=== PATIENT | female | born 1935 | race Caucasian/White ===

== ENCOUNTER 2016-11-10 09:44 | Outpatient (RCR) | payer MEDICARE, OTHER ==
[~2016-11-10 09:44] MED LIST: ASPI-875 PO; CARV3.12 PO; CARV3.122 PO; CPR500T PO; MAGNESIUM PO; METO50TA7 PO; OMEG10005 PO; OMEG1CAP51 PO; OMEGA Q PLUS; OMEGA Q PLUS PO; PRM25T PO; SMV20T PO; fish oil; magnesium
== END 2016-12-06 16:19 | disposition home or self-care (01) ==
PROVIDERS: ATTEND Nurse Practitioner Family
DX: M54.5 Low back pain (principal)

== ENCOUNTER 2017-08-20 16:31 | Emergency (ER) | payer MEDICARE, OTHER ==
[~2017-08-20] VITALS: Ht 167.6 cm; Wt 88.5 kg
--- NOTE | 2017-08-20 16:52 | ED Lower Extremity ---
General Chief Complaint: Lower Extremity Stated Complaint: PAIN IN R LEG Source: patient Exam Limitations: no limitations (CHICHI LUCAS MD) History of Present Illness Time seen by provider: 16:47 Initial Comments The patient is an 81-year-old white female who presents with a complaint of pain in her left leg. She points to an area at about the distal border of the proximal one third of the tibia and on the lateral aspect of the tibia. Has not gotten any worse today. There is been no particular injury that she can recall. There is no past history of thrombophlebitis but she is concerned about this. Onset: yesterday Pain/Injury Location: left leg Method of Injury: unknown (CHICHI LUCAS MD) Initial Comments PAIN BEGAN YESTERDAY NO INJURY OR UNUSUAL ACTIVITY NO SWELLING OR BRUISING NO PARESTHESIAS OR MOTOR DEFICITS (ASHLEY MANN DO) Allergies and Home Medications Allergies Uncoded Allergies: SULFA (Allergy, Mild, HIVES, 04/21/10) Home Medications Lisinopril 10 Mg Tablet, 10 MG PO DAILY, (Reported) Meloxicam 7.5 Mg Tablet, 7.5 MG PO DAILY, #10 Prescribed by: ASHLEY MANN on 08/20/17 182 Constitutional: see HPI EENTM: no symptoms reported Respiratory: no symptoms reported Cardiovascular: no symptoms reported Gastrointestinal: no symptoms reported Genitourinary: no symptoms reported Musculoskeletal: muscle pain Skin: other Psychiatric/Neurological: No Symptoms Reported (CHICHI LUCAS MD) Past Slinoju-Jtwaja-Lntexs Hx Patient Social History Recent Foreign Travel: No Contact w/Someone Who Travel: No (CHICHI LUCAS MD) Surgeries Surgeries: Eye Surgery (CHICHI LUCAS MD) Cardiovascular Cardiac Disorders: Palpitations (CHICHI LUCAS MD) Musculoskeletal Musculoskeletal Disorders: Arthritis (CHICHI LUCAS MD) Physical Exam Vital Signs Vital Sign - Last 12Hours 08/20/17 16:45 Temp 97.0 Pulse 84 Resp 18 B/P (MAP) 199/93 (128) Pulse Ox 97 (ASHLEY MANN DO) Vital Signs Capillary Refill : (CHICHI LUCAS MD) General Appearance: WD/WN, no apparent distress HEENT: normal ENT inspection Neck: full range of motion Cardiovascular: normal peripheral pulses, regular rate, rhythm, no edema, no gallop, no JVD, no murmur Respiratory: chest non-tender, lungs clear, normal breath sounds, no respiratory distress, no accessory muscle use Gastrointestinal: normal bowel sounds, non tender, soft, no organomegaly, no pulsatile mass Legs: left leg soft tissue tenderness Neurologic/Psychiatric: hr clerk II-XII nml as tested, no motor/sensory deficits, alert, normal mood/affect, oriented x 3 Skin: normal color Lymphatic: no adenopathy (CHICHI LUCAS MD) Progress/Results/Core Measures Results/Orders My Orders Orders - ASHLEY MANN DO Naproxen Tablet (Naprosyn Tablet) (08/20/17 18:30) Rx-Naproxen (Rx-Naprosyn) (08/20/17 18:35) (ASHLEY MANN DO) Vital Signs/I&O Vital Sign - Last 12Hours 08/20/17 16:45 Temp 97.0 Pulse 84 Resp 18 B/P (MAP) 199/93 (128) Pulse Ox 97 (ASHLEY MANN DO) Progress Note : Progress Note 1800--ASSUMED CARE FROM DR. LUCAS--PT IN ULTRASOUND BP DOWN AT DISMISSAL PT STATES SHE TAKES HER BP MEDICATION "WHEN SHE THINKS ABOUT IT" --WHICH IS RARELY, AND HAS NOT TAKEN IT TODAY OR FOR SEVERAL DAYS PT AMBULATES WITHOUT DIFFICULTY (ASHLEY MANN DO) Diagnostic Imaging Comments ULTRASOUND --NORMAL, NO DVT. PER TECH REPORT AT 1810 AND PER RADIOLOGIST REPORT @ 1843 Reviewed: Reviewed by Me (ASHLEY MANN DO) Departure Impression Impression: Primary Impression: Pain in left lower leg Disposition: HOME, SELF-CARE Condition: Stable (ERASED) Departure-Patient Inst. Referrals: TELMA VARGAS MD (PCP) Primary Care Physician Patient Instructions: Muscle and Bone Pain (DC) Add. Discharge Instructions: ACTIVITIES TOLERATED FOLLOW UP WITH DR. VARGAS IN 3-4 DAYS IF NO BETTER All discharge instructions reviewed with patient and/or family. Voiced understanding. Scripts Meloxicam (Mobic) 7.5 Mg Tablet 7.5 MG PO DAILY, #10 TAB Prov: ASHLEY MANN DO 08/20/17 Images Extremities-Lower 1 - Mild, Tenderness (ASHLEY MANN DO) CHICHI LUCAS MD Aug 20, 2017 16:52 ASHLEY MANN DO Aug 20, 2017 18:19
[2017-08-20] MEDS ORDERED: LISI10TA2 PO (16:54)
[2017-08-20] MEDS ORDERED: MELO-170 PO (18:26)
[2017-08-20] MEDS ORDERED: NAPROXEN 250 MG (NAPROSYN) TABLET PO ONE (18:30)
--- NOTE | 2017-08-20 18:31 | Diagnostic Imaging Report ---
PROCEDURE: US left lower extremity venous. TECHNIQUE: Multiple real-time grayscale images were obtained over the left lower extremity in various projections. Additional duplex Doppler and color Doppler images were also obtained. INDICATION: Left leg pain. Swelling. FINDINGS: There is normal compression, flow and augmentation from the common femoral vein through the popliteal vein. Visualized calf veins are also patent. IMPRESSION: No sonographic evidence of left lower extremity deep venous thrombosis. Dictated by: Dictated on workstation # [id number]
[2017-08-20] MEDS ORDERED: RX-NAPROXEN (NAPROSYN) 250 MG TAB PPK#4 PO ONE (18:35)
[2017-08-20 18:45] VITALS: BP 186/94
== END 2017-08-20 18:45 | disposition home or self-care (01) ==
LOC: EDUNIT# 16:31 → ER 16:33
DX: M79.662 Pain in left lower leg (principal)
CPT/HCPCS: 99283

== ENCOUNTER 2018-09-03 14:15 | Outpatient (RCR) | payer MEDICARE, OTHER ==
[~2018-09-03 14:15] MED LIST changes: +LISI10TA2 PO; +MELO-170 PO
== END 2018-10-07 | disposition home or self-care (01) ==
PROVIDERS: ATTEND Orthopaedic Surgery Sports Medicine
DX: M17.0 Bilateral primary osteoarthritis of knee (principal)

== ENCOUNTER → 2018-12-13 | Outpatient (CLI) | payer MEDICARE, OTHER ==
[~2018-12-13] MED LIST changes: +CATHETER FLUSH 10 ML SYR IV PRN; +HOLD METFORMIN - RECEIVED CONTRAST 20 ML VIAL IV SCH; +IOHEXOL 350 MG/ML 100 ML (OMNIPAQUE 350) VIAL IV ONE
--- NOTE | 2018-12-13 18:40 | Diagnostic Imaging Report ---
INDICATION: Right-sided neck swelling for one week as well as weakness and dizziness. TECHNIQUE: Axial imaging through the neck and chest was performed after the administration of intravenous contrast. COMPARISON: No prior studies are available for comparison. FINDINGS: CT neck: Visualized intracranial structures are unremarkable. Posterior nasopharynx is unremarkable. There is questionable mild generalized mucosal thickening of the oropharynx but no discrete mass is identified. Parapharyngeal fat planes are preserved. The epiglottis and larynx are unremarkable. No discrete thyroid mass is detected. Submandibular and parotid glands are symmetric bilaterally. There appears to be abnormal soft tissue in the right supraclavicular region, most consistent with lymphadenopathy. This measures 6.0 x 2.6 cm. Additional enlarged lymph nodes medial to this are also seen. Posterior cervical space is unremarkable. No significant jugulodigastric lymphadenopathy is seen. IMPRESSION: Right supraclavicular lymphadenopathy. This could be neoplastic or lymphomatous. No other significant abnormality in the neck is identified. CT chest: Soft tissue fullness in the right supraclavicular region is again noted, described on CT neck study. There are enlarged lymph nodes in the right paratracheal location as well. Largest node measures 1.8 x 1.6 cm. No definite hilar lymphadenopathy is seen. The heart is enlarged. There is no pericardial or pleural fluid identified. No pulmonary parenchymal mass is detected. Upper abdomen is without evidence of an adrenal mass. IMPRESSION: Mediastinal and right supraclavicular lymphadenopathy which could be on a neoplastic or lymphomatous basis. No other significant abnormality is detected. Dictated by: Dictated on workstation # [id number]
== END ==
LOC: RAD 17:06
PROVIDERS: ATTEND Nurse Practitioner Family
DX: R59.0 Localized enlarged lymph nodes (principal)
CPT/HCPCS: 70491; 71260

== ENCOUNTER → 2018-12-24 | Outpatient (CLI) | payer MEDICARE, OTHER ==
[~2018-12-24] VITALS: Ht 167.6 cm; Wt 86.2 kg
[~2018-12-24] MED LIST changes: -CATHETER FLUSH 10 ML SYR IV PRN; -HOLD METFORMIN - RECEIVED CONTRAST 20 ML VIAL IV SCH; -IOHEXOL 350 MG/ML 100 ML (OMNIPAQUE 350) VIAL IV ONE; +LIDOCAINE 1% INJ 20 ML 20 ML VIAL INJ ONE
--- NOTE | 2018-12-24 12:53 | Diagnostic Imaging Report ---
INDICATION: Right supraclavicular mass noted on recent CT. The patient presents for ultrasound guided biopsy. TECHNIQUE: The patient was brought to the procedure room and placed on the bed in the supine position. Ultrasound imaging over the right supraclavicular region was performed to evaluate for an appropriate entry site. The right supraclavicular region was prepped and draped in the usual sterile fashion. A small amount of 1% lidocaine was utilized for local anesthesia. A total of four passes was made into the solid appearing mass in the right supraclavicular region with a 14-gauge Achieve needle. Core sampling was performed. One sample was sent for flow cytometry. The needle was removed and hemostasis was obtained using manual compression. The patient tolerated the procedure well and left the Department in stable condition. IMPRESSION: Successful ultrasound guided core biopsy of the solid right supraclavicular mass. Pathology results are currently pending. Dictated by: Dictated on workstation # [id number]
== END ==
LOC: RAD 11:04
PROVIDERS: ATTEND Surgery
DX: C85.11 Unspecified B-cell lymphoma, lymph nodes of head, face, and neck (principal)
CPT/HCPCS: 76942; 88184; 88185; 88305

== ENCOUNTER → 2019-01-03 | Outpatient (CLI) | payer MEDICARE, OTHER ==
[~2019-01-03] MED LIST changes: -LIDOCAINE 1% INJ 20 ML 20 ML VIAL INJ ONE
== END ==
LOC: CARD 09:50
PROVIDERS: ATTEND Internal Medicine Hematology & Oncology
DX: Z01.810 Encounter for preprocedural cardiovascular examination (principal); C83.30 Diffuse large B-cell lymphoma, unspecified site; I34.0 Nonrheumatic mitral (valve) insufficiency
CPT/HCPCS: 93306

== ENCOUNTER → 2019-01-08 | Outpatient (CLI) | payer MEDICARE, OTHER ==
--- NOTE | 2019-01-08 13:56 | Diagnostic Imaging Report ---
INDICATION: Diffuse large B-cell lymphoma, initial staging. TECHNIQUE: Serum blood glucose level at the time of injection is 97 mg/dL. Patient was administered 13.5 mCi F-18 FDG intravenously in the left antecubital location and PET imaging was performed from the top of the skull to mid thighs. Noncontrast CT was also performed for attenuation correction and anatomic correlation. COMPARISON: No prior PET studies available for comparison. Comparison is made with prior CT neck and chest performed 12/13/2018. FINDINGS: Symmetric activity within the brain is identified. There is a moderately hypermetabolic lymph node in the left jugulodigastric location with SUV max of 4.8. No other hypermetabolic cervical nodes are seen. There is an intense hypermetabolism involving the dominant right supraclavicular mass which was previously biopsied. This demonstrates SUV max of approximately 12.6. Smaller hypermetabolic mass just medial and slightly posterior to this is also noted demonstrating SUV max of 5.8. There is hypermetabolism arising either within or medially posterior to both lobes of the thyroid gland. These both show intense hypermetabolism. Right paratracheal lymph node is hypermetabolic with SUV max of 6.5. No hilar hypermetabolism is seen. Pulmonary parenchyma is unremarkable. Abdomen and pelvis demonstrate physiologic activity within the GI and tracts. No hypermetabolic abdominal or pelvic lymphadenopathy is detected. IMPRESSION: Numerous hypermetabolic lymph nodes are identified in the neck, specifically left jugular digastric as well as right supraclavicular location. There is also intense hypermetabolism arising from within or immediately posterior to the thyroid. Dedicated thyroid ultrasound would be useful. Hypermetabolism in the right paratracheal mediastinum is present as well. No hilar hypermetabolism is seen. No abdominal or pelvic hypermetabolism is identified. Dictated by: Dictated on workstation # [id number]
== END ==
LOC: RAD 09:33
PROVIDERS: ATTEND Internal Medicine Hematology & Oncology
DX: Z01.810 Encounter for preprocedural cardiovascular examination (principal); C83.30 Diffuse large B-cell lymphoma, unspecified site

== ENCOUNTER 2019-01-10 10:03 | Day surgery (SDC) | payer MEDICARE, OTHER ==
[2019-01-10] VITALS (7 sets, daily range): BP systolic 124–153; BP diastolic 57–90
[~2019-01-10] VITALS: Ht 167.6 cm; Wt 86.2 kg
[2019-01-10] MEDS ORDERED: HEParin (CENTRAL IV FLUSH) 500 UNIT/5 ML SYR ONE (12:01)
[2019-01-10] MEDS ORDERED: 0.9% SODIUM CHLORIDE PF INJ 20 ML VIAL ONE (12:01)
[2019-01-10] MEDS ORDERED: BUP/EPI 0.5% 1:200,000 (SENSORCAINE) 30 ML VIAL ONE (12:01)
[2019-01-10] MEDS ORDERED: LIDOCAINE 1% INJ 20 ML 20 ML VIAL ONE (12:01)
[2019-01-10] MEDS ORDERED: LACTATED RINGERS 1,000 ML IV PRN (12:03)
[2019-01-10] MEDS ORDERED: ONDANSETRON 4 MG/2 ML (SDV) Z0FRAN ONE (12:12)
[2019-01-10] MEDS ORDERED: proPOfol 200 MG/20 ML (DIPRIVAN) VIAL IV ONE (12:15)
--- NOTE | 2019-01-10 12:23 | Progress Note-Pre Operative ---
Pre-Operative Progress Note H&P Reviewed The H&P was reviewed, patient examined and no changes noted. Date Seen by Provider: January 10, 2019 Time Seen by Provider: 12:23 Date H&P Reviewed: January 10, 2019 Time H&P Reviewed: 12:23 Pre-Operative Diagnosis: diffuse b cell lymphoma WILLIE STAPLES DO January 10, 2019 12:23
--- OUTSIDE RECORDS SUMMARY | 2019-01-10 12:24 | XMS REPORT | CCD ---
Author Author [facility] Organization [facility] Address [address] [place] [address] Phone Care Team Providers Care Emergency Medical Service Coordinator Name Role Phone PP Unavailable CCM Unavailable Summary Purpose Interface Exchange Insurance Providers Payer name Policy type / Coverage type Covered libertarian ID Effective Begin Date Effective End Date WPS Medicare Part B Medicare Part B [id number] Unknown Cigna Medicare Part B [id number] Unknown Family history Daughter Diagnosis Age At Onset Breast cancer Unknown Mother Diagnosis Age At Onset Heart disease Unknown 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 Unknown Diabetes mellitus Type 2 Unknown Sister Diagnosis Age At Onset Cancer Unknown Father Diagnosis Age At Onset 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 Unknown Stroke Unknown Grandfather Diagnosis Age At Onset Breast cancer Unknown Sister Diagnosis Age At Onset Cancer Unknown Social History Social History Element Codes Description Effective Dates Marital status Unknown 04/27/2011 Number of children Unknown 4 [id number] 04/27/2011 Employment Unknown Retired 04/27/[address]: 161563507 Never smoker 04/27/[address]: 650610435 Never drinks alcohol 04/27/2011 Has the patient ever used illegal drugs? Unknown Has never used illegal drugs 04/27/2011 Allergies, Adverse Reactions, Alerts Substance Reaction Codes Entered Date Inactivated Date Status * NO KNOWN ENVIRONMENTAL ALLERGIES Unknown 04/27/2011 No Inactive Date Active * NO KNOWN FOOD ALLERGIES Unknown 04/27/2011 No Inactive Date Active SULFA(SULFONAMIDE ANTIBIOTICS) Unknown 06/14/2018 No Inactive Date Active Past Medical History Illness Codes Condition Status Onset Date Resolved Date Edema, unspecified ICD- 9: 782.3 ICD-10: R60.9 Active 12/06/2018 Unknown Other specified soft tissue disorders ICD-9: 729.81 ICD-10: M79.89 Active 12/06/2018 Unknown Bilateral primary osteoarthritis of knee ICD-9: 715.96 ICD-10: M17.0 Active 06/14/2018 Unknown Encounter for general adult medical examination with abnormal findings ICD-9: V70.0 ICD-10: Z00.01 Active 02/06/2017 Unknown Essential (primary) hypertension ICD-9: 401.9 ICD-10: I10 Active 07/21/2017 Unknown Low back pain ICD-9: 724.2 ICD-10: M54.5 Active 07/13/2015 Unknown Epigastric pain ICD-9: 789.06 ICD-10: R10.13 Active 07/21/2017 Unknown Encounter for gynecological examination (general) (routine) without abnormal findings ICD-9: V72.31 ICD-10: Z01.419 Active 10/17/2016 Unknown ESSENTIAL HYPERTENSION ICD-9: 401.9 Active 05/19/2014 Unknown HYPERLIPIDEMIA ICD-9: 272.4 Active 05/19/2014 Unknown HYPOTHYROIDISM ICD-9: 244.9 Active 05/19/2014 Unknown NONSPECIF SKIN ERUPT NEC ICD-9: 782.1 Active 10/25/2012 Unknown Drug therapy ICD-9: V58.69 Active 07/02/2012 Unknown Hyperlipidemia Unknown Active 10/20/2011 Unknown 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 Unknown Active 10/20/2011 Unknown Hypothryroidism Unknown Active 10/20/2011 Unknown Anticoagulant long-term use ICD-9: V58.61 Active 10/20/2011 Unknown Lesion of oral mucosa ICD- 9: 528.9 Inactive 10/20/2011 Unknown Nausea ICD-9: 787.02 Inactive 09/15/2011 Unknown BPPV (benign paroxysmal positional vertigo) ICD-9: 386.11 Active 09/15/2011 Unknown Problems Condition Codes Effective Dates Condition Status Edema, unspecified ICD- 9: 782.3 ICD-10: R60.9 12/06/2018 Active Other specified soft tissue disorders ICD-9: 729.81 ICD-10: M79.89 12/06/2018 Active Bilateral primary osteoarthritis of knee ICD-9: 715.96 ICD-10: M17.0 06/14/2018 Active Encounter for general adult medical examination with abnormal findings ICD-9: V70.0 ICD-10: Z00.01 02/06/2017 Active Essential (primary) hypertension ICD-9: 401.9 ICD-10: I10 07/21/2017 Active Low back pain ICD-9: 724.2 ICD-10: M54.5 07/13/2015 Active Epigastric pain ICD-9: 789.06 ICD-10: R10.13 07/21/2017 Active Encounter for gynecological examination (general) (routine) without abnormal findings ICD-9: V72.31 ICD-10: Z01.419 10/17/2016 Active ESSENTIAL HYPERTENSION ICD-9: 401.9 05/19/2014 Active HYPERLIPIDEMIA ICD-9: 272.4 05/19/2014 Active HYPOTHYROIDISM ICD-9: 244.9 05/19/2014 Active NONSPECIF SKIN ERUPT NEC ICD-9: 782.1 10/25/2012 Active Drug therapy ICD-9: V58.69 07/02/2012 Active Hyperlipidemia Unknown 10/20/2011 Active 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 Unknown 10/20/2011 Active Hypothryroidism Unknown 10/20/2011 Active Anticoagulant long-term use ICD-9: V58.61 10/20/2011 Active Lesion of oral mucosa ICD- 9: 528.9 10/20/2011 Inactive Nausea ICD-9: 787.02 09/15/2011 Inactive BPPV (benign paroxysmal positional vertigo) ICD-9: 386.11 09/15/2011 Active Medications Medication Codes Instructions Start Date Stop Date Status Fill Instructions naproxen 500 mg tablet RxNorm: 580650 1 Tablet(s) PO BID 12/06/2018 12/10/2018 Inactive pravastatin 20 mg tablet RxNorm: 945405 1 Tablet(s) PO daily 10/03/2018 01/30/2019 Active pravastatin 20 mg tablet RxNorm: 355929 1 Tablet(s) PO daily 10/03/2018 10/02/2018 Inactive lisinopril 10 mg tablet RxNorm: 921807 TAKE ONE TABLET BY MOUTH ONCE DAILY IN THE EVENING 08/08/2018 No Stop Date Active prednisone 20 mg tablet RxNorm: 730903 2 Tablet(s) PO daily 09/19/2017 09/23/2017 Inactive lisinopril 10 mg tablet RxNorm: 870491 1 Tablet(s) PO QPM 07/21/2017 01/16/2018 Inactive Kenalog 40 mg/mL suspension for injection RxNorm: 9098240 1 Milliliter(s) Inj 02/03/2017 02/03/2017 Inactive Zocor 10 mg tablet RxNorm: 133850 1 Tablet(s) PO daily 05/14/2015 05/13/2015 Inactive Zocor 10 mg tablet RxNorm: 308405 1 Tablet(s) PO daily 05/14/2015 05/06/2016 Inactive Zocor 10 mg tablet RxNorm: 247657 1 Tablet(s) PO daily 05/14/2015 05/07/2016 Inactive hvolndpj-sdcjqllog-ctstwxtie 3.5 mg/g-10,000 unit/g-0.5 %topical cream RxNorm: 2375621 3 gtts TOP TID 11/17/2014 11/26/2014 Inactive [SAVINGS FOR NON-COVERED DRUGS -- [id number], PCN: [id number], Group: XXXXX, ID# [id number], Questions: . THIS IS NOT INSURANCE.] simvastatin 40 mg tablet RxNorm: 840625 1/2 Tablet(s) PO QHS 10/09/2013 11/03/2013 Inactive Synthroid 25 mcg tablet RxNorm: 492567 1 Tablet(s) PO daily 08/19/2013 11/11/2014 Inactive clobetasol 0.05 % Topical Cream RxNorm: 581039 1 Application TOP TID PRN 04/05/2013 07/03/2013 Inactive nystatin 100,000 unit/gram Topical Powder RxNorm: 010313 Gram(s) TOP apply to affected area as needed 03/22/2013 10/16/2016 Inactive fluconazole 150 mg tablet RxNorm: 611847 1 Tablet(s) PO 03/19/2013 03/18/2013 Inactive take one at outbreak and then use nystatin powder (she has nystatin at home) fluconazole 150 mg tablet RxNorm: 137170 1 Tablet(s) PO 03/19/2013 03/25/2013 Inactive take one at outbreak and then use nystatin powder (she has nystatin at home) simvastatin 40 mg tablet RxNorm: 796923 1/2 Tablet(s) PO QHS 03/18/2013 07/15/2013 Inactive Synthroid 25 mcg tablet RxNorm: 026092 1 Tablet(s) PO daily 03/18/2013 08/14/2013 Inactive clobetasol 0.05 % Topical Cream RxNorm: 185672 1 Application TOP TID PRN 10/25/2012 01/22/2013 Inactive Coreg 3.125 mg tablet RxNorm: 003699 1 Tablet(s) PO BID 04/17/2012 07/03/2012 Inactive Coreg 3.125 mg tablet RxNorm: 938147 1 Tablet(s) PO BID 03/16/2012 04/14/2012 Inactive Diflucan 150 mg Tab RxNorm: 396129 1 Tablet(s) PO daily 12/26/2011 01/22/2012 Inactive simvastatin 40 mg tablet RxNorm: 894496 1/2 Tablet(s) PO QHS 04/27/2011 03/17/2013 Inactive Vitamin C Oral RxNorm: Oral No Start Date 10/16/2016 Inactive Synthroid 25 mcg tablet RxNorm: 782202 Tablet(s) PO No Start Date 03/17/2013 Inactive coenzyme Q10 75 mg Cap RxNorm: 932606 1 Capsule(s) PO daily No Start Date 10/16/2016 Inactive Coreg 3.125 mg tablet RxNorm: 454554 1 Tablet(s) PO BID No Start Date 03/15/2012 Inactive simvastatin 40 mg Tab RxNorm: 938647 1 Tablet(s) PO QHS No Start Date 04/26/2011 Inactive aspirin 81 mg capsule,delayed release RxNorm: 231948 1 Capsule(s) PO daily No Start Date 10/16/2016 Inactive metoprolol succinate ER 50 mg tablet,extended release 24 hr RxNorm: 207934 1 Tablet(s) PO daily No Start Date 10/16/2016 Inactive lisinopril 20 mg tablet RxNorm: 100691 1 Tablet(s) PO as needed No Start Date 07/20/2017 Inactive Bystolic 5 mg Tab RxNorm: 214747 1 Tablet(s) PO daily No Start Date 10/30/2011 Inactive clobetasol 0.05 % Topical Cream RxNorm: 800169 TOP No Start Date 10/24/2012 Inactive omega-3 fatty acids 1,250 mg Cap RxNorm: 6101650 1 Capsule(s) PO daily No Start Date 10/16/2016 Inactive coenzyme Q10 oral RxNorm: 84512 oral No Start Date 06/13/2018 Inactive meclizine 12.5 mg Tab RxNorm: 858355 1/2-1 Tablet(s) PO Q6 PRN No Start Date 05/18/2014 Inactive promethazine 25 mg Rectal Suppository RxNorm: 497785 1 Suppository RTL Q6 PRN No Start Date 07/03/2012 Inactive nystatin 100,000 unit/gram Topical Powder RxNorm: 032665 Gram(s) TOP apply to affected area as needed No Start Date 03/21/2013 Inactive Medication Administered Medication Codes Instructions Start Date Status Kenalog 40 mg/mL suspension for injection RxNorm: 7009625 1Milliliter 02/03/2017 No longer Active Immunizations Vaccine Codes Date Status Influenza CVX: 141 05/22/2013 completed Assessments Condition Codes Effective Dates Other specified soft tissue disorders ICD-10: M79.89 ICD-9: 729.81 12/12/2018 Edema, unspecified ICD-10: R60.9 ICD-9: 782.3 12/12/2018 Bilateral primary osteoarthritis of knee ICD-10: M17.0 ICD-9: 715.96 06/14/2018 Encounter for general adult medical examination with abnormal findings ICD-10: Z00.01 ICD-9: V70.0 06/14/2018 Low back pain ICD-10: M54.5 ICD-9: 724.2 09/19/2017 Epigastric pain ICD-10: R10.13 ICD-9: 789.06 07/21/2017 Essential (primary) hypertension ICD-10: I10 ICD-9: 401.9 07/21/2017 Encounter for gynecological examination (general) (routine) without abnormal findings ICD-10: Z01.419 ICD-9: V72.31 10/17/2016 ESSENTIAL HYPERTENSION ICD-9: 401.9 11/17/2014 HYPERLIPIDEMIA ICD-9: 272.4 05/19/2014 HYPOTHYROIDISM ICD-9: 244.9 05/19/2014 ENCNTR LONG-RX USE NEC ICD-9: V58.69 07/24/2013 NONSPECIF SKIN ERUPT NEC ICD-9: 782.1 10/25/2012 Anticoagulant long-term use ICD-9: V58.61 10/20/2011 BPPV (benign paroxysmal positional vertigo) ICD-9: 386.11 09/15/2011 Nausea ICD-9: 787.02 09/15/2011 Lesion of oral mucosa ICD-9: 528.9 05/10/2011 Reason For Visit Reason For Visit Effective Dates Notes shoulder pain 12/12/2018 shoulder pain 12/06/2018 Annual Medicare Wellness Exam 06/14/2018 low back pain 09/19/2017 hypertension 07/21/2017 Annual Medicare Wellness Exam 02/06/2017 back pain 02/03/2017 well woman exam (65+ years) 10/17/2016 back pain 07/14/2015 hypertension 11/17/2014 hypertension 05/19/2014 color change 11/04/2013 hypertension 08/05/2013 hypertension 05/22/2013 hypertension 02/20/2013 hypertension 10/25/2012 hypertension 07/04/2012 medication follow up 12/26/2011 hypertension 10/26/2011 nausea 09/15/2011 oral lesion 05/10/2011 on the roof of mouth hypertension 04/27/2011 Results Observation Observation Code Item Item Code Result Date Comp Metabolic Kfb159 NA 140 mEq/L 12/07/2018 Comp Metabolic Xdb281 K 4.5 mEq/L 12/07/2018 Comp Metabolic Ggn760 CL 105 mEq/L 12/07/2018 Comp Metabolic Gqk108 CO2 26.0 mEq/L 12/07/2018 Comp Metabolic Lvl568 ANION GAP 14 12/07/2018 Comp Metabolic Jhg558 GLUCOSE 90 mg/dL 12/07/2018 Comp Metabolic Gqg570 Creat 0.9 mg/dL 12/07/2018 Comp Metabolic Lny061 eGFR 66 ml/min/1.73m2 12/07/2018 Comp Metabolic Dzb629 BUN 22 mg/dL 12/07/2018 Comp Metabolic Qsh571 B/C Ratio 25.3 Ratio 12/07/2018 Comp Metabolic Hie659 CALCIUM 9.7 mg/dL 12/07/2018 Comp Metabolic Mpy970 ALK PHOS 67 U/L 12/07/2018 Comp Metabolic Eru988 AST(SGOT) 22 U/L 12/07/2018 Comp Metabolic Hma085 ALT(SGPT) 16 U/L 12/07/2018 Comp Metabolic Zlk911 BILI T 0.4 mg/dL 12/07/2018 Comp Metabolic Gkd680 ALBUMIN 3.9 g/dL 12/07/2018 Comp Metabolic Bba586 TPRO 6.2 g/dL 12/07/2018 Comp Metabolic Qxl912 GLOB 2.3 g/dL 12/07/2018 Comp Metabolic Ezd631 A/G Ratio 1.7 Ratio 12/07/2018 Comp Metabolic Mry503 Osmo 282 mOsmo 12/07/2018 Cbc With Differential Ord2 WBC 4.60 K/ul 12/06/2018 Cbc With Differential Ord2 RBC 4.21 M/ul 12/06/2018 Cbc With Differential Ord2 HGB 13.1 g/dl 12/06/2018 Cbc With Differential Ord2 HCT 40.0 % 12/06/2018 Cbc With Differential Ord2 Neut% 46.9 % 12/06/2018 Cbc With Differential Ord2 MCV 95.0 fl 12/06/2018 Cbc With Differential Ord2 Lymph% 35.4 % 12/06/2018 Cbc With Differential Ord2 MCH 31.1 pg 12/06/2018 Cbc With Differential Ord2 [place]% 12.2 % 12/06/2018 Cbc With Differential Ord2 MCHC 32.8 pg 12/06/2018 Cbc With Differential Ord2 Eos% 4.8 % 12/06/2018 Cbc With Differential Ord2 PLT 326 K/ul 12/06/2018 Cbc With Differential Ord2 Baso% 0.7 % 12/06/2018 Cbc With Differential Ord2 RDW 15.1 % 12/06/2018 Cbc With Differential Ord2 Neut ABS# 2.16 K/ul 12/06/2018 Cbc With Differential Ord2 Lymph ABS# 1.63 K/ul 12/06/2018 Cbc With Differential Ord2 [place] ABS# 0.6 K/ul 12/06/2018 Cbc With Differential Ord2 Eos ABS# 0.2 K/ul 12/06/2018 Cbc With Differential Ord2 Baso ABS# 0.0 K/ul 12/06/2018 Tsh Ord6 TSH (3rd IS) 2.80 uIU/mL 12/06/2018 Lipid Ord30 CHOL 285 mg/dL 10/02/2018 Lipid Ord30 HDL 60.0 mg/dl 10/02/2018 Lipid Ord30 TRIG 145 mg/dL 10/02/2018 Lipid Ord30 LDL 196 mg/dL 10/02/2018 Lipid Ord30 C/HDL 4.8 Ratio 10/02/2018 Cbc With Differential Ord2 WBC 4.60 K/ul 06/18/2018 Cbc With Differential Ord2 RBC 4.26 M/ul 06/18/2018 Cbc With Differential Ord2 HGB 13.4 g/dl 06/18/2018 Cbc With Differential Ord2 HCT 41.0 % 06/18/2018 Cbc With Differential Ord2 Neut% 41.7 % 06/18/2018 Cbc With Differential Ord2 MCV 96.2 fl 06/18/2018 Cbc With Differential Ord2 Lymph% 39.6 % 06/18/2018 Cbc With Differential Ord2 MCH 31.5 pg 06/18/2018 Cbc With Differential Ord2 [place]% 13.3 % 06/18/2018 Cbc With Differential Ord2 MCHC 32.7 pg 06/18/2018 Cbc With Differential Ord2 Eos% 4.1 % 06/18/2018 Cbc With Differential Ord2 PLT 310 K/ul 06/18/2018 Cbc With Differential Ord2 Baso% 1.3 % 06/18/2018 Cbc With Differential Ord2 RDW 15.3 % 06/18/2018 Cbc With Differential Ord2 Neut ABS# 1.92 K/ul 06/18/2018 Cbc With Differential Ord2 Lymph ABS# 1.82 K/ul 06/18/2018 Cbc With Differential Ord2 [place] ABS# 0.6 K/ul 06/18/2018 Cbc With Differential Ord2 Eos ABS# 0.2 K/ul 06/18/2018 Cbc With Differential Ord2 Baso ABS# 0.1 K/ul 06/18/2018 Lipid Ord30 CHOL 259 mg/dL 06/18/2018 Lipid Ord30 HDL 59.0 mg/dl 06/18/2018 Lipid Ord30 TRIG 115 mg/dL 06/18/2018 Lipid Ord30 LDL 177 mg/dL 06/18/2018 Lipid Ord30 C/HDL 4.4 Ratio 06/18/2018 Tsh Ord6 TSH (3rd IS) 2.11 uIU/mL 06/18/2018 Comp Metabolic Eie050 NA 141 mEq/L 06/18/2018 Comp Metabolic Irp671 K 4.7 mEq/L 06/18/2018 Comp Metabolic Oer501 CL 106 mEq/L 06/18/2018 Comp Metabolic Dmt207 CO2 28.0 mEq/L 06/18/2018 Comp Metabolic Bfn084 ANION GAP 12 06/18/2018 Comp Metabolic Zmb540 GLUCOSE 85 mg/dL 06/18/2018 Comp Metabolic Ync812 Creat 0.8 mg/dL 06/18/2018 Comp Metabolic Zpf885 eGFR 71 ml/min/1.73m2 06/18/2018 Comp Metabolic Qsl211 BUN 18 mg/dL 06/18/2018 Comp Metabolic Ltz048 B/C Ratio 22.2 Ratio 06/18/2018 Comp Metabolic Qcw900 CALCIUM 9.4 mg/dL 06/18/2018 Comp Metabolic Jrl897 ALK PHOS 69 U/L 06/18/2018 Comp Metabolic Ilr472 AST(SGOT) 22 U/L 06/18/2018 Comp Metabolic Bcj327 ALT(SGPT) 16 U/L 06/18/2018 Comp Metabolic Mlp077 BILI T 0.5 mg/dL 06/18/2018 Comp Metabolic Cjf458 ALBUMIN 3.9 g/dL 06/18/2018 Comp Metabolic Ith028 TPRO 6.5 g/dL 06/18/2018 Comp Metabolic Pvf444 GLOB 2.6 g/dL 06/18/2018 Comp Metabolic Cmn986 A/G Ratio 1.5 Ratio 06/18/2018 Comp Metabolic Vnh912 Osmo 282 mOsmo 06/18/2018 Lipid Ord30 CHOL 248 mg/dL 10/28/2016 Lipid Ord30 HDL 60.0 mg/dl 10/28/2016 Lipid Ord30 TRIG 102 mg/dL 10/28/2016 Lipid Ord30 LDL 168 mg/dL 10/28/2016 Lipid Ord30 C/HDL 4.1 Ratio 10/28/2016 Cbc With Differential Ord2 WBC 4.95 K/ul 10/28/2016 Cbc With Differential Ord2 RBC 4.21 M/ul 10/28/2016 Cbc With Differential Ord2 HGB 13.1 g/dl 10/28/2016 Cbc With Differential Ord2 HCT 40.1 % 10/28/2016 Cbc With Differential Ord2 Neut% 40.5 % 10/28/2016 Cbc With Differential Ord2 MCV 95.2 fl 10/28/2016 Cbc With Differential Ord2 Lymph% 41.8 % 10/28/2016 Cbc With Differential Ord2 MCH 31.1 pg 10/28/2016 Cbc With Differential Ord2 [place]% 11.9 % 10/28/2016 Cbc With Differential Ord2 MCHC 32.7 pg 10/28/2016 Cbc With Differential Ord2 Eos% 4.8 % 10/28/2016 Cbc With Differential Ord2 PLT 300 K/ul 10/28/2016 Cbc With Differential Ord2 Baso% 1.0 % 10/28/2016 Cbc With Differential Ord2 RDW 15.1 % 10/28/2016 Cbc With Differential Ord2 Neut ABS# 2.00 K/ul 10/28/2016 Cbc With Differential Ord2 Lymph ABS# 2.07 K/ul 10/28/2016 Cbc With Differential Ord2 [place] ABS# 0.6 K/ul 10/28/2016 Cbc With Differential Ord2 Eos ABS# 0.2 K/ul 10/28/2016 Cbc With Differential Ord2 Baso ABS# 0.1 K/ul 10/28/2016 Tsh Ord6 hTSH II 2.77 uIU/mL 10/28/2016 Comp Metabolic Wch299 NA 138 mEq/L 10/28/2016 Comp Metabolic Xbx869 K 4.6 mEq/L 10/28/2016 Comp Metabolic Vmn819 CL 104 mEq/L 10/28/2016 Comp Metabolic Upi370 CO2 29.0 mEq/L 10/28/2016 Comp Metabolic Zio351 ANION GAP 10 10/28/2016 Comp Metabolic Zzr010 GLUCOSE 88 mg/dL 10/28/2016 Comp Metabolic Prh644 Creat 0.9 mg/dL 10/28/2016 Comp Metabolic Ohj532 eGFR 60 ml/min/1.73m2 10/28/2016 Comp Metabolic Wzk205 BUN 27 mg/dL 10/28/2016 Comp Metabolic Sqn055 B/C Ratio 28.7 Ratio 10/28/2016 Comp Metabolic Lmp141 CALCIUM 9.7 mg/dL 10/28/2016 Comp Metabolic Rer350 ALK PHOS 58 U/L 10/28/2016 Comp Metabolic Nxb056 AST(SGOT) 20 U/L 10/28/2016 Comp Metabolic Fbk190 ALT(SGPT) 14 U/L 10/28/2016 Comp Metabolic Nwr893 BILI T 0.6 mg/dL 10/28/2016 Comp Metabolic Lxo600 ALBUMIN 3.6 g/dL 10/28/2016 Comp Metabolic Yio150 TPRO 6.3 g/dL 10/28/2016 Comp Metabolic Cup177 GLOB 2.7 g/dL 10/28/2016 Comp Metabolic Xty988 A/G Ratio 1.3 Ratio 10/28/2016 Comp Metabolic Jza507 Osmo 280 mOsmo 10/28/2016 LIPID GRP HDL TEST 60 MG/DL 05/13/2015 LIPID GRP TRIG 100 MG/DL 05/13/2015 LIPID GRP TEST LDL 190 MG/DL 05/13/2015 LIPID GRP CHOL 270 MG/DL 05/13/2015 LIPID GRP RCHOL/HDL 4.50 RATIO 05/13/2015 LIPID GRP NON-HDL CH 210 MG/DL 05/13/2015 LIVER PNL 2242801 AST 29 U/L 05/13/2015 LIVER PNL 1506832 ALK PHOS 70 U/L 05/13/2015 LIVER PNL 6892114 BILI TOT 0.5 MG/DL 05/13/2015 LIVER PNL 6813647 ALT 27 IU/L 05/13/2015 LIVER PNL 4665392 BILI DIR 0.1 MG/DL 05/13/2015 LIVER PNL 4229470 ALBUMIN 3.8 GM/DL 05/13/2015 LIVER PNL 4091108 PROT TOT 7.3 GM/DL 05/13/2015 TSH 7701054 TSH 3.354 uIU/ML 07/24/2013 LIPID GRP HDL TEST 46 MG/DL 07/24/2013 LIPID GRP TRIG 86 MG/DL 07/24/2013 LIPID GRP TEST LDL 113 MG/DL 07/24/2013 LIPID GRP CHOL 176 MG/DL 07/24/2013 LIPID GRP RCHOL/HDL 3.83 RATIO 07/24/2013 CHEM 14 4138759 AST 25 U/L 07/24/2013 CHEM 14 8595062 ALT 20 IU/L 07/24/2013 CHEM 14 6443664 BUN 18 MG/DL 07/24/2013 CHEM 14 9709863 ALBUMIN 4.0 GM/DL 07/24/2013 CHEM 14 1032786 CHLORIDE 105 MMOL/L 07/24/2013 CHEM 14 9432289 BILI TOT 0.4 MG/DL 07/24/2013 CHEM 14 1552744 ALK PHOS 57 U/L 07/24/2013 CHEM 14 3324605 SODIUM 139 MMOL/L 07/24/2013 CHEM 14 3937619 CREATININE 0.83 MG/DL 07/24/2013 CHEM 14 7756571 CALCIUM 10.0 MG/DL 07/24/2013 CHEM 14 6219933 POTASSIUM 4.5 MMOL/L 07/24/2013 CHEM 14 2837338 PROT TOT 6.3 GM/DL 07/24/2013 CHEM 14 0406184 GLUCOSE 91 MG/DL 07/24/2013 CHEM 14 8544293 BICARB 28 MMOL/L 07/24/2013 CHEM 14 5829759 ANION GAP 6 MEQ/L 07/24/2013 FREE T4 4093228 FREE T4 1.17 NG/DL 07/24/2013 GFR CALC 1141665 GFR AA >60 ML/MIN 07/24/2013 GFR CALC 3436400 GFR NON-AA >60 ML/MIN 07/24/2013 CBC 5014544 WBC 5.7 10e9/L 07/24/2013 CBC 4824648 RBC 4.39 10e12/L 07/24/2013 CBC 3696292 HGB 13.6 g/dL 07/24/2013 CBC 1641628 HCT DET 41.7 % 07/24/2013 CBC 4944785 MCV 95.0 fL 07/24/2013 CBC 1084196 MCH 31.0 pg 07/24/2013 CBC 3403131 MCHC 32.6 g/dL 07/24/2013 CBC 4819424 PLT 341 10e9/L 07/24/2013 CBC 5226746 MPV 9.7 fL 07/24/2013 CBC 7871808 [place] % 37.9 % 07/24/2013 CBC 6310313 LY % 38.1 % 07/24/2013 CBC 2681485 MON % 12.0 % 07/24/2013 CBC 1682835 EOS % 9.9 % 07/24/2013 CBC 0770932 BASO % 2.1 % 07/24/2013 CBC 0061664 RDW 14.1 % 07/24/2013 CBC 0744029 ABS [place] 2.16 10e9/L 07/24/2013 CBC 6377919 ABS LYMPH 2.17 10e9/L 07/24/2013 CBC 5120185 ABS MONO 0.68 10e9/L 07/24/2013 CBC 5805599 ABS EOS 0.56 10e9/L 07/24/2013 CBC 8467490 ABS BASO 0.12 10e9/L 07/24/2013 CBC 4695231 RDW-SD 47.2 fL 07/24/2013 FREE T4 3730934 FREE T4 0.97 NG/DL 03/14/2013 TSH 3048795 TSH 6.175 uIU/ML 03/13/2013 LIPID GRP HDL TEST 51 MG/DL 03/13/2013 LIPID GRP TRIG 182 MG/DL 03/13/2013 LIPID GRP TEST LDL 191 MG/DL 03/13/2013 LIPID GRP CHOL 278 MG/DL 03/13/2013 LIPID GRP RCHOL/HDL 5.45 RATIO 03/13/2013 CHEM 14 6387356 AST 23 U/L 03/13/2013 CHEM 14 0151603 ALT 18 IU/L 03/13/2013 CHEM 14 1227005 BUN 21 MG/DL 03/13/2013 CHEM 14 2833096 ALBUMIN 4.1 GM/DL 03/13/2013 CHEM 14 0575645 CHLORIDE 107 MMOL/L 03/13/2013 CHEM 14 5541356 BILI TOT 0.4 MG/DL 03/13/2013 CHEM 14 6650858 ALK PHOS 57 U/L 03/13/2013 CHEM 14 1129820 SODIUM 140 MMOL/L 03/13/2013 CHEM 14 4978999 CREATININE 0.94 MG/DL 03/13/2013 CHEM 14 6368098 CALCIUM 9.8 MG/DL 03/13/2013 CHEM 14 8070250 POTASSIUM 4.4 MMOL/L 03/13/2013 CHEM 14 0798557 PROT TOT 6.1 GM/DL 03/13/2013 CHEM 14 2723868 GLUCOSE 90 MG/DL 03/13/2013 CHEM 14 5643216 BICARB 27 MMOL/L 03/13/2013 CHEM 14 7874390 ANION GAP 6 MEQ/L 03/13/2013 GFR CALC 9166279 GFR AA >60 ML/MIN 03/13/2013 GFR CALC 3808554 GFR NON-AA 57.0L ML/MIN 03/13/2013 CBC 3909903 WBC 4.9 10e9/L 07/02/2012 CBC 9727495 RBC 4.20 10e12/L 07/02/2012 CBC 4250472 HGB 13.3 g/dL 07/02/2012 CBC 4588885 HCT DET 40.2 % 07/02/2012 CBC 0398805 MCV 95.7 fL 07/02/2012 CBC 5478008 MCH 31.7 pg 07/02/2012 CBC 1395122 MCHC 33.1 g/dL 07/02/2012 CBC 5407131 PLT 317 10e9/L 07/02/2012 CBC 6928218 MPV 10.3 fL 07/02/2012 CBC 5016398 [place] % 40.1 % 07/02/2012 CBC 4593857 LY % 42.8 % 07/02/2012 CBC 1268489 MON % 12.0 % 07/02/2012 CBC 1776345 EOS % 4.3 % 07/02/2012 CBC 6497579 BASO % 0.8 % 07/02/2012 CBC 6374239 RDW 13.9 % 07/02/2012 CBC 2161151 ABS [place] 1.96 10e9/L 07/02/2012 CBC 9707358 ABS LYMPH 2.10 10e9/L 07/02/2012 CBC 8629570 ABS MONO 0.59 10e9/L 07/02/2012 CBC 1003819 ABS EOS 0.21 10e9/L 07/02/2012 CBC 5513529 ABS BASO 0.04 10e9/L 07/02/2012 CBC 6941558 RDW-SD 47.3 fL 07/02/2012 CHEM 14 4901525 AST 23 U/L 07/02/2012 CHEM 14 5493381 ALT 20 IU/L 07/02/2012 CHEM 14 2967871 BUN 14 MG/DL 07/02/2012 CHEM 14 8942931 ALBUMIN 3.8 GM/DL 07/02/2012 CHEM 14 3872679 CHLORIDE 108 MMOL/L 07/02/2012 CHEM 14 0307346 BILI TOT 0.4 MG/DL 07/02/2012 CHEM 14 7028492 ALK PHOS 66 U/L 07/02/2012 CHEM 14 3560273 SODIUM 143 MMOL/L 07/02/2012 CHEM 14 5171812 CREATININE 0.88 MG/DL 07/02/2012 CHEM 14 7140701 CALCIUM 9.7 MG/DL 07/02/2012 CHEM 14 7536713 POTASSIUM 4.6 MMOL/L 07/02/2012 CHEM 14 6222428 PROT TOT 6.4 GM/DL 07/02/2012 CHEM 14 [id number] GLUCOSE 87 MG/DL 07/02/2012 CHEM 14 5376102 BICARB 28 MMOL/L 07/02/2012 CHEM 14 6299101 ANION GAP 7 MEQ/L 07/02/2012 GFR CALC 5242974 GFR AA >60 ML/MIN 07/02/2012 GFR CALC 8657672 GFR NON-AA >60 ML/MIN 07/02/2012 FREE T4 [id number] FREE T4 1.10 NG/DL 07/02/2012 TSH [id number] TSH 2.909 uIU/ML 07/02/2012 LIPID GRP HDL TEST 54 MG/DL 07/02/2012 LIPID GRP TRIG 102 MG/DL 07/02/2012 LIPID GRP TEST LDL 109 MG/DL 07/02/2012 LIPID GRP CHOL 183 MG/DL 07/02/2012 LIPID GRP RCHOL/HDL 3.39 RATIO 07/02/2012 URINALYSIS NONAUTO W/O SCOPE 03668 Specific [place] 1.005 DateTime(Free Text in Aprima) URINALYSIS NONAUTO W/O SCOPE 28688 PH 5.0 DateTime(Free Text in Aprima) URINALYSIS NONAUTO W/O SCOPE 72100 GLUCOSE NEG DateTime(Free Text in Aprima) URINALYSIS NONAUTO W/O SCOPE 15350 Protein NEG DateTime(Free Text in Aprima) URINALYSIS NONAUTO W/O SCOPE 50018 Blood NEG DateTime(Free Text in Aprima) URINALYSIS NONAUTO W/O SCOPE 23170 Bilirubin NEG DateTime(Free Text in Aprima) URINALYSIS NONAUTO W/O SCOPE 54303 Ketones NEG DateTime(Free Text in Aprima) URINALYSIS NONAUTO W/O SCOPE 39975 Urobilinogen NEG DateTime(Free Text in Aprima) URINALYSIS NONAUTO W/O SCOPE 89759 Nitrite NEG DateTime(Free Text in Aprima) URINALYSIS NONAUTO W/O SCOPE 20124 Leukocytes NEG DateTime(Free Text in Apr) Review of Systems System Result Effective Dates Constitutional No recent illness 12/12/2018 Constitutional No chills 12/12/2018 Constitutional No diaphoresis 12/12/2018 Constitutional No fever 12/12/2018 Eyes No eye erythema 12/12/2018 Ears/Nose/Throat/Neck No nasal discharge 12/12/2018 Cardiovascular No chest pain/pressure 12/12/2018 Respiratory No chest congestion 12/12/2018 Respiratory No cough 12/12/2018 Musculoskeletal neck pain 12/12/2018 Neurologic No alteration of consciousness 12/12/2018 Neurologic No mental status change 12/12/2018 Constitutional No recent illness 12/06/2018 Constitutional No chills 12/06/2018 Constitutional No diaphoresis 12/06/2018 Constitutional No fever 12/06/2018 Eyes No eye erythema 12/06/2018 Ears/Nose/Throat/Neck No nasal discharge 12/06/2018 Cardiovascular No chest pain/pressure 12/06/2018 Respiratory No cough 12/06/2018 Respiratory No chest congestion 12/06/2018 Neurologic No alteration of consciousness 12/06/2018 Neurologic No mental status change 12/06/2018 Musculoskeletal neck pain 12/06/2018 Constitutional No recent illness 06/14/2018 Constitutional No chills 06/14/2018 Constitutional No diaphoresis 06/14/2018 Constitutional No fever 06/14/2018 Eyes No blindness 06/14/2018 Ears/Nose/Throat/Neck No nasal discharge 06/14/2018 Cardiovascular No chest pain/pressure 06/14/2018 Respiratory No cough 06/14/2018 Dermatologic No rash 06/14/2018 Neurologic No alteration of consciousness 06/14/2018 Neurologic No mental status change 06/14/2018 Musculoskeletal joint complaint 06/14/2018 Musculoskeletal back pain 06/14/2018 Genitourinary/Nephrology No dysuria 06/14/2018 Gastrointestinal No abdominal pain 06/14/2018 Psychiatric No anxiety 06/14/2018 Musculoskeletal back pain 09/19/2017 Musculoskeletal No muscle weakness 09/19/2017 Dermatologic No rash 09/19/2017 Neurologic No alteration of consciousness 09/19/2017 Constitutional No recent illness 09/19/2017 Constitutional No fever 09/19/2017 Constitutional No chills 09/19/2017 Eyes No eye erythema 09/19/2017 Ears/Nose/Throat/Neck No nasal discharge 09/19/2017 Respiratory No cough 09/19/2017 Dermatologic No sores 09/19/2017 Neurologic No mental status change 09/19/2017 Constitutional No recent illness 07/21/2017 Constitutional No anorexia 07/21/2017 Constitutional No night sweats 07/21/2017 Constitutional No chills 07/21/2017 Constitutional No diaphoresis 07/21/2017 Constitutional No fatigue 07/21/2017 Constitutional No fever 07/21/2017 Constitutional No insomnia 07/21/2017 Constitutional No malaise 07/21/2017 Constitutional No weight loss 07/21/2017 Constitutional weight gain 07/21/2017 Eyes No eye discharge 07/21/2017 Eyes No eye erythema 07/21/2017 Ears/Nose/Throat/Neck No dizziness 07/21/2017 Ears/Nose/Throat/Neck No headache 07/21/2017 Cardiovascular No chest pain/pressure 07/21/2017 Cardiovascular No edema 07/21/2017 Respiratory No productive sputum 07/21/2017 Respiratory No cough 07/21/2017 Respiratory dyspnea on exertion 07/21/2017 Gastrointestinal abdominal pain 07/21/2017 Gastrointestinal constipation 07/21/2017 Gastrointestinal No diarrhea 07/21/2017 Gastrointestinal gastroesophageal reflux 07/21/2017 Gastrointestinal gas and bloating 07/21/2017 Gastrointestinal No vomiting 07/21/2017 Gastrointestinal No nausea 07/21/2017 Genitourinary/Nephrology No dysuria 07/21/2017 Musculoskeletal No joint complaint 07/21/2017 Dermatologic No rash 07/21/2017 Neurologic No alteration of consciousness 07/21/2017 Constitutional No recent illness 02/06/2017 Constitutional No chills 02/06/2017 Constitutional No diaphoresis 02/06/2017 Constitutional No fever 02/06/2017 Dermatologic No rash 02/06/2017 Neurologic No alteration of consciousness 02/06/2017 Eyes No eye erythema 02/06/2017 Ears/Nose/Throat/Neck No nasal discharge 02/06/2017 Cardiovascular No chest pain/pressure 02/06/2017 Respiratory No cough 02/06/2017 Neurologic No mental status change 02/06/2017 Constitutional No recent illness 02/03/2017 Constitutional No anorexia 02/03/2017 Constitutional No night sweats 02/03/2017 Constitutional No chills 02/03/2017 Constitutional No diaphoresis 02/03/2017 Constitutional No fatigue 02/03/2017 Constitutional No fever 02/03/2017 Constitutional No insomnia 02/03/2017 Constitutional No malaise 02/03/2017 Constitutional No weight loss 02/03/2017 Constitutional No weight gain 02/03/2017 Musculoskeletal back pain 02/03/2017 Musculoskeletal No muscle weakness 02/03/2017 Dermatologic No rash 02/03/2017 Dermatologic No sores 02/03/2017 Neurologic No alteration of consciousness 02/03/2017 Constitutional No chills 10/17/2016 Constitutional No fever 10/17/2016 Eyes No vision change 10/17/2016 Respiratory No chest congestion 10/17/2016 Respiratory No chest tightness 10/17/2016 Respiratory No cough 10/17/2016 Gastrointestinal No constipation 10/17/2016 Gastrointestinal No diarrhea 10/17/2016 Gastrointestinal No vomiting 10/17/2016 Musculoskeletal No swelling 10/17/2016 Musculoskeletal No arthralgia(s) 10/17/2016 Neurologic No ataxia 10/17/2016 Neurologic No dizziness 10/17/2016 Neurologic No headache 10/17/2016 Psychiatric No anxiety 10/17/2016 Psychiatric No depression 10/17/2016 Ears/Nose/Throat/Neck No dizziness 10/17/2016 Ears/Nose/Throat/Neck No headache 10/17/2016 Cardiovascular No chest pain/pressure 10/17/2016 Genitourinary/Nephrology No dysuria 10/17/2016 Genitourinary/Nephrology vaginal discharge 10/17/2016 Dermatologic No rash 10/17/2016 Constitutional No chills 07/14/2015 Constitutional No fever 07/14/2015 Eyes No vision change 07/14/2015 Respiratory No chest congestion 07/14/2015 Respiratory No chest tightness 07/14/2015 Respiratory No cough 07/14/2015 Gastrointestinal No constipation 07/14/2015 Gastrointestinal No diarrhea 07/14/2015 Gastrointestinal No vomiting 07/14/2015 Psychiatric No anxiety 07/14/2015 Psychiatric No depression 07/14/2015 Musculoskeletal back pain 07/14/2015 Neurologic No alteration of consciousness 07/14/2015 Constitutional No chills 11/17/2014 Constitutional No fever 11/17/2014 Eyes No vision change 11/17/2014 Respiratory No chest congestion 11/17/2014 Respiratory No chest tightness 11/17/2014 Respiratory No cough 11/17/2014 Gastrointestinal No constipation 11/17/2014 Gastrointestinal No diarrhea 11/17/2014 Gastrointestinal No vomiting 11/17/2014 Musculoskeletal No swelling 11/17/2014 Musculoskeletal No arthralgia(s) 11/17/2014 Neurologic No ataxia 11/17/2014 Neurologic No dizziness 11/17/2014 Neurologic No headache 11/17/2014 Psychiatric No anxiety 11/17/2014 Psychiatric No depression 11/17/2014 Constitutional No chills 05/19/2014 Constitutional No fever 05/19/2014 Eyes No vision change 05/19/2014 Respiratory No chest congestion 05/19/2014 Respiratory No chest tightness 05/19/2014 Respiratory No cough 05/19/2014 Gastrointestinal No constipation 05/19/2014 Gastrointestinal No diarrhea 05/19/2014 Gastrointestinal No vomiting 05/19/2014 Musculoskeletal No swelling 05/19/2014 Musculoskeletal No arthralgia(s) 05/19/2014 Neurologic No ataxia 05/19/2014 Neurologic No dizziness 05/19/2014 Neurologic No headache 05/19/2014 Psychiatric No anxiety 05/19/2014 Psychiatric No depression 05/19/2014 Constitutional No chills 11/04/2013 Constitutional No fever 11/04/2013 Eyes No vision change 11/04/2013 Respiratory No chest congestion 11/04/2013 Respiratory No chest tightness 11/04/2013 Respiratory No cough 11/04/2013 Gastrointestinal No constipation 11/04/2013 Gastrointestinal No diarrhea 11/04/2013 Gastrointestinal No vomiting 11/04/2013 Musculoskeletal No swelling 11/04/2013 Musculoskeletal No arthralgia(s) 11/04/2013 Neurologic No ataxia 11/04/2013 Neurologic No dizziness 11/04/2013 Neurologic No headache 11/04/2013 Psychiatric No anxiety 11/04/2013 Psychiatric No depression 11/04/2013 Constitutional No chills 08/05/2013 Constitutional No fever 08/05/2013 Eyes No vision change 08/05/2013 Respiratory No chest congestion 08/05/2013 Respiratory No chest tightness 08/05/2013 Respiratory No cough 08/05/2013 Gastrointestinal No constipation 08/05/2013 Gastrointestinal No diarrhea 08/05/2013 Gastrointestinal No vomiting 08/05/2013 Musculoskeletal No swelling 08/05/2013 Musculoskeletal No arthralgia(s) 08/05/2013 Neurologic No ataxia 08/05/2013 Neurologic No dizziness 08/05/2013 Neurologic No headache 08/05/2013 Psychiatric No anxiety 08/05/2013 Psychiatric No depression 08/05/2013 Constitutional No chills 05/22/2013 Constitutional No fever 05/22/2013 Eyes No vision change 05/22/2013 Respiratory No chest congestion 05/22/2013 Respiratory No chest tightness 05/22/2013 Respiratory No cough 05/22/2013 Gastrointestinal No constipation 05/22/2013 Gastrointestinal No diarrhea 05/22/2013 Gastrointestinal No vomiting 05/22/2013 Musculoskeletal No swelling 05/22/2013 Musculoskeletal No arthralgia(s) 05/22/2013 Neurologic No ataxia 05/22/2013 Neurologic No dizziness 05/22/2013 Neurologic No headache 05/22/2013 Psychiatric No anxiety 05/22/2013 Psychiatric No depression 05/22/2013 Constitutional No chills 02/20/2013 Constitutional No fever 02/20/2013 Eyes No vision change 02/20/2013 Respiratory No chest congestion 02/20/2013 Respiratory No chest tightness 02/20/2013 Respiratory No cough 02/20/2013 Gastrointestinal No constipation 02/20/2013 Gastrointestinal No diarrhea 02/20/2013 Gastrointestinal No vomiting 02/20/2013 Musculoskeletal No swelling 02/20/2013 Musculoskeletal No arthralgia(s) 02/20/2013 Neurologic No ataxia 02/20/2013 Neurologic No dizziness 02/20/2013 Neurologic No headache 02/20/2013 Psychiatric No anxiety 02/20/2013 Psychiatric No depression 02/20/2013 Ears/Nose/Throat/Neck No dizziness 02/20/2013 Ears/Nose/Throat/Neck No headache 02/20/2013 Constitutional No chills 10/25/2012 Constitutional No fever 10/25/2012 Eyes No vision change 10/25/2012 Respiratory No chest congestion 10/25/2012 Respiratory No chest tightness 10/25/2012 Respiratory No cough 10/25/2012 Gastrointestinal No constipation 10/25/2012 Gastrointestinal No diarrhea 10/25/2012 Gastrointestinal nausea 10/25/2012 Gastrointestinal No vomiting 10/25/2012 Musculoskeletal No swelling 10/25/2012 Musculoskeletal No arthralgia(s) 10/25/2012 Neurologic No ataxia 10/25/2012 Neurologic No dizziness 10/25/2012 Neurologic No headache 10/25/2012 Psychiatric No anxiety 10/25/2012 Psychiatric No depression 10/25/2012 Constitutional No chills 07/04/2012 Constitutional No fever 07/04/2012 Eyes No vision change 07/04/2012 Respiratory No chest congestion 07/04/2012 Respiratory No chest tightness 07/04/2012 Respiratory No cough 07/04/2012 Gastrointestinal No constipation 07/04/2012 Gastrointestinal No diarrhea 07/04/2012 Gastrointestinal nausea 07/04/2012 Gastrointestinal No vomiting 07/04/2012 Musculoskeletal No swelling 07/04/2012 Musculoskeletal No arthralgia(s) 07/04/2012 Neurologic No ataxia 07/04/2012 Neurologic No dizziness 07/04/2012 Neurologic No headache 07/04/2012 Psychiatric No anxiety 07/04/2012 Psychiatric No depression 07/04/2012 Constitutional No chills 12/26/2011 Constitutional No fever 12/26/2011 Eyes No vision change 12/26/2011 Cardiovascular No chest pain/pressure 12/26/2011 Cardiovascular hypertension 12/26/2011 Cardiovascular No palpitations 12/26/2011 Respiratory No chest congestion 12/26/2011 Respiratory No chest tightness 12/26/2011 Respiratory No cough 12/26/2011 Gastrointestinal No constipation 12/26/2011 Gastrointestinal No diarrhea 12/26/2011 Gastrointestinal nausea 12/26/2011 Gastrointestinal No vomiting 12/26/2011 Musculoskeletal No swelling 12/26/2011 Musculoskeletal No arthralgia(s) 12/26/2011 Neurologic No ataxia 12/26/2011 Neurologic No dizziness 12/26/2011 Neurologic No headache 12/26/2011 Psychiatric No anxiety 12/26/2011 Psychiatric No depression 12/26/2011 Constitutional No chills 10/26/2011 Constitutional No fever 10/26/2011 Eyes No vision change 10/26/2011 Cardiovascular No chest pain/pressure 10/26/2011 Cardiovascular hypertension 10/26/2011 Cardiovascular No palpitations 10/26/2011 Respiratory No chest congestion 10/26/2011 Respiratory No chest tightness 10/26/2011 Respiratory No cough 10/26/2011 Gastrointestinal No constipation 10/26/2011 Gastrointestinal No diarrhea 10/26/2011 Gastrointestinal nausea 10/26/2011 Gastrointestinal No vomiting 10/26/2011 Musculoskeletal No swelling 10/26/2011 Musculoskeletal No arthralgia(s) 10/26/2011 Neurologic No ataxia 10/26/2011 Neurologic No dizziness 10/26/2011 Neurologic No headache 10/26/2011 Psychiatric No anxiety 10/26/2011 Psychiatric No depression 10/26/2011 Constitutional No recent illness 09/15/2011 Constitutional No chills 09/15/2011 Constitutional No diaphoresis 09/15/2011 Constitutional No fatigue 09/15/2011 Constitutional No fever 09/15/2011 Constitutional No insomnia 09/15/2011 Eyes No eye discharge 09/15/2011 Eyes No eye erythema 09/15/2011 Ears/Nose/Throat/Neck dizziness 09/15/2011 Ears/Nose/Throat/Neck headache 09/15/2011 Ears/Nose/Throat/Neck No nasal allergies 09/15/2011 Ears/Nose/Throat/Neck No nasal discharge 09/15/2011 Ears/Nose/Throat/Neck No sinus congestion 09/15/2011 Ears/Nose/Throat/Neck No sore throat 09/15/2011 Ears/Nose/Throat/Neck No oral pain 09/15/2011 Cardiovascular No chest pain/pressure 09/15/2011 Respiratory No productive sputum 09/15/2011 Respiratory No chest congestion 09/15/2011 Respiratory No dyspnea on exertion 09/15/2011 Respiratory No dyspnea 09/15/2011 Gastrointestinal No abdominal pain 09/15/2011 Gastrointestinal No constipation 09/15/2011 Gastrointestinal No diarrhea 09/15/2011 Gastrointestinal nausea 09/15/2011 Gastrointestinal vomiting 09/15/2011 Genitourinary/Nephrology No dysuria 09/15/2011 Dermatologic rash 09/15/2011 Constitutional No chills 05/10/2011 Constitutional No fever 05/10/2011 Gastrointestinal No nausea 05/10/2011 Gastrointestinal No vomiting 05/10/2011 Cardiovascular chest pain/pressure 05/10/2011 Ears/Nose/Throat/Neck No dysphagia 05/10/2011 Ears/Nose/Throat/Neck No dental pain 05/10/2011 Ears/Nose/Throat/Neck oral lesion 05/10/2011 Ears/Nose/Throat/Neck oral pain 05/10/2011 Genitourinary/Nephrology No urinary urgency 05/10/2011 Genitourinary/Nephrology No urinary frequency 05/10/2011 Genitourinary/Nephrology No urinary incontinence 05/10/2011 Constitutional No fever 04/27/2011 Constitutional No chills 04/27/2011 Cardiovascular No chest pain/pressure 04/27/2011 Cardiovascular No palpitations 04/27/2011 Cardiovascular hypertension 04/27/2011 Gastrointestinal nausea 04/27/2011 Gastrointestinal No vomiting 04/27/2011 Gastrointestinal No constipation 04/27/2011 Gastrointestinal No diarrhea 04/27/2011 Eyes No vision change 04/27/2011 Respiratory No chest congestion 04/27/2011 Respiratory No chest tightness 04/27/2011 Respiratory No cough 04/27/2011 Musculoskeletal No swelling 04/27/2011 Musculoskeletal No arthralgia(s) 04/27/2011 Neurologic No ataxia 04/27/2011 Neurologic No dizziness 04/27/2011 Neurologic No headache 04/27/2011 Psychiatric No anxiety 04/27/2011 Psychiatric No depression 04/27/2011 Physical Exam Exam Name System Name Item Name Status Result Effective Dates Notes Full Exam - General 1994 Constitutional general appearance Overall: well developed 12/12/2018 None Full Exam - General 1994 Constitutional general appearance Overall: in no acute distress 12/12/2018 None Full Exam - General 1994 Constitutional general appearance Overall: well nourished 12/12/2018 None Full Exam - General 1994 Eyes conjunctiva/eyelids Overall: conjunctiva clear 12/12/2018 None Full Exam - General 1994 Eyes conjunctiva/eyelids Overall: cornea clear 12/12/2018 None Full Exam - General 1994 Eyes conjunctiva/eyelids Overall: eyelids normal 12/12/2018 None Full Exam - General 1994 Ears/Nose/Throat lips/teeth/gingiva Overall: benign lips 12/12/2018 None Full Exam - General 1994 Ears/Nose/Throat oral cavity/pharynx/larynx Overall: oral mucosa clear 12/12/2018 None Full Exam - General 1994 Respiratory respiratory effort/rhythm Overall: no retractions 12/12/2018 None Full Exam - General 1994 Respiratory respiratory effort/rhythm Overall: normal rate 12/12/2018 None Full Exam - General 1994 Musculoskeletal upper extremity Inspection - shoulder: swelling 12/12/2018 clavical, neck area Full Exam - General 1994 Musculoskeletal gait and station Overall: normal gait 12/12/2018 None Full Exam - General 1994 Musculoskeletal gait and station Overall: normal station 12/12/2018 None Full Exam - General 1994 Musculoskeletal head and neck Overall: head atraumatic 12/12/2018 None Full Exam - General 1994 Musculoskeletal head and neck Cervical Spine: swelling 12/12/2018 right Full Exam - General 1994 Neurologic cranial nerves Overall: crainial nerves 2 - 12 grossly intact 12/12/2018 None Full Exam - General 1994 Psychiatric orientation/consciousness Overall: oriented to person, place and time 12/12/2018 None Full Exam - General 1994 Psychiatric mood and affect Overall: normal mood and affect 12/12/2018 None Full Exam - General 1994 Psychiatric appearance Overall: well-groomed, good eye contact 12/12/2018 None Full Exam - General 1994 Constitutional general appearance Overall: well developed 12/06/2018 None Full Exam - General 1994 Constitutional general appearance Overall: in no acute distress 12/06/2018 None Full Exam - General 1994 Constitutional general appearance Overall: well nourished 12/06/2018 None Full Exam - General 1994 Eyes conjunctiva/eyelids Overall: eyelids normal 12/06/2018 None Full Exam - General 1994 Eyes conjunctiva/eyelids Overall: cornea clear 12/06/2018 None Full Exam - General 1994 Eyes conjunctiva/eyelids Overall: conjunctiva clear 12/06/2018 None Full Exam - General 1994 Ears/Nose/Throat lips/teeth/gingiva Overall: benign lips 12/06/2018 None Full Exam - General 1994 Ears/Nose/Throat oral cavity/pharynx/larynx Overall: oral mucosa clear 12/06/2018 None Full Exam - General 1994 Respiratory respiratory effort/rhythm Overall: no retractions 12/06/2018 None Full Exam - General 1994 Respiratory respiratory effort/rhythm Overall: normal rate 12/06/2018 None Full Exam - General 1994 Musculoskeletal head and neck Overall: head atraumatic 12/06/2018 None Full Exam - General 1994 Musculoskeletal head and neck Cervical Spine: swelling 12/06/2018 right Full Exam - General 1994 Musculoskeletal gait and station Overall: normal station 12/06/2018 None Full Exam - General 1994 Musculoskeletal gait and station Overall: normal gait 12/06/2018 None Full Exam - General 1994 Musculoskeletal upper extremity Inspection - shoulder: swelling 12/06/2018 clavical, neck area Full Exam - General 1994 Neurologic cranial nerves Overall: crainial nerves 2 - 12 grossly intact 12/06/2018 None Full Exam - General 1994 Psychiatric orientation/consciousness Overall: oriented to person, place and time 12/06/2018 None Full Exam - General 1994 Psychiatric mood and affect Overall: normal mood and affect 12/06/2018 None Full Exam - General 1994 Psychiatric appearance Overall: well-groomed, good eye contact 12/06/2018 None Full Exam - General 1994 Constitutional general appearance Overall: well developed 06/14/2018 None Full Exam - General 1994 Constitutional general appearance Overall: well nourished 06/14/2018 None Full Exam - General 1994 Eyes conjunctiva/eyelids Overall: conjunctiva clear 06/14/2018 None Full Exam - General 1994 Eyes conjunctiva/eyelids Overall: eyelids normal 06/14/2018 None Full Exam - General 1994 Ears/Nose/Throat lips/teeth/gingiva Overall: benign lips 06/14/2018 None Full Exam - General 1994 Ears/Nose/Throat oral cavity/pharynx/larynx Overall: oral mucosa clear 06/14/2018 None Full Exam - General 1994 Respiratory respiratory effort/rhythm Overall: no retractions 06/14/2018 None Full Exam - General 1994 Respiratory respiratory effort/rhythm Overall: normal rate 06/14/2018 None Full Exam - General 1994 Cardiovascular extremities Overall: no clubbing 06/14/2018 None Full Exam - General 1994 Musculoskeletal spine, ribs and pelvis Overall: good posture 06/14/2018 None Full Exam - General 1994 Musculoskeletal head and neck Overall: head atraumatic 06/14/2018 None Full Exam - General 1994 Neurologic gait Overall: no ataxia, no unsteadiness 06/14/2018 None Full Exam - General 1994 Psychiatric orientation/consciousness Overall: oriented to person, place and time 06/14/2018 None Full Exam - General 1994 Psychiatric mood and affect Overall: normal mood and affect 06/14/2018 None Full Exam - General 1994 Psychiatric appearance Overall: well-groomed, good eye contact 06/14/2018 None Full Exam - General 1994 Musculoskeletal lower extremity Palpation - knee: crepitus 06/14/2018 None Full Exam - General 1994 Constitutional general appearance Overall: well developed 09/19/2017 None Full Exam - General 1994 Constitutional general appearance Overall: well nourished 09/19/2017 None Full Exam - General 1994 Ears/Nose/Throat lips/teeth/gingiva Overall: benign lips 09/19/2017 None Full Exam - General 1994 Ears/Nose/Throat lips/teeth/gingiva Overall: normal dentition 09/19/2017 None Full Exam - General 1994 Respiratory auscultation Overall: breath sounds clear bilaterally 09/19/2017 None Full Exam - General 1994 Respiratory respiratory effort/rhythm Overall: no retractions 09/19/2017 None Full Exam - General 1995 Respiratory respiratory effort/rhythm Overall: normal rate 09/19/2017 None Full Exam - General 1995 Cardiovascular extremities Overall: no clubbing 09/19/2017 None Full Exam - General 1994 Cardiovascular auscultation of heart Overall: regular rate 09/19/2017 None Full Exam - General 1994 Cardiovascular auscultation of heart Overall: normal heart sounds 09/19/2017 None Full Exam - General 1994 Cardiovascular auscultation of heart Overall: no murmurs 09/19/2017 None Full Exam - General 1994 Musculoskeletal spine, ribs and pelvis Overall: good posture 09/19/2017 None Full Exam - General 1994 Musculoskeletal spine, ribs and pelvis Spine: tender @ lumbar spine 09/19/2017 None Full Exam - General 1994 Musculoskeletal head and neck Overall: head atraumatic 09/19/2017 None Full Exam - General 1994 Neurologic gait Overall: no ataxia, no unsteadiness 09/19/2017 None Full Exam - General 1994 Psychiatric orientation/consciousness Overall: oriented to person, place and time 09/19/2017 None Full Exam - General 1994 Psychiatric mood and affect Overall: normal mood and affect 09/19/2017 None Full Exam - General 1994 Psychiatric appearance Overall: well-groomed, good eye contact 09/19/2017 None Full Exam - General 1994 Eyes conjunctiva/eyelids Overall: conjunctiva clear 09/19/2017 None Full Exam - General 1994 Eyes conjunctiva/eyelids Overall: cornea clear 09/19/2017 None Full Exam - General 1994 Eyes conjunctiva/eyelids Overall: eyelids normal 09/19/2017 None Full Exam - General 1994 Neurologic cranial nerves Overall: crainial nerves 2 - 12 grossly intact 09/19/2017 None Full Exam - General 1994 Constitutional general appearance Overall: well developed 07/21/2017 None Full Exam - General 1994 Constitutional general appearance Overall: well nourished 07/21/2017 None Full Exam - General 1994 Eyes conjunctiva/eyelids Overall: conjunctiva clear 07/21/2017 None Full Exam - General 1994 Eyes conjunctiva/eyelids Overall: eyelids normal 07/21/2017 None Full Exam - General 1994 Ears/Nose/Throat lips/teeth/gingiva Overall: benign lips 07/21/2017 None Full Exam - General 1994 Ears/Nose/Throat oral cavity/pharynx/larynx Overall: oral mucosa clear 07/21/2017 None Full Exam - General 1994 Respiratory respiratory effort/rhythm Overall: no retractions 07/21/2017 None Full Exam - General 1994 Respiratory respiratory effort/rhythm Overall: normal rate 07/21/2017 None Full Exam - General 1994 Cardiovascular extremities Overall: no clubbing 07/21/2017 None Full Exam - General 1994 Musculoskeletal spine, ribs and pelvis Overall: good posture 07/21/2017 None Full Exam - General 1994 Musculoskeletal head and neck Overall: head atraumatic 07/21/2017 None Full Exam - General 1994 Neurologic gait Overall: no ataxia, no unsteadiness 07/21/2017 None Full Exam - General 1994 Psychiatric orientation/consciousness Overall: oriented to person, place and time 07/21/2017 None Full Exam - General 1994 Psychiatric mood and affect Overall: normal mood and affect 07/21/2017 None Full Exam - General 1994 Psychiatric appearance Overall: well-groomed, good eye contact 07/21/2017 None Full Exam - General 1994 Abdomen abdominal exam Contour: rounded 07/21/2017 None Full Exam - General 1994 Abdomen abdominal exam Overall: normal bowel sounds 07/21/2017 None Full Exam - General 1994 Abdomen abdominal exam Epigastric: tender to palpation 07/21/2017 None Full Exam - General 1994 Constitutional general appearance Overall: well developed 02/06/2017 None Full Exam - General 1994 Constitutional general appearance Overall: well nourished 02/06/2017 None Full Exam - General 1994 Ears/Nose/Throat lips/teeth/gingiva Overall: benign lips 02/06/2017 None Full Exam - General 1994 Respiratory respiratory effort/rhythm Overall: no retractions 02/06/2017 None Full Exam - General 1994 Respiratory respiratory effort/rhythm Overall: normal rate 02/06/2017 None Full Exam - General 1994 Cardiovascular extremities Overall: no clubbing 02/06/2017 None Full Exam - General 1994 Musculoskeletal spine, ribs and pelvis Overall: good posture 02/06/2017 None Full Exam - General 1994 Musculoskeletal head and neck Overall: head atraumatic 02/06/2017 None Full Exam - General 1994 Neurologic gait Overall: no ataxia, no unsteadiness 02/06/2017 None Full Exam - General 1994 Psychiatric orientation/consciousness Overall: oriented to person, place and time 02/06/2017 None Full Exam - General 1994 Psychiatric mood and affect Overall: normal mood and affect 02/06/2017 None Full Exam - General 1994 Psychiatric appearance Overall: well-groomed, good eye contact 02/06/2017 None Full Exam - General 1994 Eyes conjunctiva/eyelids Overall: conjunctiva clear 02/06/2017 None Full Exam - General 1994 Eyes conjunctiva/eyelids Overall: eyelids normal 02/06/2017 None Full Exam - General 1994 Ears/Nose/Throat oral cavity/pharynx/larynx Overall: oral mucosa clear 02/06/2017 None Full Exam - General 1994 Constitutional general appearance Overall: well developed 02/03/2017 None Full Exam - General 1994 Constitutional general appearance Overall: well nourished 02/03/2017 None Full Exam - General 1994 Eyes pupils and irises Overall: pupils equal, round, reactive to light and accomodation 02/03/2017 None Full Exam - General 1994 Ears/Nose/Throat lips/teeth/gingiva Overall: benign lips 02/03/2017 None Full Exam - General 1994 Ears/Nose/Throat lips/teeth/gingiva Overall: normal dentition 02/03/2017 None Full Exam - General 1994 Respiratory auscultation Overall: breath sounds clear bilaterally 02/03/2017 None Full Exam - General 1994 Respiratory respiratory effort/rhythm Overall: no retractions 02/03/2017 None Full Exam - General 1994 Respiratory respiratory effort/rhythm Overall: normal rate 02/03/2017 None Full Exam - General 1994 Cardiovascular extremities Overall: no clubbing 02/03/2017 None Full Exam - General 1994 Cardiovascular auscultation of heart Overall: regular rate 02/03/2017 None Full Exam - General 1994 Cardiovascular auscultation of heart Overall: normal heart sounds 02/03/2017 None Full Exam - General 1994 Cardiovascular auscultation of heart Overall: no murmurs 02/03/2017 None Full Exam - General 1994 Abdomen abdominal exam Overall: no tenderness 02/03/2017 None Full Exam - General 1994 Abdomen abdominal exam Overall: normal bowel sounds 02/03/2017 None Full Exam - General 1994 Musculoskeletal spine, ribs and pelvis Overall: good posture 02/03/2017 None Full Exam - General 1994 Musculoskeletal spine, ribs and pelvis Spine: tender @ lumbar spine 02/03/2017 None Full Exam - General 1994 Musculoskeletal head and neck Overall: head atraumatic 02/03/2017 None Full Exam - General 1994 Musculoskeletal head and neck Overall: cervical spine benign 02/03/2017 None Full Exam - General 1994 Neurologic gait Overall: no ataxia, no unsteadiness 02/03/2017 None Full Exam - General 1994 Psychiatric orientation/consciousness Overall: oriented to person, place and time 02/03/2017 None Full Exam - General 1994 Psychiatric mood and affect Overall: normal mood and affect 02/03/2017 None Full Exam - General 1994 Psychiatric appearance Overall: well-groomed, good eye contact 02/03/2017 None Full Exam - General 1994 Constitutional general appearance Overall: well developed 10/17/2016 None Full Exam - General 1994 Eyes pupils and irises Overall: pupils equal, round, reactive to light and accomodation 10/17/2016 None Full Exam - General 1994 Ears/Nose/Throat otoscopic exam Overall: external auditory canals clear 10/17/2016 None Full Exam - General 1994 Ears/Nose/Throat otoscopic exam Overall: tympanic membranes clear 10/17/2016 None Full Exam - General 1994 Ears/Nose/Throat lips/teeth/gingiva Overall: benign lips 10/17/2016 None Full Exam - General 1995 Ears/Nose/Throat lips/teeth/gingiva Overall: normal dentition 10/17/2016 None Full Exam - General 1994 Ears/Nose/Throat lips/teeth/gingiva Overall: benign gingiva 10/17/2016 None Full Exam - General 1995 Ears/Nose/Throat lips/teeth/gingiva Overall: no masses 10/17/2016 None Full Exam - General 1994 Ears/Nose/Throat oral cavity/pharynx/larynx Overall: hypopharynx benign 10/17/2016 None Full Exam - General 1994 Neck inspection of neck Overall: normal size 10/17/2016 None Full Exam - General 1994 Neck inspection of neck Overall: no masses 10/17/2016 None Full Exam - General 1994 Respiratory auscultation Overall: breath sounds clear bilaterally 10/17/2016 None Full Exam - General 1994 Respiratory respiratory effort/rhythm Overall: no retractions 10/17/2016 None Full Exam - General 1994 Respiratory respiratory effort/rhythm Overall: normal rate 10/17/2016 None Full Exam - General 1994 Cardiovascular extremities Overall: no clubbing 10/17/2016 None Full Exam - General 1994 Cardiovascular auscultation of heart Overall: regular rate 10/17/2016 None Full Exam - General 1994 Cardiovascular auscultation of heart Overall: normal heart sounds 10/17/2016 None Full Exam - General 1994 Cardiovascular auscultation of heart Overall: no murmurs 10/17/2016 None Full Exam - General 1994 Abdomen abdominal exam Overall: no tenderness 10/17/2016 None Full Exam - General 1994 Abdomen abdominal exam Overall: normal bowel sounds 10/17/2016 None Full Exam - General 1994 Musculoskeletal spine, ribs and pelvis Overall: good posture 10/17/2016 None Full Exam - General 1994 Musculoskeletal head and neck Overall: head atraumatic 10/17/2016 None Full Exam - General 1994 Musculoskeletal head and neck Overall: cervical spine benign 10/17/2016 None Full Exam - General 1994 Neurologic gait Overall: no ataxia, no unsteadiness 10/17/2016 None Full Exam - General 1994 Psychiatric orientation/consciousness Overall: oriented to person, place and time 10/17/2016 None Full Exam - General 1994 Psychiatric mood and affect Overall: normal mood and affect 10/17/2016 None Full Exam - General 1994 Psychiatric appearance Overall: well-groomed, good eye contact 10/17/2016 None Full Exam - General 1994 Genitourinary uterus Overall: normal size 10/17/2016 None Full Exam - General 1994 Genitourinary cervix Overall: no discharge 10/17/2016 None Full Exam - General 1994 Genitourinary labia and vagina Overall: no lesions 10/17/2016 None Full Exam - General 1994 Genitourinary labia and vagina Overall: normal hair distribution 10/17/2016 None Full Exam - General 1994 Genitourinary cervix Inspection: normal os 10/17/2016 None Full Exam - General 1994 Genitourinary adnexa/parametria Overall: no tenderness 10/17/2016 None Full Exam - General 1994 Genitourinary urethra Overall: no masses 10/17/2016 None Full Exam - General 1994 Genitourinary bladder Overall: no tenderness 10/17/2016 None Full Exam - General 1994 Integument inspection of skin Overall: few scattered moles, no gross abnormalities 10/17/2016 None Full Exam - General 1994 Lymphatic neck nodes Overall: anterior cervical chain benign 10/17/2016 None Full Exam - General 1994 Lymphatic neck nodes Overall: posterior cervical chain benign 10/17/2016 None Full Exam - General 1994 Chest/Breast breast and axillae palpation Overall: breasts non- tender 10/17/2016 None Full Exam - General 1994 Chest/Breast breast and axillae palpation Overall: axillae non- tender 10/17/2016 None Full Exam - General 1994 Chest/Breast breast and axillae palpation Overall: no nipple discharge 10/17/2016 None Full Exam - General 1994 Constitutional general appearance Overall: well developed 07/14/2015 None Full Exam - General 1994 Eyes pupils and irises Overall: pupils equal, round, reactive to light and accomodation 07/14/2015 None Full Exam - General 1994 Ears/Nose/Throat lips/teeth/gingiva Overall: benign lips 07/14/2015 None Full Exam - General 1994 Ears/Nose/Throat lips/teeth/gingiva Overall: normal dentition 07/14/2015 None Full Exam - General 1994 Respiratory auscultation Overall: breath sounds clear bilaterally 07/14/2015 None Full Exam - General 1994 Respiratory respiratory effort/rhythm Overall: no retractions 07/14/2015 None Full Exam - General 1994 Respiratory respiratory effort/rhythm Overall: normal rate 07/14/2015 None Full Exam - General 1994 Cardiovascular extremities Overall: no clubbing 07/14/2015 None Full Exam - General 1994 Cardiovascular auscultation of heart Overall: regular rate 07/14/2015 None Full Exam - General 1994 Cardiovascular auscultation of heart Overall: normal heart sounds 07/14/2015 None Full Exam - General 1994 Cardiovascular auscultation of heart Overall: no murmurs 07/14/2015 None Full Exam - General 1994 Abdomen abdominal exam Overall: no tenderness 07/14/2015 None Full Exam - General 1994 Abdomen abdominal exam Overall: normal bowel sounds 07/14/2015 None Full Exam - General 1994 Musculoskeletal spine, ribs and pelvis Overall: good posture 07/14/2015 None Full Exam - General 1994 Musculoskeletal head and neck Overall: head atraumatic 07/14/2015 None Full Exam - General 1994 Musculoskeletal head and neck Overall: cervical spine benign 07/14/2015 None Full Exam - General 1994 Neurologic gait Overall: no ataxia, no unsteadiness 07/14/2015 None Full Exam - General 1994 Psychiatric orientation/consciousness Overall: oriented to person, place and time 07/14/2015 None Full Exam - General 1994 Psychiatric mood and affect Overall: normal mood and affect 07/14/2015 None Full Exam - General 1994 Psychiatric appearance Overall: well-groomed, good eye contact 07/14/2015 None Full Exam - General 1994 Constitutional general appearance Overall: well nourished 07/14/2015 None Full Exam - General 1994 Musculoskeletal spine, ribs and pelvis Sacroiliac joints: tender right sacroiliac joint 07/14/2015 None Full Exam - General 1994 Musculoskeletal spine, ribs and pelvis Sacroiliac joints: tender left sacroiliac joint 07/14/2015 None Full Exam - General 1994 Musculoskeletal spine, ribs and pelvis Spine: tender @ lumbar spine 07/14/2015 None Full Exam - General 1994 Constitutional general appearance Overall: well developed 11/17/2014 None Full Exam - General 1994 Eyes pupils and irises Overall: pupils equal, round, reactive to light and accomodation 11/17/2014 None Full Exam - General 1994 Ears/Nose/Throat otoscopic exam Overall: external auditory canals clear 11/17/2014 None Full Exam - General 1994 Ears/Nose/Throat otoscopic exam Overall: tympanic membranes clear 11/17/2014 None Full Exam - General 1994 Ears/Nose/Throat lips/teeth/gingiva Overall: benign lips 11/17/2014 None Full Exam - General 1994 Ears/Nose/Throat lips/teeth/gingiva Overall: normal dentition 11/17/2014 None Full Exam - General 1994 Ears/Nose/Throat lips/teeth/gingiva Overall: benign gingiva 11/17/2014 None Full Exam - General 1994 Ears/Nose/Throat lips/teeth/gingiva Overall: no masses 11/17/2014 None Full Exam - General 1994 Ears/Nose/Throat oral cavity/pharynx/larynx Overall: hypopharynx benign 11/17/2014 None Full Exam - General 1994 Ears/Nose/Throat oral cavity/pharynx/larynx Hard palate: ulcer 11/17/2014 right of midline, in posterior aspect of the hard palate Full Exam - General 1994 Neck inspection of neck Overall: normal size 11/17/2014 None Full Exam - General 1994 Neck inspection of neck Overall: no masses 11/17/2014 None Full Exam - General 1994 Respiratory auscultation Overall: breath sounds clear bilaterally 11/17/2014 None Full Exam - General 1994 Respiratory respiratory effort/rhythm Overall: no retractions 11/17/2014 None Full Exam - General 1994 Respiratory respiratory effort/rhythm Overall: normal rate 11/17/2014 None Full Exam - General 1994 Cardiovascular extremities Overall: no clubbing 11/17/2014 None Full Exam - General 1994 Cardiovascular auscultation of heart Overall: regular rate 11/17/2014 None Full Exam - General 1994 Cardiovascular auscultation of heart Overall: normal heart sounds 11/17/2014 None Full Exam - General 1994 Cardiovascular auscultation of heart Overall: no murmurs 11/17/2014 None Full Exam - General 1994 Abdomen abdominal exam Overall: no tenderness 11/17/2014 None Full Exam - General 1994 Abdomen abdominal exam Overall: normal bowel sounds 11/17/2014 None Full Exam - General 1994 Musculoskeletal spine, ribs and pelvis Overall: good posture 11/17/2014 None Full Exam - General 1994 Musculoskeletal head and neck Overall: head atraumatic 11/17/2014 None Full Exam - General 1994 Musculoskeletal head and neck Overall: cervical spine benign 11/17/2014 None Full Exam - General 1994 Neurologic gait Overall: no ataxia, no unsteadiness 11/17/2014 None Full Exam - General 1994 Psychiatric orientation/consciousness Overall: oriented to person, place and time 11/17/2014 None Full Exam - General 1994 Psychiatric mood and affect Overall: normal mood and affect 11/17/2014 None Full Exam - General 1994 Psychiatric appearance Overall: well-groomed, good eye contact 11/17/2014 None Full Exam - General 1994 Constitutional general appearance Overall: well developed 05/19/2014 None Full Exam - General 1994 Eyes pupils and irises Overall: pupils equal, round, reactive to light and accomodation 05/19/2014 None Full Exam - General 1994 Ears/Nose/Throat otoscopic exam Overall: external auditory canals clear 05/19/2014 None Full Exam - General 1994 Ears/Nose/Throat otoscopic exam Overall: tympanic membranes clear 05/19/2014 None Full Exam - General 1994 Ears/Nose/Throat lips/teeth/gingiva Overall: benign lips 05/19/2014 None Full Exam - General 1994 Ears/Nose/Throat lips/teeth/gingiva Overall: normal dentition 05/19/2014 None Full Exam - General 1994 Ears/Nose/Throat lips/teeth/gingiva Overall: benign gingiva 05/19/2014 None Full Exam - General 1994 Ears/Nose/Throat lips/teeth/gingiva Overall: no masses 05/19/2014 None Full Exam - General 1994 Ears/Nose/Throat oral cavity/pharynx/larynx Overall: hypopharynx benign 05/19/2014 None Full Exam - General 1995 Ears/Nose/Throat oral cavity/pharynx/larynx Hard palate: ulcer 05/19/2014 right of midline, in posterior aspect of the hard palate Full Exam - General 1994 Neck inspection of neck Overall: normal size 05/19/2014 None Full Exam - General 1994 Neck inspection of neck Overall: no masses 05/19/2014 None Full Exam - General 1994 Respiratory auscultation Overall: breath sounds clear bilaterally 05/19/2014 None Full Exam - General 1994 Respiratory respiratory effort/rhythm Overall: no retractions 05/19/2014 None Full Exam - General 1994 Respiratory respiratory effort/rhythm Overall: normal rate 05/19/2014 None Full Exam - General 1994 Cardiovascular extremities Overall: no clubbing 05/19/2014 None Full Exam - General 1994 Cardiovascular auscultation of heart Overall: regular rate 05/19/2014 None Full Exam - General 1994 Cardiovascular auscultation of heart Overall: normal heart sounds 05/19/2014 None Full Exam - General 1994 Cardiovascular auscultation of heart Overall: no murmurs 05/19/2014 None Full Exam - General 1994 Abdomen abdominal exam Overall: no tenderness 05/19/2014 None Full Exam - General 1994 Abdomen abdominal exam Overall: normal bowel sounds 05/19/2014 None Full Exam - General 1994 Musculoskeletal spine, ribs and pelvis Overall: good posture 05/19/2014 None Full Exam - General 1994 Musculoskeletal head and neck Overall: head atraumatic 05/19/2014 None Full Exam - General 1994 Musculoskeletal head and neck Overall: cervical spine benign 05/19/2014 None Full Exam - General 1994 Neurologic gait Overall: no ataxia, no unsteadiness 05/19/2014 None Full Exam - General 1994 Psychiatric orientation/consciousness Overall: oriented to person, place and time 05/19/2014 None Full Exam - General 1994 Psychiatric mood and affect Overall: normal mood and affect 05/19/2014 None Full Exam - General 1994 Psychiatric appearance Overall: well-groomed, good eye contact 05/19/2014 None Full Exam - General 1994 Constitutional general appearance Overall: well developed 11/04/2013 None Full Exam - General 1994 Eyes pupils and irises Overall: pupils equal, round, reactive to light and accomodation 11/04/2013 None Full Exam - General 1994 Ears/Nose/Throat otoscopic exam Overall: external auditory canals clear 11/04/2013 None Full Exam - General 1994 Ears/Nose/Throat otoscopic exam Overall: tympanic membranes clear 11/04/2013 None Full Exam - General 1994 Ears/Nose/Throat lips/teeth/gingiva Overall: benign lips 11/04/2013 None Full Exam - General 1994 Ears/Nose/Throat lips/teeth/gingiva Overall: normal dentition 11/04/2013 None Full Exam - General 1994 Ears/Nose/Throat lips/teeth/gingiva Overall: benign gingiva 11/04/2013 None Full Exam - General 1994 Ears/Nose/Throat lips/teeth/gingiva Overall: no masses 11/04/2013 None Full Exam - General 1994 Ears/Nose/Throat oral cavity/pharynx/larynx Overall: hypopharynx benign 11/04/2013 None Full Exam - General 1994 Ears/Nose/Throat oral cavity/pharynx/larynx Hard palate: ulcer 11/04/2013 right of midline, in posterior aspect of the hard palate Full Exam - General 1994 Neck inspection of neck Overall: normal size 11/04/2013 None Full Exam - General 1994 Neck inspection of neck Overall: no masses 11/04/2013 None Full Exam - General 1994 Respiratory auscultation Overall: breath sounds clear bilaterally 11/04/2013 None Full Exam - General 1994 Respiratory respiratory effort/rhythm Overall: no retractions 11/04/2013 None Full Exam - General 1994 Respiratory respiratory effort/rhythm Overall: normal rate 11/04/2013 None Full Exam - General 1994 Cardiovascular extremities Overall: no clubbing 11/04/2013 None Full Exam - General 1994 Cardiovascular auscultation of heart Overall: regular rate 11/04/2013 None Full Exam - General 1994 Cardiovascular auscultation of heart Overall: normal heart sounds 11/04/2013 None Full Exam - General 1994 Cardiovascular auscultation of heart Overall: no murmurs 11/04/2013 None Full Exam - General 1994 Abdomen abdominal exam Overall: no tenderness 11/04/2013 None Full Exam - General 1994 Abdomen abdominal exam Overall: normal bowel sounds 11/04/2013 None Full Exam - General 1994 Musculoskeletal spine, ribs and pelvis Overall: good posture 11/04/2013 None Full Exam - General 1994 Musculoskeletal head and neck Overall: head atraumatic 11/04/2013 None Full Exam - General 1994 Musculoskeletal head and neck Overall: cervical spine benign 11/04/2013 None Full Exam - General 1994 Neurologic gait Overall: no ataxia, no unsteadiness 11/04/2013 None Full Exam - General 1994 Psychiatric orientation/consciousness Overall: oriented to person, place and time 11/04/2013 None Full Exam - General 1994 Psychiatric mood and affect Overall: normal mood and affect 11/04/2013 None Full Exam - General 1994 Psychiatric appearance Overall: well-groomed, good eye contact 11/04/2013 None Full Exam - General 1994 Constitutional general appearance Overall: well developed 08/05/2013 None Full Exam - General 1994 Eyes pupils and irises Overall: pupils equal, round, reactive to light and accomodation 08/05/2013 None Full Exam - General 1994 Ears/Nose/Throat otoscopic exam Overall: external auditory canals clear 08/05/2013 None Full Exam - General 1994 Ears/Nose/Throat otoscopic exam Overall: tympanic membranes clear 08/05/2013 None Full Exam - General 1994 Ears/Nose/Throat lips/teeth/gingiva Overall: benign lips 08/05/2013 None Full Exam - General 1994 Ears/Nose/Throat lips/teeth/gingiva Overall: normal dentition 08/05/2013 None Full Exam - General 1994 Ears/Nose/Throat lips/teeth/gingiva Overall: benign gingiva 08/05/2013 None Full Exam - General 1994 Ears/Nose/Throat lips/teeth/gingiva Overall: no masses 08/05/2013 None Full Exam - General 1994 Ears/Nose/Throat oral cavity/pharynx/larynx Overall: hypopharynx benign 08/05/2013 None Full Exam - General 1994 Ears/Nose/Throat oral cavity/pharynx/larynx Hard palate: ulcer 08/05/2013 right of midline, in posterior aspect of the hard palate Full Exam - General 1994 Neck inspection of neck Overall: normal size 08/05/2013 None Full Exam - General 1994 Neck inspection of neck Overall: no masses 08/05/2013 None Full Exam - General 1994 Respiratory auscultation Overall: breath sounds clear bilaterally 08/05/2013 None Full Exam - General 1994 Respiratory respiratory effort/rhythm Overall: no retractions 08/05/2013 None Full Exam - General 1994 Respiratory respiratory effort/rhythm Overall: normal rate 08/05/2013 None Full Exam - General 1994 Cardiovascular extremities Overall: no clubbing 08/05/2013 None Full Exam - General 1994 Cardiovascular auscultation of heart Overall: regular rate 08/05/2013 None Full Exam - General 1994 Cardiovascular auscultation of heart Overall: normal heart sounds 08/05/2013 None Full Exam - General 1994 Cardiovascular auscultation of heart Overall: no murmurs 08/05/2013 None Full Exam - General 1994 Abdomen abdominal exam Overall: no tenderness 08/05/2013 None Full Exam - General 1994 Abdomen abdominal exam Overall: normal bowel sounds 08/05/2013 None Full Exam - General 1994 Musculoskeletal spine, ribs and pelvis Overall: good posture 08/05/2013 None Full Exam - General 1994 Musculoskeletal head and neck Overall: head atraumatic 08/05/2013 None Full Exam - General 1994 Musculoskeletal head and neck Overall: cervical spine benign 08/05/2013 None Full Exam - General 1994 Neurologic gait Overall: no ataxia, no unsteadiness 08/05/2013 None Full Exam - General 1994 Psychiatric orientation/consciousness Overall: oriented to person, place and time 08/05/2013 None Full Exam - General 1994 Psychiatric mood and affect Overall: normal mood and affect 08/05/2013 None Full Exam - General 1994 Psychiatric appearance Overall: well-groomed, good eye contact 08/05/2013 None Full Exam - General 1994 Constitutional general appearance Overall: well developed 05/22/2013 None Full Exam - General 1994 Eyes pupils and irises Overall: pupils equal, round, reactive to light and accomodation 05/22/2013 None Full Exam - General 1994 Ears/Nose/Throat otoscopic exam Overall: external auditory canals clear 05/22/2013 None Full Exam - General 1995 Ears/Nose/Throat otoscopic exam Overall: tympanic membranes clear 05/22/2013 None Full Exam - General 1995 Ears/Nose/Throat lips/teeth/gingiva Overall: benign lips 05/22/2013 None Full Exam - General 1995 Ears/Nose/Throat lips/teeth/gingiva Overall: normal dentition 05/22/2013 None Full Exam - General 1995 Ears/Nose/Throat lips/teeth/gingiva Overall: benign gingiva 05/22/2013 None Full Exam - General 1995 Ears/Nose/Throat lips/teeth/gingiva Overall: no masses 05/22/2013 None Full Exam - General 1995 Ears/Nose/Throat oral cavity/pharynx/larynx Overall: hypopharynx benign 05/22/2013 None Full Exam - General 1995 Ears/Nose/Throat oral cavity/pharynx/larynx Hard palate: ulcer 05/22/2013 right of midline, in posterior aspect of the hard palate Full Exam - General 1994 Neck inspection of neck Overall: normal size 05/22/2013 None Full Exam - General 1995 Neck inspection of neck Overall: no masses 05/22/2013 None Full Exam - General 1995 Respiratory auscultation Overall: breath sounds clear bilaterally 05/22/2013 None Full Exam - General 1995 Respiratory respiratory effort/rhythm Overall: no retractions 05/22/2013 None Full Exam - General 1995 Respiratory respiratory effort/rhythm Overall: normal rate 05/22/2013 None Full Exam - General 1995 Cardiovascular extremities Overall: no clubbing 05/22/2013 None Full Exam - General 1995 Cardiovascular auscultation of heart Overall: regular rate 05/22/2013 None Full Exam - General 1995 Cardiovascular auscultation of heart Overall: normal heart sounds 05/22/2013 None Full Exam - General 1994 Cardiovascular auscultation of heart Overall: no murmurs 05/22/2013 None Full Exam - General 1994 Abdomen abdominal exam Overall: no tenderness 05/22/2013 None Full Exam - General 1995 Abdomen abdominal exam Overall: normal bowel sounds 05/22/2013 None Full Exam - General 1994 Musculoskeletal spine, ribs and pelvis Overall: good posture 05/22/2013 None Full Exam - General 1994 Musculoskeletal head and neck Overall: head atraumatic 05/22/2013 None Full Exam - General 1994 Musculoskeletal head and neck Overall: cervical spine benign 05/22/2013 None Full Exam - General 1994 Neurologic gait Overall: no ataxia, no unsteadiness 05/22/2013 None Full Exam - General 1994 Psychiatric orientation/consciousness Overall: oriented to person, place and time 05/22/2013 None Full Exam - General 1994 Psychiatric mood and affect Overall: normal mood and affect 05/22/2013 None Full Exam - General 1994 Psychiatric appearance Overall: well-groomed, good eye contact 05/22/2013 None Full Exam - General 1994 Constitutional general appearance Overall: well nourished 02/20/2013 None Full Exam - General 1994 Constitutional general appearance Overall: well developed 02/20/2013 None Full Exam - General 1994 Constitutional general appearance Overall: in no acute distress 02/20/2013 None Full Exam - General 1994 Eyes pupils and irises Overall: pupils equal, round, reactive to light and accomodation 02/20/2013 None Full Exam - General 1994 Ears/Nose/Throat otoscopic exam Overall: external auditory canals clear 02/20/2013 None Full Exam - General 1994 Ears/Nose/Throat otoscopic exam Overall: tympanic membranes clear 02/20/2013 None Full Exam - General 1995 Ears/Nose/Throat lips/teeth/gingiva Overall: benign lips 02/20/2013 None Full Exam - General 1995 Ears/Nose/Throat lips/teeth/gingiva Overall: normal dentition 02/20/2013 None Full Exam - General 1995 Ears/Nose/Throat lips/teeth/gingiva Overall: benign gingiva 02/20/2013 None Full Exam - General 1994 Ears/Nose/Throat lips/teeth/gingiva Overall: no masses 02/20/2013 None Full Exam - General 1995 Ears/Nose/Throat oral cavity/pharynx/larynx Overall: hypopharynx benign 02/20/2013 None Full Exam - General 1995 Ears/Nose/Throat oral cavity/pharynx/larynx Hard palate: ulcer 02/20/2013 right of midline, in posterior aspect of the hard palate Full Exam - General 1994 Neck inspection of neck Overall: normal size 02/20/2013 None Full Exam - General 1994 Neck inspection of neck Overall: no masses 02/20/2013 None Full Exam - General 1994 Respiratory auscultation Overall: breath sounds clear bilaterally 02/20/2013 None Full Exam - General 1994 Respiratory respiratory effort/rhythm Overall: no retractions 02/20/2013 None Full Exam - General 1994 Respiratory respiratory effort/rhythm Overall: normal rate 02/20/2013 None Full Exam - General 1994 Cardiovascular auscultation of heart Overall: regular rate 02/20/2013 None Full Exam - General 1994 Cardiovascular auscultation of heart Overall: normal heart sounds 02/20/2013 None Full Exam - General 1994 Cardiovascular auscultation of heart Overall: no murmurs 02/20/2013 None Full Exam - General 1994 Abdomen abdominal exam Overall: no tenderness 02/20/2013 None Full Exam - General 1994 Abdomen abdominal exam Overall: normal bowel sounds 02/20/2013 None Full Exam - General 1994 Musculoskeletal head and neck Overall: head atraumatic 02/20/2013 None Full Exam - General 1994 Musculoskeletal head and neck Overall: cervical spine benign 02/20/2013 None Full Exam - General 1994 Musculoskeletal spine, ribs and pelvis Overall: good posture 02/20/2013 None Full Exam - General 1994 Neurologic gait Overall: no ataxia, no unsteadiness 02/20/2013 None Full Exam - General 1994 Psychiatric orientation/consciousness Overall: oriented to person, place and time 02/20/2013 None Full Exam - General 1994 Psychiatric mood and affect Overall: normal mood and affect 02/20/2013 None Full Exam - General 1994 Psychiatric appearance Overall: well-groomed, good eye contact 02/20/2013 None Full Exam - General 1994 Constitutional general appearance Overall: well developed 10/25/2012 None Full Exam - General 1994 Eyes pupils and irises Overall: pupils equal, round, reactive to light and accomodation 10/25/2012 None Full Exam - General 1995 Ears/Nose/Throat otoscopic exam Overall: external auditory canals clear 10/25/2012 None Full Exam - General 1995 Ears/Nose/Throat otoscopic exam Overall: tympanic membranes clear 10/25/2012 None Full Exam - General 1995 Ears/Nose/Throat lips/teeth/gingiva Overall: benign lips 10/25/2012 None Full Exam - General 1995 Ears/Nose/Throat lips/teeth/gingiva Overall: normal dentition 10/25/2012 None Full Exam - General 1995 Ears/Nose/Throat lips/teeth/gingiva Overall: benign gingiva 10/25/2012 None Full Exam - General 1995 Ears/Nose/Throat lips/teeth/gingiva Overall: no masses 10/25/2012 None Full Exam - General 1995 Ears/Nose/Throat oral cavity/pharynx/larynx Overall: hypopharynx benign 10/25/2012 None Full Exam - General 1995 Ears/Nose/Throat oral cavity/pharynx/larynx Hard palate: ulcer 10/25/2012 right of midline, in posterior aspect of the hard palate Full Exam - General 1994 Neck inspection of neck Overall: normal size 10/25/2012 None Full Exam - General 1994 Neck inspection of neck Overall: no masses 10/25/2012 None Full Exam - General 1994 Respiratory auscultation Overall: breath sounds clear bilaterally 10/25/2012 None Full Exam - General 1994 Respiratory respiratory effort/rhythm Overall: no retractions 10/25/2012 None Full Exam - General 1994 Respiratory respiratory effort/rhythm Overall: normal rate 10/25/2012 None Full Exam - General 1994 Cardiovascular extremities Overall: no clubbing 10/25/2012 None Full Exam - General 1994 Cardiovascular auscultation of heart Overall: regular rate 10/25/2012 None Full Exam - General 1994 Cardiovascular auscultation of heart Overall: normal heart sounds 10/25/2012 None Full Exam - General 1994 Cardiovascular auscultation of heart Overall: no murmurs 10/25/2012 None Full Exam - General 1994 Abdomen abdominal exam Overall: no tenderness 10/25/2012 None Full Exam - General 1994 Abdomen abdominal exam Overall: normal bowel sounds 10/25/2012 None Full Exam - General 1994 Musculoskeletal spine, ribs and pelvis Overall: good posture 10/25/2012 None Full Exam - General 1994 Musculoskeletal head and neck Overall: head atraumatic 10/25/2012 None Full Exam - General 1994 Musculoskeletal head and neck Overall: cervical spine benign 10/25/2012 None Full Exam - General 1994 Neurologic gait Overall: no ataxia, no unsteadiness 10/25/2012 None Full Exam - General 1994 Psychiatric orientation/consciousness Overall: oriented to person, place and time 10/25/2012 None Full Exam - General 1994 Psychiatric mood and affect Overall: normal mood and affect 10/25/2012 None Full Exam - General 1994 Psychiatric appearance Overall: well-groomed, good eye contact 10/25/2012 None Full Exam - General 1994 Constitutional general appearance Overall: well developed 07/04/2012 None Full Exam - General 1994 Eyes pupils and irises Overall: pupils equal, round, reactive to light and accomodation 07/04/2012 None Full Exam - General 1994 Ears/Nose/Throat otoscopic exam Overall: external auditory canals clear 07/04/2012 None Full Exam - General 1995 Ears/Nose/Throat otoscopic exam Overall: tympanic membranes clear 07/04/2012 None Full Exam - General 1995 Ears/Nose/Throat lips/teeth/gingiva Overall: benign lips 07/04/2012 None Full Exam - General 1994 Ears/Nose/Throat lips/teeth/gingiva Overall: normal dentition 07/04/2012 None Full Exam - General 1995 Ears/Nose/Throat lips/teeth/gingiva Overall: benign gingiva 07/04/2012 None Full Exam - General 1995 Ears/Nose/Throat lips/teeth/gingiva Overall: no masses 07/04/2012 None Full Exam - General 1994 Ears/Nose/Throat oral cavity/pharynx/larynx Overall: hypopharynx benign 07/04/2012 None Full Exam - General 1994 Ears/Nose/Throat oral cavity/pharynx/larynx Hard palate: ulcer 07/04/2012 right of midline, in posterior aspect of the hard palate Full Exam - General 1994 Neck inspection of neck Overall: normal size 07/04/2012 None Full Exam - General 1994 Neck inspection of neck Overall: no masses 07/04/2012 None Full Exam - General 1994 Respiratory auscultation Overall: breath sounds clear bilaterally 07/04/2012 None Full Exam - General 1994 Respiratory respiratory effort/rhythm Overall: no retractions 07/04/2012 None Full Exam - General 1994 Respiratory respiratory effort/rhythm Overall: normal rate 07/04/2012 None Full Exam - General 1994 Cardiovascular extremities Overall: no clubbing 07/04/2012 None Full Exam - General 1994 Cardiovascular auscultation of heart Overall: regular rate 07/04/2012 None Full Exam - General 1994 Cardiovascular auscultation of heart Overall: normal heart sounds 07/04/2012 None Full Exam - General 1994 Cardiovascular auscultation of heart Overall: no murmurs 07/04/2012 None Full Exam - General 1994 Abdomen abdominal exam Overall: no tenderness 07/04/2012 None Full Exam - General 1994 Abdomen abdominal exam Overall: normal bowel sounds 07/04/2012 None Full Exam - General 1994 Musculoskeletal head and neck Overall: head atraumatic 07/04/2012 None Full Exam - General 1994 Musculoskeletal head and neck Overall: cervical spine benign 07/04/2012 None Full Exam - General 1994 Musculoskeletal spine, ribs and pelvis Overall: good posture 07/04/2012 None Full Exam - General 1994 Neurologic gait Overall: no ataxia, no unsteadiness 07/04/2012 None Full Exam - General 1994 Psychiatric orientation/consciousness Overall: oriented to person, place and time 07/04/2012 None Full Exam - General 1994 Psychiatric mood and affect Overall: normal mood and affect 07/04/2012 None Full Exam - General 1994 Psychiatric appearance Overall: well-groomed, good eye contact 07/04/2012 None Full Exam - General 1994 Abdomen abdominal exam Overall: no tenderness 12/26/2011 None Full Exam - General 1994 Abdomen abdominal exam Overall: normal bowel sounds 12/26/2011 None Full Exam - General 1994 Cardiovascular auscultation of heart Overall: regular rate 12/26/2011 None Full Exam - General 1994 Cardiovascular auscultation of heart Overall: normal heart sounds 12/26/2011 None Full Exam - General 1994 Cardiovascular auscultation of heart Overall: no murmurs 12/26/2011 None Full Exam - General 1994 Constitutional general appearance Overall: well developed 12/26/2011 None Full Exam - General 1994 Ears/Nose/Throat otoscopic exam Overall: external auditory canals clear 12/26/2011 None Full Exam - General 1994 Ears/Nose/Throat otoscopic exam Overall: tympanic membranes clear 12/26/2011 None Full Exam - General 1994 Ears/Nose/Throat lips/teeth/gingiva Overall: benign lips 12/26/2011 None Full Exam - General 1995 Ears/Nose/Throat lips/teeth/gingiva Overall: normal dentition 12/26/2011 None Full Exam - General 1995 Ears/Nose/Throat lips/teeth/gingiva Overall: benign gingiva 12/26/2011 None Full Exam - General 1995 Ears/Nose/Throat lips/teeth/gingiva Overall: no masses 12/26/2011 None Full Exam - General 1995 Ears/Nose/Throat oral cavity/pharynx/larynx Overall: hypopharynx benign 12/26/2011 None Full Exam - General 1994 Ears/Nose/Throat oral cavity/pharynx/larynx Hard palate: ulcer 12/26/2011 right of midline, in posterior aspect of the hard palate Full Exam - General 1994 Eyes pupils and irises Overall: pupils equal, round, reactive to light and accomodation 12/26/2011 None Full Exam - General 1994 Musculoskeletal head and neck Overall: head atraumatic 12/26/2011 None Full Exam - General 1994 Musculoskeletal head and neck Overall: cervical spine benign 12/26/2011 None Full Exam - General 1994 Musculoskeletal spine, ribs and pelvis Overall: good posture 12/26/2011 None Full Exam - General 1994 Neck inspection of neck Overall: normal size 12/26/2011 None Full Exam - General 1994 Neck inspection of neck Overall: no masses 12/26/2011 None Full Exam - General 1994 Neurologic gait Overall: no ataxia, no unsteadiness 12/26/2011 None Full Exam - General 1994 Psychiatric orientation/consciousness Overall: oriented to person, place and time 12/26/2011 None Full Exam - General 1994 Psychiatric mood and affect Overall: normal mood and affect 12/26/2011 None Full Exam - General 1994 Psychiatric appearance Overall: well-groomed, good eye contact 12/26/2011 None Full Exam - General 1994 Respiratory auscultation Overall: breath sounds clear bilaterally 12/26/2011 None Full Exam - General 1994 Respiratory respiratory effort/rhythm Overall: no retractions 12/26/2011 None Full Exam - General 1994 Respiratory respiratory effort/rhythm Overall: normal rate 12/26/2011 None Full Exam - General 1994 Cardiovascular extremities Overall: no clubbing 12/26/2011 None Full Exam - General 1994 Constitutional general appearance Overall: well nourished 10/26/2011 None Full Exam - General 1994 Constitutional general appearance Overall: well developed 10/26/2011 None Full Exam - General 1994 Constitutional general appearance Overall: in no acute distress 10/26/2011 None Full Exam - General 1994 Eyes pupils and irises Overall: pupils equal, round, reactive to light and accomodation 10/26/2011 None Full Exam - General 1994 Ears/Nose/Throat otoscopic exam Overall: external auditory canals clear 10/26/2011 None Full Exam - General 1995 Ears/Nose/Throat otoscopic exam Overall: tympanic membranes clear 10/26/2011 None Full Exam - General 1994 Ears/Nose/Throat lips/teeth/gingiva Overall: benign lips 10/26/2011 None Full Exam - General 1995 Ears/Nose/Throat lips/teeth/gingiva Overall: normal dentition 10/26/2011 None Full Exam - General 1995 Ears/Nose/Throat lips/teeth/gingiva Overall: benign gingiva 10/26/2011 None Full Exam - General 1994 Ears/Nose/Throat lips/teeth/gingiva Overall: no masses 10/26/2011 None Full Exam - General 1994 Ears/Nose/Throat oral cavity/pharynx/larynx Overall: hypopharynx benign 10/26/2011 None Full Exam - General 1995 Ears/Nose/Throat oral cavity/pharynx/larynx Hard palate: ulcer 10/26/2011 right of midline, in posterior aspect of the hard palate Full Exam - General 1994 Neck inspection of neck Overall: normal size 10/26/2011 None Full Exam - General 1994 Neck inspection of neck Overall: no masses 10/26/2011 None Full Exam - General 1994 Respiratory auscultation Overall: breath sounds clear bilaterally 10/26/2011 None Full Exam - General 1994 Respiratory respiratory effort/rhythm Overall: no retractions 10/26/2011 None Full Exam - General 1994 Respiratory respiratory effort/rhythm Overall: normal rate 10/26/2011 None Full Exam - General 1994 Cardiovascular auscultation of heart Overall: regular rate 10/26/2011 None Full Exam - General 1994 Cardiovascular auscultation of heart Overall: normal heart sounds 10/26/2011 None Full Exam - General 1994 Cardiovascular auscultation of heart Overall: no murmurs 10/26/2011 None Full Exam - General 1994 Abdomen abdominal exam Overall: no tenderness 10/26/2011 None Full Exam - General 1994 Abdomen abdominal exam Overall: normal bowel sounds 10/26/2011 None Full Exam - General 1994 Musculoskeletal head and neck Overall: head atraumatic 10/26/2011 None Full Exam - General 1994 Musculoskeletal head and neck Overall: cervical spine benign 10/26/2011 None Full Exam - General 1994 Musculoskeletal spine, ribs and pelvis Overall: good posture 10/26/2011 None Full Exam - General 1994 Neurologic gait Overall: no ataxia, no unsteadiness 10/26/2011 None Full Exam - General 1994 Psychiatric orientation/consciousness Overall: oriented to person, place and time 10/26/2011 None Full Exam - General 1994 Psychiatric mood and affect Overall: normal mood and affect 10/26/2011 None Full Exam - General 1994 Psychiatric appearance Overall: well-groomed, good eye contact 10/26/2011 None Full Exam - General Constitutional general appearance Overall: well nourished 09/15/2011 None Full Exam - General Constitutional general appearance Overall: well developed 09/15/2011 None Full Exam - General Constitutional general appearance Overall: in no acute distress 09/15/2011 None Full Exam - General Eyes pupils and irises Overall: pupils equal, round, reactive to light and accomodation 09/15/2011 None Full Exam - General Ears/Nose/Throat otoscopic exam Overall: external auditory canals clear 09/15/2011 None Full Exam - General Ears/Nose/Throat otoscopic exam Overall: tympanic membranes clear 09/15/2011 None Full Exam - General Ears/Nose/Throat oral cavity/pharynx/larynx Hard palate: lesion 09/15/2011 on right side slightly posterior - improved in size and erythema from last office visit Full Exam - General Neck inspection of neck Overall: normal size 09/15/2011 None Full Exam - General Neck inspection of neck Overall: no masses 09/15/2011 None Full Exam - General Respiratory auscultation Overall: breath sounds clear bilaterally 09/15/2011 None Full Exam - General Respiratory respiratory effort/rhythm Overall: no retractions 09/15/2011 None Full Exam - General Respiratory respiratory effort/rhythm Overall: normal rate 09/15/2011 None Full Exam - General Cardiovascular auscultation of heart Overall: regular rate 09/15/2011 None Full Exam - General Cardiovascular auscultation of heart Overall: normal heart sounds 09/15/2011 None Full Exam - General Neurologic gait Overall: no ataxia, no unsteadiness 09/15/2011 None Full Exam - General Psychiatric orientation/consciousness Overall: oriented to person, place and time 09/15/2011 None Full Exam - General Psychiatric mood and affect Overall: normal mood and affect 09/15/2011 None Full Exam - General Eyes conjunctiva/eyelids Overall: conjunctiva clear 09/15/2011 None Full Exam - General Integument inspection of skin Overall: no rash, lesions 09/15/2011 None Full Exam - General Abdomen abdominal exam Overall: no tenderness 09/15/2011 None Full Exam - General Abdomen abdominal exam Overall: normal bowel sounds 09/15/2011 None Full Exam - General Lymphatic neck nodes Overall: posterior cervical chain benign 09/15/2011 None Full Exam - General Lymphatic neck nodes Overall: anterior cervical chain benign 09/15/2011 None Full Exam - General Respiratory respiratory effort/rhythm Overall: normal rate 05/10/2011 None Full Exam - General Respiratory auscultation Overall: breath sounds clear bilaterally 05/10/2011 None Full Exam - General Cardiovascular auscultation of heart Overall: regular rate 05/10/2011 None Full Exam - General Cardiovascular auscultation of heart Overall: normal heart sounds 05/10/2011 None Full Exam - General Neurologic gait Overall: no ataxia, no unsteadiness 05/10/2011 None Full Exam - General Psychiatric orientation/consciousness Overall: oriented to person, place and time 05/10/2011 None Full Exam - General Psychiatric mood and affect Overall: normal mood and affect 05/10/2011 None Full Exam - General Constitutional general appearance Overall: well nourished 05/10/2011 None Full Exam - General Constitutional general appearance Overall: well developed 05/10/2011 None Full Exam - General Constitutional general appearance Overall: in no acute distress 05/10/2011 None Full Exam - General Eyes pupils and irises Overall: pupils equal, round, reactive to light and accomodation 05/10/2011 None Full Exam - General Ears/Nose/Throat otoscopic exam Overall: external auditory canals clear 05/10/2011 None Full Exam - General Ears/Nose/Throat otoscopic exam Overall: tympanic membranes clear 05/10/2011 None Full Exam - General Ears/Nose/Throat oral cavity/pharynx/larynx Hard palate: lesion 05/10/2011 on right side slightly posterior - improved in size and erythema from last office visit Full Exam - General Neck inspection of neck Overall: normal size 05/10/2011 None Full Exam - General Neck inspection of neck Overall: no masses 05/10/2011 None Full Exam - General Respiratory respiratory effort/rhythm Overall: no retractions 05/10/2011 None Full Exam - General 1995 Ears/Nose/Throat lips/teeth/gingiva Overall: benign lips 04/27/2011 None Full Exam - General 1994 Ears/Nose/Throat oral cavity/pharynx/larynx Hard palate: ulcer 04/27/2011 right of midline, in posterior aspect of the hard palate Full Exam - General 1995 Ears/Nose/Throat oral cavity/pharynx/larynx Overall: hypopharynx benign 04/27/2011 None Full Exam - General 1994 Neck inspection of neck Overall: normal size 04/27/2011 None Full Exam - General 1994 Neck inspection of neck Overall: no masses 04/27/2011 None Full Exam - General 1994 Respiratory auscultation Overall: breath sounds clear bilaterally 04/27/2011 None Full Exam - General 1994 Respiratory respiratory effort/rhythm Overall: normal rate 04/27/2011 None Full Exam - General 1994 Respiratory respiratory effort/rhythm Overall: no retractions 04/27/2011 None Full Exam - General 1994 Cardiovascular auscultation of heart Overall: regular rate 04/27/2011 None Full Exam - General 1994 Cardiovascular auscultation of heart Overall: normal heart sounds 04/27/2011 None Full Exam - General 1994 Cardiovascular auscultation of heart Overall: no murmurs 04/27/2011 None Full Exam - General 1994 Abdomen abdominal exam Overall: no tenderness 04/27/2011 None Full Exam - General 1994 Abdomen abdominal exam Overall: normal bowel sounds 04/27/2011 None Full Exam - General 1994 Musculoskeletal head and neck Overall: cervical spine benign 04/27/2011 None Full Exam - General 1994 Constitutional general appearance Overall: well nourished 04/27/2011 None Full Exam - General 1994 Constitutional general appearance Overall: well developed 04/27/2011 None Full Exam - General 1994 Constitutional general appearance Overall: in no acute distress 04/27/2011 None Full Exam - General 1994 Eyes pupils and irises Overall: pupils equal, round, reactive to light and accomodation 04/27/2011 None Full Exam - General 1994 Ears/Nose/Throat otoscopic exam Overall: tympanic membranes clear 04/27/2011 None Full Exam - General 1995 Ears/Nose/Throat otoscopic exam Overall: external auditory canals clear 04/27/2011 None Full Exam - General 1995 Ears/Nose/Throat lips/teeth/gingiva Overall: benign gingiva 04/27/2011 None Full Exam - General 1995 Ears/Nose/Throat lips/teeth/gingiva Overall: no masses 04/27/2011 None Full Exam - General 1994 Ears/Nose/Throat lips/teeth/gingiva Overall: normal dentition 04/27/2011 None Full Exam - General 1994 Musculoskeletal head and neck Overall: head atraumatic 04/27/2011 None Full Exam - General 1994 Musculoskeletal spine, ribs and pelvis Overall: good posture 04/27/2011 None Full Exam - General 1994 Psychiatric orientation/consciousness Overall: oriented to person, place and time 04/27/2011 None Full Exam - General 1994 Psychiatric mood and affect Overall: normal mood and affect 04/27/2011 None Full Exam - General 1994 Psychiatric appearance Overall: well-groomed, good eye contact 04/27/2011 None Full Exam - General 1994 Neurologic gait Overall: no ataxia, no unsteadiness 04/27/2011 None Procedures Procedure Codes Date PPPS, SUBSEQ VISIT CPT- 4: G0439 06/14/2018 PPPS, SUBSEQ VISIT CPT- 4: G0439 02/06/2017 TRIAMCINOLONE ACET INJ NOS CPT-4: J3301 02/03/2017 PAP CPT-4: 1725076 10/17/2016 ROUTINE VENIPUNCTURE CPT- 4: 84332 07/24/2013 ROUTINE VENIPUNCTURE CPT- 4: 44843 03/13/2013 PRESCRIP TRANSMIT VIA ERX SY CPT-4: G8553 10/25/2012 ROUTINE VENIPUNCTURE CPT- 4: 77417 07/02/2012 PRESCRIP TRANSMIT VIA ERX SY CPT-4: G8553 12/26/2011 ROUTINE VENIPUNCTURE CPT- 4: 74980 10/20/2011 URINALYSIS NONAUTO W/O SCOPE CPT-4: 55587 09/15/2011 PRESCRIP TRANSMIT VIA ERX SY CPT-4: G8553 09/15/2011 ROUTINE VENIPUNCTURE CPT- 4: 87103 06/07/2011 PRESCRIP TRANSMIT VIA ERX SY CPT-4: G8553 04/27/2011 Vital Signs Date Vital 12/12/2018 Blood Pressure 1: 144/72 Code: 8480-6 BMI: 32.1 Code: 97272-3 Heart Rate 1: 73 bpm Height: 5'4" SpO2: 96% Weight: 190 lbs 12/06/2018 Blood Pressure 1: 180/86 Code: 8480-6 Heart Rate 1: 94 bpm Height: 5'4" SpO2: 96% 06/14/2018 Blood Pressure 1: 142/76 Code: 8480-6 BMI: 33.0 Code: 41298-6 Heart Rate 1: 72 bpm Height: 5'4" SpO2: 97% Waist Measure (cm): 107 cm Weight: 195 lbs 09/19/2017 Blood Pressure 1: 148/70 Code: 8480-6 BMI: 33.3 Code: 30828-0 Heart Rate 1: 82 bpm Height: 5'4" SpO2: 98% Weight: 197 lbs 07/21/2017 Blood Pressure 1: 160/62 Code: 8480-6 Blood Pressure 1: 144/68 Code: 8480-6 BMI: 33.3 Code: 94252-0 Heart Rate 1: 75 bpm Height: 5'4" SpO2: 98% Weight: 197 lbs 02/06/2017 Blood Pressure 1: 142/84 Code: 8480-6 BMI: 32.1 Code: 84762-2 Heart Rate 1: 76 bpm Height: 5'4" SpO2: 96% Weight: 190 lbs 02/03/2017 Blood Pressure 1: 142/84 Code: 8480-6 BMI: 32.2 Code: 21982-8 Heart Rate 1: 76 bpm Height: 5'4" SpO2: 96% Weight: 190 lbs 8 oz 10/17/2016 Blood Pressure 1: 136/90 Code: 8480-6 BMI: 31.6 Code: 58186-0 Heart Rate 1: 76 bpm Height: 5'4" SpO2: 98% Weight: 187 lbs 07/14/2015 Blood Pressure 1: 150/80 Code: 8480-6 BMI: 31.1 Code: 50816-1 Heart Rate 1: 74 bpm Height: 5'4" SpO2: 95% Weight: 184 lbs 11/17/2014 Blood Pressure 1: 142/88 Code: 8480-6 BMI: 32.3 Code: 89598-1 Heart Rate 1: 72 bpm Height: 5'4" Weight: 191 lbs 05/19/2014 Blood Pressure 1: 136/74 Code: 8480-6 BMI: 32.8 Code: 61563-9 Heart Rate 1: 72 bpm Height: 5'4" Weight: 194 lbs 11/04/2013 Blood Pressure 1: 154/76 Code: 8480-6 BMI: 31.4 Code: 31202-0 Heart Rate 1: 76 bpm Height: 5'4" Weight: 186 lbs 08/05/2013 Blood Pressure 1: 150/78 Code: 8480-6 BMI: 30.9 Code: 55935-8 Heart Rate 1: 60 bpm Height: 5'4" Weight: 183 lbs 05/22/2013 Blood Pressure 1: 156/76 Code: 8480-6 BMI: 31.8 Code: 54269-4 Heart Rate 1: 72 bpm Height: 5'4" Weight: 188 lbs 02/20/2013 Blood Pressure 1: 138/78 Code: 8480-6 BMI: 32.1 Code: 97453-7 Heart Rate 1: 72 bpm Height: 5'4" Weight: 190 lbs 10/25/2012 Blood Pressure 1: 138/82 Code: 8480-6 BMI: 31.8 Code: 58413-0 Heart Rate 1: 72 bpm Height: 5'4" Weight: 188 lbs 07/04/2012 Blood Pressure 1: 136/70 Code: 8480-6 Heart Rate 1: 72 bpm Weight: 187 lbs 12/26/2011 Blood Pressure 1: 152/82 Code: 8480-6 BMI: 30.4 Code: 26731-6 Heart Rate 1: 78 bpm Height: 5'4" Respiratory Rate: 16 bpm Weight: 180 lbs 10/26/2011 Blood Pressure 1: 140/64 Code: 8480-6 Heart Rate 1: 64 bpm Weight: 181 lbs 8 oz 09/15/2011 Blood Pressure 1: 152/82 Code: 8480-6 BMI: 30.8 Code: 43269-2 Heart Rate 1: 60 bpm Height: 5'4" Temperature: 36.8 (C) / 98.3 (F) Weight: 182 lbs 06/07/2011 Blood Pressure 1: 154/80 Code: 8480-6 05/10/2011 Blood Pressure 1: 122/66 Code: 8480-6 BMI: 30.7 Code: 50311-4 Heart Rate 1: 66 bpm Height: 5'4" Respiratory Rate: 12 bpm Weight: 181 lbs 8 oz 04/27/2011 Blood Pressure 1: 136/70 Code: 8480-6 BMI: 30.6 Code: 32395-3 Heart Rate 1: 72 bpm Height: 5'4" Respiratory Rate: 12 bpm Weight: 181 lbs Functional Status No Functional Status data History of Present Illness Symptom Name Status Result Effective Date Notes Location on the right shoulder 12/12/2018 None Onset of Symptom 1 days ago 12/12/2018 None Onset of Symptom 1 days ago 12/12/2018 None Pertinent Findings Denies fever 12/12/2018 None Pertinent Findings Denies itching 12/12/2018 None Location on the right shoulder 12/06/2018 None Onset of Symptom 1 days ago 12/06/2018 None Location-Major on the upper body 12/06/2018 None Location-Head/Neck on the right side of the neck 12/06/2018 None Location-Extremities on the right shoulder 12/06/2018 None Onset of Symptom 1 days ago 12/06/2018 None Pertinent Findings Denies fever 12/06/2018 None Pertinent Findings Denies itching 12/06/2018 None Annual Medicare Wellness Exam Alcohol Use does not drink any alcohol 06/14/2018 None Annual Medicare Wellness Exam Aspirin Use no 06/14/2018 None Annual Medicare Wellness Exam Blood Glucose (self reported) don't know 06/14/2018 None Annual Medicare Wellness Exam Blood Pressure (self reported) diagnosed with hypertension 06/14/2018 None Annual Medicare Wellness Exam Cholesterol (self reported) high (240 or higher) 06/14/2018 None Annual Medicare Wellness Exam Hemaglobin A-1C (self reported) never checked 06/14/2018 None Annual Medicare Wellness Exam Hours of Sleep 6-8 06/14/2018 None Annual Medicare Wellness Exam Interaction with Friends no 06/14/2018 None Annual Medicare Wellness Exam Describe Your Health good 06/14/2018 None Annual Medicare Wellness Exam Exercise Habits does not exercise 06/14/2018 None Annual Medicare Wellness Exam Life Satisfaction satisfied 06/14/2018 None Annual Medicare Wellness Exam Motor Vehicle Safety always fastens seat belt: yes 06/14/2018 None Annual Medicare Wellness Exam Motor Vehicle Safety drives after drinking: no 06/14/2018 None Annual Medicare Wellness Exam Motor Vehicle Safety rides with someone who has been drinking: no 06/14/2018 None Annual Medicare Wellness Exam Smoking and Tobacco Use non smoker 06/14/2018 None Annual Medicare Wellness Exam Sun Exposure protects skin when outdoors: no 06/14/2018 None Annual Medicare Wellness Exam Depression (last 6 months) some of the time 06/14/2018 None Annual Medicare Wellness Exam Depression or Hopelessness some of the time 06/14/2018 None Annual Medicare Wellness Exam Handling Stress often has problems coping 06/14/2018 None Annual Medicare Wellness Exam Interests & Pleasure almost never 06/14/2018 None Annual Medicare Wellness Exam Social & Emotional Support sometimes 06/14/2018 None Annual Medicare Wellness Exam Stress some of the time 06/14/2018 None Annual Medicare Wellness Exam Nutrition servings of fried food / high fat foods per day: 0-1 06/14/2018 None Annual Medicare Wellness Exam Nutrition servings of high fiber / whole grain per day: 2 06/14/2018 None Annual Medicare Wellness Exam Nutrition servings of vegetables / fruit per day: 2 06/14/2018 None low back pain Location on both sides 09/19/2017 None low back pain Quality intermittent 09/19/2017 None low back pain Quality worsening 09/19/2017 None low back pain Pertinent Findings pain with movement 09/19/2017 None low back pain Triggers activity 09/19/2017 None low back pain Triggers bending 09/19/2017 None low back pain Triggers exertion 09/19/2017 None low back pain Alleviating Factors sitting 09/19/2017 None low back pain Alleviating Factors rest 09/19/2017 None low back pain Frequency of Episodes daily 09/19/2017 None low back pain Limitation on Activities moderately limits activities 09/19/2017 None hypertension Onset of Symptom during adulthood 07/21/2017 None hypertension Quality chronic 07/21/2017 None hypertension Onset and Resolution ongoing 07/21/2017 None hypertension Blood Pressure Values pt checking blood pressure - see scanned document 07/21/2017 None hypertension Severity not consistently severe symptoms, the symptoms fluctuate from no symptoms to anxiety and headaches 07/21/2017 None hypertension Frequency of Episodes unchanged 07/21/2017 None hypertension Significant Medical Conditions cardiac disease 07/21/2017 None hypertension Triggers no known associated factors 07/21/2017 None hypertension Alleviating Factors medication 07/21/2017 in the past hypertension Pertinent Findings Denies dizziness 07/21/2017 None hypertension Pertinent Findings Denies dyspnea 07/21/2017 None hypertension Pertinent Findings Denies edema 07/21/2017 None Annual Medicare Wellness Exam Alcohol Use does not drink any alcohol 02/06/2017 None Annual Medicare Wellness Exam Aspirin Use yes 02/06/2017 occasional Annual Medicare Wellness Exam Blood Glucose (self reported) don't know 02/06/2017 None Annual Medicare Wellness Exam Blood Pressure (self reported) borderline (120/80 - 139/89) 02/06/2017 None Annual Medicare Wellness Exam Cholesterol (self reported) borderline high (200-239) 02/06/2017 None Annual Medicare Wellness Exam Depression (last 6 months) almost never 02/06/2017 None Annual Medicare Wellness Exam Depression or Hopelessness almost never 02/06/2017 None Annual Medicare Wellness Exam Describe Your Health good 02/06/2017 None Annual Medicare Wellness Exam Exercise Habits exercises 5 days per week 02/06/2017 None Annual Medicare Wellness Exam Handling Stress has problems coping 02/06/2017 None Annual Medicare Wellness Exam Hemaglobin A-1C (self reported) don't know 02/06/2017 None Annual Medicare Wellness Exam Hours of Sleep 8 02/06/2017 None Annual Medicare Wellness Exam Interaction with Friends yes 02/06/2017 None Annual Medicare Wellness Exam Interests & Pleasure most of the time 02/06/2017 None Annual Medicare Wellness Exam Life Satisfaction satisfied 02/06/2017 None Annual Medicare Wellness Exam Motor Vehicle Safety always fastens seat belt: y 02/06/2017 None Annual Medicare Wellness Exam Nutrition servings of vegetables / fruit per day: 4 02/06/2017 None Annual Medicare Wellness Exam Smoking and Tobacco Use non smoker 02/06/2017 None Annual Medicare Wellness Exam Social & Emotional Support sometimes 02/06/2017 None Annual Medicare Wellness Exam Stress most of the time 02/06/2017 None Annual Medicare Wellness Exam Sun Exposure protects skin when outdoors: n 02/06/2017 None back pain Quality aching 02/03/2017 None back pain Quality dull 02/03/2017 None back pain Quality intermittent 02/03/2017 None back pain Onset and Resolution gradual in onset 02/03/2017 None back pain Frequency of Episodes daily 02/03/2017 None back pain Pertinent Findings Denies weakness 02/03/2017 None back pain Limitation on Activities does not limit activities 02/03/2017 None back pain Triggers no known associated factors 02/03/2017 None back pain Alleviating Factors rest 02/03/2017 None back pain Exacerbating Factors exertion 02/03/2017 None back pain Sports Participation not significant 02/03/2017 None well woman exam (65+ years) Pap Smear last normal performed on __-__-__ 10/17/2016 years ago well woman exam (65+ years) Menstrual History menopause at age _ 10/17/2016 43 well woman exam (65+ years) Lifestyle normal sleep patterns 10/17/2016 None well woman exam (65+ years) Obstetrical History 4 total pregnancies 10/17/2016 None well woman exam (65+ years) Obstetrical History 4 full term 10/17/2016 None well woman exam (65+ years) Sexual Activity is monogamous 10/17/2016 None well woman exam (65+ years) Nutrition and Exercise normal weight 10/17/2016 None well woman exam (65+ years) Health Guidance regular mammogram 10/17/2016 None back pain Quality aching 07/14/2015 None back pain Quality intermittent 07/14/2015 None back pain Quality dull 07/14/2015 None back pain Onset and Resolution gradual in onset 07/14/2015 None back pain Frequency of Episodes daily 07/14/2015 None back pain Pertinent Findings Denies weakness 07/14/2015 None hypertension Quality chronic 11/17/2014 None hypertension Onset and Resolution ongoing 11/17/2014 None hypertension Blood Pressure Values patient checking blood pressure at home - did not bring in readings 11/17/2014 None hypertension Pertinent Findings Denies dizziness 11/17/2014 None hypertension Pertinent Findings Denies dyspnea 11/17/2014 None hypertension Quality chronic 05/19/2014 None hypertension Onset and Resolution ongoing 05/19/2014 None hypertension Blood Pressure Values patient checking blood pressure at home - did not bring in readings 05/19/2014 None hypertension Pertinent Findings Denies dizziness 05/19/2014 None hypertension Pertinent Findings Denies dyspnea 05/19/2014 None chest pain/pressure Quality aching 05/19/2014 pt reports hx of a rib being out of place and going to chiropractor chest pain/pressure Location on the left side of on the chest 05/19/2014 None chest pain/pressure Onset of Symptom _ years ago 05/19/2014 None chest pain/pressure Pertinent Findings Denies nausea 05/19/2014 None chest pain/pressure Pertinent Findings Denies lightheadedness 05/19/2014 None chest pain/pressure Pertinent Findings Denies cough 05/19/2014 None chest pain/pressure Pertinent Findings vomiting 05/19/2014 once on 05/19 due to headache color change Location-Major in a generalized area 11/04/2013 states has brown spots on face, some on neck, some on shoulder. 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 hypertension Onset and Resolution ongoing 08/05/2013 None hypertension Pertinent Findings Denies edema 08/05/2013 None hypertension Pertinent Findings dizziness 08/05/2013 None hypertension Pertinent Findings Denies dyspnea 08/05/2013 None hypertension Blood Pressure Values pt checking blood pressure - see scanned document 08/05/2013 None hypertension Quality chronic 08/05/2013 None hypertension Onset of Symptom during adulthood 08/05/2013 None hypertension Severity mild 08/05/2013 None hypertension Quality chronic 05/22/2013 None hypertension Onset and Resolution ongoing 05/22/2013 None hypertension Quality intermittent 05/22/2013 None hypertension Blood Pressure Values not checking blood pressure at home 05/22/2013 None hypertension Pertinent Findings edema 05/22/2013 None hypertension Pertinent Findings Denies dyspnea 05/22/2013 None hypertension Pertinent Findings Denies dizziness 05/22/2013 None hypertension Pertinent Findings Denies orthostatic hypotension 05/22/2013 None hypertension Pertinent Findings Denies palpitations 05/22/2013 None hypertension Pertinent Findings Denies tachycardia 05/22/2013 None hypertension Triggers stress 05/22/2013 None hypertension Alleviating Factors medication 05/22/2013 None hypertension Exacerbating Factors stress 05/22/2013 None hypertension Exacerbating Factors change in dietary habits 05/22/2013 None hypertension Onset of Symptom 3 days ago 05/22/2013 None hypertension Blood Pressure Values Stage 1:SBP 140-159 mmHg / DBP 90-99 mmHg 05/22/2013 see list of blood pressure scanned into chart hypertension Frequency of Episodes hourly 05/22/2013 None hypertension Triggers no known associated factors 05/22/2013 None hypertension Pertinent Findings Denies anxiety 05/22/2013 None hypertension Pertinent Findings Denies decreased energy 05/22/2013 None hypertension Pertinent Findings Denies lethargy 05/22/2013 None hypertension Quality stable 02/20/2013 None hypertension Quality chronic 02/20/2013 None hypertension Blood Pressure Values patient checking blood pressure at home - did not bring in readings 02/20/2013 None hypertension Onset and Resolution ongoing 02/20/2013 None hypertension Pertinent Findings Denies confusion 02/20/2013 None hypertension Pertinent Findings Denies dizziness 02/20/2013 None hypertension Pertinent Findings Denies dyspnea 02/20/2013 None hypertension Pertinent Findings Denies edema 02/20/2013 None hypertension Pertinent Findings Denies palpitations 02/20/2013 None hypertension Pertinent Findings Denies orthostatic hypotension 02/20/2013 None hypertension Pertinent Findings Denies tachycardia 02/20/2013 None hypertension Triggers stress 02/20/2013 None hypertension Alleviating Factors medication 02/20/2013 None hypertension Exacerbating Factors change in dietary habits 02/20/2013 None hypertension Exacerbating Factors stress 02/20/2013 None hypertension Severity mild 02/20/2013 None hypertension Quality chronic 10/25/2012 complains of pressure in head at times hypertension Onset and Resolution ongoing 10/25/2012 None hypertension Blood Pressure Values pt checking blood pressure - see scanned document 10/25/2012 None hypertension Alleviating Factors medication 10/25/2012 None hypertension Pertinent Findings Denies dizziness 10/25/2012 None hypertension Pertinent Findings Denies orthostatic hypotension 10/25/2012 None hypertension Pertinent Findings Denies palpitations 10/25/2012 None hypertension Pertinent Findings Denies tachycardia 10/25/2012 None hypertension Pertinent Findings Denies nausea 10/25/2012 None hypertension Onset of Symptom 3 days ago 10/25/2012 None hypertension Blood Pressure Values Stage 1:SBP 140-159 mmHg / DBP 90-99 mmHg 10/25/2012 see list of blood pressure scanned into chart hypertension Blood Pressure Values Stage 2:SBP 160-179 mmHg / DBP 100-109 mmHg 10/25/2012 None hypertension Frequency of Episodes hourly 10/25/2012 None hypertension Triggers no known associated factors 10/25/2012 None hypertension Exacerbating Factors stress 10/25/2012 None hypertension Pertinent Findings Denies anxiety 10/25/2012 None hypertension Pertinent Findings Denies decreased energy 10/25/2012 None hypertension Pertinent Findings Denies lethargy 10/25/2012 None hypertension Quality chronic 07/04/2012 None hypertension Onset and Resolution ongoing 07/04/2012 None hypertension Onset of Symptom 3 days ago 07/04/2012 None hypertension Blood Pressure Values Stage 1:SBP 140-159 mmHg / DBP 90-99 mmHg 07/04/2012 see list of blood pressure scanned into chart hypertension Blood Pressure Values Stage 2:SBP 160-179 mmHg / DBP 100-109 mmHg 07/04/2012 None hypertension Frequency of Episodes hourly 07/04/2012 None hypertension Triggers no known associated factors 07/04/2012 None hypertension Pertinent Findings Denies anxiety 07/04/2012 None hypertension Pertinent Findings Denies dizziness 07/04/2012 None hypertension Pertinent Findings Denies decreased energy 07/04/2012 None hypertension Pertinent Findings Denies lethargy 07/04/2012 None hypertension Exacerbating Factors stress 07/04/2012 None hypertension Alleviating Factors medication 07/04/2012 None medication follow up Additional Comments medication use 12/26/2011 started coreg medication follow up Location oral intake 12/26/2011 None hypertension Quality chronic 12/26/2011 None hypertension Onset and Resolution ongoing 12/26/2011 None hypertension Blood Pressure Values Stage 1:SBP 140-159 mmHg / DBP 90-99 mmHg 12/26/2011 see list of blood pressure scanned into chart hypertension Blood Pressure Values Stage 2:SBP 160-179 mmHg / DBP 100-109 mmHg 12/26/2011 None hypertension Frequency of Episodes hourly 12/26/2011 None hypertension Triggers no known associated factors 12/26/2011 None hypertension Onset of Symptom 3 days ago 12/26/2011 None hypothyroid Onset and Resolution ongoing 12/26/2011 None hypothyroid Severity mild with subclinical signs 12/26/2011 None hypothyroid Pertinent Findings coarse hair 12/26/2011 None hypothyroid Pertinent Findings cold intolerance 12/26/2011 None hypertension Quality chronic 10/26/2011 None hypertension Onset and Resolution ongoing 10/26/2011 None hypothyroid Onset and Resolution ongoing 10/26/2011 None hypothyroid Quality chronic 10/26/2011 pt refuses to take medications. hypertension Blood Pressure Values Stage 1:SBP 140-159 mmHg / DBP 90-99 mmHg 10/26/2011 see list of blood pressure scanned into chart hypertension Blood Pressure Values Stage 2:SBP 160-179 mmHg / DBP 100-109 mmHg 10/26/2011 None hypertension Frequency of Episodes hourly 10/26/2011 None hypertension Triggers no known associated factors 10/26/2011 None hypothyroid Severity mild with subclinical signs 10/26/2011 None hypothyroid Pertinent Findings coarse hair 10/26/2011 None hypothyroid Pertinent Findings cold intolerance 10/26/2011 None dizziness Quality sense of room spinning 09/15/2011 None dizziness Onset of Symptom 5 days ago 09/15/2011 None dizziness Onset and Resolution sudden in onset 09/15/2011 after bending over the get her shoes. Also happened when she turned over in bed. States she was better Monday. States she feels slightly nauseated with it as well. nausea Severity mild 09/15/2011 None nausea Frequency of Episodes unchanged 09/15/2011 None nausea Length of Episodes 1 minutes 09/15/2011 None nausea Triggers activity 09/15/2011 None nausea Triggers position change 09/15/2011 None nausea Alleviating Factors rest 09/15/2011 None nausea Exacerbating Factors position change 09/15/2011 None nausea Quality acute 09/15/2011 None nausea Onset of Symptom 4 days ago. 09/15/2011 States she thought maybe she was getting a UTI. dizziness Triggers head turning 09/15/2011 None dizziness Triggers position change 09/15/2011 None dizziness Alleviating Factors rest 09/15/2011 None dizziness Exacerbating Factors turning the head 09/15/2011 None oral lesion Onset of Symptom 2 weeks ago 05/10/2011 None oral lesion Limitation on Activities does not limit oral intake 05/10/2011 None rash Location-Major in the groin area 05/10/2011 None rash Color pink 05/10/2011 None rash Onset of Symptom 2 weeks ago 05/10/2011 None oral lesion Quality red 05/10/2011 None oral lesion Quality tender 05/10/2011 None oral lesion Onset and Resolution ongoing 05/10/2011 None rash Onset and Resolution gradual in onset 05/10/2011 None rash Onset and Resolution ongoing 05/10/2011 None rash Limitation on Activities does not limit activities 05/10/2011 None rash Prior Treatments previously treated 05/10/2011 None rash Severity mild 05/10/2011 None hypertension Blood Pressure Values Stage 1:SBP 140-159 mmHg / DBP 90-99 mmHg 04/27/2011 see list of blood pressure scanned into chart hypertension Onset of Symptom 3 days ago 04/27/2011 None hypertension Blood Pressure Values Stage 2:SBP 160-179 mmHg / DBP 100-109 mmHg 04/27/2011 None hypertension Frequency of Episodes hourly 04/27/2011 None hypertension Triggers no known associated factors 04/27/2011 None headache Location in the left occipital area 04/27/2011 None headache Location in the right occipital area 04/27/2011 None headache Quality aching 04/27/2011 None headache Quality dull 04/27/2011 None headache Onset of Symptom 3 days ago 04/27/2011 None headache Alleviating Factors medication 04/27/2011 has tried, tylenol, aspirin, and aleve with some relief rash Location-Major on the upper body 04/27/2011 None rash Location-Major on the legs 04/27/2011 None rash Location-Head/Neck on the palate 04/27/2011 None rash Color red 04/27/2011 itches rash Onset and Resolution sudden in onset 04/27/2011 None rash Onset of Symptom 1 days ago 04/27/2011 None Advance Directives No Advance Directive data Encounters Encounter Performer Location Codes Date 57501 EST. PATIENT, LEVEL III Diagnosis: Edema, unspecified[ICD10: R60.9] Diagnosis: Other specified soft tissue disorders[ICD10: M79.89] Katie Abdalla MD, [facility] CPT-4: 28089 12/12/2018 53429 EST. PATIENT, LEVEL III Diagnosis: Edema, unspecified[ICD10: R60.9] Diagnosis: Other specified soft tissue disorders[ICD10: M79.89] Katie Abdalla MD, [facility] CPT-4: 27952 12/06/2018 86844 EST. PATIENT, LEVEL IV Diagnosis: Low back pain[ICD10: M54.5] Katie Abdalla MD, [facility] CPT-4: 93657 09/19/2017 ([id number]) 54249 EST. PATIENT, LEVEL III Diagnosis: Essential (primary) hypertension[ICD10: I10] Diagnosis: Epigastric pain[ICD10: R10.13] Tori Abdalla MD, [facility] CPT-4: 01510 07/21/2017 ([id number]) 21063 EST. PATIENT, LEVEL III Diagnosis: Low back pain[ICD10: M54.5] Tori Abdalla MD, [facility] CPT-4: 58910 02/03/2017 ([id number]) 47659 EST. PATIENT, LEVEL IV Diagnosis: Encounter for gynecological examination (general) (routine) without abnormal findings[ICD10: Z01.419] Tori Abdalla MD, [facility] CPT-4: 93529 10/17/2016 61697 EST. PATIENT, LEVEL III Diagnosis: Low back pain[ICD10: M54.5] Katie Abdalla MD, [facility] CPT-4: 98205 07/14/2015 ([id number]) 75345 EST. PATIENT, LEVEL III Diagnosis: ESSENTIAL HYPERTENSION[ICD9: 401.9] Marcela Abdalla MD [facility] CPT- 4: 46403 11/17/2014 ([id number]) 05449 EST. PATIENT, LEVEL III Diagnosis: ESSENTIAL HYPERTENSION[ICD9: 401.9] Diagnosis: HYPERLIPIDEMIA[ICD9: 272.4] Diagnosis: HYPOTHYROIDISM[ICD9: 244.9] Marcela Abdalla MD [facility] CPT-4: 24669 05/19/2014 ([id number]) 70347 EST. PATIENT, LEVEL IV Diagnosis: HYPOTHYROIDISM[ICD9: 244.9] Diagnosis: ESSENTIAL HYPERTENSION[SNOMED: 02372199] Marcela Abdalla MD [facility] CPT-4: 21316 11/04/2013 ([id number]) 21507 EST. PATIENT, LEVEL III Diagnosis: ESSENTIAL HYPERTENSION[SNOMED: 13999655] Marcela Abdalla MD [facility] CPT-4: 95579 08/05/2013 ([id number]) 80646 EST. PATIENT, LEVEL III Diagnosis: ESSENTIAL HYPERTENSION[SNOMED: 24757659] Marcela Abdalla MD [facility] CPT-4: 33973 05/22/2013 ([id number]) 32378 EST. PATIENT, LEVEL III Diagnosis: ESSENTIAL HYPERTENSION[SNOMED: 41814357] Marcela Abdalla MD [facility] CPT-4: 31857 02/20/2013 ([id number]) 20804 EST. PATIENT, LEVEL IV Diagnosis: ESSENTIAL HYPERTENSION[SNOMED: 66341133] Diagnosis: HYPERLIPIDEMIA[ICD9: 272.4] Diagnosis: NONSPECIF SKIN ERUPT NEC[ICD9: 782.1] Marcela Abdalla MD [facility] CPT-4: 22910 10/25/2012 ([id number]) 79017 EST. PATIENT, LEVEL IV Diagnosis: ESSENTIAL HYPERTENSION[SNOMED: 41271360] Diagnosis: HYPERLIPIDEMIA[ICD9: 272.4] Marcela Abdalla MD [facility] CPT-4: 39729 07/04/2012 ([id number]) 41953 EST. PATIENT, LEVEL IV Diagnosis: ESSENTIAL HYPERTENSION[SNOMED: 10987783] Diagnosis: HYPERLIPIDEMIA[ICD9: 272.4] Marcela Abdalla MD [facility] CPT-4: 91346 12/26/2011 ([id number]) 62688 EST. PATIENT, LEVEL IV Diagnosis: ESSENTIAL HYPERTENSION[SNOMED: 86516093] Diagnosis: HYPERLIPIDEMIA[ICD9: 272.4] Marcela Abdalla MD, [facility] CPT-4: 83789 10/26/2011 ([id number]) 18571 EST. PATIENT, LEVEL IV Diagnosis: BPPV (benign paroxysmal positional vertigo)[ICD9: 386.11] Diagnosis: ESSENTIAL HYPERTENSION[SNOMED: 32476760] Tori Abdalla MD, [facility] CPT-4: 32672 09/15/2011 04160 EST. PATIENT, LEVEL III Diagnosis: Lesion of oral mucosa[ICD9: 528.9] Diagnosis: Rash and nonspecific skin eruption[ICD9: 782.1] Marcela Abdalla MD, [facility] CPT-4: 96431 05/10/2011 13881 EST. PATIENT, LEVEL IV Diagnosis: ESSENTIAL HYPERTENSION[SNOMED: 86651072] Diagnosis: Mouth sores[ICD9: 528.9] Marcela Abdalla MD, [facility] CPT-4: 78337 04/27/2011 Plan of Care Planned Activity Notes Codes Status Date Visit Plan: Ongoing swelling to neck/clavicle area - will order imaging and treat as indicated 12/12/2018 Patient Education: Patient Medication Summary Completed 12/12/2018 Visit Plan: Neck, paracervical muscle tenderness and edema - will consider ordering a CT - The pt is to use prn antiinflammatories to manage acute pain. The patient is to call the office if the pain is worsening or does not improve. 12/06/2018 Appointment: Katie Ellis WPtel: [address] [place], [place] [id number] (30 min) [facility] 12/06/2018 Patient Education: Patient Medication Summary Completed 12/06/2018 Referral: Marcelino Rojo WPtel: Patient informed. Referral info faxed. She is to arrive at 10:15 AM for xrays. Completed 06/25/2018 Visit Plan: Medicare Exam - today we discussed the patients past history, immunizations, preventative exams/evaluations - colonoscopy, fecal occult blood testing, routine labs for renal function, glucose, cholesterol, osteoporosis evaluations, cardiovascular testing and cancer screenings. We have also discussed mental health and the signs/symptoms of depression. The patient was advised of home safety evaluations and the need to make sure that as the aging process continues, we need to be aware of different ways to make the home a safer place to reside. The patient has also been counseled that exercise is necessary - and of utmost importance as we age to help decrease fall risk and to maintain independence in the home. Today we discussed the need for the patient to create paperwork for Advanced directives as well as for the patient to provide this office with a copy of her DOPA paperwork for health care surrogate. OA knees-wants synvisc injection -refer to Dr Carrington 06/14/2018 Visit Plan: Medicare Exam - today we discussed the patients past history, immunizations, preventative exams/evaluations - colonoscopy, fecal occult blood testing, routine labs for renal function, glucose, cholesterol, osteoporosis evaluations, cardiovascular testing and cancer screenings. We have also discussed mental health and the signs/symptoms of depression. The patient was advised of home safety evaluations and the need to make sure that as the aging process continues, we need to be aware of different ways to make the home a safer place to reside. The patient has also been counseled that exercise is necessary - and of utmost importance as we age to help decrease fall risk and to maintain independence in the home. Today we discussed the need for the patient to create paperwork for Advanced directives as well as for the patient to provide this office with a copy of her DOPA paperwork for health care surrogate. OA knees-wants synvisc injection -refer to Dr Carrington 06/14/2018 Patient Education: Patient Medication Summary Completed 06/14/2018 Care Plan: Referral Order SNOMED-CT : 632967145 Pending 06/14/2018 Appointment: Katie Ellis [facility]el[facility] [facility] - Annual Wellness Visit 02/12/2018 Visit Plan: Low back pain- the patient was instructed in appropriate posture, need for weight loss to alleviate abdominal obesity that is worsening the patient's back pain.. The pt is to use prn antiinflammatories to manage acute pain. The patient is to call the office if the pain is worsening or does not improve. 09/19/2017 Appointment: Katie Ellis WPtel: [phone] [facility] (30 min) Complex 09/19/2017 Patient Education: Patient Medication Summary Completed 09/19/2017 Visit Plan: 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 - uncontrolled - the patient's medications have been modified as documented in the visit note. The patient has been counseled to cut back on salt in diet for a no added salt diet, low fat diet, start an exercise program with low weight bearing exercises and higher aerobic activity for heart health. The patient is to check blood pressure readings as an outpatient and either fax, call, or email the readings to the office next week for practitioner to review. The pt is to call for acute concerns. Epigastric gxtc-vkzgyfyy-xlqxs prilosec daily-monitor symptoms and call if abdominal pain does not improve or if any worse 07/21/2017 Appointment: Tori Duvall [facility]Ptel[facility] [place] [address] (30 min) Complex 07/21/2017 Patient Education: Patient Medication Summary Completed 07/21/2017 Patient Education: Obesity Completed 07/21/2017 Patient Education: 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 Completed 07/21/2017 Visit Plan: Medicare Exam - today we discussed the patients past history, immunizations, preventative exams/evaluations - colonoscopy, fecal occult blood testing, routine labs for renal function, glucose, cholesterol, osteoporosis evaluations, cardiovascular testing and cancer screenings. We have also discussed mental health and the signs/symptoms of depression. The patient was advised of home safety evaluations and the need to make sure that as the aging process continues, we need to be aware of different ways to make the home a safer place to reside. The patient has also been counseled that exercise is necessary - and of utmost importance as we age to help decrease fall risk and to maintain independence in the home. Today we discussed the need for the patient to create paperwork for Advanced directives as well as for the patient to provide this office with a copy of her DOPA paperwork for health care surrogate. 02/06/2017 Appointment: Katie Ellis [facility]el[facility] [facility] - Annual Wellness Visit 02/06/2017 Patient Education: Patient Medication Summary Completed 02/06/2017 Patient Education: Obesity Completed 02/06/2017 Visit Plan: Low back pain- the patient was instructed in appropriate posture, need for weight loss to alleviate abdominal obesity that is worsening the patient's back pain.. The pt is to use prn antiinflammatories to manage acute pain. The patient is to call the office if the pain is worsening or does not improve. Kenalog injection today in the office. 02/03/2017 Appointment: Tori Duvall WPtel: [phone] (30 min) Complex 02/03/2017 Patient Education: Patient Medication Summary Completed 02/03/2017 Patient Education: Obesity Completed 02/03/2017 Visit Plan: Well Adult Female - exam completed. Pap and breast exam completed. Pt will be called with results of her testing. She was advised to continue with yearly annual exams. Safe sex practices discussed during office visit today. Call if any abnormal gynecologic issues during the next year, otherwise, RTC yearly or prn. Recommend mammogram 10/17/2016 Appointment: Tori Duvall [facility]Ptel[phone] [facility] 10/17/2016 Patient Education: Patient Medication Summary Completed 10/17/2016 Patient Education: Obesity Completed 10/17/2016 Visit Plan: Sacroiliitis - back exercises discussed with the patient, pt to continue with anti-inflammatories. Pt is to call if the symptoms do not improve or if they worsen. Low back pain- the patient was instructed in appropriate posture, need for weight loss to alleviate abdominal obesity that is worsening the patient's back pain.. The pt is to use prn antiinflammatories to manage acute pain. The patient is to call the office if the pain is worsening or does not improve. 07/14/2015 Appointment: (30 min) Complex 07/14/2015 Patient Education: Patient Medication Summary Completed 07/14/2015 Visit Plan: 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 - well controlled - continue with current medications, continue with no added salt diet. Pt has been encouraged to exercise daily. The pt has been advised to call the office if there are any acute concerns about change in blood pressure readings at home. 11/17/2014 Appointment: Marcel[facility]alla [phone] [facility] 11/17/2014 Patient Education: Patient Medication Summary Completed 11/17/2014 Patient Education: 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 Completed 11/17/2014 Visit Plan: 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 - well controlled - continue with current medications, continue with no added salt diet. Pt has been encouraged to exercise daily. The pt has been advised to call the office if there are any acute concerns about change in blood pressure readings at home. 05/19/2014 Appointment: Marcela Abdalla [facility]el[phone] [facility] 05/19/2014 Patient Education: Patient Medication Summary Completed 05/19/2014 Patient Education: 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 Completed 05/19/2014 Visit Plan: 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 - well controlled - continue with current medications, continue with no added salt diet. Pt has been encouraged to exercise daily. The pt has been advised to call the office if there are any acute concerns about change in blood pressure readings at home. Hypothyroidism - pt with chronic hypothyroidism, continue with current medication, will monitor pt to signs or symptoms of lack of adequate supplementation. Pt is to continue with current dose of medication unless directed otherwise. Check labs at regular intervals wither q 3 months or q 6 months based on previous levels of control. 11/04/2013 Appointment: Marcela Abdalla [facility]Ptel[phone] [facility] 11/04/2013 Patient Education: Patient Medication Summary Completed 11/04/2013 Patient Education: 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 Completed 11/04/2013 Visit Plan: 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 - well controlled - continue with current medications, continue with no added salt diet. Pt has been encouraged to exercise daily. The pt has been advised to call the office if there are any acute concerns about change in blood pressure readings at home. 08/05/2013 Appointment: Marcela Abdalla WPtel: [facility] Follow up 08/05/2013 Patient Education: Patient Medication Summary Completed 08/05/2013 Patient Education: 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 Completed 08/05/2013 Patient Education: Patient Medication Summary Completed 07/24/2013 Patient Education: 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 Completed 07/24/2013 Visit Plan: 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 - well controlled - continue with current medications, continue with no added salt diet. Pt has been encouraged to exercise daily. The pt has been advised to call the office if there are any acute concerns about change in blood pressure readings at home. 05/22/2013 Appointment: Marcela Abdalla [facility]Ptel[facility] [facility] [facility] 05/22/2013 Patient Education: Patient Medication Summary Completed 05/22/2013 Patient Education: 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 Completed 05/22/2013 Patient Education: Patient Medication Summary Completed 03/13/2013 Patient Education: 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 Completed 03/13/2013 Visit Plan: 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 - well controlled - continue with current medications, continue with no added salt diet. Pt has been encouraged to exercise daily. The pt has been advised to call the office if there are any acute concerns about change in blood pressure readings at home. 02/20/2013 Appointment: Marcela Abdalla [facility]Ptel[phone] [facility] 02/20/2013 Patient Education: Patient Medication Summary Completed 02/20/2013 Patient Education: 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 Completed 02/20/2013 Visit Plan: 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 - well controlled - continue with current medications, continue with no added salt diet. Pt has been encouraged to exercise daily. The pt has been advised to call the office if there are any acute concerns about change in blood pressure readings at home. Hyperlipidemia - pt has been counseled about appropriate diet, exercise, and need for low fat food choices. I have discussed the need for the patient to take medications as prescribed. If the patient has negative side effects from the medication, they are to CALL the office and not abruptly discontinue the medication without discussion with a practicioner in the office. We will check labs in 3-6 months for follow up on the patient's chronic medical problem and to assure normal liver response to medications. Rash - rx for clobetasol for pt to use on a continuous basis 10/25/2012 Appointment: Marcela Abdalla [facility]Ptel[facility] [facility] 10/25/2012 Patient Education: Patient Medication Summary Completed 10/25/2012 Patient Education: 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 Completed 10/25/2012 Visit Plan: 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 - well controlled - continue with current medications, continue with no added salt diet. Pt has been encouraged to exercise daily. The pt has been advised to call the office if there are any acute concerns about change in blood pressure readings at home. Hyperlipidemia - pt has been counseled about appropriate diet, exercise, and need for low fat food choices. I have discussed the need for the patient to take medications as prescribed. If the patient has negative side effects from the medication, they are to CALL the office and not abruptly discontinue the medication without discussion with a practicioner in the office. We will check labs in 3-6 months for follow up on the patient's chronic medical problem and to assure normal liver response to medications. 07/04/2012 Appointment: Marcela Abdalla WPtel: [facility] [facility] Patient Preventative visit 07/04/2012 Patient Education: Patient Medication Summary Completed 07/04/2012 Patient Education: 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 Completed 07/04/2012 Appointment: Marcela Abdalla WPtel: [facility] Lab Draw 07/02/2012 Patient Education: Patient Medication Summary Completed 07/02/2012 Patient Education: High Blood Pressure: Essential 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 Completed 07/02/2012 Visit Plan: 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 - well controlled - continue with current medications, continue with no added salt diet. Pt has been encouraged to exercise daily. The pt has been advised to call the office if there are any acute concerns about change in blood pressure readings at home. Hyperlipidemia - pt has been counseled about appropriate diet, exercise, and need for low fat food choices. I have discussed the need for the patient to take medications as prescribed. If the patient has negative side effects from the medication, they are to CALL the office and not abruptly discontinue the medication without discussion with a practicioner in the office. We will check labs in 3-6 months for follow up on the patient's chronic medical problem and to assure normal liver response to medications. 12/26/2011 Appointment: Marcela Abdalla WPtel: [address] [facility] [facility] 12/26/2011 Patient Education: Patient Medication Summary Completed 12/26/2011 Patient Education: High Blood Pressure: Essential 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 Completed 12/26/2011 Visit Plan: 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 - well controlled - pt does not want to continue with current meds as she states that the meds are too expensive. I have reminded her that she refused to take twice daily meds and she admits that she has taken the bystolic off and on as she desired in the past. I have recommended to stop the bystolic and start on coreg 3.125mg twice daily as she would rather take meds twice a day than pay full ellison for the bystolic. She was instructed to keep track of her blood pressures, and bring them by the office for review. She was instructed to call for BP's consistently over 170. She was informed that the medication change would probably leasd to higher blood pressures until I am able to get her meds appropriately adjusted. She is to continue with no added salt diet. Pt has been encouraged to exercise daily. The pt has been advised to call the office if there are any acute concerns about change in blood pressure readings at home. Hyperlipidemia - pt has been counseled about appropriate diet, exercise, and need for low fat food choices. I have discussed the need for the patient to take medications as prescribed. If the patient has negative side effects from the medication, they are to CALL the office and not abruptly discontinue the medication without discussion with a practicioner in the office. We will check labs in 3-6 months for follow up on the patient's chronic medical problem and to assure normal liver response to medications. 10/26/2011 Appointment: Marcela Abdalla [facility]Ptel[facility] [place] Other 10/26/2011 Patient Education: Patient Medication Summary Completed 10/26/2011 Patient Education: High Blood Pressure: Essential 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 Completed 10/26/2011 Appointment: Marcela Abdalla [facility]Ptel: [facility] [facility] [place] Lab Draw 10/20/2011 Patient Education: Patient Medication Summary Completed 10/20/2011 Patient Education: High Blood Pressure: Essential 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 Completed 10/20/2011 Visit Plan: BPPV - Benign Paroxysmal Positional Vertigo - I have discussed, in detail, the diagnosis with the patient. A handout has also been provided for the patient. The Eply manuever's have been discussed with the patient with instructions to perform the exercises at least 2-3 times daily. I have also discussed physical therapy for successful teaching and manipulation of the said exercises. Nausea-promethazine as needed if unable to tolerate meclinzine HTN-elevted today-monitor blood pressure at home and bring in readings for review at next appt. Call for chest pain, shortness of breath, headache, vision changes. 09/15/2011 Appointment: Tori Duvall WPtel: [address] [place], [place] [id number] [place] Lab Draw 09/15/2011 Patient Education: Patient Medication Summary Completed 09/15/2011 Patient Education: .Amazing charts Paroxysmal positional vertigo Completed 09/15/2011 Patient Education: High Blood Pressure: Essential 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 Completed 09/15/2011 Appointment: Marcela Abdalla WPtel: [address] [place], [place] [id number] Lab Draw 06/07/2011 Patient Education: Patient Medication Summary Completed 06/07/2011 Patient Education: High Blood Pressure: Essential 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 Completed 06/07/2011 Visit Plan: Mouth lesion - appears to be slowly healing, continue with low acid and low salt foods, if the lesion worsens, call clinic. Rash in groin and fadumo-area - previously visualized, continue with diflucan prn for exacerbation of the rash. 05/10/2011 Appointment: Marcela Abdalla WPtel: [address] [place], [place] [id number] Other 05/10/2011 Patient Education: Patient Medication Summary Completed 05/10/2011 Appointment: Marcela Abdalla WPtel: [address] [place], [place] [phone] Follow up 05/04/2011 Visit Plan: HTN- improved from high blood pressure earlier this week No change in current medication. Try to avoid high salt containing foods. biofreeze to ari Posey at [employer] [facility] [employer] [facility]- a [facility] on [address] is a massage therapist to call about a deep tissue massage RETURN TO CLINIC NEXT WEEK FOR DR TO TAKE A QUICK LOOK AT YOUR MOUTH 04/27/2011 Appointment: Marcela Abdalla WPtel: [address] [place], [place] [phone] Other 04/27/2011 Patient Education: Patient Medication Summary Completed 04/27/2011 Referral: Seth Thorne WPtel: [address], [address] [id number] [place] Referral Relationship Referral: Marcelino Rojo WPtel: Referral Appointment Requested Instructions Comment . Mouth lesion - appears to be slowly healing, continue with low acid and low salt foods, if the lesion worsens, call clinic. Rash in groin and fadumo-area - previously visualized, continue with diflucan prn for exacerbation of the rash. PRILOSEC OTC DAILY . 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 - uncontrolled - the patient's medications have been modified as documented in the visit note. The patient has been counseled to cut back on salt in diet for a no added salt diet, low fat diet, start an exercise program with low weight bearing exercises and higher aerobic activity for heart health. The patient is to check blood pressure readings as an outpatient and either fax, call, or email the readings to the office next week for practitioner to review. The pt is to call for acute concerns. Epigastric pohz-mdnzizhr-xagfh prilosec daily-monitor symptoms and call if abdominal pain does not improve or if any worse . Medicare Exam - today we discussed the patients past history, immunizations, preventative exams/evaluations - colonoscopy, fecal occult blood testing, routine labs for renal function, glucose, cholesterol, osteoporosis evaluations, cardiovascular testing and cancer screenings. We have also discussed mental health and the signs/symptoms of depression. The patient was advised of home safety evaluations and the need to make sure that as the aging process continues, we need to be aware of different ways to make the home a safer place to reside. The patient has also been counseled that exercise is necessary - and of utmost importance as we age to help decrease fall risk and to maintain independence in the home. Today we discussed the need for the patient to create paperwork for Advanced directives as well as for the patient to provide this office with a copy of her DOPA paperwork for health care surrogate. . 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 - well controlled - continue with current medications, continue with no added salt diet. Pt has been encouraged to exercise daily. The pt has been advised to call the office if there are any acute concerns about change in blood pressure readings at home. . Well Adult Female - exam completed. Pap and breast exam completed. Pt will be called with results of her testing. She was advised to continue with yearly annual exams. Safe sex practices discussed during office visit today. Call if any abnormal gynecologic issues during the next year, otherwise, RTC yearly or prn. Recommend mammogram Declined Procedure: (Q2036) FLULAVAL VACC, 3 YRS & >, IM; Declined Reason: Patient Declined. 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 - well controlled - continue with current medications, continue with no added salt diet. Pt has been encouraged to exercise daily. The pt has been advised to call the office if there are any acute concerns about change in blood pressure readings at home. BPPV exercises provided We will call you when we get your physical therapy appointment set up. Use sweet oil to both your ears daily for the next week then twice per week. I sent a prescription for meclizine-try 1/2 to 1 tab every 6 hours as needed for dizziness. I also sent a precription for promethazine suppositories as needed for nausea. Take your fluconazole 1 tab ever other day x 4 doses. Call me next week and let me know if your rash has resolved. . BPPV - Benign Paroxysmal Positional Vertigo - I have discussed, in detail, the diagnosis with the patient. A handout has also been provided for the patient. The Eply manuever's have been discussed with the patient with instructions to perform the exercises at least 2-3 times daily. I have also discussed physical therapy for successful teaching and manipulation of the said exercises. Nausea-promethazine as needed if unable to tolerate meclinzine HTN-elevted today-monitor blood pressure at home and bring in readings for review at next appt. Call for chest pain, shortness of breath, headache, vision changes. . Low back pain- the patient was instructed in appropriate posture, need for weight loss to alleviate abdominal obesity that is worsening the patient's back pain.. The pt is to use prn antiinflammatories to manage acute pain. The patient is to call the office if the pain is worsening or does not improve. . Low back pain- the patient was instructed in appropriate posture, need for weight loss to alleviate abdominal obesity that is worsening the patient's back pain.. The pt is to use prn antiinflammatories to manage acute pain. The patient is to call the office if the pain is worsening or does not improve. Kenalog injection today in the office. . 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 - well controlled - continue with current medications, continue with no added salt diet. Pt has been encouraged to exercise daily. The pt has been advised to call the office if there are any acute concerns about change in blood pressure readings at home. . 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 - well controlled - continue with current medications, continue with no added salt diet. Pt has been encouraged to exercise daily. The pt has been advised to call the office if there are any acute concerns about change in blood pressure readings at home. Hyperlipidemia - pt has been counseled about appropriate diet, exercise, and need for low fat food choices. I have discussed the need for the patient to take medications as prescribed. If the patient has negative side effects from the medication, they are to CALL the office and not abruptly discontinue the medication without discussion with a practicioner in the office. We will check labs in 3-6 months for follow up on the patient's chronic medical problem and to assure normal liver response to medications. Rash - rx for clobetasol for pt to use on a continuous basis . 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 - well controlled - continue with current medications, continue with no added salt diet. Pt has been encouraged to exercise daily. The pt has been advised to call the office if there are any acute concerns about change in blood pressure readings at home. . 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 - well controlled - continue with current medications, continue with no added salt diet. Pt has been encouraged to exercise daily. The pt has been advised to call the office if there are any acute concerns about change in blood pressure readings at home. Hyperlipidemia - pt has been counseled about appropriate diet, exercise, and need for low fat food choices. I have discussed the need for the patient to take medications as prescribed. If the patient has negative side effects from the medication, they are to CALL the office and not abruptly discontinue the medication without discussion with a practicioner in the office. We will check labs in 3-6 months for follow up on the patient's chronic medical problem and to assure normal liver response to medications. RECOMMEND MAMMMOGRAM, FASTING LABS AND PNEUMONIA/FLU VACCINES . Medicare Exam - today we discussed the patients past history, immunizations, preventative exams/evaluations - colonoscopy, fecal occult blood testing, routine labs for renal function, glucose, cholesterol, osteoporosis evaluations, cardiovascular testing and cancer screenings. We have also discussed mental health and the signs/symptoms of depression. The patient was advised of home safety evaluations and the need to make sure that as the aging process continues, we need to be aware of different ways to make the home a safer place to reside. The patient has also been counseled that exercise is necessary - and of utmost importance as we age to help decrease fall risk and to maintain independence in the home. Today we discussed the need for the patient to create paperwork for Advanced directives as well as for the patient to provide this office with a copy of her [employer] paperwork for health care surrogate. OA knees-wants synvisc injection -refer to Dr Carrington RECOMMEND MAMMMOGRAM, FASTING LABS AND PNEUMONIA/FLU VACCINES . Medicare Exam - today we discussed the patients past history, immunizations, preventative exams/evaluations - colonoscopy, fecal occult blood testing, routine labs for renal function, glucose, cholesterol, osteoporosis evaluations, cardiovascular testing and cancer screenings. We have also discussed mental health and the signs/symptoms of depression. The patient was advised of home safety evaluations and the need to make sure that as the aging process continues, we need to be aware of different ways to make the home a safer place to reside. The patient has also been counseled that exercise is necessary - and of utmost importance as we age to help decrease fall risk and to maintain independence in the home. Today we discussed the need for the patient to create paperwork for Advanced directives as well as for the patient to provide this office with a copy of her [employer] paperwork for health care surrogate. OA knees-wants synvisc injection -refer to Dr Carrington Tomorrow at 5:15PM - nothing to eat or drink for 4 hours before. . Ongoing swelling to neck/clavicle area - will order imaging and treat as indicated . 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 - well controlled - continue with current medications, continue with no added salt diet. Pt has been encouraged to exercise daily. The pt has been advised to call the office if there are any acute concerns about change in blood pressure readings at home. Hypothyroidism - pt with chronic hypothyroidism, continue with current medication, will monitor pt to signs or symptoms of lack of adequate supplementation. Pt is to continue with current dose of medication unless directed otherwise. Check labs at regular intervals wither q 3 months or q 6 months based on previous levels of control. . 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 - well controlled - pt does not want to continue with current meds as she states that the meds are too expensive. I have reminded her that she refused to take twice daily meds and she admits that she has taken the bystolic off and on as she desired in the past. I have recommended to stop the bystolic and start on coreg 3.125mg twice daily as she would rather take meds twice a day than pay full [place]ison for the bystolic. She was instructed to keep track of her blood pressures, and bring them by the office for review. She was instructed to call for BP's consistently over 170. She was informed that the medication change would probably leasd to higher blood pressures until I am able to get her meds appropriately adjusted. She is to continue with no added salt diet. Pt has been encouraged to exercise daily. The pt has been advised to call the office if there are any acute concerns about change in blood pressure readings at home. Hyperlipidemia - pt has been counseled about appropriate diet, exercise, and need for low fat food choices. I have discussed the need for the patient to take medications as prescribed. If the patient has negative side effects from the medication, they are to CALL the office and not abruptly discontinue the medication without discussion with a practicioner in the office. We will check labs in 3-6 months for follow up on the patient's chronic medical problem and to assure normal liver response to medications. . Sacroiliitis - back exercises discussed with the patient, pt to continue with anti-inflammatories. Pt is to call if the symptoms do not improve or if they worsen. Low back pain- the patient was instructed in appropriate posture, need for weight loss to alleviate abdominal obesity that is worsening the patient's back pain.. The pt is to use prn antiinflammatories to manage acute pain. The patient is to call the office if the pain is worsening or does not improve. . Neck, paracervical muscle tenderness and edema - will consider ordering a CT - The pt is to use prn antiinflammatories to manage acute pain. The patient is to call the office if the pain is worsening or does not improve. . 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 - well controlled - continue with current medications, continue with no added salt diet. Pt has been encouraged to exercise daily. The pt has been advised to call the office if there are any acute concerns about change in blood pressure readings at home. . 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 - well controlled - continue with current medications, continue with no added salt diet. Pt has been encouraged to exercise daily. The pt has been advised to call the office if there are any acute concerns about change in blood pressure readings at home. Hyperlipidemia - pt has been counseled about appropriate diet, exercise, and need for low fat food choices. I have discussed the need for the patient to take medications as prescribed. If the patient has negative side effects from the medication, they are to CALL the office and not abruptly discontinue the medication without discussion with a practicioner in the office. We will check labs in 3-6 months for follow up on the patient's chronic medical problem and to assure normal liver response to medications. . HTN- improved from high blood pressure earlier this week No change in current medication. Try to avoid high salt containing foods. biofreeze to ari Posey at [employer]- a [employer] [facility] on [address] is a massage therapist to call about a deep tissue massage RETURN TO CLINIC NEXT WEEK FOR DR TO TAKE A QUICK LOOK AT YOUR MOUTH
[2019-01-10] MEDS ORDERED: LIDOCAINE PF 2% 5 ML (XYLOCAINE) VIAL ONE (12:26)
--- OUTSIDE RECORDS SUMMARY | 2019-01-10 12:26 | XMS REPORT | CCD ---
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 Role Phone PP Unavailable CCM Unavailable Summary Purpose Interface Exchange Insurance Providers Payer name Policy type / Coverage type Covered republican ID Effective Begin Date Effective End Date WPS Medicare Part B Medicare Part B [id number] Unknown Unknown [facility] INSUR Medicare Part B [id number] Unknown Unknown Family history Daughter Diagnosis Age At [...] Unknown 04/27/2011 Number of children Unknown [id number] 04/27/2011 Employment Unknown Retired 04/27/[address]: 174489580 Never smoker 04/27/[address]: 129325768 Never drinks alcohol 04/27/2011 Has the patient ever used illegal drugs? Unknown Has never used illegal drugs 04/27/2011 Allergies, Adverse Reactions, Alerts Allergies, Adverse Reactions, Alerts data not found Past Medical History Illness Codes Condition Status Onset Date Resolved Date Encounter for general adult medical examination with abnormal findings ICD-9: V70.0 ICD-10: Z00.01 Active 02/06/2017 Unknown Low back pain ICD-9: 724.2 ICD-10: M54.5 Active 07/13/2015 Unknown Encounter for gynecological examination (general) (routine) [...] Problems Condition Codes Effective Dates Condition Status Encounter for general adult medical examination with abnormal findings ICD-9: V70.0 ICD-10: Z00.01 02/06/2017 Active Low back pain ICD-9: 724.2 ICD-10: M54.5 07/13/2015 Active Encounter for gynecological examination (general) (routine) [...] Start Date Stop Date Status Fill Instructions Kenalog 40 mg/mL suspension for injection RxNorm: 1861768 1 Milliliter(s) Inj 02/03/2017 02/03/2017 Inactive Zocor 10 mg tablet RxNorm: 721438 1 Tablet(s) PO daily 05/14/2015 05/13/2015 Inactive Zocor 10 mg tablet RxNorm: 409935 1 Tablet(s) PO daily 05/14/2015 05/06/2016 Inactive Zocor 10 mg tablet RxNorm: 086530 1 Tablet(s) PO daily 05/14/2015 05/07/2016 Inactive bcgvjqav-nuaygplvi-dmxfwhuto 3.5 mg/g-10,000 unit/g-0.5 %topical cream RxNorm: 7025476 3 gtts TOP TID 11/17/2014 11/26/2014 Inactive [SAVINGS FOR NON-COVERED DRUGS -- BIN:[id number], PCN: [id number], Group: XXXXX, ID# [id number], Questions: . THIS IS NOT INSURANCE.] simvastatin 40 mg tablet RxNorm: 052311 1/2 Tablet(s) PO QHS 10/09/2013 11/03/2013 Inactive Synthroid 25 mcg tablet RxNorm: 948674 1 Tablet(s) PO daily 08/19/2013 11/11/2014 Inactive clobetasol 0.05 % Topical Cream RxNorm: 905025 1 Application TOP TID PRN 04/05/2013 07/03/2013 Inactive nystatin 100,000 unit/gram Topical Powder RxNorm: 026664 Gram(s) TOP apply to affected area as needed 03/22/2013 10/16/2016 Inactive fluconazole 150 mg tablet RxNorm: 833004 1 Tablet(s) PO 03/19/2013 03/18/2013 Inactive take one at outbreak and then use nystatin powder (she has nystatin at home) fluconazole 150 mg tablet RxNorm: 400689 1 Tablet(s) PO 03/19/2013 03/25/2013 Inactive take one at outbreak and then use nystatin powder (she has nystatin at home) simvastatin 40 mg tablet RxNorm: 636886 1/2 Tablet(s) PO QHS 03/18/2013 07/15/2013 Inactive Synthroid 25 mcg tablet RxNorm: 182413 1 Tablet(s) PO daily 03/18/2013 08/14/2013 Inactive clobetasol 0.05 % Topical Cream RxNorm: 713213 1 Application TOP TID PRN 10/25/2012 01/22/2013 Inactive Coreg 3.125 mg tablet RxNorm: 596560 1 Tablet(s) PO BID 04/17/2012 07/03/2012 Inactive Coreg 3.125 mg tablet RxNorm: 767145 1 Tablet(s) PO BID 03/16/2012 04/14/2012 Inactive Diflucan 150 mg Tab RxNorm: 687834 1 Tablet(s) PO daily 12/26/2011 01/22/2012 Inactive simvastatin 40 mg tablet RxNorm: 953517 1/2 Tablet(s) PO QHS 04/27/2011 03/17/2013 Inactive lisinopril 20 mg tablet RxNorm: 074887 1 Tablet(s) PO as needed No Start Date Active coenzyme Q10 oral RxNorm: 82342 oral No Start Date Active Vitamin C Oral RxNorm: Oral No Start Date 10/16/2016 Inactive Synthroid 25 mcg tablet RxNorm: 473035 Tablet(s) PO No Start Date 03/17/2013 Inactive coenzyme Q10 75 mg Cap RxNorm: 240147 1 Capsule(s) PO daily No Start Date 10/16/2016 Inactive Coreg 3.125 mg tablet RxNorm: 788813 1 Tablet(s) PO BID No Start Date 03/15/2012 Inactive simvastatin 40 mg Tab RxNorm: 893381 1 Tablet(s) PO QHS No Start Date 04/26/2011 Inactive aspirin 81 mg capsule,delayed release RxNorm: 798505 1 Capsule(s) PO daily No Start Date 10/16/2016 Inactive metoprolol succinate ER 50 mg tablet,extended release 24 hr RxNorm: 980141 1 Tablet(s) PO daily No Start Date 10/16/2016 Inactive Bystolic 5 mg Tab RxNorm: 798909 1 Tablet(s) PO daily No Start Date 10/30/2011 Inactive clobetasol 0.05 % Topical Cream RxNorm: 103342 TOP No Start Date 10/24/2012 Inactive omega-3 fatty acids 1,250 mg Cap RxNorm: 6216893 1 Capsule(s) PO daily No Start Date 10/16/2016 Inactive meclizine 12.5 mg Tab RxNorm: 866673 1/2-1 Tablet(s) PO Q6 PRN No Start Date 05/18/2014 Inactive promethazine 25 mg Rectal Suppository RxNorm: 982965 1 Suppository RTL Q6 PRN No Start Date 07/03/2012 Inactive nystatin 100,000 unit/gram Topical Powder RxNorm: 596703 Gram(s) TOP apply to affected area as needed No Start Date 03/21/2013 Inactive Medication Administered Medication Codes Instructions Start Date Status Kenalog 40 mg/mL suspension for injection RxNorm: 9633211 1Milliliter 02/03/2017 No longer Active Immunizations Vaccine Codes Date Status Influenza CVX: 141 05/22/2013 completed Assessments Condition Codes Effective Dates Encounter for general adult medical examination with abnormal findings ICD-10: Z00.01 ICD-9: V70.0 02/06/2017 Low back pain ICD-10: M54.5 ICD-9: 724.2 02/03/2017 Encounter for gynecological examination (general) (routine) without [...] Visit Reason For Visit Effective Dates Notes Annual Medicare Wellness Exam 02/06/2017 back pain 02/03/2017 well woman exam (65+ years) 10/17/2016 back pain 07/14/2015 hypertension 11/17/2014 hypertension 05/19/2014 color change 11/04/2013 hypertension 08/05/2013 hypertension 05/22/2013 hypertension 02/20/2013 hypertension 10/25/2012 hypertension 07/04/2012 medication follow up 12/26/2011 hypertension 10/26/2011 nausea 09/15/2011 oral lesion 05/10/2011 on the roof of mouth hypertension 04/27/2011 Results Observation Observation Code Item Item Code Result Date Lipid Ord30 CHOL 248 mg/dL 10/28/2016 Lipid [...] 40.5 % 10/28/2016 Cbc With Differential Ord2 Lymph% 41.8 % 10/28/2016 Cbc With Differential Ord2 MCV 95.2 fl 10/28/2016 Cbc With Differential Ord2 MCH 31.1 pg 10/28/2016 Cbc With Differential Ord2 [place]% 11.9 % 10/28/2016 Cbc With Differential Ord2 MCHC 32.7 pg 10/28/2016 Cbc With Differential Ord2 Eos% 4.8 % 10/28/2016 Cbc With Differential Ord2 Baso% 1.0 % 10/28/2016 Cbc With Differential Ord2 PLT 300 K/ul 10/28/2016 Cbc With Differential Ord2 RDW 15.1 % 10/28/2016 Cbc With Differential Ord2 Neut ABS# 2.00 K/ul 10/28/2016 Cbc With Differential Ord2 Lymph ABS# 2.07 K/ul 10/28/2016 Cbc With Differential Ord2 [place] ABS# 0.6 K/ul 10/28/2016 Cbc With Differential Ord2 Eos ABS# 0.2 K/ul 10/28/2016 Cbc With Differential Ord2 Baso ABS# 0.1 K/ul 10/28/2016 Tsh Ord6 hTSH II 2.77 uIU/mL 10/28/2016 Comp Metabolic Hpc926 NA 138 mEq/L 10/28/2016 Comp Metabolic Fyf290 K 4.6 mEq/L 10/28/2016 Comp Metabolic Woi119 CL 104 mEq/L 10/28/2016 Comp Metabolic Ygi917 CO2 29.0 mEq/L 10/28/2016 Comp Metabolic Swk011 ANION GAP 10 10/28/2016 Comp Metabolic Sqh582 GLUCOSE 88 mg/dL 10/28/2016 Comp Metabolic Emz655 Creat 0.9 mg/dL 10/28/2016 Comp Metabolic Zbj082 eGFR 60 ml/min/1.73m2 10/28/2016 Comp Metabolic Nmt142 BUN 27 mg/dL 10/28/2016 Comp Metabolic Nko661 B/C Ratio 28.7 Ratio 10/28/2016 Comp Metabolic Bmn074 CALCIUM 9.7 mg/dL 10/28/2016 Comp Metabolic Rpe443 ALK PHOS 58 U/L 10/28/2016 Comp Metabolic Sus126 AST(SGOT) 20 U/L 10/28/2016 Comp Metabolic Ucv218 ALT(SGPT) 14 U/L 10/28/2016 Comp Metabolic Bdl161 BILI T 0.6 mg/dL 10/28/2016 Comp Metabolic Ghv325 ALBUMIN 3.6 g/dL 10/28/2016 Comp Metabolic Hdx363 TPRO 6.3 g/dL 10/28/2016 Comp Metabolic Fbp676 GLOB 2.7 g/dL 10/28/2016 Comp Metabolic Qeu251 A/G Ratio 1.3 Ratio 10/28/2016 Comp Metabolic Jds700 Osmo 280 mOsmo 10/28/2016 LIPID GRP HDL TEST 60 MG/DL 05/13/2015 LIPID GRP TRIG 100 MG/DL 05/13/2015 LIPID GRP TEST LDL 190 MG/DL 05/13/2015 LIPID GRP CHOL 270 MG/DL 05/13/2015 LIPID GRP RCHOL/HDL 4.50 RATIO 05/13/2015 LIPID GRP NON-HDL CH 210 MG/DL 05/13/2015 LIVER PNL 0715753 AST 29 U/L 05/13/2015 LIVER PNL 1379003 ALK PHOS 70 U/L 05/13/2015 LIVER PNL 1190063 BILI TOT 0.5 MG/DL 05/13/2015 LIVER PNL 5167636 ALT 27 IU/L 05/13/2015 LIVER PNL 3863474 BILI DIR 0.1 MG/DL 05/13/2015 LIVER PNL 8700993 ALBUMIN 3.8 GM/DL 05/13/2015 LIVER PNL 9296682 PROT TOT 7.3 GM/DL 05/13/2015 LIPID GRP HDL TEST 46 MG/DL 07/24/2013 LIPID GRP 9953613 TRIG 86 MG/DL 07/24/2013 LIPID GRP 5382486 TEST LDL 113 MG/DL 07/24/2013 LIPID GRP 6384508 CHOL 176 MG/DL 07/24/2013 LIPID GRP RCHOL/HDL 3.83 RATIO 07/24/2013 CHEM 14 4007833 AST 25 U/L 07/24/2013 CHEM 14 8699567 ALT 20 IU/L 07/24/2013 CHEM 14 9650422 BUN 18 MG/DL 07/24/2013 CHEM 14 6135727 ALBUMIN 4.0 GM/DL 07/24/2013 CHEM 14 2986665 CHLORIDE 105 MMOL/L 07/24/2013 CHEM 14 0791204 BILI TOT 0.4 MG/DL 07/24/2013 CHEM 14 5837837 ALK PHOS 57 U/L 07/24/2013 CHEM 14 6641661 SODIUM 139 MMOL/L 07/24/2013 CHEM 14 3648010 CREATININE 0.83 MG/DL 07/24/2013 CHEM 14 7772154 CALCIUM 10.0 MG/DL 07/24/2013 CHEM 14 4739709 POTASSIUM 4.5 MMOL/L 07/24/2013 CHEM 14 8654911 PROT TOT 6.3 GM/DL 07/24/2013 CHEM 14 3705637 GLUCOSE 91 MG/DL 07/24/2013 CHEM 14 0833229 BICARB 28 MMOL/L 07/24/2013 CHEM 14 0526128 ANION GAP 6 MEQ/L 07/24/2013 FREE T4 6243107 FREE T4 1.17 NG/DL 07/24/2013 GFR CALC 3074765 GFR AA >60 ML/MIN 07/24/2013 GFR CALC 3671697 GFR NON-AA >60 ML/MIN 07/24/2013 CBC 5510334 WBC 5.7 10e9/L 07/24/2013 CBC 7766622 RBC 4.39 10e12/L 07/24/2013 CBC 0846911 HGB 13.6 g/dL 07/24/2013 CBC 5675815 HCT DET 41.7 % 07/24/2013 CBC 0204926 MCV 95.0 fL 07/24/2013 CBC 2417266 MCH 31.0 pg 07/24/2013 CBC 7881245 MCHC 32.6 g/dL 07/24/2013 CBC 4382972 PLT 341 10e9/L 07/24/2013 CBC 1112649 MPV 9.7 fL 07/24/2013 CBC 4100937 RORO % 37.9 % 07/24/2013 CBC 7099314 LY % 38.1 % 07/24/2013 CBC 6615583 MON % 12.0 % 07/24/2013 CBC 7750048 EOS % 9.9 % 07/24/2013 CBC 8121805 BASO % 2.1 % 07/24/2013 CBC 1945429 RDW 14.1 % 07/24/2013 CBC 3106138 ABS RORO 2.16 10e9/L 07/24/2013 CBC 6728038 ABS LYMPH 2.17 10e9/L 07/24/2013 CBC 4082126 ABS MONO 0.68 10e9/L 07/24/2013 CBC 2222030 ABS EOS 0.56 10e9/L 07/24/2013 CBC 9092896 ABS BASO 0.12 10e9/L 07/24/2013 CBC 0069529 RDW-SD 47.2 fL 07/24/2013 TSH 7754171 TSH 3.354 uIU/ML 07/24/2013 FREE T4 3844190 FREE T4 0.97 NG/DL 03/14/2013 TSH 6587662 TSH 6.175 uIU/ML 03/13/2013 LIPID GRP HDL TEST 51 MG/DL 03/13/2013 LIPID GRP TRIG 182 MG/DL 03/13/2013 LIPID GRP TEST LDL 191 MG/DL 03/13/2013 LIPID GRP 7112471 CHOL 278 MG/DL 03/13/2013 LIPID GRP RCHOL/HDL 5.45 RATIO 03/13/2013 CHEM 14 7837659 AST 23 U/L 03/13/2013 CHEM 14 5727005 ALT 18 IU/L 03/13/2013 CHEM 14 6443862 BUN 21 MG/DL 03/13/2013 CHEM 14 5065123 ALBUMIN 4.1 GM/DL 03/13/2013 CHEM 14 1328601 CHLORIDE 107 MMOL/L 03/13/2013 CHEM 14 8440217 BILI TOT 0.4 MG/DL 03/13/2013 CHEM 14 7660030 ALK PHOS 57 U/L 03/13/2013 CHEM 14 1812822 SODIUM 140 MMOL/L 03/13/2013 CHEM 14 0236308 CREATININE 0.94 MG/DL 03/13/2013 CHEM 14 0374898 CALCIUM 9.8 MG/DL 03/13/2013 CHEM 14 8696830 POTASSIUM 4.4 MMOL/L 03/13/2013 CHEM 14 4725092 PROT TOT 6.1 GM/DL 03/13/2013 CHEM 14 9410254 GLUCOSE 90 MG/DL 03/13/2013 CHEM 14 7255161 BICARB 27 MMOL/L 03/13/2013 CHEM 14 6452787 ANION GAP 6 MEQ/L 03/13/2013 GFR CALC 0568324 GFR AA >60 ML/MIN 03/13/2013 GFR CALC 1024476 GFR NON-AA 57.0L ML/MIN 03/13/2013 CBC 5183723 WBC 4.9 10e9/L 07/02/2012 CBC 9061225 RBC 4.20 10e12/L 07/02/2012 CBC 4396610 HGB 13.3 g/dL 07/02/2012 CBC 4191458 HCT DET 40.2 % 07/02/2012 CBC 3173572 MCV 95.7 fL 07/02/2012 CBC 1356803 MCH 31.7 pg 07/02/2012 CBC 6247865 MCHC 33.1 g/dL 07/02/2012 CBC 1671162 PLT 317 10e9/L 07/02/2012 CBC 8535909 MPV 10.3 fL 07/02/2012 CBC 4616018 RORO % 40.1 % 07/02/2012 CBC 6627361 LY % 42.8 % 07/02/2012 CBC 9681285 MON % 12.0 % 07/02/2012 CBC 1711567 EOS % 4.3 % 07/02/2012 CBC 8606707 BASO % 0.8 % 07/02/2012 CBC 3355000 RDW 13.9 % 07/02/2012 CBC 7268312 ABS RORO 1.96 10e9/L 07/02/2012 CBC 5317902 ABS LYMPH 2.10 10e9/L 07/02/2012 CBC 0238197 ABS MONO 0.59 10e9/L 07/02/2012 CBC 9651715 ABS EOS 0.21 10e9/L 07/02/2012 CBC 1314279 ABS BASO 0.04 10e9/L 07/02/2012 CBC 1353257 RDW-SD 47.3 fL 07/02/2012 CHEM 14 7285158 AST 23 U/L 07/02/2012 CHEM 14 5827551 ALT 20 IU/L 07/02/2012 CHEM 14 7076619 BUN 14 MG/DL 07/02/2012 CHEM 14 1525541 ALBUMIN 3.8 GM/DL 07/02/2012 CHEM 14 3380426 CHLORIDE 108 MMOL/L 07/02/2012 CHEM 14 8929720 BILI TOT 0.4 MG/DL 07/02/2012 CHEM 14 9966874 ALK PHOS 66 U/L 07/02/2012 CHEM 14 8187308 SODIUM 143 MMOL/L 07/02/2012 CHEM 14 0172700 CREATININE 0.88 MG/DL 07/02/2012 CHEM 14 8733776 CALCIUM 9.7 MG/DL 07/02/2012 CHEM 14 7794186 POTASSIUM 4.6 MMOL/L 07/02/2012 CHEM 14 2235382 PROT TOT 6.4 GM/DL 07/02/2012 CHEM 14 6802196 GLUCOSE 87 MG/DL 07/02/2012 CHEM 14 5754466 BICARB 28 MMOL/L 07/02/2012 CHEM 14 7431315 ANION GAP 7 MEQ/L 07/02/2012 GFR CALC 1300893 GFR AA >60 ML/MIN 07/02/2012 GFR CALC 1355041 GFR NON-AA >60 ML/MIN 07/02/2012 FREE T4 0042768 FREE T4 1.10 NG/DL 07/02/2012 TSH 7733533 TSH 2.909 uIU/ML 07/02/2012 LIPID GRP HDL TEST 54 MG/DL 07/02/2012 LIPID GRP TRIG 102 MG/DL 07/02/2012 LIPID GRP TEST LDL 109 MG/DL 07/02/2012 LIPID GRP CHOL 183 MG/DL 07/02/2012 LIPID GRP RCHOL/HDL 3.39 RATIO 07/02/2012 URINALYSIS NONAUTO W/O SCOPE 45385 Specific Loraine 1.005 DateTime(Free Text in Aprima) URINALYSIS NONAUTO W/O SCOPE 14824 PH 5.0 DateTime(Free Text in Aprima) URINALYSIS NONAUTO W/O SCOPE 30920 GLUCOSE NEG DateTime(Free Text in Aprima) URINALYSIS NONAUTO W/O SCOPE 25738 Protein NEG DateTime(Free Text in Aprima) URINALYSIS NONAUTO W/O SCOPE 16625 Blood NEG DateTime(Free Text in Aprima) URINALYSIS NONAUTO W/O SCOPE 30126 Bilirubin NEG DateTime(Free Text in Aprima) URINALYSIS NONAUTO W/O SCOPE 54565 Ketones NEG DateTime(Free Text in Aprima) URINALYSIS NONAUTO W/O SCOPE 29479 Urobilinogen NEG DateTime(Free Text in Aprima) URINALYSIS NONAUTO W/O SCOPE 79060 Nitrite NEG DateTime(Free Text in ) URINALYSIS NONAUTO W/O SCOPE 89709 Leukocytes NEG DateTime(Free Text in ) Review of Systems System Result Effective Dates Constitutional No recent illness 02/06/2017 Constitutional No [...] lips 10/17/2016 None Full Exam - General 1994 Ears/Nose/Throat lips/teeth/gingiva Overall: normal dentition 10/17/2016 None Full Exam - General 1994 Ears/Nose/Throat lips/teeth/gingiva Overall: benign gingiva 10/17/2016 None Full Exam - General 1994 Ears/Nose/Throat lips/teeth/gingiva Overall: no masses 10/17/2016 None [...] 1994 Ears/Nose/Throat oral cavity/pharynx/larynx Hard palate: ulcer 05/19/2014 [...] clear 11/04/2013 None Full Exam - General 1995 Ears/Nose/Throat lips/teeth/gingiva Overall: benign lips 11/04/2013 None Full Exam - General 1994 Ears/Nose/Throat lips/teeth/gingiva Overall: normal dentition 11/04/2013 None Full Exam - General 1995 Ears/Nose/Throat lips/teeth/gingiva Overall: benign gingiva 11/04/2013 None [...] benign 08/05/2013 None Full Exam - General 1995 Ears/Nose/Throat oral cavity/pharynx/larynx Hard palate: ulcer 08/05/2013 [...] tenderness 08/05/2013 None Full Exam - General 1995 Abdomen [...] accomodation 05/22/2013 None Full Exam - General 1995 [...] clubbing 05/22/2013 None Full Exam - General 1994 Cardiovascular auscultation of heart Overall: regular rate 05/22/2013 None Full Exam - General 1994 Cardiovascular auscultation of heart Overall: normal heart sounds 05/22/2013 None Full Exam - General 1994 Cardiovascular auscultation of heart Overall: no murmurs 05/22/2013 None Full Exam - General 1994 Abdomen abdominal exam Overall: no tenderness 05/22/2013 None Full Exam - General 1994 [...] gingiva 02/20/2013 None Full Exam - General 1995 Ears/Nose/Throat lips/teeth/gingiva Overall: no masses 02/20/2013 None [...] accomodation 07/04/2012 None Full Exam - General 1995 Ears/Nose/Throat otoscopic exam Overall: external auditory canals clear 07/04/2012 None Full Exam - General 1995 Ears/Nose/Throat otoscopic exam Overall: tympanic membranes clear 07/04/2012 None Full Exam - General 1994 Ears/Nose/Throat lips/teeth/gingiva Overall: benign lips 07/04/2012 None Full Exam - General 1994 Ears/Nose/Throat lips/teeth/gingiva Overall: normal dentition 07/04/2012 None Full Exam - General 1994 Ears/Nose/Throat lips/teeth/gingiva Overall: benign gingiva 07/04/2012 None [...] lips 12/26/2011 None Full Exam - General 1994 Ears/Nose/Throat lips/teeth/gingiva Overall: normal dentition 12/26/2011 None Full Exam - General 1995 Ears/Nose/Throat lips/teeth/gingiva Overall: benign gingiva 12/26/2011 None Full Exam - General 1994 Ears/Nose/Throat lips/teeth/gingiva Overall: no masses 12/26/2011 None [...] masses 10/26/2011 None Full Exam - General 1995 Ears/Nose/Throat oral cavity/pharynx/larynx Overall: hypopharynx benign 10/26/2011 [...] retractions 05/10/2011 None Full Exam - General 1994 Ears/Nose/Throat lips/teeth/gingiva Overall: benign lips 04/27/2011 None Full Exam - General 1994 Ears/Nose/Throat oral cavity/pharynx/larynx Hard palate: ulcer 04/27/2011 right of midline, in posterior aspect of the hard palate Full Exam - General 1994 Ears/Nose/Throat oral cavity/pharynx/larynx Overall: hypopharynx benign 04/27/2011 [...] clear 04/27/2011 None Full Exam - General 1994 Ears/Nose/Throat otoscopic exam Overall: external auditory canals clear 04/27/2011 None Full Exam - General 1994 Ears/Nose/Throat lips/teeth/gingiva Overall: benign gingiva 04/27/2011 None Full Exam - General 1994 Ears/Nose/Throat lips/teeth/gingiva Overall: no masses 04/27/2011 None [...] Procedures Procedure Codes Date PPPS, SUBSEQ VISIT CPT-4: X0315Qyntxsh 02/06/2017 TRIAMCINOLONE ACET INJ NOS CPT-4: A3329Mfaxbvb 02/03/2017 PAP CPT-4: 9059218Lemkgeq 10/17/2016 ROUTINE VENIPUNCTURE CPT-4: 61359Uwvplus 07/24/2013 ROUTINE VENIPUNCTURE CPT-4: 63006Kpxwfgo 03/13/2013 PRESCRIP TRANSMIT VIA ERX SY CPT-4: R1666Spuwfnf 10/25/2012 ROUTINE VENIPUNCTURE CPT-4: 28429Ggnfiif 07/02/2012 PRESCRIP TRANSMIT VIA ERX SY CPT-4: H0980Zogglxf 12/26/2011 ROUTINE VENIPUNCTURE CPT-4: 78557Krkgplm 10/20/2011 URINALYSIS NONAUTO W/O SCOPE CPT-4: 13351Lsyknyg 09/15/2011 PRESCRIP TRANSMIT VIA ERX SY CPT-4: W9755Dyhpkzg 09/15/2011 ROUTINE VENIPUNCTURE CPT-4: 14564Qoouvrn 06/07/2011 PRESCRIP TRANSMIT VIA ERX SY CPT-4: C8323Xoqzops 04/27/2011 Vital Signs Date Vital 02/06/2017 Blood Pressure 1: 142/84 Code: 8480-6 BMI: 32.1 Code: 48737-3 Heart Rate 1: 76 bpm Height: 5'4" SpO2: 96% Weight: 190 lbs 02/03/2017 Blood Pressure 1: 142/84 Code: 8480-6 BMI: 32.2 Code: 93314-8 Heart Rate 1: 76 bpm Height: 5'4" SpO2: 96% Weight: 190 lbs 8 oz 10/17/2016 Blood Pressure 1: 136/90 Code: 8480-6 BMI: 31.6 Code: 79032-9 Heart Rate 1: 76 bpm Height: 5'4" SpO2: 98% Weight: 187 lbs 07/14/2015 Blood Pressure 1: 150/80 Code: 8480-6 BMI: 31.1 Code: 61315-1 Heart Rate 1: 74 bpm Height: 5'4" SpO2: 95% Weight: 184 lbs 11/17/2014 Blood Pressure 1: 142/88 Code: 8480-6 BMI: 32.3 Code: 29252-2 Heart Rate 1: 72 bpm Height: 5'4" Weight: 191 lbs 05/19/2014 Blood Pressure 1: 136/74 Code: 8480-6 BMI: 32.8 Code: 00221-7 Heart Rate 1: 72 bpm Height: 5'4" Weight: 194 lbs 11/04/2013 Blood Pressure 1: 154/76 Code: 8480-6 BMI: 31.4 Code: 13587-1 Heart Rate 1: 76 bpm Height: 5'4" Weight: 186 lbs 08/05/2013 Blood Pressure 1: 150/78 Code: 8480-6 BMI: 30.9 Code: 22983-9 Heart Rate 1: 60 bpm Height: 5'4" Weight: 183 lbs 05/22/2013 Blood Pressure 1: 156/76 Code: 8480-6 BMI: 31.8 Code: 49531-3 Heart Rate 1: 72 bpm Height: 5'4" Weight: 188 lbs 02/20/2013 Blood Pressure 1: 138/78 Code: 8480-6 BMI: 32.1 Code: 29189-5 Heart Rate 1: 72 bpm Height: 5'4" Weight: 190 lbs 10/25/2012 Blood Pressure 1: 138/82 Code: 8480-6 BMI: 31.8 Code: 13380-7 Heart Rate 1: 72 bpm Height: 5'4" Weight: 188 lbs 07/04/2012 Blood Pressure 1: 136/70 Code: 8480-6 Heart Rate 1: 72 bpm Weight: 187 lbs 12/26/2011 Blood Pressure 1: 152/82 Code: 8480-6 BMI: 30.4 Code: 15763-5 Heart Rate 1: 78 bpm Height: 5'4" Respiratory Rate: 16 bpm Weight: 180 lbs 10/26/2011 Blood Pressure 1: 140/64 Code: 8480-6 Heart Rate 1: 64 bpm Weight: 181 lbs 8 oz 09/15/2011 Blood Pressure 1: 152/82 Code: 8480-6 BMI: 30.8 Code: 98828-6 Heart Rate 1: 60 bpm Height: 5'4" Temperature: 36.8 (C) / 98.3 (F) Weight: 182 lbs 06/07/2011 Blood Pressure 1: 154/80 Code: 8480-6 05/10/2011 Blood Pressure 1: 122/66 Code: 8480-6 BMI: 30.7 Code: 88988-6 Heart Rate 1: 66 bpm Height: 5'4" Respiratory Rate: 12 bpm Weight: 181 lbs 8 oz 04/27/2011 Blood Pressure 1: 136/70 Code: 8480-6 BMI: 30.6 Code: 80686-1 Heart Rate 1: 72 bpm Height: 5'4" Respiratory Rate: 12 bpm Weight: 181 lbs Functional Status No Functional Status data History of Present Illness Symptom Name Status Result Effective Date Notes Annual Medicare Wellness Exam Alcohol Use does [...] data Encounters Encounter Performer Location Codes Date ([id number]) [id number] EST. PATIENT, LEVEL III Diagnosis: Low back pain[ICD10: M54.5] [facility] CPT-4: 79873 02/03/2017 ([id number]) 58016 EST. PATIENT, LEVEL IV Diagnosis: Encounter for gynecological examination (general) (routine) without abnormal findings[ICD10: Z01.419] Tori Abdalla MD [facility] CPT-4: 50953 10/17/2016 [id number] EST. PATIENT, LEVEL III Diagnosis: Low back pain[ICD10: M54.5] Katie Abdalla MD [facility] CPT-4: 92868 07/14/2015 ([id number]) 42958 EST. PATIENT, LEVEL III Diagnosis: ESSENTIAL HYPERTENSION[ICD9: 401.9] Marcela Abdalla MD [facility] CPT- 4: 96330 11/17/2014 ([id number]) 49295 EST. PATIENT, LEVEL III Diagnosis: ESSENTIAL HYPERTENSION[ICD9: 401.9] Diagnosis: HYPERLIPIDEMIA[ICD9: 272.4] Diagnosis: HYPOTHYROIDISM[ICD9: 244.9] Marcela Abdalla MD [facility] CPT-4: 69843 05/19/2014 ([id number]) 05603 EST. PATIENT, LEVEL IV Diagnosis: HYPOTHYROIDISM[ICD9: 244.9] Diagnosis: ESSENTIAL HYPERTENSION[SNOMED: 51117546] Marcela Abdalla MD [facility] CPT-4: 28635 11/04/2013 ([id number]) 20195 EST. PATIENT, LEVEL III Diagnosis: ESSENTIAL HYPERTENSION[SNOMED: 02278295] Marcela Abdalla MD [facility] CPT-4: 25587 08/05/2013 ([id number]) 36695 EST. PATIENT, LEVEL III Diagnosis: ESSENTIAL HYPERTENSION[SNOMED: 54360927] Marcela Abdalla MD [facility] CPT-4: 60362 05/22/2013 ([id number]) 17890 EST. PATIENT, LEVEL III Diagnosis: ESSENTIAL HYPERTENSION[SNOMED: 69661155] Marcela Abdalla MD [facility] CPT-4: 01261 02/20/2013 ([id number]) 61634 EST. PATIENT, LEVEL IV Diagnosis: ESSENTIAL HYPERTENSION[SNOMED: 23121942] Diagnosis: HYPERLIPIDEMIA[ICD9: 272.4] Diagnosis: NONSPECIF SKIN ERUPT NEC[ICD9: 782.1] Marcela Abdalla MD, [facility] CPT-4: 20629 10/25/2012 ([id number]) 21580 EST. PATIENT, LEVEL IV Diagnosis: ESSENTIAL HYPERTENSION[SNOMED: 88398413] Diagnosis: HYPERLIPIDEMIA[ICD9: 272.4] Marcela Abdalla MD [facility] CPT-4: 61629 07/04/2012 ([id number]) 28720 EST. PATIENT, LEVEL IV Diagnosis: ESSENTIAL HYPERTENSION[SNOMED: 66481693] Diagnosis: HYPERLIPIDEMIA[ICD9: 272.4] Marcela Abdalla MD [facility] CPT-4: 06518 12/26/2011 ([id number]) 35886 EST. PATIENT, LEVEL IV Diagnosis: ESSENTIAL HYPERTENSION[SNOMED: 79834265] Diagnosis: HYPERLIPIDEMIA[ICD9: 272.4] Marcela Abdalla MD [facility] CPT-4: 28752 10/26/2011 ([id number]) 14014 EST. PATIENT, LEVEL IV Diagnosis: BPPV (benign paroxysmal positional vertigo)[ICD9: 386.11] Diagnosis: ESSENTIAL HYPERTENSION[SNOMED: 56990058] Tori Abdalla MD, [facility] CPT-4: 85508 09/15/2011 05725 EST. PATIENT, LEVEL III Diagnosis: Lesion of oral mucosa[ICD9: 528.9] Diagnosis: Rash and nonspecific skin eruption[ICD9: 782.1] Marcela Abdalla MD [facility] CPT-4: 17574 05/10/2011 [id number] EST. PATIENT, LEVEL IV Diagnosis: ESSENTIAL HYPERTENSION[SNOMED: 02406744] Diagnosis: Mouth sores[ICD9: 528.9] Marcela Abdalla MD, [facility] CPT-4: 70598 04/27/2011 Plan of Care Planned Activity Notes Codes Status Date Visit Plan: Medicare Exam - today we [...] risk and to maintain independence in the home.Today we discussed the need for the patient to create paperwork for Advanced directives as well as for the patient to provide this office with a copy of her DOP[employer] paperwork for health care surrogate. 02/06/2017 Appointment: Katie Ellis WPtel: [phone] [id number] [place] [address] - Annual Wellness Visit 02/06/2017 Patient Education: [...] the office. 02/03/2017 Appointment: Tori Duvall WPtel: [phone] (30 min) Complex 02/03/2017 Patient Education: [...] the next year, otherwise, RTC yearly or prn.Recommend mammogram 10/17/2016 Appointment: Tori Duvall WPtel: [phone] [phone] [facility] 10/17/2016 Patient Education: Patient Medication Summary Completed 10/17/2016 Patient Education: Obesity Completed 10/17/2016 Visit Plan: Sacroiliitis - back exercises discussed with the patient, pt to continue with anti-inflammatories. Pt is to call if the symptoms do not improve or if they worsen.Low back pain- the patient was instructed in [...] diet. Pt has been encouraged to exercise daily.The pt has been advised to call the office if there are any acute concerns about change in blood pressure readings at home. 11/17/2014 Appointment: Marcel[facility]alla [phone] [facility] Follow [facility] 11/17/2014 Patient Education: Patient Medication Summary Completed 11/17/2014 Patient Education: 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 Completed 11/17/2014 Visit Plan: 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 - well controlled - continue with current medications, continue with no added salt diet. Pt has been encouraged to exercise daily.The pt has been advised to call the office if there are any acute concerns about change in blood pressure readings at home. 05/19/2014 Appointment: Marcel[facility] Abdalla [facility]el[facility] [phone] [facility] Follow [facility] 05/19/2014 Patient Education: Patient Medication Summary Completed 05/19/2014 Patient Education: 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 Completed 05/19/2014 Visit Plan: 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 - well controlled - continue with current medications, continue with no added salt diet. Pt has been encouraged to exercise daily.The pt has been advised to call the [...] control. 11/04/2013 Appointment: Marcela Abdalla [facility]Ptel[facility] [phone] [facility] [place] Follow up 11/04/2013 Patient Education: Patient Medication Summary Completed 11/04/2013 Patient Education: 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 Completed 11/04/2013 Visit Plan: 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 - well controlled - continue with current medications, continue with no added salt diet. Pt has been encouraged to exercise daily.The pt has been advised to call the office if there are any acute concerns about change in blood pressure readings at home. 08/05/2013 Appointment: Marcela Abdalla WPtel: [phone] [facility] Follow up 08/05/2013 Patient Education: Patient Medication Summary Completed 08/05/2013 Patient Education: 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 Completed 08/05/2013 Patient Education: Patient Medication Summary Completed 07/24/2013 Patient Education: 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 Completed 07/24/2013 Visit Plan: 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 - well controlled - continue with current medications, continue with no added salt diet. Pt has been encouraged to exercise daily.The pt has been advised to call the office if there are any acute concerns about change in blood pressure readings at home. 05/22/2013 Appointment: Marcela Abdalla WPtel: [phone] [facility] Follow up 05/22/2013 Patient Education: Patient Medication Summary Completed 05/22/2013 Patient Education: 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 Completed 05/22/2013 Patient Education: Patient Medication Summary Completed 03/13/2013 Patient Education: 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 Completed 03/13/2013 Visit Plan: 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 - well controlled - continue with current medications, continue with no added salt diet. Pt has been encouraged to exercise daily.The pt has been advised to call the office if there are any acute concerns about change in blood pressure readings at home. 02/20/2013 Appointment: Marcela Abdalla WPtel: [phone] [facility] Follow up 02/20/2013 Patient Education: Patient Medication Summary Completed 02/20/2013 Patient Education: 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 Completed 02/20/2013 Visit Plan: 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 - well controlled - continue with current medications, continue with no added salt diet. Pt has been encouraged to exercise daily.The pt has been advised to call the [...] and to assure normal liver response to medications.Rash - rx for clobetasol for pt to use on a continuous basis 10/25/2012 Appointment: Marcela Abdalla WPtel: [facility] Follow up 10/25/2012 Patient Education: Patient Medication Summary Completed 10/25/2012 Patient Education: 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 Completed 10/25/2012 Visit Plan: 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 - well controlled - continue with current medications, continue with no added salt diet. Pt has been encouraged to exercise daily.The pt has been advised to call the [...] to medications. 07/04/2012 Appointment: Marcela Abdalla WPtel: [facility] [facility] Patient Preventative visit 07/04/2012 Patient Education: Patient Medication Summary Completed 07/04/2012 Patient Education: 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 Completed 07/04/2012 Appointment: Marcela Abdalla WPtel: [facility] Lab Draw 07/02/2012 Patient Education: Patient Medication Summary Completed 07/02/2012 Patient Education: High Blood Pressure: Essential 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 Completed 07/02/2012 Visit Plan: 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 - well controlled - continue with current medications, continue with no added salt diet. Pt has been encouraged to exercise daily.The pt has been advised to call the [...] to medications. 12/26/2011 Appointment: Marcela Abdalla WPtel: [phone] [facility] Other 12/26/2011 Patient Education: Patient Medication Summary Completed [...] diet. Pt has been encouraged to exercise daily.The pt has been advised to call the [...] medications. 10/26/2011 Appointment: Marcel[facility]alla [facility]el[phone] [facility] Other 10/26/2011 Patient Education: Patient Medication Summary Completed 10/26/2011 Patient Education: High Blood Pressure: Essential 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 Completed 10/26/2011 Appointment: Marcela [facility]allatel: [phone] [facility] [place] Lab Draw 10/20/2011 Patient Education: Patient [...] successful teaching and manipulation of the said exercises.Nausea-promethazine as needed if unable to tolerate meclinzineHTN- elevted today-monitor blood pressure at home and bring in readings for review at next appt. Call for chest pain, shortness of breath, headache, vision changes. 09/15/2011 Appointment: Tori Duvall WPtel: [phone] [place] Lab Draw 09/15/2011 Patient Education: Patient Medication Summary Completed 09/15/2011 Patient Education: .Amazing charts Paroxysmal positional vertigo Completed 09/15/2011 Patient Education: High Blood Pressure: Essential 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 Completed 09/15/2011 Appointment: Marcela Abdalla WPtel: [facility] [place] Lab Draw 06/07/2011 Patient Education: Patient Medication Summary Completed 06/07/2011 Patient Education: High Blood Pressure: Essential 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 Completed 06/07/2011 Visit Plan: Mouth lesion - appears to be slowly healing, continue with low acid and low salt foods, if the lesion worsens, call clinic.Rash in groin and fadumo- area - previously visualized, continue with diflucan prn for exacerbation of the rash. 05/10/2011 Appointment: Marcela Abdalla WPtel: [facility] [place] Other 05/10/2011 Patient Education: Patient Medication Summary Completed 05/10/2011 Appointment: Marcela Abdalla WPtel: [facility] Follow up 05/04/2011 Visit Plan: HTN- improved from high blood pressure earlier this weekNo change in current medication. 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 Other 04/27/2011 Patient Education: Patient Medication Summary Completed 04/27/2011 Referral: Seth Thorne WPtel: [address], [address] [id number] Referral Relationship Instructions Comment . Mouth lesion - appears to be slowly healing, continue with low acid and low salt foods, if the lesion worsens, call clinic. Rash in groin and fadumo-area - previously visualized, continue with diflucan prn for exacerbation of the rash. . Medicare Exam - today we discussed [...] assure normal liver response to medications. . 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
--- OUTSIDE RECORDS SUMMARY | 2019-01-10 12:28 | XMS REPORT | CCD ---
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 Name Role Phone PP Unavailable CCM Unavailable Summary Purpose Interface Exchange Insurance Providers Payer name Policy type / Coverage type Covered green party ID Effective Begin Date Effective End Date WPS Medicare Part B Medicare Part B [id number] Unknown Unknown [facility] [employer] Medicare Part B [id number] Unknown Unknown Family history Daughter Diagnosis Age [...] Unknown 04/27/2011 Number of children Unknown 4 [id number] 04/27/2011 Employment Unknown Retired 04/27/[address]: 011124816 Never smoker 04/27/[address]: 496948216 Never drinks alcohol 04/27/2011 Has the patient [...] Kenalog 40 mg/mL suspension for injection RxNorm: 4637655 1 Milliliter(s) Inj 02/03/2017 02/03/2017 Inactive Zocor 10 mg tablet RxNorm: 086528 1 Tablet(s) PO daily 05/14/2015 05/13/2015 Inactive Zocor 10 mg tablet RxNorm: 793060 1 Tablet(s) PO daily 05/14/2015 05/06/2016 Inactive Zocor 10 mg tablet RxNorm: 417194 1 Tablet(s) PO daily 05/14/2015 05/07/2016 Inactive dcwjwigx-zhmqyuamr-jymuhaphi 3.5 mg/g-10,000 unit/g-0.5 %topical cream RxNorm: 3312425 3 gtts TOP TID 11/17/2014 11/26/2014 Inactive [SAVINGS FOR NON-COVERED DRUGS -- BIN:[id number], PCN: [id number], Group: [id number], ID# [id number], Questions: . THIS IS NOT INSURANCE.] simvastatin 40 mg tablet RxNorm: 926769 1/2 Tablet(s) PO QHS 10/09/2013 11/03/2013 Inactive Synthroid 25 mcg tablet RxNorm: 739699 1 Tablet(s) PO daily 08/19/2013 11/11/2014 Inactive clobetasol 0.05 % Topical Cream RxNorm: 801135 1 Application TOP TID PRN 04/05/2013 07/03/2013 Inactive nystatin 100,000 unit/gram Topical Powder RxNorm: 679171 Gram(s) TOP apply to affected area as needed 03/22/2013 10/16/2016 Inactive fluconazole 150 mg tablet RxNorm: 979026 1 Tablet(s) PO 03/19/2013 03/18/2013 Inactive take one at outbreak and then use nystatin powder (she has nystatin at home) fluconazole 150 mg tablet RxNorm: 130698 1 Tablet(s) PO 03/19/2013 03/25/2013 Inactive take one at outbreak and then use nystatin powder (she has nystatin at home) simvastatin 40 mg tablet RxNorm: 927903 1/2 Tablet(s) PO QHS 03/18/2013 07/15/2013 Inactive Synthroid 25 mcg tablet RxNorm: 204205 1 Tablet(s) PO daily 03/18/2013 08/14/2013 Inactive clobetasol 0.05 % Topical Cream RxNorm: 097285 1 Application TOP TID PRN 10/25/2012 01/22/2013 Inactive Coreg 3.125 mg tablet RxNorm: 199851 1 Tablet(s) PO BID 04/17/2012 07/03/2012 Inactive Coreg 3.125 mg tablet RxNorm: 227489 1 Tablet(s) PO BID 03/16/2012 04/14/2012 Inactive Diflucan 150 mg Tab RxNorm: 174892 1 Tablet(s) PO daily 12/26/2011 01/22/2012 Inactive simvastatin 40 mg tablet RxNorm: 239513 1/2 Tablet(s) PO QHS 04/27/2011 03/17/2013 Inactive lisinopril 20 mg tablet RxNorm: 974649 1 Tablet(s) PO as needed No Start Date Active coenzyme Q10 oral RxNorm: 19717 oral No Start Date Active Vitamin C Oral RxNorm: Oral No Start Date 10/16/2016 Inactive Synthroid 25 mcg tablet RxNorm: 206438 Tablet(s) PO No Start Date 03/17/2013 Inactive coenzyme Q10 75 mg Cap RxNorm: 466470 1 Capsule(s) PO daily No Start Date 10/16/2016 Inactive Coreg 3.125 mg tablet RxNorm: 174504 1 Tablet(s) PO BID No Start Date 03/15/2012 Inactive simvastatin 40 mg Tab RxNorm: 125782 1 Tablet(s) PO QHS No Start Date 04/26/2011 Inactive aspirin 81 mg capsule,delayed release RxNorm: 089165 1 Capsule(s) PO daily No Start Date 10/16/2016 Inactive metoprolol succinate ER 50 mg tablet,extended release 24 hr RxNorm: 463758 1 Tablet(s) PO daily No Start Date 10/16/2016 Inactive Bystolic 5 mg Tab RxNorm: 940906 1 Tablet(s) PO daily No Start Date 10/30/2011 Inactive clobetasol 0.05 % Topical Cream RxNorm: 334675 TOP No Start Date 10/24/2012 Inactive omega-3 fatty acids 1,250 mg Cap RxNorm: 4470552 1 Capsule(s) PO daily No Start Date 10/16/2016 Inactive meclizine 12.5 mg Tab RxNorm: 207485 1/2-1 Tablet(s) PO Q6 PRN No Start Date 05/18/2014 Inactive promethazine 25 mg Rectal Suppository RxNorm: 977309 1 Suppository RTL Q6 PRN No Start Date 07/03/2012 Inactive nystatin 100,000 unit/gram Topical Powder RxNorm: 466855 Gram(s) TOP apply to affected area as needed No Start Date 03/21/2013 Inactive Medication Administered Medication Codes Instructions Start Date Status Kenalog 40 mg/mL suspension for injection RxNorm: 7799869 1Milliliter 02/03/2017 No longer Active Immunizations Vaccine [...] 31.1 pg 10/28/2016 Cbc With Differential Ord2 Bland% 11.9 % 10/28/2016 Cbc With Differential Ord2 Eos% 4.8 % 10/28/2016 Cbc With Differential Ord2 MCHC 32.7 pg 10/28/2016 Cbc With Differential Ord2 PLT 300 K/ul 10/28/2016 Cbc With Differential Ord2 Baso% 1.0 % 10/28/2016 Cbc With Differential Ord2 RDW 15.1 % 10/28/2016 Cbc With Differential Ord2 Neut ABS# 2.00 K/ul 10/28/2016 Cbc With Differential Ord2 Lymph ABS# 2.07 K/ul 10/28/2016 Cbc With Differential Ord2 Bland ABS# 0.6 K/ul 10/28/2016 Cbc With Differential Ord2 Eos ABS# 0.2 K/ul 10/28/2016 Cbc With Differential Ord2 Baso ABS# 0.1 K/ul 10/28/2016 Tsh Ord6 hTSH II 2.77 uIU/mL 10/28/2016 Comp Metabolic Dcd858 NA 138 mEq/L 10/28/2016 Comp Metabolic Vvs886 K 4.6 mEq/L 10/28/2016 Comp Metabolic Nuq863 CL 104 mEq/L 10/28/2016 Comp Metabolic Vca600 CO2 29.0 mEq/L 10/28/2016 Comp Metabolic Aun253 ANION GAP 10 10/28/2016 Comp Metabolic Bdh218 GLUCOSE 88 mg/dL 10/28/2016 Comp Metabolic Xuq171 Creat 0.9 mg/dL 10/28/2016 Comp Metabolic Yxx077 eGFR 60 ml/min/1.73m2 10/28/2016 Comp Metabolic Qsp418 BUN 27 mg/dL 10/28/2016 Comp Metabolic Ziu238 B/C Ratio 28.7 Ratio 10/28/2016 Comp Metabolic Fjc155 CALCIUM 9.7 mg/dL 10/28/2016 Comp Metabolic Imm694 ALK PHOS 58 U/L 10/28/2016 Comp Metabolic Zhj170 AST(SGOT) 20 U/L 10/28/2016 Comp Metabolic Uwk312 ALT(SGPT) 14 U/L 10/28/2016 Comp Metabolic Qlm870 BILI T 0.6 mg/dL 10/28/2016 Comp Metabolic Niz488 ALBUMIN 3.6 g/dL 10/28/2016 Comp Metabolic Eas616 TPRO 6.3 g/dL 10/28/2016 Comp Metabolic Zda843 GLOB 2.7 g/dL 10/28/2016 Comp Metabolic Bbn322 A/G Ratio 1.3 Ratio 10/28/2016 Comp Metabolic Liv965 Osmo 280 mOsmo 10/28/2016 LIPID GRP HDL TEST 60 MG/DL 05/13/2015 LIPID GRP TRIG 100 MG/DL 05/13/2015 LIPID GRP TEST LDL 190 MG/DL 05/13/2015 LIPID GRP CHOL 270 MG/DL 05/13/2015 LIPID GRP RCHOL/HDL 4.50 RATIO 05/13/2015 LIPID GRP NON-HDL CH 210 MG/DL 05/13/2015 LIVER PNL 7510454 AST 29 U/L 05/13/2015 LIVER PNL 0710564 ALK PHOS 70 U/L 05/13/2015 LIVER PNL 3160926 BILI TOT 0.5 MG/DL 05/13/2015 LIVER PNL 4800693 ALT 27 IU/L 05/13/2015 LIVER PNL 0933196 BILI DIR 0.1 MG/DL 05/13/2015 LIVER PNL 6122599 ALBUMIN 3.8 GM/DL 05/13/2015 LIVER PNL 5710309 PROT TOT 7.3 GM/DL 05/13/2015 TSH 1767972 TSH 3.354 uIU/ML 07/24/2013 LIPID GRP HDL TEST 46 MG/DL 07/24/2013 LIPID GRP TRIG 86 MG/DL 07/24/2013 LIPID GRP TEST LDL 113 MG/DL 07/24/2013 LIPID GRP CHOL 176 MG/DL 07/24/2013 LIPID GRP 6329615 RCHOL/HDL 3.83 RATIO 07/24/2013 CHEM 14 1494155 AST 25 U/L 07/24/2013 CHEM 14 5669723 ALT 20 IU/L 07/24/2013 CHEM 14 7139760 BUN 18 MG/DL 07/24/2013 CHEM 14 3015718 ALBUMIN 4.0 GM/DL 07/24/2013 CHEM 14 8789642 CHLORIDE 105 MMOL/L 07/24/2013 CHEM 14 2833677 BILI TOT 0.4 MG/DL 07/24/2013 CHEM 14 5543272 ALK PHOS 57 U/L 07/24/2013 CHEM 14 2941284 SODIUM 139 MMOL/L 07/24/2013 CHEM 14 7064777 CREATININE 0.83 MG/DL 07/24/2013 CHEM 14 8121068 CALCIUM 10.0 MG/DL 07/24/2013 CHEM 14 6546970 POTASSIUM 4.5 MMOL/L 07/24/2013 CHEM 14 8816835 PROT TOT 6.3 GM/DL 07/24/2013 CHEM 14 5394424 GLUCOSE 91 MG/DL 07/24/2013 CHEM 14 5883028 BICARB 28 MMOL/L 07/24/2013 CHEM 14 7245493 ANION GAP 6 MEQ/L 07/24/2013 FREE T4 9589878 FREE T4 1.17 NG/DL 07/24/2013 GFR CALC 0889054 GFR AA >60 ML/MIN 07/24/2013 GFR CALC 1116500 GFR NON-AA >60 ML/MIN 07/24/2013 CBC 8563380 WBC 5.7 10e9/L 07/24/2013 CBC 3802083 RBC 4.39 10e12/L 07/24/2013 CBC 4131640 HGB 13.6 g/dL 07/24/2013 CBC 7331121 HCT DET 41.7 % 07/24/2013 CBC 5718931 MCV 95.0 fL 07/24/2013 CBC 6627205 MCH 31.0 pg 07/24/2013 CBC 8699367 MCHC 32.6 g/dL 07/24/2013 CBC 9328522 PLT 341 10e9/L 07/24/2013 CBC 7559309 MPV 9.7 fL 07/24/2013 CBC 9026252 RORO % 37.9 % 07/24/2013 CBC 6628671 LY % 38.1 % 07/24/2013 CBC 2823727 MON % 12.0 % 07/24/2013 CBC 8491748 EOS % 9.9 % 07/24/2013 CBC 4916814 BASO % 2.1 % 07/24/2013 CBC 6422136 RDW 14.1 % 07/24/2013 CBC 0554654 ABS RORO 2.16 10e9/L 07/24/2013 CBC 2419276 ABS LYMPH 2.17 10e9/L 07/24/2013 CBC 1706353 ABS MONO 0.68 10e9/L 07/24/2013 CBC 9944342 ABS EOS 0.56 10e9/L 07/24/2013 CBC 9899469 ABS BASO 0.12 10e9/L 07/24/2013 CBC 5888307 RDW-SD 47.2 fL 07/24/2013 FREE T4 4624332 FREE T4 0.97 NG/DL 03/14/2013 TSH 7333649 TSH 6.175 uIU/ML 03/13/2013 LIPID GRP HDL TEST 51 MG/DL 03/13/2013 LIPID GRP TRIG 182 MG/DL 03/13/2013 LIPID GRP TEST LDL 191 MG/DL 03/13/2013 LIPID GRP CHOL 278 MG/DL 03/13/2013 LIPID GRP RCHOL/HDL 5.45 RATIO 03/13/2013 CHEM 14 2997484 AST 23 U/L 03/13/2013 CHEM 14 1063426 ALT 18 IU/L 03/13/2013 CHEM 14 7550428 BUN 21 MG/DL 03/13/2013 CHEM 14 4002203 ALBUMIN 4.1 GM/DL 03/13/2013 CHEM 14 3400458 CHLORIDE 107 MMOL/L 03/13/2013 CHEM 14 0423106 BILI TOT 0.4 MG/DL 03/13/2013 CHEM 14 2755021 ALK PHOS 57 U/L 03/13/2013 CHEM 14 4162733 SODIUM 140 MMOL/L 03/13/2013 CHEM 14 2287437 CREATININE 0.94 MG/DL 03/13/2013 CHEM 14 1203512 CALCIUM 9.8 MG/DL 03/13/2013 CHEM 14 5750245 POTASSIUM 4.4 MMOL/L 03/13/2013 CHEM 14 5671837 PROT TOT 6.1 GM/DL 03/13/2013 CHEM 14 9377879 GLUCOSE 90 MG/DL 03/13/2013 CHEM 14 5199468 BICARB 27 MMOL/L 03/13/2013 CHEM 14 7149895 ANION GAP 6 MEQ/L 03/13/2013 GFR CALC 1232002 GFR AA >60 ML/MIN 03/13/2013 GFR CALC 0145972 GFR NON-AA 57.0L ML/MIN 03/13/2013 CBC 2063581 WBC 4.9 10e9/L 07/02/2012 CBC 8433120 RBC 4.20 10e12/L 07/02/2012 CBC 3215010 HGB 13.3 g/dL 07/02/2012 CBC 1182747 HCT DET 40.2 % 07/02/2012 CBC 0398193 MCV 95.7 fL 07/02/2012 CBC 4050903 MCH 31.7 pg 07/02/2012 CBC 7086635 MCHC 33.1 g/dL 07/02/2012 CBC 9132445 PLT 317 10e9/L 07/02/2012 CBC 4397956 MPV 10.3 fL 07/02/2012 CBC 6577746 RORO % 40.1 % 07/02/2012 CBC 5579254 LY % 42.8 % 07/02/2012 CBC 8137703 MON % 12.0 % 07/02/2012 CBC 9474650 EOS % 4.3 % 07/02/2012 CBC 4622839 BASO % 0.8 % 07/02/2012 CBC 3408004 RDW 13.9 % 07/02/2012 CBC 1325327 ABS RORO 1.96 10e9/L 07/02/2012 CBC 3948974 ABS LYMPH 2.10 10e9/L 07/02/2012 CBC 7234127 ABS MONO 0.59 10e9/L 07/02/2012 CBC 0960220 ABS EOS 0.21 10e9/L 07/02/2012 CBC 1694722 ABS BASO 0.04 10e9/L 07/02/2012 CBC 5044091 RDW-SD 47.3 fL 07/02/2012 CHEM 14 4280911 AST 23 U/L 07/02/2012 CHEM 14 9614036 ALT 20 IU/L 07/02/2012 CHEM 14 5139097 BUN 14 MG/DL 07/02/2012 CHEM 14 5931133 ALBUMIN 3.8 GM/DL 07/02/2012 CHEM 14 6431253 CHLORIDE 108 MMOL/L 07/02/2012 CHEM 14 2529759 BILI TOT 0.4 MG/DL 07/02/2012 CHEM 14 7234306 ALK PHOS 66 U/L 07/02/2012 CHEM 14 0302502 SODIUM 143 MMOL/L 07/02/2012 CHEM 14 9058903 CREATININE 0.88 MG/DL 07/02/2012 CHEM 14 8687461 CALCIUM 9.7 MG/DL 07/02/2012 CHEM 14 1766098 POTASSIUM 4.6 MMOL/L 07/02/2012 CHEM 14 6473369 PROT TOT 6.4 GM/DL 07/02/2012 CHEM 14 2499692 GLUCOSE 87 MG/DL 07/02/2012 CHEM 14 4991802 BICARB 28 MMOL/L 07/02/2012 CHEM 14 5433338 ANION GAP 7 MEQ/L 07/02/2012 GFR CALC 8832571 GFR AA >60 ML/MIN 07/02/2012 GFR CALC 3112917 GFR NON-AA >60 ML/MIN 07/02/2012 FREE T4 6443095 FREE T4 1.10 NG/DL 07/02/2012 TSH 5030192 TSH 2.909 uIU/ML 07/02/2012 LIPID GRP HDL TEST 54 MG/DL 07/02/2012 LIPID GRP TRIG 102 MG/DL 07/02/2012 LIPID GRP TEST LDL 109 MG/DL 07/02/2012 LIPID GRP CHOL 183 MG/DL 07/02/2012 LIPID GRP RCHOL/HDL 3.39 RATIO 07/02/2012 URINALYSIS NONAUTO W/O SCOPE 50537 Specific [place] 1.005 DateTime(Free Text in Aprima) URINALYSIS NONAUTO W/O SCOPE 53353 PH 5.0 DateTime(Free Text in Aprima) URINALYSIS NONAUTO W/O SCOPE 93524 GLUCOSE NEG DateTime(Free Text in Aprima) URINALYSIS NONAUTO W/O SCOPE 79426 Protein NEG DateTime(Free Text in Aprima) URINALYSIS NONAUTO W/O SCOPE 49389 Blood NEG DateTime(Free Text in Aprima) URINALYSIS NONAUTO W/O SCOPE 09461 Bilirubin NEG DateTime(Free Text in Aprima) URINALYSIS NONAUTO W/O SCOPE 85576 Ketones NEG DateTime(Free Text in Aprima) URINALYSIS NONAUTO W/O SCOPE 49937 Urobilinogen NEG DateTime(Free Text in Aprima) URINALYSIS NONAUTO W/O SCOPE 23234 Nitrite NEG DateTime(Free Text in ) URINALYSIS NONAUTO W/O SCOPE 80041 Leukocytes NEG DateTime(Free Text in ) Review [...] Procedure Codes Date PPPS, SUBSEQ VISIT CPT-4: B7471Vpttrna 02/06/2017 TRIAMCINOLONE ACET INJ NOS CPT-4: T5523Egmictu 02/03/2017 PAP CPT-4: 7872140Ostaaft 10/17/2016 ROUTINE VENIPUNCTURE CPT-4: 62105Uubmxrv 07/24/2013 ROUTINE VENIPUNCTURE CPT-4: 46230Zeyjgxn 03/13/2013 PRESCRIP TRANSMIT VIA ERX SY CPT-4: K4017Jgytnts 10/25/2012 ROUTINE VENIPUNCTURE CPT-4: 01834Mjnkvfd 07/02/2012 PRESCRIP TRANSMIT VIA ERX SY CPT-4: V7053Ztvxwzl 12/26/2011 ROUTINE VENIPUNCTURE CPT-4: 81282Zejoric 10/20/2011 URINALYSIS NONAUTO W/O SCOPE CPT-4: 56641Xmzonxr 09/15/2011 PRESCRIP TRANSMIT VIA ERX SY CPT-4: R7783Ogljsmm 09/15/2011 ROUTINE VENIPUNCTURE CPT-4: 61711Rsypkkz 06/07/2011 PRESCRIP TRANSMIT VIA ERX SY CPT-4: G6146Cbelcyb 04/27/2011 Vital Signs Date Vital 02/06/2017 Blood Pressure 1: 142/84 Code: 8480-6 BMI: 32.1 Code: 48783-2 Heart Rate 1: 76 bpm Height: 5'4" SpO2: 96% Weight: 190 lbs 02/03/2017 Blood Pressure 1: 142/84 Code: 8480-6 BMI: 32.2 Code: 97217-1 Heart Rate 1: 76 bpm Height: 5'4" SpO2: 96% Weight: 190 lbs 8 oz 10/17/2016 Blood Pressure 1: 136/90 Code: 8480-6 BMI: 31.6 Code: 07625-9 Heart Rate 1: 76 bpm Height: 5'4" SpO2: 98% Weight: 187 lbs 07/14/2015 Blood Pressure 1: 150/80 Code: 8480-6 BMI: 31.1 Code: 91862-9 Heart Rate 1: 74 bpm Height: 5'4" SpO2: 95% Weight: 184 lbs 11/17/2014 Blood Pressure 1: 142/88 Code: 8480-6 BMI: 32.3 Code: 62861-8 Heart Rate 1: 72 bpm Height: 5'4" Weight: 191 lbs 05/19/2014 Blood Pressure 1: 136/74 Code: 8480-6 BMI: 32.8 Code: 20562-0 Heart Rate 1: 72 bpm Height: 5'4" Weight: 194 lbs 11/04/2013 Blood Pressure 1: 154/76 Code: 8480-6 BMI: 31.4 Code: 30824-4 Heart Rate 1: 76 bpm Height: 5'4" Weight: 186 lbs 08/05/2013 Blood Pressure 1: 150/78 Code: 8480-6 BMI: 30.9 Code: 60962-9 Heart Rate 1: 60 bpm Height: 5'4" Weight: 183 lbs 05/22/2013 Blood Pressure 1: 156/76 Code: 8480-6 BMI: 31.8 Code: 90412-9 Heart Rate 1: 72 bpm Height: 5'4" Weight: 188 lbs 02/20/2013 Blood Pressure 1: 138/78 Code: 8480-6 BMI: 32.1 Code: 01351-6 Heart Rate 1: 72 bpm Height: 5'4" Weight: 190 lbs 10/25/2012 Blood Pressure 1: 138/82 Code: 8480-6 BMI: 31.8 Code: 10772-1 Heart Rate 1: 72 bpm Height: 5'4" Weight: 188 lbs 07/04/2012 Blood Pressure 1: 136/70 Code: 8480-6 Heart Rate 1: 72 bpm Weight: 187 lbs 12/26/2011 Blood Pressure 1: 152/82 Code: 8480-6 BMI: 30.4 Code: 47942-8 Heart Rate 1: 78 bpm Height: 5'4" Respiratory Rate: 16 bpm Weight: 180 lbs 10/26/2011 Blood Pressure 1: 140/64 Code: 8480-6 Heart Rate 1: 64 bpm Weight: 181 lbs 8 oz 09/15/2011 Blood Pressure 1: 152/82 Code: 8480-6 BMI: 30.8 Code: 21675-4 Heart Rate 1: 60 bpm Height: 5'4" Temperature: 36.8 (C) / 98.3 (F) Weight: 182 lbs 06/07/2011 Blood Pressure 1: 154/80 Code: 8480-6 05/10/2011 Blood Pressure 1: 122/66 Code: 8480-6 BMI: 30.7 Code: 87473-2 Heart Rate 1: 66 bpm Height: 5'4" Respiratory Rate: 12 bpm Weight: 181 lbs 8 oz 04/27/2011 Blood Pressure 1: 136/70 Code: 8480-6 BMI: 30.6 Code: 44395-2 Heart Rate 1: 72 bpm Height: 5'4" [...] data Encounters Encounter Performer Location Codes Date ([id number]) 97609 EST. PATIENT, LEVEL III Diagnosis: Low back pain[ICD10: M54.5] [facility] CPT-4: 19253 02/03/2017 ([id number]) 82557 EST. PATIENT, LEVEL IV Diagnosis: Encounter for gynecological examination (general) (routine) without abnormal findings[ICD10: Z01.419] Tori Abdalla MD [facility] CPT-4: 06084 10/17/2016 [id number] EST. PATIENT, LEVEL III Diagnosis: Low back pain[ICD10: M54.5] Katie Abdalla MD [facility] CPT-4: 15813 07/14/2015 ([id number]) 95323 EST. PATIENT, LEVEL III Diagnosis: ESSENTIAL HYPERTENSION[ICD9: 401.9] Marcela Abdalla MD [facility] CPT- 4: 03945 11/17/2014 ([id number]) 66701 EST. PATIENT, LEVEL III Diagnosis: ESSENTIAL HYPERTENSION[ICD9: 401.9] Diagnosis: HYPERLIPIDEMIA[ICD9: 272.4] Diagnosis: HYPOTHYROIDISM[ICD9: 244.9] Marcela Abdalla MD [facility] CPT-4: 31133 05/19/2014 ([id number]) 61816 EST. PATIENT, LEVEL IV Diagnosis: HYPOTHYROIDISM[ICD9: 244.9] Diagnosis: ESSENTIAL HYPERTENSION[SNOMED: 44438835] Marcela Abdalla MD [facility] CPT-4: 94722 11/04/2013 ([id number]) 65516 EST. PATIENT, LEVEL III Diagnosis: ESSENTIAL HYPERTENSION[SNOMED: 25682927] Marcela Abdalla MD [facility] CPT-4: 92582 08/05/2013 ([id number]) 17173 EST. PATIENT, LEVEL III Diagnosis: ESSENTIAL HYPERTENSION[SNOMED: 68035226] Marcela Abdalla MD [facility] CPT-4: 16657 05/22/2013 ([id number]) 59044 EST. PATIENT, LEVEL III Diagnosis: ESSENTIAL HYPERTENSION[SNOMED: 73206421] Marcela Abdalla MD [facility] CPT-4: 93210 02/20/2013 ([id number]) 69513 EST. PATIENT, LEVEL IV Diagnosis: ESSENTIAL HYPERTENSION[SNOMED: 47872925] Diagnosis: HYPERLIPIDEMIA[ICD9: 272.4] Diagnosis: NONSPECIF SKIN ERUPT NEC[ICD9: 782.1] Marcela Abdalla MD, [facility] CPT-4: 34250 10/25/2012 ([id number]) 31592 EST. PATIENT, LEVEL IV Diagnosis: ESSENTIAL HYPERTENSION[SNOMED: 05909268] Diagnosis: HYPERLIPIDEMIA[ICD9: 272.4] Marcela Abdalla MD [facility] CPT-4: 51365 07/04/2012 ([id number]) 54367 EST. PATIENT, LEVEL IV Diagnosis: ESSENTIAL HYPERTENSION[SNOMED: 13920485] Diagnosis: HYPERLIPIDEMIA[ICD9: 272.4] Marcela Abdalla MD [facility] CPT-4: 19723 12/26/2011 ([id number]) 31120 EST. PATIENT, LEVEL IV Diagnosis: ESSENTIAL HYPERTENSION[SNOMED: 31482132] Diagnosis: HYPERLIPIDEMIA[ICD9: 272.4] Marcela Abdalla MD [facility] CPT-4: 95393 10/26/2011 ([id number]) 50519 EST. PATIENT, LEVEL IV Diagnosis: BPPV (benign paroxysmal positional vertigo)[ICD9: 386.11] Diagnosis: ESSENTIAL HYPERTENSION[SNOMED: 29912834] Tori Abdalla MD, [facility] CPT-4: 42784 09/15/2011 14319 EST. PATIENT, LEVEL III Diagnosis: Lesion of oral mucosa[ICD9: 528.9] Diagnosis: Rash and nonspecific skin eruption[ICD9: 782.1] Marcela bAdalla MD [facility] CPT-4: 79281 05/10/2011 34327 EST. PATIENT, LEVEL IV Diagnosis: ESSENTIAL HYPERTENSION[SNOMED: 83943294] Diagnosis: Mouth sores[ICD9: 528.9] Marcela Abdalla MD, [facility] CPT-4: 64748 04/27/2011 Plan of Care Planned Activity Notes [...] DOPA paperwork for health care surrogate. 02/06/2017 Patient Education: Patient Medication Summary Completed [...] the office. 02/03/2017 Appointment: Tori Duvall WPtel: [phone] [phone] (30 min) Complex 02/03/2017 Patient Education: Patient [...] prn.Recommend mammogram 10/17/2016 Appointment: Tori Duvall WPtel: [phone] [facility] 10/17/2016 Patient Education: Patient Medication [...] home. 11/17/2014 Appointment: Marcela Abdalla WPtel: [phone] [facility] Follow up 11/17/2014 Patient Education: Patient Medication [...] at home. 05/19/2014 Appointment: Marcela Abdalla WPtel: [phone] [facility] Follow up 05/19/2014 Patient Education: Patient Medication [...] control. 11/04/2013 Appointment: Marcela Abdalla WPtel: [phone] [facility] Follow up 11/04/2013 Patient Education: Patient Medication [...] home. 08/05/2013 [phone] [facility] 08/05/2013 Patient Education: Patient Medication [...] at home. 05/22/2013 Appointment: [facility] [phone] [facility] Follow [facility] 05/22/2013 Patient Education: Patient Medication [...] home. 02/20/2013 App[facility]ment[phone] [facility] 02/20/2013 Patient Education: Patient Medication [...] continuous basis 10/25/2012 App[facility]ment: [phone] [facility] [facility] 10/25/2012 Patient Education: Patient Medication [...] to medications. 07/04/2012 App[facility]ment: [phone] [facility] Established Patient Preventative visit 07/04/2012 Patient Education: Patient Medication Summary Completed 07/04/2012 Patient Education: 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 Completed 07/04/2012 Appointment: [phone] [facility] [facility] 07/02/2012 Patient Education: Patient Medication [...] medications. 12/26/2011 Appointment: [phone] [facility] [place] Other 12/26/2011 Patient Education: Patient Medication Summary [...] medications. 10/26/2011 Appointment: [phone] [facility] Other 10/26/2011 Patient Education: Patient Medication Summary Completed 10/26/2011 Patient Education: High Blood Pressure: Essential 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 Completed 10/26/2011 Appointment: [phone] [facility] [place] Lab Draw 10/20/2011 Patient Education: Patient [...] vision changes. 09/15/2011 Appointment: Tori Duvall WPtel: [phone] [place] Lab Draw 09/15/2011 Patient Education: Patient Medication Summary Completed 09/15/2011 Patient Education: .Amazing charts Paroxysmal positional vertigo Completed 09/15/2011 Patient Education: High Blood Pressure: Essential 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 Completed 09/15/2011 Appointment: Marcela Abdalla WPtel: [facility] [place] Lab Draw 06/07/2011 Patient Education: Patient [...] the rash. 05/10/2011 Appointment: Marcela Abdalla WPtel: [facility] [place] Other 05/10/2011 Patient Education: Patient Medication Summary Completed 05/10/2011 Appointment: Marcela Abdalla WPtel: [address] [place], [place] [phone] [place] Follow up 05/04/2011 Visit Plan: HTN- improved from high blood pressure earlier this weekNo change in current medication. Try to avoid high salt containing foods.biofreeze to neckCarly at A [place] [employer] TIME- a beauty salon on [address] is a massage therapist to call about a deep tissue massageRETURN TO CLINIC NEXT WEEK FOR DR TO TAKE A QUICK LOOK AT YOUR MOUTH 04/27/2011 Appointment: Lianne Marcela WPtel[facility] [id number] [id number] [place] Other 04/27/2011 Patient Education: Patient Medication Summary Completed 04/27/2011 Referral: Seth Thorne WPtel: [place] [id number] [facility], [address] [id number] [place] Referral Relationship Instructions Comment . Mouth lesion [...] at A HEAD [employer] ITS TIME- a [employer] salon on [address] is a massage therapist to call about a deep tissue massage RETURN TO CLINIC NEXT WEEK FOR DR TO TAKE A QUICK LOOK AT YOUR MOUTH
[2019-01-10] MEDS ORDERED: ANCEF 2 GM/NS 50 ML IVPB IV ONE (12:30)
[2019-01-10] MEDS ORDERED: CATHETER FLUSH 10 ML SYR IV PRN (12:30)
--- OUTSIDE RECORDS SUMMARY | 2019-01-10 12:30 | XMS REPORT | CCD ---
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 Name Role Phone PP Unavailable CCM Unavailable Summary Purpose Interface Exchange Insurance Providers Payer name Policy type / Coverage type Covered alliance party ID Effective Begin Date Effective End Date WPS Medicare Part B Medicare Part B [id number] Unknown Unknown [facility] INSUR Medicare Part B [id number] Unknown Unknown Family history Mother Diagnosis Age At Onset Heart disease Unknown 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 Unknown Sister Diagnosis Age At Onset Cancer Unknown Father Diagnosis Age At Onset 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 Unknown Stroke Unknown Grandfather Diagnosis Age At Onset Breast cancer Unknown Sister Diagnosis Age At Onset Cancer Unknown Social History Social History Element Codes Description Effective Dates Marital status Unknown 04/27/2011 Number of children Unknown 4 [id number] 04/27/2011 Employment Unknown Retired 04/27/[address]: 257060393 Never smoker 04/27/[address]: 546953089 Never drinks alcohol 04/27/2011 Has the patient ever used illegal drugs? Unknown Has never used illegal drugs 04/27/2011 Allergies, Adverse Reactions, Alerts Allergies, Adverse Reactions, Alerts data not found Past Medical History Illness Codes Condition Status Onset Date Resolved Date Low back pain ICD-9: 724.2 ICD-10: M54.5 [...] Problems Condition Codes Effective Dates Condition Status Low back pain ICD-9: 724.2 ICD-10: M54.5 [...] Kenalog 40 mg/mL suspension for injection RxNorm: 5900003 1 Milliliter(s) Inj 02/03/2017 02/03/2017 Inactive Zocor 10 mg tablet RxNorm: 472232 1 Tablet(s) PO daily 05/14/2015 05/13/2015 Inactive Zocor 10 mg tablet RxNorm: 699136 1 Tablet(s) PO daily 05/14/2015 05/06/2016 Inactive Zocor 10 mg tablet RxNorm: 458410 1 Tablet(s) PO daily 05/14/2015 05/07/2016 Inactive sttnncmn-fhqjdyqjx-wjlqbyaqm 3.5 mg/g-10,000 unit/g-0.5 %topical cream RxNorm: 4596938 3 gtts TOP TID 11/17/2014 11/26/2014 Inactive [SAVINGS FOR NON-COVERED DRUGS -- BIN:[id number], PCN: [id number], Group: XXXXX, ID# [id number], Questions: . THIS IS NOT INSURANCE.] simvastatin 40 mg tablet RxNorm: 777005 1/2 Tablet(s) PO QHS 10/09/2013 11/03/2013 Inactive Synthroid 25 mcg tablet RxNorm: 172534 1 Tablet(s) PO daily 08/19/2013 11/11/2014 Inactive clobetasol 0.05 % Topical Cream RxNorm: 905060 1 Application TOP TID PRN 04/05/2013 07/03/2013 Inactive nystatin 100,000 unit/gram Topical Powder RxNorm: 240116 Gram(s) TOP apply to affected area as needed 03/22/2013 10/16/2016 Inactive fluconazole 150 mg tablet RxNorm: 891019 1 Tablet(s) PO 03/19/2013 03/18/2013 Inactive take one at outbreak and then use nystatin powder (she has nystatin at home) fluconazole 150 mg tablet RxNorm: 147971 1 Tablet(s) PO 03/19/2013 03/25/2013 Inactive take one at outbreak and then use nystatin powder (she has nystatin at home) simvastatin 40 mg tablet RxNorm: 268555 1/2 Tablet(s) PO QHS 03/18/2013 07/15/2013 Inactive Synthroid 25 mcg tablet RxNorm: 420021 1 Tablet(s) PO daily 03/18/2013 08/14/2013 Inactive clobetasol 0.05 % Topical Cream RxNorm: 531320 1 Application TOP TID PRN 10/25/2012 01/22/2013 Inactive Coreg 3.125 mg tablet RxNorm: 895461 1 Tablet(s) PO BID 04/17/2012 07/03/2012 Inactive Coreg 3.125 mg tablet RxNorm: 798930 1 Tablet(s) PO BID 03/16/2012 04/14/2012 Inactive Diflucan 150 mg Tab RxNorm: 740930 1 Tablet(s) PO daily 12/26/2011 01/22/2012 Inactive simvastatin 40 mg tablet RxNorm: 822518 1/2 Tablet(s) PO QHS 04/27/2011 03/17/2013 Inactive lisinopril 20 mg tablet RxNorm: 435804 1 Tablet(s) PO as needed No Start Date Active coenzyme Q10 oral RxNorm: 39012 oral No Start Date Active Vitamin C Oral RxNorm: Oral No Start Date 10/16/2016 Inactive Synthroid 25 mcg tablet RxNorm: 256628 Tablet(s) PO No Start Date 03/17/2013 Inactive coenzyme Q10 75 mg Cap RxNorm: 498798 1 Capsule(s) PO daily No Start Date 10/16/2016 Inactive Coreg 3.125 mg tablet RxNorm: 838217 1 Tablet(s) PO BID No Start Date 03/15/2012 Inactive simvastatin 40 mg Tab RxNorm: 502838 1 Tablet(s) PO QHS No Start Date 04/26/2011 Inactive aspirin 81 mg capsule,delayed release RxNorm: 824916 1 Capsule(s) PO daily No Start Date 10/16/2016 Inactive metoprolol succinate ER 50 mg tablet,extended release 24 hr RxNorm: 946087 1 Tablet(s) PO daily No Start Date 10/16/2016 Inactive Bystolic 5 mg Tab RxNorm: 272622 1 Tablet(s) PO daily No Start Date 10/30/2011 Inactive clobetasol 0.05 % Topical Cream RxNorm: 006716 TOP No Start Date 10/24/2012 Inactive omega-3 fatty acids 1,250 mg Cap RxNorm: 7284598 1 Capsule(s) PO daily No Start Date 10/16/2016 Inactive meclizine 12.5 mg Tab RxNorm: 345632 1/2-1 Tablet(s) PO Q6 PRN No Start Date 05/18/2014 Inactive promethazine 25 mg Rectal Suppository RxNorm: 364132 1 Suppository RTL Q6 PRN No Start Date 07/03/2012 Inactive nystatin 100,000 unit/gram Topical Powder RxNorm: 619986 Gram(s) TOP apply to affected area as needed No Start Date 03/21/2013 Inactive Medication Administered Medication Codes Instructions Start Date Status Kenalog 40 mg/mL suspension for injection RxNorm: 2526926 1Milliliter 02/03/2017 No longer Active Immunizations Vaccine Codes Date Status Influenza CVX: 141 05/22/2013 completed Assessments Condition Codes Effective Dates Low back pain ICD-10: M54.5 ICD-9: 724.2 [...] Visit Reason For Visit Effective Dates Notes back pain 02/03/2017 well woman exam (65+ [...] 13.1 g/dl 10/28/2016 Cbc With Differential Ord2 Neut% 40.5 % 10/28/2016 Cbc With Differential Ord2 HCT 40.1 % 10/28/2016 Cbc With Differential Ord2 MCV 95.2 fl 10/28/2016 Cbc With Differential Ord2 Lymph% 41.8 % 10/28/2016 Cbc With Differential Ord2 MCH 31.1 pg 10/28/2016 Cbc With Differential Ord2 [place]% 11.9 % 10/28/2016 Cbc With Differential Ord2 [...] 2.07 K/ul 10/28/2016 Cbc With Differential Ord2 [place] ABS# 0.6 K/ul 10/28/2016 Cbc With Differential Ord2 Eos ABS# 0.2 K/ul 10/28/2016 Cbc With Differential Ord2 Baso ABS# 0.1 K/ul 10/28/2016 Tsh Ord6 hTSH II 2.77 uIU/mL 10/28/2016 Comp Metabolic Hpg063 NA 138 mEq/L 10/28/2016 Comp Metabolic Cfh767 K 4.6 mEq/L 10/28/2016 Comp Metabolic Uyc022 CL 104 mEq/L 10/28/2016 Comp Metabolic Zss938 CO2 29.0 mEq/L 10/28/2016 Comp Metabolic Qwp983 ANION GAP 10 10/28/2016 Comp Metabolic Hsx724 GLUCOSE 88 mg/dL 10/28/2016 Comp Metabolic Rwo019 Creat 0.9 mg/dL 10/28/2016 Comp Metabolic Adt950 eGFR 60 ml/min/1.73m2 10/28/2016 Comp Metabolic Fcj020 BUN 27 mg/dL 10/28/2016 Comp Metabolic Qqc412 B/C Ratio 28.7 Ratio 10/28/2016 Comp Metabolic Awj353 CALCIUM 9.7 mg/dL 10/28/2016 Comp Metabolic Aul797 ALK PHOS 58 U/L 10/28/2016 Comp Metabolic Org429 AST(SGOT) 20 U/L 10/28/2016 Comp Metabolic Mid301 ALT(SGPT) 14 U/L 10/28/2016 Comp Metabolic Mfj300 BILI T 0.6 mg/dL 10/28/2016 Comp Metabolic Ctb256 ALBUMIN 3.6 g/dL 10/28/2016 Comp Metabolic Xqg652 TPRO 6.3 g/dL 10/28/2016 Comp Metabolic Vqd853 GLOB 2.7 g/dL 10/28/2016 Comp Metabolic Zwe051 A/G Ratio 1.3 Ratio 10/28/2016 Comp Metabolic Krv935 Osmo 280 mOsmo 10/28/2016 LIPID GRP HDL TEST 60 MG/DL 05/13/2015 LIPID GRP TRIG 100 MG/DL 05/13/2015 LIPID GRP TEST LDL 190 MG/DL 05/13/2015 LIPID GRP CHOL 270 MG/DL 05/13/2015 LIPID GRP RCHOL/HDL 4.50 RATIO 05/13/2015 LIPID GRP NON-HDL CH 210 MG/DL 05/13/2015 LIVER PNL 3336872 AST 29 U/L 05/13/2015 LIVER PNL 6216553 ALK PHOS 70 U/L 05/13/2015 LIVER PNL 1528726 BILI TOT 0.5 MG/DL 05/13/2015 LIVER PNL 4525709 ALT 27 IU/L 05/13/2015 LIVER PNL 6102869 BILI DIR 0.1 MG/DL 05/13/2015 LIVER PNL 7960221 ALBUMIN 3.8 GM/DL 05/13/2015 LIVER PNL 9235962 PROT TOT 7.3 GM/DL 05/13/2015 TSH 9026898 TSH 3.354 uIU/ML 07/24/2013 LIPID GRP HDL TEST 46 MG/DL 07/24/2013 LIPID GRP TRIG 86 MG/DL 07/24/2013 LIPID GRP TEST LDL 113 MG/DL 07/24/2013 LIPID GRP CHOL 176 MG/DL 07/24/2013 LIPID GRP RCHOL/HDL 3.83 RATIO 07/24/2013 CHEM 14 6791057 AST 25 U/L 07/24/2013 CHEM 14 8916462 ALT 20 IU/L 07/24/2013 CHEM 14 5305337 BUN 18 MG/DL 07/24/2013 CHEM 14 2663390 ALBUMIN 4.0 GM/DL 07/24/2013 CHEM 14 1744593 CHLORIDE 105 MMOL/L 07/24/2013 CHEM 14 3466173 BILI TOT 0.4 MG/DL 07/24/2013 CHEM 14 5293589 ALK PHOS 57 U/L 07/24/2013 CHEM 14 3151536 SODIUM 139 MMOL/L 07/24/2013 CHEM 14 9577966 CREATININE 0.83 MG/DL 07/24/2013 CHEM 14 5612377 CALCIUM 10.0 MG/DL 07/24/2013 CHEM 14 2455239 POTASSIUM 4.5 MMOL/L 07/24/2013 CHEM 14 6399974 PROT TOT 6.3 GM/DL 07/24/2013 CHEM 14 0119085 GLUCOSE 91 MG/DL 07/24/2013 CHEM 14 0074405 BICARB 28 MMOL/L 07/24/2013 CHEM 14 5527144 ANION GAP 6 MEQ/L 07/24/2013 FREE T4 7387903 FREE T4 1.17 NG/DL 07/24/2013 GFR CALC 9842469 GFR AA >60 ML/MIN 07/24/2013 GFR CALC 2105348 GFR NON-AA >60 ML/MIN 07/24/2013 CBC 3806839 WBC 5.7 10e9/L 07/24/2013 CBC 7994658 RBC 4.39 10e12/L 07/24/2013 CBC 9035652 HGB 13.6 g/dL 07/24/2013 CBC 1067719 HCT DET 41.7 % 07/24/2013 CBC 9613209 MCV 95.0 fL 07/24/2013 CBC 6352858 MCH 31.0 pg 07/24/2013 CBC 5160202 MCHC 32.6 g/dL 07/24/2013 CBC 5514936 PLT 341 10e9/L 07/24/2013 CBC 7480976 MPV 9.7 fL 07/24/2013 CBC 2562634 RROO % 37.9 % 07/24/2013 CBC 0328651 LY % 38.1 % 07/24/2013 CBC 6324644 MON % 12.0 % 07/24/2013 CBC 6772266 EOS % 9.9 % 07/24/2013 CBC 0583941 BASO % 2.1 % 07/24/2013 CBC 9765097 RDW 14.1 % 07/24/2013 CBC 8952276 ABS RORO 2.16 10e9/L 07/24/2013 CBC 7654471 ABS LYMPH 2.17 10e9/L 07/24/2013 CBC 0701870 ABS MONO 0.68 10e9/L 07/24/2013 CBC 8417912 ABS EOS 0.56 10e9/L 07/24/2013 CBC 9841581 ABS BASO 0.12 10e9/L 07/24/2013 CBC 4248488 RDW-SD 47.2 fL 07/24/2013 FREE T4 3856883 FREE T4 0.97 NG/DL 03/14/2013 TSH 5597097 TSH 6.175 uIU/ML 03/13/2013 LIPID GRP HDL TEST 51 MG/DL 03/13/2013 LIPID GRP TRIG 182 MG/DL 03/13/2013 LIPID GRP TEST LDL 191 MG/DL 03/13/2013 LIPID GRP CHOL 278 MG/DL 03/13/2013 LIPID GRP RCHOL/HDL 5.45 RATIO 03/13/2013 CHEM 14 1575329 AST 23 U/L 03/13/2013 CHEM 14 1292421 ALT 18 IU/L 03/13/2013 CHEM 14 9237724 BUN 21 MG/DL 03/13/2013 CHEM 14 1796862 ALBUMIN 4.1 GM/DL 03/13/2013 CHEM 14 9396757 CHLORIDE 107 MMOL/L 03/13/2013 CHEM 14 5824745 BILI TOT 0.4 MG/DL 03/13/2013 CHEM 14 3830641 ALK PHOS 57 U/L 03/13/2013 CHEM 14 9533607 SODIUM 140 MMOL/L 03/13/2013 CHEM 14 7775786 CREATININE 0.94 MG/DL 03/13/2013 CHEM 14 8827663 CALCIUM 9.8 MG/DL 03/13/2013 CHEM 14 7164565 POTASSIUM 4.4 MMOL/L 03/13/2013 CHEM 14 2777399 PROT TOT 6.1 GM/DL 03/13/2013 CHEM 14 9606752 GLUCOSE 90 MG/DL 03/13/2013 CHEM 14 0593067 BICARB 27 MMOL/L 03/13/2013 CHEM 14 3434192 ANION GAP 6 MEQ/L 03/13/2013 GFR CALC 7784065 GFR AA >60 ML/MIN 03/13/2013 GFR CALC 0822365 GFR NON-AA 57.0L ML/MIN 03/13/2013 CBC 0612837 WBC 4.9 10e9/L 07/02/2012 CBC 3160252 RBC 4.20 10e12/L 07/02/2012 CBC 3495080 HGB 13.3 g/dL 07/02/2012 CBC 1843753 HCT DET 40.2 % 07/02/2012 CBC 8093462 MCV 95.7 fL 07/02/2012 CBC 6262766 MCH 31.7 pg 07/02/2012 CBC 1724190 MCHC 33.1 g/dL 07/02/2012 CBC 7798649 PLT 317 10e9/L 07/02/2012 CBC 2462280 MPV 10.3 fL 07/02/2012 CBC 0459814 RORO % 40.1 % 07/02/2012 CBC 7604065 LY % 42.8 % 07/02/2012 CBC 6331733 MON % 12.0 % 07/02/2012 CBC 6189220 EOS % 4.3 % 07/02/2012 CBC 4633111 BASO % 0.8 % 07/02/2012 CBC 4364746 RDW 13.9 % 07/02/2012 CBC 4000555 ABS RORO 1.96 10e9/L 07/02/2012 CBC 5653621 ABS LYMPH 2.10 10e9/L 07/02/2012 CBC 1022341 ABS MONO 0.59 10e9/L 07/02/2012 CBC 9988527 ABS EOS 0.21 10e9/L 07/02/2012 CBC 4285385 ABS BASO 0.04 10e9/L 07/02/2012 CBC 4326615 RDW-SD 47.3 fL 07/02/2012 CHEM 14 2256987 AST 23 U/L 07/02/2012 CHEM 14 3891697 ALT 20 IU/L 07/02/2012 CHEM 14 4201140 BUN 14 MG/DL 07/02/2012 CHEM 14 7725431 ALBUMIN 3.8 GM/DL 07/02/2012 CHEM 14 7931016 CHLORIDE 108 MMOL/L 07/02/2012 CHEM 14 5063809 BILI TOT 0.4 MG/DL 07/02/2012 CHEM 14 7601016 ALK PHOS 66 U/L 07/02/2012 CHEM 14 6844711 SODIUM 143 MMOL/L 07/02/2012 CHEM 14 7393555 CREATININE 0.88 MG/DL 07/02/2012 CHEM 14 5024097 CALCIUM 9.7 MG/DL 07/02/2012 CHEM 14 6857756 POTASSIUM 4.6 MMOL/L 07/02/2012 CHEM 14 2165695 PROT TOT 6.4 GM/DL 07/02/2012 CHEM 14 1130379 GLUCOSE 87 MG/DL 07/02/2012 CHEM 14 2432059 BICARB 28 MMOL/L 07/02/2012 CHEM 14 7624093 ANION GAP 7 MEQ/L 07/02/2012 GFR CALC 1152436 GFR AA >60 ML/MIN 07/02/2012 GFR CALC 7609641 GFR NON-AA >60 ML/MIN 07/02/2012 FREE T4 7980352 FREE T4 1.10 NG/DL 07/02/2012 TSH 7037779 TSH 2.909 uIU/ML 07/02/2012 LIPID GRP HDL TEST 54 MG/DL 07/02/2012 LIPID GRP TRIG 102 MG/DL 07/02/2012 LIPID GRP TEST LDL 109 MG/DL 07/02/2012 LIPID GRP CHOL 183 MG/DL 07/02/2012 LIPID GRP RCHOL/HDL 3.39 RATIO 07/02/2012 URINALYSIS NONAUTO W/O SCOPE 86929 Specific [place] 1.005 DateTime(Free Text in Aprima) URINALYSIS NONAUTO W/O SCOPE 51078 PH 5.0 DateTime(Free Text in Aprima) URINALYSIS NONAUTO W/O SCOPE 89361 GLUCOSE NEG DateTime(Free Text in Aprima) URINALYSIS NONAUTO W/O SCOPE 59748 Protein NEG DateTime(Free Text in Aprima) URINALYSIS NONAUTO W/O SCOPE 58343 Blood NEG DateTime(Free Text in Aprima) URINALYSIS NONAUTO W/O SCOPE 74218 Bilirubin NEG DateTime(Free Text in Aprima) URINALYSIS NONAUTO W/O SCOPE 49241 Ketones NEG DateTime(Free Text in Aprima) URINALYSIS NONAUTO W/O SCOPE 65318 Urobilinogen NEG DateTime(Free Text in Aprima) URINALYSIS NONAUTO W/O SCOPE 88325 Nitrite NEG DateTime(Free Text in Aprima) URINALYSIS NONAUTO W/O SCOPE 05241 Leukocytes NEG DateTime(Free Text in Aprima) Review of Systems System Result Effective Dates Constitutional No recent illness 02/03/2017 Constitutional No [...] clear 05/22/2013 None Full Exam - General 1994 [...] masses 05/22/2013 None Full Exam - General 1994 Ears/Nose/Throat oral cavity/pharynx/larynx Overall: hypopharynx benign 05/22/2013 None Full Exam - General 1995 Ears/Nose/Throat oral cavity/pharynx/larynx Hard palate: ulcer 05/22/2013 right of midline, in posterior aspect of the hard palate Full Exam - General 1994 Neck inspection of neck Overall: normal size 05/22/2013 None Full Exam - General 1994 Neck inspection of neck Overall: no masses 05/22/2013 None Full Exam - General 1994 Respiratory auscultation Overall: breath sounds clear bilaterally 05/22/2013 None Full Exam - General 1994 Respiratory respiratory effort/rhythm Overall: no retractions 05/22/2013 None Full Exam - General 1994 Respiratory respiratory effort/rhythm Overall: normal rate 05/22/2013 [...] sounds 05/22/2013 None Full Exam - General 1995 Musculoskeletal spine, ribs and pelvis Overall: good [...] 1994 Ears/Nose/Throat oral cavity/pharynx/larynx Hard palate: ulcer 02/20/2013 [...] gingiva 10/25/2012 None Full Exam - General 1994 Ears/Nose/Throat lips/teeth/gingiva Overall: no masses 10/25/2012 None Full Exam - General 1994 Ears/Nose/Throat oral cavity/pharynx/larynx Overall: hypopharynx benign 10/25/2012 None Full Exam - General 1994 Ears/Nose/Throat oral cavity/pharynx/larynx Hard palate: ulcer 10/25/2012 [...] gingiva 07/04/2012 None Full Exam - General 1994 Ears/Nose/Throat lips/teeth/gingiva Overall: no masses 07/04/2012 None [...] dentition 12/26/2011 None Full Exam - General 1994 Ears/Nose/Throat lips/teeth/gingiva Overall: benign gingiva 12/26/2011 None Full Exam - General 1994 Ears/Nose/Throat lips/teeth/gingiva Overall: no masses 12/26/2011 None Full Exam - General 1994 Ears/Nose/Throat oral cavity/pharynx/larynx Overall: hypopharynx benign 12/26/2011 [...] lips 10/26/2011 None Full Exam - General 1994 Ears/Nose/Throat lips/teeth/gingiva Overall: normal dentition 10/26/2011 None Full Exam - General 1995 Ears/Nose/Throat lips/teeth/gingiva Overall: benign gingiva 10/26/2011 None Full Exam - General 1994 Ears/Nose/Throat lips/teeth/gingiva Overall: no masses 10/26/2011 None Full Exam - General 1994 Ears/Nose/Throat oral cavity/pharynx/larynx Overall: hypopharynx benign 10/26/2011 None Full Exam - General 1994 Ears/Nose/Throat oral cavity/pharynx/larynx Hard palate: ulcer 10/26/2011 [...] posture 10/26/2011 None Full Exam - General 1995 Neurologic gait Overall: no ataxia, no unsteadiness 10/26/2011 None Full Exam - General 1995 Psychiatric orientation/consciousness Overall: oriented to person, place and time 10/26/2011 None Full Exam - General 1995 Psychiatric mood and affect Overall: normal mood and affect 10/26/2011 None Full Exam - General 1995 Psychiatric appearance Overall: well-groomed, good eye contact [...] atraumatic 04/27/2011 None Full Exam - General 1995 Musculoskeletal spine, ribs and pelvis Overall: good posture 04/27/2011 None Full Exam - General 1994 Psychiatric orientation/consciousness Overall: oriented to person, place and time 04/27/2011 None Full Exam - General 1994 Psychiatric mood and affect Overall: normal mood and affect 04/27/2011 None Full Exam - General 1995 Psychiatric appearance Overall: well-groomed, good eye contact 04/27/2011 None Full Exam - General 1994 Neurologic gait Overall: no ataxia, no unsteadiness 04/27/2011 None Procedures Procedure Codes Date TRIAMCINOLONE ACET INJ NOS CPT-4: R9520Cfuubhe 02/03/2017 PAP CPT-4: 1746642Mdzbgxp 10/17/2016 ROUTINE VENIPUNCTURE CPT-4: 44838Nbcztrm 07/24/2013 ROUTINE VENIPUNCTURE CPT-4: 63040Ayhxurt 03/13/2013 PRESCRIP TRANSMIT VIA ERX SY CPT-4: O2097Ffgarua 10/25/2012 ROUTINE VENIPUNCTURE CPT-4: 98484Yntdbnc 07/02/2012 PRESCRIP TRANSMIT VIA ERX SY CPT-4: J2720Ntzgmlj 12/26/2011 ROUTINE VENIPUNCTURE CPT-4: 55449Aykidce 10/20/2011 URINALYSIS NONAUTO W/O SCOPE CPT-4: 23926Stnarbn 09/15/2011 PRESCRIP TRANSMIT VIA ERX SY CPT-4: N2365Wryfqhm 09/15/2011 ROUTINE VENIPUNCTURE CPT-4: 30690Kuskxrs 06/07/2011 PRESCRIP TRANSMIT VIA ERX SY CPT-4: N5464Jogvdgg 04/27/2011 Vital Signs Date Vital 02/03/2017 Blood Pressure 1: 142/84 Code: 8480-6 BMI: 32.2 Code: 18612-0 Heart Rate 1: 76 bpm Height: 5'4" SpO2: 96% Weight: 190 lbs 8 oz 10/17/2016 Blood Pressure 1: 136/90 Code: 8480-6 BMI: 31.6 Code: 11578-3 Heart Rate 1: 76 bpm Height: 5'4" SpO2: 98% Weight: 187 lbs 07/14/2015 Blood Pressure 1: 150/80 Code: 8480-6 BMI: 31.1 Code: 34871-6 Heart Rate 1: 74 bpm Height: 5'4" SpO2: 95% Weight: 184 lbs 11/17/2014 Blood Pressure 1: 142/88 Code: 8480-6 BMI: 32.3 Code: 08950-3 Heart Rate 1: 72 bpm Height: 5'4" Weight: 191 lbs 05/19/2014 Blood Pressure 1: 136/74 Code: 8480-6 BMI: 32.8 Code: 32118-6 Heart Rate 1: 72 bpm Height: 5'4" Weight: 194 lbs 11/04/2013 Blood Pressure 1: 154/76 Code: 8480-6 BMI: 31.4 Code: 53247-8 Heart Rate 1: 76 bpm Height: 5'4" Weight: 186 lbs 08/05/2013 Blood Pressure 1: 150/78 Code: 8480-6 BMI: 30.9 Code: 23816-6 Heart Rate 1: 60 bpm Height: 5'4" Weight: 183 lbs 05/22/2013 Blood Pressure 1: 156/76 Code: 8480-6 BMI: 31.8 Code: 58319-4 Heart Rate 1: 72 bpm Height: 5'4" Weight: 188 lbs 02/20/2013 Blood Pressure 1: 138/78 Code: 8480-6 BMI: 32.1 Code: 36088-0 Heart Rate 1: 72 bpm Height: 5'4" Weight: 190 lbs 10/25/2012 Blood Pressure 1: 138/82 Code: 8480-6 BMI: 31.8 Code: 71325-8 Heart Rate 1: 72 bpm Height: 5'4" Weight: 188 lbs 07/04/2012 Blood Pressure 1: 136/70 Code: 8480-6 Heart Rate 1: 72 bpm Weight: 187 lbs 12/26/2011 Blood Pressure 1: 152/82 Code: 8480-6 BMI: 30.4 Code: 92620-1 Heart Rate 1: 78 bpm Height: 5'4" Respiratory Rate: 16 bpm Weight: 180 lbs 10/26/2011 Blood Pressure 1: 140/64 Code: 8480-6 Heart Rate 1: 64 bpm Weight: 181 lbs 8 oz 09/15/2011 Blood Pressure 1: 152/82 Code: 8480-6 BMI: 30.8 Code: 64420-8 Heart Rate 1: 60 bpm Height: 5'4" Temperature: 36.8 (C) / 98.3 (F) Weight: 182 lbs 06/07/2011 Blood Pressure 1: 154/80 Code: 8480-6 05/10/2011 Blood Pressure 1: 122/66 Code: 8480-6 BMI: 30.7 Code: 92726-6 Heart Rate 1: 66 bpm Height: 5'4" Respiratory Rate: 12 bpm Weight: 181 lbs 8 oz 04/27/2011 Blood Pressure 1: 136/70 Code: 8480-6 BMI: 30.6 Code: 18747-7 Heart Rate 1: 72 bpm Height: 5'4" Respiratory Rate: 12 bpm Weight: 181 lbs Functional Status No Functional Status data History of Present Illness Symptom Name Status Result Effective Date Notes back pain Quality aching 02/03/2017 None back [...] data Encounters Encounter Performer Location Codes Date ([id number]) 46648 EST. PATIENT, LEVEL III Diagnosis: Low back pain[ICD10: M54.5] [facility] CPT-4: 46476 02/03/2017 ([id number]) 87391 EST. PATIENT, LEVEL IV Diagnosis: Encounter for gynecological examination (general) (routine) without abnormal findings[ICD10: Z01.419] Tori Abdalla MD [facility] CPT-4: 85665 10/17/2016 [id number] EST. PATIENT, LEVEL III Diagnosis: Low back pain[ICD10: M54.5] Katie Abdalla MD [facility] CPT-4: 49781 07/14/2015 ([id number]) 89455 EST. PATIENT, LEVEL III Diagnosis: ESSENTIAL HYPERTENSION[ICD9: 401.9] Marcela Abdalla MD [facility] CPT- 4: 84850 11/17/2014 ([id number]) 50716 EST. PATIENT, LEVEL III Diagnosis: ESSENTIAL HYPERTENSION[ICD9: 401.9] Diagnosis: HYPERLIPIDEMIA[ICD9: 272.4] Diagnosis: HYPOTHYROIDISM[ICD9: 244.9] Marcela Abdalla MD [facility] CPT-4: 47561 05/19/2014 ([id number]) 79553 EST. PATIENT, LEVEL IV Diagnosis: HYPOTHYROIDISM[ICD9: 244.9] Diagnosis: ESSENTIAL HYPERTENSION[SNOMED: 09780153] Marcela Abdalla MD [facility] CPT-4: 15983 11/04/2013 ([id number]) 12408 EST. PATIENT, LEVEL III Diagnosis: ESSENTIAL HYPERTENSION[SNOMED: 37407510] Marcela Abdalla MD [facility] CPT-4: 68656 08/05/2013 ([id number]) 59702 EST. PATIENT, LEVEL III Diagnosis: ESSENTIAL HYPERTENSION[SNOMED: 09925205] Marcela Abdalla MD [facility] CPT-4: 15093 05/22/2013 ([id number]) 28084 EST. PATIENT, LEVEL III Diagnosis: ESSENTIAL HYPERTENSION[SNOMED: 71403686] Marcela Abdalla MD [facility] CPT-4: 58123 02/20/2013 ([id number]) 21622 EST. PATIENT, LEVEL IV Diagnosis: ESSENTIAL HYPERTENSION[SNOMED: 84830269] Diagnosis: HYPERLIPIDEMIA[ICD9: 272.4] Diagnosis: NONSPECIF SKIN ERUPT NEC[ICD9: 782.1] Marcela Abdalla MD, [facility] CPT-4: 47055 10/25/2012 ([id number]) 40593 EST. PATIENT, LEVEL IV Diagnosis: ESSENTIAL HYPERTENSION[SNOMED: 13334466] Diagnosis: HYPERLIPIDEMIA[ICD9: 272.4] Marcela Abdalla MD, [facility] CPT-4: 34394 07/04/2012 ([id number]) 04989 EST. PATIENT, LEVEL IV Diagnosis: ESSENTIAL HYPERTENSION[SNOMED: 26999385] Diagnosis: HYPERLIPIDEMIA[ICD9: 272.4] Marcela Abdalla MD, [facility] CPT-4: 19194 12/26/2011 ([id number]) 02416 EST. PATIENT, LEVEL IV Diagnosis: ESSENTIAL HYPERTENSION[SNOMED: 47834210] Diagnosis: HYPERLIPIDEMIA[ICD9: 272.4] Marcela Abdalla MD, [facility] CPT-4: 81595 10/26/2011 ([id number]) 06227 EST. PATIENT, LEVEL IV Diagnosis: BPPV (benign paroxysmal positional vertigo)[ICD9: 386.11] Diagnosis: ESSENTIAL HYPERTENSION[SNOMED: 71483053] Tori Abdalla MD, [facility] CPT-4: 05920 09/15/2011 [id number] EST. PATIENT, LEVEL III Diagnosis: Lesion of oral mucosa[ICD9: 528.9] Diagnosis: Rash and nonspecific skin eruption[ICD9: 782.1] Marcela Abdalla MD, [facility] CPT-4: 31374 05/10/2011 [id number] EST. PATIENT, LEVEL IV Diagnosis: ESSENTIAL HYPERTENSION[SNOMED: 62546340] Diagnosis: Mouth sores[ICD9: 528.9] Marcela Abdalla MD, [facility] CPT-4: 13026 04/27/2011 Plan of Care Planned Activity Notes Codes Status Date Visit Plan: Low back pain- the patient [...] office. 02/03/2017 Appointment: Tori Duvall WPtel: [phone] [phone] (30 min) Complex 02/03/2017 Patient Education: [...] prn.Recommend mammogram 10/17/2016 [facility]ment[phone] [facility] 10/17/2016 Patient Education: Patient Medication [...] at home. 11/17/2014 Appointment: Marcela Abdalla WPtel: [facility] Follow up 11/17/2014 Patient Education: Patient [...] home. 05/19/2014 Appointment: Marcela Abdalla WPtel: [phone] [facility] Follow up 05/19/2014 Patient Education: Patient [...] control. 11/04/2013 Appointment: Marcela Abdalla WPtel: [phone] [facility] Follow up 11/04/2013 Patient Education: Patient [...] home. 08/05/2013 Appointment: Marcela Abdalla WPtel: [phone] [facility] Follow up 08/05/2013 Patient Education: Patient Medication [...] home. 05/22/2013 Appointment: Marcela Abdalla WPtel: [phone] [facility] Follow up 05/22/2013 Patient Education: Patient Medication [...] home. 02/20/2013 Appointment: Marcela Abdalla WPtel: [phone] [facility] Follow up 02/20/2013 Patient Education: Patient Medication [...] basis 10/25/2012 Appointment: Marcela Abdalla WPtel: [phone] [facility] Follow up 10/25/2012 Patient Education: Patient Medication [...] normal liver response to medications. 07/04/2012 Appointment: [place]wood Marcela WPtel: [facility] Established Patient Preventative visit 07/04/2012 Patient Education: Patient Medication Summary Completed 07/04/2012 Patient Education: 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 Completed 07/04/2012 Appointment: Marcel[facility] Abdalla [phone] [facility] Draw 07/02/2012 Patient Education: Patient Medication [...] medications. 12/26/2011 Appointment: Marcela Abdalla [facility]el[id number] [facility] 12/26/2011 Patient Education: Patient Medication Summary [...] to medications. 10/26/2011 Appointment: Marcela Abdalla WPtel: [address] [facility] [facility] 10/26/2011 Patient Education: Patient Medication Summary Completed 10/26/2011 Patient Education: High Blood Pressure: Essential 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 Completed 10/26/2011 Appointment: Marcela Abdalla [facility]el[phone] [place] Lab Draw 10/20/2011 Patient Education: Patient [...] vision changes. 09/15/2011 Appointment: Tori Duvall WPtel: [phone] [id number] [place] Lab Draw 09/15/2011 Patient Education: Patient Medication Summary Completed 09/15/2011 Patient Education: .Amazing charts Paroxysmal positional vertigo Completed 09/15/2011 Patient Education: High Blood Pressure: Essential 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 Completed 09/15/2011 Appointment: Marcela Abdalla WPtel: [address] [place], [place] [id number] [place] Lab Draw 06/07/2011 Patient Education: Patient [...] the rash. 05/10/2011 Appointment: Marcela Abdalla WPtel: [address] [place], [place] [id number] Other 05/10/2011 Patient Education: Patient Medication Summary Completed 05/10/2011 Appointment: Marcela Abdalla WPtel: [address] [place], [place] [id number] Follow up 05/04/2011 Visit Plan: HTN- improved from high blood pressure earlier this weekNo change in current medication. Try to avoid high salt containing foods.biofreeze to neckCarly at [employer] [facility]- a [employer] [facility] on 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 Mouth lesion - appears to be slowly healing, continue with low acid and low salt foods, if the lesion worsens, call clinic. Rash in groin and fadumo-area - previously visualized, continue with diflucan prn for exacerbation of the rash. . 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
--- OUTSIDE RECORDS SUMMARY | 2019-01-10 12:32 | XMS REPORT | CCD ---
Author Author [facility] Organization [facility] Address [address] [place] [address] Phone Care Team Providers Care Planogrammer Name Role Phone PP Unavailable CCM Unavailable Summary Purpose Interface Exchange Insurance Providers Payer name Policy type / Coverage type Covered republican ID Effective Begin Date Effective End Date WPS Medicare Part B Medicare Part B [id number] Unknown Unknown [facility] [employer] Medicare Part B [id number] Unknown Unknown Family history Mother Diagnosis Age At Onset Heart disease Unknown 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 Unknown Sister Diagnosis Age At Onset Cancer Unknown Father Diagnosis Age At Onset 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 Unknown Stroke Unknown Grandfather Diagnosis Age At Onset Breast cancer Unknown Sister Diagnosis Age At Onset Cancer Unknown Social History Social History Element Codes Description Effective Dates Marital status Unknown 04/27/2011 Number of children Unknown 4 [id number] 04/27/2011 Employment Unknown Retired 04/27/[address]: 397361404 Never smoker 04/27/[address]: 873059913 Never drinks alcohol 04/27/2011 Has the patient [...] Kenalog 40 mg/mL suspension for injection RxNorm: 9772500 1 Milliliter(s) Inj 02/03/2017 02/03/2017 Inactive Zocor 10 mg tablet RxNorm: 615576 1 Tablet(s) PO daily 05/14/2015 05/13/2015 Inactive Zocor 10 mg tablet RxNorm: 744486 1 Tablet(s) PO daily 05/14/2015 05/06/2016 Inactive Zocor 10 mg tablet RxNorm: 259961 1 Tablet(s) PO daily 05/14/2015 05/07/2016 Inactive vxklkmri-wrwdnlpjx-wbznjefei 3.5 mg/g-10,000 unit/g-0.5 %topical cream RxNorm: 5257192 3 gtts TOP TID 11/17/2014 11/26/2014 Inactive [SAVINGS FOR NON-COVERED DRUGS -- BIN:[id number], PCN: [id number], Group: XXXXX, ID# [id number], Questions: . THIS IS NOT INSURANCE.] simvastatin 40 mg tablet RxNorm: 268359 1/2 Tablet(s) PO QHS 10/09/2013 11/03/2013 Inactive Synthroid 25 mcg tablet RxNorm: 003156 1 Tablet(s) PO daily 08/19/2013 11/11/2014 Inactive clobetasol 0.05 % Topical Cream RxNorm: 789455 1 Application TOP TID PRN 04/05/2013 07/03/2013 Inactive nystatin 100,000 unit/gram Topical Powder RxNorm: 277378 Gram(s) TOP apply to affected area as needed 03/22/2013 10/16/2016 Inactive fluconazole 150 mg tablet RxNorm: 752992 1 Tablet(s) PO 03/19/2013 03/18/2013 Inactive take one at outbreak and then use nystatin powder (she has nystatin at home) fluconazole 150 mg tablet RxNorm: 002477 1 Tablet(s) PO 03/19/2013 03/25/2013 Inactive take one at outbreak and then use nystatin powder (she has nystatin at home) simvastatin 40 mg tablet RxNorm: 856402 1/2 Tablet(s) PO QHS 03/18/2013 07/15/2013 Inactive Synthroid 25 mcg tablet RxNorm: 936322 1 Tablet(s) PO daily 03/18/2013 08/14/2013 Inactive clobetasol 0.05 % Topical Cream RxNorm: 155133 1 Application TOP TID PRN 10/25/2012 01/22/2013 Inactive Coreg 3.125 mg tablet RxNorm: 557464 1 Tablet(s) PO BID 04/17/2012 07/03/2012 Inactive Coreg 3.125 mg tablet RxNorm: 101329 1 Tablet(s) PO BID 03/16/2012 04/14/2012 Inactive Diflucan 150 mg Tab RxNorm: 148826 1 Tablet(s) PO daily 12/26/2011 01/22/2012 Inactive simvastatin 40 mg tablet RxNorm: 474031 1/2 Tablet(s) PO QHS 04/27/2011 03/17/2013 Inactive lisinopril 20 mg tablet RxNorm: 662886 1 Tablet(s) PO as needed No Start Date Active coenzyme Q10 oral RxNorm: 68384 oral No Start Date Active Vitamin C Oral RxNorm: Oral No Start Date 10/16/2016 Inactive Synthroid 25 mcg tablet RxNorm: 554229 Tablet(s) PO No Start Date 03/17/2013 Inactive coenzyme Q10 75 mg Cap RxNorm: 500519 1 Capsule(s) PO daily No Start Date 10/16/2016 Inactive Coreg 3.125 mg tablet RxNorm: 344713 1 Tablet(s) PO BID No Start Date 03/15/2012 Inactive simvastatin 40 mg Tab RxNorm: 379385 1 Tablet(s) PO QHS No Start Date 04/26/2011 Inactive aspirin 81 mg capsule,delayed release RxNorm: 646648 1 Capsule(s) PO daily No Start Date 10/16/2016 Inactive metoprolol succinate ER 50 mg tablet,extended release 24 hr RxNorm: 005324 1 Tablet(s) PO daily No Start Date 10/16/2016 Inactive Bystolic 5 mg Tab RxNorm: 437830 1 Tablet(s) PO daily No Start Date 10/30/2011 Inactive clobetasol 0.05 % Topical Cream RxNorm: 788631 TOP No Start Date 10/24/2012 Inactive omega-3 fatty acids 1,250 mg Cap RxNorm: 5047352 1 Capsule(s) PO daily No Start Date 10/16/2016 Inactive meclizine 12.5 mg Tab RxNorm: 023765 1/2-1 Tablet(s) PO Q6 PRN No Start Date 05/18/2014 Inactive promethazine 25 mg Rectal Suppository RxNorm: 047926 1 Suppository RTL Q6 PRN No Start Date 07/03/2012 Inactive nystatin 100,000 unit/gram Topical Powder RxNorm: 046603 Gram(s) TOP apply to affected area as needed No Start Date 03/21/2013 Inactive Medication Administered Medication Codes Instructions Start Date Status Kenalog 40 mg/mL suspension for injection RxNorm: 6215351 1Milliliter 02/03/2017 Active Immunizations Vaccine Codes Date Status Influenza [...] 31.1 pg 10/28/2016 Cbc With Differential Ord2 Noble% 11.9 % 10/28/2016 Cbc With Differential Ord2 [...] 2.07 K/ul 10/28/2016 Cbc With Differential Ord2 Noble ABS# 0.6 K/ul 10/28/2016 Cbc With Differential Ord2 Eos ABS# 0.2 K/ul 10/28/2016 Cbc With Differential Ord2 Baso ABS# 0.1 K/ul 10/28/2016 Tsh Ord6 hTSH II 2.77 uIU/mL 10/28/2016 Comp Metabolic Gwe846 NA 138 mEq/L 10/28/2016 Comp Metabolic Zct880 K 4.6 mEq/L 10/28/2016 Comp Metabolic Kxn757 CL 104 mEq/L 10/28/2016 Comp Metabolic Wfa847 CO2 29.0 mEq/L 10/28/2016 Comp Metabolic Yoo407 ANION GAP 10 10/28/2016 Comp Metabolic Orl527 GLUCOSE 88 mg/dL 10/28/2016 Comp Metabolic Ubl852 Creat 0.9 mg/dL 10/28/2016 Comp Metabolic Cwp933 eGFR 60 ml/min/1.73m2 10/28/2016 Comp Metabolic Eyc691 BUN 27 mg/dL 10/28/2016 Comp Metabolic Sxd871 B/C Ratio 28.7 Ratio 10/28/2016 Comp Metabolic Uzr543 CALCIUM 9.7 mg/dL 10/28/2016 Comp Metabolic Hlm634 ALK PHOS 58 U/L 10/28/2016 Comp Metabolic Lfe982 AST(SGOT) 20 U/L 10/28/2016 Comp Metabolic Ksc966 ALT(SGPT) 14 U/L 10/28/2016 Comp Metabolic San344 BILI T 0.6 mg/dL 10/28/2016 Comp Metabolic Zct388 ALBUMIN 3.6 g/dL 10/28/2016 Comp Metabolic Tci219 TPRO 6.3 g/dL 10/28/2016 Comp Metabolic Erp937 GLOB 2.7 g/dL 10/28/2016 Comp Metabolic Ose256 A/G Ratio 1.3 Ratio 10/28/2016 Comp Metabolic Fzi488 Osmo 280 mOsmo 10/28/2016 LIPID GRP HDL TEST 60 MG/DL 05/13/2015 LIPID GRP TRIG 100 MG/DL 05/13/2015 LIPID GRP TEST LDL 190 MG/DL 05/13/2015 LIPID GRP CHOL 270 MG/DL 05/13/2015 LIPID GRP RCHOL/HDL 4.50 RATIO 05/13/2015 LIPID GRP NON-HDL CH 210 MG/DL 05/13/2015 LIVER PNL 8455770 AST 29 U/L 05/13/2015 LIVER PNL 4651343 ALK PHOS 70 U/L 05/13/2015 LIVER PNL 8972863 BILI TOT 0.5 MG/DL 05/13/2015 LIVER PNL 8788249 ALT 27 IU/L 05/13/2015 LIVER PNL 0934917 BILI DIR 0.1 MG/DL 05/13/2015 LIVER PNL 1603277 ALBUMIN 3.8 GM/DL 05/13/2015 LIVER PNL 0113983 PROT TOT 7.3 GM/DL 05/13/2015 TSH 1310445 TSH 3.354 uIU/ML 07/24/2013 LIPID GRP HDL TEST 46 MG/DL 07/24/2013 LIPID GRP TRIG 86 MG/DL 07/24/2013 LIPID GRP TEST LDL 113 MG/DL 07/24/2013 LIPID GRP CHOL 176 MG/DL 07/24/2013 LIPID GRP RCHOL/HDL 3.83 RATIO 07/24/2013 CHEM 14 3230930 AST 25 U/L 07/24/2013 CHEM 14 3444149 ALT 20 IU/L 07/24/2013 CHEM 14 3279306 BUN 18 MG/DL 07/24/2013 CHEM 14 9096227 ALBUMIN 4.0 GM/DL 07/24/2013 CHEM 14 7864191 CHLORIDE 105 MMOL/L 07/24/2013 CHEM 14 7806392 BILI TOT 0.4 MG/DL 07/24/2013 CHEM 14 7483715 ALK PHOS 57 U/L 07/24/2013 CHEM 14 9436264 SODIUM 139 MMOL/L 07/24/2013 CHEM 14 7185310 CREATININE 0.83 MG/DL 07/24/2013 CHEM 14 5179265 CALCIUM 10.0 MG/DL 07/24/2013 CHEM 14 1687494 POTASSIUM 4.5 MMOL/L 07/24/2013 CHEM 14 7413919 PROT TOT 6.3 GM/DL 07/24/2013 CHEM 14 4738783 GLUCOSE 91 MG/DL 07/24/2013 CHEM 14 3839156 BICARB 28 MMOL/L 07/24/2013 CHEM 14 5317923 ANION GAP 6 MEQ/L 07/24/2013 FREE T4 2197401 FREE T4 1.17 NG/DL 07/24/2013 GFR CALC 0449708 GFR AA >60 ML/MIN 07/24/2013 GFR CALC 9824188 GFR NON-AA >60 ML/MIN 07/24/2013 CBC 2296444 WBC 5.7 10e9/L 07/24/2013 CBC 1580092 RBC 4.39 10e12/L 07/24/2013 CBC 3676040 HGB 13.6 g/dL 07/24/2013 CBC 0758853 HCT DET 41.7 % 07/24/2013 CBC 8094239 MCV 95.0 fL 07/24/2013 CBC 5842338 MCH 31.0 pg 07/24/2013 CBC 9184446 MCHC 32.6 g/dL 07/24/2013 CBC 7394171 PLT 341 10e9/L 07/24/2013 CBC 5196621 MPV 9.7 fL 07/24/2013 CBC 3671422 RORO % 37.9 % 07/24/2013 CBC 4456146 LY % 38.1 % 07/24/2013 CBC 7251352 MON % 12.0 % 07/24/2013 CBC 5820527 EOS % 9.9 % 07/24/2013 CBC 8575665 BASO % 2.1 % 07/24/2013 CBC 2051843 RDW 14.1 % 07/24/2013 CBC 8687244 ABS RORO 2.16 10e9/L 07/24/2013 CBC 6922279 ABS LYMPH 2.17 10e9/L 07/24/2013 CBC 5036426 ABS MONO 0.68 10e9/L 07/24/2013 CBC 2626119 ABS EOS 0.56 10e9/L 07/24/2013 CBC 8536023 ABS BASO 0.12 10e9/L 07/24/2013 CBC 5820711 RDW-SD 47.2 fL 07/24/2013 FREE T4 9788130 FREE T4 0.97 NG/DL 03/14/2013 TSH 5808431 TSH 6.175 uIU/ML 03/13/2013 LIPID GRP HDL TEST 51 MG/DL 03/13/2013 LIPID GRP TRIG 182 MG/DL 03/13/2013 LIPID GRP TEST LDL 191 MG/DL 03/13/2013 LIPID GRP CHOL 278 MG/DL 03/13/2013 LIPID GRP RCHOL/HDL 5.45 RATIO 03/13/2013 CHEM 14 6100967 AST 23 U/L 03/13/2013 CHEM 14 0859114 ALT 18 IU/L 03/13/2013 CHEM 14 0543026 BUN 21 MG/DL 03/13/2013 CHEM 14 3569484 ALBUMIN 4.1 GM/DL 03/13/2013 CHEM 14 9062311 CHLORIDE 107 MMOL/L 03/13/2013 CHEM 14 8953255 BILI TOT 0.4 MG/DL 03/13/2013 CHEM 14 9604140 ALK PHOS 57 U/L 03/13/2013 CHEM 14 5347169 SODIUM 140 MMOL/L 03/13/2013 CHEM 14 4614589 CREATININE 0.94 MG/DL 03/13/2013 CHEM 14 6719331 CALCIUM 9.8 MG/DL 03/13/2013 CHEM 14 3850096 POTASSIUM 4.4 MMOL/L 03/13/2013 CHEM 14 5929072 PROT TOT 6.1 GM/DL 03/13/2013 CHEM 14 8916774 GLUCOSE 90 MG/DL 03/13/2013 CHEM 14 6416244 BICARB 27 MMOL/L 03/13/2013 CHEM 14 2484107 ANION GAP 6 MEQ/L 03/13/2013 GFR CALC 8447073 GFR AA >60 ML/MIN 03/13/2013 GFR CALC 4900610 GFR NON-AA 57.0L ML/MIN 03/13/2013 CBC 3640889 WBC 4.9 10e9/L 07/02/2012 CBC 1097661 RBC 4.20 10e12/L 07/02/2012 CBC 8214588 HGB 13.3 g/dL 07/02/2012 CBC 4688199 HCT DET 40.2 % 07/02/2012 CBC 2634545 MCV 95.7 fL 07/02/2012 CBC 0785524 MCH 31.7 pg 07/02/2012 CBC 4961080 MCHC 33.1 g/dL 07/02/2012 CBC 6013897 PLT 317 10e9/L 07/02/2012 CBC 5260312 MPV 10.3 fL 07/02/2012 CBC 6434341 RORO % 40.1 % 07/02/2012 CBC 6893547 LY % 42.8 % 07/02/2012 CBC 6482257 MON % 12.0 % 07/02/2012 CBC 6236539 EOS % 4.3 % 07/02/2012 CBC 1772033 BASO % 0.8 % 07/02/2012 CBC 3078916 RDW 13.9 % 07/02/2012 CBC 5169651 ABS RORO 1.96 10e9/L 07/02/2012 CBC 6928304 ABS LYMPH 2.10 10e9/L 07/02/2012 CBC 1867857 ABS MONO 0.59 10e9/L 07/02/2012 CBC 3055752 ABS EOS 0.21 10e9/L 07/02/2012 CBC 5490231 ABS BASO 0.04 10e9/L 07/02/2012 CBC 8157855 RDW-SD 47.3 fL 07/02/2012 CHEM 14 1605102 AST 23 U/L 07/02/2012 CHEM 14 4038770 ALT 20 IU/L 07/02/2012 CHEM 14 4829444 BUN 14 MG/DL 07/02/2012 CHEM 14 2423613 ALBUMIN 3.8 GM/DL 07/02/2012 CHEM 14 0580465 CHLORIDE 108 MMOL/L 07/02/2012 CHEM 14 2973444 BILI TOT 0.4 MG/DL 07/02/2012 CHEM 14 8844606 ALK PHOS 66 U/L 07/02/2012 CHEM 14 1532295 SODIUM 143 MMOL/L 07/02/2012 CHEM 14 9256606 CREATININE 0.88 MG/DL 07/02/2012 CHEM 14 2596484 CALCIUM 9.7 MG/DL 07/02/2012 CHEM 14 1606076 POTASSIUM 4.6 MMOL/L 07/02/2012 CHEM 14 8327461 PROT TOT 6.4 GM/DL 07/02/2012 CHEM 14 8241510 GLUCOSE 87 MG/DL 07/02/2012 CHEM 14 2905470 BICARB 28 MMOL/L 07/02/2012 CHEM 14 8220793 ANION GAP 7 MEQ/L 07/02/2012 GFR CALC 9213134 GFR AA >60 ML/MIN 07/02/2012 GFR CALC 8847913 GFR NON-AA >60 ML/MIN 07/02/2012 FREE T4 7306338 FREE T4 1.10 NG/DL 07/02/2012 TSH 3216802 TSH 2.909 uIU/ML 07/02/2012 LIPID GRP HDL TEST 54 MG/DL 07/02/2012 LIPID GRP TRIG 102 MG/DL 07/02/2012 LIPID GRP TEST LDL 109 MG/DL 07/02/2012 LIPID GRP CHOL 183 MG/DL 07/02/2012 LIPID GRP RCHOL/HDL 3.39 RATIO 07/02/2012 URINALYSIS NONAUTO W/O SCOPE 38748 Specific [place] 1.005 DateTime(Free Text in Aprima) URINALYSIS NONAUTO W/O SCOPE 18797 PH 5.0 DateTime(Free Text in Aprima) URINALYSIS NONAUTO W/O SCOPE 22477 GLUCOSE NEG DateTime(Free Text in Aprima) URINALYSIS NONAUTO W/O SCOPE 53322 Protein NEG DateTime(Free Text in Aprima) URINALYSIS NONAUTO W/O SCOPE 02103 Blood NEG DateTime(Free Text in Aprima) URINALYSIS NONAUTO W/O SCOPE 68113 Bilirubin NEG DateTime(Free Text in Aprima) URINALYSIS NONAUTO W/O SCOPE 30832 Ketones NEG DateTime(Free Text in Aprima) URINALYSIS NONAUTO W/O SCOPE 40894 Urobilinogen NEG DateTime(Free Text in Aprima) URINALYSIS NONAUTO W/O SCOPE 15320 Nitrite NEG DateTime(Free Text in Aprima) URINALYSIS NONAUTO W/O SCOPE 64722 Leukocytes NEG DateTime(Free Text in Aprima) Review [...] General 1995 Cardiovascular auscultation of heart Overall: no murmurs 05/22/2013 None Full Exam - General 1995 Abdomen abdominal exam Overall: no tenderness 05/22/2013 None Full Exam - General 1995 Abdomen abdominal exam Overall: normal bowel sounds 05/22/2013 None Full Exam - General 1995 Musculoskeletal spine, ribs and pelvis Overall: good posture 05/22/2013 None Full Exam - General 1995 Musculoskeletal head and neck Overall: head atraumatic [...] nourished 02/20/2013 None Full Exam - General 1995 Constitutional general appearance Overall: well developed 02/20/2013 [...] hard palate Full Exam - General 1995 Neck inspection of neck Overall: normal size [...] accomodation 10/25/2012 None Full Exam - General 1994 Ears/Nose/Throat otoscopic exam Overall: external auditory canals clear 10/25/2012 None Full Exam - General 1995 Ears/Nose/Throat otoscopic exam Overall: tympanic membranes clear 10/25/2012 None Full Exam - General 1994 Ears/Nose/Throat lips/teeth/gingiva Overall: benign lips 10/25/2012 None Full Exam - General 1994 Ears/Nose/Throat lips/teeth/gingiva Overall: normal dentition 10/25/2012 None [...] dentition 10/26/2011 None Full Exam - General 1994 Ears/Nose/Throat lips/teeth/gingiva Overall: benign gingiva 10/26/2011 None [...] contact 04/27/2011 None Full Exam - General 1995 Neurologic gait Overall: no ataxia, no unsteadiness 04/27/2011 None Procedures Procedure Codes Date TRIAMCINOLONE ACET INJ NOS CPT-4: Y1636Dzszfzd 02/03/2017 PAP CPT-4: 3677115Avlakfo 10/17/2016 ROUTINE VENIPUNCTURE CPT-4: 92778Qrrcoin 07/24/2013 ROUTINE VENIPUNCTURE CPT-4: 38259Ypgximv 03/13/2013 PRESCRIP TRANSMIT VIA ERX SY CPT-4: W0512Fwuzwkl 10/25/2012 ROUTINE VENIPUNCTURE CPT-4: 90169Ntdhaxk 07/02/2012 PRESCRIP TRANSMIT VIA ERX SY CPT-4: X1820Uvsgapo 12/26/2011 ROUTINE VENIPUNCTURE CPT-4: 06497Syridjt 10/20/2011 URINALYSIS NONAUTO W/O SCOPE CPT-4: 03695Tmsfesk 09/15/2011 PRESCRIP TRANSMIT VIA ERX SY CPT-4: R3878Cnleymb 09/15/2011 ROUTINE VENIPUNCTURE CPT-4: 88116Vnohvvq 06/07/2011 PRESCRIP TRANSMIT VIA ERX SY CPT-4: R3054Ygjsmop 04/27/2011 Vital Signs Date Vital 02/03/2017 Blood Pressure 1: 142/84 Code: 8480-6 BMI: 32.2 Code: 75383-6 Heart Rate 1: 76 bpm Height: 5'4" SpO2: 96% Weight: 190 lbs 8 oz 10/17/2016 Blood Pressure 1: 136/90 Code: 8480-6 BMI: 31.6 Code: 74329-1 Heart Rate 1: 76 bpm Height: 5'4" SpO2: 98% Weight: 187 lbs 07/14/2015 Blood Pressure 1: 150/80 Code: 8480-6 BMI: 31.1 Code: 35930-6 Heart Rate 1: 74 bpm Height: 5'4" SpO2: 95% Weight: 184 lbs 11/17/2014 Blood Pressure 1: 142/88 Code: 8480-6 BMI: 32.3 Code: 74468-7 Heart Rate 1: 72 bpm Height: 5'4" Weight: 191 lbs 05/19/2014 Blood Pressure 1: 136/74 Code: 8480-6 BMI: 32.8 Code: 21606-7 Heart Rate 1: 72 bpm Height: 5'4" Weight: 194 lbs 11/04/2013 Blood Pressure 1: 154/76 Code: 8480-6 BMI: 31.4 Code: 22641-5 Heart Rate 1: 76 bpm Height: 5'4" Weight: 186 lbs 08/05/2013 Blood Pressure 1: 150/78 Code: 8480-6 BMI: 30.9 Code: 54655-1 Heart Rate 1: 60 bpm Height: 5'4" Weight: 183 lbs 05/22/2013 Blood Pressure 1: 156/76 Code: 8480-6 BMI: 31.8 Code: 04515-2 Heart Rate 1: 72 bpm Height: 5'4" Weight: 188 lbs 02/20/2013 Blood Pressure 1: 138/78 Code: 8480-6 BMI: 32.1 Code: 41051-2 Heart Rate 1: 72 bpm Height: 5'4" Weight: 190 lbs 10/25/2012 Blood Pressure 1: 138/82 Code: 8480-6 BMI: 31.8 Code: 39887-5 Heart Rate 1: 72 bpm Height: 5'4" Weight: 188 lbs 07/04/2012 Blood Pressure 1: 136/70 Code: 8480-6 Heart Rate 1: 72 bpm Weight: 187 lbs 12/26/2011 Blood Pressure 1: 152/82 Code: 8480-6 BMI: 30.4 Code: 03311-4 Heart Rate 1: 78 bpm Height: 5'4" Respiratory Rate: 16 bpm Weight: 180 lbs 10/26/2011 Blood Pressure 1: 140/64 Code: 8480-6 Heart Rate 1: 64 bpm Weight: 181 lbs 8 oz 09/15/2011 Blood Pressure 1: 152/82 Code: 8480-6 BMI: 30.8 Code: 06313-3 Heart Rate 1: 60 bpm Height: 5'4" Temperature: 36.8 (C) / 98.3 (F) Weight: 182 lbs 06/07/2011 Blood Pressure 1: 154/80 Code: 8480-6 05/10/2011 Blood Pressure 1: 122/66 Code: 8480-6 BMI: 30.7 Code: 44597-5 Heart Rate 1: 66 bpm Height: 5'4" Respiratory Rate: 12 bpm Weight: 181 lbs 8 oz 04/27/2011 Blood Pressure 1: 136/70 Code: 8480-6 BMI: 30.6 Code: 77353-4 Heart Rate 1: 72 bpm Height: 5'4" [...] data Encounters Encounter Performer Location Codes Date ([id number]) 15666 EST. PATIENT, LEVEL III Diagnosis: Low back pain[ICD10: M54.5] [facility] CPT-4: 24393 02/03/2017 ([id number]) 80330 EST. PATIENT, LEVEL IV Diagnosis: Encounter for gynecological examination (general) (routine) without abnormal findings[ICD10: Z01.419] Tori Abdalla MD, [facility] CPT-4: 77619 10/17/2016 89041 EST. PATIENT, LEVEL III Diagnosis: Low back pain[ICD10: M54.5] Katie Abdalla MD, [facility] CPT-4: 54583 07/14/2015 ([id number]) 64994 EST. PATIENT, LEVEL III Diagnosis: ESSENTIAL HYPERTENSION[ICD9: 401.9] Marcela Abdalla MD, [facility] CPT- 4: 21829 11/17/2014 ([id number]) 69084 EST. PATIENT, LEVEL III Diagnosis: ESSENTIAL HYPERTENSION[ICD9: 401.9] Diagnosis: HYPERLIPIDEMIA[ICD9: 272.4] Diagnosis: HYPOTHYROIDISM[ICD9: 244.9] Marcela Abdalla MD, [facility] CPT-4: 40204 05/19/2014 ([id number]) 16771 EST. PATIENT, LEVEL IV Diagnosis: HYPOTHYROIDISM[ICD9: 244.9] Diagnosis: ESSENTIAL HYPERTENSION[SNOMED: 55524076] Marcela Abdalla MD, [facility] CPT-4: 45220 11/04/2013 ([id number]) 35134 EST. PATIENT, LEVEL III Diagnosis: ESSENTIAL HYPERTENSION[SNOMED: 55780806] Marcela Abdalla MD [facility] CPT-4: 93562 08/05/2013 ([id number]) 77041 EST. PATIENT, LEVEL III Diagnosis: ESSENTIAL HYPERTENSION[SNOMED: 12883780] Marcela Abdalla MD, [facility] CPT-4: 34187 05/22/2013 ([id number]) 10030 EST. PATIENT, LEVEL III Diagnosis: ESSENTIAL HYPERTENSION[SNOMED: 33178381] Marcela Abdalla MD, [facility] CPT-4: 39849 02/20/2013 ([id number]) 58390 EST. PATIENT, LEVEL IV Diagnosis: ESSENTIAL HYPERTENSION[SNOMED: 70858240] Diagnosis: HYPERLIPIDEMIA[ICD9: 272.4] Diagnosis: NONSPECIF SKIN ERUPT NEC[ICD9: 782.1] Marcela Abdalla MD, [facility] CPT-4: 95784 10/25/2012 ([id number]) 03156 EST. PATIENT, LEVEL IV Diagnosis: ESSENTIAL HYPERTENSION[SNOMED: 53940251] Diagnosis: HYPERLIPIDEMIA[ICD9: 272.4] Marcela Abdalla MD, [facility] CPT-4: 07421 07/04/2012 ([id number]) 04419 EST. PATIENT, LEVEL IV Diagnosis: ESSENTIAL HYPERTENSION[SNOMED: 35456519] Diagnosis: HYPERLIPIDEMIA[ICD9: 272.4] Marcela Abdalla MD, [facility] CPT-4: 75584 12/26/2011 ([id number]) 40243 EST. PATIENT, LEVEL IV Diagnosis: ESSENTIAL HYPERTENSION[SNOMED: 47836815] Diagnosis: HYPERLIPIDEMIA[ICD9: 272.4] Marcela Abdalla MD, [facility] CPT-4: 36175 10/26/2011 ([id number]) 85720 EST. PATIENT, LEVEL IV Diagnosis: BPPV (benign paroxysmal positional vertigo)[ICD9: 386.11] Diagnosis: ESSENTIAL HYPERTENSION[SNOMED: 51372836] Tori Abdalla MD, [facility] CPT-4: 33383 09/15/2011 97755 EST. PATIENT, LEVEL III Diagnosis: Lesion of oral mucosa[ICD9: 528.9] Diagnosis: Rash and nonspecific skin eruption[ICD9: 782.1] Marcela Abdalla MD, [facility] CPT-4: 85078 05/10/2011 90771 EST. PATIENT, LEVEL IV Diagnosis: ESSENTIAL HYPERTENSION[SNOMED: 30475280] Diagnosis: Mouth sores[ICD9: 528.9] Marcela Adballa MD, [facility] CPT-4: 99779 04/27/2011 Plan of Care Planned Activity Notes [...] Kenalog injection today in the office. 02/03/2017 Patient Education: Patient Medication Summary Completed [...] mammogram 10/17/2016 Appointment: Tori Duvall WPtel: [phone] [phone] [facility] 10/17/2016 Patient Education: Patient Medication [...] home. 11/17/2014 Appointment: Marcela Abdalla WPtel: [phone] [facility] Follow up 11/17/2014 Patient Education: Patient Medication [...] at home. 05/19/2014 Appointment: Marcela Abdalla WPtel: [phone] [facility] Follow up 05/19/2014 Patient Education: Patient Medication [...] control. 11/04/2013 Appointment: Marcel[facility] Abdalla [facility] [phone] [facility] Follow [place] 11/04/2013 Patient Education: Patient Medication [...] home. 08/05/2013 Appointment: Marcela Abdalla WPtel: [phone] [facility] [address] Follow up 08/05/2013 Patient Education: Patient Medication [...] home. 05/22/2013 Appointment: Marcela Abdalla WPtel: [phone] [facility] [address] Follow up 05/22/2013 Patient Education: Patient Medication [...] home. 02/20/2013 Appointment: Marcela Abdalla WPtel: [phone] [facility] Follow up 02/20/2013 Patient Education: Patient Medication [...] basis 10/25/2012 Appointment: Marcela Abdalla WPtel: [phone] [facility] [address] Follow up 10/25/2012 Patient Education: Patient Medication [...] medications. 07/04/2012 Appointment: Marcela Abdalla WPtel: [phone] [facility] Established Patient Preventative visit 07/04/2012 Patient Education: Patient Medication Summary Completed 07/04/2012 Patient Education: 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 Completed 07/04/2012 Appointment: Marcela Abdalla WPtel: [phone] [facility] Lab Draw 07/02/2012 Patient Education: Patient Medication [...] to medications. 12/26/2011 Appointment: Marcela Abdalla WPtel: [facility] Other 12/26/2011 Patient Education: Patient Medication Summary [...] to medications. 10/26/2011 Appointment: Marcela Abdalla WPtel: [phone] [facility] [facility] 10/26/2011 Patient Education: Patient Medication Summary Completed 10/26/2011 Patient Education: High Blood Pressure: Essential 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 Completed 10/26/2011 Appointment: Marcela Abdalla WPtel: [phone] [facility] [place] [address] Lab Draw 10/20/2011 Patient Education: Patient Medication [...] vision changes. 09/15/2011 [phone] [facility] [place] [facility] 09/15/2011 Patient Education: Patient Medication Summary Completed 09/15/2011 Patient Education: .Amazing charts Paroxysmal positional vertigo Completed 09/15/2011 Patient Education: High Blood Pressure: Essential 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 Completed 09/15/2011 Appointment: Marcela Abdalla WPtel: [facility] [place] [id number] [place] Lab Draw 06/07/2011 Patient Education: Patient [...] the rash. 05/10/2011 Appointment: Marcela Abdalla WPtel: [facility]5 [facility] [place] Other 05/10/2011 Patient Education: Patient Medication Summary Completed 05/10/2011 Appointment: Marcela Abdalla WPtel: [facility] [place] [address] Follow up 05/04/2011 Visit Plan: HTN- improved from high blood pressure earlier this weekNo change in current medication. Try to avoid high salt containing foods.biofreeze to neckCarly at A HEAD OF ITS TIME- a [employer] [facility] on [address] is a massage therapist to call about a deep tissue massageRETURN TO CLINIC NEXT WEEK FOR DR TO TAKE A QUICK LOOK AT YOUR MOUTH 04/27/2011 Appointment: Marcela Abdalla WPtel: [address] [place], [place] [id number] [place] Other 04/27/2011 Patient Education: Patient Medication Summary Completed 04/27/2011 Referral: Seth Thorne WPtel: [address], [address] [id number] [place] Referral Relationship Instructions Comment . Mouth [...] at A HEAD OF ITS TIME- a [employer] salon on [address] is a massage therapist to call about a deep tissue massage RETURN TO CLINIC NEXT WEEK FOR DR TO TAKE A QUICK LOOK AT YOUR MOUTH
[2019-01-10] MEDS ORDERED: MIDAZOLAM 2 MG/2 ML (VERSED) VIAL ONE (12:33)
[2019-01-10] MEDS ORDERED: KETAMINE/NaCl 50 MG/5 ML SYRINGE ONE (12:33)
--- OUTSIDE RECORDS SUMMARY | 2019-01-10 12:34 | XMS REPORT | CCD ---
Author Author [facility] Organization [facility] Address [address] [place] [address] Phone Care Team Providers Care Advanced Practice Professional Name Role Phone PP Unavailable CCM Unavailable Summary Purpose Interface Exchange Insurance Providers Payer name Policy type / Coverage type Covered green party ID Effective Begin Date Effective End Date WPS Medicare Part B Medicare Part B [id number] Unknown Cigna Medicare Part B [id number] Unknown Family history Daughter Diagnosis Age At [...] Unknown 04/27/2011 Number of children Unknown 4 [id number] 04/27/2011 Employment Unknown Retired 04/27/[address]: 248673946 Never smoker 04/27/[address]: 481293018 Never drinks alcohol 04/27/2011 Has the patient [...] Fill Instructions naproxen 500 mg tablet RxNorm: 369940 1 Tablet(s) PO BID 12/06/2018 12/10/2018 Inactive pravastatin 20 mg tablet RxNorm: 401941 1 Tablet(s) PO daily 10/03/2018 01/30/2019 Active pravastatin 20 mg tablet RxNorm: 467029 1 Tablet(s) PO daily 10/03/2018 10/02/2018 Inactive lisinopril 10 mg tablet RxNorm: 879684 TAKE ONE TABLET BY MOUTH ONCE DAILY IN THE EVENING 08/08/2018 No Stop Date Active prednisone 20 mg tablet RxNorm: 365759 2 Tablet(s) PO daily 09/19/2017 09/23/2017 Inactive lisinopril 10 mg tablet RxNorm: 988675 1 Tablet(s) PO QPM 07/21/2017 01/16/2018 Inactive Kenalog 40 mg/mL suspension for injection RxNorm: 6185865 1 Milliliter(s) Inj 02/03/2017 02/03/2017 Inactive Zocor 10 mg tablet RxNorm: 625504 1 Tablet(s) PO daily 05/14/2015 05/13/2015 Inactive Zocor 10 mg tablet RxNorm: 987847 1 Tablet(s) PO daily 05/14/2015 05/06/2016 Inactive Zocor 10 mg tablet RxNorm: 821782 1 Tablet(s) PO daily 05/14/2015 05/07/2016 Inactive dpvdpnen-hajyvwnpt-bzqdbtdnn 3.5 mg/g-10,000 unit/g-0.5 %topical cream RxNorm: 2744170 3 gtts TOP TID 11/17/2014 11/26/2014 Inactive [SAVINGS FOR NON-COVERED DRUGS -- BIN:[id number], PCN: [id number], Group: XXXXX, ID# [id number], Questions: . THIS IS NOT INSURANCE.] simvastatin 40 mg tablet RxNorm: 891961 1/2 Tablet(s) PO QHS 10/09/2013 11/03/2013 Inactive Synthroid 25 mcg tablet RxNorm: 175363 1 Tablet(s) PO daily 08/19/2013 11/11/2014 Inactive clobetasol 0.05 % Topical Cream RxNorm: 467652 1 Application TOP TID PRN 04/05/2013 07/03/2013 Inactive nystatin 100,000 unit/gram Topical Powder RxNorm: 444004 Gram(s) TOP apply to affected area as needed 03/22/2013 10/16/2016 Inactive fluconazole 150 mg tablet RxNorm: 904049 1 Tablet(s) PO 03/19/2013 03/18/2013 Inactive take one at outbreak and then use nystatin powder (she has nystatin at home) fluconazole 150 mg tablet RxNorm: 117961 1 Tablet(s) PO 03/19/2013 03/25/2013 Inactive take one at outbreak and then use nystatin powder (she has nystatin at home) simvastatin 40 mg tablet RxNorm: 452758 1/2 Tablet(s) PO QHS 03/18/2013 07/15/2013 Inactive Synthroid 25 mcg tablet RxNorm: 244691 1 Tablet(s) PO daily 03/18/2013 08/14/2013 Inactive clobetasol 0.05 % Topical Cream RxNorm: 669852 1 Application TOP TID PRN 10/25/2012 01/22/2013 Inactive Coreg 3.125 mg tablet RxNorm: 473680 1 Tablet(s) PO BID 04/17/2012 07/03/2012 Inactive Coreg 3.125 mg tablet RxNorm: 347855 1 Tablet(s) PO BID 03/16/2012 04/14/2012 Inactive Diflucan 150 mg Tab RxNorm: 438817 1 Tablet(s) PO daily 12/26/2011 01/22/2012 Inactive simvastatin 40 mg tablet RxNorm: 232977 1/2 Tablet(s) PO QHS 04/27/2011 03/17/2013 Inactive Vitamin C Oral RxNorm: Oral No Start Date 10/16/2016 Inactive Synthroid 25 mcg tablet RxNorm: 267254 Tablet(s) PO No Start Date 03/17/2013 Inactive coenzyme Q10 75 mg Cap RxNorm: 014345 1 Capsule(s) PO daily No Start Date 10/16/2016 Inactive Coreg 3.125 mg tablet RxNorm: 721412 1 Tablet(s) PO BID No Start Date 03/15/2012 Inactive simvastatin 40 mg Tab RxNorm: 021441 1 Tablet(s) PO QHS No Start Date 04/26/2011 Inactive aspirin 81 mg capsule,delayed release RxNorm: 841802 1 Capsule(s) PO daily No Start Date 10/16/2016 Inactive metoprolol succinate ER 50 mg tablet,extended release 24 hr RxNorm: 155381 1 Tablet(s) PO daily No Start Date 10/16/2016 Inactive lisinopril 20 mg tablet RxNorm: 885392 1 Tablet(s) PO as needed No Start Date 07/20/2017 Inactive Bystolic 5 mg Tab RxNorm: 895342 1 Tablet(s) PO daily No Start Date 10/30/2011 Inactive clobetasol 0.05 % Topical Cream RxNorm: 436746 TOP No Start Date 10/24/2012 Inactive omega-3 fatty acids 1,250 mg Cap RxNorm: 4329388 1 Capsule(s) PO daily No Start Date 10/16/2016 Inactive coenzyme Q10 oral RxNorm: 35755 oral No Start Date 06/13/2018 Inactive meclizine 12.5 mg Tab RxNorm: 578942 1/2-1 Tablet(s) PO Q6 PRN No Start Date 05/18/2014 Inactive promethazine 25 mg Rectal Suppository RxNorm: 077645 1 Suppository RTL Q6 PRN No Start Date 07/03/2012 Inactive nystatin 100,000 unit/gram Topical Powder RxNorm: 624879 Gram(s) TOP apply to affected area as needed No Start Date 03/21/2013 Inactive Medication Administered Medication Codes Instructions Start Date Status Kenalog 40 mg/mL suspension for injection RxNorm: 6874438 1Milliliter 02/03/2017 No longer Active Immunizations Vaccine [...] Item Item Code Result Date Comp Metabolic Snv819 NA 140 mEq/L 12/07/2018 Comp Metabolic Xrz483 K 4.5 mEq/L 12/07/2018 Comp Metabolic Ddu780 CL 105 mEq/L 12/07/2018 Comp Metabolic Dtk843 CO2 26.0 mEq/L 12/07/2018 Comp Metabolic Blg425 ANION GAP 14 12/07/2018 Comp Metabolic Hkj546 GLUCOSE 90 mg/dL 12/07/2018 Comp Metabolic Hqg173 Creat 0.9 mg/dL 12/07/2018 Comp Metabolic Kks217 eGFR 66 ml/min/1.73m2 12/07/2018 Comp Metabolic Esf386 BUN 22 mg/dL 12/07/2018 Comp Metabolic Fne710 B/C Ratio 25.3 Ratio 12/07/2018 Comp Metabolic Jkl194 CALCIUM 9.7 mg/dL 12/07/2018 Comp Metabolic Kgv333 ALK PHOS 67 U/L 12/07/2018 Comp Metabolic Zxo017 AST(SGOT) 22 U/L 12/07/2018 Comp Metabolic Tlq052 ALT(SGPT) 16 U/L 12/07/2018 Comp Metabolic Qxx414 BILI T 0.4 mg/dL 12/07/2018 Comp Metabolic Mhi213 ALBUMIN 3.9 g/dL 12/07/2018 Comp Metabolic Drw651 TPRO 6.2 g/dL 12/07/2018 Comp Metabolic Bft763 GLOB 2.3 g/dL 12/07/2018 Comp Metabolic Eqy082 A/G Ratio 1.7 Ratio 12/07/2018 Comp Metabolic Ymt667 Osmo 282 mOsmo 12/07/2018 Cbc With Differential [...] 31.1 pg 12/06/2018 Cbc With Differential Ord2 [place]% 12.2 % 12/06/2018 Cbc With Differential Ord2 [...] 1.63 K/ul 12/06/2018 Cbc With Differential Ord2 [place] ABS# 0.6 K/ul 12/06/2018 Cbc With Differential [...] 31.5 pg 06/18/2018 Cbc With Differential Ord2 [place]% 13.3 % 06/18/2018 Cbc With Differential Ord2 [...] 1.82 K/ul 06/18/2018 Cbc With Differential Ord2 [place] ABS# 0.6 K/ul 06/18/2018 Cbc With Differential Ord2 Eos ABS# 0.2 K/ul 06/18/2018 Cbc With Differential Ord2 Baso ABS# 0.1 K/ul 06/18/2018 Lipid Ord30 CHOL 259 mg/dL 06/18/2018 Lipid Ord30 HDL 59.0 mg/dl 06/18/2018 Lipid Ord30 TRIG 115 mg/dL 06/18/2018 Lipid Ord30 LDL 177 mg/dL 06/18/2018 Lipid Ord30 C/HDL 4.4 Ratio 06/18/2018 Tsh Ord6 TSH (3rd IS) 2.11 uIU/mL 06/18/2018 Comp Metabolic Lnk749 NA 141 mEq/L 06/18/2018 Comp Metabolic Ryq649 K 4.7 mEq/L 06/18/2018 Comp Metabolic Rkd965 CL 106 mEq/L 06/18/2018 Comp Metabolic Euf462 CO2 28.0 mEq/L 06/18/2018 Comp Metabolic Epl500 ANION GAP 12 06/18/2018 Comp Metabolic Pso016 GLUCOSE 85 mg/dL 06/18/2018 Comp Metabolic Flq718 Creat 0.8 mg/dL 06/18/2018 Comp Metabolic Ypl411 eGFR 71 ml/min/1.73m2 06/18/2018 Comp Metabolic Obd487 BUN 18 mg/dL 06/18/2018 Comp Metabolic Iqg293 B/C Ratio 22.2 Ratio 06/18/2018 Comp Metabolic Xwj033 CALCIUM 9.4 mg/dL 06/18/2018 Comp Metabolic Esp642 ALK PHOS 69 U/L 06/18/2018 Comp Metabolic Bkz944 AST(SGOT) 22 U/L 06/18/2018 Comp Metabolic Eaz770 ALT(SGPT) 16 U/L 06/18/2018 Comp Metabolic Cam865 BILI T 0.5 mg/dL 06/18/2018 Comp Metabolic Ren638 ALBUMIN 3.9 g/dL 06/18/2018 Comp Metabolic Oft694 TPRO 6.5 g/dL 06/18/2018 Comp Metabolic Vge687 GLOB 2.6 g/dL 06/18/2018 Comp Metabolic Kbv040 A/G Ratio 1.5 Ratio 06/18/2018 Comp Metabolic Jso024 Osmo 282 mOsmo 06/18/2018 Lipid Ord30 CHOL [...] 31.1 pg 10/28/2016 Cbc With Differential Ord2 [place]% 11.9 % 10/28/2016 Cbc With Differential Ord2 [...] 2.07 K/ul 10/28/2016 Cbc With Differential Ord2 [place] ABS# 0.6 K/ul 10/28/2016 Cbc With Differential Ord2 Eos ABS# 0.2 K/ul 10/28/2016 Cbc With Differential Ord2 Baso ABS# 0.1 K/ul 10/28/2016 Tsh Ord6 hTSH II 2.77 uIU/mL 10/28/2016 Comp Metabolic Yla773 NA 138 mEq/L 10/28/2016 Comp Metabolic Gwh700 K 4.6 mEq/L 10/28/2016 Comp Metabolic Bqh389 CL 104 mEq/L 10/28/2016 Comp Metabolic Fhw344 CO2 29.0 mEq/L 10/28/2016 Comp Metabolic Jhw386 ANION GAP 10 10/28/2016 Comp Metabolic Aay161 GLUCOSE 88 mg/dL 10/28/2016 Comp Metabolic Ndp683 Creat 0.9 mg/dL 10/28/2016 Comp Metabolic Skm565 eGFR 60 ml/min/1.73m2 10/28/2016 Comp Metabolic Vsq418 BUN 27 mg/dL 10/28/2016 Comp Metabolic Rbj935 B/C Ratio 28.7 Ratio 10/28/2016 Comp Metabolic Gnx986 CALCIUM 9.7 mg/dL 10/28/2016 Comp Metabolic Xrk289 ALK PHOS 58 U/L 10/28/2016 Comp Metabolic Sgj870 AST(SGOT) 20 U/L 10/28/2016 Comp Metabolic Rns766 ALT(SGPT) 14 U/L 10/28/2016 Comp Metabolic Rsn726 BILI T 0.6 mg/dL 10/28/2016 Comp Metabolic Yei679 ALBUMIN 3.6 g/dL 10/28/2016 Comp Metabolic Xwi382 TPRO 6.3 g/dL 10/28/2016 Comp Metabolic Wpg500 GLOB 2.7 g/dL 10/28/2016 Comp Metabolic Xmt314 A/G Ratio 1.3 Ratio 10/28/2016 Comp Metabolic Pyf533 Osmo 280 mOsmo 10/28/2016 LIPID GRP HDL TEST 60 MG/DL 05/13/2015 LIPID GRP TRIG 100 MG/DL 05/13/2015 LIPID GRP TEST LDL 190 MG/DL 05/13/2015 LIPID GRP CHOL 270 MG/DL 05/13/2015 LIPID GRP RCHOL/HDL 4.50 RATIO 05/13/2015 LIPID GRP NON-HDL CH 210 MG/DL 05/13/2015 LIVER PNL 1265138 AST 29 U/L 05/13/2015 LIVER PNL 3432843 ALK PHOS 70 U/L 05/13/2015 LIVER PNL 5217502 BILI TOT 0.5 MG/DL 05/13/2015 LIVER PNL 5655148 ALT 27 IU/L 05/13/2015 LIVER PNL 3311824 BILI DIR 0.1 MG/DL 05/13/2015 LIVER PNL 6301214 ALBUMIN 3.8 GM/DL 05/13/2015 LIVER PNL 1638841 PROT TOT 7.3 GM/DL 05/13/2015 TSH 7505404 TSH 3.354 uIU/ML 07/24/2013 LIPID GRP HDL TEST 46 MG/DL 07/24/2013 LIPID GRP TRIG 86 MG/DL 07/24/2013 LIPID GRP TEST LDL 113 MG/DL 07/24/2013 LIPID GRP CHOL 176 MG/DL 07/24/2013 LIPID GRP RCHOL/HDL 3.83 RATIO 07/24/2013 CHEM 14 3467372 AST 25 U/L 07/24/2013 CHEM 14 0804922 ALT 20 IU/L 07/24/2013 CHEM 14 5644490 BUN 18 MG/DL 07/24/2013 CHEM 14 1729676 ALBUMIN 4.0 GM/DL 07/24/2013 CHEM 14 4611067 CHLORIDE 105 MMOL/L 07/24/2013 CHEM 14 0655129 BILI TOT 0.4 MG/DL 07/24/2013 CHEM 14 1790095 ALK PHOS 57 U/L 07/24/2013 CHEM 14 0500694 SODIUM 139 MMOL/L 07/24/2013 CHEM 14 0483037 CREATININE 0.83 MG/DL 07/24/2013 CHEM 14 0636044 CALCIUM 10.0 MG/DL 07/24/2013 CHEM 14 9798204 POTASSIUM 4.5 MMOL/L 07/24/2013 CHEM 14 5713022 PROT TOT 6.3 GM/DL 07/24/2013 CHEM 14 6734541 GLUCOSE 91 MG/DL 07/24/2013 CHEM 14 7691601 BICARB 28 MMOL/L 07/24/2013 CHEM 14 1751703 ANION GAP 6 MEQ/L 07/24/2013 FREE T4 8415301 FREE T4 1.17 NG/DL 07/24/2013 GFR CALC 4303049 GFR AA >60 ML/MIN 07/24/2013 GFR CALC 1149154 GFR NON-AA >60 ML/MIN 07/24/2013 CBC 0900327 WBC 5.7 10e9/L 07/24/2013 CBC 1262416 RBC 4.39 10e12/L 07/24/2013 CBC 7930778 HGB 13.6 g/dL 07/24/2013 CBC 3918461 HCT DET 41.7 % 07/24/2013 CBC 4240273 MCV 95.0 fL 07/24/2013 CBC 0872658 MCH 31.0 pg 07/24/2013 CBC 4820453 MCHC 32.6 g/dL 07/24/2013 CBC 9899619 PLT 341 10e9/L 07/24/2013 CBC 6152425 MPV 9.7 fL 07/24/2013 CBC 9088874 [place] % 37.9 % 07/24/2013 CBC 8656841 LY % 38.1 % 07/24/2013 CBC 4824888 MON % 12.0 % 07/24/2013 CBC 8246623 EOS % 9.9 % 07/24/2013 CBC 8891366 BASO % 2.1 % 07/24/2013 CBC 2902874 RDW 14.1 % 07/24/2013 CBC 5999226 ABS RORO 2.16 10e9/L 07/24/2013 CBC 6639234 ABS LYMPH 2.17 10e9/L 07/24/2013 CBC 3709128 ABS MONO 0.68 10e9/L 07/24/2013 CBC 9154277 ABS EOS 0.56 10e9/L 07/24/2013 CBC 9972522 ABS BASO 0.12 10e9/L 07/24/2013 CBC 9970677 RDW-SD 47.2 fL 07/24/2013 FREE T4 9639330 FREE T4 0.97 NG/DL 03/14/2013 TSH 2652372 TSH 6.175 uIU/ML 03/13/2013 LIPID GRP HDL TEST 51 MG/DL 03/13/2013 LIPID GRP TRIG 182 MG/DL 03/13/2013 LIPID GRP TEST LDL 191 MG/DL 03/13/2013 LIPID GRP CHOL 278 MG/DL 03/13/2013 LIPID GRP RCHOL/HDL 5.45 RATIO 03/13/2013 CHEM 14 4641807 AST 23 U/L 03/13/2013 CHEM 14 3285103 ALT 18 IU/L 03/13/2013 CHEM 14 5236390 BUN 21 MG/DL 03/13/2013 CHEM 14 0752278 ALBUMIN 4.1 GM/DL 03/13/2013 CHEM 14 2916851 CHLORIDE 107 MMOL/L 03/13/2013 CHEM 14 4885408 BILI TOT 0.4 MG/DL 03/13/2013 CHEM 14 2025883 ALK PHOS 57 U/L 03/13/2013 CHEM 14 7198282 SODIUM 140 MMOL/L 03/13/2013 CHEM 14 5303491 CREATININE 0.94 MG/DL 03/13/2013 CHEM 14 5280032 CALCIUM 9.8 MG/DL 03/13/2013 CHEM 14 4405087 POTASSIUM 4.4 MMOL/L 03/13/2013 CHEM 14 7922019 PROT TOT 6.1 GM/DL 03/13/2013 CHEM 14 7872594 GLUCOSE 90 MG/DL 03/13/2013 CHEM 14 1449624 BICARB 27 MMOL/L 03/13/2013 CHEM 14 0537984 ANION GAP 6 MEQ/L 03/13/2013 GFR CALC 3395305 GFR AA >60 ML/MIN 03/13/2013 GFR CALC 1163760 GFR NON-AA 57.0L ML/MIN 03/13/2013 CBC 4751744 WBC 4.9 10e9/L 07/02/2012 CBC 8283157 RBC 4.20 10e12/L 07/02/2012 CBC 7718247 HGB 13.3 g/dL 07/02/2012 CBC 9452938 HCT DET 40.2 % 07/02/2012 CBC 6048279 MCV 95.7 fL 07/02/2012 CBC 9957245 MCH 31.7 pg 07/02/2012 CBC 2195798 MCHC 33.1 g/dL 07/02/2012 CBC 7761598 PLT 317 10e9/L 07/02/2012 CBC 2635263 MPV 10.3 fL 07/02/2012 CBC 7120277 [place] % 40.1 % 07/02/2012 CBC 1561134 LY % 42.8 % 07/02/2012 CBC 6676081 MON % 12.0 % 07/02/2012 CBC 1678743 EOS % 4.3 % 07/02/2012 CBC 6691803 BASO % 0.8 % 07/02/2012 CBC 0488122 RDW 13.9 % 07/02/2012 CBC 6194715 ABS [place] 1.96 10e9/L 07/02/2012 CBC 4449182 ABS LYMPH 2.10 10e9/L 07/02/2012 CBC 4557007 ABS MONO 0.59 10e9/L 07/02/2012 CBC 1875567 ABS EOS 0.21 10e9/L 07/02/2012 CBC 3899698 ABS BASO 0.04 10e9/L 07/02/2012 CBC 5696663 RDW-SD 47.3 fL 07/02/2012 CHEM 14 2577058 AST 23 U/L 07/02/2012 CHEM 14 0475363 ALT 20 IU/L 07/02/2012 CHEM 14 5012918 BUN 14 MG/DL 07/02/2012 CHEM 14 2453508 ALBUMIN 3.8 GM/DL 07/02/2012 CHEM 14 6890679 CHLORIDE 108 MMOL/L 07/02/2012 CHEM 14 9719612 BILI TOT 0.4 MG/DL 07/02/2012 CHEM 14 1745644 ALK PHOS 66 U/L 07/02/2012 CHEM 14 3309904 SODIUM 143 MMOL/L 07/02/2012 CHEM 14 9196445 CREATININE 0.88 MG/DL 07/02/2012 CHEM 14 6017548 CALCIUM 9.7 MG/DL 07/02/2012 CHEM 14 8159378 POTASSIUM 4.6 MMOL/L 07/02/2012 CHEM 14 6082653 PROT TOT 6.4 GM/DL 07/02/2012 CHEM 14 6910823 GLUCOSE 87 MG/DL 07/02/2012 CHEM 14 5224281 BICARB 28 MMOL/L 07/02/2012 CHEM 14 6040515 ANION GAP 7 MEQ/L 07/02/2012 GFR CALC 9406360 GFR AA >60 ML/MIN 07/02/2012 GFR CALC 4606747 GFR NON-AA >60 ML/MIN 07/02/2012 FREE T4 0900255 FREE T4 1.10 NG/DL 07/02/2012 TSH 7355959 TSH 2.909 uIU/ML 07/02/2012 LIPID GRP HDL TEST 54 MG/DL 07/02/2012 LIPID GRP TRIG 102 MG/DL 07/02/2012 LIPID GRP TEST LDL 109 MG/DL 07/02/2012 LIPID GRP CHOL 183 MG/DL 07/02/2012 LIPID GRP RCHOL/HDL 3.39 RATIO 07/02/2012 URINALYSIS NONAUTO W/O SCOPE 83433 Specific [place] 1.005 DateTime(Free Text in Aprima) URINALYSIS NONAUTO W/O SCOPE 57495 PH 5.0 DateTime(Free Text in Aprima) URINALYSIS NONAUTO W/O SCOPE 14671 GLUCOSE NEG DateTime(Free Text in Aprima) URINALYSIS NONAUTO W/O SCOPE 32503 Protein NEG DateTime(Free Text in Aprima) URINALYSIS NONAUTO W/O SCOPE 62057 Blood NEG DateTime(Free Text in Aprima) URINALYSIS NONAUTO W/O SCOPE 34203 Bilirubin NEG DateTime(Free Text in Aprima) URINALYSIS NONAUTO W/O SCOPE 84767 Ketones NEG DateTime(Free Text in Aprima) URINALYSIS NONAUTO W/O SCOPE 92576 Urobilinogen NEG DateTime(Free Text in Aprima) URINALYSIS NONAUTO W/O SCOPE 63408 Nitrite NEG DateTime(Free Text in Aprima) URINALYSIS NONAUTO W/O SCOPE 20769 Leukocytes NEG DateTime(Free Text in Apr) Review [...] INJ NOS CPT-4: J3301 02/03/2017 PAP CPT-4: 6442699 10/17/2016 ROUTINE VENIPUNCTURE CPT- 4: 37196 07/24/2013 ROUTINE VENIPUNCTURE CPT- 4: 20821 03/13/2013 PRESCRIP TRANSMIT VIA ERX SY CPT-4: G8553 10/25/2012 ROUTINE VENIPUNCTURE CPT- 4: 05739 07/02/2012 PRESCRIP TRANSMIT VIA ERX SY CPT-4: G8553 12/26/2011 ROUTINE VENIPUNCTURE CPT- 4: 74498 10/20/2011 URINALYSIS NONAUTO W/O SCOPE CPT-4: 04335 09/15/2011 PRESCRIP TRANSMIT VIA ERX SY CPT-4: G8553 09/15/2011 ROUTINE VENIPUNCTURE CPT- 4: 52581 06/07/2011 PRESCRIP TRANSMIT VIA ERX SY CPT-4: G8553 04/27/2011 Vital Signs Date Vital 12/12/2018 Blood Pressure 1: 144/72 Code: 8480-6 BMI: 32.1 Code: 16297-6 Heart Rate 1: 73 bpm Height: 5'4" SpO2: 96% Weight: 190 lbs 12/06/2018 Blood Pressure 1: 180/86 Code: 8480-6 Heart Rate 1: 94 bpm Height: 5'4" SpO2: 96% 06/14/2018 Blood Pressure 1: 142/76 Code: 8480-6 BMI: 33.0 Code: 41017-4 Heart Rate 1: 72 bpm Height: 5'4" SpO2: 97% Waist Measure (cm): 107 cm Weight: 195 lbs 09/19/2017 Blood Pressure 1: 148/70 Code: 8480-6 BMI: 33.3 Code: 29507-0 Heart Rate 1: 82 bpm Height: 5'4" SpO2: 98% Weight: 197 lbs 07/21/2017 Blood Pressure 1: 160/62 Code: 8480-6 Blood Pressure 1: 144/68 Code: 8480-6 BMI: 33.3 Code: 60538-8 Heart Rate 1: 75 bpm Height: 5'4" SpO2: 98% Weight: 197 lbs 02/06/2017 Blood Pressure 1: 142/84 Code: 8480-6 BMI: 32.1 Code: 22076-8 Heart Rate 1: 76 bpm Height: 5'4" SpO2: 96% Weight: 190 lbs 02/03/2017 Blood Pressure 1: 142/84 Code: 8480-6 BMI: 32.2 Code: 38292-3 Heart Rate 1: 76 bpm Height: 5'4" SpO2: 96% Weight: 190 lbs 8 oz 10/17/2016 Blood Pressure 1: 136/90 Code: 8480-6 BMI: 31.6 Code: 77504-6 Heart Rate 1: 76 bpm Height: 5'4" SpO2: 98% Weight: 187 lbs 07/14/2015 Blood Pressure 1: 150/80 Code: 8480-6 BMI: 31.1 Code: 96835-3 Heart Rate 1: 74 bpm Height: 5'4" SpO2: 95% Weight: 184 lbs 11/17/2014 Blood Pressure 1: 142/88 Code: 8480-6 BMI: 32.3 Code: 49953-5 Heart Rate 1: 72 bpm Height: 5'4" Weight: 191 lbs 05/19/2014 Blood Pressure 1: 136/74 Code: 8480-6 BMI: 32.8 Code: 50171-6 Heart Rate 1: 72 bpm Height: 5'4" Weight: 194 lbs 11/04/2013 Blood Pressure 1: 154/76 Code: 8480-6 BMI: 31.4 Code: 98185-3 Heart Rate 1: 76 bpm Height: 5'4" Weight: 186 lbs 08/05/2013 Blood Pressure 1: 150/78 Code: 8480-6 BMI: 30.9 Code: 77805-6 Heart Rate 1: 60 bpm Height: 5'4" Weight: 183 lbs 05/22/2013 Blood Pressure 1: 156/76 Code: 8480-6 BMI: 31.8 Code: 45895-8 Heart Rate 1: 72 bpm Height: 5'4" Weight: 188 lbs 02/20/2013 Blood Pressure 1: 138/78 Code: 8480-6 BMI: 32.1 Code: 96101-3 Heart Rate 1: 72 bpm Height: 5'4" Weight: 190 lbs 10/25/2012 Blood Pressure 1: 138/82 Code: 8480-6 BMI: 31.8 Code: 33982-9 Heart Rate 1: 72 bpm Height: 5'4" Weight: 188 lbs 07/04/2012 Blood Pressure 1: 136/70 Code: 8480-6 Heart Rate 1: 72 bpm Weight: 187 lbs 12/26/2011 Blood Pressure 1: 152/82 Code: 8480-6 BMI: 30.4 Code: 52880-9 Heart Rate 1: 78 bpm Height: 5'4" Respiratory Rate: 16 bpm Weight: 180 lbs 10/26/2011 Blood Pressure 1: 140/64 Code: 8480-6 Heart Rate 1: 64 bpm Weight: 181 lbs 8 oz 09/15/2011 Blood Pressure 1: 152/82 Code: 8480-6 BMI: 30.8 Code: 42321-0 Heart Rate 1: 60 bpm Height: 5'4" Temperature: 36.8 (C) / 98.3 (F) Weight: 182 lbs 06/07/2011 Blood Pressure 1: 154/80 Code: 8480-6 05/10/2011 Blood Pressure 1: 122/66 Code: 8480-6 BMI: 30.7 Code: 61600-2 Heart Rate 1: 66 bpm Height: 5'4" Respiratory Rate: 12 bpm Weight: 181 lbs 8 oz 04/27/2011 Blood Pressure 1: 136/70 Code: 8480-6 BMI: 30.6 Code: 49817-3 Heart Rate 1: 72 bpm Height: 5'4" [...] data Encounters Encounter Performer Location Codes Date 71105 EST. PATIENT, LEVEL III Diagnosis: Edema, unspecified[ICD10: R60.9] Diagnosis: Other specified soft tissue disorders[ICD10: M79.89] Katie Abdalla MD, [facility] CPT-4: 76606 12/12/2018 [id number] EST. PATIENT, LEVEL III Diagnosis: Edema, unspecified[ICD10: R60.9] Diagnosis: Other specified soft tissue disorders[ICD10: M79.89] Katie Abdalla MD, [facility] CPT-4: 42475 12/06/2018 [id number] EST. PATIENT, LEVEL IV Diagnosis: Low back pain[ICD10: M54.5] Katie Abdalla MD, [facility] CPT-4: 79659 09/19/2017 ([id number]) 61066 EST. PATIENT, LEVEL III Diagnosis: Essential (primary) hypertension[ICD10: I10] Diagnosis: Epigastric pain[ICD10: R10.13] Tori Abdalla MD, [facility] CPT-4: 95878 07/21/2017 ([id number]) 73953 EST. PATIENT, LEVEL III Diagnosis: Low back pain[ICD10: M54.5] Tori Abdalla MD, [facility] CPT-4: 37345 02/03/2017 ([id number]) 95087 EST. PATIENT, LEVEL IV Diagnosis: Encounter for gynecological examination (general) (routine) without abnormal findings[ICD10: Z01.419] Tori Abdalla MD, [facility] CPT-4: 11359 10/17/2016 16802 EST. PATIENT, LEVEL III Diagnosis: Low back pain[ICD10: M54.5] Katie Abdalla MD, [facility] CPT-4: 69403 07/14/2015 ([id number]) 53136 EST. PATIENT, LEVEL III Diagnosis: ESSENTIAL HYPERTENSION[ICD9: 401.9] Marcela Abdalla MD [facility] CPT- 4: 49415 11/17/2014 ([id number]) 00994 EST. PATIENT, LEVEL III Diagnosis: ESSENTIAL HYPERTENSION[ICD9: 401.9] Diagnosis: HYPERLIPIDEMIA[ICD9: 272.4] Diagnosis: HYPOTHYROIDISM[ICD9: 244.9] Marcela Abdalla MD [facility] CPT-4: 13105 05/19/2014 ([id number]) 29919 EST. PATIENT, LEVEL IV Diagnosis: HYPOTHYROIDISM[ICD9: 244.9] Diagnosis: ESSENTIAL HYPERTENSION[SNOMED: 83648853] Marcela Abdalla MD [facility] CPT-4: 20545 11/04/2013 ([id number]) 10171 EST. PATIENT, LEVEL III Diagnosis: ESSENTIAL HYPERTENSION[SNOMED: 59857084] Marcela Abdalla MD [facility] CPT-4: 35159 08/05/2013 ([id number]) 29202 EST. PATIENT, LEVEL III Diagnosis: ESSENTIAL HYPERTENSION[SNOMED: 58533468] Marcela Abdalla MD [facility] CPT-4: 32383 05/22/2013 ([id number]) 16509 EST. PATIENT, LEVEL III Diagnosis: ESSENTIAL HYPERTENSION[SNOMED: 60379639] Marcela Abdalla MD [facility] CPT-4: 23068 02/20/2013 ([id number]) 46957 EST. PATIENT, LEVEL IV Diagnosis: ESSENTIAL HYPERTENSION[SNOMED: 49480821] Diagnosis: HYPERLIPIDEMIA[ICD9: 272.4] Diagnosis: NONSPECIF SKIN ERUPT NEC[ICD9: 782.1] Marcela Abdalla MD [facility] CPT-4: 34277 10/25/2012 ([id number]) 01110 EST. PATIENT, LEVEL IV Diagnosis: ESSENTIAL HYPERTENSION[SNOMED: 62681508] Diagnosis: HYPERLIPIDEMIA[ICD9: 272.4] Marcela Abdalla MD [facility] CPT-4: 52950 07/04/2012 ([id number]) 72374 EST. PATIENT, LEVEL IV Diagnosis: ESSENTIAL HYPERTENSION[SNOMED: 18023787] Diagnosis: HYPERLIPIDEMIA[ICD9: 272.4] Marcela Abdalla MD [facility] CPT-4: 41741 12/26/2011 ([id number]) 88411 EST. PATIENT, LEVEL IV Diagnosis: ESSENTIAL HYPERTENSION[SNOMED: 56854477] Diagnosis: HYPERLIPIDEMIA[ICD9: 272.4] Marcela Abdalla MD, [facility] CPT-4: 35084 10/26/2011 ([id number]) 72114 EST. PATIENT, LEVEL IV Diagnosis: BPPV (benign paroxysmal positional vertigo)[ICD9: 386.11] Diagnosis: ESSENTIAL HYPERTENSION[SNOMED: 90802365] Tori Abdalla MD, [facility] CPT-4: 43922 09/15/2011 12800 EST. PATIENT, LEVEL III Diagnosis: Lesion of oral mucosa[ICD9: 528.9] Diagnosis: Rash and nonspecific skin eruption[ICD9: 782.1] Marcela Abdalla MD, [facility] CPT-4: 56061 05/10/2011 [id number] EST. PATIENT, LEVEL IV Diagnosis: ESSENTIAL HYPERTENSION[SNOMED: 72683691] Diagnosis: Mouth sores[ICD9: 528.9] Marcela Abdalla MD, [facility] CPT-4: 51907 04/27/2011 Plan of Care Planned Activity Notes Codes Status Date Visit Plan: Ongoing swelling to neck/clavicle area - will order imaging and treat as indicated 12/12/2018 Appointment: Katie Ellis WPtel: [address] [place], [place] [phone] (30 min) Complex 12/12/2018 Patient Education: Patient Medication Summary Completed 12/12/2018 Visit Plan: Neck, paracervical muscle tenderness and edema - will consider ordering a CT - The pt is to use prn antiinflammatories to manage acute pain. The patient is to call the office if the pain is worsening or does not improve. 12/06/2018 Appointment: Katie Ellis WPtel: [address] [place], [place] [phone] (30 min) Complex 12/06/2018 Patient Education: Patient Medication Summary Completed [...] 06/14/2018 Care Plan: Referral Order SNOMED-CT : [id number] Pending 06/14/2018 App[facility]ment: [facility] [phone] [id number] [facility] - Annual Wellness Visit 02/12/2018 Visit Plan: [...] not improve. 09/19/2017 Appointment: [facility] [phone] [id number] ([facility] min) Complex 09/19/2017 Patient Education: Patient [...] is to call for acute concerns. Epigastric [id number] prilosec daily-monitor symptoms and call if abdominal pain does not improve or if any worse 07/21/2017 Appointment: Tori Duvall WPtel: [phone] [facility] [id number] [place] (30 min) Complex 07/21/2017 Patient Education: Patient [...] surrogate. 02/06/2017 Appointment: Katie Ellis WPtel: [phone] [facility] [facility] - Annual Wellness Visit 02/06/2017 Patient Education: [...] the office. 02/03/2017 Appointment: Tori Duvall WPtel: [facility] (30 min) Complex 02/03/2017 Patient Education: Patient [...] Recommend mammogram 10/17/2016 Appointment: Tori Duvall WPtel: [facility]5 [phone] Well [facility] 10/17/2016 Patient Education: Patient Medication [...] home. 11/17/2014 Appointment: Marcela Abdalla WPtel: [phone] [facility] Follow up 11/17/2014 Patient Education: Patient Medication [...] at home. 05/19/2014 Appointment: Marcela Abdalla WPtel: [facility]5 [facility] Follow up 05/19/2014 Patient Education: Patient Medication [...] of control. 11/04/2013 Appointment: Marcela Abdalla WPtel: [facility]5 [facility] Follow up 11/04/2013 Patient Education: Patient Medication [...] at home. 08/05/2013 Appointment: Marcela Abdalla WPtel: [facility]5 [facility] Follow up 08/05/2013 Patient Education: [...] home. 05/22/2013 [facility]ment: [phone] [facility] 05/22/2013 Patient Education: Patient [...] home. 02/20/2013 Appointment: Marcel[facility]alla [facility]el[phone] Follow up 02/20/2013 Patient Education: Patient [...] basis 10/25/2012 Appointment: Marcel[facility]alla [facility]Ptel[phone] Follow up 10/25/2012 Patient Education: Patient [...] to medications. 07/04/2012 Appointment: Marcela Abdalla WPtel: [phone] [facility] [place] [address] Patient Preventative visit 07/04/2012 Patient Education: Patient Medication Summary Completed 07/04/2012 Patient Education: 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 Completed 07/04/2012 Appointment: Marcela Abdalla WPtel: [facility]8 [facility]6[address] Lab Draw 07/02/2012 Patient Education: Patient [...] to medications. 12/26/2011 Appointment: Marcela Abdalla WPtel: [phone] [facility] Other 12/26/2011 Patient Education: Patient [...] medications. 10/26/2011 Appointment: Marcel[facility]alla [facility]el[phone] Other 10/26/2011 Patient Education: Patient Medication Summary Completed 10/26/2011 Patient Education: High Blood Pressure: Essential 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 Completed 10/26/2011 Appointment: Marcel[facility] Abdalla WPtel: [phone] [place] Lab Draw 10/20/2011 Patient Education: [...] vision changes. 09/15/2011 Appointment: Tori Duvall [facility]el: [phone] [place] Lab Draw 09/15/2011 Patient Education: Patient Medication Summary Completed 09/15/2011 Patient Education: .Amazing charts Paroxysmal positional vertigo Completed 09/15/2011 Patient Education: High Blood Pressure: Essential 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 Completed 09/15/2011 Appointment: Marcela Abdalla WPtel: [facility]3 [facility] [place] Lab Draw 06/07/2011 Patient Education: Patient [...] the rash. 05/10/2011 Appointment: Marcela Abdalla WPtel: [address] [place], [place] [id number] [place] Other 05/10/2011 Patient Education: Patient Medication Summary Completed 05/10/2011 Appointment: Marcela Abdalla WPtel: [address] [place], [place] [id number] Follow up 05/04/2011 Visit Plan: HTN- improved from high blood pressure earlier this week No change in current medication. Try to avoid high salt containing foods. 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 RECOMMEND MAMMMOGRAM, FASTING LABS AND PNEUMONIA/FLU VACCINES [...] months based on previous levels of control. RECOMMEND MAMMMOGRAM, FASTING LABS AND PNEUMONIA/FLU VACCINES [...] knees-wants synvisc injection -refer to Dr Carrington . 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 - well controlled - continue [...] in blood pressure readings at home. . Low back pain- the patient was instructed in appropriate posture, need for weight loss to alleviate abdominal obesity that is worsening the patient's back pain.. The pt is to use prn antiinflammatories to manage acute pain. The patient is to call the office if the pain is worsening or does not improve. Kenalog injection today in the office. . Low back pain- the patient was instructed in appropriate posture, need for weight loss to alleviate abdominal obesity that is worsening the patient's back pain.. The pt is to use prn antiinflammatories to manage acute pain. The patient is to call the office if the pain is worsening or does not improve. . Well Adult Female - exam completed. Pap and breast exam completed. Pt will be called with results of her testing. She was advised to continue with yearly annual exams. Safe sex practices discussed during office visit today. Call if any abnormal gynecologic issues during the next year, otherwise, RTC yearly or prn. Recommend mammogram . 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 - well controlled - continue with current medications, continue with no added salt diet. Pt has been encouraged to exercise daily. The pt has been advised to call the office if there are any acute concerns about change in blood pressure readings at home. . 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 PRILOSEC OTC DAILY . 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 - uncontrolled [...] is to call for acute concerns. Epigastric [id number] prilosec daily-monitor symptoms and call if abdominal pain does not improve or if any worse . Mouth lesion - appears to be slowly healing, continue with low acid and low salt foods, if the lesion worsens, call clinic. Rash in groin and fadumo-area - previously visualized, continue with diflucan prn for exacerbation of the rash. . HTN- improved from high blood pressure earlier this week No change in current medication. Try to avoid high salt containing foods. 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 - well controlled - continue [...] in blood pressure readings at home. . Neck, paracervical muscle tenderness and edema - will consider ordering a CT - The pt is to use prn antiinflammatories to manage acute pain. The patient is to call the office if the pain is worsening or does not improve. . Sacroiliitis - back exercises discussed with [...] improve. . 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 - well controlled - pt [...]
--- OUTSIDE RECORDS SUMMARY | 2019-01-10 12:38 | XMS REPORT | CCD ---
Author Author [facility] Organization [facility] Address [address] [place] [address] Phone Care Team Providers Care Cabin Agent Name Role Phone PP Unavailable CCM Unavailable Summary Purpose Interface Exchange Insurance Providers Payer name Policy type / Coverage type Covered republican ID Effective Begin Date Effective End Date WPS Medicare Part B Medicare Part B [id number] Unknown Cigna Medicare Part B [id number] Unknown Family history Daughter Diagnosis Age At [...] Unknown 04/27/2011 Number of children Unknown [id number] 04/27/2011 Employment Unknown Retired 04/27/[address]: [id number] Never smoker 04/27/[address]: 415328093 Never drinks alcohol 04/27/2011 Has the patient [...] Fill Instructions naproxen 500 mg tablet RxNorm: 924385 1 Tablet(s) PO BID 12/06/2018 12/10/2018 Inactive pravastatin 20 mg tablet RxNorm: 444309 1 Tablet(s) PO daily 10/03/2018 01/30/2019 Active pravastatin 20 mg tablet RxNorm: 640268 1 Tablet(s) PO daily 10/03/2018 10/02/2018 Inactive lisinopril 10 mg tablet RxNorm: 097760 TAKE ONE TABLET BY MOUTH ONCE DAILY IN THE EVENING 08/08/2018 No Stop Date Active prednisone 20 mg tablet RxNorm: 614556 2 Tablet(s) PO daily 09/19/2017 09/23/2017 Inactive lisinopril 10 mg tablet RxNorm: 597852 1 Tablet(s) PO QPM 07/21/2017 01/16/2018 Inactive Kenalog 40 mg/mL suspension for injection RxNorm: 6134862 1 Milliliter(s) Inj 02/03/2017 02/03/2017 Inactive Zocor 10 mg tablet RxNorm: 254862 1 Tablet(s) PO daily 05/14/2015 05/13/2015 Inactive Zocor 10 mg tablet RxNorm: 786606 1 Tablet(s) PO daily 05/14/2015 05/06/2016 Inactive Zocor 10 mg tablet RxNorm: 879612 1 Tablet(s) PO daily 05/14/2015 05/07/2016 Inactive okklacta-ztetqlthe-cuhhombos 3.5 mg/g-10,000 unit/g-0.5 %topical cream RxNorm: 5512918 3 gtts TOP TID 11/17/2014 11/26/2014 Inactive [SAVINGS FOR NON-COVERED DRUGS -- BIN:[id number], PCN: [id number], Group: [id number], ID# [id number], Questions: . THIS IS NOT INSURANCE.] simvastatin 40 mg tablet RxNorm: 478897 1/2 Tablet(s) PO QHS 10/09/2013 11/03/2013 Inactive Synthroid 25 mcg tablet RxNorm: 500439 1 Tablet(s) PO daily 08/19/2013 11/11/2014 Inactive clobetasol 0.05 % Topical Cream RxNorm: 138481 1 Application TOP TID PRN 04/05/2013 07/03/2013 Inactive nystatin 100,000 unit/gram Topical Powder RxNorm: 580469 Gram(s) TOP apply to affected area as needed 03/22/2013 10/16/2016 Inactive fluconazole 150 mg tablet RxNorm: 940641 1 Tablet(s) PO 03/19/2013 03/18/2013 Inactive take one at outbreak and then use nystatin powder (she has nystatin at home) fluconazole 150 mg tablet RxNorm: 193511 1 Tablet(s) PO 03/19/2013 03/25/2013 Inactive take one at outbreak and then use nystatin powder (she has nystatin at home) simvastatin 40 mg tablet RxNorm: 307508 1/2 Tablet(s) PO QHS 03/18/2013 07/15/2013 Inactive Synthroid 25 mcg tablet RxNorm: 161682 1 Tablet(s) PO daily 03/18/2013 08/14/2013 Inactive clobetasol 0.05 % Topical Cream RxNorm: 701042 1 Application TOP TID PRN 10/25/2012 01/22/2013 Inactive Coreg 3.125 mg tablet RxNorm: 471153 1 Tablet(s) PO BID 04/17/2012 07/03/2012 Inactive Coreg 3.125 mg tablet RxNorm: 233584 1 Tablet(s) PO BID 03/16/2012 04/14/2012 Inactive Diflucan 150 mg Tab RxNorm: 178240 1 Tablet(s) PO daily 12/26/2011 01/22/2012 Inactive simvastatin 40 mg tablet RxNorm: 312892 1/2 Tablet(s) PO QHS 04/27/2011 03/17/2013 Inactive Vitamin C Oral RxNorm: Oral No Start Date 10/16/2016 Inactive Synthroid 25 mcg tablet RxNorm: 877995 Tablet(s) PO No Start Date 03/17/2013 Inactive coenzyme Q10 75 mg Cap RxNorm: 026149 1 Capsule(s) PO daily No Start Date 10/16/2016 Inactive Coreg 3.125 mg tablet RxNorm: 250353 1 Tablet(s) PO BID No Start Date 03/15/2012 Inactive simvastatin 40 mg Tab RxNorm: 300525 1 Tablet(s) PO QHS No Start Date 04/26/2011 Inactive aspirin 81 mg capsule,delayed release RxNorm: 646608 1 Capsule(s) PO daily No Start Date 10/16/2016 Inactive metoprolol succinate ER 50 mg tablet,extended release 24 hr RxNorm: 716582 1 Tablet(s) PO daily No Start Date 10/16/2016 Inactive lisinopril 20 mg tablet RxNorm: 950260 1 Tablet(s) PO as needed No Start Date 07/20/2017 Inactive Bystolic 5 mg Tab RxNorm: 485233 1 Tablet(s) PO daily No Start Date 10/30/2011 Inactive clobetasol 0.05 % Topical Cream RxNorm: 447604 TOP No Start Date 10/24/2012 Inactive omega-3 fatty acids 1,250 mg Cap RxNorm: 7512942 1 Capsule(s) PO daily No Start Date 10/16/2016 Inactive coenzyme Q10 oral RxNorm: 00829 oral No Start Date 06/13/2018 Inactive meclizine 12.5 mg Tab RxNorm: 569435 1/2-1 Tablet(s) PO Q6 PRN No Start Date 05/18/2014 Inactive promethazine 25 mg Rectal Suppository RxNorm: 041857 1 Suppository RTL Q6 PRN No Start Date 07/03/2012 Inactive nystatin 100,000 unit/gram Topical Powder RxNorm: 393744 Gram(s) TOP apply to affected area as needed No Start Date 03/21/2013 Inactive Medication Administered Medication Codes Instructions Start Date Status Kenalog 40 mg/mL suspension for injection RxNorm: 2427430 1Milliliter 02/03/2017 No longer Active Immunizations Vaccine Codes Date Status Influenza CVX: 141 05/22/2013 completed Assessments Condition Codes Effective Dates Edema, unspecified ICD-10: R60.9 ICD-9: 782.3 12/06/2018 Other specified soft tissue disorders ICD-10: M79.89 ICD-9: 729.81 12/06/2018 Bilateral primary osteoarthritis of knee ICD-10: M17.0 [...] For Visit Effective Dates Notes shoulder pain 12/06/2018 Annual Medicare Wellness Exam [...] Item Item Code Result Date Comp Metabolic Roj520 NA 140 mEq/L 12/07/2018 Comp Metabolic Hvv983 K 4.5 mEq/L 12/07/2018 Comp Metabolic Swx729 CL 105 mEq/L 12/07/2018 Comp Metabolic Qgp325 CO2 26.0 mEq/L 12/07/2018 Comp Metabolic Hjd967 ANION GAP 14 12/07/2018 Comp Metabolic Qqv360 GLUCOSE 90 mg/dL 12/07/2018 Comp Metabolic Phe875 Creat 0.9 mg/dL 12/07/2018 Comp Metabolic Sfu620 eGFR 66 ml/min/1.73m2 12/07/2018 Comp Metabolic Izh581 BUN 22 mg/dL 12/07/2018 Comp Metabolic Gmy266 B/C Ratio 25.3 Ratio 12/07/2018 Comp Metabolic Ckf182 CALCIUM 9.7 mg/dL 12/07/2018 Comp Metabolic Ugm093 ALK PHOS 67 U/L 12/07/2018 Comp Metabolic Bfk525 AST(SGOT) 22 U/L 12/07/2018 Comp Metabolic Uza379 ALT(SGPT) 16 U/L 12/07/2018 Comp Metabolic Yvf619 BILI T 0.4 mg/dL 12/07/2018 Comp Metabolic Fjj202 ALBUMIN 3.9 g/dL 12/07/2018 Comp Metabolic Anc663 TPRO 6.2 g/dL 12/07/2018 Comp Metabolic Mqb066 GLOB 2.3 g/dL 12/07/2018 Comp Metabolic Fkr432 A/G Ratio 1.7 Ratio 12/07/2018 Comp Metabolic Ocd637 Osmo 282 mOsmo 12/07/2018 Cbc With Differential [...] 31.1 pg 12/06/2018 Cbc With Differential Ord2 [place]% 12.2 % 12/06/2018 Cbc With Differential Ord2 [...] 1.63 K/ul 12/06/2018 Cbc With Differential Ord2 [place] ABS# 0.6 K/ul 12/06/2018 Cbc With Differential [...] 31.5 pg 06/18/2018 Cbc With Differential Ord2 [place]% 13.3 % 06/18/2018 Cbc With Differential Ord2 [...] 1.82 K/ul 06/18/2018 Cbc With Differential Ord2 [place] ABS# 0.6 K/ul 06/18/2018 Cbc With Differential Ord2 Eos ABS# 0.2 K/ul 06/18/2018 Cbc With Differential Ord2 Baso ABS# 0.1 K/ul 06/18/2018 Lipid Ord30 CHOL 259 mg/dL 06/18/2018 Lipid Ord30 HDL 59.0 mg/dl 06/18/2018 Lipid Ord30 TRIG 115 mg/dL 06/18/2018 Lipid Ord30 LDL 177 mg/dL 06/18/2018 Lipid Ord30 C/HDL 4.4 Ratio 06/18/2018 Tsh Ord6 TSH (3rd IS) 2.11 uIU/mL 06/18/2018 Comp Metabolic Skd799 NA 141 mEq/L 06/18/2018 Comp Metabolic Jjt220 K 4.7 mEq/L 06/18/2018 Comp Metabolic Bmr929 CL 106 mEq/L 06/18/2018 Comp Metabolic Jlu546 CO2 28.0 mEq/L 06/18/2018 Comp Metabolic Hyx531 ANION GAP 12 06/18/2018 Comp Metabolic Yev636 GLUCOSE 85 mg/dL 06/18/2018 Comp Metabolic Ltr627 Creat 0.8 mg/dL 06/18/2018 Comp Metabolic Pwy314 eGFR 71 ml/min/1.73m2 06/18/2018 Comp Metabolic Wtz673 BUN 18 mg/dL 06/18/2018 Comp Metabolic Fns417 B/C Ratio 22.2 Ratio 06/18/2018 Comp Metabolic Gpd271 CALCIUM 9.4 mg/dL 06/18/2018 Comp Metabolic Cfz689 ALK PHOS 69 U/L 06/18/2018 Comp Metabolic Zta971 AST(SGOT) 22 U/L 06/18/2018 Comp Metabolic Klv890 ALT(SGPT) 16 U/L 06/18/2018 Comp Metabolic Pls156 BILI T 0.5 mg/dL 06/18/2018 Comp Metabolic Yxa047 ALBUMIN 3.9 g/dL 06/18/2018 Comp Metabolic Wjc662 TPRO 6.5 g/dL 06/18/2018 Comp Metabolic Buo088 GLOB 2.6 g/dL 06/18/2018 Comp Metabolic Qgo793 A/G Ratio 1.5 Ratio 06/18/2018 Comp Metabolic Bdp853 Osmo 282 mOsmo 06/18/2018 Lipid Ord30 CHOL [...] 31.1 pg 10/28/2016 Cbc With Differential Ord2 [place]% 11.9 % 10/28/2016 Cbc With Differential Ord2 [...] 2.07 K/ul 10/28/2016 Cbc With Differential Ord2 [place] ABS# 0.6 K/ul 10/28/2016 Cbc With Differential Ord2 Eos ABS# 0.2 K/ul 10/28/2016 Cbc With Differential Ord2 Baso ABS# 0.1 K/ul 10/28/2016 Tsh Ord6 hTSH II 2.77 uIU/mL 10/28/2016 Comp Metabolic Cpz685 NA 138 mEq/L 10/28/2016 Comp Metabolic Snt194 K 4.6 mEq/L 10/28/2016 Comp Metabolic Piy320 CL 104 mEq/L 10/28/2016 Comp Metabolic Fqo759 CO2 29.0 mEq/L 10/28/2016 Comp Metabolic Wuw952 ANION GAP 10 10/28/2016 Comp Metabolic Bsy378 GLUCOSE 88 mg/dL 10/28/2016 Comp Metabolic Yvk964 Creat 0.9 mg/dL 10/28/2016 Comp Metabolic Wpq338 eGFR 60 ml/min/1.73m2 10/28/2016 Comp Metabolic Aps150 BUN 27 mg/dL 10/28/2016 Comp Metabolic Khg381 B/C Ratio 28.7 Ratio 10/28/2016 Comp Metabolic Aqu458 CALCIUM 9.7 mg/dL 10/28/2016 Comp Metabolic Grz044 ALK PHOS 58 U/L 10/28/2016 Comp Metabolic Iul076 AST(SGOT) 20 U/L 10/28/2016 Comp Metabolic Hjq008 ALT(SGPT) 14 U/L 10/28/2016 Comp Metabolic Cyl506 BILI T 0.6 mg/dL 10/28/2016 Comp Metabolic Qrp377 ALBUMIN 3.6 g/dL 10/28/2016 Comp Metabolic Ulr549 TPRO 6.3 g/dL 10/28/2016 Comp Metabolic Neg784 GLOB 2.7 g/dL 10/28/2016 Comp Metabolic Nce061 A/G Ratio 1.3 Ratio 10/28/2016 Comp Metabolic Lhs425 Osmo 280 mOsmo 10/28/2016 LIPID GRP HDL TEST 60 MG/DL 05/13/2015 LIPID GRP TRIG 100 MG/DL 05/13/2015 LIPID GRP TEST LDL 190 MG/DL 05/13/2015 LIPID GRP CHOL 270 MG/DL 05/13/2015 LIPID GRP RCHOL/HDL 4.50 RATIO 05/13/2015 LIPID GRP NON-HDL CH 210 MG/DL 05/13/2015 LIVER PNL 8159049 AST 29 U/L 05/13/2015 LIVER PNL 3545225 ALK PHOS 70 U/L 05/13/2015 LIVER PNL 6239867 BILI TOT 0.5 MG/DL 05/13/2015 LIVER PNL 0457733 ALT 27 IU/L 05/13/2015 LIVER PNL 5412447 BILI DIR 0.1 MG/DL 05/13/2015 LIVER PNL 3592774 ALBUMIN 3.8 GM/DL 05/13/2015 LIVER PNL 9543633 PROT TOT 7.3 GM/DL 05/13/2015 TSH 0164392 TSH 3.354 uIU/ML 07/24/2013 LIPID GRP HDL TEST 46 MG/DL 07/24/2013 LIPID GRP TRIG 86 MG/DL 07/24/2013 LIPID GRP TEST LDL 113 MG/DL 07/24/2013 LIPID GRP CHOL 176 MG/DL 07/24/2013 LIPID GRP RCHOL/HDL 3.83 RATIO 07/24/2013 CHEM 14 4456737 AST 25 U/L 07/24/2013 CHEM 14 3463855 ALT 20 IU/L 07/24/2013 CHEM 14 9095309 BUN 18 MG/DL 07/24/2013 CHEM 14 4450505 ALBUMIN 4.0 GM/DL 07/24/2013 CHEM 14 9387737 CHLORIDE 105 MMOL/L 07/24/2013 CHEM 14 3746729 BILI TOT 0.4 MG/DL 07/24/2013 CHEM 14 4804699 ALK PHOS 57 U/L 07/24/2013 CHEM 14 6149516 SODIUM 139 MMOL/L 07/24/2013 CHEM 14 0016863 CREATININE 0.83 MG/DL 07/24/2013 CHEM 14 1027833 CALCIUM 10.0 MG/DL 07/24/2013 CHEM 14 2146314 POTASSIUM 4.5 MMOL/L 07/24/2013 CHEM 14 2034649 PROT TOT 6.3 GM/DL 07/24/2013 CHEM 14 8184008 GLUCOSE 91 MG/DL 07/24/2013 CHEM 14 0717376 BICARB 28 MMOL/L 07/24/2013 CHEM 14 2941995 ANION GAP 6 MEQ/L 07/24/2013 FREE T4 1751872 FREE T4 1.17 NG/DL 07/24/2013 GFR CALC 2201659 GFR AA >60 ML/MIN 07/24/2013 GFR CALC 1102371 GFR NON-AA >60 ML/MIN 07/24/2013 CBC 9689670 WBC 5.7 10e9/L 07/24/2013 CBC 3322510 RBC 4.39 10e12/L 07/24/2013 CBC 7548944 HGB 13.6 g/dL 07/24/2013 CBC 0858628 HCT DET 41.7 % 07/24/2013 CBC 6647109 MCV 95.0 fL 07/24/2013 CBC 3591937 MCH 31.0 pg 07/24/2013 CBC 9886399 MCHC 32.6 g/dL 07/24/2013 CBC 8937843 PLT 341 10e9/L 07/24/2013 CBC 1596975 MPV 9.7 fL 07/24/2013 CBC 2967952 [place] % 37.9 % 07/24/2013 CBC 5030229 LY % 38.1 % 07/24/2013 CBC 7612348 MON % 12.0 % 07/24/2013 CBC 5478484 EOS % 9.9 % 07/24/2013 CBC 6206333 BASO % 2.1 % 07/24/2013 CBC 0511890 RDW 14.1 % 07/24/2013 CBC 5522271 ABS RORO 2.16 10e9/L 07/24/2013 CBC 7608364 ABS LYMPH 2.17 10e9/L 07/24/2013 CBC 6081416 ABS MONO 0.68 10e9/L 07/24/2013 CBC 2763148 ABS EOS 0.56 10e9/L 07/24/2013 CBC 5810649 ABS BASO 0.12 10e9/L 07/24/2013 CBC 5756552 RDW-SD 47.2 fL 07/24/2013 FREE T4 4473730 FREE T4 0.97 NG/DL 03/14/2013 TSH 5941821 TSH 6.175 uIU/ML 03/13/2013 LIPID GRP HDL TEST 51 MG/DL 03/13/2013 LIPID GRP TRIG 182 MG/DL 03/13/2013 LIPID GRP TEST LDL 191 MG/DL 03/13/2013 LIPID GRP CHOL 278 MG/DL 03/13/2013 LIPID GRP RCHOL/HDL 5.45 RATIO 03/13/2013 CHEM 14 0611357 AST 23 U/L 03/13/2013 CHEM 14 6019353 ALT 18 IU/L 03/13/2013 CHEM 14 0109085 BUN 21 MG/DL 03/13/2013 CHEM 14 5426282 ALBUMIN 4.1 GM/DL 03/13/2013 CHEM 14 9675515 CHLORIDE 107 MMOL/L 03/13/2013 CHEM 14 8380988 BILI TOT 0.4 MG/DL 03/13/2013 CHEM 14 8758890 ALK PHOS 57 U/L 03/13/2013 CHEM 14 5017418 SODIUM 140 MMOL/L 03/13/2013 CHEM 14 4080780 CREATININE 0.94 MG/DL 03/13/2013 CHEM 14 2650596 CALCIUM 9.8 MG/DL 03/13/2013 CHEM 14 7567523 POTASSIUM 4.4 MMOL/L 03/13/2013 CHEM 14 7211560 PROT TOT 6.1 GM/DL 03/13/2013 CHEM 14 8841261 GLUCOSE 90 MG/DL 03/13/2013 CHEM 14 3379447 BICARB 27 MMOL/L 03/13/2013 CHEM 14 0878596 ANION GAP 6 MEQ/L 03/13/2013 GFR CALC 3926712 GFR AA >60 ML/MIN 03/13/2013 GFR CALC 0417670 GFR NON-AA 57.0L ML/MIN 03/13/2013 CBC 4152590 WBC 4.9 10e9/L 07/02/2012 CBC 4634323 RBC 4.20 10e12/L 07/02/2012 CBC 2301354 HGB 13.3 g/dL 07/02/2012 CBC 2427146 HCT DET 40.2 % 07/02/2012 CBC 9633982 MCV 95.7 fL 07/02/2012 CBC 5832415 MCH 31.7 pg 07/02/2012 CBC 0355160 MCHC 33.1 g/dL 07/02/2012 CBC 2650111 PLT 317 10e9/L 07/02/2012 CBC 2327044 MPV 10.3 fL 07/02/2012 CBC 3545965 [place] % 40.1 % 07/02/2012 CBC 8112657 LY % 42.8 % 07/02/2012 CBC 7264699 MON % 12.0 % 07/02/2012 CBC 9007247 EOS % 4.3 % 07/02/2012 CBC 2283484 BASO % 0.8 % 07/02/2012 CBC 7033510 RDW 13.9 % 07/02/2012 CBC 8685635 ABS RORO 1.96 10e9/L 07/02/2012 CBC 6890215 ABS LYMPH 2.10 10e9/L 07/02/2012 CBC 9732022 ABS MONO 0.59 10e9/L 07/02/2012 CBC 3287832 ABS EOS 0.21 10e9/L 07/02/2012 CBC 7894951 ABS BASO 0.04 10e9/L 07/02/2012 CBC 2980072 RDW-SD 47.3 fL 07/02/2012 CHEM 14 4530792 AST 23 U/L 07/02/2012 CHEM 14 6382015 ALT 20 IU/L 07/02/2012 CHEM 14 6544505 BUN 14 MG/DL 07/02/2012 CHEM 14 7290441 ALBUMIN 3.8 GM/DL 07/02/2012 CHEM 14 3451432 CHLORIDE 108 MMOL/L 07/02/2012 CHEM 14 4787602 BILI TOT 0.4 MG/DL 07/02/2012 CHEM 14 0199792 ALK PHOS 66 U/L 07/02/2012 CHEM 14 9615928 SODIUM 143 MMOL/L 07/02/2012 CHEM 14 2563882 CREATININE 0.88 MG/DL 07/02/2012 CHEM 14 0110231 CALCIUM 9.7 MG/DL 07/02/2012 CHEM 14 9360671 POTASSIUM 4.6 MMOL/L 07/02/2012 CHEM 14 8679884 PROT TOT 6.4 GM/DL 07/02/2012 CHEM 14 5852353 GLUCOSE 87 MG/DL 07/02/2012 CHEM 14 3213564 BICARB 28 MMOL/L 07/02/2012 CHEM 14 1629061 ANION GAP 7 MEQ/L 07/02/2012 GFR CALC 1985368 GFR AA >60 ML/MIN 07/02/2012 GFR CALC 7912298 GFR NON-AA >60 ML/MIN 07/02/2012 FREE T4 1891305 FREE T4 1.10 NG/DL 07/02/2012 TSH 0140809 TSH 2.909 uIU/ML 07/02/2012 LIPID GRP HDL TEST 54 MG/DL 07/02/2012 LIPID GRP TRIG 102 MG/DL 07/02/2012 LIPID GRP TEST LDL 109 MG/DL 07/02/2012 LIPID GRP CHOL 183 MG/DL 07/02/2012 LIPID GRP RCHOL/HDL 3.39 RATIO 07/02/2012 URINALYSIS NONAUTO W/O SCOPE 20052 Specific Orient 1.005 DateTime(Free Text in Aprima) URINALYSIS NONAUTO W/O SCOPE 71526 PH 5.0 DateTime(Free Text in Aprima) URINALYSIS NONAUTO W/O SCOPE 98577 GLUCOSE NEG DateTime(Free Text in Aprima) URINALYSIS NONAUTO W/O SCOPE 36621 Protein NEG DateTime(Free Text in Aprima) URINALYSIS NONAUTO W/O SCOPE 21745 Blood NEG DateTime(Free Text in Aprima) URINALYSIS NONAUTO W/O SCOPE 73584 Bilirubin NEG DateTime(Free Text in Aprima) URINALYSIS NONAUTO W/O SCOPE 53542 Ketones NEG DateTime(Free Text in Aprima) URINALYSIS NONAUTO W/O SCOPE 86352 Urobilinogen NEG DateTime(Free Text in Aprima) URINALYSIS NONAUTO W/O SCOPE 06404 Nitrite NEG DateTime(Free Text in Aprima) URINALYSIS NONAUTO W/O SCOPE 12822 Leukocytes NEG DateTime(Free Text in Apr) Review of Systems System Result Effective Dates Constitutional No recent illness 12/06/2018 Constitutional No [...] lips 06/14/2018 None Full Exam - General 1995 Ears/Nose/Throat oral cavity/pharynx/larynx Overall: oral mucosa clear [...] retractions 09/19/2017 None Full Exam - General 1994 Respiratory respiratory effort/rhythm Overall: normal rate 09/19/2017 None Full Exam - General 1994 Cardiovascular extremities Overall: no clubbing 09/19/2017 None [...] clear 08/05/2013 None Full Exam - General 1995 Ears/Nose/Throat lips/teeth/gingiva Overall: benign lips 08/05/2013 None [...] General 1994 Ears/Nose/Throat lips/teeth/gingiva Overall: benign lips 02/20/2013 None [...] benign 12/26/2011 None Full Exam - General 1995 Ears/Nose/Throat oral cavity/pharynx/larynx Hard palate: ulcer 12/26/2011 [...] General 1995 Ears/Nose/Throat lips/teeth/gingiva Overall: benign lips 10/26/2011 None [...] lips 04/27/2011 None Full Exam - General 1995 Ears/Nose/Throat oral cavity/pharynx/larynx Hard palate: ulcer 04/27/2011 [...] INJ NOS CPT-4: J3301 02/03/2017 PAP CPT-4: 9665904 10/17/2016 ROUTINE VENIPUNCTURE CPT- 4: 61355 07/24/2013 ROUTINE VENIPUNCTURE CPT- 4: 49487 03/13/2013 PRESCRIP TRANSMIT VIA ERX SY CPT-4: G8553 10/25/2012 ROUTINE VENIPUNCTURE CPT- 4: 30450 07/02/2012 PRESCRIP TRANSMIT VIA ERX SY CPT-4: G8553 12/26/2011 ROUTINE VENIPUNCTURE CPT- 4: 41901 10/20/2011 URINALYSIS NONAUTO W/O SCOPE CPT-4: 89124 09/15/2011 PRESCRIP TRANSMIT VIA ERX SY CPT-4: G8553 09/15/2011 ROUTINE VENIPUNCTURE CPT- 4: 91901 06/07/2011 PRESCRIP TRANSMIT VIA ERX SY CPT-4: G8553 04/27/2011 Vital Signs Date Vital 12/06/2018 Blood Pressure 1: 180/86 Code: 8480-6 Heart Rate 1: 94 bpm Height: 5'4" SpO2: 96% 06/14/2018 Blood Pressure 1: 142/76 Code: 8480-6 BMI: 33.0 Code: 39080-6 Heart Rate 1: 72 bpm Height: 5'4" SpO2: 97% Waist Measure (cm): 107 cm Weight: 195 lbs 09/19/2017 Blood Pressure 1: 148/70 Code: 8480-6 BMI: 33.3 Code: 87596-6 Heart Rate 1: 82 bpm Height: 5'4" SpO2: 98% Weight: 197 lbs 07/21/2017 Blood Pressure 1: 160/62 Code: 8480-6 Blood Pressure 1: 144/68 Code: 8480-6 BMI: 33.3 Code: 03678-5 Heart Rate 1: 75 bpm Height: 5'4" SpO2: 98% Weight: 197 lbs 02/06/2017 Blood Pressure 1: 142/84 Code: 8480-6 BMI: 32.1 Code: 85162-9 Heart Rate 1: 76 bpm Height: 5'4" SpO2: 96% Weight: 190 lbs 02/03/2017 Blood Pressure 1: 142/84 Code: 8480-6 BMI: 32.2 Code: 00663-3 Heart Rate 1: 76 bpm Height: 5'4" SpO2: 96% Weight: 190 lbs 8 oz 10/17/2016 Blood Pressure 1: 136/90 Code: 8480-6 BMI: 31.6 Code: 49379-3 Heart Rate 1: 76 bpm Height: 5'4" SpO2: 98% Weight: 187 lbs 07/14/2015 Blood Pressure 1: 150/80 Code: 8480-6 BMI: 31.1 Code: 82924-9 Heart Rate 1: 74 bpm Height: 5'4" SpO2: 95% Weight: 184 lbs 11/17/2014 Blood Pressure 1: 142/88 Code: 8480-6 BMI: 32.3 Code: 24079-5 Heart Rate 1: 72 bpm Height: 5'4" Weight: 191 lbs 05/19/2014 Blood Pressure 1: 136/74 Code: 8480-6 BMI: 32.8 Code: 58171-0 Heart Rate 1: 72 bpm Height: 5'4" Weight: 194 lbs 11/04/2013 Blood Pressure 1: 154/76 Code: 8480-6 BMI: 31.4 Code: 89661-8 Heart Rate 1: 76 bpm Height: 5'4" Weight: 186 lbs 08/05/2013 Blood Pressure 1: 150/78 Code: 8480-6 BMI: 30.9 Code: 91281-2 Heart Rate 1: 60 bpm Height: 5'4" Weight: 183 lbs 05/22/2013 Blood Pressure 1: 156/76 Code: 8480-6 BMI: 31.8 Code: 23794-6 Heart Rate 1: 72 bpm Height: 5'4" Weight: 188 lbs 02/20/2013 Blood Pressure 1: 138/78 Code: 8480-6 BMI: 32.1 Code: 09811-7 Heart Rate 1: 72 bpm Height: 5'4" Weight: 190 lbs 10/25/2012 Blood Pressure 1: 138/82 Code: 8480-6 BMI: 31.8 Code: 43837-4 Heart Rate 1: 72 bpm Height: 5'4" Weight: 188 lbs 07/04/2012 Blood Pressure 1: 136/70 Code: 8480-6 Heart Rate 1: 72 bpm Weight: 187 lbs 12/26/2011 Blood Pressure 1: 152/82 Code: 8480-6 BMI: 30.4 Code: 94296-4 Heart Rate 1: 78 bpm Height: 5'4" Respiratory Rate: 16 bpm Weight: 180 lbs 10/26/2011 Blood Pressure 1: 140/64 Code: 8480-6 Heart Rate 1: 64 bpm Weight: 181 lbs 8 oz 09/15/2011 Blood Pressure 1: 152/82 Code: 8480-6 BMI: 30.8 Code: 59998-0 Heart Rate 1: 60 bpm Height: 5'4" Temperature: 36.8 (C) / 98.3 (F) Weight: 182 lbs 06/07/2011 Blood Pressure 1: 154/80 Code: 8480-6 05/10/2011 Blood Pressure 1: 122/66 Code: 8480-6 BMI: 30.7 Code: 08547-2 Heart Rate 1: 66 bpm Height: 5'4" Respiratory Rate: 12 bpm Weight: 181 lbs 8 oz 04/27/2011 Blood Pressure 1: 136/70 Code: 8480-6 BMI: 30.6 Code: 72983-3 Heart Rate 1: 72 bpm Height: 5'4" Respiratory Rate: 12 bpm Weight: 181 lbs Functional Status No Functional Status data History of Present Illness Symptom Name Status Result Effective Date Notes Location on the right shoulder 12/06/2018 None [...] data Encounters Encounter Performer Location Codes Date 35162 EST. PATIENT, LEVEL III Diagnosis: Edema, unspecified[ICD10: R60.9] Diagnosis: Other specified soft tissue disorders[ICD10: M79.89] [facility] CPT-4: 02235 12/06/2018 [id number] EST. PATIENT, LEVEL IV Diagnosis: Low back pain[ICD10: M54.5] Katie Abdalla MD, [facility] CPT-4: 93217 09/19/2017 ([id number]) 38070 EST. PATIENT, LEVEL III Diagnosis: Essential (primary) hypertension[ICD10: I10] Diagnosis: Epigastric pain[ICD10: R10.13] Tori Abdalla MD, [facility] CPT-4: 93571 07/21/2017 ([id number]) 98044 EST. PATIENT, LEVEL III Diagnosis: Low back pain[ICD10: M54.5] Tori Abdalla MD, [facility] CPT-4: 83655 02/03/2017 ([id number]) 32791 EST. PATIENT, LEVEL IV Diagnosis: Encounter for gynecological examination (general) (routine) without abnormal findings[ICD10: Z01.419] Tori Abdalla MD, [facility] CPT-4: 38353 10/17/2016 18514 EST. PATIENT, LEVEL III Diagnosis: Low back pain[ICD10: M54.5] Katie Abdalla MD, [facility] CPT-4: 59002 07/14/2015 ([id number]) 51704 EST. PATIENT, LEVEL III Diagnosis: ESSENTIAL HYPERTENSION[ICD9: 401.9] Marcela Abdalla MD, [facility] CPT- 4: 86493 11/17/2014 ([id number]) 10126 EST. PATIENT, LEVEL III Diagnosis: ESSENTIAL HYPERTENSION[ICD9: 401.9] Diagnosis: HYPERLIPIDEMIA[ICD9: 272.4] Diagnosis: HYPOTHYROIDISM[ICD9: 244.9] Marcela Abdalla MD, [facility] CPT-4: 81627 05/19/2014 ([id number]) 52287 EST. PATIENT, LEVEL IV Diagnosis: HYPOTHYROIDISM[ICD9: 244.9] Diagnosis: ESSENTIAL HYPERTENSION[SNOMED: 36066828] Marcela Abdalla MD, [facility] CPT-4: 24075 11/04/2013 ([id number]) 38090 EST. PATIENT, LEVEL III Diagnosis: ESSENTIAL HYPERTENSION[SNOMED: 53090941] Marcela Abdalla MD, [facility] CPT-4: 01541 08/05/2013 ([id number]) 41946 EST. PATIENT, LEVEL III Diagnosis: ESSENTIAL HYPERTENSION[SNOMED: 58101016] Marcela Abdalla MD [facility] CPT-4: 81001 05/22/2013 ([id number]) 25012 EST. PATIENT, LEVEL III Diagnosis: ESSENTIAL HYPERTENSION[SNOMED: 43330320] Marcela Abdalla MD [facility] CPT-4: 80628 02/20/2013 ([id number]) 18172 EST. PATIENT, LEVEL IV Diagnosis: ESSENTIAL HYPERTENSION[SNOMED: 65448079] Diagnosis: HYPERLIPIDEMIA[ICD9: 272.4] Diagnosis: NONSPECIF SKIN ERUPT NEC[ICD9: 782.1] Marcela Abdalla MD [facility] CPT-4: 17332 10/25/2012 ([id number]) 87741 EST. PATIENT, LEVEL IV Diagnosis: ESSENTIAL HYPERTENSION[SNOMED: 25834143] Diagnosis: HYPERLIPIDEMIA[ICD9: 272.4] Marcela Abdalla MD [facility] CPT-4: 36251 07/04/2012 ([id number]) 88352 EST. PATIENT, LEVEL IV Diagnosis: ESSENTIAL HYPERTENSION[SNOMED: 94468517] Diagnosis: HYPERLIPIDEMIA[ICD9: 272.4] Marcela Abdalla MD [facility] CPT-4: 06527 12/26/2011 ([id number]) 09802 EST. PATIENT, LEVEL IV Diagnosis: ESSENTIAL HYPERTENSION[SNOMED: 27138845] Diagnosis: HYPERLIPIDEMIA[ICD9: 272.4] Marcela Abdalla MD [facility] CPT-4: 31275 10/26/2011 ([id number]) 58553 EST. PATIENT, LEVEL IV Diagnosis: BPPV (benign paroxysmal positional vertigo)[ICD9: 386.11] Diagnosis: ESSENTIAL HYPERTENSION[SNOMED: 95950145] Tori Abdalla MD [facility] CPT-4: 89311 09/15/2011 07078 EST. PATIENT, LEVEL III Diagnosis: Lesion of oral mucosa[ICD9: 528.9] Diagnosis: Rash and nonspecific skin eruption[ICD9: 782.1] Marcela Abdalla MD [facility] CPT-4: 15978 05/10/2011 26149 EST. PATIENT, LEVEL IV Diagnosis: ESSENTIAL HYPERTENSION[SNOMED: 69087156] Diagnosis: Mouth sores[ICD9: 528.9] [facility] CPT-4: 49902 04/27/2011 Plan of Care Planned Activity Notes Codes Status Date Visit Plan: Neck, paracervical muscle tenderness and edema - will consider ordering a CT - The pt is to use prn antiinflammatories to manage acute pain. The patient is to call the office if the pain is worsening or does not improve. 12/06/2018 App[facility]ment: [phone] ([facility] 12/06/2018 Patient Education: Patient [...] 06/14/2018 Care Plan: Referral Order SNOMED-CT : [id number] Pending 06/14/2018 Appointment: Katie Ellis WPtel: [phone] [id number] [place] [address] - Annual Wellness Visit 02/12/2018 Visit Plan: [...] improve. 09/19/2017 Appointment: [facility]el[phone] [facility] ([facility] Complex 09/19/2017 Patient Education: Patient [...] is to call for acute concerns. Epigastric lzkq-tqjnlzfw-vqztq prilosec daily-monitor symptoms and call if abdominal pain does not improve or if any worse 07/21/2017 Appointment: Tori Duvall [facility]Ptel[phone] [phone] [place] (30 min) Complex 07/21/2017 Patient Education: [...] surrogate. 02/06/2017 Appointment: Katie Ellis [facility]Ptel[phone] [facility] [facility] - Annual Wellness Visit 02/06/2017 [...] office. 02/03/2017 Appointment: Tori Duvall [facility]Ptel[phone] [phone] (30 min) Complex 02/03/2017 Patient Education: Patient [...] Recommend mammogram 10/17/2016 Appointment: Tori Duvall [facility]Ptel[phone] [phone] [facility] 10/17/2016 Patient Education: Patient [...] home. 11/17/2014 Appointment: Marcel[phone] [facility] 11/17/2014 Patient Education: Patient Medication [...] home. 05/19/2014 Appointment: Marcel[facility]alla [phone] Follow up 05/19/2014 Patient Education: Patient Medication [...] control. 11/04/2013 Appointment: Marcela Abdalla WPtel: [phone] [facility] Follow up 11/04/2013 Patient Education: Patient [...] home. 08/05/2013 Appointment: Marcela Abdalla WPtel: [phone] [facility] Follow up 08/05/2013 Patient Education: Patient [...] home. 05/22/2013 Appointment: Marcela Abdalla WPtel: [phone] [facility] Follow up 05/22/2013 Patient Education: Patient [...] home. 02/20/2013 Appointment: Marcela Abdalla WPtel: [phone] [facility] Follow up 02/20/2013 Patient Education: Patient [...] continuous basis 10/25/2012 Appointment: Marcela Abdalla WPtel: [facility] Follow up 10/25/2012 Patient Education: Patient [...] medications. 07/04/2012 Appointment: Marcela Abdalla [phone] Established Patient Preventative visit 07/04/2012 Patient Education: Patient Medication Summary Completed 07/04/2012 Patient Education: 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 Completed 07/04/2012 Appointment: Marcela Abdalla [facility]Ptel[phone] [facility] [facility] 07/02/2012 Patient Education: Patient [...] to medications. 12/26/2011 Appointment: Marcela Abdalla WPtel: [address] [place] [address] Other 12/26/2011 Patient Education: Patient Medication Summary [...] medications. 10/26/2011 Appointment: Marcel[facility]alla [facility]el[phone] [facility] [place] Other 10/26/2011 Patient Education: Patient Medication Summary Completed 10/26/2011 Patient Education: High Blood Pressure: Essential 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 Completed 10/26/2011 Appointment: Marcela Abdalla [facility]Ptel: [phone] [facility] [place] Lab Draw 10/20/2011 Patient Education: [...] vision changes. 09/15/2011 Appointment: Tori Duvall WPtel: [phone] [phone] [place] Lab Draw 09/15/2011 Patient Education: Patient Medication Summary Completed 09/15/2011 Patient Education: .Amazing charts Paroxysmal positional vertigo Completed 09/15/2011 Patient Education: High Blood Pressure: Essential 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 Completed 09/15/2011 Appointment: Marcela Abdalla WPtel: [phone] [facility] [place] Lab Draw 06/07/2011 Patient Education: [...] the rash. 05/10/2011 Appointment: Marcela Abdalla WPtel: [facility] Other 05/10/2011 Patient Education: Patient Medication Summary Completed 05/10/2011 Appointment: Marcela Abdalla WPtel: [address] [place], [place] [id number] Follow up 05/04/2011 Visit Plan: HTN- improved from high blood pressure earlier this week No change in current medication. Try to avoid high salt containing foods. 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
--- OUTSIDE RECORDS SUMMARY | 2019-01-10 12:40 | XMS REPORT | CCD ---
Author Author [facility] Organization [facility] Address [address] [place] [address] Phone Care Team Providers Care Raise Miner Name Role Phone PP Unavailable CCM Unavailable Summary Purpose Interface Exchange Insurance Providers Payer name Policy type / Coverage type Covered constitution party ID Effective Begin Date Effective End Date WPS Medicare Part B Medicare Part B [id number] Unknown Cigna Medicare Part B [id number] Unknown Family history Daughter Diagnosis Age At [...] Unknown 04/27/2011 Number of children Unknown [id number] 04/27/2011 Employment Unknown Retired 04/27/[address]: 237054733 Never smoker 04/27/[address]: 294481676 Never drinks alcohol 04/27/2011 Has the patient [...] Fill Instructions naproxen 500 mg tablet RxNorm: 564191 1 Tablet(s) PO BID 12/06/2018 12/10/2018 Inactive pravastatin 20 mg tablet RxNorm: 763966 1 Tablet(s) PO daily 10/03/2018 01/30/2019 Active pravastatin 20 mg tablet RxNorm: 679546 1 Tablet(s) PO daily 10/03/2018 10/02/2018 Inactive lisinopril 10 mg tablet RxNorm: 635568 TAKE ONE TABLET BY MOUTH ONCE DAILY IN THE EVENING 08/08/2018 No Stop Date Active prednisone 20 mg tablet RxNorm: 223421 2 Tablet(s) PO daily 09/19/2017 09/23/2017 Inactive lisinopril 10 mg tablet RxNorm: 864041 1 Tablet(s) PO QPM 07/21/2017 01/16/2018 Inactive Kenalog 40 mg/mL suspension for injection RxNorm: 8385338 1 Milliliter(s) Inj 02/03/2017 02/03/2017 Inactive Zocor 10 mg tablet RxNorm: 406528 1 Tablet(s) PO daily 05/14/2015 05/13/2015 Inactive Zocor 10 mg tablet RxNorm: 806469 1 Tablet(s) PO daily 05/14/2015 05/06/2016 Inactive Zocor 10 mg tablet RxNorm: 965353 1 Tablet(s) PO daily 05/14/2015 05/07/2016 Inactive cxdofojg-nqnixhvfk-nzfpkieqk 3.5 mg/g-10,000 unit/g-0.5 %topical cream RxNorm: 7498374 3 gtts TOP TID 11/17/2014 11/26/2014 Inactive [SAVINGS FOR NON-COVERED DRUGS -- [id number], PCN: [id number], Group: XXXXX, ID# [id number], Questions: . THIS IS NOT INSURANCE.] simvastatin 40 mg tablet RxNorm: 457221 1/2 Tablet(s) PO QHS 10/09/2013 11/03/2013 Inactive Synthroid 25 mcg tablet RxNorm: 701219 1 Tablet(s) PO daily 08/19/2013 11/11/2014 Inactive clobetasol 0.05 % Topical Cream RxNorm: 528044 1 Application TOP TID PRN 04/05/2013 07/03/2013 Inactive nystatin 100,000 unit/gram Topical Powder RxNorm: 818782 Gram(s) TOP apply to affected area as needed 03/22/2013 10/16/2016 Inactive fluconazole 150 mg tablet RxNorm: 096810 1 Tablet(s) PO 03/19/2013 03/18/2013 Inactive take one at outbreak and then use nystatin powder (she has nystatin at home) fluconazole 150 mg tablet RxNorm: 345604 1 Tablet(s) PO 03/19/2013 03/25/2013 Inactive take one at outbreak and then use nystatin powder (she has nystatin at home) simvastatin 40 mg tablet RxNorm: 892098 1/2 Tablet(s) PO QHS 03/18/2013 07/15/2013 Inactive Synthroid 25 mcg tablet RxNorm: 383977 1 Tablet(s) PO daily 03/18/2013 08/14/2013 Inactive clobetasol 0.05 % Topical Cream RxNorm: 288364 1 Application TOP TID PRN 10/25/2012 01/22/2013 Inactive Coreg 3.125 mg tablet RxNorm: 668179 1 Tablet(s) PO BID 04/17/2012 07/03/2012 Inactive Coreg 3.125 mg tablet RxNorm: 852780 1 Tablet(s) PO BID 03/16/2012 04/14/2012 Inactive Diflucan 150 mg Tab RxNorm: 565439 1 Tablet(s) PO daily 12/26/2011 01/22/2012 Inactive simvastatin 40 mg tablet RxNorm: 069298 1/2 Tablet(s) PO QHS 04/27/2011 03/17/2013 Inactive Vitamin C Oral RxNorm: Oral No Start Date 10/16/2016 Inactive Synthroid 25 mcg tablet RxNorm: 695382 Tablet(s) PO No Start Date 03/17/2013 Inactive coenzyme Q10 75 mg Cap RxNorm: 020310 1 Capsule(s) PO daily No Start Date 10/16/2016 Inactive Coreg 3.125 mg tablet RxNorm: 049220 1 Tablet(s) PO BID No Start Date 03/15/2012 Inactive simvastatin 40 mg Tab RxNorm: 437901 1 Tablet(s) PO QHS No Start Date 04/26/2011 Inactive aspirin 81 mg capsule,delayed release RxNorm: 913852 1 Capsule(s) PO daily No Start Date 10/16/2016 Inactive metoprolol succinate ER 50 mg tablet,extended release 24 hr RxNorm: 863789 1 Tablet(s) PO daily No Start Date 10/16/2016 Inactive lisinopril 20 mg tablet RxNorm: 817606 1 Tablet(s) PO as needed No Start Date 07/20/2017 Inactive Bystolic 5 mg Tab RxNorm: 333001 1 Tablet(s) PO daily No Start Date 10/30/2011 Inactive clobetasol 0.05 % Topical Cream RxNorm: 871846 TOP No Start Date 10/24/2012 Inactive omega-3 fatty acids 1,250 mg Cap RxNorm: 1923475 1 Capsule(s) PO daily No Start Date 10/16/2016 Inactive coenzyme Q10 oral RxNorm: 32763 oral No Start Date 06/13/2018 Inactive meclizine 12.5 mg Tab RxNorm: 832629 1/2-1 Tablet(s) PO Q6 PRN No Start Date 05/18/2014 Inactive promethazine 25 mg Rectal Suppository RxNorm: 073444 1 Suppository RTL Q6 PRN No Start Date 07/03/2012 Inactive nystatin 100,000 unit/gram Topical Powder RxNorm: 120164 Gram(s) TOP apply to affected area as needed No Start Date 03/21/2013 Inactive Medication Administered Medication Codes Instructions Start Date Status Kenalog 40 mg/mL suspension for injection RxNorm: 5829471 1Milliliter 02/03/2017 No longer Active Immunizations Vaccine [...] Item Item Code Result Date Comp Metabolic Rny334 NA 140 mEq/L 12/07/2018 Comp Metabolic Dbv868 K 4.5 mEq/L 12/07/2018 Comp Metabolic Cls752 CL 105 mEq/L 12/07/2018 Comp Metabolic Kbd327 CO2 26.0 mEq/L 12/07/2018 Comp Metabolic Pug651 ANION GAP 14 12/07/2018 Comp Metabolic Fbk861 GLUCOSE 90 mg/dL 12/07/2018 Comp Metabolic Ftk724 Creat 0.9 mg/dL 12/07/2018 Comp Metabolic Xlj629 eGFR 66 ml/min/1.73m2 12/07/2018 Comp Metabolic Rwq294 BUN 22 mg/dL 12/07/2018 Comp Metabolic Zgi754 B/C Ratio 25.3 Ratio 12/07/2018 Comp Metabolic Bzb961 CALCIUM 9.7 mg/dL 12/07/2018 Comp Metabolic Afk287 ALK PHOS 67 U/L 12/07/2018 Comp Metabolic Jwa893 AST(SGOT) 22 U/L 12/07/2018 Comp Metabolic Lwl202 ALT(SGPT) 16 U/L 12/07/2018 Comp Metabolic Faj801 BILI T 0.4 mg/dL 12/07/2018 Comp Metabolic Kjd518 ALBUMIN 3.9 g/dL 12/07/2018 Comp Metabolic Bkw507 TPRO 6.2 g/dL 12/07/2018 Comp Metabolic Abb958 GLOB 2.3 g/dL 12/07/2018 Comp Metabolic Hwv250 A/G Ratio 1.7 Ratio 12/07/2018 Comp Metabolic Oim848 Osmo 282 mOsmo 12/07/2018 Cbc With Differential [...] 31.1 pg 12/06/2018 Cbc With Differential Ord2 [place]% 12.2 % 12/06/2018 Cbc With Differential Ord2 [...] 1.63 K/ul 12/06/2018 Cbc With Differential Ord2 [place] ABS# 0.6 K/ul 12/06/2018 Cbc With Differential [...] 31.5 pg 06/18/2018 Cbc With Differential Ord2 [place]% 13.3 % 06/18/2018 Cbc With Differential Ord2 [...] 1.82 K/ul 06/18/2018 Cbc With Differential Ord2 [place] ABS# 0.6 K/ul 06/18/2018 Cbc With Differential Ord2 Eos ABS# 0.2 K/ul 06/18/2018 Cbc With Differential Ord2 Baso ABS# 0.1 K/ul 06/18/2018 Lipid Ord30 CHOL 259 mg/dL 06/18/2018 Lipid Ord30 HDL 59.0 mg/dl 06/18/2018 Lipid Ord30 TRIG 115 mg/dL 06/18/2018 Lipid Ord30 LDL 177 mg/dL 06/18/2018 Lipid Ord30 C/HDL 4.4 Ratio 06/18/2018 Tsh Ord6 TSH (3rd IS) 2.11 uIU/mL 06/18/2018 Comp Metabolic Ccd101 NA 141 mEq/L 06/18/2018 Comp Metabolic Jfw384 K 4.7 mEq/L 06/18/2018 Comp Metabolic Gch966 CL 106 mEq/L 06/18/2018 Comp Metabolic Oab441 CO2 28.0 mEq/L 06/18/2018 Comp Metabolic Cha037 ANION GAP 12 06/18/2018 Comp Metabolic Roq395 GLUCOSE 85 mg/dL 06/18/2018 Comp Metabolic Lcj684 Creat 0.8 mg/dL 06/18/2018 Comp Metabolic Wwz496 eGFR 71 ml/min/1.73m2 06/18/2018 Comp Metabolic Srk420 BUN 18 mg/dL 06/18/2018 Comp Metabolic Nqk902 B/C Ratio 22.2 Ratio 06/18/2018 Comp Metabolic Tbo512 CALCIUM 9.4 mg/dL 06/18/2018 Comp Metabolic Dlq756 ALK PHOS 69 U/L 06/18/2018 Comp Metabolic Ufz609 AST(SGOT) 22 U/L 06/18/2018 Comp Metabolic Kky215 ALT(SGPT) 16 U/L 06/18/2018 Comp Metabolic Kjj520 BILI T 0.5 mg/dL 06/18/2018 Comp Metabolic Mta751 ALBUMIN 3.9 g/dL 06/18/2018 Comp Metabolic Oyi598 TPRO 6.5 g/dL 06/18/2018 Comp Metabolic Srg285 GLOB 2.6 g/dL 06/18/2018 Comp Metabolic Lsl118 A/G Ratio 1.5 Ratio 06/18/2018 Comp Metabolic Ydz789 Osmo 282 mOsmo 06/18/2018 Lipid Ord30 CHOL [...] 31.1 pg 10/28/2016 Cbc With Differential Ord2 [place]% 11.9 % 10/28/2016 Cbc With Differential Ord2 [...] 2.07 K/ul 10/28/2016 Cbc With Differential Ord2 [place] ABS# 0.6 K/ul 10/28/2016 Cbc With Differential Ord2 Eos ABS# 0.2 K/ul 10/28/2016 Cbc With Differential Ord2 Baso ABS# 0.1 K/ul 10/28/2016 Tsh Ord6 hTSH II 2.77 uIU/mL 10/28/2016 Comp Metabolic Igl437 NA 138 mEq/L 10/28/2016 Comp Metabolic Tjr214 K 4.6 mEq/L 10/28/2016 Comp Metabolic Atl292 CL 104 mEq/L 10/28/2016 Comp Metabolic Swt230 CO2 29.0 mEq/L 10/28/2016 Comp Metabolic Agj265 ANION GAP 10 10/28/2016 Comp Metabolic Hcq635 GLUCOSE 88 mg/dL 10/28/2016 Comp Metabolic Lbk356 Creat 0.9 mg/dL 10/28/2016 Comp Metabolic Mcu659 eGFR 60 ml/min/1.73m2 10/28/2016 Comp Metabolic Ibc667 BUN 27 mg/dL 10/28/2016 Comp Metabolic Mkp470 B/C Ratio 28.7 Ratio 10/28/2016 Comp Metabolic Lll432 CALCIUM 9.7 mg/dL 10/28/2016 Comp Metabolic Ulk301 ALK PHOS 58 U/L 10/28/2016 Comp Metabolic Jvy143 AST(SGOT) 20 U/L 10/28/2016 Comp Metabolic Slo782 ALT(SGPT) 14 U/L 10/28/2016 Comp Metabolic Xnn553 BILI T 0.6 mg/dL 10/28/2016 Comp Metabolic Ygd979 ALBUMIN 3.6 g/dL 10/28/2016 Comp Metabolic Rlh112 TPRO 6.3 g/dL 10/28/2016 Comp Metabolic Shs485 GLOB 2.7 g/dL 10/28/2016 Comp Metabolic Ich779 A/G Ratio 1.3 Ratio 10/28/2016 Comp Metabolic Jqa515 Osmo 280 mOsmo 10/28/2016 LIPID GRP HDL TEST 60 MG/DL 05/13/2015 LIPID GRP TRIG 100 MG/DL 05/13/2015 LIPID GRP TEST LDL 190 MG/DL 05/13/2015 LIPID GRP CHOL 270 MG/DL 05/13/2015 LIPID GRP RCHOL/HDL 4.50 RATIO 05/13/2015 LIPID GRP NON-HDL CH 210 MG/DL 05/13/2015 LIVER PNL 3077967 AST 29 U/L 05/13/2015 LIVER PNL 8240361 ALK PHOS 70 U/L 05/13/2015 LIVER PNL 0715903 BILI TOT 0.5 MG/DL 05/13/2015 LIVER PNL 8838712 ALT 27 IU/L 05/13/2015 LIVER PNL 4869422 BILI DIR 0.1 MG/DL 05/13/2015 LIVER PNL 8802732 ALBUMIN 3.8 GM/DL 05/13/2015 LIVER PNL 3708679 PROT TOT 7.3 GM/DL 05/13/2015 TSH 0140041 TSH 3.354 uIU/ML 07/24/2013 LIPID GRP HDL TEST 46 MG/DL 07/24/2013 LIPID GRP TRIG 86 MG/DL 07/24/2013 LIPID GRP TEST LDL 113 MG/DL 07/24/2013 LIPID GRP CHOL 176 MG/DL 07/24/2013 LIPID GRP RCHOL/HDL 3.83 RATIO 07/24/2013 CHEM 14 2184320 AST 25 U/L 07/24/2013 CHEM 14 9842924 ALT 20 IU/L 07/24/2013 CHEM 14 0349725 BUN 18 MG/DL 07/24/2013 CHEM 14 7278947 ALBUMIN 4.0 GM/DL 07/24/2013 CHEM 14 2677585 CHLORIDE 105 MMOL/L 07/24/2013 CHEM 14 4353315 BILI TOT 0.4 MG/DL 07/24/2013 CHEM 14 6974312 ALK PHOS 57 U/L 07/24/2013 CHEM 14 5544678 SODIUM 139 MMOL/L 07/24/2013 CHEM 14 5727833 CREATININE 0.83 MG/DL 07/24/2013 CHEM 14 0559781 CALCIUM 10.0 MG/DL 07/24/2013 CHEM 14 6789892 POTASSIUM 4.5 MMOL/L 07/24/2013 CHEM 14 6690357 PROT TOT 6.3 GM/DL 07/24/2013 CHEM 14 6372594 GLUCOSE 91 MG/DL 07/24/2013 CHEM 14 0045311 BICARB 28 MMOL/L 07/24/2013 CHEM 14 7976705 ANION GAP 6 MEQ/L 07/24/2013 FREE T4 1499433 FREE T4 1.17 NG/DL 07/24/2013 GFR CALC 2601524 GFR AA >60 ML/MIN 07/24/2013 GFR CALC 9353542 GFR NON-AA >60 ML/MIN 07/24/2013 CBC 0814384 WBC 5.7 10e9/L 07/24/2013 CBC 6086363 RBC 4.39 10e12/L 07/24/2013 CBC 3365896 HGB 13.6 g/dL 07/24/2013 CBC 9304581 HCT DET 41.7 % 07/24/2013 CBC 6730848 MCV 95.0 fL 07/24/2013 CBC 5889767 MCH 31.0 pg 07/24/2013 CBC 9281221 MCHC 32.6 g/dL 07/24/2013 CBC 9698566 PLT 341 10e9/L 07/24/2013 CBC 3555494 MPV 9.7 fL 07/24/2013 CBC 3019797 [place] % 37.9 % 07/24/2013 CBC 1718263 LY % 38.1 % 07/24/2013 CBC 5999205 MON % 12.0 % 07/24/2013 CBC 0509002 EOS % 9.9 % 07/24/2013 CBC 1029343 BASO % 2.1 % 07/24/2013 CBC 2980117 RDW 14.1 % 07/24/2013 CBC 8612391 ABS RORO 2.16 10e9/L 07/24/2013 CBC 1313078 ABS LYMPH 2.17 10e9/L 07/24/2013 CBC 8849046 ABS MONO 0.68 10e9/L 07/24/2013 CBC 9751303 ABS EOS 0.56 10e9/L 07/24/2013 CBC 2502761 ABS BASO 0.12 10e9/L 07/24/2013 CBC 5223195 RDW-SD 47.2 fL 07/24/2013 FREE T4 6302704 FREE T4 0.97 NG/DL 03/14/2013 TSH 9946438 TSH 6.175 uIU/ML 03/13/2013 LIPID GRP HDL TEST 51 MG/DL 03/13/2013 LIPID GRP TRIG 182 MG/DL 03/13/2013 LIPID GRP TEST LDL 191 MG/DL 03/13/2013 LIPID GRP CHOL 278 MG/DL 03/13/2013 LIPID GRP RCHOL/HDL 5.45 RATIO 03/13/2013 CHEM 14 3634833 AST 23 U/L 03/13/2013 CHEM 14 4502778 ALT 18 IU/L 03/13/2013 CHEM 14 7013505 BUN 21 MG/DL 03/13/2013 CHEM 14 1322457 ALBUMIN 4.1 GM/DL 03/13/2013 CHEM 14 4049529 CHLORIDE 107 MMOL/L 03/13/2013 CHEM 14 6015154 BILI TOT 0.4 MG/DL 03/13/2013 CHEM 14 1410309 ALK PHOS 57 U/L 03/13/2013 CHEM 14 5410968 SODIUM 140 MMOL/L 03/13/2013 CHEM 14 9370298 CREATININE 0.94 MG/DL 03/13/2013 CHEM 14 6183478 CALCIUM 9.8 MG/DL 03/13/2013 CHEM 14 1434757 POTASSIUM 4.4 MMOL/L 03/13/2013 CHEM 14 5446069 PROT TOT 6.1 GM/DL 03/13/2013 CHEM 14 4384483 GLUCOSE 90 MG/DL 03/13/2013 CHEM 14 1588499 BICARB 27 MMOL/L 03/13/2013 CHEM 14 4668761 ANION GAP 6 MEQ/L 03/13/2013 GFR CALC 3563626 GFR AA >60 ML/MIN 03/13/2013 GFR CALC 3414359 GFR NON-AA 57.0L ML/MIN 03/13/2013 CBC 9208542 WBC 4.9 10e9/L 07/02/2012 CBC 5137338 RBC 4.20 10e12/L 07/02/2012 CBC 8507858 HGB 13.3 g/dL 07/02/2012 CBC 9205955 HCT DET 40.2 % 07/02/2012 CBC 4614902 MCV 95.7 fL 07/02/2012 CBC 7842133 MCH 31.7 pg 07/02/2012 CBC 6011335 MCHC 33.1 g/dL 07/02/2012 CBC 6687222 PLT 317 10e9/L 07/02/2012 CBC 6674149 MPV 10.3 fL 07/02/2012 CBC 5081038 [place] % 40.1 % 07/02/2012 CBC 7580796 LY % 42.8 % 07/02/2012 CBC 4194180 MON % 12.0 % 07/02/2012 CBC 2712331 EOS % 4.3 % 07/02/2012 CBC 5911883 BASO % 0.8 % 07/02/2012 CBC 6531618 RDW 13.9 % 07/02/2012 CBC 6073725 ABS [place] 1.96 10e9/L 07/02/2012 CBC 8486640 ABS LYMPH 2.10 10e9/L 07/02/2012 CBC 6766698 ABS MONO 0.59 10e9/L 07/02/2012 CBC 4665916 ABS EOS 0.21 10e9/L 07/02/2012 CBC 6913955 ABS BASO 0.04 10e9/L 07/02/2012 CBC 8342013 RDW-SD 47.3 fL 07/02/2012 CHEM 14 5560600 AST 23 U/L 07/02/2012 CHEM 14 0816960 ALT 20 IU/L 07/02/2012 CHEM 14 8672938 BUN 14 MG/DL 07/02/2012 CHEM 14 0185663 ALBUMIN 3.8 GM/DL 07/02/2012 CHEM 14 2133113 CHLORIDE 108 MMOL/L 07/02/2012 CHEM 14 3553988 BILI TOT 0.4 MG/DL 07/02/2012 CHEM 14 2671867 ALK PHOS 66 U/L 07/02/2012 CHEM 14 0962785 SODIUM 143 MMOL/L 07/02/2012 CHEM 14 3391482 CREATININE 0.88 MG/DL 07/02/2012 CHEM 14 2197487 CALCIUM 9.7 MG/DL 07/02/2012 CHEM 14 1681741 POTASSIUM 4.6 MMOL/L 07/02/2012 CHEM 14 2141902 PROT TOT 6.4 GM/DL 07/02/2012 CHEM 14 7400477 GLUCOSE 87 MG/DL 07/02/2012 CHEM 14 3557161 BICARB 28 MMOL/L 07/02/2012 CHEM 14 6421053 ANION GAP 7 MEQ/L 07/02/2012 GFR CALC 9633503 GFR AA >60 ML/MIN 07/02/2012 GFR CALC 7940863 GFR NON-AA >60 ML/MIN 07/02/2012 FREE T4 1546810 FREE T4 1.10 NG/DL 07/02/2012 TSH 3620541 TSH 2.909 uIU/ML 07/02/2012 LIPID GRP HDL TEST 54 MG/DL 07/02/2012 LIPID GRP TRIG 102 MG/DL 07/02/2012 LIPID GRP TEST LDL 109 MG/DL 07/02/2012 LIPID GRP CHOL 183 MG/DL 07/02/2012 LIPID GRP RCHOL/HDL 3.39 RATIO 07/02/2012 URINALYSIS NONAUTO W/O SCOPE 61420 Specific [place] 1.005 DateTime(Free Text in Aprima) URINALYSIS NONAUTO W/O SCOPE 92879 PH 5.0 DateTime(Free Text in Aprima) URINALYSIS NONAUTO W/O SCOPE 24910 GLUCOSE NEG DateTime(Free Text in Aprima) URINALYSIS NONAUTO W/O SCOPE 15005 Protein NEG DateTime(Free Text in Aprima) URINALYSIS NONAUTO W/O SCOPE 73415 Blood NEG DateTime(Free Text in Aprima) URINALYSIS NONAUTO W/O SCOPE 32820 Bilirubin NEG DateTime(Free Text in Aprima) URINALYSIS NONAUTO W/O SCOPE 06227 Ketones NEG DateTime(Free Text in Aprima) URINALYSIS NONAUTO W/O SCOPE 23104 Urobilinogen NEG DateTime(Free Text in Aprima) URINALYSIS NONAUTO W/O SCOPE 64087 Nitrite NEG DateTime(Free Text in Aprima) URINALYSIS NONAUTO W/O SCOPE 89068 Leukocytes NEG DateTime(Free Text in Apr) Review [...] INJ NOS CPT-4: J3301 02/03/2017 PAP CPT-4: 9264897 10/17/2016 ROUTINE VENIPUNCTURE CPT- 4: 56311 07/24/2013 ROUTINE VENIPUNCTURE CPT- 4: 81758 03/13/2013 PRESCRIP TRANSMIT VIA ERX SY CPT-4: G8553 10/25/2012 ROUTINE VENIPUNCTURE CPT- 4: 55608 07/02/2012 PRESCRIP TRANSMIT VIA ERX SY CPT-4: G8553 12/26/2011 ROUTINE VENIPUNCTURE CPT- 4: 22936 10/20/2011 URINALYSIS NONAUTO W/O SCOPE CPT-4: 92133 09/15/2011 PRESCRIP TRANSMIT VIA ERX SY CPT-4: G8553 09/15/2011 ROUTINE VENIPUNCTURE CPT- 4: 33560 06/07/2011 PRESCRIP TRANSMIT VIA ERX SY CPT-4: G8553 04/27/2011 Vital Signs Date Vital 12/06/2018 Blood Pressure 1: 180/86 Code: 8480-6 Heart Rate 1: 94 bpm Height: 5'4" SpO2: 96% 06/14/2018 Blood Pressure 1: 142/76 Code: 8480-6 BMI: 33.0 Code: 42233-2 Heart Rate 1: 72 bpm Height: 5'4" SpO2: 97% Waist Measure (cm): 107 cm Weight: 195 lbs 09/19/2017 Blood Pressure 1: 148/70 Code: 8480-6 BMI: 33.3 Code: 91915-1 Heart Rate 1: 82 bpm Height: 5'4" SpO2: 98% Weight: 197 lbs 07/21/2017 Blood Pressure 1: 160/62 Code: 8480-6 Blood Pressure 1: 144/68 Code: 8480-6 BMI: 33.3 Code: 30852-3 Heart Rate 1: 75 bpm Height: 5'4" SpO2: 98% Weight: 197 lbs 02/06/2017 Blood Pressure 1: 142/84 Code: 8480-6 BMI: 32.1 Code: 44267-6 Heart Rate 1: 76 bpm Height: 5'4" SpO2: 96% Weight: 190 lbs 02/03/2017 Blood Pressure 1: 142/84 Code: 8480-6 BMI: 32.2 Code: 42997-9 Heart Rate 1: 76 bpm Height: 5'4" SpO2: 96% Weight: 190 lbs 8 oz 10/17/2016 Blood Pressure 1: 136/90 Code: 8480-6 BMI: 31.6 Code: 36636-7 Heart Rate 1: 76 bpm Height: 5'4" SpO2: 98% Weight: 187 lbs 07/14/2015 Blood Pressure 1: 150/80 Code: 8480-6 BMI: 31.1 Code: 08101-4 Heart Rate 1: 74 bpm Height: 5'4" SpO2: 95% Weight: 184 lbs 11/17/2014 Blood Pressure 1: 142/88 Code: 8480-6 BMI: 32.3 Code: 27130-8 Heart Rate 1: 72 bpm Height: 5'4" Weight: 191 lbs 05/19/2014 Blood Pressure 1: 136/74 Code: 8480-6 BMI: 32.8 Code: 70967-7 Heart Rate 1: 72 bpm Height: 5'4" Weight: 194 lbs 11/04/2013 Blood Pressure 1: 154/76 Code: 8480-6 BMI: 31.4 Code: 48634-3 Heart Rate 1: 76 bpm Height: 5'4" Weight: 186 lbs 08/05/2013 Blood Pressure 1: 150/78 Code: 8480-6 BMI: 30.9 Code: 87774-1 Heart Rate 1: 60 bpm Height: 5'4" Weight: 183 lbs 05/22/2013 Blood Pressure 1: 156/76 Code: 8480-6 BMI: 31.8 Code: 98808-7 Heart Rate 1: 72 bpm Height: 5'4" Weight: 188 lbs 02/20/2013 Blood Pressure 1: 138/78 Code: 8480-6 BMI: 32.1 Code: 83605-8 Heart Rate 1: 72 bpm Height: 5'4" Weight: 190 lbs 10/25/2012 Blood Pressure 1: 138/82 Code: 8480-6 BMI: 31.8 Code: 06788-1 Heart Rate 1: 72 bpm Height: 5'4" Weight: 188 lbs 07/04/2012 Blood Pressure 1: 136/70 Code: 8480-6 Heart Rate 1: 72 bpm Weight: 187 lbs 12/26/2011 Blood Pressure 1: 152/82 Code: 8480-6 BMI: 30.4 Code: 15865-8 Heart Rate 1: 78 bpm Height: 5'4" Respiratory Rate: 16 bpm Weight: 180 lbs 10/26/2011 Blood Pressure 1: 140/64 Code: 8480-6 Heart Rate 1: 64 bpm Weight: 181 lbs 8 oz 09/15/2011 Blood Pressure 1: 152/82 Code: 8480-6 BMI: 30.8 Code: 34241-2 Heart Rate 1: 60 bpm Height: 5'4" Temperature: 36.8 (C) / 98.3 (F) Weight: 182 lbs 06/07/2011 Blood Pressure 1: 154/80 Code: 8480-6 05/10/2011 Blood Pressure 1: 122/66 Code: 8480-6 BMI: 30.7 Code: 64112-2 Heart Rate 1: 66 bpm Height: 5'4" Respiratory Rate: 12 bpm Weight: 181 lbs 8 oz 04/27/2011 Blood Pressure 1: 136/70 Code: 8480-6 BMI: 30.6 Code: 11338-6 Heart Rate 1: 72 bpm Height: 5'4" [...] data Encounters Encounter Performer Location Codes Date 02304 EST. PATIENT, LEVEL III Diagnosis: Edema, unspecified[ICD10: R60.9] Diagnosis: Other specified soft tissue disorders[ICD10: M79.89] [facility] CPT-4: 87070 12/06/2018 [id number] EST. PATIENT, LEVEL IV Diagnosis: Low back pain[ICD10: M54.5] Katie Abdalla MD, [facility] CPT-4: 86841 09/19/2017 ([id number]) 06464 EST. PATIENT, LEVEL III Diagnosis: Essential (primary) hypertension[ICD10: I10] Diagnosis: Epigastric pain[ICD10: R10.13] Tori Abdalla MD, [facility] CPT-4: 27369 07/21/2017 ([id number]) 96818 EST. PATIENT, LEVEL III Diagnosis: Low back pain[ICD10: M54.5] Tori Abdalla MD, [facility] CPT-4: 47584 02/03/2017 ([id number]) 12385 EST. PATIENT, LEVEL IV Diagnosis: Encounter for gynecological examination (general) (routine) without abnormal findings[ICD10: Z01.419] Tori Abdalla MD, [facility] CPT-4: 25444 10/17/2016 [id number] EST. PATIENT, LEVEL III Diagnosis: Low back pain[ICD10: M54.5] Katie Abdalla MD, [facility] CPT-4: 28650 07/14/2015 ([id number]) 27512 EST. PATIENT, LEVEL III Diagnosis: ESSENTIAL HYPERTENSION[ICD9: 401.9] Marcela Abdalla MD, [facility] CPT- 4: 48169 11/17/2014 ([id number]) 73088 EST. PATIENT, LEVEL III Diagnosis: ESSENTIAL HYPERTENSION[ICD9: 401.9] Diagnosis: HYPERLIPIDEMIA[ICD9: 272.4] Diagnosis: HYPOTHYROIDISM[ICD9: 244.9] Marcela Abdalla MD, [facility] CPT-4: 15110 05/19/2014 ([id number]) 17918 EST. PATIENT, LEVEL IV Diagnosis: HYPOTHYROIDISM[ICD9: 244.9] Diagnosis: ESSENTIAL HYPERTENSION[SNOMED: 00852201] Marcela Abdalla MD, [facility] CPT-4: 27741 11/04/2013 ([id number]) 87415 EST. PATIENT, LEVEL III Diagnosis: ESSENTIAL HYPERTENSION[SNOMED: 69738167] Marcela Abdalla MD, [facility] CPT-4: 79900 08/05/2013 ([id number]) 30094 EST. PATIENT, LEVEL III Diagnosis: ESSENTIAL HYPERTENSION[SNOMED: 13650912] Marcela Abdalla MD [facility] CPT-4: 64743 05/22/2013 ([id number]) 37974 EST. PATIENT, LEVEL III Diagnosis: ESSENTIAL HYPERTENSION[SNOMED: 67527213] Marcela Abdalla MD [facility] CPT-4: 37518 02/20/2013 ([id number]) 56815 EST. PATIENT, LEVEL IV Diagnosis: ESSENTIAL HYPERTENSION[SNOMED: 34782484] Diagnosis: HYPERLIPIDEMIA[ICD9: 272.4] Diagnosis: NONSPECIF SKIN ERUPT NEC[ICD9: 782.1] Marcela Abdalla MD [facility] CPT-4: 63127 10/25/2012 ([id number]) 59769 EST. PATIENT, LEVEL IV Diagnosis: ESSENTIAL HYPERTENSION[SNOMED: 93454732] Diagnosis: HYPERLIPIDEMIA[ICD9: 272.4] Marcela Abdalla MD [facility] CPT-4: 33079 07/04/2012 ([id number]) 83293 EST. PATIENT, LEVEL IV Diagnosis: ESSENTIAL HYPERTENSION[SNOMED: 13862781] Diagnosis: HYPERLIPIDEMIA[ICD9: 272.4] Marcela Abdalla MD [facility] CPT-4: 27241 12/26/2011 ([id number]) 04982 EST. PATIENT, LEVEL IV Diagnosis: ESSENTIAL HYPERTENSION[SNOMED: 01140474] Diagnosis: HYPERLIPIDEMIA[ICD9: 272.4] Marcela Abdalla MD [facility] CPT-4: 86327 10/26/2011 ([id number]) 41159 EST. PATIENT, LEVEL IV Diagnosis: BPPV (benign paroxysmal positional vertigo)[ICD9: 386.11] Diagnosis: ESSENTIAL HYPERTENSION[SNOMED: 13156227] Tori Abdalla MD [facility] CPT-4: 43029 09/15/2011 97539 EST. PATIENT, LEVEL III Diagnosis: Lesion of oral mucosa[ICD9: 528.9] Diagnosis: Rash and nonspecific skin eruption[ICD9: 782.1] Marcela Abdalla MD [facility] CPT-4: 68437 05/10/2011 01693 EST. PATIENT, LEVEL IV Diagnosis: ESSENTIAL HYPERTENSION[SNOMED: 37587170] Diagnosis: Mouth sores[ICD9: 528.9] [facility] CPT-4: 38787 04/27/2011 Plan of Care Planned Activity Notes Codes Status Date Visit Plan: Neck, paracervical muscle tenderness and edema - will consider ordering a CT - The pt is to use prn antiinflammatories to manage acute pain. The patient is to call the office if the pain is worsening or does not improve. 12/06/2018 [phone] ([facility] Complex 12/06/2018 Patient Education: [...] 06/14/2018 Care Plan: Referral Order SNOMED-CT : 679091579 Pending 06/14/2018 Appointment: Katie Ellis WPtel: [phone] [facility] [place] [address] - Annual Wellness Visit 02/12/2018 Visit Plan: [...] improve. 09/19/2017 [facility]ment: [phone] ([facility] Complex 09/19/2017 Patient Education: [...] is to call for acute concerns. Epigastric wqbh-gweibcgn-dhzcz prilosec daily-monitor symptoms and call if abdominal pain does not improve or if any worse 07/21/2017 App[facility]ment: [phone] [phone] [place] (30 min) Complex 07/21/2017 Patient [...] surrogate. 02/06/2017 [facility]ment: [phone] [facility] - Annual Wellness Visit 02/06/2017 Patient Education: [...] office. 02/03/2017 App[facility]ment[phone] [phone] (30 min) Complex 02/03/2017 Patient Education: [...] mammogram 10/17/2016 [phone] [facility] 10/17/2016 Patient Education: Patient [...] home. 11/17/2014 [phone] [facility] 11/17/2014 Patient Education: Patient [...] home. 05/19/2014 [facility]ment[phone] [phone] [facility] 05/19/2014 Patient Education: Patient [...] control. 11/04/2013 Appointment: Marcela Abdalla WPtel: [phone] [id number] Follow up 11/04/2013 Patient Education: Patient Medication [...] home. 08/05/2013 Appointment: Marcela Abdalla WPtel: [phone] [id number] Follow up 08/05/2013 Patient Education: Patient Medication [...] home. 05/22/2013 Appointment: Marcela Abdalla WPtel: [phone] [id number] Follow up 05/22/2013 Patient Education: Patient Medication [...] home. 02/20/2013 Appointment: Marcela Abdalla WPtel: [phone] [id number] Follow up 02/20/2013 Patient Education: Patient Medication [...] Marcela Abdalla WPtel: [id number] Follow up 10/25/2012 Patient Education: Patient Medication [...] medications. 07/04/2012 [facility]ment: [phone] [facility] Patient Preventative visit 07/04/2012 Patient Education: Patient Medication Summary Completed 07/04/2012 Patient Education: 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 Completed 07/04/2012 Appointment: [phone] [facility] 07/02/2012 Patient Education: Patient Medication [...] to medications. 12/26/2011 Appointment: Marcela Abdalla WPtel: [address] [place], [place] [id number] Other 12/26/2011 Patient Education: Patient Medication Summary [...] medications. 10/26/2011 App[facility]ment: [phone] [place] Other 10/26/2011 Patient Education: Patient Medication Summary Completed 10/26/2011 Patient Education: High Blood Pressure: Essential 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 Completed 10/26/2011 Appointment: [phone] [place] Lab Draw 10/20/2011 Patient [...] changes. 09/15/2011 Appointment: Tori Duvall WPtel: [phone] [phone] [place] Lab Draw 09/15/2011 Patient Education: Patient Medication Summary Completed 09/15/2011 Patient Education: .Amazing charts Paroxysmal positional vertigo Completed 09/15/2011 Patient Education: High Blood Pressure: Essential 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 Completed 09/15/2011 Appointment: Marcel[facility]el[id number] [place] [facility] 06/07/2011 Patient Education: Patient [...] Marcela Abdalla WPtel: [facility] Other 05/10/2011 Patient Education: Patient Medication Summary Completed 05/10/2011 Appointment: Marcela Abdalla WPtel: [address] [place], [place] [id number] Follow up 05/04/2011 Visit Plan: HTN- improved from high blood pressure earlier this week No change in current medication. Try to avoid high salt containing foods. 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 Neck, paracervical muscle tenderness and edema [...] in blood pressure readings at home. . Sacroiliitis - back exercises discussed with [...] pain is worsening or does not improve. BPPV exercises provided We will call you [...] pain, shortness of breath, headache, vision changes. Declined Procedure: (Q2036) FLULAVAL VACC, 3 YRS [...] her DOPA paperwork for health care surrogate. LEI OTC DAILY . 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 - uncontrolled - [...] is to call for acute concerns. 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
--- OUTSIDE RECORDS SUMMARY | 2019-01-10 12:42 | XMS REPORT | CCD ---
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 Name Role Phone PP Unavailable CCM Unavailable Summary Purpose Interface Exchange Insurance Providers Payer name Policy type / Coverage type Covered libertarian ID Effective Begin Date Effective End Date WPS Medicare Part B Medicare Part B [id number] Unknown Unknown [facility] Medicare Part B [id number] Unknown Unknown Family history Daughter Diagnosis Age [...] Unknown 04/27/2011 Number of children Unknown 4 [id number] 04/27/2011 Employment Unknown Retired 04/27/[address]: 856352738 Never smoker 04/27/[address]: 750727572 Never drinks alcohol 04/27/2011 Has the patient [...] Codes Condition Status Onset Date Resolved Date Bilateral primary osteoarthritis of knee ICD-9: 715.96 [...] Problems Condition Codes Effective Dates Condition Status Bilateral primary osteoarthritis of knee ICD-9: 715.96 [...] Start Date Stop Date Status Fill Instructions pravastatin 20 mg tablet RxNorm: 831596 1 Tablet(s) PO daily 10/03/2018 01/30/2019 Active pravastatin 20 mg tablet RxNorm: 298295 1 Tablet(s) PO daily 10/03/2018 10/02/2018 Inactive lisinopril 10 mg tablet RxNorm: 708966 TAKE ONE TABLET BY MOUTH ONCE DAILY IN THE EVENING 08/08/2018 No Stop Date Active prednisone 20 mg tablet RxNorm: 481264 2 Tablet(s) PO daily 09/19/2017 09/23/2017 Inactive lisinopril 10 mg tablet RxNorm: 051732 1 Tablet(s) PO QPM 07/21/2017 01/16/2018 Inactive Kenalog 40 mg/mL suspension for injection RxNorm: 7990027 1 Milliliter(s) Inj 02/03/2017 02/03/2017 Inactive Zocor 10 mg tablet RxNorm: 970164 1 Tablet(s) PO daily 05/14/2015 05/13/2015 Inactive Zocor 10 mg tablet RxNorm: 805798 1 Tablet(s) PO daily 05/14/2015 05/06/2016 Inactive Zocor 10 mg tablet RxNorm: 217243 1 Tablet(s) PO daily 05/14/2015 05/07/2016 Inactive vwnpnhvs-zspbjuvaa-iflnrosjw 3.5 mg/g-10,000 unit/g-0.5 %topical cream RxNorm: 1488743 3 gtts TOP TID 11/17/2014 11/26/2014 Inactive [SAVINGS FOR NON-COVERED DRUGS -- BIN:[id number], PCN: [id number], Group: [id number], ID# [id number], Questions: . THIS IS NOT INSURANCE.] simvastatin 40 mg tablet RxNorm: 255344 1/2 Tablet(s) PO QHS 10/09/2013 11/03/2013 Inactive Synthroid 25 mcg tablet RxNorm: 386376 1 Tablet(s) PO daily 08/19/2013 11/11/2014 Inactive clobetasol 0.05 % Topical Cream RxNorm: 335858 1 Application TOP TID PRN 04/05/2013 07/03/2013 Inactive nystatin 100,000 unit/gram Topical Powder RxNorm: 285239 Gram(s) TOP apply to affected area as needed 03/22/2013 10/16/2016 Inactive fluconazole 150 mg tablet RxNorm: 336959 1 Tablet(s) PO 03/19/2013 03/18/2013 Inactive take one at outbreak and then use nystatin powder (she has nystatin at home) fluconazole 150 mg tablet RxNorm: 165022 1 Tablet(s) PO 03/19/2013 03/25/2013 Inactive take one at outbreak and then use nystatin powder (she has nystatin at home) simvastatin 40 mg tablet RxNorm: 648500 1/2 Tablet(s) PO QHS 03/18/2013 07/15/2013 Inactive Synthroid 25 mcg tablet RxNorm: 680309 1 Tablet(s) PO daily 03/18/2013 08/14/2013 Inactive clobetasol 0.05 % Topical Cream RxNorm: 208414 1 Application TOP TID PRN 10/25/2012 01/22/2013 Inactive Coreg 3.125 mg tablet RxNorm: 407021 1 Tablet(s) PO BID 04/17/2012 07/03/2012 Inactive Coreg 3.125 mg tablet RxNorm: 637139 1 Tablet(s) PO BID 03/16/2012 04/14/2012 Inactive Diflucan 150 mg Tab RxNorm: 574260 1 Tablet(s) PO daily 12/26/2011 01/22/2012 Inactive simvastatin 40 mg tablet RxNorm: 121336 1/2 Tablet(s) PO QHS 04/27/2011 03/17/2013 Inactive Vitamin C Oral RxNorm: Oral No Start Date 10/16/2016 Inactive Synthroid 25 mcg tablet RxNorm: 845371 Tablet(s) PO No Start Date 03/17/2013 Inactive coenzyme Q10 75 mg Cap RxNorm: 487825 1 Capsule(s) PO daily No Start Date 10/16/2016 Inactive Coreg 3.125 mg tablet RxNorm: 974718 1 Tablet(s) PO BID No Start Date 03/15/2012 Inactive simvastatin 40 mg Tab RxNorm: 844709 1 Tablet(s) PO QHS No Start Date 04/26/2011 Inactive aspirin 81 mg capsule,delayed release RxNorm: 321554 1 Capsule(s) PO daily No Start Date 10/16/2016 Inactive metoprolol succinate ER 50 mg tablet,extended release 24 hr RxNorm: 935035 1 Tablet(s) PO daily No Start Date 10/16/2016 Inactive lisinopril 20 mg tablet RxNorm: 236048 1 Tablet(s) PO as needed No Start Date 07/20/2017 Inactive Bystolic 5 mg Tab RxNorm: 575218 1 Tablet(s) PO daily No Start Date 10/30/2011 Inactive clobetasol 0.05 % Topical Cream RxNorm: 031175 TOP No Start Date 10/24/2012 Inactive omega-3 fatty acids 1,250 mg Cap RxNorm: 8299625 1 Capsule(s) PO daily No Start Date 10/16/2016 Inactive coenzyme Q10 oral RxNorm: 77951 oral No Start Date 06/13/2018 Inactive meclizine 12.5 mg Tab RxNorm: 360735 1/2-1 Tablet(s) PO Q6 PRN No Start Date 05/18/2014 Inactive promethazine 25 mg Rectal Suppository RxNorm: 726014 1 Suppository RTL Q6 PRN No Start Date 07/03/2012 Inactive nystatin 100,000 unit/gram Topical Powder RxNorm: 721850 Gram(s) TOP apply to affected area as needed No Start Date 03/21/2013 Inactive Medication Administered Medication Codes Instructions Start Date Status Kenalog 40 mg/mL suspension for injection RxNorm: 7985575 1Milliliter 02/03/2017 No longer Active Immunizations Vaccine Codes Date Status Influenza CVX: 141 05/22/2013 completed Assessments Condition Codes Effective Dates Bilateral primary osteoarthritis of knee ICD-10: M17.0 ICD-9: 715.96 06/14/2018 Encounter for general adult medical examination with abnormal findings ICD-10: Z00.01 ICD-9: V70.0 06/14/2018 Low back pain ICD-10: M54.5 ICD-9: 724.2 09/19/2017 Essential (primary) hypertension ICD-10: I10 ICD-9: 401.9 07/21/2017 Epigastric pain ICD-10: R10.13 ICD-9: 789.06 07/21/2017 Encounter for gynecological examination (general) (routine) without abnormal findings ICD-10: Z01.419 ICD-9: V72.31 10/17/2016 ESSENTIAL HYPERTENSION ICD-9: 401.9 11/17/2014 HYPERLIPIDEMIA ICD-9: 272.4 05/19/2014 HYPOTHYROIDISM ICD-9: 244.9 05/19/2014 ENCNTR LONG-RX USE NEC ICD-9: V58.69 07/24/2013 NONSPECIF SKIN ERUPT NEC ICD-9: 782.1 10/25/2012 Anticoagulant long-term use ICD-9: V58.61 10/20/2011 Nausea ICD-9: 787.02 09/15/2011 BPPV (benign paroxysmal positional vertigo) ICD-9: 386.11 09/15/2011 Lesion of oral mucosa ICD-9: 528.9 05/10/2011 Reason For Visit Reason For Visit Effective Dates Notes Annual Medicare Wellness Exam 06/14/2018 low back [...] Item Code Result Date Lipid Ord30 CHOL 285 mg/dL 10/02/2018 Lipid Ord30 HDL 60.0 mg/dl 10/02/2018 Lipid Ord30 TRIG 145 mg/dL 10/02/2018 Lipid Ord30 LDL 196 mg/dL 10/02/2018 Lipid Ord30 C/HDL 4.8 Ratio 10/02/2018 Cbc With Differential Ord2 WBC 4.60 K/ul 06/18/2018 Cbc With Differential Ord2 RBC 4.26 M/ul 06/18/2018 Cbc With Differential Ord2 HGB 13.4 g/dl 06/18/2018 Cbc With Differential Ord2 Neut% 41.7 % 06/18/2018 Cbc With Differential Ord2 HCT 41.0 % 06/18/2018 Cbc With Differential Ord2 MCV 96.2 fl 06/18/2018 Cbc With Differential Ord2 Lymph% 39.6 % 06/18/2018 Cbc With Differential Ord2 MCH 31.5 pg 06/18/2018 Cbc With Differential Ord2 [place]% 13.3 % 06/18/2018 Cbc With Differential Ord2 MCHC 32.7 pg 06/18/2018 Cbc With Differential Ord2 Eos% 4.1 % 06/18/2018 Cbc With Differential Ord2 Baso% 1.3 % 06/18/2018 Cbc With Differential Ord2 PLT 310 K/ul 06/18/2018 Cbc With Differential Ord2 Neut ABS# 1.92 K/ul 06/18/2018 Cbc With Differential Ord2 RDW 15.3 % 06/18/2018 Cbc With Differential Ord2 Lymph ABS# 1.82 K/ul 06/18/2018 Cbc With Differential Ord2 [place] ABS# 0.6 K/ul 06/18/2018 Cbc With Differential Ord2 Eos ABS# 0.2 K/ul 06/18/2018 Cbc With Differential Ord2 Baso ABS# 0.1 K/ul 06/18/2018 Lipid Ord30 CHOL 259 mg/dL 06/18/2018 Lipid Ord30 HDL 59.0 mg/dl 06/18/2018 Lipid Ord30 TRIG 115 mg/dL 06/18/2018 Lipid Ord30 LDL 177 mg/dL 06/18/2018 Lipid Ord30 C/HDL 4.4 Ratio 06/18/2018 Tsh Ord6 TSH (3rd IS) 2.11 uIU/mL 06/18/2018 Comp Metabolic Ggx647 NA 141 mEq/L 06/18/2018 Comp Metabolic Fbg977 K 4.7 mEq/L 06/18/2018 Comp Metabolic Ynt416 CL 106 mEq/L 06/18/2018 Comp Metabolic Nxy514 CO2 28.0 mEq/L 06/18/2018 Comp Metabolic Xnm522 ANION GAP 12 06/18/2018 Comp Metabolic Qho500 GLUCOSE 85 mg/dL 06/18/2018 Comp Metabolic Idr239 Creat 0.8 mg/dL 06/18/2018 Comp Metabolic Doi426 eGFR 71 ml/min/1.73m2 06/18/2018 Comp Metabolic Kap271 BUN 18 mg/dL 06/18/2018 Comp Metabolic Brb809 B/C Ratio 22.2 Ratio 06/18/2018 Comp Metabolic Fpr613 CALCIUM 9.4 mg/dL 06/18/2018 Comp Metabolic Dzr218 ALK PHOS 69 U/L 06/18/2018 Comp Metabolic Gze766 AST(SGOT) 22 U/L 06/18/2018 Comp Metabolic Utx141 ALT(SGPT) 16 U/L 06/18/2018 Comp Metabolic Bas924 BILI T 0.5 mg/dL 06/18/2018 Comp Metabolic Yyk416 ALBUMIN 3.9 g/dL 06/18/2018 Comp Metabolic Efm443 TPRO 6.5 g/dL 06/18/2018 Comp Metabolic Mpz491 GLOB 2.6 g/dL 06/18/2018 Comp Metabolic Qon337 A/G Ratio 1.5 Ratio 06/18/2018 Comp Metabolic Qdi611 Osmo 282 mOsmo 06/18/2018 Lipid Ord30 CHOL [...] 40.1 % 10/28/2016 Cbc With Differential Ord2 Lymph% 41.8 % 10/28/2016 Cbc With Differential Ord2 MCV 95.2 fl 10/28/2016 Cbc With Differential Ord2 MCH 31.1 pg 10/28/2016 Cbc With Differential Ord2 [place]% 11.9 % 10/28/2016 Cbc With Differential Ord2 [...] 2.07 K/ul 10/28/2016 Cbc With Differential Ord2 [place] ABS# 0.6 K/ul 10/28/2016 Cbc With Differential Ord2 Eos ABS# 0.2 K/ul 10/28/2016 Cbc With Differential Ord2 Baso ABS# 0.1 K/ul 10/28/2016 Tsh Ord6 hTSH II 2.77 uIU/mL 10/28/2016 Comp Metabolic Rji772 NA 138 mEq/L 10/28/2016 Comp Metabolic Yhu003 K 4.6 mEq/L 10/28/2016 Comp Metabolic Vje221 CL 104 mEq/L 10/28/2016 Comp Metabolic Ont039 CO2 29.0 mEq/L 10/28/2016 Comp Metabolic Ffk398 ANION GAP 10 10/28/2016 Comp Metabolic Vuv288 GLUCOSE 88 mg/dL 10/28/2016 Comp Metabolic Jkc542 Creat 0.9 mg/dL 10/28/2016 Comp Metabolic Hia599 eGFR 60 ml/min/1.73m2 10/28/2016 Comp Metabolic Thv701 BUN 27 mg/dL 10/28/2016 Comp Metabolic Csk043 B/C Ratio 28.7 Ratio 10/28/2016 Comp Metabolic Dsx582 CALCIUM 9.7 mg/dL 10/28/2016 Comp Metabolic Qgs618 ALK PHOS 58 U/L 10/28/2016 Comp Metabolic Hyh812 AST(SGOT) 20 U/L 10/28/2016 Comp Metabolic Nbp008 ALT(SGPT) 14 U/L 10/28/2016 Comp Metabolic Grk556 BILI T 0.6 mg/dL 10/28/2016 Comp Metabolic Hdj091 ALBUMIN 3.6 g/dL 10/28/2016 Comp Metabolic Ozi866 TPRO 6.3 g/dL 10/28/2016 Comp Metabolic Zxt343 GLOB 2.7 g/dL 10/28/2016 Comp Metabolic Jnw715 A/G Ratio 1.3 Ratio 10/28/2016 Comp Metabolic Pne953 Osmo 280 mOsmo 10/28/2016 LIPID GRP HDL TEST 60 MG/DL 05/13/2015 LIPID GRP TRIG 100 MG/DL 05/13/2015 LIPID GRP TEST LDL 190 MG/DL 05/13/2015 LIPID GRP 3452499 CHOL 270 MG/DL 05/13/2015 LIPID GRP 9215046 RCHOL/HDL 4.50 RATIO 05/13/2015 LIPID GRP NON-HDL CH 210 MG/DL 05/13/2015 LIVER PNL 9659721 AST 29 U/L 05/13/2015 LIVER PNL 2579169 ALK PHOS 70 U/L 05/13/2015 LIVER PNL 7193329 BILI TOT 0.5 MG/DL 05/13/2015 LIVER PNL 7062843 ALT 27 IU/L 05/13/2015 LIVER PNL 3254263 BILI DIR 0.1 MG/DL 05/13/2015 LIVER PNL 0485683 ALBUMIN 3.8 GM/DL 05/13/2015 LIVER PNL 5385460 PROT TOT 7.3 GM/DL 05/13/2015 TSH 8426890 TSH 3.354 uIU/ML 07/24/2013 LIPID GRP HDL TEST 46 MG/DL 07/24/2013 LIPID GRP TRIG 86 MG/DL 07/24/2013 LIPID GRP TEST LDL 113 MG/DL 07/24/2013 LIPID GRP CHOL 176 MG/DL 07/24/2013 LIPID GRP 5458977 RCHOL/HDL 3.83 RATIO 07/24/2013 CHEM 14 2508275 AST 25 U/L 07/24/2013 CHEM 14 1258942 ALT 20 IU/L 07/24/2013 CHEM 14 6738757 BUN 18 MG/DL 07/24/2013 CHEM 14 8120873 ALBUMIN 4.0 GM/DL 07/24/2013 CHEM 14 5631143 CHLORIDE 105 MMOL/L 07/24/2013 CHEM 14 3508591 BILI TOT 0.4 MG/DL 07/24/2013 CHEM 14 1819817 ALK PHOS 57 U/L 07/24/2013 CHEM 14 6869519 SODIUM 139 MMOL/L 07/24/2013 CHEM 14 4190246 CREATININE 0.83 MG/DL 07/24/2013 CHEM 14 4238745 CALCIUM 10.0 MG/DL 07/24/2013 CHEM 14 7865592 POTASSIUM 4.5 MMOL/L 07/24/2013 CHEM 14 4813045 PROT TOT 6.3 GM/DL 07/24/2013 CHEM 14 2638042 GLUCOSE 91 MG/DL 07/24/2013 CHEM 14 1190350 BICARB 28 MMOL/L 07/24/2013 CHEM 14 0979728 ANION GAP 6 MEQ/L 07/24/2013 FREE T4 9159143 FREE T4 1.17 NG/DL 07/24/2013 GFR CALC 4639476 GFR AA >60 ML/MIN 07/24/2013 GFR CALC 4916755 GFR NON-AA >60 ML/MIN 07/24/2013 CBC 7661382 WBC 5.7 10e9/L 07/24/2013 CBC 4947212 RBC 4.39 10e12/L 07/24/2013 CBC 8337645 HGB 13.6 g/dL 07/24/2013 CBC 1193138 HCT DET 41.7 % 07/24/2013 CBC 2201653 MCV 95.0 fL 07/24/2013 CBC 7338740 MCH 31.0 pg 07/24/2013 CBC 5990798 MCHC 32.6 g/dL 07/24/2013 CBC 8909038 PLT 341 10e9/L 07/24/2013 CBC 1435786 MPV 9.7 fL 07/24/2013 CBC 0803577 [place]OR[place] % 37.9 % 07/24/2013 CBC 4558791 LY % 38.1 % 07/24/2013 CBC 3027388 MON % 12.0 % 07/24/2013 CBC 4665138 EOS % 9.9 % 07/24/2013 CBC 1533208 BASO % 2.1 % 07/24/2013 CBC 7856053 RDW 14.1 % 07/24/2013 CBC 8028325 ABS [place]OR[place] 2.16 10e9/L 07/24/2013 CBC 6956303 ABS LYMPH 2.17 10e9/L 07/24/2013 CBC 9044212 ABS MONO 0.68 10e9/L 07/24/2013 CBC 2163541 ABS EOS 0.56 10e9/L 07/24/2013 CBC 6685101 ABS BASO 0.12 10e9/L 07/24/2013 CBC 1561051 RDW-SD 47.2 fL 07/24/2013 FREE T4 6530258 FREE T4 0.97 NG/DL 03/14/2013 TSH 5577819 TSH 6.175 uIU/ML 03/13/2013 LIPID GRP HDL TEST 51 MG/DL 03/13/2013 LIPID GRP TRIG 182 MG/DL 03/13/2013 LIPID GRP TEST LDL 191 MG/DL 03/13/2013 LIPID GRP CHOL 278 MG/DL 03/13/2013 LIPID GRP RCHOL/HDL 5.45 RATIO 03/13/2013 CHEM 14 7985670 AST 23 U/L 03/13/2013 CHEM 14 8259083 ALT 18 IU/L 03/13/2013 CHEM 14 8073981 BUN 21 MG/DL 03/13/2013 CHEM 14 6965104 ALBUMIN 4.1 GM/DL 03/13/2013 CHEM 14 9912400 CHLORIDE 107 MMOL/L 03/13/2013 CHEM 14 9616410 BILI TOT 0.4 MG/DL 03/13/2013 CHEM 14 1214491 ALK PHOS 57 U/L 03/13/2013 CHEM 14 5599325 SODIUM 140 MMOL/L 03/13/2013 CHEM 14 4483951 CREATININE 0.94 MG/DL 03/13/2013 CHEM 14 7072644 CALCIUM 9.8 MG/DL 03/13/2013 CHEM 14 8860359 POTASSIUM 4.4 MMOL/L 03/13/2013 CHEM 14 6226853 PROT TOT 6.1 GM/DL 03/13/2013 CHEM 14 5488639 GLUCOSE 90 MG/DL 03/13/2013 CHEM 14 0734413 BICARB 27 MMOL/L 03/13/2013 CHEM 14 6042087 ANION GAP 6 MEQ/L 03/13/2013 GFR CALC 5241640 GFR AA >60 ML/MIN 03/13/2013 GFR CALC 1793423 GFR NON-AA 57.0L ML/MIN 03/13/2013 CBC 7646469 WBC 4.9 10e9/L 07/02/2012 CBC 0901060 RBC 4.20 10e12/L 07/02/2012 CBC 9493524 HGB 13.3 g/dL 07/02/2012 CBC 5877727 HCT DET 40.2 % 07/02/2012 CBC 5459924 MCV 95.7 fL 07/02/2012 CBC 7199773 MCH 31.7 pg 07/02/2012 CBC 5383363 MCHC 33.1 g/dL 07/02/2012 CBC 7624364 PLT 317 10e9/L 07/02/2012 CBC 0470386 MPV 10.3 fL 07/02/2012 CBC 6860502 [place] % 40.1 % 07/02/2012 CBC 5107113 LY % 42.8 % 07/02/2012 CBC 4681478 MON % 12.0 % 07/02/2012 CBC 6597436 EOS % 4.3 % 07/02/2012 CBC 6050664 BASO % 0.8 % 07/02/2012 CBC 4900581 RDW 13.9 % 07/02/2012 CBC 7854814 ABS [place] 1.96 10e9/L 07/02/2012 CBC 9270696 ABS LYMPH 2.10 10e9/L 07/02/2012 CBC 4693618 ABS MONO 0.59 10e9/L 07/02/2012 CBC 8774921 ABS EOS 0.21 10e9/L 07/02/2012 CBC 6946280 ABS BASO 0.04 10e9/L 07/02/2012 CBC 6916142 RDW-SD 47.3 fL 07/02/2012 CHEM 14 7345051 AST 23 U/L 07/02/2012 CHEM 14 2109483 ALT 20 IU/L 07/02/2012 CHEM 14 0222569 BUN 14 MG/DL 07/02/2012 CHEM 14 1371320 ALBUMIN 3.8 GM/DL 07/02/2012 CHEM 14 0919386 CHLORIDE 108 MMOL/L 07/02/2012 CHEM 14 4249406 BILI TOT 0.4 MG/DL 07/02/2012 CHEM 14 6672743 ALK PHOS 66 U/L 07/02/2012 CHEM 14 1317923 SODIUM 143 MMOL/L 07/02/2012 CHEM 14 3708001 CREATININE 0.88 MG/DL 07/02/2012 CHEM 14 6130784 CALCIUM 9.7 MG/DL 07/02/2012 CHEM 14 3533797 POTASSIUM 4.6 MMOL/L 07/02/2012 CHEM 14 7639915 PROT TOT 6.4 GM/DL 07/02/2012 CHEM 14 2145767 GLUCOSE 87 MG/DL 07/02/2012 CHEM 14 3744488 BICARB 28 MMOL/L 07/02/2012 CHEM 14 4969156 ANION GAP 7 MEQ/L 07/02/2012 GFR CALC 1309778 GFR AA >60 ML/MIN 07/02/2012 GFR CALC 2371954 GFR NON-AA >60 ML/MIN 07/02/2012 FREE T4 0807896 FREE T4 1.10 NG/DL 07/02/2012 TSH 1287284 TSH 2.909 uIU/ML 07/02/2012 LIPID GRP HDL TEST 54 MG/DL 07/02/2012 LIPID GRP TRIG 102 MG/DL 07/02/2012 LIPID GRP TEST LDL 109 MG/DL 07/02/2012 LIPID GRP CHOL 183 MG/DL 07/02/2012 LIPID GRP RCHOL/HDL 3.39 RATIO 07/02/2012 URINALYSIS NONAUTO W/O SCOPE 49582 Specific [place] 1.005 DateTime(Free Text in Aprima) URINALYSIS NONAUTO W/O SCOPE 43772 PH 5.0 DateTime(Free Text in Aprima) URINALYSIS NONAUTO W/O SCOPE 85984 GLUCOSE NEG DateTime(Free Text in Aprima) URINALYSIS NONAUTO W/O SCOPE 90038 Protein NEG DateTime(Free Text in Aprima) URINALYSIS NONAUTO W/O SCOPE 23005 Blood NEG DateTime(Free Text in Apr) URINALYSIS NONAUTO W/O SCOPE 64038 Bilirubin NEG DateTime(Free Text in Aprima) URINALYSIS NONAUTO W/O SCOPE 19331 Ketones NEG DateTime(Free Text in Aprima) URINALYSIS NONAUTO W/O SCOPE 80827 Urobilinogen NEG DateTime(Free Text in Aprima) URINALYSIS NONAUTO W/O SCOPE 57245 Nitrite NEG DateTime(Free Text in Aprima) URINALYSIS NONAUTO W/O SCOPE 58625 Leukocytes NEG DateTime(Free Text in ) Review of Systems System Result Effective Dates Constitutional No recent illness 06/14/2018 Constitutional No [...] Effective Dates Notes Full Exam - General 1995 Constitutional general appearance Overall: well developed 06/14/2018 None Full Exam - General 1995 Constitutional general appearance Overall: well nourished 06/14/2018 [...] lips 09/19/2017 None Full Exam - General 1995 Ears/Nose/Throat lips/teeth/gingiva Overall: normal dentition 09/19/2017 None [...] General 1994 Ears/Nose/Throat lips/teeth/gingiva Overall: benign lips 05/22/2013 None Full Exam - General 1994 Ears/Nose/Throat lips/teeth/gingiva Overall: normal dentition 05/22/2013 None Full Exam - General 1995 Ears/Nose/Throat lips/teeth/gingiva Overall: benign gingiva 05/22/2013 None Full Exam - General 1995 Ears/Nose/Throat lips/teeth/gingiva Overall: no masses 05/22/2013 None Full Exam - General 1994 Ears/Nose/Throat oral cavity/pharynx/larynx Overall: hypopharynx benign 05/22/2013 None Full Exam - General 1994 Ears/Nose/Throat oral cavity/pharynx/larynx Hard palate: ulcer 05/22/2013 [...] lips 02/20/2013 None Full Exam - General 1994 Ears/Nose/Throat lips/teeth/gingiva Overall: normal dentition 02/20/2013 None Full Exam - General 1995 Ears/Nose/Throat lips/teeth/gingiva Overall: benign gingiva 02/20/2013 None Full Exam - General 1994 Ears/Nose/Throat lips/teeth/gingiva Overall: no masses 02/20/2013 None Full Exam - General 1994 Ears/Nose/Throat oral cavity/pharynx/larynx Overall: hypopharynx benign 02/20/2013 [...] 02/20/2013 None Full Exam - General 1995 Musculoskeletal [...] clubbing 10/25/2012 None Full Exam - General 1995 Cardiovascular auscultation of heart Overall: regular rate 10/25/2012 None Full Exam - General 1994 Cardiovascular auscultation of heart Overall: normal heart sounds 10/25/2012 None Full Exam - General 1994 Cardiovascular auscultation of heart Overall: no murmurs 10/25/2012 None Full Exam - General 1995 Abdomen abdominal exam Overall: no tenderness 10/25/2012 None Full Exam - General 1995 Abdomen abdominal exam Overall: normal bowel sounds 10/25/2012 None Full Exam - General 1994 Musculoskeletal spine, ribs and pelvis Overall: good posture 10/25/2012 None Full Exam - General 1995 Musculoskeletal [...] lips 07/04/2012 None Full Exam - General 1995 Ears/Nose/Throat lips/teeth/gingiva Overall: normal dentition 07/04/2012 None Full Exam - General 1995 Ears/Nose/Throat lips/teeth/gingiva Overall: benign gingiva 07/04/2012 None Full Exam - General 1995 Ears/Nose/Throat lips/teeth/gingiva Overall: no masses 07/04/2012 None Full Exam - General 1994 Ears/Nose/Throat oral cavity/pharynx/larynx Overall: hypopharynx benign 07/04/2012 None Full Exam - General 1995 Ears/Nose/Throat oral cavity/pharynx/larynx Hard palate: ulcer 07/04/2012 [...] distress 04/27/2011 None Full Exam - General 1995 Eyes pupils and irises Overall: pupils equal, round, reactive to light and accomodation 04/27/2011 None Full Exam - General 1995 Ears/Nose/Throat otoscopic exam Overall: tympanic membranes clear 04/27/2011 None Full Exam - General 1995 Ears/Nose/Throat otoscopic exam Overall: external auditory canals clear 04/27/2011 None Full Exam - General 1995 Ears/Nose/Throat lips/teeth/gingiva Overall: benign gingiva 04/27/2011 None Full Exam - General 1995 Ears/Nose/Throat lips/teeth/gingiva Overall: no masses 04/27/2011 None Full Exam - General 1995 Ears/Nose/Throat lips/teeth/gingiva Overall: normal dentition 04/27/2011 None [...] INJ NOS CPT-4: J3301 02/03/2017 PAP CPT-4: 1488431 10/17/2016 ROUTINE VENIPUNCTURE CPT- 4: 15662 07/24/2013 ROUTINE VENIPUNCTURE CPT- 4: 10539 03/13/2013 PRESCRIP TRANSMIT VIA ERX SY CPT-4: G8553 10/25/2012 ROUTINE VENIPUNCTURE CPT- 4: 98159 07/02/2012 PRESCRIP TRANSMIT VIA ERX SY CPT-4: G8553 12/26/2011 ROUTINE VENIPUNCTURE CPT- 4: 60744 10/20/2011 URINALYSIS NONAUTO W/O SCOPE CPT-4: 58723 09/15/2011 PRESCRIP TRANSMIT VIA ERX SY CPT-4: G8553 09/15/2011 ROUTINE VENIPUNCTURE CPT- 4: 13662 06/07/2011 PRESCRIP TRANSMIT VIA ERX SY CPT-4: G8553 04/27/2011 Vital Signs Date Vital 06/14/2018 Blood Pressure 1: 142/76 Code: 8480-6 BMI: 33.0 Code: 01371-7 Heart Rate 1: 72 bpm Height: 5'4" SpO2: 97% Waist Measure (cm): 107 cm Weight: 195 lbs 09/19/2017 Blood Pressure 1: 148/70 Code: 8480-6 BMI: 33.3 Code: 61492-6 Heart Rate 1: 82 bpm Height: 5'4" SpO2: 98% Weight: 197 lbs 07/21/2017 Blood Pressure 1: 160/62 Code: 8480-6 Blood Pressure 1: 144/68 Code: 8480-6 BMI: 33.3 Code: 50827-2 Heart Rate 1: 75 bpm Height: 5'4" SpO2: 98% Weight: 197 lbs 02/06/2017 Blood Pressure 1: 142/84 Code: 8480-6 BMI: 32.1 Code: 19209-4 Heart Rate 1: 76 bpm Height: 5'4" SpO2: 96% Weight: 190 lbs 02/03/2017 Blood Pressure 1: 142/84 Code: 8480-6 BMI: 32.2 Code: 91951-9 Heart Rate 1: 76 bpm Height: 5'4" SpO2: 96% Weight: 190 lbs 8 oz 10/17/2016 Blood Pressure 1: 136/90 Code: 8480-6 BMI: 31.6 Code: 90406-4 Heart Rate 1: 76 bpm Height: 5'4" SpO2: 98% Weight: 187 lbs 07/14/2015 Blood Pressure 1: 150/80 Code: 8480-6 BMI: 31.1 Code: 31299-9 Heart Rate 1: 74 bpm Height: 5'4" SpO2: 95% Weight: 184 lbs 11/17/2014 Blood Pressure 1: 142/88 Code: 8480-6 BMI: 32.3 Code: 25074-4 Heart Rate 1: 72 bpm Height: 5'4" Weight: 191 lbs 05/19/2014 Blood Pressure 1: 136/74 Code: 8480-6 BMI: 32.8 Code: 65606-2 Heart Rate 1: 72 bpm Height: 5'4" Weight: 194 lbs 11/04/2013 Blood Pressure 1: 154/76 Code: 8480-6 BMI: 31.4 Code: 31116-7 Heart Rate 1: 76 bpm Height: 5'4" Weight: 186 lbs 08/05/2013 Blood Pressure 1: 150/78 Code: 8480-6 BMI: 30.9 Code: 02417-8 Heart Rate 1: 60 bpm Height: 5'4" Weight: 183 lbs 05/22/2013 Blood Pressure 1: 156/76 Code: 8480-6 BMI: 31.8 Code: 08318-0 Heart Rate 1: 72 bpm Height: 5'4" Weight: 188 lbs 02/20/2013 Blood Pressure 1: 138/78 Code: 8480-6 BMI: 32.1 Code: 31174-6 Heart Rate 1: 72 bpm Height: 5'4" Weight: 190 lbs 10/25/2012 Blood Pressure 1: 138/82 Code: 8480-6 BMI: 31.8 Code: 30194-2 Heart Rate 1: 72 bpm Height: 5'4" Weight: 188 lbs 07/04/2012 Blood Pressure 1: 136/70 Code: 8480-6 Heart Rate 1: 72 bpm Weight: 187 lbs 12/26/2011 Blood Pressure 1: 152/82 Code: 8480-6 BMI: 30.4 Code: 86782-9 Heart Rate 1: 78 bpm Height: 5'4" Respiratory Rate: 16 bpm Weight: 180 lbs 10/26/2011 Blood Pressure 1: 140/64 Code: 8480-6 Heart Rate 1: 64 bpm Weight: 181 lbs 8 oz 09/15/2011 Blood Pressure 1: 152/82 Code: 8480-6 BMI: 30.8 Code: 59072-1 Heart Rate 1: 60 bpm Height: 5'4" Temperature: 36.8 (C) / 98.3 (F) Weight: 182 lbs 06/07/2011 Blood Pressure 1: 154/80 Code: 8480-6 05/10/2011 Blood Pressure 1: 122/66 Code: 8480-6 BMI: 30.7 Code: 17810-5 Heart Rate 1: 66 bpm Height: 5'4" Respiratory Rate: 12 bpm Weight: 181 lbs 8 oz 04/27/2011 Blood Pressure 1: 136/70 Code: 8480-6 BMI: 30.6 Code: 36007-9 Heart Rate 1: 72 bpm Height: 5'4" [...] data Encounters Encounter Performer Location Codes Date [id number] EST. PATIENT, LEVEL IV Diagnosis: Low back pain[ICD10: M54.5] [facility] CPT-4: 03837 09/19/2017 ([id number]) 86817 EST. PATIENT, LEVEL III Diagnosis: Essential (primary) hypertension[ICD10: I10] Diagnosis: Epigastric pain[ICD10: R10.13] Tori Abdalla MD [facility] CPT-4: 46579 07/21/2017 ([id number]) [id number] EST. PATIENT, LEVEL III Diagnosis: Low back pain[ICD10: M54.5] Tori Abdalla MD [facility] CPT-4: 89417 02/03/2017 ([id number]) 15646 EST. PATIENT, LEVEL IV Diagnosis: Encounter for gynecological examination (general) (routine) without abnormal findings[ICD10: Z01.419] Tori Abdalla MD [facility] CPT-4: 95121 10/17/2016 04427 EST. PATIENT, LEVEL III Diagnosis: Low back pain[ICD10: M54.5] [facility] SERVICES CPT-4: 72627 07/14/2015 ([id number]) 54436 EST. PATIENT, LEVEL III Diagnosis: ESSENTIAL HYPERTENSION[ICD9: 401.9] Marcela Abdalla MD [facility] CPT- 4: 22195 11/17/2014 ([id number]) 10093 EST. PATIENT, LEVEL III Diagnosis: ESSENTIAL HYPERTENSION[ICD9: 401.9] Diagnosis: HYPERLIPIDEMIA[ICD9: 272.4] Diagnosis: HYPOTHYROIDISM[ICD9: 244.9] Marcela Abdalla MD [facility] CPT-4: 14252 05/19/2014 ([id number]) 94090 EST. PATIENT, LEVEL IV Diagnosis: HYPOTHYROIDISM[ICD9: 244.9] Diagnosis: ESSENTIAL HYPERTENSION[SNOMED: 41549079] Marcela Abdalla MD [facility] CPT-4: 61922 11/04/2013 ([id number]) 15399 EST. PATIENT, LEVEL III Diagnosis: ESSENTIAL HYPERTENSION[SNOMED: 09452514] Marcela Abdalla MD [facility] CPT-4: 04052 08/05/2013 ([id number]) 09375 EST. PATIENT, LEVEL III Diagnosis: ESSENTIAL HYPERTENSION[SNOMED: 95267330] Marcela Abdalla MD [facility] CPT-4: 82629 05/22/2013 ([id number]) 22100 EST. PATIENT, LEVEL III Diagnosis: ESSENTIAL HYPERTENSION[SNOMED: 85229501] Marcela Abdalla MD [facility] CPT-4: 45460 02/20/2013 ([id number]) 28580 EST. PATIENT, LEVEL IV Diagnosis: ESSENTIAL HYPERTENSION[SNOMED: 58261437] Diagnosis: HYPERLIPIDEMIA[ICD9: 272.4] Diagnosis: NONSPECIF SKIN ERUPT NEC[ICD9: 782.1] Marcela Abdalla MD, [facility] CPT-4: 36352 10/25/2012 [id number]) 44498 EST. PATIENT, LEVEL IV Diagnosis: ESSENTIAL HYPERTENSION[SNOMED: 45063298] Diagnosis: HYPERLIPIDEMIA[ICD9: 272.4] Marcela Abdalla MD, [facility] CPT-4: 60269 07/04/2012 ([id number]) 58385 EST. PATIENT, LEVEL IV Diagnosis: ESSENTIAL HYPERTENSION[SNOMED: 15801116] Diagnosis: HYPERLIPIDEMIA[ICD9: 272.4] Marcela Abdalla MD, [facility] CPT-4: 49041 12/26/2011 ([id number] 64835 EST. PATIENT, LEVEL IV Diagnosis: ESSENTIAL HYPERTENSION[SNOMED: 38869153] Diagnosis: HYPERLIPIDEMIA[ICD9: 272.4] Marcela Abdalla MD, [facility] CPT-4: 18573 10/26/2011 ([id number]) 40886 EST. PATIENT, LEVEL IV Diagnosis: BPPV (benign paroxysmal positional vertigo)[ICD9: 386.11] Diagnosis: ESSENTIAL HYPERTENSION[SNOMED: 08822257] Tori Abdalla MD, [facility] CPT-4: 82665 09/15/2011 45844 EST. PATIENT, LEVEL III Diagnosis: Lesion of oral mucosa[ICD9: 528.9] Diagnosis: Rash and nonspecific skin eruption[ICD9: 782.1] Marcela Abdalla MD, [facility] CPT-4: 86939 05/10/2011 20902 EST. PATIENT, LEVEL IV Diagnosis: ESSENTIAL HYPERTENSION[SNOMED: 47106739] Diagnosis: Mouth sores[ICD9: 528.9] Marcela Abdalla MD, [facility] CPT-4: 77622 04/27/2011 Plan of Care Planned Activity Notes Codes Status Date Referral: Marcelino Rojo WPtel: Patient informed. Referral [...] 06/14/2018 Care Plan: Referral Order SNOMED-CT : [id number] Pending 06/14/2018 [facility]ment[phone] [facility] - Annual Wellness Visit 02/12/2018 Visit Plan: [...] not improve. 09/19/2017 App[facility]ment: [phone] ([facility] Complex 09/19/2017 Patient Education: [...] is to call for acute concerns. Epigastric wxss-fkeocpmt-phhwd prilosec daily-monitor symptoms and call if abdominal pain does not improve or if any worse 07/21/2017 Appointment: [phone] [place] (30 min) Complex 07/21/2017 Patient [...] care surrogate. 02/06/2017 Appointment: Katie Ellis WPtel: [facility]5 [facility] [facility] - Annual Wellness Visit 02/06/2017 Patient Education: [...] the office. 02/03/2017 Appointment: Tori Duvall WPtel: [facility] (30 min) Complex 02/03/2017 Patient Education: [...] Recommend mammogram 10/17/2016 Appointment: Tori Duvall WPtel: [facility]5 [facility] [place] [address] [facility] 10/17/2016 Patient Education: Patient Medication [...] home. 11/17/2014 Appointment: Marcela Abdalla WPtel: [phone] [facility] Follow up 11/17/2014 Patient Education: Patient Medication [...] at home. 05/19/2014 Appointment: Marcela Abdalla WPtel: [facility] Follow up 05/19/2014 Patient Education: Patient Medication [...] of control. 11/04/2013 Appointment: Marcela Abdalla WPtel: [facility] Follow up 11/04/2013 Patient Education: Patient Medication [...] at home. 08/05/2013 Appointment: Marcela Abdalla WPtel: [facility] Follow up 08/05/2013 Patient Education: Patient Medication [...] home. 05/22/2013 Appointment: [phone] [facility] [facility] 05/22/2013 Patient Education: Patient Medication [...] home. 02/20/2013 Appointment: Marcel[facility]alla [phone] [facility] Follow up 02/20/2013 Patient Education: Patient Medication [...] basis 10/25/2012 Appointment: Marcela Abdalla [phone] [facility] Follow [facility] 10/25/2012 Patient Education: Patient Medication [...] to medications. 07/04/2012 Appointment: Marcela Abdalla WPtel: [phone] [facility] [facility] Patient Preventative visit 07/04/2012 Patient Education: Patient Medication Summary Completed 07/04/2012 Patient Education: 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 Completed 07/04/2012 Appointment: Marcela Abdalla [facility]Ptel[phone] [facility] Lab Draw 07/02/2012 Patient Education: Patient Medication [...] to medications. 12/26/2011 Appointment: Marcela Abdalla [facility]Ptel[phone] [facility] Other 12/26/2011 Patient Education: Patient Medication Summary [...] medications. 10/26/2011 Appointment: Marcela Abdalla [facility]Ptel[facility] [phone] [facility] Other 10/26/2011 Patient Education: Patient Medication Summary Completed 10/26/2011 Patient Education: High Blood Pressure: Essential 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 Completed 10/26/2011 Appointment: Marcela Abdalla WPtel[phone] [facility] [place] Lab Draw 10/20/2011 Patient Education: Patient [...] vision changes. 09/15/2011 Appointment: Tori Duvall WPtel: [phone] [phone] [place] Lab Draw 09/15/2011 Patient Education: Patient Medication Summary Completed 09/15/2011 Patient Education: .Amazing charts Paroxysmal positional vertigo Completed 09/15/2011 Patient Education: High Blood Pressure: Essential 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 Completed 09/15/2011 Appointment: Marcela Abdalla WPtel: [facility]5 [facility] [place] Lab Draw 06/07/2011 Patient Education: Patient [...] the rash. 05/10/2011 Appointment: Marcela Abdalla WPtel: [address] [place], [place] [id number] Other 05/10/2011 Patient Education: Patient Medication Summary Completed 05/10/2011 Appointment: Marcela Abdalla WPtel: [address] [place] [address] Follow up 05/04/2011 Visit Plan: HTN- improved from high blood pressure earlier this week No change in current medication. Try to avoid high salt containing foods. 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 [...] is to call for acute concerns. 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
[2019-01-10] MEDS ORDERED: ONDANSETRON 4 MG/2 ML (SDV) Z0FRAN IV ONE (12:45)
--- OUTSIDE RECORDS SUMMARY | 2019-01-10 12:45 | XMS REPORT | CCD ---
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 Name Role Phone PP Unavailable CCM Unavailable Summary Purpose Interface Exchange Insurance Providers Payer name Policy type / Coverage type Covered alliance party ID Effective Begin Date Effective End Date WPS Medicare Part B Medicare Part B [id number] Unknown Unknown [facility] Medicare Part B [id number] Unknown Unknown Family history Daughter Diagnosis Age [...] Unknown 04/27/2011 Number of children Unknown 4 [id number] 04/27/2011 Employment Unknown Retired 04/27/[address]: 522939412 Never smoker 04/27/[address]: 982814917 Never drinks alcohol 04/27/2011 Has the patient [...] Start Date Stop Date Status Fill Instructions lisinopril 10 mg tablet RxNorm: 777198 TAKE ONE TABLET BY MOUTH ONCE DAILY IN THE EVENING 08/08/2018 No Stop Date Active prednisone 20 mg tablet RxNorm: 857958 2 Tablet(s) PO daily 09/19/2017 09/23/2017 Inactive lisinopril 10 mg tablet RxNorm: 882498 1 Tablet(s) PO QPM 07/21/2017 01/16/2018 Inactive Kenalog 40 mg/mL suspension for injection RxNorm: 9334700 1 Milliliter(s) Inj 02/03/2017 02/03/2017 Inactive Zocor 10 mg tablet RxNorm: 293460 1 Tablet(s) PO daily 05/14/2015 05/13/2015 Inactive Zocor 10 mg tablet RxNorm: 001739 1 Tablet(s) PO daily 05/14/2015 05/06/2016 Inactive Zocor 10 mg tablet RxNorm: 998929 1 Tablet(s) PO daily 05/14/2015 05/07/2016 Inactive qddqfuvm-xabayecbb-lmbidiawr 3.5 mg/g-10,000 unit/g-0.5 %topical cream RxNorm: 5976575 3 gtts TOP TID 11/17/2014 11/26/2014 Inactive [SAVINGS FOR NON-COVERED DRUGS -- BIN:[id number], PCN: [id number], Group: XXXXX, ID# [id number], Questions: . THIS IS NOT INSURANCE.] simvastatin 40 mg tablet RxNorm: 660421 1/2 Tablet(s) PO QHS 10/09/2013 11/03/2013 Inactive Synthroid 25 mcg tablet RxNorm: 080262 1 Tablet(s) PO daily 08/19/2013 11/11/2014 Inactive clobetasol 0.05 % Topical Cream RxNorm: 512912 1 Application TOP TID PRN 04/05/2013 07/03/2013 Inactive nystatin 100,000 unit/gram Topical Powder RxNorm: 729613 Gram(s) TOP apply to affected area as needed 03/22/2013 10/16/2016 Inactive fluconazole 150 mg tablet RxNorm: 825738 1 Tablet(s) PO 03/19/2013 03/18/2013 Inactive take one at outbreak and then use nystatin powder (she has nystatin at home) fluconazole 150 mg tablet RxNorm: 656094 1 Tablet(s) PO 03/19/2013 03/25/2013 Inactive take one at outbreak and then use nystatin powder (she has nystatin at home) simvastatin 40 mg tablet RxNorm: 192574 1/2 Tablet(s) PO QHS 03/18/2013 07/15/2013 Inactive Synthroid 25 mcg tablet RxNorm: 038682 1 Tablet(s) PO daily 03/18/2013 08/14/2013 Inactive clobetasol 0.05 % Topical Cream RxNorm: 428021 1 Application TOP TID PRN 10/25/2012 01/22/2013 Inactive Coreg 3.125 mg tablet RxNorm: 871240 1 Tablet(s) PO BID 04/17/2012 07/03/2012 Inactive Coreg 3.125 mg tablet RxNorm: 320076 1 Tablet(s) PO BID 03/16/2012 04/14/2012 Inactive Diflucan 150 mg Tab RxNorm: 057622 1 Tablet(s) PO daily 12/26/2011 01/22/2012 Inactive simvastatin 40 mg tablet RxNorm: 735212 1/2 Tablet(s) PO QHS 04/27/2011 03/17/2013 Inactive Vitamin C Oral RxNorm: Oral No Start Date 10/16/2016 Inactive Synthroid 25 mcg tablet RxNorm: 930602 Tablet(s) PO No Start Date 03/17/2013 Inactive coenzyme Q10 75 mg Cap RxNorm: 982263 1 Capsule(s) PO daily No Start Date 10/16/2016 Inactive Coreg 3.125 mg tablet RxNorm: 186011 1 Tablet(s) PO BID No Start Date 03/15/2012 Inactive simvastatin 40 mg Tab RxNorm: 580835 1 Tablet(s) PO QHS No Start Date 04/26/2011 Inactive aspirin 81 mg capsule,delayed release RxNorm: 206749 1 Capsule(s) PO daily No Start Date 10/16/2016 Inactive metoprolol succinate ER 50 mg tablet,extended release 24 hr RxNorm: 828287 1 Tablet(s) PO daily No Start Date 10/16/2016 Inactive lisinopril 20 mg tablet RxNorm: 170894 1 Tablet(s) PO as needed No Start Date 07/20/2017 Inactive Bystolic 5 mg Tab RxNorm: 877782 1 Tablet(s) PO daily No Start Date 10/30/2011 Inactive clobetasol 0.05 % Topical Cream RxNorm: 967413 TOP No Start Date 10/24/2012 Inactive omega-3 fatty acids 1,250 mg Cap RxNorm: 3065245 1 Capsule(s) PO daily No Start Date 10/16/2016 Inactive coenzyme Q10 oral RxNorm: 30347 oral No Start Date 06/13/2018 Inactive meclizine 12.5 mg Tab RxNorm: 157619 1/2-1 Tablet(s) PO Q6 PRN No Start Date 05/18/2014 Inactive promethazine 25 mg Rectal Suppository RxNorm: 770321 1 Suppository RTL Q6 PRN No Start Date 07/03/2012 Inactive nystatin 100,000 unit/gram Topical Powder RxNorm: 970779 Gram(s) TOP apply to affected area as needed No Start Date 03/21/2013 Inactive Medication Administered Medication Codes Instructions Start Date Status Kenalog 40 mg/mL suspension for injection RxNorm: 3231846 1Milliliter 02/03/2017 No longer Active Immunizations Vaccine [...] 31.5 pg 06/18/2018 Cbc With Differential Ord2 [place]% 13.3 % 06/18/2018 Cbc With Differential Ord2 [...] 1.82 K/ul 06/18/2018 Cbc With Differential Ord2 [place] ABS# 0.6 K/ul 06/18/2018 Cbc With Differential Ord2 Eos ABS# 0.2 K/ul 06/18/2018 Cbc With Differential Ord2 Baso ABS# 0.1 K/ul 06/18/2018 Lipid Ord30 CHOL 259 mg/dL 06/18/2018 Lipid Ord30 HDL 59.0 mg/dl 06/18/2018 Lipid Ord30 TRIG 115 mg/dL 06/18/2018 Lipid Ord30 LDL 177 mg/dL 06/18/2018 Lipid Ord30 C/HDL 4.4 Ratio 06/18/2018 Tsh Ord6 TSH (3rd IS) 2.11 uIU/mL 06/18/2018 Comp Metabolic Ucy167 NA 141 mEq/L 06/18/2018 Comp Metabolic Fou885 K 4.7 mEq/L 06/18/2018 Comp Metabolic Ofs931 CL 106 mEq/L 06/18/2018 Comp Metabolic Wty917 CO2 28.0 mEq/L 06/18/2018 Comp Metabolic Aap429 ANION GAP 12 06/18/2018 Comp Metabolic Ffq362 GLUCOSE 85 mg/dL 06/18/2018 Comp Metabolic Ebf576 Creat 0.8 mg/dL 06/18/2018 Comp Metabolic Vgu482 eGFR 71 ml/min/1.73m2 06/18/2018 Comp Metabolic Dmv120 BUN 18 mg/dL 06/18/2018 Comp Metabolic Wqq044 B/C Ratio 22.2 Ratio 06/18/2018 Comp Metabolic Quq867 CALCIUM 9.4 mg/dL 06/18/2018 Comp Metabolic Lpv978 ALK PHOS 69 U/L 06/18/2018 Comp Metabolic Bha836 AST(SGOT) 22 U/L 06/18/2018 Comp Metabolic Woy742 ALT(SGPT) 16 U/L 06/18/2018 Comp Metabolic Ybh747 BILI T 0.5 mg/dL 06/18/2018 Comp Metabolic Jhd545 ALBUMIN 3.9 g/dL 06/18/2018 Comp Metabolic Bcd474 TPRO 6.5 g/dL 06/18/2018 Comp Metabolic Mls515 GLOB 2.6 g/dL 06/18/2018 Comp Metabolic Snw545 A/G Ratio 1.5 Ratio 06/18/2018 Comp Metabolic Nks724 Osmo 282 mOsmo 06/18/2018 Lipid Ord30 CHOL [...] 41.8 % 10/28/2016 Cbc With Differential Ord2 [place]% 11.9 % 10/28/2016 Cbc With Differential Ord2 MCH 31.1 pg 10/28/2016 Cbc With Differential Ord2 MCHC 32.7 pg 10/28/2016 Cbc With Differential Ord2 Eos% 4.8 % 10/28/2016 Cbc With Differential Ord2 Baso% 1.0 % 10/28/2016 Cbc With Differential Ord2 PLT 300 K/ul 10/28/2016 Cbc With Differential Ord2 Neut ABS# 2.00 K/ul 10/28/2016 Cbc With Differential Ord2 RDW 15.1 % 10/28/2016 Cbc With Differential Ord2 Lymph ABS# 2.07 K/ul 10/28/2016 Cbc With Differential Ord2 [place]oke ABS# 0.6 K/ul 10/28/2016 Cbc With Differential Ord2 Eos ABS# 0.2 K/ul 10/28/2016 Cbc With Differential Ord2 Baso ABS# 0.1 K/ul 10/28/2016 Tsh Ord6 hTSH II 2.77 uIU/mL 10/28/2016 Comp Metabolic Vqo650 NA 138 mEq/L 10/28/2016 Comp Metabolic Spn478 K 4.6 mEq/L 10/28/2016 Comp Metabolic Sqa339 CL 104 mEq/L 10/28/2016 Comp Metabolic Vfq840 CO2 29.0 mEq/L 10/28/2016 Comp Metabolic Ryq128 ANION GAP 10 10/28/2016 Comp Metabolic Vrc252 GLUCOSE 88 mg/dL 10/28/2016 Comp Metabolic Kdu754 Creat 0.9 mg/dL 10/28/2016 Comp Metabolic Ncy911 eGFR 60 ml/min/1.73m2 10/28/2016 Comp Metabolic Nej707 BUN 27 mg/dL 10/28/2016 Comp Metabolic Wil775 B/C Ratio 28.7 Ratio 10/28/2016 Comp Metabolic Sid087 CALCIUM 9.7 mg/dL 10/28/2016 Comp Metabolic Adv959 ALK PHOS 58 U/L 10/28/2016 Comp Metabolic Pav998 AST(SGOT) 20 U/L 10/28/2016 Comp Metabolic Ezb763 ALT(SGPT) 14 U/L 10/28/2016 Comp Metabolic Lnm810 BILI T 0.6 mg/dL 10/28/2016 Comp Metabolic Ycg780 ALBUMIN 3.6 g/dL 10/28/2016 Comp Metabolic Oxu466 TPRO 6.3 g/dL 10/28/2016 Comp Metabolic Exm768 GLOB 2.7 g/dL 10/28/2016 Comp Metabolic Dli312 A/G Ratio 1.3 Ratio 10/28/2016 Comp Metabolic Sbp724 Osmo 280 mOsmo 10/28/2016 LIPID GRP HDL TEST 60 MG/DL 05/13/2015 LIPID GRP TRIG 100 MG/DL 05/13/2015 LIPID GRP TEST LDL 190 MG/DL 05/13/2015 LIPID GRP CHOL 270 MG/DL 05/13/2015 LIPID GRP RCHOL/HDL 4.50 RATIO 05/13/2015 LIPID GRP NON-HDL CH 210 MG/DL 05/13/2015 LIVER PNL 7870915 AST 29 U/L 05/13/2015 LIVER PNL 7248146 ALK PHOS 70 U/L 05/13/2015 LIVER PNL 6103056 BILI TOT 0.5 MG/DL 05/13/2015 LIVER PNL 4141508 ALT 27 IU/L 05/13/2015 LIVER PNL 0438191 BILI DIR 0.1 MG/DL 05/13/2015 LIVER PNL 9362872 ALBUMIN 3.8 GM/DL 05/13/2015 LIVER PNL 8195648 PROT TOT 7.3 GM/DL 05/13/2015 TSH 6730678 TSH 3.354 uIU/ML 07/24/2013 LIPID GRP HDL TEST 46 MG/DL 07/24/2013 LIPID GRP TRIG 86 MG/DL 07/24/2013 LIPID GRP TEST LDL 113 MG/DL 07/24/2013 LIPID GRP CHOL 176 MG/DL 07/24/2013 LIPID GRP RCHOL/HDL 3.83 RATIO 07/24/2013 CHEM 14 4390315 AST 25 U/L 07/24/2013 CHEM 14 2420556 ALT 20 IU/L 07/24/2013 CHEM 14 3251471 BUN 18 MG/DL 07/24/2013 CHEM 14 9827748 ALBUMIN 4.0 GM/DL 07/24/2013 CHEM 14 0277709 CHLORIDE 105 MMOL/L 07/24/2013 CHEM 14 1877663 BILI TOT 0.4 MG/DL 07/24/2013 CHEM 14 8452915 ALK PHOS 57 U/L 07/24/2013 CHEM 14 3064617 SODIUM 139 MMOL/L 07/24/2013 CHEM 14 5652288 CREATININE 0.83 MG/DL 07/24/2013 CHEM 14 8838475 CALCIUM 10.0 MG/DL 07/24/2013 CHEM 14 7486863 POTASSIUM 4.5 MMOL/L 07/24/2013 CHEM 14 5533283 PROT TOT 6.3 GM/DL 07/24/2013 CHEM 14 3357317 GLUCOSE 91 MG/DL 07/24/2013 CHEM 14 0202910 BICARB 28 MMOL/L 07/24/2013 CHEM 14 5974459 ANION GAP 6 MEQ/L 07/24/2013 FREE T4 6620266 FREE T4 1.17 NG/DL 07/24/2013 GFR CALC 7686404 GFR AA >60 ML/MIN 07/24/2013 GFR CALC 1692073 GFR NON-AA >60 ML/MIN 07/24/2013 CBC 4680305 WBC 5.7 10e9/L 07/24/2013 CBC 9595973 RBC 4.39 10e12/L 07/24/2013 CBC 7379900 HGB 13.6 g/dL 07/24/2013 CBC 1377854 HCT DET 41.7 % 07/24/2013 CBC 4695641 MCV 95.0 fL 07/24/2013 CBC 9437645 MCH 31.0 pg 07/24/2013 CBC 7841924 MCHC 32.6 g/dL 07/24/2013 CBC 9896715 PLT 341 10e9/L 07/24/2013 CBC 6793885 MPV 9.7 fL 07/24/2013 CBC 8188022 RORO % 37.9 % 07/24/2013 CBC 7067733 LY % 38.1 % 07/24/2013 CBC 7966527 MON % 12.0 % 07/24/2013 CBC 1838440 EOS % 9.9 % 07/24/2013 CBC 8555242 BASO % 2.1 % 07/24/2013 CBC 8731771 RDW 14.1 % 07/24/2013 CBC 1844173 ABS RORO 2.16 10e9/L 07/24/2013 CBC 5835921 ABS LYMPH 2.17 10e9/L 07/24/2013 CBC 9797542 ABS MONO 0.68 10e9/L 07/24/2013 CBC 1718965 ABS EOS 0.56 10e9/L 07/24/2013 CBC 9064011 ABS BASO 0.12 10e9/L 07/24/2013 CBC 0481915 RDW-SD 47.2 fL 07/24/2013 FREE T4 5973516 FREE T4 0.97 NG/DL 03/14/2013 TSH 2446540 TSH 6.175 uIU/ML 03/13/2013 LIPID GRP HDL TEST 51 MG/DL 03/13/2013 LIPID GRP TRIG 182 MG/DL 03/13/2013 LIPID GRP TEST LDL 191 MG/DL 03/13/2013 LIPID GRP CHOL 278 MG/DL 03/13/2013 LIPID GRP RCHOL/HDL 5.45 RATIO 03/13/2013 CHEM 14 1796115 AST 23 U/L 03/13/2013 CHEM 14 1735876 ALT 18 IU/L 03/13/2013 CHEM 14 0564121 BUN 21 MG/DL 03/13/2013 CHEM 14 9733001 ALBUMIN 4.1 GM/DL 03/13/2013 CHEM 14 5979919 CHLORIDE 107 MMOL/L 03/13/2013 CHEM 14 1500451 BILI TOT 0.4 MG/DL 03/13/2013 CHEM 14 2911809 ALK PHOS 57 U/L 03/13/2013 CHEM 14 4223288 SODIUM 140 MMOL/L 03/13/2013 CHEM 14 0057134 CREATININE 0.94 MG/DL 03/13/2013 CHEM 14 0464038 CALCIUM 9.8 MG/DL 03/13/2013 CHEM 14 3927004 POTASSIUM 4.4 MMOL/L 03/13/2013 CHEM 14 4249134 PROT TOT 6.1 GM/DL 03/13/2013 CHEM 14 5393982 GLUCOSE 90 MG/DL 03/13/2013 CHEM 14 9897591 BICARB 27 MMOL/L 03/13/2013 CHEM 14 3888181 ANION GAP 6 MEQ/L 03/13/2013 GFR CALC 5606065 GFR AA >60 ML/MIN 03/13/2013 GFR CALC 0312611 GFR NON-AA 57.0L ML/MIN 03/13/2013 CBC 6745673 WBC 4.9 10e9/L 07/02/2012 CBC 4373202 RBC 4.20 10e12/L 07/02/2012 CBC 1012377 HGB 13.3 g/dL 07/02/2012 CBC 4417178 HCT DET 40.2 % 07/02/2012 CBC 9871850 MCV 95.7 fL 07/02/2012 CBC 1446058 MCH 31.7 pg 07/02/2012 CBC 9480617 MCHC 33.1 g/dL 07/02/2012 CBC 1369900 PLT 317 10e9/L 07/02/2012 CBC 0133149 MPV 10.3 fL 07/02/2012 CBC 7650861 RORO % 40.1 % 07/02/2012 CBC 9612419 LY % 42.8 % 07/02/2012 CBC 7185151 MON % 12.0 % 07/02/2012 CBC 6210609 EOS % 4.3 % 07/02/2012 CBC 8068605 BASO % 0.8 % 07/02/2012 CBC 1590387 RDW 13.9 % 07/02/2012 CBC 6638309 ABS RORO 1.96 10e9/L 07/02/2012 CBC 4601639 ABS LYMPH 2.10 10e9/L 07/02/2012 CBC 4158980 ABS MONO 0.59 10e9/L 07/02/2012 CBC 8991568 ABS EOS 0.21 10e9/L 07/02/2012 CBC 5806387 ABS BASO 0.04 10e9/L 07/02/2012 CBC 0792579 RDW-SD 47.3 fL 07/02/2012 CHEM 14 7496962 AST 23 U/L 07/02/2012 CHEM 14 4466237 ALT 20 IU/L 07/02/2012 CHEM 14 7925573 BUN 14 MG/DL 07/02/2012 CHEM 14 7561282 ALBUMIN 3.8 GM/DL 07/02/2012 CHEM 14 4506154 CHLORIDE 108 MMOL/L 07/02/2012 CHEM 14 6490739 BILI TOT 0.4 MG/DL 07/02/2012 CHEM 14 7523616 ALK PHOS 66 U/L 07/02/2012 CHEM 14 4486680 SODIUM 143 MMOL/L 07/02/2012 CHEM 14 5107990 CREATININE 0.88 MG/DL 07/02/2012 CHEM 14 9125866 CALCIUM 9.7 MG/DL 07/02/2012 CHEM 14 4984288 POTASSIUM 4.6 MMOL/L 07/02/2012 CHEM 14 7147200 PROT TOT 6.4 GM/DL 07/02/2012 CHEM 14 2219082 GLUCOSE 87 MG/DL 07/02/2012 CHEM 14 2023927 BICARB 28 MMOL/L 07/02/2012 CHEM 14 9713464 ANION GAP 7 MEQ/L 07/02/2012 GFR CALC 2170454 GFR AA >60 ML/MIN 07/02/2012 GFR CALC 7675951 GFR NON-AA >60 ML/MIN 07/02/2012 FREE T4 8194866 FREE T4 1.10 NG/DL 07/02/2012 TSH 8774488 TSH 2.909 uIU/ML 07/02/2012 LIPID GRP HDL TEST 54 MG/DL 07/02/2012 LIPID GRP TRIG 102 MG/DL 07/02/2012 LIPID GRP TEST LDL 109 MG/DL 07/02/2012 LIPID GRP CHOL 183 MG/DL 07/02/2012 LIPID GRP RCHOL/HDL 3.39 RATIO 07/02/2012 URINALYSIS NONAUTO W/O SCOPE 46380 Specific [place] 1.005 DateTime(Free Text in Aprima) URINALYSIS NONAUTO W/O SCOPE 66499 PH 5.0 DateTime(Free Text in Aprima) URINALYSIS NONAUTO W/O SCOPE 29892 GLUCOSE NEG DateTime(Free Text in Aprima) URINALYSIS NONAUTO W/O SCOPE 07539 Protein NEG DateTime(Free Text in Aprima) URINALYSIS NONAUTO W/O SCOPE 54542 Blood NEG DateTime(Free Text in Aprima) URINALYSIS NONAUTO W/O SCOPE 12393 Bilirubin NEG DateTime(Free Text in Aprima) URINALYSIS NONAUTO W/O SCOPE 58763 Ketones NEG DateTime(Free Text in Aprima) URINALYSIS NONAUTO W/O SCOPE 69118 Urobilinogen NEG DateTime(Free Text in Aprima) URINALYSIS NONAUTO W/O SCOPE 48789 Nitrite NEG DateTime(Free Text in Aprima) URINALYSIS NONAUTO W/O SCOPE 21161 Leukocytes NEG DateTime(Free Text in Aprima) Review [...] dentition 09/19/2017 None Full Exam - General 1995 [...] INJ NOS CPT-4: J3301 02/03/2017 PAP CPT-4: 4231895 10/17/2016 ROUTINE VENIPUNCTURE CPT- 4: 09025 07/24/2013 ROUTINE VENIPUNCTURE CPT- 4: 97192 03/13/2013 PRESCRIP TRANSMIT VIA ERX SY CPT-4: G8553 10/25/2012 ROUTINE VENIPUNCTURE CPT- 4: 76808 07/02/2012 PRESCRIP TRANSMIT VIA ERX SY CPT-4: G8553 12/26/2011 ROUTINE VENIPUNCTURE CPT- 4: 05348 10/20/2011 URINALYSIS NONAUTO W/O SCOPE CPT-4: 84952 09/15/2011 PRESCRIP TRANSMIT VIA ERX SY CPT-4: G8553 09/15/2011 ROUTINE VENIPUNCTURE CPT- 4: 34066 06/07/2011 PRESCRIP TRANSMIT VIA ERX SY CPT-4: G8553 04/27/2011 Vital Signs Date Vital 06/14/2018 Blood Pressure 1: 142/76 Code: 8480-6 BMI: 33.0 Code: 70992-1 Heart Rate 1: 72 bpm Height: 5'4" SpO2: 97% Waist Measure (cm): 107 cm Weight: 195 lbs 09/19/2017 Blood Pressure 1: 148/70 Code: 8480-6 BMI: 33.3 Code: 63084-6 Heart Rate 1: 82 bpm Height: 5'4" SpO2: 98% Weight: 197 lbs 07/21/2017 Blood Pressure 1: 160/62 Code: 8480-6 Blood Pressure 1: 144/68 Code: 8480-6 BMI: 33.3 Code: 98964-4 Heart Rate 1: 75 bpm Height: 5'4" SpO2: 98% Weight: 197 lbs 02/06/2017 Blood Pressure 1: 142/84 Code: 8480-6 BMI: 32.1 Code: 77611-7 Heart Rate 1: 76 bpm Height: 5'4" SpO2: 96% Weight: 190 lbs 02/03/2017 Blood Pressure 1: 142/84 Code: 8480-6 BMI: 32.2 Code: 13844-4 Heart Rate 1: 76 bpm Height: 5'4" SpO2: 96% Weight: 190 lbs 8 oz 10/17/2016 Blood Pressure 1: 136/90 Code: 8480-6 BMI: 31.6 Code: 76710-4 Heart Rate 1: 76 bpm Height: 5'4" SpO2: 98% Weight: 187 lbs 07/14/2015 Blood Pressure 1: 150/80 Code: 8480-6 BMI: 31.1 Code: 32652-5 Heart Rate 1: 74 bpm Height: 5'4" SpO2: 95% Weight: 184 lbs 11/17/2014 Blood Pressure 1: 142/88 Code: 8480-6 BMI: 32.3 Code: 42362-1 Heart Rate 1: 72 bpm Height: 5'4" Weight: 191 lbs 05/19/2014 Blood Pressure 1: 136/74 Code: 8480-6 BMI: 32.8 Code: 18993-7 Heart Rate 1: 72 bpm Height: 5'4" Weight: 194 lbs 11/04/2013 Blood Pressure 1: 154/76 Code: 8480-6 BMI: 31.4 Code: 05167-7 Heart Rate 1: 76 bpm Height: 5'4" Weight: 186 lbs 08/05/2013 Blood Pressure 1: 150/78 Code: 8480-6 BMI: 30.9 Code: 11033-9 Heart Rate 1: 60 bpm Height: 5'4" Weight: 183 lbs 05/22/2013 Blood Pressure 1: 156/76 Code: 8480-6 BMI: 31.8 Code: 04428-3 Heart Rate 1: 72 bpm Height: 5'4" Weight: 188 lbs 02/20/2013 Blood Pressure 1: 138/78 Code: 8480-6 BMI: 32.1 Code: 85535-4 Heart Rate 1: 72 bpm Height: 5'4" Weight: 190 lbs 10/25/2012 Blood Pressure 1: 138/82 Code: 8480-6 BMI: 31.8 Code: 59136-8 Heart Rate 1: 72 bpm Height: 5'4" Weight: 188 lbs 07/04/2012 Blood Pressure 1: 136/70 Code: 8480-6 Heart Rate 1: 72 bpm Weight: 187 lbs 12/26/2011 Blood Pressure 1: 152/82 Code: 8480-6 BMI: 30.4 Code: 86136-9 Heart Rate 1: 78 bpm Height: 5'4" Respiratory Rate: 16 bpm Weight: 180 lbs 10/26/2011 Blood Pressure 1: 140/64 Code: 8480-6 Heart Rate 1: 64 bpm Weight: 181 lbs 8 oz 09/15/2011 Blood Pressure 1: 152/82 Code: 8480-6 BMI: 30.8 Code: 59237-6 Heart Rate 1: 60 bpm Height: 5'4" Temperature: 36.8 (C) / 98.3 (F) Weight: 182 lbs 06/07/2011 Blood Pressure 1: 154/80 Code: 8480-6 05/10/2011 Blood Pressure 1: 122/66 Code: 8480-6 BMI: 30.7 Code: 38225-3 Heart Rate 1: 66 bpm Height: 5'4" Respiratory Rate: 12 bpm Weight: 181 lbs 8 oz 04/27/2011 Blood Pressure 1: 136/70 Code: 8480-6 BMI: 30.6 Code: 20390-4 Heart Rate 1: 72 bpm Height: 5'4" [...] Directive data Encounters Encounter Performer Location Codes EST. PATIENT, LEVEL IV Diagnosis: Low back pain[ICD10: M54.5] [facility] CPT-4: 78282 09/19/2017 ([id number]) 08461 EST. PATIENT, LEVEL III Diagnosis: Essential (primary) hypertension[ICD10: I10] Diagnosis: Epigastric pain[ICD10: R10.13] [facility] CPT-4: 25560 07/21/2017 [id number]) 59352 EST. PATIENT, LEVEL III Diagnosis: Low back pain[ICD10: M54.5] [facility] CPT-4: 29675 02/03/2017 ([id number]) 38620 EST. PATIENT, LEVEL IV Diagnosis: Encounter for gynecological examination (general) (routine) without abnormal findings[ICD10: Z01.419] Tori Abdalla MD [facility] CPT-4: 97539 10/17/2016 53067 EST. PATIENT, LEVEL III Diagnosis: Low back pain[ICD10: M54.5] Katie Abdalla MD [facility] CPT-4: 26013 07/14/2015 ([id number]) 22310 EST. PATIENT, LEVEL III Diagnosis: ESSENTIAL HYPERTENSION[ICD9: 401.9] Marcela Abdalla MD [facility] CPT- 4: 47875 11/17/2014 ([id number]) 69251 EST. PATIENT, LEVEL III Diagnosis: ESSENTIAL HYPERTENSION[ICD9: 401.9] Diagnosis: HYPERLIPIDEMIA[ICD9: 272.4] Diagnosis: HYPOTHYROIDISM[ICD9: 244.9] Marcela Abdalla MD [facility] CPT-4: 44600 05/19/2014 ([id number]) 26401 EST. PATIENT, LEVEL IV Diagnosis: HYPOTHYROIDISM[ICD9: 244.9] Diagnosis: ESSENTIAL HYPERTENSION[SNOMED: 58401383] Marcela Abdalla MD [facility] CPT-4: 62417 11/04/2013 ([id number]) 78324 EST. PATIENT, LEVEL III Diagnosis: ESSENTIAL HYPERTENSION[SNOMED: 58275940] Marcela Abdalla MD [facility] CPT-4: 78752 08/05/2013 ([id number]) 12760 EST. PATIENT, LEVEL III Diagnosis: ESSENTIAL HYPERTENSION[SNOMED: 64558878] Marcela Abdalla MD [facility] CPT-4: 96840 05/22/2013 ([id number]) 76092 EST. PATIENT, LEVEL III Diagnosis: ESSENTIAL HYPERTENSION[SNOMED: 95344712] Marcela Abdalla MD [facility] CPT-4: 62622 02/20/2013 ([id number]) 29144 EST. PATIENT, LEVEL IV Diagnosis: ESSENTIAL HYPERTENSION[SNOMED: 27140757] Diagnosis: HYPERLIPIDEMIA[ICD9: 272.4] Diagnosis: NONSPECIF SKIN ERUPT NEC[ICD9: 782.1] Marcela Abdalla MD, [facility] CPT-4: 69673 10/25/2012 [id number] 48332 EST. PATIENT, LEVEL IV Diagnosis: ESSENTIAL HYPERTENSION[SNOMED: 54253226] Diagnosis: HYPERLIPIDEMIA[ICD9: 272.4] Marcela Abdalla MD [facility] CPT-4: 12308 07/04/2012 ([id number]) 94461 EST. PATIENT, LEVEL IV Diagnosis: ESSENTIAL HYPERTENSION[SNOMED: 69592998] Diagnosis: HYPERLIPIDEMIA[ICD9: 272.4] Marcela Abdalla MD, [facility] CPT-4: 34893 12/26/2011 ([id number]) 23026 EST. PATIENT, LEVEL IV Diagnosis: ESSENTIAL HYPERTENSION[SNOMED: 98316873] Diagnosis: HYPERLIPIDEMIA[ICD9: 272.4] Marcela Abdalla MD, [facility] CPT-4: 59701 10/26/2011 ([id number]) 15870 EST. PATIENT, LEVEL IV Diagnosis: BPPV (benign paroxysmal positional vertigo)[ICD9: 386.11] Diagnosis: ESSENTIAL HYPERTENSION[SNOMED: 40102091] Tori Abdalla MD, [facility] CPT-4: 39674 09/15/2011 21701 EST. PATIENT, LEVEL III Diagnosis: Lesion of oral mucosa[ICD9: 528.9] Diagnosis: Rash and nonspecific skin eruption[ICD9: 782.1] Marcela Abdalla MD, [facility] CPT-4: 83424 05/10/2011 [id number] EST. PATIENT, LEVEL IV Diagnosis: ESSENTIAL HYPERTENSION[SNOMED: 54226473] Diagnosis: Mouth sores[ICD9: 528.9] Marcela Abdalla MD, [facility] CPT-4: 62680 04/27/2011 Plan of Care Planned Activity Notes [...] 06/14/2018 Care Plan: Referral Order SNOMED-CT : [id number] Pending 06/14/2018 [facility] [phone] [phone] [facility] - [facility] Wellness [facility] 02/12/2018 Visit [...] not improve. 09/19/2017 Appointment: [facility] (30 min) Complex 09/19/2017 Patient Education: [...] is to call for acute concerns. Epigastric riss-unzyyxrv-clple prilosec daily-monitor symptoms and call if abdominal pain does not improve or if any worse 07/21/2017 Appointment: Tori Duvall [phone] [facility] [place] [address] (30 min) Complex 07/21/2017 Patient Education: Patient [...] surrogate. 02/06/2017 Appointment: [phone] [facility] [facility] - Annual Wellness Visit 02/06/2017 Patient [...] the office. 02/03/2017 Appointment: Tori Duvall WPtel: [phone] (30 min) Complex 02/03/2017 Patient Education: Patient [...] Recommend mammogram 10/17/2016 Appointment: Tori Duvall WPtel: [phone] [facility] 10/17/2016 Patient Education: Patient Medication [...] at home. 11/17/2014 Appointment: Marcela Abdalla WPtel: [facility] [address] Follow up 11/17/2014 Patient Education: Patient Medication [...] home. 05/19/2014 Appointment: Marcela Abdalla WPtel: [phone] [facility] [address] Follow up 05/19/2014 Patient Education: Patient Medication [...] WPtel: [address] [facility] [address] Follow up 11/04/2013 Patient Education: Patient Medication [...] WPtel: [address] [facility] [address] Follow up 08/05/2013 Patient Education: Patient Medication [...] home. 05/22/2013 [facility]ment[phone] [facility] 05/22/2013 Patient Education: Patient [...] home. 02/20/2013 [facility]ment: [phone] [facility] 02/20/2013 Patient Education: Patient [...] continuous basis 10/25/2012 App[facility]ment: [phone] [facility] 10/25/2012 Patient Education: Patient [...] medications. 07/04/2012 Appointment: Marcela Abdalla WPtel: [phone] [facility] [address] Established Patient Preventative visit 07/04/2012 Patient Education: Patient Medication Summary Completed 07/04/2012 Patient Education: 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 Completed 07/04/2012 Appointment: Marcela Abdalla WPtel: [phone] [facility] [address] Lab Draw 07/02/2012 Patient Education: Patient Medication [...] to medications. 12/26/2011 Appointment: Marcela Abdalla WPtel: [phone] [facility] [address] [facility] 12/26/2011 Patient Education: Patient Medication Summary Completed [...] to medications. 10/26/2011 Appointment: Marcela Abdalla [facility]: [facility] [id number] [place] Other 10/26/2011 Patient Education: Patient Medication Summary Completed 10/26/2011 Patient Education: High Blood Pressure: Essential 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 Completed 10/26/2011 Appointment: Marcela Abdalla [facility]el[phone] [id number] [place] Lab Draw 10/20/2011 Patient Education: [...] changes. 09/15/2011 Appointment: Tori Duvall WPtel: [phone] [id number] Lab Draw 09/15/2011 Patient Education: Patient Medication Summary Completed 09/15/2011 Patient Education: .Amazing charts Paroxysmal positional vertigo Completed 09/15/2011 Patient Education: High Blood Pressure: Essential 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 Completed 09/15/2011 Appointment: Marcela Abdalla WPtel: [address] [place], [place] [phone] Lab Draw 06/07/2011 Patient Education: Patient Medication [...] the rash. 05/10/2011 Appointment: Marcela Abdalla WPtel: [address] [place], [place] [phone] Other 05/10/2011 Patient Education: Patient Medication Summary Completed 05/10/2011 Appointment: Marcela Abdalla WPtel: [address] [place], [place] [phone] Follow up 05/04/2011 Visit Plan: HTN- improved from high blood pressure earlier this week No change in current medication. Try to avoid high salt containing foods. 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 to call about a deep tissue massage RETURN TO CLINIC NEXT WEEK FOR DR TO TAKE A QUICK LOOK AT YOUR MOUTH 04/27/2011 Appointment: Marcela Abdalla WPtel: [facility] [address] Other 04/27/2011 Patient Education: Patient Medication Summary Completed 04/27/2011 Referral: Seth Thorne WPtel: [place] [id number] [facility] [place] [address] [id number] [place] Referral Relationship Referral: Marcelino Rojo WPtel: Referral Appointment Requested Instructions Comment RECOMMEND MAMMMOGRAM, FASTING LABS AND PNEUMONIA/FLU VACCINES [...] is to call for acute concerns. Epigastric [id number] prilosec daily-monitor symptoms and call if abdominal [...]
--- OUTSIDE RECORDS SUMMARY | 2019-01-10 12:47 | XMS REPORT | CCD ---
Author Author [facility] Organization [facility] Address [address] [place] [address] Phone Care Team Providers Care Deck Officer Name Role Phone PP Unavailable CCM Unavailable Summary Purpose Interface Exchange Insurance Providers Payer name Policy type / Coverage type Covered republican ID Effective Begin Date Effective End Date WPS Medicare Part B Medicare Part B [id number] Unknown Unknown [facility]UR Medicare Part B [id number] Unknown Unknown Family history Daughter Diagnosis Age [...] Unknown 04/27/2011 Number of children Unknown 4 [id number] 04/27/2011 Employment Unknown Retired 04/27/[address]: 536234579 Never smoker 04/27/[address]: 931040197 Never drinks alcohol 04/27/2011 Has the patient [...] Fill Instructions lisinopril 10 mg tablet RxNorm: 119518 TAKE ONE TABLET BY MOUTH ONCE DAILY IN THE EVENING 08/08/2018 No Stop Date Active prednisone 20 mg tablet RxNorm: 757305 2 Tablet(s) PO daily 09/19/2017 09/23/2017 Inactive lisinopril 10 mg tablet RxNorm: 923415 1 Tablet(s) PO QPM 07/21/2017 01/16/2018 Inactive Kenalog 40 mg/mL suspension for injection RxNorm: 4385308 1 Milliliter(s) Inj 02/03/2017 02/03/2017 Inactive Zocor 10 mg tablet RxNorm: 681003 1 Tablet(s) PO daily 05/14/2015 05/13/2015 Inactive Zocor 10 mg tablet RxNorm: 054908 1 Tablet(s) PO daily 05/14/2015 05/06/2016 Inactive Zocor 10 mg tablet RxNorm: 302925 1 Tablet(s) PO daily 05/14/2015 05/07/2016 Inactive ntrfvhgw-wtwysvqtn-zeiztazxf 3.5 mg/g-10,000 unit/g-0.5 %topical cream RxNorm: 0802435 3 gtts TOP TID 11/17/2014 11/26/2014 Inactive [SAVINGS FOR NON-COVERED DRUGS -- BIN:[id number], PCN: [id number], Group: XXXXX, ID# [id number], Questions: . THIS IS NOT INSURANCE.] simvastatin 40 mg tablet RxNorm: 463605 1/2 Tablet(s) PO QHS 10/09/2013 11/03/2013 Inactive Synthroid 25 mcg tablet RxNorm: 655713 1 Tablet(s) PO daily 08/19/2013 11/11/2014 Inactive clobetasol 0.05 % Topical Cream RxNorm: 887703 1 Application TOP TID PRN 04/05/2013 07/03/2013 Inactive nystatin 100,000 unit/gram Topical Powder RxNorm: 239760 Gram(s) TOP apply to affected area as needed 03/22/2013 10/16/2016 Inactive fluconazole 150 mg tablet RxNorm: 809319 1 Tablet(s) PO 03/19/2013 03/18/2013 Inactive take one at outbreak and then use nystatin powder (she has nystatin at home) fluconazole 150 mg tablet RxNorm: 979976 1 Tablet(s) PO 03/19/2013 03/25/2013 Inactive take one at outbreak and then use nystatin powder (she has nystatin at home) simvastatin 40 mg tablet RxNorm: 159887 1/2 Tablet(s) PO QHS 03/18/2013 07/15/2013 Inactive Synthroid 25 mcg tablet RxNorm: 750670 1 Tablet(s) PO daily 03/18/2013 08/14/2013 Inactive clobetasol 0.05 % Topical Cream RxNorm: 362999 1 Application TOP TID PRN 10/25/2012 01/22/2013 Inactive Coreg 3.125 mg tablet RxNorm: 033717 1 Tablet(s) PO BID 04/17/2012 07/03/2012 Inactive Coreg 3.125 mg tablet RxNorm: 684430 1 Tablet(s) PO BID 03/16/2012 04/14/2012 Inactive Diflucan 150 mg Tab RxNorm: 145890 1 Tablet(s) PO daily 12/26/2011 01/22/2012 Inactive simvastatin 40 mg tablet RxNorm: 806168 1/2 Tablet(s) PO QHS 04/27/2011 03/17/2013 Inactive Vitamin C Oral RxNorm: Oral No Start Date 10/16/2016 Inactive Synthroid 25 mcg tablet RxNorm: 518578 Tablet(s) PO No Start Date 03/17/2013 Inactive coenzyme Q10 75 mg Cap RxNorm: 322264 1 Capsule(s) PO daily No Start Date 10/16/2016 Inactive Coreg 3.125 mg tablet RxNorm: 976379 1 Tablet(s) PO BID No Start Date 03/15/2012 Inactive simvastatin 40 mg Tab RxNorm: 445856 1 Tablet(s) PO QHS No Start Date 04/26/2011 Inactive aspirin 81 mg capsule,delayed release RxNorm: 928064 1 Capsule(s) PO daily No Start Date 10/16/2016 Inactive metoprolol succinate ER 50 mg tablet,extended release 24 hr RxNorm: 141169 1 Tablet(s) PO daily No Start Date 10/16/2016 Inactive lisinopril 20 mg tablet RxNorm: 467851 1 Tablet(s) PO as needed No Start Date 07/20/2017 Inactive Bystolic 5 mg Tab RxNorm: 851704 1 Tablet(s) PO daily No Start Date 10/30/2011 Inactive clobetasol 0.05 % Topical Cream RxNorm: 820198 TOP No Start Date 10/24/2012 Inactive omega-3 fatty acids 1,250 mg Cap RxNorm: 9742904 1 Capsule(s) PO daily No Start Date 10/16/2016 Inactive coenzyme Q10 oral RxNorm: 35453 oral No Start Date 06/13/2018 Inactive meclizine 12.5 mg Tab RxNorm: 063314 1/2-1 Tablet(s) PO Q6 PRN No Start Date 05/18/2014 Inactive promethazine 25 mg Rectal Suppository RxNorm: 474646 1 Suppository RTL Q6 PRN No Start Date 07/03/2012 Inactive nystatin 100,000 unit/gram Topical Powder RxNorm: 692020 Gram(s) TOP apply to affected area as needed No Start Date 03/21/2013 Inactive Medication Administered Medication Codes Instructions Start Date Status Kenalog 40 mg/mL suspension for injection RxNorm: 8106744 1Milliliter 02/03/2017 No longer Active Immunizations Vaccine [...] Observation Code Item Item Code Result Date Cbc With Differential Ord2 WBC 4.60 K/ul [...] 31.5 pg 06/18/2018 Cbc With Differential Ord2 [place]% 13.3 % 06/18/2018 Cbc With Differential Ord2 [...] 1.82 K/ul 06/18/2018 Cbc With Differential Ord2 [place] ABS# 0.6 K/ul 06/18/2018 Cbc With Differential Ord2 Eos ABS# 0.2 K/ul 06/18/2018 Cbc With Differential Ord2 Baso ABS# 0.1 K/ul 06/18/2018 Lipid Ord30 CHOL 259 mg/dL 06/18/2018 Lipid Ord30 HDL 59.0 mg/dl 06/18/2018 Lipid Ord30 TRIG 115 mg/dL 06/18/2018 Lipid Ord30 LDL 177 mg/dL 06/18/2018 Lipid Ord30 C/HDL 4.4 Ratio 06/18/2018 Tsh Ord6 TSH (3rd IS) 2.11 uIU/mL 06/18/2018 Comp Metabolic Fmo084 NA 141 mEq/L 06/18/2018 Comp Metabolic Ewq055 K 4.7 mEq/L 06/18/2018 Comp Metabolic Rrr966 CL 106 mEq/L 06/18/2018 Comp Metabolic Uzt815 CO2 28.0 mEq/L 06/18/2018 Comp Metabolic Jsd845 ANION GAP 12 06/18/2018 Comp Metabolic Rei922 GLUCOSE 85 mg/dL 06/18/2018 Comp Metabolic Log915 Creat 0.8 mg/dL 06/18/2018 Comp Metabolic Nnf835 eGFR 71 ml/min/1.73m2 06/18/2018 Comp Metabolic Qtu044 BUN 18 mg/dL 06/18/2018 Comp Metabolic Usu219 B/C Ratio 22.2 Ratio 06/18/2018 Comp Metabolic Qhu273 CALCIUM 9.4 mg/dL 06/18/2018 Comp Metabolic Gcu587 ALK PHOS 69 U/L 06/18/2018 Comp Metabolic Zac679 AST(SGOT) 22 U/L 06/18/2018 Comp Metabolic Uvd425 ALT(SGPT) 16 U/L 06/18/2018 Comp Metabolic Qgq148 BILI T 0.5 mg/dL 06/18/2018 Comp Metabolic Yry081 ALBUMIN 3.9 g/dL 06/18/2018 Comp Metabolic Elm447 TPRO 6.5 g/dL 06/18/2018 Comp Metabolic Pjj370 GLOB 2.6 g/dL 06/18/2018 Comp Metabolic Edk817 A/G Ratio 1.5 Ratio 06/18/2018 Comp Metabolic Gku884 Osmo 282 mOsmo 06/18/2018 Lipid Ord30 CHOL [...] 95.2 fl 10/28/2016 Cbc With Differential Ord2 [place]% 11.9 % 10/28/2016 Cbc With Differential Ord2 [...] 2.07 K/ul 10/28/2016 Cbc With Differential Ord2 [place] ABS# 0.6 K/ul 10/28/2016 Cbc With Differential Ord2 Eos ABS# 0.2 K/ul 10/28/2016 Cbc With Differential Ord2 Baso ABS# 0.1 K/ul 10/28/2016 Tsh Ord6 hTSH II 2.77 uIU/mL 10/28/2016 Comp Metabolic Xjy312 NA 138 mEq/L 10/28/2016 Comp Metabolic Pwp258 K 4.6 mEq/L 10/28/2016 Comp Metabolic Vsc631 CL 104 mEq/L 10/28/2016 Comp Metabolic Gks179 CO2 29.0 mEq/L 10/28/2016 Comp Metabolic Vhv435 ANION GAP 10 10/28/2016 Comp Metabolic Bqq569 GLUCOSE 88 mg/dL 10/28/2016 Comp Metabolic Wrb019 Creat 0.9 mg/dL 10/28/2016 Comp Metabolic Yix081 eGFR 60 ml/min/1.73m2 10/28/2016 Comp Metabolic Dht880 BUN 27 mg/dL 10/28/2016 Comp Metabolic Dlq563 B/C Ratio 28.7 Ratio 10/28/2016 Comp Metabolic Txr157 CALCIUM 9.7 mg/dL 10/28/2016 Comp Metabolic Oer064 ALK PHOS 58 U/L 10/28/2016 Comp Metabolic Bhp153 AST(SGOT) 20 U/L 10/28/2016 Comp Metabolic Qkl980 ALT(SGPT) 14 U/L 10/28/2016 Comp Metabolic Lfj937 BILI T 0.6 mg/dL 10/28/2016 Comp Metabolic Asi776 ALBUMIN 3.6 g/dL 10/28/2016 Comp Metabolic Wgc434 TPRO 6.3 g/dL 10/28/2016 Comp Metabolic Mwx851 GLOB 2.7 g/dL 10/28/2016 Comp Metabolic Qnh371 A/G Ratio 1.3 Ratio 10/28/2016 Comp Metabolic Fqy033 Osmo 280 mOsmo 10/28/2016 LIPID GRP HDL TEST 60 MG/DL 05/13/2015 LIPID GRP TRIG 100 MG/DL 05/13/2015 LIPID GRP TEST LDL 190 MG/DL 05/13/2015 LIPID GRP CHOL 270 MG/DL 05/13/2015 LIPID GRP RCHOL/HDL 4.50 RATIO 05/13/2015 LIPID GRP NON-HDL CH 210 MG/DL 05/13/2015 LIVER PNL 5836571 AST 29 U/L 05/13/2015 LIVER PNL 6746217 ALK PHOS 70 U/L 05/13/2015 LIVER PNL 7872898 BILI TOT 0.5 MG/DL 05/13/2015 LIVER PNL 6025444 ALT 27 IU/L 05/13/2015 LIVER PNL 3665094 BILI DIR 0.1 MG/DL 05/13/2015 LIVER PNL 2873828 ALBUMIN 3.8 GM/DL 05/13/2015 LIVER PNL 9059102 PROT TOT 7.3 GM/DL 05/13/2015 TSH 2931081 TSH 3.354 uIU/ML 07/24/2013 LIPID GRP HDL TEST 46 MG/DL 07/24/2013 LIPID GRP TRIG 86 MG/DL 07/24/2013 LIPID GRP TEST LDL 113 MG/DL 07/24/2013 LIPID GRP CHOL 176 MG/DL 07/24/2013 LIPID GRP RCHOL/HDL 3.83 RATIO 07/24/2013 CHEM 14 8102452 AST 25 U/L 07/24/2013 CHEM 14 9928114 ALT 20 IU/L 07/24/2013 CHEM 14 0960273 BUN 18 MG/DL 07/24/2013 CHEM 14 6869214 ALBUMIN 4.0 GM/DL 07/24/2013 CHEM 14 1480383 CHLORIDE 105 MMOL/L 07/24/2013 CHEM 14 2157302 BILI TOT 0.4 MG/DL 07/24/2013 CHEM 14 1725662 ALK PHOS 57 U/L 07/24/2013 CHEM 14 4291247 SODIUM 139 MMOL/L 07/24/2013 CHEM 14 0092286 CREATININE 0.83 MG/DL 07/24/2013 CHEM 14 9677157 CALCIUM 10.0 MG/DL 07/24/2013 CHEM 14 2777820 POTASSIUM 4.5 MMOL/L 07/24/2013 CHEM 14 0470544 PROT TOT 6.3 GM/DL 07/24/2013 CHEM 14 4564345 GLUCOSE 91 MG/DL 07/24/2013 CHEM 14 5502007 BICARB 28 MMOL/L 07/24/2013 CHEM 14 5738074 ANION GAP 6 MEQ/L 07/24/2013 FREE T4 4888213 FREE T4 1.17 NG/DL 07/24/2013 GFR CALC 1152588 GFR AA >60 ML/MIN 07/24/2013 GFR CALC 4412107 GFR NON-AA >60 ML/MIN 07/24/2013 CBC 4936467 WBC 5.7 10e9/L 07/24/2013 CBC 4288543 RBC 4.39 10e12/L 07/24/2013 CBC 0492408 HGB 13.6 g/dL 07/24/2013 CBC 5026619 HCT DET 41.7 % 07/24/2013 CBC 3377881 MCV 95.0 fL 07/24/2013 CBC 3391203 MCH 31.0 pg 07/24/2013 CBC 1718640 MCHC 32.6 g/dL 07/24/2013 CBC 9395834 PLT 341 10e9/L 07/24/2013 CBC 5276574 MPV 9.7 fL 07/24/2013 CBC 4462887 RORO % 37.9 % 07/24/2013 CBC 3039696 LY % 38.1 % 07/24/2013 CBC 6297916 MON % 12.0 % 07/24/2013 CBC 0525258 EOS % 9.9 % 07/24/2013 CBC 1189037 BASO % 2.1 % 07/24/2013 CBC 1435852 RDW 14.1 % 07/24/2013 CBC 0633912 ABS RORO 2.16 10e9/L 07/24/2013 CBC 1653114 ABS LYMPH 2.17 10e9/L 07/24/2013 CBC 8454074 ABS MONO 0.68 10e9/L 07/24/2013 CBC 8625371 ABS EOS 0.56 10e9/L 07/24/2013 CBC 4912262 ABS BASO 0.12 10e9/L 07/24/2013 CBC 9741738 RDW-SD 47.2 fL 07/24/2013 FREE T4 8652581 FREE T4 0.97 NG/DL 03/14/2013 TSH 3962648 TSH 6.175 uIU/ML 03/13/2013 LIPID GRP HDL TEST 51 MG/DL 03/13/2013 LIPID GRP TRIG 182 MG/DL 03/13/2013 LIPID GRP TEST LDL 191 MG/DL 03/13/2013 LIPID GRP CHOL 278 MG/DL 03/13/2013 LIPID GRP RCHOL/HDL 5.45 RATIO 03/13/2013 CHEM 14 2918107 AST 23 U/L 03/13/2013 CHEM 14 5873808 ALT 18 IU/L 03/13/2013 CHEM 14 6558437 BUN 21 MG/DL 03/13/2013 CHEM 14 1536926 ALBUMIN 4.1 GM/DL 03/13/2013 CHEM 14 8111268 CHLORIDE 107 MMOL/L 03/13/2013 CHEM 14 2996157 BILI TOT 0.4 MG/DL 03/13/2013 CHEM 14 2489686 ALK PHOS 57 U/L 03/13/2013 CHEM 14 6343363 SODIUM 140 MMOL/L 03/13/2013 CHEM 14 8903831 CREATININE 0.94 MG/DL 03/13/2013 CHEM 14 8828998 CALCIUM 9.8 MG/DL 03/13/2013 CHEM 14 7894444 POTASSIUM 4.4 MMOL/L 03/13/2013 CHEM 14 2650853 PROT TOT 6.1 GM/DL 03/13/2013 CHEM 14 5065345 GLUCOSE 90 MG/DL 03/13/2013 CHEM 14 8414359 BICARB 27 MMOL/L 03/13/2013 CHEM 14 1275623 ANION GAP 6 MEQ/L 03/13/2013 GFR CALC 5015871 GFR AA >60 ML/MIN 03/13/2013 GFR CALC 4376355 GFR NON-AA 57.0L ML/MIN 03/13/2013 CBC 7454581 WBC 4.9 10e9/L 07/02/2012 CBC 1542047 RBC 4.20 10e12/L 07/02/2012 CBC 2302209 HGB 13.3 g/dL 07/02/2012 CBC 6351030 HCT DET 40.2 % 07/02/2012 CBC 8175352 MCV 95.7 fL 07/02/2012 CBC 7961055 MCH 31.7 pg 07/02/2012 CBC 0846993 MCHC 33.1 g/dL 07/02/2012 CBC 9729935 PLT 317 10e9/L 07/02/2012 CBC 8079148 MPV 10.3 fL 07/02/2012 CBC 4570767 RORO % 40.1 % 07/02/2012 CBC 1141713 LY % 42.8 % 07/02/2012 CBC 9448493 MON % 12.0 % 07/02/2012 CBC 4952110 EOS % 4.3 % 07/02/2012 CBC 0233885 BASO % 0.8 % 07/02/2012 CBC 2435333 RDW 13.9 % 07/02/2012 CBC 3794296 ABS RORO 1.96 10e9/L 07/02/2012 CBC 5281638 ABS LYMPH 2.10 10e9/L 07/02/2012 CBC 1798144 ABS MONO 0.59 10e9/L 07/02/2012 CBC 3472664 ABS EOS 0.21 10e9/L 07/02/2012 CBC 6338154 ABS BASO 0.04 10e9/L 07/02/2012 CBC 6380122 RDW-SD 47.3 fL 07/02/2012 CHEM 14 9367981 AST 23 U/L 07/02/2012 CHEM 14 0284660 ALT 20 IU/L 07/02/2012 CHEM 14 2918168 BUN 14 MG/DL 07/02/2012 CHEM 14 8008077 ALBUMIN 3.8 GM/DL 07/02/2012 CHEM 14 2543648 CHLORIDE 108 MMOL/L 07/02/2012 CHEM 14 4949826 BILI TOT 0.4 MG/DL 07/02/2012 CHEM 14 6498168 ALK PHOS 66 U/L 07/02/2012 CHEM 14 5820869 SODIUM 143 MMOL/L 07/02/2012 CHEM 14 2024478 CREATININE 0.88 MG/DL 07/02/2012 CHEM 14 6427190 CALCIUM 9.7 MG/DL 07/02/2012 CHEM 14 8750278 POTASSIUM 4.6 MMOL/L 07/02/2012 CHEM 14 6215241 PROT TOT 6.4 GM/DL 07/02/2012 CHEM 14 4955033 GLUCOSE 87 MG/DL 07/02/2012 CHEM 14 0598780 BICARB 28 MMOL/L 07/02/2012 CHEM 14 6195721 ANION GAP 7 MEQ/L 07/02/2012 GFR CALC 4045491 GFR AA >60 ML/MIN 07/02/2012 GFR CALC 0948349 GFR NON-AA >60 ML/MIN 07/02/2012 FREE T4 0388181 FREE T4 1.10 NG/DL 07/02/2012 TSH 7094735 TSH 2.909 uIU/ML 07/02/2012 LIPID GRP HDL TEST 54 MG/DL 07/02/2012 LIPID GRP TRIG 102 MG/DL 07/02/2012 LIPID GRP TEST LDL 109 MG/DL 07/02/2012 LIPID GRP CHOL 183 MG/DL 07/02/2012 LIPID GRP RCHOL/HDL 3.39 RATIO 07/02/2012 URINALYSIS NONAUTO W/O SCOPE 34253 Specific [place] 1.005 DateTime(Free Text in Aprima) URINALYSIS NONAUTO W/O SCOPE 87071 PH 5.0 DateTime(Free Text in Aprima) URINALYSIS NONAUTO W/O SCOPE 09519 GLUCOSE NEG DateTime(Free Text in Aprima) URINALYSIS NONAUTO W/O SCOPE 84877 Protein NEG DateTime(Free Text in Aprima) URINALYSIS NONAUTO W/O SCOPE 20927 Blood NEG DateTime(Free Text in Aprima) URINALYSIS NONAUTO W/O SCOPE 79955 Bilirubin NEG DateTime(Free Text in Aprima) URINALYSIS NONAUTO W/O SCOPE 57366 Ketones NEG DateTime(Free Text in Aprima) URINALYSIS NONAUTO W/O SCOPE 04803 Urobilinogen NEG DateTime(Free Text in Aprima) URINALYSIS NONAUTO W/O SCOPE 96356 Nitrite NEG DateTime(Free Text in Aprima) URINALYSIS NONAUTO W/O SCOPE 04938 Leukocytes NEG DateTime(Free Text in Apr) Review [...] clear 06/14/2018 None Full Exam - General 1995 Eyes conjunctiva/eyelids Overall: eyelids normal 06/14/2018 None Full Exam - General 1995 Ears/Nose/Throat lips/teeth/gingiva Overall: benign lips 06/14/2018 None [...] clubbing 09/19/2017 None Full Exam - General 1995 [...] spine 09/19/2017 None Full Exam - General 1995 Musculoskeletal [...] gingiva 05/22/2013 None Full Exam - General 1994 Ears/Nose/Throat lips/teeth/gingiva Overall: no masses 05/22/2013 None [...] INJ NOS CPT-4: J3301 02/03/2017 PAP CPT-4: 1273511 10/17/2016 ROUTINE VENIPUNCTURE CPT- 4: 56253 07/24/2013 ROUTINE VENIPUNCTURE CPT- 4: 50077 03/13/2013 PRESCRIP TRANSMIT VIA ERX SY CPT-4: G8553 10/25/2012 ROUTINE VENIPUNCTURE CPT- 4: 92277 07/02/2012 PRESCRIP TRANSMIT VIA ERX SY CPT-4: G8553 12/26/2011 ROUTINE VENIPUNCTURE CPT- 4: 94592 10/20/2011 URINALYSIS NONAUTO W/O SCOPE CPT-4: 43878 09/15/2011 PRESCRIP TRANSMIT VIA ERX SY CPT-4: G8553 09/15/2011 ROUTINE VENIPUNCTURE CPT- 4: 80821 06/07/2011 PRESCRIP TRANSMIT VIA ERX SY CPT-4: G8553 04/27/2011 Vital Signs Date Vital 06/14/2018 Blood Pressure 1: 142/76 Code: 8480-6 BMI: 33.0 Code: 83737-6 Heart Rate 1: 72 bpm Height: 5'4" SpO2: 97% Waist Measure (cm): 107 cm Weight: 195 lbs 09/19/2017 Blood Pressure 1: 148/70 Code: 8480-6 BMI: 33.3 Code: 93153-3 Heart Rate 1: 82 bpm Height: 5'4" SpO2: 98% Weight: 197 lbs 07/21/2017 Blood Pressure 1: 160/62 Code: 8480-6 Blood Pressure 1: 144/68 Code: 8480-6 BMI: 33.3 Code: 09289-3 Heart Rate 1: 75 bpm Height: 5'4" SpO2: 98% Weight: 197 lbs 02/06/2017 Blood Pressure 1: 142/84 Code: 8480-6 BMI: 32.1 Code: 11885-9 Heart Rate 1: 76 bpm Height: 5'4" SpO2: 96% Weight: 190 lbs 02/03/2017 Blood Pressure 1: 142/84 Code: 8480-6 BMI: 32.2 Code: 86840-2 Heart Rate 1: 76 bpm Height: 5'4" SpO2: 96% Weight: 190 lbs 8 oz 10/17/2016 Blood Pressure 1: 136/90 Code: 8480-6 BMI: 31.6 Code: 51026-2 Heart Rate 1: 76 bpm Height: 5'4" SpO2: 98% Weight: 187 lbs 07/14/2015 Blood Pressure 1: 150/80 Code: 8480-6 BMI: 31.1 Code: 14505-7 Heart Rate 1: 74 bpm Height: 5'4" SpO2: 95% Weight: 184 lbs 11/17/2014 Blood Pressure 1: 142/88 Code: 8480-6 BMI: 32.3 Code: 99639-4 Heart Rate 1: 72 bpm Height: 5'4" Weight: 191 lbs 05/19/2014 Blood Pressure 1: 136/74 Code: 8480-6 BMI: 32.8 Code: 58254-2 Heart Rate 1: 72 bpm Height: 5'4" Weight: 194 lbs 11/04/2013 Blood Pressure 1: 154/76 Code: 8480-6 BMI: 31.4 Code: 98721-1 Heart Rate 1: 76 bpm Height: 5'4" Weight: 186 lbs 08/05/2013 Blood Pressure 1: 150/78 Code: 8480-6 BMI: 30.9 Code: 32104-6 Heart Rate 1: 60 bpm Height: 5'4" Weight: 183 lbs 05/22/2013 Blood Pressure 1: 156/76 Code: 8480-6 BMI: 31.8 Code: 78239-2 Heart Rate 1: 72 bpm Height: 5'4" Weight: 188 lbs 02/20/2013 Blood Pressure 1: 138/78 Code: 8480-6 BMI: 32.1 Code: 57313-4 Heart Rate 1: 72 bpm Height: 5'4" Weight: 190 lbs 10/25/2012 Blood Pressure 1: 138/82 Code: 8480-6 BMI: 31.8 Code: 36860-6 Heart Rate 1: 72 bpm Height: 5'4" Weight: 188 lbs 07/04/2012 Blood Pressure 1: 136/70 Code: 8480-6 Heart Rate 1: 72 bpm Weight: 187 lbs 12/26/2011 Blood Pressure 1: 152/82 Code: 8480-6 BMI: 30.4 Code: 02889-6 Heart Rate 1: 78 bpm Height: 5'4" Respiratory Rate: 16 bpm Weight: 180 lbs 10/26/2011 Blood Pressure 1: 140/64 Code: 8480-6 Heart Rate 1: 64 bpm Weight: 181 lbs 8 oz 09/15/2011 Blood Pressure 1: 152/82 Code: 8480-6 BMI: 30.8 Code: 13332-2 Heart Rate 1: 60 bpm Height: 5'4" Temperature: 36.8 (C) / 98.3 (F) Weight: 182 lbs 06/07/2011 Blood Pressure 1: 154/80 Code: 8480-6 05/10/2011 Blood Pressure 1: 122/66 Code: 8480-6 BMI: 30.7 Code: 57663-1 Heart Rate 1: 66 bpm Height: 5'4" Respiratory Rate: 12 bpm Weight: 181 lbs 8 oz 04/27/2011 Blood Pressure 1: 136/70 Code: 8480-6 BMI: 30.6 Code: 40056-5 Heart Rate 1: 72 bpm Height: 5'4" [...] data Encounters Encounter Performer Location Codes Date EST. PATIENT, LEVEL IV Diagnosis: Low back pain[ICD10: M54.5] Katie Abdalla MD, [facility] CPT-4: 16841 09/19/2017 ([id number]) 68926 EST. PATIENT, LEVEL III Diagnosis: Essential (primary) hypertension[ICD10: I10] Diagnosis: Epigastric pain[ICD10: R10.13] [facility] CPT-4: 37097 07/21/2017 ([id number]) 70311 EST. PATIENT, LEVEL III Diagnosis: Low back pain[ICD10: M54.5] [facility] CPT-4: 45056 02/03/2017 ([id number]) 36167 EST. PATIENT, LEVEL IV Diagnosis: Encounter for gynecological examination (general) (routine) without abnormal findings[ICD10: Z01.419] [facility] CPT-4: 18736 10/17/2016 28325 EST. PATIENT, LEVEL III Diagnosis: Low back pain[ICD10: M54.5] Katie Abdalla MD [facility] CPT-4: 30456 07/14/2015 ([id number]) 69052 EST. PATIENT, LEVEL III Diagnosis: ESSENTIAL HYPERTENSION[ICD9: 401.9] Marcela Abdalla MD [facility] CPT- 4: 99496 11/17/2014 ([id number]) 25442 EST. PATIENT, LEVEL III Diagnosis: ESSENTIAL HYPERTENSION[ICD9: 401.9] Diagnosis: HYPERLIPIDEMIA[ICD9: 272.4] Diagnosis: HYPOTHYROIDISM[ICD9: 244.9] Marcela Abdalla MD [facility] CPT-4: 59456 05/19/2014 ([id number]) 28628 EST. PATIENT, LEVEL IV Diagnosis: HYPOTHYROIDISM[ICD9: 244.9] Diagnosis: ESSENTIAL HYPERTENSION[SNOMED: 41939071] Marcela Abdalla MD [facility] CPT-4: 66897 11/04/2013 ([id number]) 93413 EST. PATIENT, LEVEL III Diagnosis: ESSENTIAL HYPERTENSION[SNOMED: 34897253] Marcela Abdalla MD [facility] CPT-4: 03296 08/05/2013 ([id number]) 67720 EST. PATIENT, LEVEL III Diagnosis: ESSENTIAL HYPERTENSION[SNOMED: 67458636] Marcela Abdalla MD [facility] CPT-4: 04964 05/22/2013 ([id number]) 34838 EST. PATIENT, LEVEL III Diagnosis: ESSENTIAL HYPERTENSION[SNOMED: 76358177] Marcela Abdalla MD [facility] CPT-4: 08655 02/20/2013 ([id number]) 41265 EST. PATIENT, LEVEL IV Diagnosis: ESSENTIAL HYPERTENSION[SNOMED: 84589904] Diagnosis: HYPERLIPIDEMIA[ICD9: 272.4] Diagnosis: NONSPECIF SKIN ERUPT NEC[ICD9: 782.1] Marcela Abdalla MD [facility] CPT-4: 32760 10/25/2012 ([id number]) 09740 EST. PATIENT, LEVEL IV Diagnosis: ESSENTIAL HYPERTENSION[SNOMED: 89443557] Diagnosis: HYPERLIPIDEMIA[ICD9: 272.4] Marcela Abdalla MD [facility] CPT-4: 65662 07/04/2012 ([id number]) 52468 EST. PATIENT, LEVEL IV Diagnosis: ESSENTIAL HYPERTENSION[SNOMED: 74203242] Diagnosis: HYPERLIPIDEMIA[ICD9: 272.4] Marcela Abdalla MD, [facility] CPT-4: 86857 12/26/2011 ([id number]) 43242 EST. PATIENT, LEVEL IV Diagnosis: ESSENTIAL HYPERTENSION[SNOMED: 93969605] Diagnosis: HYPERLIPIDEMIA[ICD9: 272.4] Marcela Abdalla MD, [facility] CPT-4: 73827 10/26/2011 ([id number]) 07991 EST. PATIENT, LEVEL IV Diagnosis: BPPV (benign paroxysmal positional vertigo)[ICD9: 386.11] Diagnosis: ESSENTIAL HYPERTENSION[SNOMED: 33241528] Tori Abdalla MD, [facility] CPT-4: 56716 09/15/2011 98570 EST. PATIENT, LEVEL III Diagnosis: Lesion of oral mucosa[ICD9: 528.9] Diagnosis: Rash and nonspecific skin eruption[ICD9: 782.1] Marcela Abdalla MD, [facility] CPT-4: 73316 05/10/2011 50017 EST. PATIENT, LEVEL IV Diagnosis: ESSENTIAL HYPERTENSION[SNOMED: 43632756] Diagnosis: Mouth sores[ICD9: 528.9] Marcela Abdalla MD, [facility] CPT-4: 98681 04/27/2011 Plan of Care Planned Activity Notes [...] 06/14/2018 Care Plan: Referral Order SNOMED-CT : [id number] Pending 06/14/2018 Appointment: Katie Ellis WPtel: [facility] [facility] - Annual Wellness Visit 02/12/2018 Visit [...] not improve. 09/19/2017 Appointment: Katie Ellis WPtel: [facility]0 [facility] (30 min) Complex 09/19/2017 Patient Education: [...] is to call for acute concerns. Epigastric bhpz-uhjwbrxw-zesum prilosec daily-monitor symptoms and call if abdominal pain does not improve or if any worse 07/21/2017 [facility]ment[phone] [facility] (30 min) Complex 07/21/2017 Patient Education: Patient [...] paperwork for health care surrogate. 02/06/2017 Appointment: [phone] [facility] - Annual Wellness Visit 02/06/2017 Patient [...] office. 02/03/2017 Appointment: Tori Duvall WPtel: [facility]5 [facility] (30 min) Complex 02/03/2017 Patient Education: Patient [...] mammogram 10/17/2016 Appointment: Tori Duvall WPtel: [facility]5 [phone] [facility] 10/17/2016 Patient Education: Patient [...] home. 11/17/2014 Appointment: Marcela Abdalla WPtel: [facility]4 [facility] Follow up 11/17/2014 [...] home. 05/19/2014 Appointment: Marcela Abdalla WPtel: [phone] [facility] Follow up 05/19/2014 [...] control. 11/04/2013 Appointment: Marcela Abdalla WPtel: [phone] [facility] Follow up 11/04/2013 [...] home. 08/05/2013 Appointment: Marcela Abdalla WPtel: [phone] [facility] Follow up 08/05/2013 [...] home. 05/22/2013 Appointment: Marcela Abdalla WPtel: [phone] [facility] Follow up 05/22/2013 Patient Education: [...] home. 02/20/2013 [phone] [facility] 02[facility]20/2013 Patient Education: [...] basis 10/25/2012 [phone] [facility] 10/25/2012 Patient Education: [...] medications. 07/04/2012 Appointment: Marcela Abdalla WPtel: [phone] [facility] Established Patient Preventative visit 07/04/2012 Patient Education: Patient Medication Summary Completed 07/04/2012 Patient Education: 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 Completed 07/04/2012 Appointment: Marcela Abdalla WPtel: [phone] [facility] Lab Draw 07/02/2012 Patient Education: [...] medications. 12/26/2011 Appointment: Marcela Abdalla WPtel: [phone] [facility] [facility] 12/26/2011 Patient Education: Patient Medication Summary [...] medications. 10/26/2011 App[facility]ment: [phone] [place] Other 10/26/2011 Patient Education: Patient Medication Summary Completed 10/26/2011 Patient Education: High Blood Pressure: Essential 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 Completed 10/26/2011 Appointment: Marcela Abdalla WPtel: [phone] [id number] [facility] 10/20/2011 Patient [...] changes. 09/15/2011 Appointment: Tori Duvall [facility]el[facility] [id number] [id number] [place] [facility] Draw 09/15/2011 Patient Education: Patient Medication Summary Completed 09/15/2011 Patient Education: .Amazing charts Paroxysmal positional vertigo Completed 09/15/2011 Patient Education: High Blood Pressure: Essential 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 Completed 09/15/2011 Appointment: Marcela Abdalla WPtel: [address] [place], [place] [id number] [place] Lab Draw 06/07/2011 Patient Education: Patient [...] the rash. 05/10/2011 Appointment: Marcela Abdalla WPtel: [address] [place], [place] [id number] Other 05/10/2011 Patient Education: Patient Medication Summary Completed 05/10/2011 Appointment: Marcela Abdalla WPtel: [address] [place], [place] [id number] Follow up 05/04/2011 Visit Plan: HTN- improved from high blood pressure earlier this week No change in current medication. Try to avoid high salt containing foods. 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 - well controlled - continue [...] is to call for acute concerns. Epigastric omzb-snwyvrwm-[id number] prilosec daily-monitor symptoms and call if abdominal [...] at [employer] [facility] [employer]- a [employer] salon [address] is a massage [...] basis . 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 - well controlled - pt [...]
--- OUTSIDE RECORDS SUMMARY | 2019-01-10 12:49 | XMS REPORT | CCD ---
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 Name Role Phone PP Unavailable CCM Unavailable Summary Purpose Interface Exchange Insurance Providers Payer name Policy type / Coverage type Covered democrat ID Effective Begin Date Effective End Date WPS Medicare Part B Medicare Part B [id number] Unknown Unknown [facility] [employer] Medicare Part B [id number] Unknown Unknown Family history Daughter Diagnosis Age [...] Unknown 04/27/2011 Number of children Unknown 4 [id number] 04/27/2011 Employment Unknown Retired 04/27/[address]: 320882278 Never smoker 04/27/[address]: 670256451 Never drinks alcohol 04/27/2011 Has the patient [...] Start Date Stop Date Status Fill Instructions prednisone 20 mg tablet RxNorm: 168948 2 Tablet(s) PO daily 09/19/2017 09/23/2017 Inactive lisinopril 10 mg tablet RxNorm: 868805 1 Tablet(s) PO QPM 07/21/2017 01/16/2018 Inactive Kenalog 40 mg/mL suspension for injection RxNorm: 4383470 1 Milliliter(s) Inj 02/03/2017 02/03/2017 Inactive Zocor 10 mg tablet RxNorm: 293290 1 Tablet(s) PO daily 05/14/2015 05/13/2015 Inactive Zocor 10 mg tablet RxNorm: 621021 1 Tablet(s) PO daily 05/14/2015 05/06/2016 Inactive Zocor 10 mg tablet RxNorm: 526678 1 Tablet(s) PO daily 05/14/2015 05/07/2016 Inactive snosapqb-ewmopxmqr-hsidhezya 3.5 mg/g-10,000 unit/g-0.5 %topical cream RxNorm: 1776703 3 gtts TOP TID 11/17/2014 11/26/2014 Inactive [SAVINGS FOR NON-COVERED DRUGS -- BIN:[id number], PCN: [id number], Group: [id number], ID# [id number], Questions: . THIS IS NOT INSURANCE.] simvastatin 40 mg tablet RxNorm: 326861 1/2 Tablet(s) PO QHS 10/09/2013 11/03/2013 Inactive Synthroid 25 mcg tablet RxNorm: 497093 1 Tablet(s) PO daily 08/19/2013 11/11/2014 Inactive clobetasol 0.05 % Topical Cream RxNorm: 920944 1 Application TOP TID PRN 04/05/2013 07/03/2013 Inactive nystatin 100,000 unit/gram Topical Powder RxNorm: 629013 Gram(s) TOP apply to affected area as needed 03/22/2013 10/16/2016 Inactive fluconazole 150 mg tablet RxNorm: 501040 1 Tablet(s) PO 03/19/2013 03/18/2013 Inactive take one at outbreak and then use nystatin powder (she has nystatin at home) fluconazole 150 mg tablet RxNorm: 174895 1 Tablet(s) PO 03/19/2013 03/25/2013 Inactive take one at outbreak and then use nystatin powder (she has nystatin at home) simvastatin 40 mg tablet RxNorm: 919277 1/2 Tablet(s) PO QHS 03/18/2013 07/15/2013 Inactive Synthroid 25 mcg tablet RxNorm: 233318 1 Tablet(s) PO daily 03/18/2013 08/14/2013 Inactive clobetasol 0.05 % Topical Cream RxNorm: 183081 1 Application TOP TID PRN 10/25/2012 01/22/2013 Inactive Coreg 3.125 mg tablet RxNorm: 354845 1 Tablet(s) PO BID 04/17/2012 07/03/2012 Inactive Coreg 3.125 mg tablet RxNorm: 156012 1 Tablet(s) PO BID 03/16/2012 04/14/2012 Inactive Diflucan 150 mg Tab RxNorm: 073113 1 Tablet(s) PO daily 12/26/2011 01/22/2012 Inactive simvastatin 40 mg tablet RxNorm: 870115 1/2 Tablet(s) PO QHS 04/27/2011 03/17/2013 Inactive Vitamin C Oral RxNorm: Oral No Start Date 10/16/2016 Inactive Synthroid 25 mcg tablet RxNorm: 728872 Tablet(s) PO No Start Date 03/17/2013 Inactive coenzyme Q10 75 mg Cap RxNorm: 095232 1 Capsule(s) PO daily No Start Date 10/16/2016 Inactive Coreg 3.125 mg tablet RxNorm: 192477 1 Tablet(s) PO BID No Start Date 03/15/2012 Inactive simvastatin 40 mg Tab RxNorm: 939879 1 Tablet(s) PO QHS No Start Date 04/26/2011 Inactive aspirin 81 mg capsule,delayed release RxNorm: 808527 1 Capsule(s) PO daily No Start Date 10/16/2016 Inactive metoprolol succinate ER 50 mg tablet,extended release 24 hr RxNorm: 346558 1 Tablet(s) PO daily No Start Date 10/16/2016 Inactive lisinopril 20 mg tablet RxNorm: 335553 1 Tablet(s) PO as needed No Start Date 07/20/2017 Inactive Bystolic 5 mg Tab RxNorm: 635119 1 Tablet(s) PO daily No Start Date 10/30/2011 Inactive clobetasol 0.05 % Topical Cream RxNorm: 570272 TOP No Start Date 10/24/2012 Inactive omega-3 fatty acids 1,250 mg Cap RxNorm: 6877845 1 Capsule(s) PO daily No Start Date 10/16/2016 Inactive coenzyme Q10 oral RxNorm: 36602 oral No Start Date 06/13/2018 Inactive meclizine 12.5 mg Tab RxNorm: 245124 1/2-1 Tablet(s) PO Q6 PRN No Start Date 05/18/2014 Inactive promethazine 25 mg Rectal Suppository RxNorm: 649953 1 Suppository RTL Q6 PRN No Start Date 07/03/2012 Inactive nystatin 100,000 unit/gram Topical Powder RxNorm: 090945 Gram(s) TOP apply to affected area as needed No Start Date 03/21/2013 Inactive Medication Administered Medication Codes Instructions Start Date Status Kenalog 40 mg/mL suspension for injection RxNorm: 2605255 1Milliliter 02/03/2017 No longer Active Immunizations Vaccine [...] 31.1 pg 10/28/2016 Cbc With Differential Ord2 [place]% 11.9 % 10/28/2016 Cbc With Differential Ord2 Eos% 4.8 % 10/28/2016 Cbc With Differential Ord2 MCHC 32.7 pg 10/28/2016 Cbc With Differential Ord2 Baso% 1.0 % 10/28/2016 Cbc With Differential Ord2 PLT 300 K/ul 10/28/2016 Cbc With Differential Ord2 Neut ABS# 2.00 K/ul 10/28/2016 Cbc With Differential Ord2 RDW 15.1 % 10/28/2016 Cbc With Differential Ord2 Lymph ABS# 2.07 K/ul 10/28/2016 Cbc With Differential Ord2 [place] ABS# 0.6 K/ul 10/28/2016 Cbc With Differential Ord2 Eos ABS# 0.2 K/ul 10/28/2016 Cbc With Differential Ord2 Baso ABS# 0.1 K/ul 10/28/2016 Tsh Ord6 hTSH II 2.77 uIU/mL 10/28/2016 Comp Metabolic Rvf572 NA 138 mEq/L 10/28/2016 Comp Metabolic Eih468 K 4.6 mEq/L 10/28/2016 Comp Metabolic Xko666 CL 104 mEq/L 10/28/2016 Comp Metabolic Zlm632 CO2 29.0 mEq/L 10/28/2016 Comp Metabolic Rmh473 ANION GAP 10 10/28/2016 Comp Metabolic Lwp014 GLUCOSE 88 mg/dL 10/28/2016 Comp Metabolic Sra561 Creat 0.9 mg/dL 10/28/2016 Comp Metabolic Pfq082 eGFR 60 ml/min/1.73m2 10/28/2016 Comp Metabolic Tlb018 BUN 27 mg/dL 10/28/2016 Comp Metabolic Vbs261 B/C Ratio 28.7 Ratio 10/28/2016 Comp Metabolic Tho880 CALCIUM 9.7 mg/dL 10/28/2016 Comp Metabolic Cna929 ALK PHOS 58 U/L 10/28/2016 Comp Metabolic Jdh516 AST(SGOT) 20 U/L 10/28/2016 Comp Metabolic Xgk774 ALT(SGPT) 14 U/L 10/28/2016 Comp Metabolic Btf371 BILI T 0.6 mg/dL 10/28/2016 Comp Metabolic Lpr172 ALBUMIN 3.6 g/dL 10/28/2016 Comp Metabolic Lnk187 TPRO 6.3 g/dL 10/28/2016 Comp Metabolic Zgq852 GLOB 2.7 g/dL 10/28/2016 Comp Metabolic Asi539 A/G Ratio 1.3 Ratio 10/28/2016 Comp Metabolic Ray318 Osmo 280 mOsmo 10/28/2016 LIPID GRP HDL TEST 60 MG/DL 05/13/2015 LIPID GRP TRIG 100 MG/DL 05/13/2015 LIPID GRP TEST LDL 190 MG/DL 05/13/2015 LIPID GRP CHOL 270 MG/DL 05/13/2015 LIPID GRP RCHOL/HDL 4.50 RATIO 05/13/2015 LIPID GRP NON-HDL CH 210 MG/DL 05/13/2015 LIVER PNL 9984367 AST 29 U/L 05/13/2015 LIVER PNL 1810989 ALK PHOS 70 U/L 05/13/2015 LIVER PNL 7646359 BILI TOT 0.5 MG/DL 05/13/2015 LIVER PNL 6257703 ALT 27 IU/L 05/13/2015 LIVER PNL 3258857 BILI DIR 0.1 MG/DL 05/13/2015 LIVER PNL 1322650 ALBUMIN 3.8 GM/DL 05/13/2015 LIVER PNL 3202184 PROT TOT 7.3 GM/DL 05/13/2015 TSH 6987120 TSH 3.354 uIU/ML 07/24/2013 LIPID GRP HDL TEST 46 MG/DL 07/24/2013 LIPID GRP TRIG 86 MG/DL 07/24/2013 LIPID GRP TEST LDL 113 MG/DL 07/24/2013 LIPID GRP CHOL 176 MG/DL 07/24/2013 LIPID GRP RCHOL/HDL 3.83 RATIO 07/24/2013 CHEM 14 5592470 AST 25 U/L 07/24/2013 CHEM 14 6640259 ALT 20 IU/L 07/24/2013 CHEM 14 4492226 BUN 18 MG/DL 07/24/2013 CHEM 14 1345508 ALBUMIN 4.0 GM/DL 07/24/2013 CHEM 14 5544356 CHLORIDE 105 MMOL/L 07/24/2013 CHEM 14 9301887 BILI TOT 0.4 MG/DL 07/24/2013 CHEM 14 3153554 ALK PHOS 57 U/L 07/24/2013 CHEM 14 2965531 SODIUM 139 MMOL/L 07/24/2013 CHEM 14 4686398 CREATININE 0.83 MG/DL 07/24/2013 CHEM 14 8916543 CALCIUM 10.0 MG/DL 07/24/2013 CHEM 14 2468042 POTASSIUM 4.5 MMOL/L 07/24/2013 CHEM 14 3588720 PROT TOT 6.3 GM/DL 07/24/2013 CHEM 14 6306256 GLUCOSE 91 MG/DL 07/24/2013 CHEM 14 1956115 BICARB 28 MMOL/L 07/24/2013 CHEM 14 4207285 ANION GAP 6 MEQ/L 07/24/2013 FREE T4 5099786 FREE T4 1.17 NG/DL 07/24/2013 GFR CALC 2447681 GFR AA >60 ML/MIN 07/24/2013 GFR CALC 9503847 GFR NON-AA >60 ML/MIN 07/24/2013 CBC 4511320 WBC 5.7 10e9/L 07/24/2013 CBC 9274207 RBC 4.39 10e12/L 07/24/2013 CBC 9364859 HGB 13.6 g/dL 07/24/2013 CBC 4471504 HCT DET 41.7 % 07/24/2013 CBC 1205160 MCV 95.0 fL 07/24/2013 CBC 3257835 MCH 31.0 pg 07/24/2013 CBC 9371858 MCHC 32.6 g/dL 07/24/2013 CBC 3702491 PLT 341 10e9/L 07/24/2013 CBC 1627332 MPV 9.7 fL 07/24/2013 CBC 1765472 RORO % 37.9 % 07/24/2013 CBC 2967642 LY % 38.1 % 07/24/2013 CBC 4590062 MON % 12.0 % 07/24/2013 CBC 7196039 EOS % 9.9 % 07/24/2013 CBC 9257812 BASO % 2.1 % 07/24/2013 CBC 0557053 RDW 14.1 % 07/24/2013 CBC 9083245 ABS RORO 2.16 10e9/L 07/24/2013 CBC 6847177 ABS LYMPH 2.17 10e9/L 07/24/2013 CBC 5170862 ABS MONO 0.68 10e9/L 07/24/2013 CBC 9307444 ABS EOS 0.56 10e9/L 07/24/2013 CBC 5298070 ABS BASO 0.12 10e9/L 07/24/2013 CBC 7327433 RDW-SD 47.2 fL 07/24/2013 FREE T4 6431698 FREE T4 0.97 NG/DL 03/14/2013 TSH 7386848 TSH 6.175 uIU/ML 03/13/2013 LIPID GRP HDL TEST 51 MG/DL 03/13/2013 LIPID GRP TRIG 182 MG/DL 03/13/2013 LIPID GRP TEST LDL 191 MG/DL 03/13/2013 LIPID GRP CHOL 278 MG/DL 03/13/2013 LIPID GRP RCHOL/HDL 5.45 RATIO 03/13/2013 CHEM 14 1320793 AST 23 U/L 03/13/2013 CHEM 14 9411549 ALT 18 IU/L 03/13/2013 CHEM 14 2581693 BUN 21 MG/DL 03/13/2013 CHEM 14 7124848 ALBUMIN 4.1 GM/DL 03/13/2013 CHEM 14 9567442 CHLORIDE 107 MMOL/L 03/13/2013 CHEM 14 3497710 BILI TOT 0.4 MG/DL 03/13/2013 CHEM 14 7484497 ALK PHOS 57 U/L 03/13/2013 CHEM 14 2361553 SODIUM 140 MMOL/L 03/13/2013 CHEM 14 9304868 CREATININE 0.94 MG/DL 03/13/2013 CHEM 14 0534928 CALCIUM 9.8 MG/DL 03/13/2013 CHEM 14 4536193 POTASSIUM 4.4 MMOL/L 03/13/2013 CHEM 14 8728952 PROT TOT 6.1 GM/DL 03/13/2013 CHEM 14 1813231 GLUCOSE 90 MG/DL 03/13/2013 CHEM 14 6117479 BICARB 27 MMOL/L 03/13/2013 CHEM 14 4511396 ANION GAP 6 MEQ/L 03/13/2013 GFR CALC 7302647 GFR AA >60 ML/MIN 03/13/2013 GFR CALC 3347107 GFR NON-AA 57.0L ML/MIN 03/13/2013 CBC 9187649 WBC 4.9 10e9/L 07/02/2012 CBC 0756223 RBC 4.20 10e12/L 07/02/2012 CBC 6837044 HGB 13.3 g/dL 07/02/2012 CBC 6698645 HCT DET 40.2 % 07/02/2012 CBC 3469851 MCV 95.7 fL 07/02/2012 CBC 2370569 MCH 31.7 pg 07/02/2012 CBC 1761421 MCHC 33.1 g/dL 07/02/2012 CBC 5830030 PLT 317 10e9/L 07/02/2012 CBC 4306147 MPV 10.3 fL 07/02/2012 CBC 1505853 RORO % 40.1 % 07/02/2012 CBC 9762708 LY % 42.8 % 07/02/2012 CBC 5335910 MON % 12.0 % 07/02/2012 CBC 4628905 EOS % 4.3 % 07/02/2012 CBC 0030135 BASO % 0.8 % 07/02/2012 CBC 1191011 RDW 13.9 % 07/02/2012 CBC 6318367 ABS RORO 1.96 10e9/L 07/02/2012 CBC 7609131 ABS LYMPH 2.10 10e9/L 07/02/2012 CBC 7462440 ABS MONO 0.59 10e9/L 07/02/2012 CBC 9722046 ABS EOS 0.21 10e9/L 07/02/2012 CBC 6073604 ABS BASO 0.04 10e9/L 07/02/2012 CBC 0084198 RDW-SD 47.3 fL 07/02/2012 CHEM 14 0936233 AST 23 U/L 07/02/2012 CHEM 14 9117195 ALT 20 IU/L 07/02/2012 CHEM 14 3365406 BUN 14 MG/DL 07/02/2012 CHEM 14 4026129 ALBUMIN 3.8 GM/DL 07/02/2012 CHEM 14 8839982 CHLORIDE 108 MMOL/L 07/02/2012 CHEM 14 2279225 BILI TOT 0.4 MG/DL 07/02/2012 CHEM 14 2429463 ALK PHOS 66 U/L 07/02/2012 CHEM 14 7123191 SODIUM 143 MMOL/L 07/02/2012 CHEM 14 9051424 CREATININE 0.88 MG/DL 07/02/2012 CHEM 14 6518108 CALCIUM 9.7 MG/DL 07/02/2012 CHEM 14 1105634 POTASSIUM 4.6 MMOL/L 07/02/2012 CHEM 14 7990167 PROT TOT 6.4 GM/DL 07/02/2012 CHEM 14 5321040 GLUCOSE 87 MG/DL 07/02/2012 CHEM 14 1860459 BICARB 28 MMOL/L 07/02/2012 CHEM 14 1610180 ANION GAP 7 MEQ/L 07/02/2012 GFR CALC 5714390 GFR AA >60 ML/MIN 07/02/2012 GFR CALC 6712308 GFR NON-AA >60 ML/MIN 07/02/2012 FREE T4 5574993 FREE T4 1.10 NG/DL 07/02/2012 TSH 7812005 TSH 2.909 uIU/ML 07/02/2012 LIPID GRP HDL TEST 54 MG/DL 07/02/2012 LIPID GRP TRIG 102 MG/DL 07/02/2012 LIPID GRP TEST LDL 109 MG/DL 07/02/2012 LIPID GRP CHOL 183 MG/DL 07/02/2012 LIPID GRP RCHOL/HDL 3.39 RATIO 07/02/2012 URINALYSIS NONAUTO W/O SCOPE 56704 Specific [place] 1.005 DateTime(Free Text in Aprima) URINALYSIS NONAUTO W/O SCOPE 01823 PH 5.0 DateTime(Free Text in Aprima) URINALYSIS NONAUTO W/O SCOPE 12425 GLUCOSE NEG DateTime(Free Text in Aprima) URINALYSIS NONAUTO W/O SCOPE 92795 Protein NEG DateTime(Free Text in Aprima) URINALYSIS NONAUTO W/O SCOPE 53631 Blood NEG DateTime(Free Text in Aprima) URINALYSIS NONAUTO W/O SCOPE 67374 Bilirubin NEG DateTime(Free Text in Aprima) URINALYSIS NONAUTO W/O SCOPE 75929 Ketones NEG DateTime(Free Text in Aprima) URINALYSIS NONAUTO W/O SCOPE 03886 Urobilinogen NEG DateTime(Free Text in Aprima) URINALYSIS NONAUTO W/O SCOPE 27591 Nitrite NEG DateTime(Free Text in Aprima) URINALYSIS NONAUTO W/O SCOPE 96896 Leukocytes NEG DateTime(Free Text in Aprima) Review [...] clear 05/19/2014 None Full Exam - General 1995 Ears/Nose/Throat lips/teeth/gingiva Overall: benign lips 05/19/2014 None Full Exam - General 1995 Ears/Nose/Throat lips/teeth/gingiva Overall: normal dentition 05/19/2014 None [...] dentition 08/05/2013 None Full Exam - General 1995 Ears/Nose/Throat lips/teeth/gingiva Overall: benign gingiva 08/05/2013 None Full Exam - General 1994 Ears/Nose/Throat lips/teeth/gingiva Overall: no masses 08/05/2013 None Full Exam - General 1995 Ears/Nose/Throat oral cavity/pharynx/larynx Overall: hypopharynx benign 08/05/2013 [...] General 1994 Cardiovascular extremities Overall: no clubbing 05/22/2013 None [...] accomodation 02/20/2013 None Full Exam - General 1995 [...] benign 04/27/2011 None Full Exam - General 1995 Neck [...] INJ NOS CPT-4: J3301 02/03/2017 PAP CPT-4: 7588885 10/17/2016 ROUTINE VENIPUNCTURE CPT- 4: 60342 07/24/2013 ROUTINE VENIPUNCTURE CPT- 4: 37961 03/13/2013 PRESCRIP TRANSMIT VIA ERX SY CPT-4: G8553 10/25/2012 ROUTINE VENIPUNCTURE CPT- 4: 13849 07/02/2012 PRESCRIP TRANSMIT VIA ERX SY CPT-4: G8553 12/26/2011 ROUTINE VENIPUNCTURE CPT- 4: 23866 10/20/2011 URINALYSIS NONAUTO W/O SCOPE CPT-4: 75511 09/15/2011 PRESCRIP TRANSMIT VIA ERX SY CPT-4: G8553 09/15/2011 ROUTINE VENIPUNCTURE CPT- 4: 66640 06/07/2011 PRESCRIP TRANSMIT VIA ERX SY CPT-4: G8553 04/27/2011 Vital Signs Date Vital 06/14/2018 Blood Pressure 1: 142/76 Code: 8480-6 BMI: 33.0 Code: 00909-9 Heart Rate 1: 72 bpm Height: 5'4" SpO2: 97% Waist Measure (cm): 107 cm Weight: 195 lbs 09/19/2017 Blood Pressure 1: 148/70 Code: 8480-6 BMI: 33.3 Code: 38469-8 Heart Rate 1: 82 bpm Height: 5'4" SpO2: 98% Weight: 197 lbs 07/21/2017 Blood Pressure 1: 160/62 Code: 8480-6 Blood Pressure 1: 144/68 Code: 8480-6 BMI: 33.3 Code: 31528-2 Heart Rate 1: 75 bpm Height: 5'4" SpO2: 98% Weight: 197 lbs 02/06/2017 Blood Pressure 1: 142/84 Code: 8480-6 BMI: 32.1 Code: 47251-0 Heart Rate 1: 76 bpm Height: 5'4" SpO2: 96% Weight: 190 lbs 02/03/2017 Blood Pressure 1: 142/84 Code: 8480-6 BMI: 32.2 Code: 48207-8 Heart Rate 1: 76 bpm Height: 5'4" SpO2: 96% Weight: 190 lbs 8 oz 10/17/2016 Blood Pressure 1: 136/90 Code: 8480-6 BMI: 31.6 Code: 99900-9 Heart Rate 1: 76 bpm Height: 5'4" SpO2: 98% Weight: 187 lbs 07/14/2015 Blood Pressure 1: 150/80 Code: 8480-6 BMI: 31.1 Code: 81752-7 Heart Rate 1: 74 bpm Height: 5'4" SpO2: 95% Weight: 184 lbs 11/17/2014 Blood Pressure 1: 142/88 Code: 8480-6 BMI: 32.3 Code: 58294-5 Heart Rate 1: 72 bpm Height: 5'4" Weight: 191 lbs 05/19/2014 Blood Pressure 1: 136/74 Code: 8480-6 BMI: 32.8 Code: 36302-4 Heart Rate 1: 72 bpm Height: 5'4" Weight: 194 lbs 11/04/2013 Blood Pressure 1: 154/76 Code: 8480-6 BMI: 31.4 Code: 77489-1 Heart Rate 1: 76 bpm Height: 5'4" Weight: 186 lbs 08/05/2013 Blood Pressure 1: 150/78 Code: 8480-6 BMI: 30.9 Code: 50575-6 Heart Rate 1: 60 bpm Height: 5'4" Weight: 183 lbs 05/22/2013 Blood Pressure 1: 156/76 Code: 8480-6 BMI: 31.8 Code: 86560-1 Heart Rate 1: 72 bpm Height: 5'4" Weight: 188 lbs 02/20/2013 Blood Pressure 1: 138/78 Code: 8480-6 BMI: 32.1 Code: 02335-1 Heart Rate 1: 72 bpm Height: 5'4" Weight: 190 lbs 10/25/2012 Blood Pressure 1: 138/82 Code: 8480-6 BMI: 31.8 Code: 67540-3 Heart Rate 1: 72 bpm Height: 5'4" Weight: 188 lbs 07/04/2012 Blood Pressure 1: 136/70 Code: 8480-6 Heart Rate 1: 72 bpm Weight: 187 lbs 12/26/2011 Blood Pressure 1: 152/82 Code: 8480-6 BMI: 30.4 Code: 77436-5 Heart Rate 1: 78 bpm Height: 5'4" Respiratory Rate: 16 bpm Weight: 180 lbs 10/26/2011 Blood Pressure 1: 140/64 Code: 8480-6 Heart Rate 1: 64 bpm Weight: 181 lbs 8 oz 09/15/2011 Blood Pressure 1: 152/82 Code: 8480-6 BMI: 30.8 Code: 46983-0 Heart Rate 1: 60 bpm Height: 5'4" Temperature: 36.8 (C) / 98.3 (F) Weight: 182 lbs 06/07/2011 Blood Pressure 1: 154/80 Code: 8480-6 05/10/2011 Blood Pressure 1: 122/66 Code: 8480-6 BMI: 30.7 Code: 90904-4 Heart Rate 1: 66 bpm Height: 5'4" Respiratory Rate: 12 bpm Weight: 181 lbs 8 oz 04/27/2011 Blood Pressure 1: 136/70 Code: 8480-6 BMI: 30.6 Code: 45032-3 Heart Rate 1: 72 bpm Height: 5'4" [...] Low back pain[ICD10: M54.5] Katie Abdalla MD, [facility] CPT-4: 75734 09/19/2017 ([id number]) 57987 EST. PATIENT, LEVEL III Diagnosis: Essential (primary) hypertension[ICD10: I10] Diagnosis: Epigastric pain[ICD10: R10.13] Tori Abdalla MD, [facility] CPT-4: 56864 07/21/2017 ([id number]) 62449 EST. PATIENT, LEVEL III Diagnosis: Low back pain[ICD10: M54.5] Tori Abdalla MD, [facility] CPT-4: 03963 02/03/2017 ([id number]) 28029 EST. PATIENT, LEVEL IV Diagnosis: Encounter for gynecological examination (general) (routine) without abnormal findings[ICD10: Z01.419] Tori Abdalla MD, [facility] CPT-4: 81289 10/17/2016 [id number] EST. PATIENT, LEVEL III Diagnosis: Low back pain[ICD10: M54.5] Katie Abdalla MD, [facility] CPT-4: 77956 07/14/2015 ([id number]) 38551 EST. PATIENT, LEVEL III Diagnosis: ESSENTIAL HYPERTENSION[ICD9: 401.9] Marcela Abdalla MD, [facility] CPT- 4: 44881 11/17/2014 ([id number]) 53159 EST. PATIENT, LEVEL III Diagnosis: ESSENTIAL HYPERTENSION[ICD9: 401.9] Diagnosis: HYPERLIPIDEMIA[ICD9: 272.4] Diagnosis: HYPOTHYROIDISM[ICD9: 244.9] Marcela Abdalla MD, [facility] CPT-4: 74516 05/19/2014 ([id number]) 53099 EST. PATIENT, LEVEL IV Diagnosis: HYPOTHYROIDISM[ICD9: 244.9] Diagnosis: ESSENTIAL HYPERTENSION[SNOMED: 92383753] Marcela Abdalla MD, [facility] CPT-4: 34301 11/04/2013 ([id number]) 70239 EST. PATIENT, LEVEL III Diagnosis: ESSENTIAL HYPERTENSION[SNOMED: 24129319] Marcela Abdalla MD, [facility] CPT-4: 71589 08/05/2013 ([id number]) 96692 EST. PATIENT, LEVEL III Diagnosis: ESSENTIAL HYPERTENSION[SNOMED: 18113869] Marcela Abdalla MD [facility] CPT-4: 21918 05/22/2013 ([id number]) 41023 EST. PATIENT, LEVEL III Diagnosis: ESSENTIAL HYPERTENSION[SNOMED: 25451223] Marcela Abdalla MD [facility] CPT-4: 99391 02/20/2013 ([id number]) 03725 EST. PATIENT, LEVEL IV Diagnosis: ESSENTIAL HYPERTENSION[SNOMED: 71989151] Diagnosis: HYPERLIPIDEMIA[ICD9: 272.4] Diagnosis: NONSPECIF SKIN ERUPT NEC[ICD9: 782.1] Marcela Abdalla MD [facility] CPT-4: 76563 10/25/2012 ([id number]) 63899 EST. PATIENT, LEVEL IV Diagnosis: ESSENTIAL HYPERTENSION[SNOMED: 25119354] Diagnosis: HYPERLIPIDEMIA[ICD9: 272.4] Marcela Abdalla MD [facility] CPT-4: 01412 07/04/2012 ([id number]) 52074 EST. PATIENT, LEVEL IV Diagnosis: ESSENTIAL HYPERTENSION[SNOMED: 27743603] Diagnosis: HYPERLIPIDEMIA[ICD9: 272.4] Marcela Abdalla MD [facility] CPT-4: 46566 12/26/2011 ([id number]) 03030 EST. PATIENT, LEVEL IV Diagnosis: ESSENTIAL HYPERTENSION[SNOMED: 13701731] Diagnosis: HYPERLIPIDEMIA[ICD9: 272.4] Marcela Abdalla MD [facility] CPT-4: 26438 10/26/2011 ([id number]) 79131 EST. PATIENT, LEVEL IV Diagnosis: BPPV (benign paroxysmal positional vertigo)[ICD9: 386.11] Diagnosis: ESSENTIAL HYPERTENSION[SNOMED: 71772121] Tori Abdalla MD [facility] CPT-4: 12614 09/15/2011 [id number] EST. PATIENT, LEVEL III Diagnosis: Lesion of oral mucosa[ICD9: 528.9] Diagnosis: Rash and nonspecific skin eruption[ICD9: 782.1] Marcela Abdalla MD [facility] CPT-4: 77419 05/10/2011 [id number] EST. PATIENT, LEVEL IV Diagnosis: ESSENTIAL HYPERTENSION[SNOMED: 86013169] Diagnosis: Mouth sores[ICD9: 528.9] [facility] CPT-4: 47777 04/27/2011 Plan of Care Planned Activity Notes [...] Patient Medication Summary Completed 06/14/2018 Care Plan: Comp Metabolic Pending 06/14/2018 Care Plan: Cbc With Differential Pending 06/14/2018 Care Plan: Tsh Pending 06/14/2018 Care Plan: Lipid Pending 06/14/2018 Care Plan: Referral Order SNOMED-CT : [id number] Pending 06/14/2018 Appointment: Katie Ellis WPtel: [phone] [facility] [facility] - Annual Wellness Visit 02/12/2018 [...] improve. 09/19/2017 Appointment: Katie Ellis WPtel: [phone] [facility] (30 min) Complex 09/19/2017 Patient Education: Patient [...] is to call for acute concerns. Epigastric dfum-iuvciotf-ymxph prilosec daily-monitor symptoms and call if abdominal pain does not improve or if any worse 07/21/2017 [phone] (30 min) Complex 07/21/2017 Patient Education: Patient [...] surrogate. 02/06/2017 Appointment: Katie Ellis WPtel: [phone] [facility] [facility] - Annual Wellness Visit 02/06/2017 [...] the office. 02/03/2017 Appointment: Tori Duvall WPtel: [phone] (30 min) Complex 02/03/2017 Patient Education: Patient [...] mammogram 10/17/2016 Appointment: Tori Duvall WPtel: [phone] [phone] [facility] 10/17/2016 Patient Education: Patient Medication [...] at home. 11/17/2014 Appointment: Marcela Abdalla WPtel: [facility]5 [facility] Follow up 11/17/2014 Patient Education: Patient [...] at home. 05/19/2014 Appointment: Marcela Abdalla WPtel: [address] [place], [place] [id number] Follow up 05/19/2014 Patient Education: Patient Medication [...] control. 11/04/2013 [facility]ment: [phone] Follow [facility] 11/04/2013 Patient Education: Patient Medication [...] home. 08/05/2013 Appointment: Marcela Abdalla WPtel: [phone] [facility] Follow up 08/05/2013 Patient Education: Patient [...] home. 05/22/2013 Appointment: Marcela Abdalla WPtel: [phone] [facility] Follow up 05/22/2013 Patient Education: Patient [...] home. 02/20/2013 Appointment: Marcela Abdalla WPtel: [phone] [facility] Follow up 02/20/2013 Patient Education: Patient [...] continuous basis 10/25/2012 Appointment: Marcela Abdalla WPtel: [facility]5 [facility] Follow up 10/25/2012 Patient Education: Patient [...] to medications. 07/04/2012 Appointment: Marcela Abdalla WPtel: [facility] Established Patient Preventative visit 07/04/2012 Patient Education: Patient Medication Summary Completed 07/04/2012 Patient Education: 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 Completed 07/04/2012 Appointment: Marcela Abdalla WPtel: [facility]8 [facility] Lab Draw 07/02/2012 Patient Education: Patient Medication [...] to medications. 12/26/2011 Appointment: Marcela Abdalla WPtel: [phone] [facility] Other 12/26/2011 Patient Education: Patient Medication Summary [...] to medications. 10/26/2011 App[facility]ment: [phone] Other 10/26/2011 Patient Education: Patient Medication Summary Completed 10/26/2011 Patient Education: High Blood Pressure: Essential 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 Completed 10/26/2011 Appointment: Marcel[facility] Abdalla [facility]el[phone] [place] [facility] 10/20/2011 Patient Education: Patient [...] changes. 09/15/2011 [phone] [facility] 09/15/2011 Patient Education: Patient Medication Summary Completed 09/15/2011 Patient Education: .Amazing charts Paroxysmal positional vertigo Completed 09/15/2011 Patient Education: High Blood Pressure: Essential 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 Completed 09/15/2011 Appointment: Marcela Abdalla WPtel: [facility] [facility] 06/07/2011 Patient Education: Patient [...] the rash. 05/10/2011 App[facility]ment: [id number] [place] Other 05/10/2011 Patient Education: Patient Medication Summary Completed 05/10/2011 Appointment: [id number] [place] Follow up 05/04/2011 Visit Plan: HTN- improved from high blood pressure earlier this week No change in current medication. Try to avoid high salt containing foods. 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 Mouth [...] is to call for acute concerns. Epigastric [id number]-[id number]-[id number] prilosec daily-monitor symptoms and call if abdominal [...] at [facility]- a [facility] [address] is a massage therapist to call about a deep tissue massage RETURN TO CLINIC NEXT WEEK FOR DR TO TAKE A QUICK LOOK AT YOUR MOUTH
--- OUTSIDE RECORDS SUMMARY | 2019-01-10 12:51 | XMS REPORT | CCD ---
Author Author [facility] Organization [facility] Address [address] [place] [address] Phone Care Team Providers Care Summer Law Clerk Name Role Phone PP Unavailable CCM Unavailable Summary Purpose Interface Exchange Insurance Providers Payer name Policy type / Coverage type Covered green party ID Effective Begin Date Effective End Date WPS Medicare Part B Medicare Part B [id number] Unknown Unknown [facility] LIFE INSUR Medicare Part B [id number] Unknown Unknown Family history Daughter Diagnosis Age [...] Unknown 04/27/2011 Number of children Unknown 4 [id number] 04/27/2011 Employment Unknown Retired 04/27/[address]: 803827863 Never smoker 04/27/[address]: 834215113 Never drinks alcohol 04/27/2011 Has the patient [...] Fill Instructions prednisone 20 mg tablet RxNorm: 656559 2 Tablet(s) PO daily 09/19/2017 09/23/2017 Inactive lisinopril 10 mg tablet RxNorm: 073783 1 Tablet(s) PO QPM 07/21/2017 01/16/2018 Inactive Kenalog 40 mg/mL suspension for injection RxNorm: 7626838 1 Milliliter(s) Inj 02/03/2017 02/03/2017 Inactive Zocor 10 mg tablet RxNorm: 680515 1 Tablet(s) PO daily 05/14/2015 05/13/2015 Inactive Zocor 10 mg tablet RxNorm: 901454 1 Tablet(s) PO daily 05/14/2015 05/06/2016 Inactive Zocor 10 mg tablet RxNorm: 919817 1 Tablet(s) PO daily 05/14/2015 05/07/2016 Inactive iketvnxy-nkbjiqvyr-hjmzeydpd 3.5 mg/g-10,000 unit/g-0.5 %topical cream RxNorm: 1908969 3 gtts TOP TID 11/17/2014 11/26/2014 Inactive [SAVINGS FOR NON-COVERED DRUGS -- BIN:[id number], PCN: [id number], Group: XXXXX, ID# [id number], Questions: . THIS IS NOT INSURANCE.] simvastatin 40 mg tablet RxNorm: 877827 1/2 Tablet(s) PO QHS 10/09/2013 11/03/2013 Inactive Synthroid 25 mcg tablet RxNorm: 561423 1 Tablet(s) PO daily 08/19/2013 11/11/2014 Inactive clobetasol 0.05 % Topical Cream RxNorm: 643819 1 Application TOP TID PRN 04/05/2013 07/03/2013 Inactive nystatin 100,000 unit/gram Topical Powder RxNorm: 406763 Gram(s) TOP apply to affected area as needed 03/22/2013 10/16/2016 Inactive fluconazole 150 mg tablet RxNorm: 587523 1 Tablet(s) PO 03/19/2013 03/18/2013 Inactive take one at outbreak and then use nystatin powder (she has nystatin at home) fluconazole 150 mg tablet RxNorm: 169913 1 Tablet(s) PO 03/19/2013 03/25/2013 Inactive take one at outbreak and then use nystatin powder (she has nystatin at home) simvastatin 40 mg tablet RxNorm: 549492 1/2 Tablet(s) PO QHS 03/18/2013 07/15/2013 Inactive Synthroid 25 mcg tablet RxNorm: 283593 1 Tablet(s) PO daily 03/18/2013 08/14/2013 Inactive clobetasol 0.05 % Topical Cream RxNorm: 723758 1 Application TOP TID PRN 10/25/2012 01/22/2013 Inactive Coreg 3.125 mg tablet RxNorm: 254141 1 Tablet(s) PO BID 04/17/2012 07/03/2012 Inactive Coreg 3.125 mg tablet RxNorm: 240843 1 Tablet(s) PO BID 03/16/2012 04/14/2012 Inactive Diflucan 150 mg Tab RxNorm: 267895 1 Tablet(s) PO daily 12/26/2011 01/22/2012 Inactive simvastatin 40 mg tablet RxNorm: 704227 1/2 Tablet(s) PO QHS 04/27/2011 03/17/2013 Inactive Vitamin C Oral RxNorm: Oral No Start Date 10/16/2016 Inactive Synthroid 25 mcg tablet RxNorm: 620492 Tablet(s) PO No Start Date 03/17/2013 Inactive coenzyme Q10 75 mg Cap RxNorm: 339308 1 Capsule(s) PO daily No Start Date 10/16/2016 Inactive Coreg 3.125 mg tablet RxNorm: 605629 1 Tablet(s) PO BID No Start Date 03/15/2012 Inactive simvastatin 40 mg Tab RxNorm: 410712 1 Tablet(s) PO QHS No Start Date 04/26/2011 Inactive aspirin 81 mg capsule,delayed release RxNorm: 885509 1 Capsule(s) PO daily No Start Date 10/16/2016 Inactive metoprolol succinate ER 50 mg tablet,extended release 24 hr RxNorm: 830913 1 Tablet(s) PO daily No Start Date 10/16/2016 Inactive lisinopril 20 mg tablet RxNorm: 167660 1 Tablet(s) PO as needed No Start Date 07/20/2017 Inactive Bystolic 5 mg Tab RxNorm: 064355 1 Tablet(s) PO daily No Start Date 10/30/2011 Inactive clobetasol 0.05 % Topical Cream RxNorm: 710144 TOP No Start Date 10/24/2012 Inactive omega-3 fatty acids 1,250 mg Cap RxNorm: 4162382 1 Capsule(s) PO daily No Start Date 10/16/2016 Inactive coenzyme Q10 oral RxNorm: 71558 oral No Start Date 06/13/2018 Inactive meclizine 12.5 mg Tab RxNorm: 734167 1/2-1 Tablet(s) PO Q6 PRN No Start Date 05/18/2014 Inactive promethazine 25 mg Rectal Suppository RxNorm: 393348 1 Suppository RTL Q6 PRN No Start Date 07/03/2012 Inactive nystatin 100,000 unit/gram Topical Powder RxNorm: 891923 Gram(s) TOP apply to affected area as needed No Start Date 03/21/2013 Inactive Medication Administered Medication Codes Instructions Start Date Status Kenalog 40 mg/mL suspension for injection RxNorm: 0524426 1Milliliter 02/03/2017 No longer Active Immunizations Vaccine [...] 41.8 % 10/28/2016 Cbc With Differential Ord2 [place]% 11.9 % 10/28/2016 Cbc With Differential Ord2 [...] 2.07 K/ul 10/28/2016 Cbc With Differential Ord2 [place] ABS# 0.6 K/ul 10/28/2016 Cbc With Differential Ord2 [place] ABS# 0.2 K/ul 10/28/2016 Cbc With Differential Ord2 Baso ABS# 0.1 K/ul 10/28/2016 Tsh Ord6 hTSH II 2.77 uIU/mL 10/28/2016 Comp Metabolic Cfx247 NA 138 mEq/L 10/28/2016 Comp Metabolic Xuo552 K 4.6 mEq/L 10/28/2016 Comp Metabolic Nax242 CL 104 mEq/L 10/28/2016 Comp Metabolic Kfw286 CO2 29.0 mEq/L 10/28/2016 Comp Metabolic Lwx216 ANION GAP 10 10/28/2016 Comp Metabolic Phv547 GLUCOSE 88 mg/dL 10/28/2016 Comp Metabolic Dsa344 Creat 0.9 mg/dL 10/28/2016 Comp Metabolic Fbx544 eGFR 60 ml/min/1.73m2 10/28/2016 Comp Metabolic Dde983 BUN 27 mg/dL 10/28/2016 Comp Metabolic Kqd446 B/C Ratio 28.7 Ratio 10/28/2016 Comp Metabolic Ntd372 CALCIUM 9.7 mg/dL 10/28/2016 Comp Metabolic Jld625 ALK PHOS 58 U/L 10/28/2016 Comp Metabolic Unm369 AST(SGOT) 20 U/L 10/28/2016 Comp Metabolic Lah996 ALT(SGPT) 14 U/L 10/28/2016 Comp Metabolic Kps922 BILI T 0.6 mg/dL 10/28/2016 Comp Metabolic Aru715 ALBUMIN 3.6 g/dL 10/28/2016 Comp Metabolic Azz388 TPRO 6.3 g/dL 10/28/2016 Comp Metabolic Drv664 GLOB 2.7 g/dL 10/28/2016 Comp Metabolic Xgt192 A/G Ratio 1.3 Ratio 10/28/2016 Comp Metabolic Vwk003 Osmo 280 mOsmo 10/28/2016 LIPID GRP HDL TEST 60 MG/DL 05/13/2015 LIPID GRP TRIG 100 MG/DL 05/13/2015 LIPID GRP TEST LDL 190 MG/DL 05/13/2015 LIPID GRP CHOL 270 MG/DL 05/13/2015 LIPID GRP RCHOL/HDL 4.50 RATIO 05/13/2015 LIPID GRP NON-HDL CH 210 MG/DL 05/13/2015 LIVER PNL 5134031 AST 29 U/L 05/13/2015 LIVER PNL 6814757 ALK PHOS 70 U/L 05/13/2015 LIVER PNL 7649270 BILI TOT 0.5 MG/DL 05/13/2015 LIVER PNL 0428772 ALT 27 IU/L 05/13/2015 LIVER PNL 1647057 BILI DIR 0.1 MG/DL 05/13/2015 LIVER PNL 2568916 ALBUMIN 3.8 GM/DL 05/13/2015 LIVER PNL 7044324 PROT TOT 7.3 GM/DL 05/13/2015 TSH 2144669 TSH 3.354 uIU/ML 07/24/2013 LIPID GRP HDL TEST 46 MG/DL 07/24/2013 LIPID GRP TRIG 86 MG/DL 07/24/2013 LIPID GRP TEST LDL 113 MG/DL 07/24/2013 LIPID GRP CHOL 176 MG/DL 07/24/2013 LIPID GRP RCHOL/HDL 3.83 RATIO 07/24/2013 CHEM 14 8540975 AST 25 U/L 07/24/2013 CHEM 14 3664545 ALT 20 IU/L 07/24/2013 CHEM 14 0463589 BUN 18 MG/DL 07/24/2013 CHEM 14 1940555 ALBUMIN 4.0 GM/DL 07/24/2013 CHEM 14 9150393 CHLORIDE 105 MMOL/L 07/24/2013 CHEM 14 5080974 BILI TOT 0.4 MG/DL 07/24/2013 CHEM 14 0646804 ALK PHOS 57 U/L 07/24/2013 CHEM 14 9577932 SODIUM 139 MMOL/L 07/24/2013 CHEM 14 2663006 CREATININE 0.83 MG/DL 07/24/2013 CHEM 14 0840166 CALCIUM 10.0 MG/DL 07/24/2013 CHEM 14 4813110 POTASSIUM 4.5 MMOL/L 07/24/2013 CHEM 14 0394227 PROT TOT 6.3 GM/DL 07/24/2013 CHEM 14 8504392 GLUCOSE 91 MG/DL 07/24/2013 CHEM 14 4558244 BICARB 28 MMOL/L 07/24/2013 CHEM 14 7604382 ANION GAP 6 MEQ/L 07/24/2013 FREE T4 7021297 FREE T4 1.17 NG/DL 07/24/2013 GFR CALC 4990081 GFR AA >60 ML/MIN 07/24/2013 GFR CALC 6270931 GFR NON-AA >60 ML/MIN 07/24/2013 CBC 9627528 WBC 5.7 10e9/L 07/24/2013 CBC 0687116 RBC 4.39 10e12/L 07/24/2013 CBC 4851674 HGB 13.6 g/dL 07/24/2013 CBC 6321936 HCT DET 41.7 % 07/24/2013 CBC 3585514 MCV 95.0 fL 07/24/2013 CBC 7971207 MCH 31.0 pg 07/24/2013 CBC 6714452 MCHC 32.6 g/dL 07/24/2013 CBC 9689018 PLT 341 10e9/L 07/24/2013 CBC 3152725 MPV 9.7 fL 07/24/2013 CBC 2143492 RORO % 37.9 % 07/24/2013 CBC 6071066 LY % 38.1 % 07/24/2013 CBC 1556321 MON % 12.0 % 07/24/2013 CBC 0683890 EOS % 9.9 % 07/24/2013 CBC 3404496 BASO % 2.1 % 07/24/2013 CBC 1636659 RDW 14.1 % 07/24/2013 CBC 8211259 ABS RORO 2.16 10e9/L 07/24/2013 CBC 0292188 ABS LYMPH 2.17 10e9/L 07/24/2013 CBC 9168439 ABS MONO 0.68 10e9/L 07/24/2013 CBC 7018567 ABS EOS 0.56 10e9/L 07/24/2013 CBC 7094674 ABS BASO 0.12 10e9/L 07/24/2013 CBC 7273623 RDW-SD 47.2 fL 07/24/2013 FREE T4 1760444 FREE T4 0.97 NG/DL 03/14/2013 TSH 0372661 TSH 6.175 uIU/ML 03/13/2013 LIPID GRP HDL TEST 51 MG/DL 03/13/2013 LIPID GRP TRIG 182 MG/DL 03/13/2013 LIPID GRP TEST LDL 191 MG/DL 03/13/2013 LIPID GRP CHOL 278 MG/DL 03/13/2013 LIPID GRP RCHOL/HDL 5.45 RATIO 03/13/2013 CHEM 14 8758106 AST 23 U/L 03/13/2013 CHEM 14 2732977 ALT 18 IU/L 03/13/2013 CHEM 14 8631298 BUN 21 MG/DL 03/13/2013 CHEM 14 5226276 ALBUMIN 4.1 GM/DL 03/13/2013 CHEM 14 1501062 CHLORIDE 107 MMOL/L 03/13/2013 CHEM 14 3471172 BILI TOT 0.4 MG/DL 03/13/2013 CHEM 14 1533065 ALK PHOS 57 U/L 03/13/2013 CHEM 14 2767945 SODIUM 140 MMOL/L 03/13/2013 CHEM 14 9388273 CREATININE 0.94 MG/DL 03/13/2013 CHEM 14 2299398 CALCIUM 9.8 MG/DL 03/13/2013 CHEM 14 8506189 POTASSIUM 4.4 MMOL/L 03/13/2013 CHEM 14 7587565 PROT TOT 6.1 GM/DL 03/13/2013 CHEM 14 8268523 GLUCOSE 90 MG/DL 03/13/2013 CHEM 14 2400425 BICARB 27 MMOL/L 03/13/2013 CHEM 14 7673107 ANION GAP 6 MEQ/L 03/13/2013 GFR CALC 3434981 GFR AA >60 ML/MIN 03/13/2013 GFR CALC 7895908 GFR NON-AA 57.0L ML/MIN 03/13/2013 CBC 4359217 WBC 4.9 10e9/L 07/02/2012 CBC 4323868 RBC 4.20 10e12/L 07/02/2012 CBC 1811179 HGB 13.3 g/dL 07/02/2012 CBC 5399523 HCT DET 40.2 % 07/02/2012 CBC 8601504 MCV 95.7 fL 07/02/2012 CBC 5998400 MCH 31.7 pg 07/02/2012 CBC 8311614 MCHC 33.1 g/dL 07/02/2012 CBC 5590492 PLT 317 10e9/L 07/02/2012 CBC 8420029 MPV 10.3 fL 07/02/2012 CBC 4109425 RORO % 40.1 % 07/02/2012 CBC 9843384 LY % 42.8 % 07/02/2012 CBC 3159285 MON % 12.0 % 07/02/2012 CBC 9941044 EOS % 4.3 % 07/02/2012 CBC 7290745 BASO % 0.8 % 07/02/2012 CBC 0222862 RDW 13.9 % 07/02/2012 CBC 6934621 ABS RORO 1.96 10e9/L 07/02/2012 CBC 5207800 ABS LYMPH 2.10 10e9/L 07/02/2012 CBC 1796614 ABS MONO 0.59 10e9/L 07/02/2012 CBC 9624586 ABS EOS 0.21 10e9/L 07/02/2012 CBC 2957648 ABS BASO 0.04 10e9/L 07/02/2012 CBC 8410045 RDW-SD 47.3 fL 07/02/2012 CHEM 14 0622979 AST 23 U/L 07/02/2012 CHEM 14 4313644 ALT 20 IU/L 07/02/2012 CHEM 14 4582171 BUN 14 MG/DL 07/02/2012 CHEM 14 5538978 ALBUMIN 3.8 GM/DL 07/02/2012 CHEM 14 6301752 CHLORIDE 108 MMOL/L 07/02/2012 CHEM 14 6768351 BILI TOT 0.4 MG/DL 07/02/2012 CHEM 14 3790097 ALK PHOS 66 U/L 07/02/2012 CHEM 14 5196414 SODIUM 143 MMOL/L 07/02/2012 CHEM 14 3802074 CREATININE 0.88 MG/DL 07/02/2012 CHEM 14 8827724 CALCIUM 9.7 MG/DL 07/02/2012 CHEM 14 0068739 POTASSIUM 4.6 MMOL/L 07/02/2012 CHEM 14 0226235 PROT TOT 6.4 GM/DL 07/02/2012 CHEM 14 9168903 GLUCOSE 87 MG/DL 07/02/2012 CHEM 14 7879572 BICARB 28 MMOL/L 07/02/2012 CHEM 14 2719749 ANION GAP 7 MEQ/L 07/02/2012 GFR CALC 3065706 GFR AA >60 ML/MIN 07/02/2012 GFR CALC 9743836 GFR NON-AA >60 ML/MIN 07/02/2012 FREE T4 6769519 FREE T4 1.10 NG/DL 07/02/2012 TSH 6177872 TSH 2.909 uIU/ML 07/02/2012 LIPID GRP HDL TEST 54 MG/DL 07/02/2012 LIPID GRP TRIG 102 MG/DL 07/02/2012 LIPID GRP TEST LDL 109 MG/DL 07/02/2012 LIPID GRP CHOL 183 MG/DL 07/02/2012 LIPID GRP RCHOL/HDL 3.39 RATIO 07/02/2012 URINALYSIS NONAUTO W/O SCOPE 01992 Specific [place] 1.005 DateTime(Free Text in Aprima) URINALYSIS NONAUTO W/O SCOPE 93751 PH 5.0 DateTime(Free Text in Aprima) URINALYSIS NONAUTO W/O SCOPE 99077 GLUCOSE NEG DateTime(Free Text in Aprima) URINALYSIS NONAUTO W/O SCOPE 11015 Protein NEG DateTime(Free Text in Aprima) URINALYSIS NONAUTO W/O SCOPE 81126 Blood NEG DateTime(Free Text in Aprima) URINALYSIS NONAUTO W/O SCOPE 03829 Bilirubin NEG DateTime(Free Text in Aprima) URINALYSIS NONAUTO W/O SCOPE 11026 Ketones NEG DateTime(Free Text in Aprima) URINALYSIS NONAUTO W/O SCOPE 28997 Urobilinogen NEG DateTime(Free Text in Aprima) URINALYSIS NONAUTO W/O SCOPE 56279 Nitrite NEG DateTime(Free Text in Aprima) URINALYSIS NONAUTO W/O SCOPE 66061 Leukocytes NEG DateTime(Free Text in Aprima) Review [...] INJ NOS CPT-4: J3301 02/03/2017 PAP CPT-4: 3706257 10/17/2016 ROUTINE VENIPUNCTURE CPT- 4: 88650 07/24/2013 ROUTINE VENIPUNCTURE CPT- 4: 96577 03/13/2013 PRESCRIP TRANSMIT VIA ERX SY CPT-4: G8553 10/25/2012 ROUTINE VENIPUNCTURE CPT- 4: 57859 07/02/2012 PRESCRIP TRANSMIT VIA ERX SY CPT-4: G8553 12/26/2011 ROUTINE VENIPUNCTURE CPT- 4: 92019 10/20/2011 URINALYSIS NONAUTO W/O SCOPE CPT-4: 56714 09/15/2011 PRESCRIP TRANSMIT VIA ERX SY CPT-4: G8553 09/15/2011 ROUTINE VENIPUNCTURE CPT- 4: 53380 06/07/2011 PRESCRIP TRANSMIT VIA ERX SY CPT-4: G8553 04/27/2011 Vital Signs Date Vital 06/14/2018 Blood Pressure 1: 142/76 Code: 8480-6 BMI: 33.0 Code: 55772-2 Heart Rate 1: 72 bpm Height: 5'4" SpO2: 97% Waist Measure (cm): 107 cm Weight: 195 lbs 09/19/2017 Blood Pressure 1: 148/70 Code: 8480-6 BMI: 33.3 Code: 29090-3 Heart Rate 1: 82 bpm Height: 5'4" SpO2: 98% Weight: 197 lbs 07/21/2017 Blood Pressure 1: 160/62 Code: 8480-6 Blood Pressure 1: 144/68 Code: 8480-6 BMI: 33.3 Code: 61231-5 Heart Rate 1: 75 bpm Height: 5'4" SpO2: 98% Weight: 197 lbs 02/06/2017 Blood Pressure 1: 142/84 Code: 8480-6 BMI: 32.1 Code: 87672-5 Heart Rate 1: 76 bpm Height: 5'4" SpO2: 96% Weight: 190 lbs 02/03/2017 Blood Pressure 1: 142/84 Code: 8480-6 BMI: 32.2 Code: 38334-0 Heart Rate 1: 76 bpm Height: 5'4" SpO2: 96% Weight: 190 lbs 8 oz 10/17/2016 Blood Pressure 1: 136/90 Code: 8480-6 BMI: 31.6 Code: 75113-7 Heart Rate 1: 76 bpm Height: 5'4" SpO2: 98% Weight: 187 lbs 07/14/2015 Blood Pressure 1: 150/80 Code: 8480-6 BMI: 31.1 Code: 95169-7 Heart Rate 1: 74 bpm Height: 5'4" SpO2: 95% Weight: 184 lbs 11/17/2014 Blood Pressure 1: 142/88 Code: 8480-6 BMI: 32.3 Code: 27823-2 Heart Rate 1: 72 bpm Height: 5'4" Weight: 191 lbs 05/19/2014 Blood Pressure 1: 136/74 Code: 8480-6 BMI: 32.8 Code: 08040-9 Heart Rate 1: 72 bpm Height: 5'4" Weight: 194 lbs 11/04/2013 Blood Pressure 1: 154/76 Code: 8480-6 BMI: 31.4 Code: 51127-0 Heart Rate 1: 76 bpm Height: 5'4" Weight: 186 lbs 08/05/2013 Blood Pressure 1: 150/78 Code: 8480-6 BMI: 30.9 Code: 10362-7 Heart Rate 1: 60 bpm Height: 5'4" Weight: 183 lbs 05/22/2013 Blood Pressure 1: 156/76 Code: 8480-6 BMI: 31.8 Code: 16567-4 Heart Rate 1: 72 bpm Height: 5'4" Weight: 188 lbs 02/20/2013 Blood Pressure 1: 138/78 Code: 8480-6 BMI: 32.1 Code: 52532-8 Heart Rate 1: 72 bpm Height: 5'4" Weight: 190 lbs 10/25/2012 Blood Pressure 1: 138/82 Code: 8480-6 BMI: 31.8 Code: 07717-1 Heart Rate 1: 72 bpm Height: 5'4" Weight: 188 lbs 07/04/2012 Blood Pressure 1: 136/70 Code: 8480-6 Heart Rate 1: 72 bpm Weight: 187 lbs 12/26/2011 Blood Pressure 1: 152/82 Code: 8480-6 BMI: 30.4 Code: 68949-3 Heart Rate 1: 78 bpm Height: 5'4" Respiratory Rate: 16 bpm Weight: 180 lbs 10/26/2011 Blood Pressure 1: 140/64 Code: 8480-6 Heart Rate 1: 64 bpm Weight: 181 lbs 8 oz 09/15/2011 Blood Pressure 1: 152/82 Code: 8480-6 BMI: 30.8 Code: 13513-3 Heart Rate 1: 60 bpm Height: 5'4" Temperature: 36.8 (C) / 98.3 (F) Weight: 182 lbs 06/07/2011 Blood Pressure 1: 154/80 Code: 8480-6 05/10/2011 Blood Pressure 1: 122/66 Code: 8480-6 BMI: 30.7 Code: 26347-1 Heart Rate 1: 66 bpm Height: 5'4" Respiratory Rate: 12 bpm Weight: 181 lbs 8 oz 04/27/2011 Blood Pressure 1: 136/70 Code: 8480-6 BMI: 30.6 Code: 73464-6 Heart Rate 1: 72 bpm Height: 5'4" [...] back pain[ICD10: M54.5] Katie Abdalla MD, [facility] CPT-4: 53553 09/19/2017 ([id number]) 45867 EST. PATIENT, LEVEL III Diagnosis: Essential (primary) hypertension[ICD10: I10] Diagnosis: Epigastric pain[ICD10: R10.13] Tori Abdalla MD, [facility] CPT-4: 92762 07/21/2017 ([id number]) 65619 EST. PATIENT, LEVEL III Diagnosis: Low back pain[ICD10: M54.5] Tori Abdalla MD, [facility] CPT-4: 27512 02/03/2017 ([id number]) 92441 EST. PATIENT, LEVEL IV Diagnosis: Encounter for gynecological examination (general) (routine) without abnormal findings[ICD10: Z01.419] Tori Abdalla MD, [facility] CPT-4: 26725 10/17/2016 [id number] EST. PATIENT, LEVEL III Diagnosis: Low back pain[ICD10: M54.5] Katie Abdalla MD, [facility] CPT-4: 91825 07/14/2015 ([id number]) 78415 EST. PATIENT, LEVEL III Diagnosis: ESSENTIAL HYPERTENSION[ICD9: 401.9] Marcela Abdalla MD, [facility] CPT- 4: 06747 11/17/2014 ([id number]) 25712 EST. PATIENT, LEVEL III Diagnosis: ESSENTIAL HYPERTENSION[ICD9: 401.9] Diagnosis: HYPERLIPIDEMIA[ICD9: 272.4] Diagnosis: HYPOTHYROIDISM[ICD9: 244.9] Marcela Abdalla MD, [facility] CPT-4: 91648 05/19/2014 ([id number]) 74700 EST. PATIENT, LEVEL IV Diagnosis: HYPOTHYROIDISM[ICD9: 244.9] Diagnosis: ESSENTIAL HYPERTENSION[SNOMED: 63618250] Marcela Abdalla MD, [facility] CPT-4: 71123 11/04/2013 ([id number]) 63562 EST. PATIENT, LEVEL III Diagnosis: ESSENTIAL HYPERTENSION[SNOMED: 51761056] Marcela Abdalla MD, [facility] CPT-4: 91456 08/05/2013 ([id number]) 38086 EST. PATIENT, LEVEL III Diagnosis: ESSENTIAL HYPERTENSION[SNOMED: 73606658] Marcela Abdalla MD [facility] CPT-4: 73676 05/22/2013 ([id number]) 24022 EST. PATIENT, LEVEL III Diagnosis: ESSENTIAL HYPERTENSION[SNOMED: 30330778] Marcela Abdalla MD [facility] CPT-4: 14180 02/20/2013 ([id number]) 63757 EST. PATIENT, LEVEL IV Diagnosis: ESSENTIAL HYPERTENSION[SNOMED: 11749179] Diagnosis: HYPERLIPIDEMIA[ICD9: 272.4] Diagnosis: NONSPECIF SKIN ERUPT NEC[ICD9: 782.1] Marcela Abdalla MD [facility] CPT-4: 03585 10/25/2012 ([id number]) 33818 EST. PATIENT, LEVEL IV Diagnosis: ESSENTIAL HYPERTENSION[SNOMED: 78535859] Diagnosis: HYPERLIPIDEMIA[ICD9: 272.4] Marcela Abdalla MD [facility] CPT-4: 24354 07/04/2012 ([id number]) 10636 EST. PATIENT, LEVEL IV Diagnosis: ESSENTIAL HYPERTENSION[SNOMED: 50770013] Diagnosis: HYPERLIPIDEMIA[ICD9: 272.4] Marcela Abdalla MD [facility] CPT-4: 61555 12/26/2011 ([id number]) 77364 EST. PATIENT, LEVEL IV Diagnosis: ESSENTIAL HYPERTENSION[SNOMED: 10218375] Diagnosis: HYPERLIPIDEMIA[ICD9: 272.4] Marcela Abdalla MD [facility] CPT-4: 13253 10/26/2011 ([id number]) 89277 EST. PATIENT, LEVEL IV Diagnosis: BPPV (benign paroxysmal positional vertigo)[ICD9: 386.11] Diagnosis: ESSENTIAL HYPERTENSION[SNOMED: 70868095] Tori Abdalla MD [facility] CPT-4: 23106 09/15/2011 18805 EST. PATIENT, LEVEL III Diagnosis: Lesion of oral mucosa[ICD9: 528.9] Diagnosis: Rash and nonspecific skin eruption[ICD9: 782.1] Marcela Abdalla MD [facility] CPT-4: 65023 05/10/2011 85110 EST. PATIENT, LEVEL IV Diagnosis: ESSENTIAL HYPERTENSION[SNOMED: 89484276] Diagnosis: Mouth sores[ICD9: 528.9] [facility] CPT-4: 20607 04/27/2011 Plan of Care Planned Activity Notes [...] 06/14/2018 Care Plan: Referral Order SNOMED-CT : 304446411 Pending 06/14/2018 Appointment: [facility] [place] [facility] [facility] - Annual Wellness Visit 02/12/2018 [...] not improve. 09/19/2017 Appointment: Katie Ellis [facility] [place] [facility] (30 min) Complex 09/19/2017 Patient Education: Patient [...] is to call for acute concerns. Epigastric nued-oyikylki-dmzpy prilosec daily-monitor symptoms and call if abdominal pain does not improve or if any worse 07/21/2017 Appointment: Tor[facility] [phone] [phone] ([place] min) [facility] 07/21/2017 Patient Education: Patient Medication Summary Completed [...] care surrogate. 02/06/2017 Appointment: [phone] [facility] [facility] - Annual Wellness Visit 02/06/2017 [...] office. 02/03/2017 Appointment: Tori Duvall WPtel: [phone] [phone] (30 min) Complex 02/03/2017 Patient Education: [...] mammogram 10/17/2016 Appointment: Tori Duvall WPtel: [phone] [phone] [facility] 10/17/2016 Patient Education: Patient [...] home. 11/17/2014 Appointment: Marcela Abdalla WPtel: [phone] [facility] Follow up 11/17/2014 Patient Education: Patient Medication [...] home. 05/19/2014 Appointment: Marcela Abdalla WPtel: [phone] [facility] Follow up 05/19/2014 Patient Education: Patient Medication [...] control. 11/04/2013 [phone] [facility] 11/04/2013 Patient Education: Patient Medication [...] at home. 08/05/2013 App[facility]ment[phone] [facility] [facility] 08/05/2013 Patient Education: Patient [...] home. 05/22/2013 [phone] [facility] [facility] 05/22/2013 Patient Education: Patient [...] blood pressure readings at home. 02/20/2013 App[facility]ment[phone] [facility] [facility] 02/20/2013 Patient Education: Patient [...] basis 10/25/2012 App[facility]ment[phone] [facility] [facility] 10/25/2012 Patient Education: Patient [...] to medications. 07/04/2012 Appointment: Marcela Abdalla WPtel: [phone] [facility] [facility] Patient Preventative visit 07/04/2012 Patient Education: Patient Medication Summary Completed 07/04/2012 Patient Education: 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 Completed 07/04/2012 Appointment: Marcela Abdalla WPtel: [phone] [facility] Lab Draw 07/02/2012 Patient Education: Patient Medication [...] medications. 12/26/2011 Appointment: Marcela Abdalla WPtel: [phone] [facility] [facility] 12/26/2011 Patient Education: Patient Medication Summary Completed [...] to medications. 10/26/2011 Appointment: Marcela Abdalla [facility]Ptel[facility] [facility] 10/26/2011 Patient Education: Patient Medication Summary Completed 10/26/2011 Patient Education: High Blood Pressure: Essential 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 Completed 10/26/2011 Appointment: Marcel[facility] Abdalla [facility]el[phone] [facility] 10/20/2011 Patient Education: Patient Medication [...] vision changes. 09/15/2011 Appointment: Tori Duvall WPtel: [facility]5 [phone] [place] Lab Draw 09/15/2011 Patient Education: Patient Medication Summary Completed 09/15/2011 Patient Education: .Amazing charts Paroxysmal positional vertigo Completed 09/15/2011 Patient Education: High Blood Pressure: Essential 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 Completed 09/15/2011 Appointment: Marcela Abdalla WPtel: [facility] [facility] 06/07/2011 Patient Education: Patient Medication [...] the rash. 05/10/2011 Appointment: Marcela Abdalla WPtel: [address] [place], [place] [phone] Other 05/10/2011 Patient Education: Patient Medication Summary Completed 05/10/2011 Appointment: Marcela Abdalla WPtel: [address] [place], [place] [phone] Follow up 05/04/2011 Visit Plan: HTN- improved from high blood pressure earlier this week No change in current medication. Try to avoid high salt containing foods. 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 - well controlled - pt [...] control. . 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 - well controlled - continue [...] to use on a continuous basis . Low back pain- the patient was [...] is to call for acute concerns. 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
--- OUTSIDE RECORDS SUMMARY | 2019-01-10 12:53 | XMS REPORT | CCD ---
Author Author [facility] Organization [facility] Address [address] [place] [address] Phone Care Team Providers Care Manager Gaming Name Role Phone PP Unavailable CCM Unavailable Summary Purpose Interface Exchange Insurance Providers Payer name Policy type / Coverage type Covered alliance party ID Effective Begin Date Effective End Date WPS Medicare Part B Medicare Part B [id number] Unknown Unknown [facility] Medicare Part B [id number] Unknown Unknown Family history Daughter Diagnosis Age [...] Unknown 04/27/2011 Number of children Unknown 4 [id number] 04/27/2011 Employment Unknown Retired 04/27/[address]: 691109730 Never smoker 04/27/[address]: 827226059 Never drinks alcohol 04/27/2011 Has the patient [...] Fill Instructions prednisone 20 mg tablet RxNorm: 568267 2 Tablet(s) PO daily 09/19/2017 09/23/2017 Inactive lisinopril 10 mg tablet RxNorm: 232396 1 Tablet(s) PO QPM 07/21/2017 01/16/2018 Inactive Kenalog 40 mg/mL suspension for injection RxNorm: 5515982 1 Milliliter(s) Inj 02/03/2017 02/03/2017 Inactive Zocor 10 mg tablet RxNorm: 864810 1 Tablet(s) PO daily 05/14/2015 05/13/2015 Inactive Zocor 10 mg tablet RxNorm: 298284 1 Tablet(s) PO daily 05/14/2015 05/06/2016 Inactive Zocor 10 mg tablet RxNorm: 853495 1 Tablet(s) PO daily 05/14/2015 05/07/2016 Inactive kshbqjfl-zqqsafidh-qnlpjeahq 3.5 mg/g-10,000 unit/g-0.5 %topical cream RxNorm: 5114179 3 gtts TOP TID 11/17/2014 11/26/2014 Inactive [SAVINGS FOR NON-COVERED DRUGS -- BIN:[id number], PCN: [id number], Group: XXXXX, ID# [id number], Questions: . THIS IS NOT INSURANCE.] simvastatin 40 mg tablet RxNorm: 908353 1/2 Tablet(s) PO QHS 10/09/2013 11/03/2013 Inactive Synthroid 25 mcg tablet RxNorm: 298036 1 Tablet(s) PO daily 08/19/2013 11/11/2014 Inactive clobetasol 0.05 % Topical Cream RxNorm: 554701 1 Application TOP TID PRN 04/05/2013 07/03/2013 Inactive nystatin 100,000 unit/gram Topical Powder RxNorm: 622680 Gram(s) TOP apply to affected area as needed 03/22/2013 10/16/2016 Inactive fluconazole 150 mg tablet RxNorm: 504109 1 Tablet(s) PO 03/19/2013 03/18/2013 Inactive take one at outbreak and then use nystatin powder (she has nystatin at home) fluconazole 150 mg tablet RxNorm: 191621 1 Tablet(s) PO 03/19/2013 03/25/2013 Inactive take one at outbreak and then use nystatin powder (she has nystatin at home) simvastatin 40 mg tablet RxNorm: 716897 1/2 Tablet(s) PO QHS 03/18/2013 07/15/2013 Inactive Synthroid 25 mcg tablet RxNorm: 700249 1 Tablet(s) PO daily 03/18/2013 08/14/2013 Inactive clobetasol 0.05 % Topical Cream RxNorm: 971403 1 Application TOP TID PRN 10/25/2012 01/22/2013 Inactive Coreg 3.125 mg tablet RxNorm: 329531 1 Tablet(s) PO BID 04/17/2012 07/03/2012 Inactive Coreg 3.125 mg tablet RxNorm: 333786 1 Tablet(s) PO BID 03/16/2012 04/14/2012 Inactive Diflucan 150 mg Tab RxNorm: 634799 1 Tablet(s) PO daily 12/26/2011 01/22/2012 Inactive simvastatin 40 mg tablet RxNorm: 572108 1/2 Tablet(s) PO QHS 04/27/2011 03/17/2013 Inactive Vitamin C Oral RxNorm: Oral No Start Date 10/16/2016 Inactive Synthroid 25 mcg tablet RxNorm: 124320 Tablet(s) PO No Start Date 03/17/2013 Inactive coenzyme Q10 75 mg Cap RxNorm: 575057 1 Capsule(s) PO daily No Start Date 10/16/2016 Inactive Coreg 3.125 mg tablet RxNorm: 449147 1 Tablet(s) PO BID No Start Date 03/15/2012 Inactive simvastatin 40 mg Tab RxNorm: 683784 1 Tablet(s) PO QHS No Start Date 04/26/2011 Inactive aspirin 81 mg capsule,delayed release RxNorm: 770590 1 Capsule(s) PO daily No Start Date 10/16/2016 Inactive metoprolol succinate ER 50 mg tablet,extended release 24 hr RxNorm: 133675 1 Tablet(s) PO daily No Start Date 10/16/2016 Inactive lisinopril 20 mg tablet RxNorm: 987687 1 Tablet(s) PO as needed No Start Date 07/20/2017 Inactive Bystolic 5 mg Tab RxNorm: 678534 1 Tablet(s) PO daily No Start Date 10/30/2011 Inactive clobetasol 0.05 % Topical Cream RxNorm: 222870 TOP No Start Date 10/24/2012 Inactive omega-3 fatty acids 1,250 mg Cap RxNorm: 0316966 1 Capsule(s) PO daily No Start Date 10/16/2016 Inactive coenzyme Q10 oral RxNorm: 26269 oral No Start Date 06/13/2018 Inactive meclizine 12.5 mg Tab RxNorm: 615334 1/2-1 Tablet(s) PO Q6 PRN No Start Date 05/18/2014 Inactive promethazine 25 mg Rectal Suppository RxNorm: 129778 1 Suppository RTL Q6 PRN No Start Date 07/03/2012 Inactive nystatin 100,000 unit/gram Topical Powder RxNorm: 996613 Gram(s) TOP apply to affected area as needed No Start Date 03/21/2013 Inactive Medication Administered Medication Codes Instructions Start Date Status Kenalog 40 mg/mL suspension for injection RxNorm: 6128023 1Milliliter 02/03/2017 No longer Active Immunizations Vaccine [...] 41.8 % 10/28/2016 Cbc With Differential Ord2 Coke% 11.9 % 10/28/2016 Cbc With Differential Ord2 [...] 2.07 K/ul 10/28/2016 Cbc With Differential Ord2 Coke ABS# 0.6 K/ul 10/28/2016 Cbc With Differential Ord2 Eos ABS# 0.2 K/ul 10/28/2016 Cbc With Differential Ord2 Baso ABS# 0.1 K/ul 10/28/2016 Tsh Ord6 hTSH II 2.77 uIU/mL 10/28/2016 Comp Metabolic Vgy803 NA 138 mEq/L 10/28/2016 Comp Metabolic Cqy042 K 4.6 mEq/L 10/28/2016 Comp Metabolic Eak812 CL 104 mEq/L 10/28/2016 Comp Metabolic Mys085 CO2 29.0 mEq/L 10/28/2016 Comp Metabolic Xcb611 ANION GAP 10 10/28/2016 Comp Metabolic Tdu574 GLUCOSE 88 mg/dL 10/28/2016 Comp Metabolic Gha940 Creat 0.9 mg/dL 10/28/2016 Comp Metabolic Idg586 eGFR 60 ml/min/1.73m2 10/28/2016 Comp Metabolic Vnz247 BUN 27 mg/dL 10/28/2016 Comp Metabolic Uta311 B/C Ratio 28.7 Ratio 10/28/2016 Comp Metabolic Wbi775 CALCIUM 9.7 mg/dL 10/28/2016 Comp Metabolic Hwm530 ALK PHOS 58 U/L 10/28/2016 Comp Metabolic Dfw444 AST(SGOT) 20 U/L 10/28/2016 Comp Metabolic Txv067 ALT(SGPT) 14 U/L 10/28/2016 Comp Metabolic Hbe152 BILI T 0.6 mg/dL 10/28/2016 Comp Metabolic Yiw331 ALBUMIN 3.6 g/dL 10/28/2016 Comp Metabolic Sne097 TPRO 6.3 g/dL 10/28/2016 Comp Metabolic Rbi140 GLOB 2.7 g/dL 10/28/2016 Comp Metabolic Hdc636 A/G Ratio 1.3 Ratio 10/28/2016 Comp Metabolic Ilq757 Osmo 280 mOsmo 10/28/2016 LIPID GRP HDL TEST 60 MG/DL 05/13/2015 LIPID GRP TRIG 100 MG/DL 05/13/2015 LIPID GRP TEST LDL 190 MG/DL 05/13/2015 LIPID GRP CHOL 270 MG/DL 05/13/2015 LIPID GRP RCHOL/HDL 4.50 RATIO 05/13/2015 LIPID GRP NON-HDL CH 210 MG/DL 05/13/2015 LIVER PNL 1616118 AST 29 U/L 05/13/2015 LIVER PNL 3235409 ALK PHOS 70 U/L 05/13/2015 LIVER PNL 8233140 BILI TOT 0.5 MG/DL 05/13/2015 LIVER PNL 7182023 ALT 27 IU/L 05/13/2015 LIVER PNL 0471998 BILI DIR 0.1 MG/DL 05/13/2015 LIVER PNL 2217424 ALBUMIN 3.8 GM/DL 05/13/2015 LIVER PNL 6686556 PROT TOT 7.3 GM/DL 05/13/2015 TSH 8519996 TSH 3.354 uIU/ML 07/24/2013 LIPID GRP HDL TEST 46 MG/DL 07/24/2013 LIPID GRP TRIG 86 MG/DL 07/24/2013 LIPID GRP TEST LDL 113 MG/DL 07/24/2013 LIPID GRP CHOL 176 MG/DL 07/24/2013 LIPID GRP RCHOL/HDL 3.83 RATIO 07/24/2013 CHEM 14 0824103 AST 25 U/L 07/24/2013 CHEM 14 8580429 ALT 20 IU/L 07/24/2013 CHEM 14 1616683 BUN 18 MG/DL 07/24/2013 CHEM 14 3513732 ALBUMIN 4.0 GM/DL 07/24/2013 CHEM 14 9902533 CHLORIDE 105 MMOL/L 07/24/2013 CHEM 14 0264153 BILI TOT 0.4 MG/DL 07/24/2013 CHEM 14 7155596 ALK PHOS 57 U/L 07/24/2013 CHEM 14 8356329 SODIUM 139 MMOL/L 07/24/2013 CHEM 14 8627805 CREATININE 0.83 MG/DL 07/24/2013 CHEM 14 8096213 CALCIUM 10.0 MG/DL 07/24/2013 CHEM 14 6236315 POTASSIUM 4.5 MMOL/L 07/24/2013 CHEM 14 3977391 PROT TOT 6.3 GM/DL 07/24/2013 CHEM 14 7673998 GLUCOSE 91 MG/DL 07/24/2013 CHEM 14 8688833 BICARB 28 MMOL/L 07/24/2013 CHEM 14 7173184 ANION GAP 6 MEQ/L 07/24/2013 FREE T4 8843139 FREE T4 1.17 NG/DL 07/24/2013 GFR CALC 6756023 GFR AA >60 ML/MIN 07/24/2013 GFR CALC 8246162 GFR NON-AA >60 ML/MIN 07/24/2013 CBC 7474325 WBC 5.7 10e9/L 07/24/2013 CBC 7141396 RBC 4.39 10e12/L 07/24/2013 CBC 4051036 HGB 13.6 g/dL 07/24/2013 CBC 5047542 HCT DET 41.7 % 07/24/2013 CBC 7462722 MCV 95.0 fL 07/24/2013 CBC 8326526 MCH 31.0 pg 07/24/2013 CBC 9432906 MCHC 32.6 g/dL 07/24/2013 CBC 6467424 PLT 341 10e9/L 07/24/2013 CBC 6739732 MPV 9.7 fL 07/24/2013 CBC 1332888 RORO % 37.9 % 07/24/2013 CBC 5224882 LY % 38.1 % 07/24/2013 CBC 7672394 MON % 12.0 % 07/24/2013 CBC 0122492 EOS % 9.9 % 07/24/2013 CBC 5983804 BASO % 2.1 % 07/24/2013 CBC 4982704 RDW 14.1 % 07/24/2013 CBC 1900534 ABS RORO 2.16 10e9/L 07/24/2013 CBC 7397535 ABS LYMPH 2.17 10e9/L 07/24/2013 CBC 3140452 ABS MONO 0.68 10e9/L 07/24/2013 CBC 3349464 ABS EOS 0.56 10e9/L 07/24/2013 CBC 9308715 ABS BASO 0.12 10e9/L 07/24/2013 CBC 6315522 RDW-SD 47.2 fL 07/24/2013 FREE T4 3578598 FREE T4 0.97 NG/DL 03/14/2013 TSH 2640689 TSH 6.175 uIU/ML 03/13/2013 LIPID GRP HDL TEST 51 MG/DL 03/13/2013 LIPID GRP TRIG 182 MG/DL 03/13/2013 LIPID GRP TEST LDL 191 MG/DL 03/13/2013 LIPID GRP CHOL 278 MG/DL 03/13/2013 LIPID GRP RCHOL/HDL 5.45 RATIO 03/13/2013 CHEM 14 5892100 AST 23 U/L 03/13/2013 CHEM 14 6173708 ALT 18 IU/L 03/13/2013 CHEM 14 4267568 BUN 21 MG/DL 03/13/2013 CHEM 14 9952874 ALBUMIN 4.1 GM/DL 03/13/2013 CHEM 14 9017349 CHLORIDE 107 MMOL/L 03/13/2013 CHEM 14 4158958 BILI TOT 0.4 MG/DL 03/13/2013 CHEM 14 6218962 ALK PHOS 57 U/L 03/13/2013 CHEM 14 0490043 SODIUM 140 MMOL/L 03/13/2013 CHEM 14 1090559 CREATININE 0.94 MG/DL 03/13/2013 CHEM 14 9235588 CALCIUM 9.8 MG/DL 03/13/2013 CHEM 14 7711881 POTASSIUM 4.4 MMOL/L 03/13/2013 CHEM 14 8812186 PROT TOT 6.1 GM/DL 03/13/2013 CHEM 14 6207396 GLUCOSE 90 MG/DL 03/13/2013 CHEM 14 4585073 BICARB 27 MMOL/L 03/13/2013 CHEM 14 7889191 ANION GAP 6 MEQ/L 03/13/2013 GFR CALC 1840914 GFR AA >60 ML/MIN 03/13/2013 GFR CALC 2891866 GFR NON-AA 57.0L ML/MIN 03/13/2013 CBC 6742327 WBC 4.9 10e9/L 07/02/2012 CBC 3674225 RBC 4.20 10e12/L 07/02/2012 CBC 6088227 HGB 13.3 g/dL 07/02/2012 CBC 2951361 HCT DET 40.2 % 07/02/2012 CBC 4098902 MCV 95.7 fL 07/02/2012 CBC 7785073 MCH 31.7 pg 07/02/2012 CBC 7695782 MCHC 33.1 g/dL 07/02/2012 CBC 4359973 PLT 317 10e9/L 07/02/2012 CBC 4220590 MPV 10.3 fL 07/02/2012 CBC 1185404 RORO % 40.1 % 07/02/2012 CBC 1508500 LY % 42.8 % 07/02/2012 CBC 2569536 MON % 12.0 % 07/02/2012 CBC 3052678 EOS % 4.3 % 07/02/2012 CBC 7585996 BASO % 0.8 % 07/02/2012 CBC 6544695 RDW 13.9 % 07/02/2012 CBC 6540845 ABS RORO 1.96 10e9/L 07/02/2012 CBC 9133844 ABS LYMPH 2.10 10e9/L 07/02/2012 CBC 9594561 ABS MONO 0.59 10e9/L 07/02/2012 CBC 3257553 ABS EOS 0.21 10e9/L 07/02/2012 CBC 9694635 ABS BASO 0.04 10e9/L 07/02/2012 CBC 4375174 RDW-SD 47.3 fL 07/02/2012 CHEM 14 0787832 AST 23 U/L 07/02/2012 CHEM 14 7637512 ALT 20 IU/L 07/02/2012 CHEM 14 2692512 BUN 14 MG/DL 07/02/2012 CHEM 14 1915967 ALBUMIN 3.8 GM/DL 07/02/2012 CHEM 14 6000000 CHLORIDE 108 MMOL/L 07/02/2012 CHEM 14 1503339 BILI TOT 0.4 MG/DL 07/02/2012 CHEM 14 1445245 ALK PHOS 66 U/L 07/02/2012 CHEM 14 7922191 SODIUM 143 MMOL/L 07/02/2012 CHEM 14 6514232 CREATININE 0.88 MG/DL 07/02/2012 CHEM 14 0367143 CALCIUM 9.7 MG/DL 07/02/2012 CHEM 14 8360944 POTASSIUM 4.6 MMOL/L 07/02/2012 CHEM 14 2388871 PROT TOT 6.4 GM/DL 07/02/2012 CHEM 14 4176961 GLUCOSE 87 MG/DL 07/02/2012 CHEM 14 4884577 BICARB 28 MMOL/L 07/02/2012 CHEM 14 5121354 ANION GAP 7 MEQ/L 07/02/2012 GFR CALC 2113942 GFR AA >60 ML/MIN 07/02/2012 GFR CALC 8210315 GFR NON-AA >60 ML/MIN 07/02/2012 FREE T4 2722085 FREE T4 1.10 NG/DL 07/02/2012 TSH 0159115 TSH 2.909 uIU/ML 07/02/2012 LIPID GRP HDL TEST 54 MG/DL 07/02/2012 LIPID GRP TRIG 102 MG/DL 07/02/2012 LIPID GRP TEST LDL 109 MG/DL 07/02/2012 LIPID GRP CHOL 183 MG/DL 07/02/2012 LIPID GRP RCHOL/HDL 3.39 RATIO 07/02/2012 URINALYSIS NONAUTO W/O SCOPE 36008 Specific [place] 1.005 DateTime(Free Text in Aprima) URINALYSIS NONAUTO W/O SCOPE 42640 PH 5.0 DateTime(Free Text in Aprima) URINALYSIS NONAUTO W/O SCOPE 97692 GLUCOSE NEG DateTime(Free Text in Aprima) URINALYSIS NONAUTO W/O SCOPE 60178 Protein NEG DateTime(Free Text in Aprima) URINALYSIS NONAUTO W/O SCOPE 77354 Blood NEG DateTime(Free Text in Aprima) URINALYSIS NONAUTO W/O SCOPE 02681 Bilirubin NEG DateTime(Free Text in Aprima) URINALYSIS NONAUTO W/O SCOPE 53166 Ketones NEG DateTime(Free Text in Aprima) URINALYSIS NONAUTO W/O SCOPE 19239 Urobilinogen NEG DateTime(Free Text in Aprima) URINALYSIS NONAUTO W/O SCOPE 34797 Nitrite NEG DateTime(Free Text in Aprima) URINALYSIS NONAUTO W/O SCOPE 78604 Leukocytes NEG DateTime(Free Text in Aprima) Review [...] INJ NOS CPT-4: J3301 02/03/2017 PAP CPT-4: 3902648 10/17/2016 ROUTINE VENIPUNCTURE CPT- 4: 56874 07/24/2013 ROUTINE VENIPUNCTURE CPT- 4: 23883 03/13/2013 PRESCRIP TRANSMIT VIA ERX SY CPT-4: G8553 10/25/2012 ROUTINE VENIPUNCTURE CPT- 4: 19550 07/02/2012 PRESCRIP TRANSMIT VIA ERX SY CPT-4: G8553 12/26/2011 ROUTINE VENIPUNCTURE CPT- 4: 18235 10/20/2011 URINALYSIS NONAUTO W/O SCOPE CPT-4: 15244 09/15/2011 PRESCRIP TRANSMIT VIA ERX SY CPT-4: G8553 09/15/2011 ROUTINE VENIPUNCTURE CPT- 4: 54495 06/07/2011 PRESCRIP TRANSMIT VIA ERX SY CPT-4: G8553 04/27/2011 Vital Signs Date Vital 06/14/2018 Blood Pressure 1: 142/76 Code: 8480-6 BMI: 33.0 Code: 52178-3 Heart Rate 1: 72 bpm Height: 5'4" SpO2: 97% Waist Measure (cm): 107 cm Weight: 195 lbs 09/19/2017 Blood Pressure 1: 148/70 Code: 8480-6 BMI: 33.3 Code: 07747-2 Heart Rate 1: 82 bpm Height: 5'4" SpO2: 98% Weight: 197 lbs 07/21/2017 Blood Pressure 1: 160/62 Code: 8480-6 Blood Pressure 1: 144/68 Code: 8480-6 BMI: 33.3 Code: 27266-6 Heart Rate 1: 75 bpm Height: 5'4" SpO2: 98% Weight: 197 lbs 02/06/2017 Blood Pressure 1: 142/84 Code: 8480-6 BMI: 32.1 Code: 15544-2 Heart Rate 1: 76 bpm Height: 5'4" SpO2: 96% Weight: 190 lbs 02/03/2017 Blood Pressure 1: 142/84 Code: 8480-6 BMI: 32.2 Code: 47751-7 Heart Rate 1: 76 bpm Height: 5'4" SpO2: 96% Weight: 190 lbs 8 oz 10/17/2016 Blood Pressure 1: 136/90 Code: 8480-6 BMI: 31.6 Code: 75078-0 Heart Rate 1: 76 bpm Height: 5'4" SpO2: 98% Weight: 187 lbs 07/14/2015 Blood Pressure 1: 150/80 Code: 8480-6 BMI: 31.1 Code: 99696-6 Heart Rate 1: 74 bpm Height: 5'4" SpO2: 95% Weight: 184 lbs 11/17/2014 Blood Pressure 1: 142/88 Code: 8480-6 BMI: 32.3 Code: 62142-9 Heart Rate 1: 72 bpm Height: 5'4" Weight: 191 lbs 05/19/2014 Blood Pressure 1: 136/74 Code: 8480-6 BMI: 32.8 Code: 47271-8 Heart Rate 1: 72 bpm Height: 5'4" Weight: 194 lbs 11/04/2013 Blood Pressure 1: 154/76 Code: 8480-6 BMI: 31.4 Code: 85064-0 Heart Rate 1: 76 bpm Height: 5'4" Weight: 186 lbs 08/05/2013 Blood Pressure 1: 150/78 Code: 8480-6 BMI: 30.9 Code: 57257-2 Heart Rate 1: 60 bpm Height: 5'4" Weight: 183 lbs 05/22/2013 Blood Pressure 1: 156/76 Code: 8480-6 BMI: 31.8 Code: 59744-3 Heart Rate 1: 72 bpm Height: 5'4" Weight: 188 lbs 02/20/2013 Blood Pressure 1: 138/78 Code: 8480-6 BMI: 32.1 Code: 31953-4 Heart Rate 1: 72 bpm Height: 5'4" Weight: 190 lbs 10/25/2012 Blood Pressure 1: 138/82 Code: 8480-6 BMI: 31.8 Code: 16426-4 Heart Rate 1: 72 bpm Height: 5'4" Weight: 188 lbs 07/04/2012 Blood Pressure 1: 136/70 Code: 8480-6 Heart Rate 1: 72 bpm Weight: 187 lbs 12/26/2011 Blood Pressure 1: 152/82 Code: 8480-6 BMI: 30.4 Code: 44025-0 Heart Rate 1: 78 bpm Height: 5'4" Respiratory Rate: 16 bpm Weight: 180 lbs 10/26/2011 Blood Pressure 1: 140/64 Code: 8480-6 Heart Rate 1: 64 bpm Weight: 181 lbs 8 oz 09/15/2011 Blood Pressure 1: 152/82 Code: 8480-6 BMI: 30.8 Code: 69340-0 Heart Rate 1: 60 bpm Height: 5'4" Temperature: 36.8 (C) / 98.3 (F) Weight: 182 lbs 06/07/2011 Blood Pressure 1: 154/80 Code: 8480-6 05/10/2011 Blood Pressure 1: 122/66 Code: 8480-6 BMI: 30.7 Code: 58669-0 Heart Rate 1: 66 bpm Height: 5'4" Respiratory Rate: 12 bpm Weight: 181 lbs 8 oz 04/27/2011 Blood Pressure 1: 136/70 Code: 8480-6 BMI: 30.6 Code: 71297-8 Heart Rate 1: 72 bpm Height: 5'4" [...] Low back pain[ICD10: M54.5] Katie Abdalla MD, [facility] CPT-4: 35149 09/19/2017 ([id number]) 93683 EST. PATIENT, LEVEL III Diagnosis: Essential (primary) hypertension[ICD10: I10] Diagnosis: Epigastric pain[ICD10: R10.13] Tori Abdalla MD, [facility] CPT-4: 14093 07/21/2017 ([id number]) 01279 EST. PATIENT, LEVEL III Diagnosis: Low back pain[ICD10: M54.5] Tori Abdalla MD, [facility] CPT-4: 74909 02/03/2017 ([id number]) 41104 EST. PATIENT, LEVEL IV Diagnosis: Encounter for gynecological examination (general) (routine) without abnormal findings[ICD10: Z01.419] Tori Abdalla MD, [facility] CPT-4: 18020 10/17/2016 13605 EST. PATIENT, LEVEL III Diagnosis: Low back pain[ICD10: M54.5] Katie Abdalla MD, [facility] CPT-4: 26467 07/14/2015 ([id number]) 61223 EST. PATIENT, LEVEL III Diagnosis: ESSENTIAL HYPERTENSION[ICD9: 401.9] Marcela Abdalla MD, [facility] CPT- 4: 63033 11/17/2014 ([id number]) 81932 EST. PATIENT, LEVEL III Diagnosis: ESSENTIAL HYPERTENSION[ICD9: 401.9] Diagnosis: HYPERLIPIDEMIA[ICD9: 272.4] Diagnosis: HYPOTHYROIDISM[ICD9: 244.9] Marcela Abdalla MD, [facility] CPT-4: 70589 05/19/2014 ([id number]) 47120 EST. PATIENT, LEVEL IV Diagnosis: HYPOTHYROIDISM[ICD9: 244.9] Diagnosis: ESSENTIAL HYPERTENSION[SNOMED: 18816267] Marcela Abdalla MD, [facility] CPT-4: 97995 11/04/2013 ([id number]) 31047 EST. PATIENT, LEVEL III Diagnosis: ESSENTIAL HYPERTENSION[SNOMED: 83194939] Marcela Abdalla MD, [facility] CPT-4: 36868 08/05/2013 ([id number]) 86797 EST. PATIENT, LEVEL III Diagnosis: ESSENTIAL HYPERTENSION[SNOMED: 23508033] Marcela Abdalla MD [facility] CPT-4: 32996 05/22/2013 ([id number]) 83146 EST. PATIENT, LEVEL III Diagnosis: ESSENTIAL HYPERTENSION[SNOMED: 20399974] Marcela Abdalla MD [facility] CPT-4: 90055 02/20/2013 ([id number]) 37081 EST. PATIENT, LEVEL IV Diagnosis: ESSENTIAL HYPERTENSION[SNOMED: 64390101] Diagnosis: HYPERLIPIDEMIA[ICD9: 272.4] Diagnosis: NONSPECIF SKIN ERUPT NEC[ICD9: 782.1] Marcela Abdalla MD [facility] CPT-4: 94130 10/25/2012 ([id number]) 38410 EST. PATIENT, LEVEL IV Diagnosis: ESSENTIAL HYPERTENSION[SNOMED: 97183176] Diagnosis: HYPERLIPIDEMIA[ICD9: 272.4] Marcela Abdalla MD [facility] CPT-4: 22518 07/04/2012 ([id number]) 73272 EST. PATIENT, LEVEL IV Diagnosis: ESSENTIAL HYPERTENSION[SNOMED: 62522047] Diagnosis: HYPERLIPIDEMIA[ICD9: 272.4] Marcela Abdalla MD [facility] CPT-4: 42570 12/26/2011 ([id number]) 20630 EST. PATIENT, LEVEL IV Diagnosis: ESSENTIAL HYPERTENSION[SNOMED: 41198643] Diagnosis: HYPERLIPIDEMIA[ICD9: 272.4] Marcela Abdalla MD [facility] CPT-4: 65765 10/26/2011 ([id number]) 78804 EST. PATIENT, LEVEL IV Diagnosis: BPPV (benign paroxysmal positional vertigo)[ICD9: 386.11] Diagnosis: ESSENTIAL HYPERTENSION[SNOMED: 16801819] Tori Abdalla MD [facility] CPT-4: 97004 09/15/2011 22315 EST. PATIENT, LEVEL III Diagnosis: Lesion of oral mucosa[ICD9: 528.9] Diagnosis: Rash and nonspecific skin eruption[ICD9: 782.1] Marcela Abdalla MD [facility] CPT-4: 35716 05/10/2011 50174 EST. PATIENT, LEVEL IV Diagnosis: ESSENTIAL HYPERTENSION[SNOMED: 47107115] Diagnosis: Mouth sores[ICD9: 528.9] [facility] CPT-4: 80386 04/27/2011 Plan of Care Planned Activity Notes [...] 06/14/2018 Care Plan: Referral Order SNOMED-CT : [id number] Pending 06/14/2018 Appointment: Katie Ellis WPtel: [facility] [place] [facility] - Annual Wellness Visit 02/12/2018 Visit [...] improve. 09/19/2017 Appointment: Katie Ellis WPtel: [facility] [place] (30 min) Complex 09/19/2017 Patient Education: [...] is to call for acute concerns. Epigastric lsck-aytzedxw-hshxr prilosec daily-monitor symptoms and call if abdominal pain does not improve or if any worse 07/21/2017 Appointment: Tori Duvall [facility]Ptel[facility] [phone] [facility] (30 min) [facility] 07/21/2017 Patient Education: Patient Medication Summary Completed [...] care surrogate. 02/06/2017 Appointment: [facility] Ellis [facility]el[facility] [phone] [facility] [facility] - Annual Wellness Visit 02/06/2017 Patient [...] office. 02/03/2017 Appointment: Tori Duvall WPtel: [phone] [phone] (30 min) Complex 02/03/2017 Patient Education: [...] mammogram 10/17/2016 Appointment: Tori Duvall WPtel: [phone] [phone] [facility] 10/17/2016 Patient Education: Patient [...] home. 11/17/2014 Appointment: Marcela Abdalla WPtel: [phone] [facility] Follow up 11/17/2014 Patient Education: Patient [...] home. 05/19/2014 Appointment: Marcela Abdalla WPtel: [phone] [facility] Follow up 05/19/2014 Patient Education: Patient [...] control. 11/04/2013 [facility]ment[facility] [phone] [facility] Follow up 11/04/2013 Patient Education: Patient [...] at home. 08/05/2013 Appointment: Marcel[facility]el[facility] [phone] [facility] Follow up 08/05/2013 Patient Education: Patient [...] home. 05/22/2013 Appointment: [facility] [phone] [facility] Follow up 05/22/2013 Patient Education: Patient [...] home. 02/20/2013 Appointment: Lianne [facility]el[facility] [phone] [facility] Follow up 02/20/2013 Patient Education: Patient [...] continuous basis 10/25/2012 Appointment: Marcel[facility] Abdalla [facility]el[facility] [phone] [facility] Follow [facility] 10/25/2012 Patient Education: Patient [...] to medications. 07/04/2012 Appointment: Marcela Abdalla WPtel: [phone] [facility] [facility] Patient Preventative visit 07/04/2012 Patient Education: Patient Medication Summary Completed 07/04/2012 Patient Education: 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 Completed 07/04/2012 Appointment: Marcela Abdalla WPtel: [phone] [facility] Lab Draw 07/02/2012 Patient Education: Patient [...] medications. 12/26/2011 Appointment: Marcela Abdalla WPtel: [phone] [facility] [facility] 12/26/2011 Patient Education: Patient Medication Summary [...] medications. 10/26/2011 Appointment: Marcela Abdalla WPtel: [facility] [id number] Other 10/26/2011 Patient Education: Patient Medication Summary Completed 10/26/2011 Patient Education: High Blood Pressure: Essential 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 Completed 10/26/2011 App[facility]ment: [id number] [facility] 10/20/2011 Patient Education: Patient [...] changes. 09/15/2011 Appointment: Tori Duvall WPtel: [facility] [id number] [place] Lab Draw 09/15/2011 Patient Education: Patient Medication Summary Completed 09/15/2011 Patient Education: .Amazing charts Paroxysmal positional vertigo Completed 09/15/2011 Patient Education: High Blood Pressure: Essential 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 Completed 09/15/2011 Appointment: Marcela Abdalla WPtel: [facility] [id number] Lab Draw 06/07/2011 Patient Education: Patient [...] the rash. 05/10/2011 Appointment: Marcela Abdalla WPtel: [address] [place], [place] [phone] Other 05/10/2011 Patient Education: Patient Medication Summary Completed 05/10/2011 Appointment: Marcela Abdalla WPtel: [address] [place], [place] [phone] Follow up 05/04/2011 Visit Plan: HTN- improved from high blood pressure earlier this week No change in current medication. Try to avoid high salt containing foods. 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
--- OUTSIDE RECORDS SUMMARY | 2019-01-10 12:55 | XMS REPORT | CCD ---
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 Role Phone PP Unavailable CCM Unavailable Summary Purpose Interface Exchange Insurance Providers Payer name Policy type / Coverage type Covered libertarian ID Effective Begin Date Effective End Date WPS Medicare Part B Medicare Part B [id number] Unknown Unknown [facility] Medicare Part B [id number] Unknown Unknown Family history Daughter Diagnosis Age [...] Unknown 04/27/2011 Number of children Unknown 4 [id number] 04/27/2011 Employment Unknown Retired 04/27/[address]: 725093127 Never smoker 04/27/[address]: 067921224 Never drinks alcohol 04/27/2011 Has the patient ever used illegal drugs? Unknown Has never used illegal drugs 04/27/2011 Allergies, Adverse Reactions, Alerts Allergies, Adverse Reactions, Alerts data not found Past Medical History Illness Codes Condition Status Onset Date Resolved Date Low back pain ICD-9: 724.2 ICD-10: M54.5 Active 07/13/2015 Unknown Epigastric pain ICD-9: 789.06 ICD-10: R10.13 Active 07/21/2017 Unknown Essential (primary) hypertension ICD-9: 401.9 ICD-10: I10 Active 07/21/2017 Unknown Encounter for general adult medical examination with abnormal findings ICD-9: V70.0 ICD-10: Z00.01 Active 02/06/2017 Unknown Encounter for gynecological examination (general) (routine) [...] pain ICD-9: 789.06 ICD-10: R10.13 07/21/2017 Active Essential (primary) hypertension ICD-9: 401.9 ICD-10: I10 07/21/2017 Active Encounter for general adult medical examination with abnormal findings ICD-9: V70.0 ICD-10: Z00.01 02/06/2017 Active Encounter for gynecological examination (general) (routine) [...] Fill Instructions prednisone 20 mg tablet RxNorm: 093606 2 Tablet(s) PO daily 09/19/2017 09/23/2017 Active lisinopril 10 mg tablet RxNorm: 317002 1 Tablet(s) PO QPM 07/21/2017 01/16/2018 Active Kenalog 40 mg/mL suspension for injection RxNorm: 6017745 1 Milliliter(s) Inj 02/03/2017 02/03/2017 Inactive Zocor 10 mg tablet RxNorm: 701249 1 Tablet(s) PO daily 05/14/2015 05/13/2015 Inactive Zocor 10 mg tablet RxNorm: 804431 1 Tablet(s) PO daily 05/14/2015 05/06/2016 Inactive Zocor 10 mg tablet RxNorm: 074383 1 Tablet(s) PO daily 05/14/2015 05/07/2016 Inactive jjlzsscn-mzelwkyha-przxikmxb 3.5 mg/g-10,000 unit/g-0.5 %topical cream RxNorm: 7782114 3 gtts TOP TID 11/17/2014 11/26/2014 Inactive [SAVINGS FOR NON-COVERED DRUGS -- BIN:[id number], PCN: [id number], Group: [id number], ID# [id number], Questions: . THIS IS NOT INSURANCE.] simvastatin 40 mg tablet RxNorm: 077027 1/2 Tablet(s) PO QHS 10/09/2013 11/03/2013 Inactive Synthroid 25 mcg tablet RxNorm: 146841 1 Tablet(s) PO daily 08/19/2013 11/11/2014 Inactive clobetasol 0.05 % Topical Cream RxNorm: 585909 1 Application TOP TID PRN 04/05/2013 07/03/2013 Inactive nystatin 100,000 unit/gram Topical Powder RxNorm: 840975 Gram(s) TOP apply to affected area as needed 03/22/2013 10/16/2016 Inactive fluconazole 150 mg tablet RxNorm: 244981 1 Tablet(s) PO 03/19/2013 03/18/2013 Inactive take one at outbreak and then use nystatin powder (she has nystatin at home) fluconazole 150 mg tablet RxNorm: 942233 1 Tablet(s) PO 03/19/2013 03/25/2013 Inactive take one at outbreak and then use nystatin powder (she has nystatin at home) simvastatin 40 mg tablet RxNorm: 231464 1/2 Tablet(s) PO QHS 03/18/2013 07/15/2013 Inactive Synthroid 25 mcg tablet RxNorm: 267160 1 Tablet(s) PO daily 03/18/2013 08/14/2013 Inactive clobetasol 0.05 % Topical Cream RxNorm: 485430 1 Application TOP TID PRN 10/25/2012 01/22/2013 Inactive Coreg 3.125 mg tablet RxNorm: 771378 1 Tablet(s) PO BID 04/17/2012 07/03/2012 Inactive Coreg 3.125 mg tablet RxNorm: 155436 1 Tablet(s) PO BID 03/16/2012 04/14/2012 Inactive Diflucan 150 mg Tab RxNorm: 211063 1 Tablet(s) PO daily 12/26/2011 01/22/2012 Inactive simvastatin 40 mg tablet RxNorm: 110437 1/2 Tablet(s) PO QHS 04/27/2011 03/17/2013 Inactive coenzyme Q10 oral RxNorm: 09300 oral No Start Date Active Vitamin C Oral RxNorm: Oral No Start Date 10/16/2016 Inactive Synthroid 25 mcg tablet RxNorm: 857768 Tablet(s) PO No Start Date 03/17/2013 Inactive coenzyme Q10 75 mg Cap RxNorm: 318784 1 Capsule(s) PO daily No Start Date 10/16/2016 Inactive Coreg 3.125 mg tablet RxNorm: 808718 1 Tablet(s) PO BID No Start Date 03/15/2012 Inactive simvastatin 40 mg Tab RxNorm: 679903 1 Tablet(s) PO QHS No Start Date 04/26/2011 Inactive aspirin 81 mg capsule,delayed release RxNorm: 744082 1 Capsule(s) PO daily No Start Date 10/16/2016 Inactive metoprolol succinate ER 50 mg tablet,extended release 24 hr RxNorm: 384918 1 Tablet(s) PO daily No Start Date 10/16/2016 Inactive lisinopril 20 mg tablet RxNorm: 495988 1 Tablet(s) PO as needed No Start Date 07/20/2017 Inactive Bystolic 5 mg Tab RxNorm: 400862 1 Tablet(s) PO daily No Start Date 10/30/2011 Inactive clobetasol 0.05 % Topical Cream RxNorm: 549713 TOP No Start Date 10/24/2012 Inactive omega-3 fatty acids 1,250 mg Cap RxNorm: 2973167 1 Capsule(s) PO daily No Start Date 10/16/2016 Inactive meclizine 12.5 mg Tab RxNorm: 013213 1/2-1 Tablet(s) PO Q6 PRN No Start Date 05/18/2014 Inactive promethazine 25 mg Rectal Suppository RxNorm: 329643 1 Suppository RTL Q6 PRN No Start Date 07/03/2012 Inactive nystatin 100,000 unit/gram Topical Powder RxNorm: 572574 Gram(s) TOP apply to affected area as needed No Start Date 03/21/2013 Inactive Medication Administered Medication Codes Instructions Start Date Status Kenalog 40 mg/mL suspension for injection RxNorm: 1331530 1Milliliter 02/03/2017 No longer Active Immunizations Vaccine Codes Date Status Influenza CVX: 141 05/22/2013 completed Assessments Condition Codes Effective Dates Low back pain ICD-10: M54.5 ICD-9: 724.2 09/19/2017 Epigastric pain ICD-10: R10.13 ICD-9: 789.06 07/21/2017 Essential (primary) hypertension ICD-10: I10 ICD-9: 401.9 07/21/2017 Encounter for general adult medical examination with abnormal findings ICD-10: Z00.01 ICD-9: V70.0 02/06/2017 Encounter for gynecological examination (general) (routine) without [...] Visit Reason For Visit Effective Dates Notes low back pain 09/19/2017 hypertension 07/21/2017 Annual [...] 31.1 pg 10/28/2016 Cbc With Differential Ord2 Mclean% 11.9 % 10/28/2016 Cbc With Differential Ord2 MCHC 32.7 pg 10/28/2016 Cbc With Differential Ord2 Eos% 4.8 % 10/28/2016 Cbc With Differential Ord2 PLT 300 K/ul 10/28/2016 Cbc With Differential Ord2 Baso% 1.0 % 10/28/2016 Cbc With Differential Ord2 Neut ABS# 2.00 K/ul 10/28/2016 Cbc With Differential Ord2 RDW 15.1 % 10/28/2016 Cbc With Differential Ord2 Lymph ABS# 2.07 K/ul 10/28/2016 Cbc With Differential Ord2 Mclean ABS# 0.6 K/ul 10/28/2016 Cbc With Differential Ord2 Eos ABS# 0.2 K/ul 10/28/2016 Cbc With Differential Ord2 Baso ABS# 0.1 K/ul 10/28/2016 Tsh Ord6 hTSH II 2.77 uIU/mL 10/28/2016 Comp Metabolic Ggo356 NA 138 mEq/L 10/28/2016 Comp Metabolic Znf614 K 4.6 mEq/L 10/28/2016 Comp Metabolic Lan803 CL 104 mEq/L 10/28/2016 Comp Metabolic Rbi947 CO2 29.0 mEq/L 10/28/2016 Comp Metabolic Uus638 ANION GAP 10 10/28/2016 Comp Metabolic Yqw921 GLUCOSE 88 mg/dL 10/28/2016 Comp Metabolic Uom009 Creat 0.9 mg/dL 10/28/2016 Comp Metabolic Clr868 eGFR 60 ml/min/1.73m2 10/28/2016 Comp Metabolic Fth216 BUN 27 mg/dL 10/28/2016 Comp Metabolic Flg967 B/C Ratio 28.7 Ratio 10/28/2016 Comp Metabolic Nlm581 CALCIUM 9.7 mg/dL 10/28/2016 Comp Metabolic Ngr733 ALK PHOS 58 U/L 10/28/2016 Comp Metabolic Edk571 AST(SGOT) 20 U/L 10/28/2016 Comp Metabolic Lvq783 ALT(SGPT) 14 U/L 10/28/2016 Comp Metabolic Jjc218 BILI T 0.6 mg/dL 10/28/2016 Comp Metabolic Uok384 ALBUMIN 3.6 g/dL 10/28/2016 Comp Metabolic Ccu421 TPRO 6.3 g/dL 10/28/2016 Comp Metabolic Diu270 GLOB 2.7 g/dL 10/28/2016 Comp Metabolic Hyq729 A/G Ratio 1.3 Ratio 10/28/2016 Comp Metabolic Ils358 Osmo 280 mOsmo 10/28/2016 LIPID GRP HDL TEST 60 MG/DL 05/13/2015 LIPID GRP TRIG 100 MG/DL 05/13/2015 LIPID GRP TEST LDL 190 MG/DL 05/13/2015 LIPID GRP CHOL 270 MG/DL 05/13/2015 LIPID GRP 3207202 RCHOL/HDL 4.50 RATIO 05/13/2015 LIPID GRP NON-HDL CH 210 MG/DL 05/13/2015 LIVER PNL 7120488 AST 29 U/L 05/13/2015 LIVER PNL 7535042 ALK PHOS 70 U/L 05/13/2015 LIVER PNL 0141519 BILI TOT 0.5 MG/DL 05/13/2015 LIVER PNL 0202543 ALT 27 IU/L 05/13/2015 LIVER PNL 5757259 BILI DIR 0.1 MG/DL 05/13/2015 LIVER PNL 9171050 ALBUMIN 3.8 GM/DL 05/13/2015 LIVER PNL 1177199 PROT TOT 7.3 GM/DL 05/13/2015 TSH 9593872 TSH 3.354 uIU/ML 07/24/2013 LIPID GRP HDL TEST 46 MG/DL 07/24/2013 LIPID GRP TRIG 86 MG/DL 07/24/2013 LIPID GRP TEST LDL 113 MG/DL 07/24/2013 LIPID GRP CHOL 176 MG/DL 07/24/2013 LIPID GRP RCHOL/HDL 3.83 RATIO 07/24/2013 CHEM 14 3191182 AST 25 U/L 07/24/2013 CHEM 14 3712324 ALT 20 IU/L 07/24/2013 CHEM 14 0379745 BUN 18 MG/DL 07/24/2013 CHEM 14 5155914 ALBUMIN 4.0 GM/DL 07/24/2013 CHEM 14 9217752 CHLORIDE 105 MMOL/L 07/24/2013 CHEM 14 3596258 BILI TOT 0.4 MG/DL 07/24/2013 CHEM 14 3636296 ALK PHOS 57 U/L 07/24/2013 CHEM 14 7865381 SODIUM 139 MMOL/L 07/24/2013 CHEM 14 0161210 CREATININE 0.83 MG/DL 07/24/2013 CHEM 14 4249328 CALCIUM 10.0 MG/DL 07/24/2013 CHEM 14 8020171 POTASSIUM 4.5 MMOL/L 07/24/2013 CHEM 14 5948371 PROT TOT 6.3 GM/DL 07/24/2013 CHEM 14 4929437 GLUCOSE 91 MG/DL 07/24/2013 CHEM 14 2931176 BICARB 28 MMOL/L 07/24/2013 CHEM 14 2652419 ANION GAP 6 MEQ/L 07/24/2013 FREE T4 9309284 FREE T4 1.17 NG/DL 07/24/2013 GFR CALC 4416003 GFR AA >60 ML/MIN 07/24/2013 GFR CALC 9955039 GFR NON-AA >60 ML/MIN 07/24/2013 CBC 9112160 WBC 5.7 10e9/L 07/24/2013 CBC 7864810 RBC 4.39 10e12/L 07/24/2013 CBC 3991220 HGB 13.6 g/dL 07/24/2013 CBC 4064007 HCT DET 41.7 % 07/24/2013 CBC 5554928 MCV 95.0 fL 07/24/2013 CBC 9964926 MCH 31.0 pg 07/24/2013 CBC 4579569 MCHC 32.6 g/dL 07/24/2013 CBC 2222814 PLT 341 10e9/L 07/24/2013 CBC 9235132 MPV 9.7 fL 07/24/2013 CBC 8863641 RORO % 37.9 % 07/24/2013 CBC 4148679 LY % 38.1 % 07/24/2013 CBC 6592840 MON % 12.0 % 07/24/2013 CBC 1802765 EOS % 9.9 % 07/24/2013 CBC 6671767 BASO % 2.1 % 07/24/2013 CBC 5817638 RDW 14.1 % 07/24/2013 CBC 1630730 ABS RORO 2.16 10e9/L 07/24/2013 CBC 9453975 ABS LYMPH 2.17 10e9/L 07/24/2013 CBC 5500827 ABS MONO 0.68 10e9/L 07/24/2013 CBC 9292278 ABS EOS 0.56 10e9/L 07/24/2013 CBC 2604791 ABS BASO 0.12 10e9/L 07/24/2013 CBC 4443717 RDW-SD 47.2 fL 07/24/2013 FREE T4 8883766 FREE T4 0.97 NG/DL 03/14/2013 TSH 0943670 TSH 6.175 uIU/ML 03/13/2013 LIPID GRP HDL TEST 51 MG/DL 03/13/2013 LIPID GRP TRIG 182 MG/DL 03/13/2013 LIPID GRP TEST LDL 191 MG/DL 03/13/2013 LIPID GRP CHOL 278 MG/DL 03/13/2013 LIPID GRP RCHOL/HDL 5.45 RATIO 03/13/2013 CHEM 14 7422537 AST 23 U/L 03/13/2013 CHEM 14 2759206 ALT 18 IU/L 03/13/2013 CHEM 14 8028103 BUN 21 MG/DL 03/13/2013 CHEM 14 6983022 ALBUMIN 4.1 GM/DL 03/13/2013 CHEM 14 3160606 CHLORIDE 107 MMOL/L 03/13/2013 CHEM 14 9889529 BILI TOT 0.4 MG/DL 03/13/2013 CHEM 14 8592802 ALK PHOS 57 U/L 03/13/2013 CHEM 14 0182463 SODIUM 140 MMOL/L 03/13/2013 CHEM 14 0159832 CREATININE 0.94 MG/DL 03/13/2013 CHEM 14 2251713 CALCIUM 9.8 MG/DL 03/13/2013 CHEM 14 5009687 POTASSIUM 4.4 MMOL/L 03/13/2013 CHEM 14 5510740 PROT TOT 6.1 GM/DL 03/13/2013 CHEM 14 1831241 GLUCOSE 90 MG/DL 03/13/2013 CHEM 14 1476034 BICARB 27 MMOL/L 03/13/2013 CHEM 14 0415207 ANION GAP 6 MEQ/L 03/13/2013 GFR CALC 3885160 GFR AA >60 ML/MIN 03/13/2013 GFR CALC 0624095 GFR NON-AA 57.0L ML/MIN 03/13/2013 CBC 4870334 WBC 4.9 10e9/L 07/02/2012 CBC 3260791 RBC 4.20 10e12/L 07/02/2012 CBC 6155569 HGB 13.3 g/dL 07/02/2012 CBC 3622428 HCT DET 40.2 % 07/02/2012 CBC 4374055 MCV 95.7 fL 07/02/2012 CBC 6887335 MCH 31.7 pg 07/02/2012 CBC 4537958 MCHC 33.1 g/dL 07/02/2012 CBC 5017538 PLT 317 10e9/L 07/02/2012 CBC 0883279 MPV 10.3 fL 07/02/2012 CBC 0563779 RORO % 40.1 % 07/02/2012 CBC 3480911 LY % 42.8 % 07/02/2012 CBC 1145920 MON % 12.0 % 07/02/2012 CBC 9341882 EOS % 4.3 % 07/02/2012 CBC 7596376 BASO % 0.8 % 07/02/2012 CBC 1666653 RDW 13.9 % 07/02/2012 CBC 2363382 ABS RORO 1.96 10e9/L 07/02/2012 CBC 1438013 ABS LYMPH 2.10 10e9/L 07/02/2012 CBC 2219246 ABS MONO 0.59 10e9/L 07/02/2012 CBC 1494132 ABS EOS 0.21 10e9/L 07/02/2012 CBC 0671696 ABS BASO 0.04 10e9/L 07/02/2012 CBC 1043845 RDW-SD 47.3 fL 07/02/2012 CHEM 14 8056516 AST 23 U/L 07/02/2012 CHEM 14 2929114 ALT 20 IU/L 07/02/2012 CHEM 14 2853428 BUN 14 MG/DL 07/02/2012 CHEM 14 6012195 ALBUMIN 3.8 GM/DL 07/02/2012 CHEM 14 2951797 CHLORIDE 108 MMOL/L 07/02/2012 CHEM 14 6052544 BILI TOT 0.4 MG/DL 07/02/2012 CHEM 14 6620783 ALK PHOS 66 U/L 07/02/2012 CHEM 14 4761369 SODIUM 143 MMOL/L 07/02/2012 CHEM 14 5611333 CREATININE 0.88 MG/DL 07/02/2012 CHEM 14 4041507 CALCIUM 9.7 MG/DL 07/02/2012 CHEM 14 9709085 POTASSIUM 4.6 MMOL/L 07/02/2012 CHEM 14 0784403 PROT TOT 6.4 GM/DL 07/02/2012 CHEM 14 0751148 GLUCOSE 87 MG/DL 07/02/2012 CHEM 14 9210951 BICARB 28 MMOL/L 07/02/2012 CHEM 14 1158985 ANION GAP 7 MEQ/L 07/02/2012 GFR CALC 4872789 GFR AA >60 ML/MIN 07/02/2012 GFR CALC 5620568 GFR NON-AA >60 ML/MIN 07/02/2012 FREE T4 4112144 FREE T4 1.10 NG/DL 07/02/2012 TSH 1033627 TSH 2.909 uIU/ML 07/02/2012 LIPID GRP HDL TEST 54 MG/DL 07/02/2012 LIPID GRP 6066298 TRIG 102 MG/DL 07/02/2012 LIPID GRP TEST LDL 109 MG/DL 07/02/2012 LIPID GRP 2975486 CHOL 183 MG/DL 07/02/2012 LIPID GRP 9537670 RCHOL/HDL 3.39 RATIO 07/02/2012 URINALYSIS NONAUTO W/O SCOPE 81314 Specific [place] 1.005 DateTime(Free Text in Aprima) URINALYSIS NONAUTO W/O SCOPE 62354 PH 5.0 DateTime(Free Text in Aprima) URINALYSIS NONAUTO W/O SCOPE 97986 GLUCOSE NEG DateTime(Free Text in Aprima) URINALYSIS NONAUTO W/O SCOPE 30193 Protein NEG DateTime(Free Text in Aprima) URINALYSIS NONAUTO W/O SCOPE 45247 Blood NEG DateTime(Free Text in Aprima) URINALYSIS NONAUTO W/O SCOPE 14633 Bilirubin NEG DateTime(Free Text in Aprima) URINALYSIS NONAUTO W/O SCOPE 73915 Ketones NEG DateTime(Free Text in Aprima) URINALYSIS NONAUTO W/O SCOPE 68158 Urobilinogen NEG DateTime(Free Text in Aprima) URINALYSIS NONAUTO W/O SCOPE 47282 Nitrite NEG DateTime(Free Text in Aprima) URINALYSIS NONAUTO W/O SCOPE 23090 Leukocytes NEG DateTime(Free Text in Aprima) Review of Systems System Result Effective Dates Musculoskeletal back pain 09/19/2017 Musculoskeletal No muscle [...] lips 11/04/2013 None Full Exam - General 1995 Ears/Nose/Throat lips/teeth/gingiva Overall: normal dentition 11/04/2013 None [...] sounds 08/05/2013 None Full Exam - General 1995 Musculoskeletal [...] dentition 10/25/2012 None Full Exam - General 1994 Ears/Nose/Throat lips/teeth/gingiva Overall: benign gingiva 10/25/2012 None [...] masses 07/04/2012 None Full Exam - General 1995 Ears/Nose/Throat oral cavity/pharynx/larynx Overall: hypopharynx benign 07/04/2012 [...] developed 12/26/2011 None Full Exam - General 1995 [...] gingiva 10/26/2011 None Full Exam - General 1995 Ears/Nose/Throat lips/teeth/gingiva Overall: no masses 10/26/2011 None [...] dentition 04/27/2011 None Full Exam - General 1995 [...] Date PPPS, SUBSEQ VISIT CPT- 4: G0439 02/06/2017 TRIAMCINOLONE ACET INJ NOS CPT-4: J3301 02/03/2017 PAP CPT-4: 8167933 10/17/2016 ROUTINE VENIPUNCTURE CPT- 4: 66102 07/24/2013 ROUTINE VENIPUNCTURE CPT- 4: 19009 03/13/2013 PRESCRIP TRANSMIT VIA ERX SY CPT-4: G8553 10/25/2012 ROUTINE VENIPUNCTURE CPT- 4: 45936 07/02/2012 PRESCRIP TRANSMIT VIA ERX SY CPT-4: G8553 12/26/2011 ROUTINE VENIPUNCTURE CPT- 4: 89847 10/20/2011 URINALYSIS NONAUTO W/O SCOPE CPT-4: 81142 09/15/2011 PRESCRIP TRANSMIT VIA ERX SY CPT-4: G8553 09/15/2011 ROUTINE VENIPUNCTURE CPT- 4: 11851 06/07/2011 PRESCRIP TRANSMIT VIA ERX SY CPT-4: G8553 04/27/2011 Vital Signs Date Vital 09/19/2017 Blood Pressure 1: 148/70 Code: 8480-6 BMI: 33.3 Code: 06777-8 Heart Rate 1: 82 bpm Height: 5'4" SpO2: 98% Weight: 197 lbs 07/21/2017 Blood Pressure 1: 160/62 Code: 8480-6 Blood Pressure 1: 144/68 Code: 8480-6 BMI: 33.3 Code: 42448-8 Heart Rate 1: 75 bpm Height: 5'4" SpO2: 98% Weight: 197 lbs 02/06/2017 Blood Pressure 1: 142/84 Code: 8480-6 BMI: 32.1 Code: 79944-1 Heart Rate 1: 76 bpm Height: 5'4" SpO2: 96% Weight: 190 lbs 02/03/2017 Blood Pressure 1: 142/84 Code: 8480-6 BMI: 32.2 Code: 18985-4 Heart Rate 1: 76 bpm Height: 5'4" SpO2: 96% Weight: 190 lbs 8 oz 10/17/2016 Blood Pressure 1: 136/90 Code: 8480-6 BMI: 31.6 Code: 51703-0 Heart Rate 1: 76 bpm Height: 5'4" SpO2: 98% Weight: 187 lbs 07/14/2015 Blood Pressure 1: 150/80 Code: 8480-6 BMI: 31.1 Code: 94085-4 Heart Rate 1: 74 bpm Height: 5'4" SpO2: 95% Weight: 184 lbs 11/17/2014 Blood Pressure 1: 142/88 Code: 8480-6 BMI: 32.3 Code: 47639-9 Heart Rate 1: 72 bpm Height: 5'4" Weight: 191 lbs 05/19/2014 Blood Pressure 1: 136/74 Code: 8480-6 BMI: 32.8 Code: 57472-7 Heart Rate 1: 72 bpm Height: 5'4" Weight: 194 lbs 11/04/2013 Blood Pressure 1: 154/76 Code: 8480-6 BMI: 31.4 Code: 73895-1 Heart Rate 1: 76 bpm Height: 5'4" Weight: 186 lbs 08/05/2013 Blood Pressure 1: 150/78 Code: 8480-6 BMI: 30.9 Code: 73427-9 Heart Rate 1: 60 bpm Height: 5'4" Weight: 183 lbs 05/22/2013 Blood Pressure 1: 156/76 Code: 8480-6 BMI: 31.8 Code: 43799-3 Heart Rate 1: 72 bpm Height: 5'4" Weight: 188 lbs 02/20/2013 Blood Pressure 1: 138/78 Code: 8480-6 BMI: 32.1 Code: 14066-2 Heart Rate 1: 72 bpm Height: 5'4" Weight: 190 lbs 10/25/2012 Blood Pressure 1: 138/82 Code: 8480-6 BMI: 31.8 Code: 49859-7 Heart Rate 1: 72 bpm Height: 5'4" Weight: 188 lbs 07/04/2012 Blood Pressure 1: 136/70 Code: 8480-6 Heart Rate 1: 72 bpm Weight: 187 lbs 12/26/2011 Blood Pressure 1: 152/82 Code: 8480-6 BMI: 30.4 Code: 91413-0 Heart Rate 1: 78 bpm Height: 5'4" Respiratory Rate: 16 bpm Weight: 180 lbs 10/26/2011 Blood Pressure 1: 140/64 Code: 8480-6 Heart Rate 1: 64 bpm Weight: 181 lbs 8 oz 09/15/2011 Blood Pressure 1: 152/82 Code: 8480-6 BMI: 30.8 Code: 29676-5 Heart Rate 1: 60 bpm Height: 5'4" Temperature: 36.8 (C) / 98.3 (F) Weight: 182 lbs 06/07/2011 Blood Pressure 1: 154/80 Code: 8480-6 05/10/2011 Blood Pressure 1: 122/66 Code: 8480-6 BMI: 30.7 Code: 19433-7 Heart Rate 1: 66 bpm Height: 5'4" Respiratory Rate: 12 bpm Weight: 181 lbs 8 oz 04/27/2011 Blood Pressure 1: 136/70 Code: 8480-6 BMI: 30.6 Code: 53986-0 Heart Rate 1: 72 bpm Height: 5'4" Respiratory Rate: 12 bpm Weight: 181 lbs Functional Status No Functional Status data History of Present Illness Symptom Name Status Result Effective Date Notes low back pain Location on both sides [...] Low back pain[ICD10: M54.5] Katie Abdalla MD, [facility] CPT-4: 30328 09/19/2017 ([id number]) 19245 EST. PATIENT, LEVEL III Diagnosis: Essential (primary) hypertension[ICD10: I10] Diagnosis: Epigastric pain[ICD10: R10.13] [facility] CPT-4: 39051 07/21/2017 ([id number]) 02634 EST. PATIENT, LEVEL III Diagnosis: Low back pain[ICD10: M54.5] [facility] CPT-4: 57214 02/03/2017 ([id number]) 23977 EST. PATIENT, LEVEL IV Diagnosis: Encounter for gynecological examination (general) (routine) without abnormal findings[ICD10: Z01.419] Tori Abdalla MD [facility] CPT-4: 39364 10/17/2016 [id number] EST. PATIENT, LEVEL III Diagnosis: Low back pain[ICD10: M54.5] Katie Abdalla MD [facility] CPT-4: 01595 07/14/2015 ([id number]) 58882 EST. PATIENT, LEVEL III Diagnosis: ESSENTIAL HYPERTENSION[ICD9: 401.9] Marcela Abdalla MD [facility] CPT- 4: 01246 11/17/2014 ([id number]) 28345 EST. PATIENT, LEVEL III Diagnosis: ESSENTIAL HYPERTENSION[ICD9: 401.9] Diagnosis: HYPERLIPIDEMIA[ICD9: 272.4] Diagnosis: HYPOTHYROIDISM[ICD9: 244.9] Marcela Abdalla MD [facility] CPT-4: 83622 05/19/2014 ([id number]) 09521 EST. PATIENT, LEVEL IV Diagnosis: HYPOTHYROIDISM[ICD9: 244.9] Diagnosis: ESSENTIAL HYPERTENSION[SNOMED: 48896142] Marcela Abdalla MD [facility] CPT-4: 98792 11/04/2013 ([id number]) 35010 EST. PATIENT, LEVEL III Diagnosis: ESSENTIAL HYPERTENSION[SNOMED: 30581461] Marcela Abdalla MD [facility] CPT-4: 59166 08/05/2013 ([id number]) 93533 EST. PATIENT, LEVEL III Diagnosis: ESSENTIAL HYPERTENSION[SNOMED: 94579408] Marcela Abdalla MD [facility] CPT-4: 57284 05/22/2013 ([id number]) 55116 EST. PATIENT, LEVEL III Diagnosis: ESSENTIAL HYPERTENSION[SNOMED: 20863910] Marcela Abdalla MD [facility] CPT-4: 42656 02/20/2013 ([id number]) 38133 EST. PATIENT, LEVEL IV Diagnosis: ESSENTIAL HYPERTENSION[SNOMED: 46580206] Diagnosis: HYPERLIPIDEMIA[ICD9: 272.4] Diagnosis: NONSPECIF SKIN ERUPT NEC[ICD9: 782.1] Marcela Abdalla MD, [facility] CPT-4: 62304 10/25/2012 [id number]) 43996 EST. PATIENT, LEVEL IV Diagnosis: ESSENTIAL HYPERTENSION[SNOMED: 23675491] Diagnosis: HYPERLIPIDEMIA[ICD9: 272.4] Marcela Abdalla MD, [facility] CPT-4: 64738 07/04/2012 ([id number]) 67326 EST. PATIENT, LEVEL IV Diagnosis: ESSENTIAL HYPERTENSION[SNOMED: 11548922] Diagnosis: HYPERLIPIDEMIA[ICD9: 272.4] Marcela Abdalla MD, [facility] CPT-4: 34058 12/26/2011 ([id number]) 23683 EST. PATIENT, LEVEL IV Diagnosis: ESSENTIAL HYPERTENSION[SNOMED: 97398249] Diagnosis: HYPERLIPIDEMIA[ICD9: 272.4] Marcela Abdalla MD, [facility] CPT-4: 04815 10/26/2011 ([id number]) 56154 EST. PATIENT, LEVEL IV Diagnosis: BPPV (benign paroxysmal positional vertigo)[ICD9: 386.11] Diagnosis: ESSENTIAL HYPERTENSION[SNOMED: 98931134] Tori Adballa MD, [facility] CPT-4: 42873 09/15/2011 70523 EST. PATIENT, LEVEL III Diagnosis: Lesion of oral mucosa[ICD9: 528.9] Diagnosis: Rash and nonspecific skin eruption[ICD9: 782.1] Marcela Abdalla MD, [facility] CPT-4: 99857 05/10/2011 29991 EST. PATIENT, LEVEL IV Diagnosis: ESSENTIAL HYPERTENSION[SNOMED: 10591384] Diagnosis: Mouth sores[ICD9: 528.9] Marcela Abdalla MD, [facility] CPT-4: 61304 04/27/2011 Plan of Care Planned Activity Notes Codes Status Date App[facility]ment: [facility] [phone] [facility] [place] ([facility] min) Complex 09/19/2017 Patient Education: Patient Medication Summary Completed 09/19/2017 Appointment: [facility] [phone] [phone] (30 min) Complex 07/21/2017 Patient Education: Patient Medication Summary Completed 07/21/2017 Patient Education: Obesity Completed 07/21/2017 Patient Education: 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 Completed 07/21/2017 Appointment: Katie Ellis WPtel: [facility] MCR - Annual Wellness Visit 02/06/2017 Patient Education: Patient Medication Summary Completed 02/06/2017 Patient Education: Obesity Completed 02/06/2017 Appointment: Tori Duvall WPtel: [phone] (30 min) Complex 02/03/2017 Patient Education: Patient Medication Summary Completed 02/03/2017 Patient Education: Obesity Completed 02/03/2017 Appointment: Tori Duvall WPtel: [address] [place], [place] [phone] [facility] 10/17/2016 Patient Education: Patient Medication Summary Completed 10/17/2016 Patient Education: Obesity Completed 10/17/2016 Appointment: (30 min) Complex 07/14/2015 Patient Education: Patient Medication Summary Completed 07/14/2015 Appointment: Marcela Abdalla WPtel: [facility] Follow up 11/17/2014 Patient Education: Patient Medication Summary Completed 11/17/2014 Patient Education: 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 Completed 11/17/2014 Appointment: Marcela Abdalla WPtel: [facility] Follow up 05/19/2014 Patient Education: Patient Medication Summary Completed 05/19/2014 Patient Education: 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 Completed 05/19/2014 Appointment: Marcela Abdalla WPtel: [facility] Follow [facility] 11/04/2013 Patient Education: Patient Medication Summary Completed 11/04/2013 Patient Education: 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 Completed 11/04/2013 Appointment: Marcela Abdalla WPtel: [facility] Follow [facility] 08/05/2013 Patient Education: Patient Medication Summary Completed 08/05/2013 Patient Education: 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 Completed 08/05/2013 Patient Education: Patient Medication Summary Completed 07/24/2013 Patient Education: 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 Completed 07/24/2013 Appointment: Marcela Abdalla WPtel: [address] [place], [place] [phone] Follow up 05/22/2013 Patient Education: Patient Medication Summary Completed 05/22/2013 Patient Education: 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 Completed 05/22/2013 Patient Education: Patient Medication Summary Completed 03/13/2013 Patient Education: 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 Completed 03/13/2013 Appointment: Marcela Abdalla WPtel: [address] [place], [place] [phone] Follow up 02/20/2013 Patient Education: Patient Medication Summary Completed 02/20/2013 Patient Education: 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 Completed 02/20/2013 Appointment: Marcela Abdalla WPtel: [address] [place], [place] [phone] Follow up 10/25/2012 Patient Education: Patient Medication Summary Completed 10/25/2012 Patient Education: 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 Completed 10/25/2012 Appointment: Marcela Abdalla WPtel: [address] [place], [place] [phone] Established Patient Preventative visit 07/04/2012 Patient Education: Patient Medication Summary Completed 07/04/2012 Patient Education: 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 Completed 07/04/2012 Appointment: Marcela Abdalla WPtel: [address] [place], [place] [phone] Lab Draw 07/02/2012 Patient Education: Patient Medication Summary Completed 07/02/2012 Patient Education: High Blood Pressure: Essential 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 Completed 07/02/2012 Appointment: Marcela Abdalla WPtel: [address] [place], [place] [phone] Other 12/26/2011 Patient Education: Patient Medication Summary Completed 12/26/2011 Patient Education: High Blood Pressure: Essential 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 Completed 12/26/2011 Appointment: Marcela Abdalla WPtel: [address] [place], [place] [phone] Other 10/26/2011 Patient Education: Patient Medication Summary Completed 10/26/2011 Patient Education: High Blood Pressure: Essential 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 Completed 10/26/2011 Appointment: Marcel[facility]alla [facility]el[id number] [place] [facility] 10/20/2011 Patient Education: Patient Medication Summary Completed 10/20/2011 Patient Education: High Blood Pressure: Essential 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 Completed 10/20/2011 [facility] [phone] [id number] [place] Lab Draw 09/15/2011 Patient Education: Patient Medication Summary Completed 09/15/2011 Patient Education: .Amazing charts Paroxysmal positional vertigo Completed 09/15/2011 Patient Education: High Blood Pressure: Essential 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 Completed 09/15/2011 Appointment: Marcela Abdalla WPtel: [facility] Lab Draw 06/07/2011 Patient Education: Patient Medication Summary Completed 06/07/2011 Patient Education: High Blood Pressure: Essential 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 Completed 06/07/2011 Appointment: Marcela Abdalla WPtel: [facility] Other 05/10/2011 Patient Education: Patient Medication Summary Completed 05/10/2011 Appointment: Marcela Abdalla WPtel: [facility] Follow up 05/04/2011 Appointment: Marcela Abdalla WPtel: [facility] Other 04/27/2011 Patient Education: Patient Medication Summary Completed 04/27/2011 Referral: Seth Thorne WPtel: [address], [address] [id number] [place] Referral Relationship Instructions No Instructions
--- OUTSIDE RECORDS SUMMARY | 2019-01-10 12:57 | XMS REPORT ---
Author Author HARPAL DUARTE [facility] Address Unknown Care Team Providers Care Supervisor Final Name Role Phone HARPAL DUARTE Unavailable PROBLEMS Unknown Problems ALLERGIES No Information ENCOUNTERS Encounter Location Date Diagnosis [facility] [id number] [place] [id number] Jul, Dental examination Z01.20 [facility] [address] [id number] [place] [address] [id number] Feb, Dental examination Z01.20 [facility] [id number] [place] [address] [id number] Feb, Dental examination Z01.20 [facility] [id number] [place] [address] [id number] Feb, Dental examination Z01.20 [facility] [address] [id number] [place] [id number] Oct, Encounter for dental examination Z01.20 IMMUNIZATIONS No Known Immunizations SOCIAL HISTORY Never Assessed REASON FOR VISIT FILILNGS PLAN OF CARE VITAL SIGNS MEDICATIONS Unknown Medications RESULTS No Results PROCEDURES Procedure Date Ordered Result Body Site Billing Notes on claim Jul 19, 2017 INSTRUCTIONS MEDICATIONS ADMINISTERED No Known Medications MEDICAL (GENERAL) HISTORY Type Description Date Medical History 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 Surgical History Cataracts- R & L Surgical History 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
--- OUTSIDE RECORDS SUMMARY | 2019-01-10 12:57 | XMS REPORT | CCD ---
Author Author [facility] Organization [facility] Address [address] [place] [address] Phone Care Team Providers Care Production Support Developer Name Role Phone PP Unavailable CCM Unavailable Summary Purpose Interface Exchange Insurance Providers Payer name Policy type / Coverage type Covered democrat ID Effective Begin Date Effective End Date WPS Medicare Part B Medicare Part B [id number] Unknown Unknown [facility] LIFE INSUR Medicare Part B [id number] Unknown Unknown Family history Daughter Diagnosis Age [...] Unknown 04/27/2011 Number of children Unknown 4 [id number] 04/27/2011 Employment Unknown Retired 04/27/[address]: 963705875 Never smoker 04/27/[address]: 428274483 Never drinks alcohol 04/27/2011 Has the patient [...] Fill Instructions prednisone 20 mg tablet RxNorm: 147656 2 Tablet(s) PO daily 09/19/2017 09/23/2017 Active lisinopril 10 mg tablet RxNorm: 845481 1 Tablet(s) PO QPM 07/21/2017 01/16/2018 Active Kenalog 40 mg/mL suspension for injection RxNorm: 9227049 1 Milliliter(s) Inj 02/03/2017 02/03/2017 Inactive Zocor 10 mg tablet RxNorm: 429081 1 Tablet(s) PO daily 05/14/2015 05/13/2015 Inactive Zocor 10 mg tablet RxNorm: 288906 1 Tablet(s) PO daily 05/14/2015 05/06/2016 Inactive Zocor 10 mg tablet RxNorm: 622729 1 Tablet(s) PO daily 05/14/2015 05/07/2016 Inactive lalojzur-tgwulqsyg-cthsmglay 3.5 mg/g-10,000 unit/g-0.5 %topical cream RxNorm: 8700266 3 gtts TOP TID 11/17/2014 11/26/2014 Inactive [SAVINGS FOR NON-COVERED DRUGS -- BIN:[id number], PCN: [id number], Group: XXXXX, ID# [id number], Questions: . THIS IS NOT INSURANCE.] simvastatin 40 mg tablet RxNorm: 113963 1/2 Tablet(s) PO QHS 10/09/2013 11/03/2013 Inactive Synthroid 25 mcg tablet RxNorm: 411098 1 Tablet(s) PO daily 08/19/2013 11/11/2014 Inactive clobetasol 0.05 % Topical Cream RxNorm: 313795 1 Application TOP TID PRN 04/05/2013 07/03/2013 Inactive nystatin 100,000 unit/gram Topical Powder RxNorm: 330547 Gram(s) TOP apply to affected area as needed 03/22/2013 10/16/2016 Inactive fluconazole 150 mg tablet RxNorm: 546191 1 Tablet(s) PO 03/19/2013 03/18/2013 Inactive take one at outbreak and then use nystatin powder (she has nystatin at home) fluconazole 150 mg tablet RxNorm: 819658 1 Tablet(s) PO 03/19/2013 03/25/2013 Inactive take one at outbreak and then use nystatin powder (she has nystatin at home) simvastatin 40 mg tablet RxNorm: 149275 1/2 Tablet(s) PO QHS 03/18/2013 07/15/2013 Inactive Synthroid 25 mcg tablet RxNorm: 043508 1 Tablet(s) PO daily 03/18/2013 08/14/2013 Inactive clobetasol 0.05 % Topical Cream RxNorm: 347841 1 Application TOP TID PRN 10/25/2012 01/22/2013 Inactive Coreg 3.125 mg tablet RxNorm: 595899 1 Tablet(s) PO BID 04/17/2012 07/03/2012 Inactive Coreg 3.125 mg tablet RxNorm: 231188 1 Tablet(s) PO BID 03/16/2012 04/14/2012 Inactive Diflucan 150 mg Tab RxNorm: 415418 1 Tablet(s) PO daily 12/26/2011 01/22/2012 Inactive simvastatin 40 mg tablet RxNorm: 750741 1/2 Tablet(s) PO QHS 04/27/2011 03/17/2013 Inactive coenzyme Q10 oral RxNorm: 37310 oral No Start Date Active Vitamin C Oral RxNorm: Oral No Start Date 10/16/2016 Inactive Synthroid 25 mcg tablet RxNorm: 856367 Tablet(s) PO No Start Date 03/17/2013 Inactive coenzyme Q10 75 mg Cap RxNorm: 457537 1 Capsule(s) PO daily No Start Date 10/16/2016 Inactive Coreg 3.125 mg tablet RxNorm: 615339 1 Tablet(s) PO BID No Start Date 03/15/2012 Inactive simvastatin 40 mg Tab RxNorm: 678444 1 Tablet(s) PO QHS No Start Date 04/26/2011 Inactive aspirin 81 mg capsule,delayed release RxNorm: 794458 1 Capsule(s) PO daily No Start Date 10/16/2016 Inactive metoprolol succinate ER 50 mg tablet,extended release 24 hr RxNorm: 993062 1 Tablet(s) PO daily No Start Date 10/16/2016 Inactive lisinopril 20 mg tablet RxNorm: 402647 1 Tablet(s) PO as needed No Start Date 07/20/2017 Inactive Bystolic 5 mg Tab RxNorm: 187111 1 Tablet(s) PO daily No Start Date 10/30/2011 Inactive clobetasol 0.05 % Topical Cream RxNorm: 697179 TOP No Start Date 10/24/2012 Inactive omega-3 fatty acids 1,250 mg Cap RxNorm: 2665839 1 Capsule(s) PO daily No Start Date 10/16/2016 Inactive meclizine 12.5 mg Tab RxNorm: 530333 1/2-1 Tablet(s) PO Q6 PRN No Start Date 05/18/2014 Inactive promethazine 25 mg Rectal Suppository RxNorm: 130857 1 Suppository RTL Q6 PRN No Start Date 07/03/2012 Inactive nystatin 100,000 unit/gram Topical Powder RxNorm: 996755 Gram(s) TOP apply to affected area as needed No Start Date 03/21/2013 Inactive Medication Administered Medication Codes Instructions Start Date Status Kenalog 40 mg/mL suspension for injection RxNorm: 7026568 1Milliliter 02/03/2017 No longer Active Immunizations Vaccine [...] 31.1 pg 10/28/2016 Cbc With Differential Ord2 [place]% 11.9 % 10/28/2016 Cbc With Differential Ord2 [...] 2.07 K/ul 10/28/2016 Cbc With Differential Ord2 [place] ABS# 0.6 K/ul 10/28/2016 Cbc With Differential Ord2 Eos ABS# 0.2 K/ul 10/28/2016 Cbc With Differential Ord2 Baso ABS# 0.1 K/ul 10/28/2016 Tsh Ord6 hTSH II 2.77 uIU/mL 10/28/2016 Comp Metabolic Upm076 NA 138 mEq/L 10/28/2016 Comp Metabolic Qha591 K 4.6 mEq/L 10/28/2016 Comp Metabolic Qwd829 CL 104 mEq/L 10/28/2016 Comp Metabolic Lmf872 CO2 29.0 mEq/L 10/28/2016 Comp Metabolic Bck345 ANION GAP 10 10/28/2016 Comp Metabolic Glc091 GLUCOSE 88 mg/dL 10/28/2016 Comp Metabolic Xnp719 Creat 0.9 mg/dL 10/28/2016 Comp Metabolic Iwr907 eGFR 60 ml/min/1.73m2 10/28/2016 Comp Metabolic Kes572 BUN 27 mg/dL 10/28/2016 Comp Metabolic Mrs273 B/C Ratio 28.7 Ratio 10/28/2016 Comp Metabolic Wtw112 CALCIUM 9.7 mg/dL 10/28/2016 Comp Metabolic Kbg873 ALK PHOS 58 U/L 10/28/2016 Comp Metabolic Mga423 AST(SGOT) 20 U/L 10/28/2016 Comp Metabolic Zth329 ALT(SGPT) 14 U/L 10/28/2016 Comp Metabolic Liv183 BILI T 0.6 mg/dL 10/28/2016 Comp Metabolic Xiq045 ALBUMIN 3.6 g/dL 10/28/2016 Comp Metabolic Van553 TPRO 6.3 g/dL 10/28/2016 Comp Metabolic Qaz127 GLOB 2.7 g/dL 10/28/2016 Comp Metabolic Mya321 A/G Ratio 1.3 Ratio 10/28/2016 Comp Metabolic Ixm076 Osmo 280 mOsmo 10/28/2016 LIPID GRP HDL TEST 60 MG/DL 05/13/2015 LIPID GRP TRIG 100 MG/DL 05/13/2015 LIPID GRP TEST LDL 190 MG/DL 05/13/2015 LIPID GRP CHOL 270 MG/DL 05/13/2015 LIPID GRP 5386565 RCHOL/HDL 4.50 RATIO 05/13/2015 LIPID GRP NON-HDL CH 210 MG/DL 05/13/2015 LIVER PNL 3502915 AST 29 U/L 05/13/2015 LIVER PNL 2920211 ALK PHOS 70 U/L 05/13/2015 LIVER PNL 9574738 BILI TOT 0.5 MG/DL 05/13/2015 LIVER PNL 4422587 ALT 27 IU/L 05/13/2015 LIVER PNL 8767101 BILI DIR 0.1 MG/DL 05/13/2015 LIVER PNL 3272043 ALBUMIN 3.8 GM/DL 05/13/2015 LIVER PNL 3813814 PROT TOT 7.3 GM/DL 05/13/2015 TSH 1195299 TSH 3.354 uIU/ML 07/24/2013 LIPID GRP HDL TEST 46 MG/DL 07/24/2013 LIPID GRP TRIG 86 MG/DL 07/24/2013 LIPID GRP TEST LDL 113 MG/DL 07/24/2013 LIPID GRP CHOL 176 MG/DL 07/24/2013 LIPID GRP RCHOL/HDL 3.83 RATIO 07/24/2013 CHEM 14 4226518 AST 25 U/L 07/24/2013 CHEM 14 1051476 ALT 20 IU/L 07/24/2013 CHEM 14 8556518 BUN 18 MG/DL 07/24/2013 CHEM 14 4006774 ALBUMIN 4.0 GM/DL 07/24/2013 CHEM 14 0492915 CHLORIDE 105 MMOL/L 07/24/2013 CHEM 14 8998289 BILI TOT 0.4 MG/DL 07/24/2013 CHEM 14 1992607 ALK PHOS 57 U/L 07/24/2013 CHEM 14 1503763 SODIUM 139 MMOL/L 07/24/2013 CHEM 14 1092835 CREATININE 0.83 MG/DL 07/24/2013 CHEM 14 4456762 CALCIUM 10.0 MG/DL 07/24/2013 CHEM 14 2264373 POTASSIUM 4.5 MMOL/L 07/24/2013 CHEM 14 6193709 PROT TOT 6.3 GM/DL 07/24/2013 CHEM 14 1932647 GLUCOSE 91 MG/DL 07/24/2013 CHEM 14 4840162 BICARB 28 MMOL/L 07/24/2013 CHEM 14 8506780 ANION GAP 6 MEQ/L 07/24/2013 FREE T4 3991612 FREE T4 1.17 NG/DL 07/24/2013 GFR CALC 0977753 GFR AA >60 ML/MIN 07/24/2013 GFR CALC 8941825 GFR NON-AA >60 ML/MIN 07/24/2013 CBC 3552005 WBC 5.7 10e9/L 07/24/2013 CBC 2322993 RBC 4.39 10e12/L 07/24/2013 CBC 5826634 HGB 13.6 g/dL 07/24/2013 CBC 0732011 HCT DET 41.7 % 07/24/2013 CBC 8767135 MCV 95.0 fL 07/24/2013 CBC 9360639 MCH 31.0 pg 07/24/2013 CBC 4886785 MCHC 32.6 g/dL 07/24/2013 CBC 7824249 PLT 341 10e9/L 07/24/2013 CBC 2689916 MPV 9.7 fL 07/24/2013 CBC 6255820 RORO % 37.9 % 07/24/2013 CBC 9401624 LY % 38.1 % 07/24/2013 CBC 9556087 MON % 12.0 % 07/24/2013 CBC 3878995 EOS % 9.9 % 07/24/2013 CBC 1674615 BASO % 2.1 % 07/24/2013 CBC 2697740 RDW 14.1 % 07/24/2013 CBC 3615357 ABS RORO 2.16 10e9/L 07/24/2013 CBC 5118370 ABS LYMPH 2.17 10e9/L 07/24/2013 CBC 7428790 ABS MONO 0.68 10e9/L 07/24/2013 CBC 8812313 ABS EOS 0.56 10e9/L 07/24/2013 CBC 0656718 ABS BASO 0.12 10e9/L 07/24/2013 CBC 2042666 RDW-SD 47.2 fL 07/24/2013 FREE T4 2096761 FREE T4 0.97 NG/DL 03/14/2013 TSH 2894250 TSH 6.175 uIU/ML 03/13/2013 LIPID GRP HDL TEST 51 MG/DL 03/13/2013 LIPID GRP TRIG 182 MG/DL 03/13/2013 LIPID GRP TEST LDL 191 MG/DL 03/13/2013 LIPID GRP CHOL 278 MG/DL 03/13/2013 LIPID GRP RCHOL/HDL 5.45 RATIO 03/13/2013 CHEM 14 8333299 AST 23 U/L 03/13/2013 CHEM 14 5678323 ALT 18 IU/L 03/13/2013 CHEM 14 0050742 BUN 21 MG/DL 03/13/2013 CHEM 14 2541482 ALBUMIN 4.1 GM/DL 03/13/2013 CHEM 14 2795331 CHLORIDE 107 MMOL/L 03/13/2013 CHEM 14 3404358 BILI TOT 0.4 MG/DL 03/13/2013 CHEM 14 6938641 ALK PHOS 57 U/L 03/13/2013 CHEM 14 0488088 SODIUM 140 MMOL/L 03/13/2013 CHEM 14 8331730 CREATININE 0.94 MG/DL 03/13/2013 CHEM 14 4989654 CALCIUM 9.8 MG/DL 03/13/2013 CHEM 14 2125263 POTASSIUM 4.4 MMOL/L 03/13/2013 CHEM 14 7403080 PROT TOT 6.1 GM/DL 03/13/2013 CHEM 14 6437512 GLUCOSE 90 MG/DL 03/13/2013 CHEM 14 8448823 BICARB 27 MMOL/L 03/13/2013 CHEM 14 4029405 ANION GAP 6 MEQ/L 03/13/2013 GFR CALC 0230965 GFR AA >60 ML/MIN 03/13/2013 GFR CALC 2592976 GFR NON-AA 57.0L ML/MIN 03/13/2013 CBC 7589194 WBC 4.9 10e9/L 07/02/2012 CBC 1751655 RBC 4.20 10e12/L 07/02/2012 CBC 3884060 HGB 13.3 g/dL 07/02/2012 CBC 7430131 HCT DET 40.2 % 07/02/2012 CBC 1952132 MCV 95.7 fL 07/02/2012 CBC 0553578 MCH 31.7 pg 07/02/2012 CBC 9629302 MCHC 33.1 g/dL 07/02/2012 CBC 4788297 PLT 317 10e9/L 07/02/2012 CBC 6087186 MPV 10.3 fL 07/02/2012 CBC 8733924 RORO % 40.1 % 07/02/2012 CBC 4564922 LY % 42.8 % 07/02/2012 CBC 8170381 MON % 12.0 % 07/02/2012 CBC 4674288 EOS % 4.3 % 07/02/2012 CBC 7203568 BASO % 0.8 % 07/02/2012 CBC 2217511 RDW 13.9 % 07/02/2012 CBC 7174680 ABS RORO 1.96 10e9/L 07/02/2012 CBC 5487361 ABS LYMPH 2.10 10e9/L 07/02/2012 CBC 2300424 ABS MONO 0.59 10e9/L 07/02/2012 CBC 7454704 ABS EOS 0.21 10e9/L 07/02/2012 CBC 0563349 ABS BASO 0.04 10e9/L 07/02/2012 CBC 4171271 RDW-SD 47.3 fL 07/02/2012 CHEM 14 9143898 AST 23 U/L 07/02/2012 CHEM 14 1017101 ALT 20 IU/L 07/02/2012 CHEM 14 8257863 BUN 14 MG/DL 07/02/2012 CHEM 14 8666295 ALBUMIN 3.8 GM/DL 07/02/2012 CHEM 14 3719101 CHLORIDE 108 MMOL/L 07/02/2012 CHEM 14 8275270 BILI TOT 0.4 MG/DL 07/02/2012 CHEM 14 8679426 ALK PHOS 66 U/L 07/02/2012 CHEM 14 8413152 SODIUM 143 MMOL/L 07/02/2012 CHEM 14 0427421 CREATININE 0.88 MG/DL 07/02/2012 CHEM 14 0770100 CALCIUM 9.7 MG/DL 07/02/2012 CHEM 14 7253418 POTASSIUM 4.6 MMOL/L 07/02/2012 CHEM 14 5185377 PROT TOT 6.4 GM/DL 07/02/2012 CHEM 14 5242994 GLUCOSE 87 MG/DL 07/02/2012 CHEM 14 3637466 BICARB 28 MMOL/L 07/02/2012 CHEM 14 8318350 ANION GAP 7 MEQ/L 07/02/2012 GFR CALC 4991793 GFR AA >60 ML/MIN 07/02/2012 GFR CALC 6814209 GFR NON-AA >60 ML/MIN 07/02/2012 FREE T4 6431765 FREE T4 1.10 NG/DL 07/02/2012 TSH 7710243 TSH 2.909 uIU/ML 07/02/2012 LIPID GRP HDL TEST 54 MG/DL 07/02/2012 LIPID GRP 1812973 TRIG 102 MG/DL 07/02/2012 LIPID GRP TEST LDL 109 MG/DL 07/02/2012 LIPID GRP 6369945 CHOL 183 MG/DL 07/02/2012 LIPID GRP 0420139 RCHOL/HDL 3.39 RATIO 07/02/2012 URINALYSIS NONAUTO W/O SCOPE 82147 Specific [place] 1.005 DateTime(Free Text in Aprima) URINALYSIS NONAUTO W/O SCOPE 86723 PH 5.0 DateTime(Free Text in Aprima) URINALYSIS NONAUTO W/O SCOPE 25984 GLUCOSE NEG DateTime(Free Text in Aprima) URINALYSIS NONAUTO W/O SCOPE 10714 Protein NEG DateTime(Free Text in Aprima) URINALYSIS NONAUTO W/O SCOPE 49996 Blood NEG DateTime(Free Text in Aprima) URINALYSIS NONAUTO W/O SCOPE 49937 Bilirubin NEG DateTime(Free Text in Aprima) URINALYSIS NONAUTO W/O SCOPE 42296 Ketones NEG DateTime(Free Text in Aprima) URINALYSIS NONAUTO W/O SCOPE 65285 Urobilinogen NEG DateTime(Free Text in Aprima) URINALYSIS NONAUTO W/O SCOPE 27197 Nitrite NEG DateTime(Free Text in Aprima) URINALYSIS NONAUTO W/O SCOPE 33842 Leukocytes NEG DateTime(Free Text in Aprima) Review [...] INJ NOS CPT-4: J3301 02/03/2017 PAP CPT-4: 3712581 10/17/2016 ROUTINE VENIPUNCTURE CPT- 4: 38227 07/24/2013 ROUTINE VENIPUNCTURE CPT- 4: 75346 03/13/2013 PRESCRIP TRANSMIT VIA ERX SY CPT-4: G8553 10/25/2012 ROUTINE VENIPUNCTURE CPT- 4: 24766 07/02/2012 PRESCRIP TRANSMIT VIA ERX SY CPT-4: G8553 12/26/2011 ROUTINE VENIPUNCTURE CPT- 4: 42483 10/20/2011 URINALYSIS NONAUTO W/O SCOPE CPT-4: 66839 09/15/2011 PRESCRIP TRANSMIT VIA ERX SY CPT-4: G8553 09/15/2011 ROUTINE VENIPUNCTURE CPT- 4: 54093 06/07/2011 PRESCRIP TRANSMIT VIA ERX SY CPT-4: G8553 04/27/2011 Vital Signs Date Vital 09/19/2017 Blood Pressure 1: 148/70 Code: 8480-6 BMI: 33.3 Code: 13052-5 Heart Rate 1: 82 bpm Height: 5'4" SpO2: 98% Weight: 197 lbs 07/21/2017 Blood Pressure 1: 160/62 Code: 8480-6 Blood Pressure 1: 144/68 Code: 8480-6 BMI: 33.3 Code: 52442-6 Heart Rate 1: 75 bpm Height: 5'4" SpO2: 98% Weight: 197 lbs 02/06/2017 Blood Pressure 1: 142/84 Code: 8480-6 BMI: 32.1 Code: 87092-1 Heart Rate 1: 76 bpm Height: 5'4" SpO2: 96% Weight: 190 lbs 02/03/2017 Blood Pressure 1: 142/84 Code: 8480-6 BMI: 32.2 Code: 53444-3 Heart Rate 1: 76 bpm Height: 5'4" SpO2: 96% Weight: 190 lbs 8 oz 10/17/2016 Blood Pressure 1: 136/90 Code: 8480-6 BMI: 31.6 Code: 17907-5 Heart Rate 1: 76 bpm Height: 5'4" SpO2: 98% Weight: 187 lbs 07/14/2015 Blood Pressure 1: 150/80 Code: 8480-6 BMI: 31.1 Code: 40279-8 Heart Rate 1: 74 bpm Height: 5'4" SpO2: 95% Weight: 184 lbs 11/17/2014 Blood Pressure 1: 142/88 Code: 8480-6 BMI: 32.3 Code: 35928-1 Heart Rate 1: 72 bpm Height: 5'4" Weight: 191 lbs 05/19/2014 Blood Pressure 1: 136/74 Code: 8480-6 BMI: 32.8 Code: 74712-0 Heart Rate 1: 72 bpm Height: 5'4" Weight: 194 lbs 11/04/2013 Blood Pressure 1: 154/76 Code: 8480-6 BMI: 31.4 Code: 12098-4 Heart Rate 1: 76 bpm Height: 5'4" Weight: 186 lbs 08/05/2013 Blood Pressure 1: 150/78 Code: 8480-6 BMI: 30.9 Code: 30817-1 Heart Rate 1: 60 bpm Height: 5'4" Weight: 183 lbs 05/22/2013 Blood Pressure 1: 156/76 Code: 8480-6 BMI: 31.8 Code: 36770-7 Heart Rate 1: 72 bpm Height: 5'4" Weight: 188 lbs 02/20/2013 Blood Pressure 1: 138/78 Code: 8480-6 BMI: 32.1 Code: 34029-5 Heart Rate 1: 72 bpm Height: 5'4" Weight: 190 lbs 10/25/2012 Blood Pressure 1: 138/82 Code: 8480-6 BMI: 31.8 Code: 62076-2 Heart Rate 1: 72 bpm Height: 5'4" Weight: 188 lbs 07/04/2012 Blood Pressure 1: 136/70 Code: 8480-6 Heart Rate 1: 72 bpm Weight: 187 lbs 12/26/2011 Blood Pressure 1: 152/82 Code: 8480-6 BMI: 30.4 Code: 33741-3 Heart Rate 1: 78 bpm Height: 5'4" Respiratory Rate: 16 bpm Weight: 180 lbs 10/26/2011 Blood Pressure 1: 140/64 Code: 8480-6 Heart Rate 1: 64 bpm Weight: 181 lbs 8 oz 09/15/2011 Blood Pressure 1: 152/82 Code: 8480-6 BMI: 30.8 Code: 06273-8 Heart Rate 1: 60 bpm Height: 5'4" Temperature: 36.8 (C) / 98.3 (F) Weight: 182 lbs 06/07/2011 Blood Pressure 1: 154/80 Code: 8480-6 05/10/2011 Blood Pressure 1: 122/66 Code: 8480-6 BMI: 30.7 Code: 76293-0 Heart Rate 1: 66 bpm Height: 5'4" Respiratory Rate: 12 bpm Weight: 181 lbs 8 oz 04/27/2011 Blood Pressure 1: 136/70 Code: 8480-6 BMI: 30.6 Code: 08594-4 Heart Rate 1: 72 bpm Height: 5'4" [...] back pain[ICD10: M54.5] Katie Abdalla MD, [facility] CPT-4: 55426 09/19/2017 ([id number]) 71219 EST. PATIENT, LEVEL III Diagnosis: Essential (primary) hypertension[ICD10: I10] Diagnosis: Epigastric pain[ICD10: R10.13] [facility] CPT-4: 50021 07/21/2017 ([id number]) 68918 EST. PATIENT, LEVEL III Diagnosis: Low back pain[ICD10: M54.5] [facility] CPT-4: 42862 02/03/2017 ([id number]) 53921 EST. PATIENT, LEVEL IV Diagnosis: Encounter for gynecological examination (general) (routine) without abnormal findings[ICD10: Z01.419] Tori Abdalla MD [facility] CPT-4: 97326 10/17/2016 09844 EST. PATIENT, LEVEL III Diagnosis: Low back pain[ICD10: M54.5] Katie Abdalla MD [facility] CPT-4: 05273 07/14/2015 ([id number]) 77006 EST. PATIENT, LEVEL III Diagnosis: ESSENTIAL HYPERTENSION[ICD9: 401.9] Marcela Abdalla MD [facility] CPT- 4: 61063 11/17/2014 ([id number]) 40080 EST. PATIENT, LEVEL III Diagnosis: ESSENTIAL HYPERTENSION[ICD9: 401.9] Diagnosis: HYPERLIPIDEMIA[ICD9: 272.4] Diagnosis: HYPOTHYROIDISM[ICD9: 244.9] Marcela Abdalla MD [facility] CPT-4: 12667 05/19/2014 ([id number]) 31849 EST. PATIENT, LEVEL IV Diagnosis: HYPOTHYROIDISM[ICD9: 244.9] Diagnosis: ESSENTIAL HYPERTENSION[SNOMED: 84611991] Marcela Abdalla MD [facility] CPT-4: 72512 11/04/2013 ([id number]) 72576 EST. PATIENT, LEVEL III Diagnosis: ESSENTIAL HYPERTENSION[SNOMED: 19934759] Marcela Abdalla MD [facility] CPT-4: 89100 08/05/2013 ([id number]) 93206 EST. PATIENT, LEVEL III Diagnosis: ESSENTIAL HYPERTENSION[SNOMED: 75145355] Marcela Abdalla MD [facility] CPT-4: 57489 05/22/2013 ([id number]) 92662 EST. PATIENT, LEVEL III Diagnosis: ESSENTIAL HYPERTENSION[SNOMED: 20577898] Marcela Abdalla MD [facility] CPT-4: 33188 02/20/2013 ([id number]) 09698 EST. PATIENT, LEVEL IV Diagnosis: ESSENTIAL HYPERTENSION[SNOMED: 71422221] Diagnosis: HYPERLIPIDEMIA[ICD9: 272.4] Diagnosis: NONSPECIF SKIN ERUPT NEC[ICD9: 782.1] Marcela Abdalla MD, [facility] CPT-4: 78957 10/25/[id number]) 97021 EST. PATIENT, LEVEL IV Diagnosis: ESSENTIAL HYPERTENSION[SNOMED: 24240845] Diagnosis: HYPERLIPIDEMIA[ICD9: 272.4] Marcela Abdalla MD, [facility] CPT-4: 57105 07/04/2012 ([id number]) 65444 EST. PATIENT, LEVEL IV Diagnosis: ESSENTIAL HYPERTENSION[SNOMED: 20176971] Diagnosis: HYPERLIPIDEMIA[ICD9: 272.4] Marcela Abdalla MD, [facility] CPT-4: 76437 12/26/2011 ([id number]) 95703 EST. PATIENT, LEVEL IV Diagnosis: ESSENTIAL HYPERTENSION[SNOMED: 49501369] Diagnosis: HYPERLIPIDEMIA[ICD9: 272.4] Marcela Abdalla MD, [facility] CPT-4: 26771 10/26/2011 ([id number]) 67766 EST. PATIENT, LEVEL IV Diagnosis: BPPV (benign paroxysmal positional vertigo)[ICD9: 386.11] Diagnosis: ESSENTIAL HYPERTENSION[SNOMED: 30506974] Tori Abdalla MD, [facility] CPT-4: 43007 09/15/2011 55946 EST. PATIENT, LEVEL III Diagnosis: Lesion of oral mucosa[ICD9: 528.9] Diagnosis: Rash and nonspecific skin eruption[ICD9: 782.1] Marcela Abdalla MD, [facility] CPT-4: 00159 05/10/2011 39722 EST. PATIENT, LEVEL IV Diagnosis: ESSENTIAL HYPERTENSION[SNOMED: 97697822] Diagnosis: Mouth sores[ICD9: 528.9] Marcela Abdalla MD, [facility] CPT-4: 41429 04/27/2011 Plan of Care Planned Activity Notes Codes Status Date App[facility]ment[phone] [facility] [place] ([facility] min) Complex 09/19/2017 Patient Education: Patient Medication Summary Completed 09/19/2017 App[facility]ment[phone] [phone] (30 min) Complex 07/21/2017 Patient Education: Patient Medication Summary Completed 07/21/2017 Patient Education: Obesity Completed 07/21/2017 Patient Education: 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 Completed 07/21/2017 Appointment: Katie Ellis WPtel: [facility] MCR - Annual Wellness Visit 02/06/2017 Patient Education: Patient Medication Summary Completed 02/06/2017 Patient Education: Obesity Completed 02/06/2017 Appointment: Tori Duvall WPtel: [phone] (30 min) Complex 02/03/2017 Patient Education: Patient Medication Summary Completed 02/03/2017 Patient Education: Obesity Completed 02/03/2017 Appointment: Tori Duvall WPtel: [address] [place], [place] [phone] [facility] 10/17/2016 Patient Education: Patient Medication Summary Completed 10/17/2016 Patient Education: Obesity Completed 10/17/2016 Appointment: (30 min) Complex 07/14/2015 Patient Education: Patient Medication Summary Completed 07/14/2015 Appointment: Marcela Abdalla WPtel[facility] Follow up 11/17/2014 Patient Education: Patient Medication Summary Completed 11/17/2014 Patient Education: 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 Completed 11/17/2014 Appointment: Marcela Abdalla WPtel: [facility] Follow up 05/19/2014 Patient Education: Patient Medication Summary Completed 05/19/2014 Patient Education: 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 Completed 05/19/2014 Appointment: Marcela Abdalla WPtel: [facility] Follow up 11/04/2013 Patient Education: Patient Medication Summary Completed 11/04/2013 Patient Education: 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 Completed 11/04/2013 Appointment: Marcela Abdalla WPtel: [facility] Follow up 08/05/2013 Patient Education: Patient Medication Summary Completed 08/05/2013 Patient Education: 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 Completed 08/05/2013 Patient Education: Patient Medication Summary Completed 07/24/2013 Patient Education: 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 Completed 07/24/2013 Appointment: Marcela Abdalla WPtel: [address] [place], [place] [phone] Follow up 05/22/2013 Patient Education: Patient Medication Summary Completed 05/22/2013 Patient Education: 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 Completed 05/22/2013 Patient Education: Patient Medication Summary Completed 03/13/2013 Patient Education: 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 Completed 03/13/2013 Appointment: Marcela Abdalla WPtel: [address] [place], [place] [phone] Follow up 02/20/2013 Patient Education: Patient Medication Summary Completed 02/20/2013 Patient Education: 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 Completed 02/20/2013 Appointment: Marcela Abdalla WPtel: [address] [place], [place] [phone] Follow up 10/25/2012 Patient Education: Patient Medication Summary Completed 10/25/2012 Patient Education: 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 Completed 10/25/2012 Appointment: Marcela Abdalla WPtel: [address] [place], [place] [phone] Established Patient Preventative visit 07/04/2012 Patient Education: Patient Medication Summary Completed 07/04/2012 Patient Education: 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 Completed 07/04/2012 Appointment: Marcela Abdalla WPtel: [address] [place], [place] [phone] Lab Draw 07/02/2012 Patient Education: Patient Medication Summary Completed 07/02/2012 Patient Education: High Blood Pressure: Essential 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 Completed 07/02/2012 Appointment: Marcela Abdalla WPtel: [address] [place], [place] [phone] Other 12/26/2011 Patient Education: Patient Medication Summary Completed 12/26/2011 Patient Education: High Blood Pressure: Essential 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 Completed 12/26/2011 Appointment: Marcela Abdalla WPtel: [address] [place], [place] [phone] Other 10/26/2011 Patient Education: Patient Medication Summary Completed 10/26/2011 Patient Education: High Blood Pressure: Essential 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 Completed 10/26/2011 Appointment: Marcel[facility]alla [id number] [place] [facility] 10/20/2011 Patient Education: Patient Medication Summary Completed 10/20/2011 Patient Education: High Blood Pressure: Essential 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 Completed 10/20/2011 App[facility]ment[facility] Tor[facility]vall [facility] [phone] [id number] [place] Lab Draw 09/15/2011 Patient Education: Patient Medication Summary Completed 09/15/2011 Patient Education: .Amazing charts Paroxysmal positional vertigo Completed 09/15/2011 Patient Education: High Blood Pressure: Essential 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 Completed 09/15/2011 Appointment: Marcela Abdalla WPtel: [id number] Lab Draw 06/07/2011 Patient Education: Patient Medication Summary Completed 06/07/2011 Patient Education: High Blood Pressure: Essential 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 Completed 06/07/2011 Appointment: Marcela Abdalla WPtel: [id number] Other 05/10/2011 Patient Education: Patient Medication Summary Completed 05/10/2011 Appointment: Marcela Abdalla W[facility]el: [facility] [id number] Follow up 05/04/2011 Appointment: Marcela Abdalla WPtel: [id number] Other 04/27/2011 Patient Education: Patient Medication Summary Completed 04/27/2011 Referral: Seth Thorne WPtel: [address], [address] [id number] [place] Referral Relationship Instructions No Instructions
--- OUTSIDE RECORDS SUMMARY | 2019-01-10 12:58 | XMS REPORT | Continuity of Care Document ---
Author Organization Unknown Address Unknown Allergies Active Description Code Type Severity Reaction Onset Reported/Identified Relationship to Patient Clinical Status Yes SULFA SULFA Mild HIVES 04/21/2010 Medications There is no data. 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 06/20/2012 Ot 785.1 PALPITATIONS 06/20/2012 Ot 786.50 CHEST PAIN NOS 06/20/2012 Ot V58.69 OTH MED,LT,CURRENT USE 09/13/2012 Ot 785.1 PALPITATIONS 09/13/2012 Ot 786.50 CHEST PAIN NOS 08/05/2014 JOSÉ MIGUEL VILLEGAS DO Ot 427.69 PREMATURE BEATS NEC 08/05/2014 JOSÉ MIGUEL VILLEGAS DO Ot 785.1 PALPITATIONS 08/05/2014 JOSÉ MIGUEL VILLEGAS DO Ot 786.50 CHEST PAIN NOS 10/09/2014 REENA VILLELA MD Ot 272.4 10/09/2014 REENA VILLELA MD Ot 401.9 10/09/2014 REENA VILLELA MD Ot 429.9 10/09/2014 REENA VILLELA MD Ot 433.10 10/09/2014 REENA VILLELA MD Ot 785.1 07/24/2015 CAMMIE ARREOLA APRN Ot M54.5 08/05/2015 CAMMIE ARREOLA INSOLVENCY PRACTITIONER Ot M54.5 09/09/2015 CAMMIE ARREOLA INSOLVENCY PRACTITIONER Ot M54.5 10/02/2015 CAMMIE ARREOLA INSOLVENCY PRACTITIONER Ot M54.5 LOW BACK PAIN 12/31/2015 Ot 397.0 TRICUSPID VALVE DISEASE 12/31/2015 Ot 424.0 MITRAL VALVE DISORDER 12/31/2015 Ot 429.3 CARDIOMEGALY 12/31/2015 Ot 785.1 PALPITATIONS 12/31/2015 Ot 786.50 CHEST PAIN NOS 12/31/2015 Ot 427.69 PREMATURE BEATS NEC 12/31/2015 Ot 785.0 TACHYCARDIA NOS 12/31/2015 Ot 785.1 PALPITATIONS 12/31/2015 Ot 786.50 CHEST PAIN NOS 12/31/2015 Ot 785.1 PALPITATIONS 12/31/2015 Ot 786.50 CHEST PAIN NOS 12/31/2015 ALICIA SCHULTZ, TELMA Lea Ot V76.12 OTH SCREEN MAMMO-MALIGN NEOPLASM OF [place] 12/31/2015 MANOHAR SCHULTZ, REENA [place] Ot 272.4 HYPERLIPIDEMIA NEC/NOS 12/31/2015 MANOHAR SCHULTZ, REENA [place] Ot 401.9 HYPERTENSION NOS 12/31/2015 MANOHAR SCHULTZ, REENA [place] Ot 429.9 HEART DISEASE NOS 12/31/2015 MANOHAR SCHULTZ, REENA [place] Ot 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 W O CEREBRAL IN 12/31/2015 MANOHAR SCHULTZ, REENA [place] Ot 785.1 PALPITATIONS 12/31/2015 CAMMIE ARREOLA INSOLVENCY PRACTITIONER Ot M54.5 LOW BACK PAIN 12/31/2015 CAMMIE ARREOLA INSOLVENCY PRACTITIONER Ot M54.5 LOW BACK PAIN 01/01/2016 CAMMIE ARREOLA INSOLVENCY PRACTITIONER Ot M41.9 SCOLIOSIS, UNSPECIFIED 01/01/2016 CAMMIE ARREOLA INSOLVENCY PRACTITIONER Ot M48.07 SPINAL STENOSIS, LUMBOSACRAL REGION 01/01/2016 CAMMIE ARREOLA INSOLVENCY PRACTITIONER Ot M51.26 OTHER INTERVERTEBRAL DISC DISPLACEMENT, 01/01/2016 CAMMIE ARREOLA INSOLVENCY PRACTITIONER Ot M51.36 OTHER INTERVERTEBRAL DISC DEGENERATION, 01/01/2016 CAMMIE ARREOLA INSOLVENCY PRACTITIONER Ot M41.9 SCOLIOSIS, UNSPECIFIED 01/01/2016 CAMMIE ARREOLA INSOLVENCY PRACTITIONER Ot M48.07 SPINAL STENOSIS, LUMBOSACRAL REGION 01/01/2016 MAXWELL, CAMMIE M INSOLVENCY PRACTITIONER Ot M51.26 OTHER INTERVERTEBRAL DISC DISPLACEMENT, 01/01/2016 CAMMIE ARREOLA INSOLVENCY PRACTITIONER Ot M51.36 OTHER INTERVERTEBRAL DISC DEGENERATION, 01/22/2016 CAMMIE ARREOLA INSOLVENCY PRACTITIONER Ot M41.9 SCOLIOSIS, UNSPECIFIED 01/22/2016 CAMMIE ARREOLA INSOLVENCY PRACTITIONER Ot M48.07 SPINAL STENOSIS, LUMBOSACRAL REGION 01/22/2016 CAMMIE ARREOLA INSOLVENCY PRACTITIONER Ot M51.26 OTHER INTERVERTEBRAL DISC DISPLACEMENT, 01/22/2016 CAMMIE ARREOLA INSOLVENCY PRACTITIONER Ot M51.36 OTHER INTERVERTEBRAL DISC DEGENERATION, 09/07/2016 Ot 397.0 TRICUSPID VALVE DISEASE 09/07/2016 Ot 424.0 MITRAL VALVE DISORDER 09/07/2016 Ot 429.3 CARDIOMEGALY 09/07/2016 Ot 785.1 PALPITATIONS 09/07/2016 Ot 786.50 CHEST PAIN NOS 09/07/2016 Ot 427.69 PREMATURE BEATS NEC 09/07/2016 Ot 785.0 TACHYCARDIA NOS 09/07/2016 Ot 785.1 PALPITATIONS 09/07/2016 Ot 786.50 CHEST PAIN NOS 09/07/2016 Ot 785.1 PALPITATIONS 09/07/2016 Ot 786.50 CHEST PAIN NOS 09/07/2016 ALICIA SCHULTZ, TELMA Lea Ot V76.12 OTH SCREEN MAMMO-MALIGN NEOPLASM OF [place] 09/07/2016 REENA VILLELA MD Ot 272.4 HYPERLIPIDEMIA NEC/NOS 09/07/2016 REENA VILLELA MD Ot 401.9 HYPERTENSION NOS 09/07/2016 REENA VILLELA MD Ot 429.9 HEART DISEASE NOS 09/07/2016 REENA VILLELA MD Ot 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 W O CEREBRAL IN 09/07/2016 REENA VILLELA MD Ot 785.1 PALPITATIONS 09/07/2016 CAMMIE ARREOLA INSOLVENCY PRACTITIONER Ot M54.5 LOW BACK PAIN 09/07/2016 CAMMIE ARREOLA INSOLVENCY PRACTITIONER Ot M41.9 SCOLIOSIS, UNSPECIFIED 09/07/2016 CAMMIE ARREOLA INSOLVENCY PRACTITIONER Ot M48.07 SPINAL STENOSIS, LUMBOSACRAL REGION 09/07/2016 CAMMIE ARREOLA INSOLVENCY PRACTITIONER Ot M51.26 OTHER INTERVERTEBRAL DISC DISPLACEMENT, 09/07/2016 CAMMIE ARREOLA INSOLVENCY PRACTITIONER Ot M51.36 OTHER INTERVERTEBRAL DISC DEGENERATION, 09/12/2016 Ot 397.0 TRICUSPID VALVE DISEASE 09/12/2016 Ot 424.0 MITRAL VALVE DISORDER 09/12/2016 Ot 429.3 CARDIOMEGALY 09/12/2016 Ot 785.1 PALPITATIONS 09/12/2016 Ot 786.50 CHEST PAIN NOS 09/12/2016 Ot 427.69 PREMATURE BEATS NEC 09/12/2016 Ot 785.0 TACHYCARDIA NOS 09/12/2016 Ot 785.1 PALPITATIONS 09/12/2016 Ot 786.50 CHEST PAIN NOS 09/12/2016 Ot 785.1 PALPITATIONS 09/12/2016 Ot 786.50 CHEST PAIN NOS 09/12/2016 ALICIA SCHULTZ, TELMA Lea Ot V76.12 OTH SCREEN MAMMO-MALIGN NEOPLASM OF [place] 09/12/2016 REENA VILLELA MD Ot 272.4 HYPERLIPIDEMIA NEC/NOS 09/12/2016 REENA VILLELA MD Ot 401.9 HYPERTENSION NOS 09/12/2016 REENA VILLELA MD Ot 429.9 HEART DISEASE NOS 09/12/2016 REENA VILLELA MD Ot 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 W O CEREBRAL IN 09/12/2016 REENA VILLELA MD Ot 785.1 PALPITATIONS 09/12/2016 CAMMIE ARREOLA INSOLVENCY PRACTITIONER Ot M54.5 LOW BACK PAIN 09/12/2016 CAMMIE ARREOLA INSOLVENCY PRACTITIONER Ot M41.9 SCOLIOSIS, UNSPECIFIED 09/12/2016 CAMMIE ARREOLA INSOLVENCY PRACTITIONER Ot M48.07 SPINAL STENOSIS, LUMBOSACRAL REGION 09/12/2016 CAMMIE ARREOLA INSOLVENCY PRACTITIONER Ot M51.26 OTHER INTERVERTEBRAL DISC DISPLACEMENT, 09/12/2016 CAMMIE ARREOLA INSOLVENCY PRACTITIONER Ot M51.36 OTHER INTERVERTEBRAL DISC DEGENERATION, 10/06/2016 CAMMIE ARREOLA INSOLVENCY PRACTITIONER Ot M54.5 LOW BACK PAIN 11/17/2016 CAMMIE ARREOLA INSOLVENCY PRACTITIONER Ot M54.5 LOW BACK PAIN 12/06/2016 CAMMIE ARREOLA INSOLVENCY PRACTITIONER Ot M54.5 LOW BACK PAIN 08/20/2017 ASHLEY MANN DO Ot M79.605 PAIN IN LEFT LEG 08/20/2017 ASHLEY MANN DO Ot M79.662 PAIN IN LEFT LOWER LEG 07/20/2018 MCKINLEY AMBROSE MD Ot M17.0 BILATERAL PRIMARY OSTEOARTHRITIS OF KNEE 08/10/2018 MCKINLEY AMBROSE MD Ot M17.0 BILATERAL PRIMARY OSTEOARTHRITIS OF KNEE 10/07/2018 MCKINLEY AMBROSE MD Ot M17.0 BILATERAL PRIMARY OSTEOARTHRITIS OF KNEE 2018 MCKINLEY AMBROSE MD Ot M17.0 BILATERAL PRIMARY OSTEOARTHRITIS OF KNEE 12/13/2018 ALICIA SCHULTZ, TELMA Lea Ot V76.12 OTH SCREEN MAMMO-MALIGN NEOPLASM OF [place] 12/13/2018 REENA VILLELA MD Ot 272.4 HYPERLIPIDEMIA NEC/NOS 12/13/2018 REENA VILLELA MD Ot 401.9 HYPERTENSION NOS 12/13/2018 REENA VILLELA MD Ot 429.9 HEART DISEASE NOS 12/13/2018 REENA VILLELA MD Ot 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 W O CEREBRAL IN 12/13/2018 REENA VILLELA MD Ot 785.1 PALPITATIONS 12/13/2018 CAMMIE ARREOLA INSOLVENCY PRACTITIONER Ot M54.5 LOW BACK PAIN 12/13/2018 CAMMIE ARREOLA INSOLVENCY PRACTITIONER Ot M41.9 SCOLIOSIS, UNSPECIFIED 12/13/2018 CAMMIE ARREOLA INSOLVENCY PRACTITIONER Ot M48.07 SPINAL STENOSIS, LUMBOSACRAL REGION 12/13/2018 CAMMIE ARREOLA INSOLVENCY PRACTITIONER Ot M51.26 OTHER INTERVERTEBRAL DISC DISPLACEMENT, 12/13/2018 CAMMIE ARREOLA INSOLVENCY PRACTITIONER Ot M51.36 OTHER INTERVERTEBRAL DISC DEGENERATION, 01/01/2019 ALICIA SCHULTZ, TELMA Lea Ot V76.12 OTH SCREEN MAMMO-MALIGN NEOPLASM OF [place] 01/01/2019 REENA VILLELA MD Ot 272.4 HYPERLIPIDEMIA NEC/NOS 01/01/2019 REENA VILLELA MD Ot 401.9 HYPERTENSION NOS 01/01/2019 REENA VILLELA MD Ot 429.9 HEART DISEASE NOS 01/01/2019 REENA VILLELA MD Ot 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 W O CEREBRAL IN 01/01/2019 REENA VILLELA MD Ot 785.1 PALPITATIONS 01/01/2019 CAMMIE ARREOLA INSOLVENCY PRACTITIONER Ot M54.5 LOW BACK PAIN 01/01/2019 CAMMIE ARREOLA INSOLVENCY PRACTITIONER Ot M41.9 SCOLIOSIS, UNSPECIFIED 01/01/2019 CAMMIE ARREOLA INSOLVENCY PRACTITIONER Ot M48.07 SPINAL STENOSIS, LUMBOSACRAL REGION 01/01/2019 CAMMIE ARREOLA INSOLVENCY PRACTITIONER Ot M51.26 OTHER INTERVERTEBRAL DISC DISPLACEMENT, 01/01/2019 CAMMIE ARREOLA INSOLVENCY PRACTITIONER Ot M51.36 OTHER INTERVERTEBRAL DISC DEGENERATION, 01/01/2019 CAMMIE ARREOLA INSOLVENCY PRACTITIONER Ot R59.0 LOCALIZED ENLARGED LYMPH NODES [facility]/01[facility] V99.99 01/02/2019 [facility] Ot 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, LYMPH NODES OF [facility] 01/03/2019 CAMMIE ARREOLA INSOLVENCY PRACTITIONER Ot R59.0 LOCALIZED ENLARGED LYMPH NODES 01/04/2019 ALICIA SCHULTZ, TELMA Lea Ot V76.12 OTH SCREEN MAMMO-MALIGN NEOPLASM OF [place] 01/04/2019 REENA VILLELA MD Ot 272.4 HYPERLIPIDEMIA NEC/NOS 01/04/2019 REENA VILLELA MD J Ot 401.9 HYPERTENSION NOS 01/04/2019 REENA VILLELA MD J Ot 429.9 HEART DISEASE NOS 01/04/2019 REENA VILLELA MD Ot 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 W O CEREBRAL IN 01/04/2019 REENA VILLELA MD J Ot 785.1 PALPITATIONS 01/04/2019 CAMMIE ARREOLA INSOLVENCY PRACTITIONER Ot M54.5 LOW BACK PAIN 01/04/2019 CAMMIE ARREOLA INSOLVENCY PRACTITIONER Ot M41.9 SCOLIOSIS, UNSPECIFIED 01/04/2019 CAMMIE ARREOLA INSOLVENCY PRACTITIONER Ot M48.07 SPINAL STENOSIS, LUMBOSACRAL REGION 01/04/2019 CAMMIE ARREOLA INSOLVENCY PRACTITIONER Ot M51.26 OTHER INTERVERTEBRAL DISC DISPLACEMENT, 01/04/2019 CAMMIE ARREOLA INSOLVENCY PRACTITIONER Ot M51.36 OTHER INTERVERTEBRAL DISC DEGENERATION, 01/04/2019 CAMMIE ARREOLA INSOLVENCY PRACTITIONER Ot R59.0 LOCALIZED ENLARGED LYMPH NODES 01/04/[facility] 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, LYMPH NODES OF A 01/07/2019 [facility] CARRINGTON Ot C83.30 DIFFUSE LARGE B-CELL LYMPHOMA, UNSPECIFI 01/07/2019 [facility] CARRINGTON Ot I34.0 NONRHEUMATIC MITRAL (VALVE) INSUFFICIENC 01/07/2019 [facility] CARR[facility] Ot Z01.810 ENCOUNTER FOR PREPROCEDURAL CARDIOVASCUL 01/08/2019 TELMA VARGAS MD Ot V76.12 OTH SCREEN MAMMO-MALIGN NEOPLASM OF [place] 01/08/2019 REENA VILLELA MD Ot 272.4 HYPERLIPIDEMIA NEC/NOS 01/08/2019 REENA VILLELA MD Ot 401.9 HYPERTENSION NOS 01/08/2019 REENA VILLELA MD Ot 429.9 HEART DISEASE NOS 01/08/2019 REENA VILLELA MD Ot 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 CEREBRAL IN 01/08/2019 REENA VILLELA MD Ot 785.1 PALPITATIONS 01/08/2019 CAMMIE ARREOLA INSOLVENCY PRACTITIONER Ot M54.5 LOW BACK PAIN 01/08/2019 CAMMIE ARREOLA INSOLVENCY PRACTITIONER Ot M41.9 SCOLIOSIS, UNSPECIFIED 01/08/2019 CAMMIE ARREOLA INSOLVENCY PRACTITIONER Ot M48.07 SPINAL STENOSIS, LUMBOSACRAL REGION 01/08/2019 CAMMIE ARREOLA INSOLVENCY PRACTITIONER Ot M51.26 OTHER INTERVERTEBRAL DISC DISPLACEMENT, 01/08/2019 CAMMIE ARREOLA INSOLVENCY PRACTITIONER Ot M51.36 OTHER INTERVERTEBRAL DISC DEGENERATION, 01/08/2019 CAMMIE ARREOLA APRN Ot R59.0 LOCALIZED ENLARGED LYMPH NODES 01/08/2019 WILLIE STAPLES DO Ot 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 Results There is no data. Encounters ACCT No. Visit Date/Time Discharge Status Pt. Type Provider Facility Loc./Unit Complaint [id number] 01/04/2019 14:00:00 01/04/2019 23:59:59 CLS Preadmit ISIS CARRINGTON [facility] CARD DIFFUSE LARGE B-CELL LYMPHOMA [id number] 01/03/2019 09:50:00 01/03/2019 23:59:59 CLS Outpatient ISIS CARRINGTON [facility] CARD DIFFUSE LARGE B CELL LYMPHOMA [id number] 12/24/2018 11:04:00 12/24/2018 23:59:59 CLS Outpatient WILLIE STAPLES DO [facility] RAD RIGHT SUPERCLAVICULAR MASS [id number] 12/13/2018 17:06:00 12/13/2018 23:59:59 CLS Outpatient CAMMIE ARREOLA APRN [facility] RAD R NECK SWELLING [id number] 2018 00:10:00 2018 23:59:59 CLS Preadmit MCKINLEY AMBROSE MD [facility] REHAB B/L KNEE DJD [id number] 09/03/2018 14:15:00 10/07/2018 00:01:00 DIS Outpatient MCKINLEY AMBROSE MD [facility] REHAB B/L KNEE DJD [id number] 08/20/2017 16:33:00 08/20/2017 18:45:00 DIS Emergency ASHLEY MANN DO [facility] ER PAIN IN R LEG [id number] 11/10/2016 09:44:00 12/06/2016 16:19:00 DIS Outpatient CAMMIE ARREOLA APRN [facility] REHAB BACK PAIN [id number] 12/31/2015 11:19:00 12/31/2015 23:59:59 CLS Outpatient CAMMIE ARREOLA APRN [facility] RAD LOW BACK PAIN [id number] 10/02/2015 10:34:00 10/02/2015 16:45:00 DIS Outpatient CAMMIE ARREOLA APRN [facility] REHAB LOW BACK PAIN [id number] 07/16/2015 13:43:00 07/16/2015 23:59:59 CLS Outpatient CAMMIE ARREOLA APRN [facility] RAD LOW BACK PAIN [id number] 09/08/2014 07:36:00 09/08/2014 23:59:59 CLS Outpatient MANOHAR SCHULTZ, REENA [place] [facility] CARD CAROTID ARTERY STENOSIS HTN HLE PALPATATIONS [id number] 08/05/2014 10:28:00 08/05/2014 16:04:00 DIS Emergency JOSÉ MIGUEL VILLEGAS DO [facility] ER MULTIPLE COMPLAINTS [id number] 09/17/2013 10:23:00 09/17/2013 23:59:59 CLS Outpatient TELMA VARGAS MD [facility] RAD SCREENING [id number] 01/10/2019 12:24:00 Document Registration [id number] 01/08/2019 14:29:00 ACT Outpatient ISIS CARRINGTON [facility] ONC [id number] 01/08/2019 09:33:00 ACT Outpatient ISIS CARRINGTON [facility] RAD DIFFUSE LARGE B CELL LYMPHOMA [id number] 09/14/2012 10:00:00 Document Registration [id number] 06/20/2012 11:47:00 Document Registration [id number] 06/19/2012 11:37:00 Document Registration [id number] 06/18/2012 09:47:00 Document Registration [id number] 06/15/2012 10:34:00 Document Registration [id number] 11/03/2011 14:44:00 Document Registration [id number] 07/19/2010 08:23:00 Document Registration
--- NOTE | 2019-01-10 13:29 | Progress Note-Post Operative ---
Post-Operative Progess Note Surgeon (s)/Boiling House Hand (s) Surgeon WILLIE STAPLES DO Boiling House Hand: na Pre-Operative Diagnosis diffuse b cell lymphoma Post-Operative Diagnosis same Procedure & Operative Findings Date of Procedure 01/10/19 Procedure Performed/Findings left subclavian vein port placement Anesthesia Type mac c local Estimated Blood Loss Estimated blood loss (mL): min Specimens/Packing Specimens Removed none WILLIE STAPLES DO January 10, 2019 13:29
--- NOTE | 2019-01-10 13:31 | Discharge Inst-Simple/Standard ---
Discharge Inst-Standard Patient Instructions/Follow Up Plan of Care/Instructions/FU: 2 weeks Anna Marie Activity as Tolerated: No Discharge Diet: Regular Diet Other Inst to Patient Follow up Appt: Make appointment for 2 week. Instructions: No lifting greater than 10 pounds. No strenuous activity. May shower in 24 hours, no tub bath or soaking. Use incentive spirometer at home as directed. No Smoking Skin/Wound Care: May remove bandages in 24 hours. You have special glue over incisions it will fall off on its own. Symptoms to Report: Appetite Changes, Extremity Discoloration, Numbness/Tingling, Swelling Increased, Bleeding Excessive, Eyesight Changes, Pain Increased, Urine Color Change, Constipation(Persistent), Fever over 101 degree F, Pain/Pressure in chest, Urinating Difficulty, Cough Up/Vomit Blood, Heart Beat Irreg/Pounding, Pain/Pressure in jaw, Vaginal Bleeding Increase, Cramps in feet or legs, Lightheadedness, Pain/Pressure in shoulder, Diarrhea(Persistent), Memory Changes Suddenly, Questions/Concerns, Weight gain consecutive days, Dizziness/Fainting, Nausea/Vomiting, Shortness of Breath, Weight gain over 2 pounds If questions or concerns contact your physician Or seek help at emergency department. WILLIE STAPLES DO January 10, 2019 13:31
--- NOTE | 2019-01-10 13:54 | Diagnostic Imaging Report ---
INDICATION: Port placement. TECHNIQUE: Single view chest 1:38 PM. CORRELATION STUDY: 08/05/2014 FINDINGS: Left subclavian Mcifha-U-Fjjn catheter has been placed, tip projecting over the cavoatrial junction. Heart size enlarged likely accentuated by technique. Vascular also slightly more prominent. Mildly prominent interstitial markings reflect mild edema. No focal infiltrate. Biapical pleural densities are again demonstrated, overall generally stable. No appreciable pneumothorax. IMPRESSION: 1. Interval placement of left subclavian Dinygc-M-Oirm catheter tip projecting over the low SVC. No pneumothorax post port placement. 2. Cardiac enlargement with what appears to be mild severity congestion. Dictated by: Dictated on workstation # [id number]
--- NOTE | 2019-01-10 13:54 | NUR ---
Initial visit: facilitated communication between pt and RN as pt had questions about her procedure. She also shared about her belief in [facility], and about the [facility] she attends in [place]. Pt is [employer] and demonstrated openness in sharing about her beliefs.
--- NOTE | 2019-01-10 14:30 | Anesthesia-General Post-Op ---
MAC Patient Condition Mental Status/LOC: Same as Preop Cardiovascular: Satisfactory Nausea/Vomiting: Absent Respiratory: Satisfactory Pain: Controlled Complications: Absent Post Op Complications Complications None Follow Up Care/Instructions Patient Instructions None needed. Anesthesiology Discharge Order Discharge Order Patient is doing well, no complaints, stable vital signs, no apparent adverse anesthesia problems. No complications reported per nursing. DORIS AYON CRNA January 10, 2019 14:30
--- OUTSIDE RECORDS SUMMARY | 2019-01-10 14:36 | XMS REPORT ---
Author Author KAUSHAL GRAY Organization [employer] Address Unknown Phone Unavailable Care Team Providers Care Custom Frame Assembler Name Role Phone KAUSHAL GRAY CP Unavailable Allergies, Adverse Reactions, Alerts Substance Reaction Event Type Sulfacetamide Sodium Info Not Available Drug Allergy Problems Problem Type Condition Code Onset Dates Condition Status Assessment Dental examination Z01.20 Active Medications No Known Medications Procedures Procedure Coding System Code Date Dental no charge CPT-4 D0099 March 01, 2016 Results No Known Results Summary Purpose [employer] Submission
--- NOTE | 2019-01-10 15:16 | Diagnostic Imaging Report ---
Indication: Fluoroscopy during left chest wall port placement. Fluoroscopy was provided for Dr. Thrasher during port placement. Twenty seconds of fluoroscopy was utilized. Images demonstrate left subclavian port with tip overlying SVC. Impression: Fluoroscopy during port placement. Dictated by: Dictated on workstation # [id number]
--- NOTE | 2019-01-13 13:20 | OPERATIVE REPORT ---
DATE OF SERVICE: 01/10/2019 PREOPERATIVE DIAGNOSIS: B-cell lymphoma. POSTOPERATIVE DIAGNOSIS: B-cell lymphoma. PROCEDURE: Left subclavian vein port placement. SURGEON: Willie Thrasher DO ANESTHESIA: MAC with local. ESTIMATED BLOOD LOSS: Minimal. COMPLICATIONS: None. INDICATIONS: The patient is an 83-year-old female with diffuse B-cell lymphoma, recently diagnosed. She needs port placed. She understands risks and benefits of procedure and wished to proceed with procedure. Consent was signed in the chart. PROCEDURE IN DETAIL: The patient was taken to the operating suite, prepped and draped in sterile fashion. Timeout was performed. Using micro access needle, the left subclavian vein was accessed. Dark nonpulsatile blood was withdrawn. Micro access wire was inserted through the needle and the needle was removed. Fluoroscopy assured proper placement. An 11 blade was used to make a small stab incision and a dilator was placed over the wire and the wire was removed. The regular guidewire was inserted through the sheath and the sheath was removed. Fluoroscopy assured proper placement. The wire was then secured. Local anesthetic was infiltrated around the area and as it was before the needle insertion. A 15 blade scalpel was used to make a skin incision for pocket creation. A pocket was created on the left chest with both cautery and blunt dissection. Dilator was then advanced over the guidewire under fluoroscopy and the wire and dilator were removed. The Groshong catheter was inserted through the sheath and the sheath was then removed. Catheter was cut to length using fluoroscopy, which was then attached to the port placed in the pocket. The port was then accessed without difficulty. It was then flushed with saline and then with heparin. The subcutaneous tissues were then reapproximated using 3-0 Vicryl. The area was then washed, dried. Skin Affix was placed over the incision. The patient tolerated procedure well without any complications. She was taken to recovery room in stable condition. Chest x-ray pending. Job ID: [id number] DocumentID: [id number] Dictated Date: 01/13/2019 08:35:53 Icer Hand Date: 01/13/2019 13:19:45 Dictated By: WILLIE THRASHER DO
== END 2019-01-10 15:00 | disposition home or self-care (01) ==
LOC: SDC 10:03
PROVIDERS: ATTEND Surgery
DX: C83.31 Diffuse large B-cell lymphoma, lymph nodes of head, face, and neck (principal); I25.10 Atherosclerotic heart disease of native coronary artery without angina pectoris; I10 Essential (primary) hypertension; I49.3 Ventricular premature depolarization; Z86.73 Personal history of transient ischemic attack (TIA), and cerebral infarction without residual deficits; Z79.899 Other long term (current) drug therapy
CPT/HCPCS: 71045; 87081

== ENCOUNTER → 2019-03-05 | Outpatient (CLI) | payer MEDICARE, OTHER ==
--- NOTE | 2019-03-05 16:28 | Diagnostic Imaging Report ---
EXAMINATION: PET/CT, subsequent. INDICATION: Diffuse large cell lymphoma. TECHNIQUE: After intravenous administration of 12.67 mCi of F18-FDG in the right antecubital fossa, a series of overlapping emission and transmission PET images was obtained. In the coronal, transaxial and sagittal planes, the area imaged extended from the skull base through the upper thighs. Patient's height is 66 inches and weight is 185 pounds. The patient's blood glucose level was 107. FINDINGS: The recent PET/CT exam of 01/08/2019 noted numerous metabolic lymph nodes in the neck, right supraclavicular region, and the mediastinum. On this study, those hypermetabolic nodes have resolved. The prominent soft tissue mass in the right supraclavicular region seen on the CT images of the prior study is no longer evident either. The previous exam did note hypermetabolic activity involving each lobe of the thyroid. A dedicated thyroid ultrasound exam was recommended for further evaluation, but to my knowledge, that study was not performed. On this exam, there is still hypermetabolic activity associated with each lobe of the thyroid. The maximum SUV of the left lobe is approximately 9 while the maximum SUV of the right lobe is 5.8. These SUV values are similar to the prior exam. No new area of hypermetabolic activity has developed to suggest neoplastic disease. As on the prior study, there is physiologic activity still present within the brain, the bowel, the kidneys, and the bladder. The CT images fail to show any sign of an acute abnormality. IMPRESSION: 1. There has been a marked improvement in the appearance of the PET/CT exam as the hypermetabolic nodes involving the neck, the right supraclavicular region, and the mediastinum seen on the prior study have essentially resolved. There is no new area of hypermetabolic activity to suggest neoplastic disease. 2. There is persistent hypermetabolic activity involving both lobes of the thyroid, particularly on the left. This finding is nonspecific. I would concur with the recommendation of the previous exam, however, that ultrasound of the thyroid be performed for further study. Dictated by: Dictated on workstation # [id number]
== END ==
LOC: RAD 08:38
PROVIDERS: ATTEND Internal Medicine Hematology & Oncology
DX: C83.31 Diffuse large B-cell lymphoma, lymph nodes of head, face, and neck (principal)

== ENCOUNTER 2019-06-12 14:56 | Outpatient (RCR) | payer MEDICARE, OTHER ==
[2019-04-10 10:33] LABS: BASOPHILS # (AUTO) 0.1 10^3/uL (0.0-0.1); BASOPHILS % (AUTO) 1 % (0-10); EOSINOPHILS # (AUTO) 0.2 10^3/uL (0.0-0.3); EOSINOPHILS % (AUTO) 4 % (0-10); HEMATOCRIT 39 % (35-52); HEMOGLOBIN 12.8 G/DL (11.5-16.0); LYMPHOCYTES % (AUTO) 21 % (12-44); MEAN CORPUSCULAR HEMOGLOBIN 31 PG (25-34); MEAN CORPUSCULAR HGB CONC 33 G/DL (32-36); MEAN CORPUSCULAR VOLUME 95 FL (80-99); MEAN PLATELET VOLUME 9.5 FL (7.4-10.4); MONOCYTES # (AUTO) 0.7 X 10^3 (0.0-1.0); MONOCYTES % (AUTO) 15 % (0-12); NEUTROPHILS # (AUTO) 2.9 X 10^3 (1.8-7.8); NEUTROPHILS % (AUTO) 59 % (42-75); PLATELET COUNT 328 10^3/uL (130-400); RED CELL DISTRIBUTION WIDTH 16.7 % (10.0-14.5)
[2019-04-10 11:03] LABS: ALANINE AMINOTRANSFERASE 23 U/L (0-55); ALBUMIN 3.9 GM/DL (3.2-4.5); ALKALINE PHOSPHATASE 70 U/L (40-136); BILIRUBIN,TOTAL 0.4 MG/DL (0.1-1.0); BUN/CREATININE RATIO 25; CALCIUM 9.7 MG/DL (8.5-10.1); CARBON DIOXIDE 27 MMOL/L (21-32); CHLORIDE 106 MMOL/L (98-107); GFR ESTIMATED > 60; GLUCOSE 87 MG/DL (70-105); POTASSIUM 4.3 MMOL/L (3.6-5.0); SODIUM 139 MMOL/L (135-145); TOTAL PROTEIN 6.6 GM/DL (6.4-8.2)
[2019-05-01 13:12] LABS: BASOPHILS # (AUTO) 0.1 10^3/uL (0.0-0.1); BASOPHILS % (AUTO) 2 % (0-10); EOSINOPHILS # (AUTO) 0.3 10^3/uL (0.0-0.3); EOSINOPHILS % (AUTO) 6 % (0-10); HEMATOCRIT 40 % (35-52); HEMOGLOBIN 12.9 G/DL (11.5-16.0); LYMPHOCYTES # (AUTO) 0.7 X 10^3 (1.0-4.0); LYMPHOCYTES % (AUTO) 18 % (12-44); MEAN CORPUSCULAR HEMOGLOBIN 31 PG (25-34); MEAN CORPUSCULAR HGB CONC 32 G/DL (32-36); MEAN CORPUSCULAR VOLUME 95 FL (80-99); MEAN PLATELET VOLUME 9.1 FL (7.4-10.4); MONOCYTES # (AUTO) 0.7 X 10^3 (0.0-1.0); MONOCYTES % (AUTO) 17 % (0-12); NEUTROPHILS # (AUTO) 2.3 X 10^3 (1.8-7.8); NEUTROPHILS % (AUTO) 58 % (42-75); PLATELET COUNT 284 10^3/uL (130-400); RED CELL DISTRIBUTION WIDTH 14.9 % (10.0-14.5); WHITE BLOOD COUNT 3.9 10^3/uL (4.3-11.0)
[2019-05-01 13:33] LABS: ALANINE AMINOTRANSFERASE 19 U/L (0-55); ALBUMIN 3.9 GM/DL (3.2-4.5); ALKALINE PHOSPHATASE 77 U/L (40-136); BILIRUBIN,TOTAL 0.4 MG/DL (0.1-1.0); BUN/CREATININE RATIO 23; CALCIUM 9.7 MG/DL (8.5-10.1); CARBON DIOXIDE 23 MMOL/L (21-32); CHLORIDE 108 MMOL/L (98-107); CREATININE SERUM 0.82 MG/DL (0.60-1.30); GFR ESTIMATED > 60; GLUCOSE 84 MG/DL (70-105); POTASSIUM 4.2 MMOL/L (3.6-5.0); SODIUM 139 MMOL/L (135-145); TOTAL PROTEIN 6.7 GM/DL (6.4-8.2)
== END 2019-07-08 | disposition home or self-care (01) ==
LOC: ONC 14:56
PROVIDERS: ATTEND Internal Medicine Hematology & Oncology
DX: C83.31 Diffuse large B-cell lymphoma, lymph nodes of head, face, and neck (principal); I10 Essential (primary) hypertension; E78.5 Hyperlipidemia, unspecified; M47.896 Other spondylosis, lumbar region; Z79.899 Other long term (current) drug therapy
CPT/HCPCS: 36415; 77295; 77300; 77334; 77336; 77402; 77417; 77470; 80053; 83615; 85025; 96523; 99213

== ENCOUNTER 2019-07-29 13:44 | Outpatient (RCR) | payer MEDICARE, OTHER ==
[2019-07-29 14:23] LABS: BASOPHILS % (AUTO) 1 % (0-10); EOSINOPHILS # (AUTO) 0.2 10^3/uL (0.0-0.3); EOSINOPHILS % (AUTO) 5 % (0-10); HEMATOCRIT 39 % (35-52); HEMOGLOBIN 12.8 G/DL (11.5-16.0); LYMPHOCYTES # (AUTO) 1.2 X 10^3 (1.0-4.0); LYMPHOCYTES % (AUTO) 28 % (12-44); MEAN CORPUSCULAR HEMOGLOBIN 31 PG (25-34); MEAN CORPUSCULAR HGB CONC 33 G/DL (32-36); MEAN CORPUSCULAR VOLUME 94 FL (80-99); MEAN PLATELET VOLUME 9.3 FL (7.4-10.4); MONOCYTES # (AUTO) 0.5 X 10^3 (0.0-1.0); MONOCYTES % (AUTO) 13 % (0-12); NEUTROPHILS # (AUTO) 2.3 X 10^3 (1.8-7.8); NEUTROPHILS % (AUTO) 54 % (42-75); PLATELET COUNT 338 10^3/uL (130-400); RED CELL DISTRIBUTION WIDTH 14.8 % (10.0-14.5); WHITE BLOOD COUNT 4.2 10^3/uL (4.3-11.0)
[2019-07-29 14:37] LABS: ALANINE AMINOTRANSFERASE 19 U/L (0-55); ALBUMIN 3.9 GM/DL (3.2-4.5); ALKALINE PHOSPHATASE 81 U/L (40-136); BILIRUBIN,TOTAL 0.3 MG/DL (0.1-1.0); BUN/CREATININE RATIO 26; CALCIUM 9.5 MG/DL (8.5-10.1); CARBON DIOXIDE 25 MMOL/L (21-32); CHLORIDE 107 MMOL/L (98-107); CREATININE SERUM 0.81 MG/DL (0.60-1.30); GFR ESTIMATED > 60; GLUCOSE 86 MG/DL (70-105); POTASSIUM 4.3 MMOL/L (3.6-5.0); SODIUM 139 MMOL/L (135-145); TOTAL PROTEIN 6.6 GM/DL (6.4-8.2)
== END 2019-10-11 14:40 | disposition home or self-care (01) ==
LOC: ONC 13:44
PROVIDERS: ATTEND Internal Medicine Hematology & Oncology
DX: Z45.2 Encounter for adjustment and management of vascular access device (principal); C83.31 Diffuse large B-cell lymphoma, lymph nodes of head, face, and neck; I10 Essential (primary) hypertension; E78.5 Hyperlipidemia, unspecified; M47.896 Other spondylosis, lumbar region; Z79.899 Other long term (current) drug therapy
CPT/HCPCS: 80053; 85025; 96523; 99213

== ENCOUNTER 2019-10-28 13:05 | Outpatient (RCR) | payer MEDICARE, OTHER ==
[2019-10-14 15:46] LABS: BASOPHILS # (AUTO) 0.1 10^3/uL (0.0-0.1); BASOPHILS % (AUTO) 1 % (0-10); EOSINOPHILS # (AUTO) 0.2 10^3/uL (0.0-0.3); EOSINOPHILS % (AUTO) 5 % (0-10); HEMATOCRIT 40 % (35-52); HEMOGLOBIN 12.8 G/DL (11.5-16.0); LYMPHOCYTES # (AUTO) 1.2 X 10^3 (1.0-4.0); LYMPHOCYTES % (AUTO) 25 % (12-44); MEAN CORPUSCULAR HEMOGLOBIN 30 PG (25-34); MEAN CORPUSCULAR HGB CONC 32 G/DL (32-36); MEAN CORPUSCULAR VOLUME 93 FL (80-99); MEAN PLATELET VOLUME 9.4 FL (7.4-10.4); MONOCYTES # (AUTO) 0.8 X 10^3 (0.0-1.0); MONOCYTES % (AUTO) 16 % (0-12); NEUTROPHILS # (AUTO) 2.5 X 10^3 (1.8-7.8); NEUTROPHILS % (AUTO) 53 % (42-75); PLATELET COUNT 304 10^3/uL (130-400); RED CELL DISTRIBUTION WIDTH 15.4 % (10.0-14.5); WHITE BLOOD COUNT 4.7 10^3/uL (4.3-11.0)
[2019-10-14 16:07] LABS: ALANINE AMINOTRANSFERASE 20 U/L (0-55); ALBUMIN 3.9 GM/DL (3.2-4.5); ALKALINE PHOSPHATASE 82 U/L (40-136); BILIRUBIN,TOTAL 0.3 MG/DL (0.1-1.0); BUN/CREATININE RATIO 24; CALCIUM 9.4 MG/DL (8.5-10.1); CARBON DIOXIDE 27 MMOL/L (21-32); CHLORIDE 107 MMOL/L (98-107); CREATININE SERUM 0.87 MG/DL (0.60-1.30); GFR ESTIMATED > 60; GLUCOSE 85 MG/DL (70-105); POTASSIUM 4.4 MMOL/L (3.6-5.0); SODIUM 141 MMOL/L (135-145); TOTAL PROTEIN 6.9 GM/DL (6.4-8.2)
[2019-10-15 14:12] LABS: BASOPHILS # (AUTO) 0.1 10^3/uL (0.0-0.1); BASOPHILS % (AUTO) 1 % (0-10); EOSINOPHILS # (AUTO) 0.2 10^3/uL (0.0-0.3); EOSINOPHILS % (AUTO) 4 % (0-10); HEMATOCRIT 40 % (35-52); LYMPHOCYTES % (AUTO) 25 % (12-44); MEAN CORPUSCULAR HEMOGLOBIN 30 PG (25-34); MEAN CORPUSCULAR HGB CONC 32 G/DL (32-36); MEAN CORPUSCULAR VOLUME 94 FL (80-99); MEAN PLATELET VOLUME 9.1 FL (7.4-10.4); MONOCYTES # (AUTO) 0.6 X 10^3 (0.0-1.0); MONOCYTES % (AUTO) 13 % (0-12); NEUTROPHILS # (AUTO) 2.4 X 10^3 (1.8-7.8); NEUTROPHILS % (AUTO) 57 % (42-75); PLATELET COUNT 285 10^3/uL (130-400); RED CELL DISTRIBUTION WIDTH 15.7 % (10.0-14.5); WHITE BLOOD COUNT 4.2 10^3/uL (4.3-11.0)
[2019-10-15 14:37] LABS: BILIRUBIN,TOTAL 0.3 MG/DL (0.1-1.0); CALCIUM 10.3 MG/DL (8.5-10.1); CREATININE SERUM 0.9 MG/DL (0.60-1.30); POTASSIUM 4.3 MMOL/L (3.6-5.0); TOTAL PROTEIN 6.9 GM/DL (6.4-8.2)
== END 2020-01-12 | disposition home or self-care (01) ==
LOC: ONC 13:05
PROVIDERS: ATTEND Internal Medicine Hematology & Oncology
DX: C83.31 Diffuse large B-cell lymphoma, lymph nodes of head, face, and neck (principal); I10 Essential (primary) hypertension; E78.5 Hyperlipidemia, unspecified; M47.896 Other spondylosis, lumbar region; Z79.899 Other long term (current) drug therapy
CPT/HCPCS: 36591; 80053; 83615; 85025; 99213

== ENCOUNTER → 2020-01-14 | Outpatient (CLI) | payer MEDICARE, OTHER ==
--- NOTE | 2020-01-14 13:53 | Diagnostic Imaging Report ---
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 EXAMINATION: After intravenous administration of 14.2 mCi of F18-FDG, a series of overlapping emission and transmission PET images was obtained. In the coronal, transaxial and sagittal planes, the area imaged extended from the skull base through the upper thighs. Patient height 5' 6", weight 187, blood glucose level 100. The previous PET/CT exam performed on 03/05/2019 is not available for direct comparison. The images of the exam stored on our PACS system was reviewed. The previous study noted marked improvement from the prior exam of 01/08/2019 as the hypermetabolic nodes involving the neck, right supraclavicular region and mediastinum had essentially resolved. There is no new activity to indicate neoplastic disease. On this exam there is still no new hypermetabolic focus to suggest the presence of malignancy. The previous study did show persistent hyper metabolic activity involving both lobes of the thyroid particularly the left lobe. Those findings are again evident and do not appear to have changed significantly. There is physiologic activity in the brain, kidneys, the bowel and the bladder. There is also now physiologic activity evident within the heart. This was not clearly visualized on the prior exam. This finding is nonspecific. The CT images still failed to show any sign of an acute cardiac abnormality. The vague groundglass densities in both lungs near the prior study are again evident and not significantly changed. Consequently suspect they are chronic in nature. IMPRESSION: 1. There is no new hypermetabolic focus to suggest recurrent neoplasm. 2. There is persistent hypermetabolic activity involving both lobes of thyroid. This finding however is similar to the prior study. 3. There is no acute abnormality identified. Dictated by: Dictated on workstation # [id number]
== END ==
LOC: RAD 09:48
PROVIDERS: ATTEND Nurse Practitioner Adult Health
DX: C83.31 Diffuse large B-cell lymphoma, lymph nodes of head, face, and neck (principal)

== ENCOUNTER 2020-02-18 10:35 | Outpatient (RCR) | payer MEDICARE, OTHER ==
[2020-02-18 10:51] LABS: BASOPHILS # (AUTO) 0.1 10^3/uL (0.0-0.1); BASOPHILS % (AUTO) 1 % (0-10); EOSINOPHILS # (AUTO) 0.2 10^3/uL (0.0-0.3); EOSINOPHILS % (AUTO) 4 % (0-10); HEMATOCRIT 40 % (35-52); LYMPHOCYTES # (AUTO) 1.7 X 10^3 (1.0-4.0); LYMPHOCYTES % (AUTO) 31 % (12-44); MEAN CORPUSCULAR HEMOGLOBIN 30 PG (25-34); MEAN CORPUSCULAR HGB CONC 32 G/DL (32-36); MEAN CORPUSCULAR VOLUME 94 FL (80-99); MEAN PLATELET VOLUME 8.9 FL (7.4-10.4); MONOCYTES # (AUTO) 0.6 X 10^3 (0.0-1.0); MONOCYTES % (AUTO) 12 % (0-12); NEUTROPHILS # (AUTO) 2.8 X 10^3 (1.8-7.8); NEUTROPHILS % (AUTO) 52 % (42-75); PLATELET COUNT 328 10^3/uL (130-400); WHITE BLOOD COUNT 5.3 10^3/uL (4.3-11.0)
[2020-02-18 11:26] LABS: ALANINE AMINOTRANSFERASE 23 U/L (0-55); ALBUMIN 3.9 GM/DL (3.2-4.5); ALKALINE PHOSPHATASE 83 U/L (40-136); BILIRUBIN,TOTAL 0.4 MG/DL (0.1-1.0); BUN/CREATININE RATIO 22; CALCIUM 9.6 MG/DL (8.5-10.1); CARBON DIOXIDE 23 MMOL/L (21-32); CHLORIDE 104 MMOL/L (98-107); CREATININE SERUM 0.85 MG/DL (0.60-1.30); GFR ESTIMATED > 60; GLUCOSE 89 MG/DL (70-105); POTASSIUM 4.5 MMOL/L (3.6-5.0); SODIUM 138 MMOL/L (135-145)
== END 2020-05-07 | disposition home or self-care (01) ==
LOC: ONC 10:35
PROVIDERS: ATTEND Internal Medicine Hematology & Oncology
DX: Z45.2 Encounter for adjustment and management of vascular access device (principal); C83.31 Diffuse large B-cell lymphoma, lymph nodes of head, face, and neck; I10 Essential (primary) hypertension; E78.5 Hyperlipidemia, unspecified; M47.896 Other spondylosis, lumbar region; Z79.899 Other long term (current) drug therapy
CPT/HCPCS: 80053; 83615; 85025; 96523; 99213

== ENCOUNTER → 2020-03-02 | Outpatient (CLI) | payer MEDICARE, OTHER ==
--- NOTE | 2020-03-02 12:14 | Diagnostic Imaging Report ---
PROCEDURE: US Thyroid. TECHNIQUE: Multiple real-time grayscale images were obtained of the thyroid in various projections. INDICATION: Abnormal PET/CT. COMPARISON: 03/18/2019 and PET/CT dated 01/14/2020 FINDINGS: The right lobe of the thyroid gland measures 4.6 x 2.0 x 1.5 cm. It demonstrates a diffusely heterogeneous echotexture. There is suggestion of a 1.4 x 1.1 x 0.9 cm ovoid isoechoic nodule, though this may have been present on prior imaging. The left lobe of thyroid gland measures 5.4 x 2.4 x 1.8 cm. The left lobe of thyroid gland is diffusely heterogeneous without discrete nodule. The isthmus is unremarkable. IMPRESSION: Possible 1.4 cm ovoid solid isoechoic nodule within the superior pole of the right thyroid lobe. There is suggestion that this was present on prior examination and may simply relate to underlying heterogeneity of the thyroid. A follow-up ultrasound is recommended in 6 months to reevaluate. Diffusely heterogeneous thyroid gland is again identified and stable without new left thyroid nodule. Dictated by: Dictated on workstation # [id number]
== END ==
LOC: RAD 10:53
PROVIDERS: ATTEND Internal Medicine Hematology & Oncology
DX: E07.89 Other specified disorders of thyroid (principal); R91.1 Solitary pulmonary nodule; R94.8 Abnormal results of function studies of other organs and systems
CPT/HCPCS: 76536

== ENCOUNTER 2020-06-17 12:29 | Observation (INO) | payer MEDICARE, OTHER ==
[~2020-06-17] VITALS: Ht 167 cm; Wt 86.7 kg
[2020-06-17] MEDS ORDERED: ONDANSETRON 4 MG/2 ML (SDV) Z0FRAN IVP ONE (12:30)
--- NOTE | 2020-06-17 12:36 | ED General ---
General Chief Complaint: Cardiac/General Problems Stated Complaint: HTN Source of Information: Patient Exam Limitations: No Limitations History of Present Illness Date Seen by Provider: Jun 17, 2020 Time Seen by Provider: 12:36 Initial Comments To ER by EMs from home with c/o lethargy, nausea, vomiting, HTN. EMS arrived and found BP 200s/100s. Patient denies headache or chest pain or shortness of breath. Salley ok upon initially awakening this morning. Timing/Duration: 1-2 Days Severity: Moderate Associated Systoms: Nausea/Vomiting Allergies and Home Medications Allergies Coded Allergies: sulfamethoxazole (Verified Allergy, Unknown, 01/11/19) trimethoprim (Verified Allergy, Unknown, 01/11/19) Uncoded Allergies: SULFA (Allergy, Mild, HIVES, 04/21/10) Home Medications Lisinopril 10 Mg Tablet, 10 MG PO DAILY, (Reported) Meloxicam 7.5 Mg Tablet, 7.5 MG PO DAILY Prescribed by: ASHLEY MANN on 08/20/17 1826 Patient Home Medication List Home Medication List Reviewed: Yes Review of Systems Review of Systems Constitutional: see HPI EENTM: see HPI Respiratory: no symptoms reported Cardiovascular: no symptoms reported Gastrointestinal: nausea Musculoskeletal: no symptoms reported Skin: no symptoms reported Psychiatric/Neurological: No Symptoms Reported Hematologic/Lymphatic: No Symptoms Reported Immunological/Allergic: no symptoms reported Past Tidxhbc-Gujlvl-Bkupyp Hx Patient Social History Recent Foreign Travel: No Contact w/Someone Who Travel: No Immunizations Up To Date PED Vaccines UTD: No Past Medical History Surgeries: Yes Eye Surgery Respiratory: No Cardiac: Yes 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, Palpitations Neurological: No Gastrointestinal: No Musculoskeletal: Yes Arthritis Endocrine: No Cancer: No Psychosocial: No Physical Exam Vital Signs Capillary Refill : Height, Weight, BMI Height: 5'6.00" Weight: 190lbs. 0.0oz. [id number]; 30.7 BMI Method:Stated General Appearance: No Apparent Distress, WD/WN, Other (alert and oriented. GCS 15. Denies any pain anywhere, only c/o nausea and "lethargy". BP 247/111) Eyes: Bilateral Eye Normal Inspection, Bilateral Eye PERRL Neck: Full Range of Motion, Normal Inspection Respiratory: Normal Breath Sounds, No Accessory Muscle Use, No Respiratory Distress Cardiovascular: Regular Rate, Rhythm, Normal Peripheral Pulses Gastrointestinal: Normal Bowel Sounds, Non Tender, Soft Extremity: Normal Capillary Refill, Normal Inspection Neurologic/Psychiatric: Alert, Oriented x3 Skin: Normal Color, Warm/Dry Progress/Results/Core Measures Suspected Sepsis SIRS Temperature: Pulse: Respiratory Rate: Laboratory Tests 06/17/20 12:35: White Blood Count 6.2 Blood Pressure / Mean: Laboratory Tests 06/17/20 12:35: Creatinine 0.88, INR Comment 0.9, Platelet Count 311, Total Bilirubin 0.4 Results/Orders Lab Results Laboratory Tests Test 06/17/20 12:35 06/17/20 13:43 Range/Units White Blood Count 6.2 4.3-11.0 10^3/uL Red Blood Count 4.41 3.80-5.11 10^6/uL Hemoglobin 14.0 11.5-16.0 g/dL Hematocrit 43 35-52 % Mean Corpuscular Volume 96 80-99 fL Mean Corpuscular Hemoglobin 32 25-34 pg Mean Corpuscular Hemoglobin Concent 33 32-36 g/dL Red Cell Distribution Width 14.2 10.0-14.5 % Platelet Count 311 130-400 10^3/uL Mean Platelet Volume 9.1 9.0-12.2 fL Immature Granulocyte % (Auto) 0 % Neutrophils (%) (Auto) 59 42-75 % Lymphocytes (%) (Auto) 30 12-44 % Monocytes (%) (Auto) 8 0-12 % Eosinophils (%) (Auto) 2 0-10 % Basophils (%) (Auto) 1 0-10 % Neutrophils # (Auto) 3.7 1.8-7.8 10^3/uL Lymphocytes # (Auto) 1.8 1.0-4.0 10^3/uL Monocytes # (Auto) 0.5 0.0-1.0 10^3/uL Eosinophils # (Auto) 0.1 0.0-0.3 10^3/uL Basophils # (Auto) 0.0 0.0-0.1 10^3/uL Immature Granulocyte # (Auto) 0.0 0.0-0.1 10^3/uL Prothrombin Time 12.6 12.2-14.7 SEC INR Comment 0.9 0.8-1.4 Sodium Level 138 135-145 MMOL/L Potassium Level 4.0 3.6-5.0 MMOL/L Chloride Level 103 98-107 MMOL/L Carbon Dioxide Level 22 21-32 MMOL/L Anion Gap 13 5-14 MMOL/L Blood Urea Nitrogen 16 7-18 MG/DL Creatinine 0.88 0.60-1.30 MG/DL Estimat Glomerular Filtration Rate > 60 BUN/Creatinine Ratio 18 Glucose Level 147 H 70-105 MG/DL Calcium Level 9.7 8.5-10.1 MG/DL Corrected Calcium 9.6 8.5-10.1 MG/DL Total Bilirubin 0.4 0.1-1.0 MG/DL Aspartate Amino Transf (AST/SGOT) 28 5-34 U/L Alanine Aminotransferase (ALT/SGPT) 26 0-55 U/L Alkaline Phosphatase 81 40-136 U/L Troponin I < 0.028 <0.028 NG/ML B-Type Natriuretic Peptide 146.2 H <100.0 PG/ML Total Protein 7.3 6.4-8.2 GM/DL Albumin 4.1 3.2-4.5 GM/DL Urine Color YELLOW Urine Clarity CLEAR Urine pH 7.0 5-9 Urine Specific Sentinel 1.020 1.016-1.022 Urine Protein 1+ H NEGATIVE Urine Glucose (UA) NEGATIVE NEGATIVE Urine Ketones TRACE H NEGATIVE Urine Nitrite NEGATIVE NEGATIVE Urine Bilirubin NEGATIVE NEGATIVE Urine Urobilinogen 0.2 < = 1.0 MG/DL Urine Leukocyte Esterase NEGATIVE NEGATIVE Urine RBC (Auto) NEGATIVE NEGATIVE Urine RBC NONE /HPF Urine WBC NONE /HPF Urine Squamous Epithelial Cells 2-5 /HPF Urine Crystals PRESENT H /LPF Urine Amorphous Sediment FEW MRAY PHOSPHATE H /LPF Urine Bacteria NEGATIVE /HPF Urine Casts NONE /LPF Urine Mucus NEGATIVE /LPF Urine Culture Indicated NO My Orders Orders - JUJU HOLT APRN Cbc With Automated Diff (06/17/20 12:30) Comprehensive Metabolic Panel (06/17/20 12:30) Troponin I (06/17/20 12:30) Ekg Tracing (06/17/20 12:30) Chest 1 View, Ap/Pa Only (06/17/20 12:30) BNP (06/17/20 12:30) Ed Iv/Invasive Line Start (06/17/20 12:30) Ondansetron Injection (Zofran Injectio (06/17/20 12:30) Hydralazine Injection (Apresoline Inject (06/17/20 12:45) Ua Culture If Indicated (06/17/20 12:35) Labetalol Injection (Normodyne Injection (06/17/20 13:00) Promethazine Injection (Phenergan Injec (06/17/20 13:30) Protime With Inr (06/17/20 13:16) Ct Angio Head/Neck (06/17/20 13:30) Iohexol Injection (Omnipaque 350 Mg/Ml 1 (06/17/20 13:45) Received Contrast (Hold Metformin- Contr (06/17/20 13:45) Ns (Ivpb) (Sodium Chloride 0.9% Ivpb Bag (06/17/20 13:45) Medications Given in ED Current Medications Medications Dose Ordered Sig/Eulogio Route Start Time Stop Time Status Last Admin Dose Admin Hydralazine HCl 10 mg ONCE ONCE IV 06/17/20 12:45 06/17/20 12:46 DC 06/17/20 12:47 10 MG Iohexol 75 ml ONCE ONCE IV 06/17/20 13:45 06/17/20 13:46 DC 06/17/20 13:54 75 ML Ondansetron HCl 8 mg ONCE ONCE IVP 06/17/20 12:30 06/17/20 12:33 DC 06/17/20 12:47 8 MG Promethazine HCl 12.5 mg ONCE ONCE IVP 06/17/20 13:30 06/17/20 13:31 DC 06/17/20 13:20 12.5 MG Sodium Chloride 100 ml ONCE ONCE IV 06/17/20 13:45 06/17/20 13:46 DC 06/17/20 13:54 80 ML Vital Signs/I&O Capillary Refill : Diagnostic Imaging Diagonstic Imaging: Xray, CT Comments NAME: JAMES BARRIENTOS [facility] REC#: [id number] PT STATUS: REG ER : 1935 PHYSICIAN: JUJU HOLT APRN ADMIT DATE: 06/17/20/ER Draft Date of Exam:06/17/20 CHEST 1 VIEW, AP/PA ONLY INDICATION: 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, cardiac disease. COMPARISON: 01/10/2019. FINDINGS: The heart size is within normal limits. The lungs are clear. No failure, effusion, or pneumothorax. The left subclavian line is at the lower SVC. IMPRESSION: No acute appearing abnormality. Dictated on workstation # [id number] Dict: 06/17/20 1248 Trans: 06/17/20 1252 [id number] Interpreted by: CARRIE GEE Electronically signed by: Departure Communication (Admissions) 1307-BP down to 197/85 HR 73 after 10mg hydralazine. BP on arrival 247/111. 1330-blood pressure is currently back up just a little bit 202/118. Heart rate 75. She had persistent nausea. 12.5 mg of phenergan given IV. Will give too much antihypertensives and drop her too fast so going to let her sit here at around 200 systolic for a while before further reduction in blood pressure. No focal neurologic deficit 1425-blood pressure is down to 160/69 heart rate of 74. Nausea is better. All she has been given his milligrams of Zofran, 12.5 mg of Phenergan, 10 mg of calcium given IV. Labetalol was not given. Impression Primary Impression: 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 Additional Impression: Nausea & vomiting Disposition: 09 ADMITTED INPATIENT Condition: Stable Admissions Decision to Admit Reason: Admit from ER (General) Decision to Admit/Date: Jun 17, 2020 Time/Decision to Admit Time: 14:25 Departure-Patient Inst. Referrals: TELMA VARGAS MD (PCP/Family) Primary Care Physician JUJU HOLT APRN Jun 17, 2020 12:36
[2020-06-17 12:42] LABS: BASOPHILS % (AUTO) 1 % (0-10); EOSINOPHILS # (AUTO) 0.1 10^3/uL (0.0-0.3); EOSINOPHILS % (AUTO) 2 % (0-10); HEMATOCRIT 43 % (35-52); LYMPHOCYTES # (AUTO) 1.8 10^3/uL (1.0-4.0); LYMPHOCYTES % (AUTO) 30 % (12-44); MEAN CORPUSCULAR HEMOGLOBIN 32 pg (25-34); MEAN CORPUSCULAR HGB CONC 33 g/dL (32-36); MEAN CORPUSCULAR VOLUME 96 fL (80-99); MEAN PLATELET VOLUME 9.1 fL (9.0-12.2); MONOCYTES # (AUTO) 0.5 10^3/uL (0.0-1.0); MONOCYTES % (AUTO) 8 % (0-12); NEUTROPHILS # (AUTO) 3.7 10^3/uL (1.8-7.8); NEUTROPHILS % (AUTO) 59 % (42-75); PLATELET COUNT 311 10^3/uL (130-400); WHITE BLOOD COUNT 6.2 10^3/uL (4.3-11.0)
[2020-06-17] MEDS ORDERED: hydrALAZINE (APESOLINE) 20 MG/ML VIAL IV ONE (12:45)
--- NOTE | 2020-06-17 12:53 | Diagnostic Imaging Report ---
INDICATION: 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, cardiac disease. COMPARISON: 01/10/2019. FINDINGS: The heart size is within normal limits. The lungs are clear. No failure, effusion, or pneumothorax. The left subclavian line is at the lower SVC. IMPRESSION: No acute appearing abnormality. Dictated by: Dictated on workstation # [id number]
[2020-06-17 12:54] LABS: ALBUMIN 4.1 GM/DL (3.2-4.5); CHLORIDE 103 MMOL/L (98-107); SODIUM 138 MMOL/L (135-145)
[2020-06-17 12:55] LABS: CALCIUM 9.7 MG/DL (8.5-10.1)
[2020-06-17 12:56] LABS: GLUCOSE 147 MG/DL (70-105)
[2020-06-17 12:57] LABS: TOTAL PROTEIN 7.3 GM/DL (6.4-8.2)
[2020-06-17 12:58] LABS: BILIRUBIN,TOTAL 0.4 MG/DL (0.1-1.0); CARBON DIOXIDE 22 MMOL/L (21-32)
[2020-06-17 13:00] LABS: ALKALINE PHOSPHATASE 81 U/L (40-136); CREATININE SERUM 0.88 MG/DL (0.60-1.30); GFR ESTIMATED > 60
[2020-06-17] MEDS ORDERED: LABETALOL HCL 20 MG/4 ML VIAL IV ONE (13:00)
[2020-06-17 13:01] LABS: BUN/CREATININE RATIO 18
[2020-06-17 13:03] LABS: ALANINE AMINOTRANSFERASE 26 U/L (0-55)
--- NOTE | 2020-06-17 13:14 | NUR ---
PT'S PULSE OX 88-90% ROOM AIR. DNIES SOA, COUGH, OR FEVER. JUJU NOTIFIED.
[2020-06-17 13:27] LABS: INR 0.9 (0.8-1.4); PROTHROMBIN TIME PATIENT 12.6 SEC (12.2-14.7)
[2020-06-17] MEDS ORDERED: PROMETHAZINE INJ 25 MG/ML (PHENERGAN) AMP IVP ONE (13:30)
--- NOTE | 2020-06-17 13:30 | NUR ---
PT STATES IF SHE MOVES SHE IS STILL SICK TO HER STOMACH. JUJU NOTIFIED.
[2020-06-17] MEDS ORDERED: NS 100 ML (IVPB) BAG IV ONE (13:45)
[2020-06-17] MEDS ORDERED: HOLD METFORMIN - RECEIVED CONTRAST 20 ML VIAL IV SCH (13:45)
[2020-06-17] MEDS ORDERED: IOHEXOL 350 MG/ML 100 ML (OMNIPAQUE 350) VIAL IV ONE (13:45)
[2020-06-17 13:52] LABS: BILIRUBIN,URINE NEGATIVE (NEGATIVE); CLARITY,URINE CLEAR; COLOR,URINE YELLOW; GLUCOSE, URINE (UA) NEGATIVE (NEGATIVE); KETONES,URINE TRACE (NEGATIVE); LEUKOCYTE ESTERASE ,URINE NEGATIVE (NEGATIVE); NITRITE,URINE NEGATIVE (NEGATIVE); PROTEIN,URINE 1+ (NEGATIVE)
[2020-06-17 14:04] LABS: AMORPHOUS SEDIMENT,UR FEW AMOR PHOSPHATE /LPF; BACTERIA,URINE NEGATIVE /HPF
--- NOTE | 2020-06-17 14:19 | Diagnostic Imaging Report ---
PROCEDURE: CT angiography of the head and CT angiography of the neck with and without contrast. TECHNIQUE: Contiguous noncontrast images were obtained from the skull base through the vertex. After intravenous contrast administration, helical CT angiography of the neck was performed. Source data was reformatted into 3D MIP projections. Delayed post contrast acquisition was also obtained. Auto Exposure Controls were utilized during the CT exam to meet ALARA standards for radiation dose reduction. INDICATION: Weakness, nausea, and vomiting. FINDINGS: The pre contrast portion of the study demonstrates the ventricles and sulci to be within normal limits. No sulcal effacement or midline shift is identified. No acute intra-axial or extra-axial hemorrhage is detected. Cisterns are patent. Visualized paranasal sinuses are clear. Delayed post contrast imaging through the brain is without abnormal enhancing lesion. There is a three-vessel branching pattern to the aortic arch. Both common carotid arteries are widely patent. There is moderate calcified plaque at the carotid bifurcations bilaterally. The right and left internal carotid arteries appear to be widely patent. There is some calcified plaque at the carotid siphons bilaterally but no stenosis is identified. The M1 and M2 segments of the middle cerebral arteries are widely patent. No filling defect is seen. No large branch occlusion is identified. Right and left anterior cerebral arteries are patent. Right and left posterior cerebral arteries are patent. The basilar artery is patent. Left vertebral artery is dominant. Both vertebral arteries appear to be widely patent. IMPRESSION: Essentially unremarkable CT angiogram of the head and neck. No intracranial stenosis or large branch occlusion is identified. There is some calcified plaque at the carotid bifurcations bilaterally but no high-grade stenosis is identified. Dictated by: Dictated on workstation # [id number]
--- NOTE | 2020-06-17 14:24 | NUR ---
PT'S DAUGHTER UPDATED BY PHONE.
--- NOTE | 2020-06-17 14:43 | NUR ---
ATTEMPT TO CALL REPORT ET NURSE SOHAMABE AT THIS TIME. PLAYGROUND OFFICIAL STATES SHE WILL GIVE THE MESSAGE TO CALL BACK.
[2020-06-17 15:22] VITALS: BP 163/74
[2020-06-17] MEDS ORDERED: PROMETHAZINE INJ 25 MG/ML (PHENERGAN) AMP IV PRN (15:45)
[2020-06-17] MEDS ORDERED: CATHETER FLUSH 10 ML SYR IV PRN (15:45)
[2020-06-17] MEDS ORDERED: LABETALOL HCL 20 MG/4 ML VIAL IV PRN (15:45)
[2020-06-17] MEDS ORDERED: ONDANSETRON 4 MG/2 ML (SDV) Z0FRAN IV PRN (15:45)
--- NOTE | 2020-06-17 19:37 | History & Physical ---
History of Present Illness History of Present Illness Reason for visit/HPI PT IS AN 84 Y/O FEMALE WHO IS WELL KNOWN TO ME FROM CLINIC. SHE PRESENTED TO THE HOSPITAL VIA AMBULANCE AFTER FEELING "FUNNY" AT HOME, CHECKING HER BLOOD PRESSURE AND FINDING IT IN THE 200'S AT HOME. UPON ARRIVAL TO THE ER - SHE HAD BLOOD PRESSURE IN THE 230/110'S. SHE WAS GIVEN IV MEDICATIONS TO GET HER BLOOD PRESSURE DOWN BELOW 200'S - SHE WAS ADMITTED TO THE HOSPITAL FOR OBSERVATION IN THE ICU FOR CLOSE CONTINUOUS BLOOD PRESSURE MONITORING. Date of Admission Jun 17, 2020 at 14:36 Date Seen by a Provider: Jun 17, 2020 Time Seen by a Provider: 19:05 Attending Physician Telma Abdalla MD Admitting Physician Telma Abdalla MD Consult Allergies and Home Medications Allergies Coded Allergies: sulfamethoxazole (Verified Allergy, Unknown, 01/11/19) trimethoprim (Verified Allergy, Unknown, 01/11/19) Uncoded Allergies: SULFA (Allergy, Mild, HIVES, 04/21/10) Home Medications Lisinopril 10 Mg Tablet, 10 MG PO DAILY, (Reported) Meloxicam 7.5 Mg Tablet, 7.5 MG PO DAILY Prescribed by: ASHLEY MANN on 08/20/17 1826 Patient Home Medication List Home Medication List Reviewed: Yes Past Xstnjbd-Qpgljt-Cvevrr Hx Past Med/Social Hx: Reviewed Nursing Past Med/Soc Hx, Reviewed and Corrections made Patient Social History Marrital Status: ( PASSED 01/24/2020) Living Status: LIVES IN HOME ALONE IN [place] WITH FREQUENT VISITS FROM HER DTRS Employed/Student: retired Alcohol Use: Denies Use Recreational Drug Use: No Smoking Status: Never a Smoker 2nd Hand Smoke Exposure: No Physical Abuse Screen: No Sexual Abuse: No Recent Foreign Travel: No Contact w/other who traveled: No Recent Hopitalizations: No Recent Infectious Disease Expo: No Immunizations Up To Date Pediatric: No Seasonal Allergies Seasonal Allergies: No Past Medical History Surgeries: Eye Surgery Currently Using CPAP: No Currently Using BIPAP: No Cardiac: 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, Palpitations : No 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: No Sexually Transmitted Disease: No HIV/AIDS: No Female 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 Disorders: Denies Menopausal Musculoskeletal: Arthritis Are Your Blood Sugars Over 250: No Loss of Vision: Denies Hearing Impairment: Denies History of Blood Disorders: No Adverse Reaction to Blood Prakash: No (PT REFUSES TO TAKE BLOOD PRODUCTS DUE TO CHRISTIANITY) Family History Reviewed and Corrections made 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 Review of Systems Constitutional: No chills, No fever, No malaise, No weakness EENTM: hearing loss; No hoarseness, No throat pain Respiratory: No cough, No dyspnea on exertion, No short of breath Cardiovascular: No chest pain, No palpitations Gastrointestinal: No abdominal pain, No constipation, No diarrhea, No loss of appetite, No nausea, No vomiting Genitourinary: no symptoms reported Musculoskeletal: No back pain, No muscle weakness Skin: no symptoms reported Psychiatric/Neurological: Denies Anxiety, Denies Depressed, Denies Numbness, Denies Paresthesia, Denies Weakness All Other Systems Reviewed Negative Unless Noted: Yes Physical Exam Vital Signs Vital Signs - First Documented 06/17/20 06/17/20 12:29 15:22 Temp 35.2 Pulse 80 Resp 16 B/P (MAP) 247/116 (159) Pulse Ox 90 O2 Delivery Room Air O2 Flow Rate 2.00 Capillary Refill : Less Than 3 Seconds Height, Weight, BMI Height: 5'6.00" Weight: 190lbs. 0.0oz. 86.692569jy; 30.83 BMI Method:Stated General Appearance: No Apparent Distress, WD/WN Eyes: Bilateral Eye Normal Inspection, Bilateral Eye PERRL, Bilateral Eye EOMI HEENT: PERRL/EOMI, Pharynx Normal Neck: Full Range of Motion, Normal Inspection, Non Tender, Supple Respiratory: Chest Non Tender, Lungs Clear, Normal Breath Sounds, No Accessory Muscle Use, No Respiratory Distress Cardiovascular: Regular Rate, Rhythm, Normal Peripheral Pulses Gastrointestinal: Normal Bowel Sounds, No Organomegaly, No Pulsatile Mass, Non Tender, Soft Rectal: Deferred Back: Normal Inspection Extremity: Normal Capillary Refill, Normal Inspection, Normal Range of Motion, Non Tender, No Calf Tenderness, No Pedal Edema Neurologic/Psychiatric: Alert, No Motor/Sensory Deficits, Normal Mood/Affect, knot borer II-XII Norm as Tested, Other (MILD CONFUSION ON AWAKENING, ORIENTED TO PERSON, PLACE, TIME) Skin: Normal Color, Warm/Dry Lymphatic: No Adenopathy Assessment/Plan Assessment and Plan HYPERTENSIVE EMERGENCY MILD CONFUSION HYPERTENSIVE EMERGENCY - PT WITH IMPROVED BLOOD PRESSURE ON MY CURRENT EVALUATION OF PATIENT. - PT GIVEN IV HYDRALAZINE AND LABETALOL IN THE ER WITH PRN LABETOLOL IN THE ICU. - CONSULT WAS PLACED TO CARDIOLOGY ON PATIENT'S ADMISSION TO THE HOSPITAL FROM THE ER. MILD CONFUSION - CT OF HEAD REPORT FOLLOWS: IMPRESSION: Essentially unremarkable CT angiogram of the head and neck. No intracranial stenosis or large branch occlusion is identified. There is some calcified plaque at the carotid bifurcations bilaterally but no high-grade stenosis is identified. DVT PROPHYLAXIS WITH LOVENOX GI PROPHYLAXIS WITH PEPCID Admission Diagnosis HYPERTENSIVE EMERGENCY MILD CONFUSION Admission Status: Observation Reason for Inpatient Admission: OBSERVATION FOR HYPERTENSIVE EMERGENCY Clinical Quality Measures DVT/VTE Risk/Contraindication: Risk Factor Score Per Nursin RFS Level Per Nursing on Admit: 2=Moderate TELMA ABDALLA MD Jun 17, 2020 19:37
[2020-06-17 19:44] LABS: BILIRUBIN,URINE NEGATIVE (NEGATIVE); CLARITY,URINE CLEAR; COLOR,URINE YELLOW; GLUCOSE, URINE (UA) NEGATIVE (NEGATIVE); KETONES,URINE NEGATIVE (NEGATIVE); LEUKOCYTE ESTERASE ,URINE TRACE (NEGATIVE); NITRITE,URINE NEGATIVE (NEGATIVE); PH,URINE 7.5 (5-9); PROTEIN,URINE NEGATIVE (NEGATIVE)
[2020-06-17] MEDS ORDERED: ENOXAPARIN 40 MG/0.4 ML (LOVENOX) SYR SC SCH (19:45)
[2020-06-17] MEDS ORDERED: FAMOTIDINE 20MG/2ML IV (PEPCID) IVP NR (19:45)
[2020-06-17 19:51] LABS: BACTERIA,URINE TRACE /HPF; RBC,URINE RARE /HPF; SQUAMOUS EPITHELIAL CELL,UR RARE /HPF
[2020-06-17] MEDS: CATHETER FLUSH 10 ML SYR IV SCH (20:09)
[2020-06-17] MEDS: ACETAMINOPHEN 500 MG TAB (TYLENOL) PO PRN (20:09)
[2020-06-18] MEDS: ACETAMINOPHEN 500 MG TAB (TYLENOL) PO PRN (02:27)
[2020-06-18 03:59] LABS: BASOPHILS % (AUTO) 1 % (0-10); EOSINOPHILS # (AUTO) 0.1 10^3/uL (0.0-0.3); EOSINOPHILS % (AUTO) 3 % (0-10); HEMATOCRIT 38 % (35-52); HEMOGLOBIN 12.5 g/dL (11.5-16.0); LYMPHOCYTES # (AUTO) 1.3 10^3/uL (1.0-4.0); LYMPHOCYTES % (AUTO) 28 % (12-44); MEAN CORPUSCULAR HEMOGLOBIN 32 pg (25-34); MEAN CORPUSCULAR HGB CONC 33 g/dL (32-36); MEAN CORPUSCULAR VOLUME 97 fL (80-99); MEAN PLATELET VOLUME 9.3 fL (9.0-12.2); MONOCYTES # (AUTO) 0.6 10^3/uL (0.0-1.0); MONOCYTES % (AUTO) 12 % (0-12); NEUTROPHILS # (AUTO) 2.6 10^3/uL (1.8-7.8); NEUTROPHILS % (AUTO) 56 % (42-75); PLATELET COUNT 306 10^3/uL (130-400); WHITE BLOOD COUNT 4.7 10^3/uL (4.3-11.0)
[2020-06-18 04:08] LABS: ALBUMIN 3.4 GM/DL (3.2-4.5)
[2020-06-18 04:09] LABS: POTASSIUM 4.2 MMOL/L (3.6-5.0)
[2020-06-18 04:10] LABS: CALCIUM 9.3 MG/DL (8.5-10.1)
[2020-06-18 04:13] LABS: BILIRUBIN,TOTAL 0.4 MG/DL (0.1-1.0)
[2020-06-18 04:15] LABS: CREATININE SERUM 0.99 MG/DL (0.60-1.30)
[2020-06-18] MEDS: CATHETER FLUSH 10 ML SYR IV SCH (06:50)
--- NOTE | 2020-06-18 08:51 | Discharge Summary ---
Diagnosis/Chief Complaint Date of Admission Jun 17, 2020 at 14:36 Date of Discharge Reason Hospital Visit PT IS AN 84 Y/O FEMALE WHO IS WELL KNOWN TO ME FROM CLINIC. SHE PRESENTED TO THE HOSPITAL VIA AMBULANCE AFTER FEELING "FUNNY" AT HOME, CHECKING HER BLOOD PRESSURE AND FINDING IT IN THE 200'S AT HOME. UPON ARRIVAL TO THE ER - SHE HAD BLOOD PRESSURE IN THE 230/110'S. SHE WAS GIVEN IV MEDICATIONS TO GET HER BLOOD PRESSURE DOWN BELOW 200'S - SHE WAS ADMITTED TO THE HOSPITAL FOR OBSERVATION IN THE ICU FOR CLOSE CONTINUOUS BLOOD PRESSURE MONITORING. Discharge Summary Discharge Physical Examination Allergies: Coded Allergies: sulfamethoxazole (Verified Allergy, Unknown, 01/11/19) trimethoprim (Verified Allergy, Unknown, 01/11/19) Uncoded Allergies: SULFA (Allergy, Mild, HIVES, 04/21/10) Vitals & I&Os Vital Signs Date Time Temp Pulse Resp B/P (MAP) Pulse Ox O2 Delivery O2 Flow Rate FiO2 06/18/20 08:32 37.2 06/18/20 06:00 65 17 146/57 95 Room Air 06/17/20 15:22 2.00 Hospital Course Pending Labs Laboratory Tests 06/18/20 03:21: White Blood Count 4.7, Red Blood Count 3.95, Hemoglobin 12.5, Hematocrit 38, Mean Corpuscular Volume 97, Mean Corpuscular Hemoglobin 32, Mean Corpuscular Hemoglobin Concent 33, Red Cell Distribution Width 14.6, Platelet Count 306, Me an Platelet Volume 9.3, Immature Granulocyte % (Auto) 0, Neutrophils (%) (Auto) 56, Lymphocytes (%) (Auto) 28, Monocytes (%) (Auto) 12, Eosinophils (%) (Auto) 3, Basophils (%) (Auto) 1, Neutrophils # (Auto) 2.6, Lymphocytes # (Auto) 1.3, Monocytes # (Auto) 0.6, Eosinophils # (Auto) 0.1, Basophils # (Auto) 0.0, Immature Granulocyte # (Auto) 0.0 06/18/20 03:31: Sodium Level 140, Potassium Level 4.2, Chloride Level 105, Carbon Dioxide Level 26, Anion Gap 9, Blood Urea Nitrogen 13, Creatinine 0.99, Estimat Glomerular Filtration Rate 53, BUN/Creatinine Ratio 13, Glucose Level 107, Calcium Level 9.3, Corrected Calcium 9.8, Total Bilirubin 0.4, Aspartate Amino Transf (AST/SGOT) 26, Alanine Aminotransferase (ALT/SGPT) 21, Alkaline Phosphatase 66, Total Protein 6.0, Albumin 3.4 Discharge Instructions to patient/family Please see electronic discharge instructions given to patient. Discharge Medications Reviewed and agree with Discharge Medication list on patient's Discharge Instruction sheet Clinical Quality Measures DVT/VTE Risk/Contraindication: Risk Factor Score Per Nursin RFS Level Per Nursing on Admit: 2=Moderate TELMA VARGAS MD Jun 18, 2020 08:51
[2020-06-18] MEDS ORDERED: ASPI-1238 PO (08:53)
--- NOTE | 2020-06-18 08:54 | Discharge Inst-Simple/Standard ---
Discharge Inst-Standard Reconcile Patient Problems Problems Reviewed?: Yes Patient Instructions/Follow Up Plan of Care/Instructions/FU: 1 wk follow up with javier ruby (inperson visit - NOT telemed visit) 2 wk follow up with cardiology Activity as Tolerated: Yes Discharge Diet: Low Sodium Diet Return to The Hospital For: any concern for lifethreatening illness, injury, recurrent chest pain, shortness of breath or uncontrolled blood pressure TELMA VARGAS MD Jun 18, 2020 08:54
[2020-06-18] MEDS ORDERED: FAMOTIDINE 20 MG (PEPCID) TABLET PO SCH ×2 (09:00→20:00)
[2020-06-18] MEDS ORDERED: lisINopril 20 MG (PRINIVIL) TABLET PO SCH (09:00)
--- NOTE | 2020-06-18 09:54 | Speech Therapy Progress Note ---
Therapy Progress Note ST to discharge evaluation order due to screening completed. Patient is able to answer questions without confusion noted. Memory is WFL. SCARLETT STAPLES Jun 18, 2020 09:54
[2020-06-18] MEDS ORDERED: LISI-552 PO (10:17)
--- NOTE | 2020-06-18 18:36 | Consultation-Cardiology ---
HPI-Cardiology Cardiology Consultation: Date of Consultation 06/18/20 Date of Admission Attending Physician Marcela Abdalla MD Admitting Physician Marcela Abdalla MD Consulting Physician Isabela BURDEN MD HPI: Time Seen by a Provider: 10:30 This is a 84-year-old lady who was brought to the ER with significantly elevated blood pressure and associated lethargy, nausea, vomiting. She has history of hypertension. She denies any other complaints including denying chest pain, lary rtness of breath or headache. She denies active smoking. Pertinent family history is negative. Review of Systems-Cardiology Review of Systems Constitutional: As described under HPI; No As described under HPI, No no symptoms reported, No chills, No fever, No lightheadedness Eyes: No As described under HPI, No no symptoms reported, No blindness, No blurred vision, No contact lenses, No drainage, No decreased acuity, No foreign body sensation, No pain, No vision change Ears/Nose/Throat: No As described under HPI, No no symptoms reported, No rack puncher dyana hearing loss, No ear discharge, No ear pain, No nasal drainage, No ulcerations Respiratory: No no symptoms reported; As described under HPI; No As described under HPI, No cough, No orthopnea, No shortness of breath, No SOB with excertion Cardiovascular: No no symptoms reported; As described under HPI; No As described under HPI, No chest pain, No edema, No irregular heart rate, No lightheadedness, No palpitations Gastrointestinal: No no symptoms reported, No As described under HPI, No abdomen distended, No abdominal pain, No blood streaked bowels, No constipation, No diarrhea, No nausea, No vomiting, No stool coloration changes Genitourinary: No As described under HPI, No burning, No dysuria, No discharge, No frequency, No flank pain, No hematuria, No urgency : Yes : No Skin: No rash, No skin related problems, No ulcerations Psychiatric/Neurological: No anxiety, No depression, No seizure, No focal weakness, No syncope Hematologic: No bleeding abnormalities All Other Systems Reviewed Negative Unless Noted: Yes HRZ-Ixbnhp-Oepbuq Hx Patient Social History Marrital Status: ( PASSED 01/24/2020) Living Status: LIVES IN HOME ALONE IN [place] WITH FREQUENT VISITS FROM HER DTRS Employed/Student: retired Alcohol Use: Denies Use Recreational Drug Use: No Smoking Status: Never a Smoker 2nd Hand Smoke Exposure: No Recent Foreign Travel: No Recent Infectious Disease Expo: No Physical Abuse Screen: No Sexual Abuse: No Past Medical History PMH As described under Assessment. Allergies and Home Medications Allergies Coded Allergies: sulfamethoxazole (Verified Allergy, Unknown, 01/11/19) trimethoprim (Verified Allergy, Unknown, 01/11/19) Uncoded Allergies: SULFA (Allergy, Mild, HIVES, 04/21/10) Home Medications Aspirin 81 Mg Tablet.dr, 81 MG PO DAILY Prescribed by: KAYCEE DIAZ on 06/18/20 1309 Lisinopril 20 Mg Tablet, 20 MG PO DAILY Prescribed by: KAYCEE DIAZ on 06/18/20 1017 Patient Home Medication List Home Medication List Reviewed: Yes Physical Exam-Cardiology Physical Exam Vital Signs/I&O Capillary Refill : Less Than 3 Seconds Constitutional: appears stated age; No apparent distress; well-developed, well- nourished HEENT: PERRL; No discharge; hearing is well preserved, oral hygience is good; No ulceration, No xanthelasmas are seen Neck: No carotid bruit; carotid pulses are 2 + bilaterally Respiratory: chest is bilaterally symmetric, lungs clear to auscultation Cardiovascular: regular rate-rhythm, S1 and S2 Gastrointestinal: soft, audible bowel sounds; No spleenomegaly Rectal: deferred Extremities: normal range of motion, non-tender, normal inspection; No clubbing, No cyanosis; no lower extremity edema bilateral; No significant edema Neurologic/Psychiatric: no motor/sensory deficits, alert, normal mood/affect, oriented x 3, power is 5/5 both on sides Skin: normal color; No rash, No ulcerations Data Review Labs ECG Impression ECG Initial ECG Rhythm: Normal Sinus Comment LVH A/P-Cardiology Assessment/Admission Diagnosis Severe hypertension, Mild aortic stenosis, Mild pulmonary hypertension, Mild diastolic dysfunction. Plan Aggressive blood pressure management - significantly improved when I saw the patient. Gradually restart home medication. Echocardiogram. Echocardiogram showed LVH with mild diastolic dysfunction. Mild aortic stenosis and mild pulm onary hypertension. Patient will need to follow with cardiology as an outpatient. Defer to the primary team. Thank you for your consultation. Please call me if you have any questions. Kyler uBrden MD, FACP, FACC, FSCAI, FHRS, CCDS Interventional Cardiology Cardiac Electrophysiology Vascular Medicine and Endovascular Interventions Clinical Quality Measures DVT/VTE Risk/Contraindication: Risk Factor Score Per Nursin RFS Level Per Nursing on Admit: 2=Moderate Isabela BURDEN MD Jun 18, 2020 18:36
== END 2020-06-18 14:14 | disposition home or self-care (01) ==
LOC: EDUNIT# 12:29 → ER 12:30 → ICU 14:36
PROVIDERS: ADMIT Family Medicine; ATTEND Family Medicine
DX: I10 Essential (primary) hypertension (principal); M19.90 Unspecified osteoarthritis, unspecified site; R11.2 Nausea with vomiting, unspecified; Z88.2 Allergy status to sulfonamides; Z88.1 Allergy status to other antibiotic agents
CPT/HCPCS: 70496; 70498; 71045; 80053 ×2; 81000; 83880; 84484; 85025 ×2; 85610; 93005; 93306; 99283; G0378; 36415; 96374; 96375

== ENCOUNTER 2020-07-30 16:29 | Outpatient (RCR) | payer MEDICARE, OTHER ==
[2020-05-12 11:28] LABS: BASOPHILS # (AUTO) 0.1 10^3/uL (0.0-0.1); BASOPHILS % (AUTO) 1 % (0-10); EOSINOPHILS # (AUTO) 0.2 10^3/uL (0.0-0.3); EOSINOPHILS % (AUTO) 5 % (0-10); HEMATOCRIT 40 % (35-52); HEMOGLOBIN 13.1 g/dL (11.5-16.0); LYMPHOCYTES # (AUTO) 1.8 10^3/uL (1.0-4.0); LYMPHOCYTES % (AUTO) 35 % (12-44); MEAN CORPUSCULAR HEMOGLOBIN 32 pg (25-34); MEAN CORPUSCULAR HGB CONC 33 g/dL (32-36); MEAN CORPUSCULAR VOLUME 96 fL (80-99); MONOCYTES # (AUTO) 0.5 10^3/uL (0.0-1.0); MONOCYTES % (AUTO) 11 % (0-12); NEUTROPHILS # (AUTO) 2.5 10^3/uL (1.8-7.8); NEUTROPHILS % (AUTO) 49 % (42-75); PLATELET COUNT 295 10^3/uL (130-400); WHITE BLOOD COUNT 5.1 10^3/uL (4.3-11.0)
[2020-05-12 11:49] LABS: ALBUMIN 3.8 GM/DL (3.2-4.5); BILIRUBIN,TOTAL 0.3 MG/DL (0.1-1.0); CALCIUM 9.3 MG/DL (8.5-10.1); CREATININE SERUM 0.94 MG/DL (0.60-1.30); POTASSIUM 4.5 MMOL/L (3.6-5.0); TOTAL PROTEIN 6.9 GM/DL (6.4-8.2)
[~2020-07-30 16:29] MED LIST changes: +ASPI-1238 PO; +LISI-552 PO
== END 2020-08-10 | disposition home or self-care (01) ==
LOC: ONC 16:29
PROVIDERS: ATTEND Internal Medicine Hematology & Oncology
DX: Z45.2 Encounter for adjustment and management of vascular access device (principal); C83.31 Diffuse large B-cell lymphoma, lymph nodes of head, face, and neck; I10 Essential (primary) hypertension; E78.5 Hyperlipidemia, unspecified; M47.896 Other spondylosis, lumbar region; R91.1 Solitary pulmonary nodule; Z79.899 Other long term (current) drug therapy; Z92.21 Personal history of antineoplastic chemotherapy; Z92.3 Personal history of irradiation
CPT/HCPCS: 80053; 83615; 85025; G0463; 36591; 96523

== ENCOUNTER 2020-08-05 14:15 | Outpatient (CLI) | payer MEDICARE, OTHER ==
[~2020-08-05 14:15] MED LIST changes: -LISI-552 PO; -LISI10TA2 PO; +LISI10TA25 PO; +LISI20TA26 PO
== END 2020-08-05 15:04 | disposition home or self-care (01) ==
LOC: SLEEP 14:15
PROVIDERS: ATTEND Nurse Practitioner Family
DX: G47.10 Hypersomnia, unspecified (principal); I10 Essential (primary) hypertension
CPT/HCPCS: 70496; 70498; 71045; 80053 ×2; 81000; 83880; 84484; 85025 ×2; 85610; 93005; 93306; 96374; 96375; 96523; 99283; G0378; G0399; 36415

== ENCOUNTER 2020-10-21 12:53 | Outpatient (RCR) | payer MEDICARE, OTHER ==
[2020-10-21 13:19] LABS: BASOPHILS # (AUTO) 0.1 10^3/uL (0.0-0.1); BASOPHILS % (AUTO) 1 % (0-10); EOSINOPHILS # (AUTO) 0.1 10^3/uL (0.0-0.3); EOSINOPHILS % (AUTO) 3 % (0-10); HEMATOCRIT 40 % (35-52); HEMOGLOBIN 13.1 g/dL (11.5-16.0); LYMPHOCYTES # (AUTO) 1.7 10^3/uL (1.0-4.0); LYMPHOCYTES % (AUTO) 35 % (12-44); MEAN CORPUSCULAR HEMOGLOBIN 31 pg (25-34); MEAN CORPUSCULAR HGB CONC 33 g/dL (32-36); MEAN CORPUSCULAR VOLUME 96 fL (80-99); MONOCYTES # (AUTO) 0.6 10^3/uL (0.0-1.0); MONOCYTES % (AUTO) 12 % (0-12); NEUTROPHILS # (AUTO) 2.3 10^3/uL (1.8-7.8); NEUTROPHILS % (AUTO) 48 % (42-75); PLATELET COUNT 288 10^3/uL (130-400); WHITE BLOOD COUNT 4.7 10^3/uL (4.3-11.0)
[2020-10-21 13:40] LABS: ALBUMIN 3.9 GM/DL (3.2-4.5); BILIRUBIN,TOTAL 0.4 MG/DL (0.1-1.0); CALCIUM 9.2 MG/DL (8.5-10.1); CREATININE SERUM 0.9 MG/DL (0.60-1.30); POTASSIUM 4.1 MMOL/L (3.6-5.0); TOTAL PROTEIN 6.9 GM/DL (6.4-8.2)
== END 2021-01-19 | disposition home or self-care (01) ==
LOC: ONC 12:53
PROVIDERS: ATTEND Internal Medicine Hematology & Oncology
DX: Z45.2 Encounter for adjustment and management of vascular access device (principal); C83.38 Diffuse large B-cell lymphoma, lymph nodes of multiple sites; E78.2 Mixed hyperlipidemia; I10 Essential (primary) hypertension; Z92.21 Personal history of antineoplastic chemotherapy; Z92.3 Personal history of irradiation
CPT/HCPCS: 80053; 83615; 85025; G0463; 36591

== ENCOUNTER → 2021-04-29 | Outpatient (RCR) | payer MEDICARE, OTHER ==
[2021-01-29 13:47] LABS: BASOPHILS % (AUTO) 1 % (0-10); EOSINOPHILS # (AUTO) 0.2 10^3/uL (0.0-0.3); EOSINOPHILS % (AUTO) 3 % (0-10); HEMATOCRIT 40 % (35-52); HEMOGLOBIN 13.1 g/dL (11.5-16.0); LYMPHOCYTES # (AUTO) 1.8 X 10^3 (1.0-4.0); LYMPHOCYTES % (AUTO) 37 % (12-44); MEAN CORPUSCULAR HEMOGLOBIN 31 pg (25-34); MEAN CORPUSCULAR HGB CONC 33 g/dL (32-36); MEAN CORPUSCULAR VOLUME 95 fL (80-99); MEAN PLATELET VOLUME 8.7 fL (9.0-12.2); MONOCYTES # (AUTO) 0.6 X 10^3 (0.0-1.0); MONOCYTES % (AUTO) 13 % (0-12); NEUTROPHILS # (AUTO) 2.2 X 10^3 (1.8-7.8); NEUTROPHILS % (AUTO) 46 % (42-75); PLATELET COUNT 316 10^3/uL (130-400); WHITE BLOOD COUNT 4.8 10^3/uL (4.3-11.0)
[2021-01-29 14:05] LABS: ALBUMIN 3.9 GM/DL (3.2-4.5); BILIRUBIN,TOTAL 0.3 MG/DL (0.1-1.0); CALCIUM 10.1 MG/DL (8.5-10.1); CREATININE SERUM 0.94 MG/DL (0.60-1.30); POTASSIUM 4.4 MMOL/L (3.6-5.0); TOTAL PROTEIN 7.1 GM/DL (6.4-8.2)
[2021-04-29 13:25] LABS: BASOPHILS # (AUTO) 0.1 10^3/uL (0.0-0.1); BASOPHILS % (AUTO) 1 % (0-10); EOSINOPHILS # (AUTO) 0.1 10^3/uL (0.0-0.3); EOSINOPHILS % (AUTO) 2 % (0-10); HEMATOCRIT 42 % (35-52); HEMOGLOBIN 13.9 g/dL (11.5-16.0); LYMPHOCYTES # (AUTO) 2.2 10^3/uL (1.0-4.0); LYMPHOCYTES % (AUTO) 34 % (12-44); MEAN CORPUSCULAR HEMOGLOBIN 32 pg (25-34); MEAN CORPUSCULAR HGB CONC 33 g/dL (32-36); MEAN CORPUSCULAR VOLUME 97 fL (80-99); MEAN PLATELET VOLUME 8.9 fL (9.0-12.2); MONOCYTES # (AUTO) 0.7 10^3/uL (0.0-1.0); MONOCYTES % (AUTO) 11 % (0-12); NEUTROPHILS # (AUTO) 3.5 10^3/uL (1.8-7.8); NEUTROPHILS % (AUTO) 53 % (42-75); PLATELET COUNT 270 10^3/uL (130-400); WHITE BLOOD COUNT 6.7 10^3/uL (4.3-11.0)
[2021-04-29 13:43] LABS: ALBUMIN 3.9 GM/DL (3.2-4.5); BILIRUBIN,TOTAL 0.4 MG/DL (0.1-1.0); CALCIUM 10.4 MG/DL (8.5-10.1); CREATININE SERUM 0.98 MG/DL (0.60-1.30); POTASSIUM 4.5 MMOL/L (3.6-5.0); TOTAL PROTEIN 6.8 GM/DL (6.4-8.2)
== END | disposition home or self-care (01) ==
LOC: ONC 01-29 13:11
PROVIDERS: ATTEND Internal Medicine Hematology & Oncology
DX: Z45.2 Encounter for adjustment and management of vascular access device (principal); C83.38 Diffuse large B-cell lymphoma, lymph nodes of multiple sites; E78.2 Mixed hyperlipidemia; I10 Essential (primary) hypertension; E04.1 Nontoxic single thyroid nodule; Z92.21 Personal history of antineoplastic chemotherapy; Z92.3 Personal history of irradiation
CPT/HCPCS: 80053; 83615; 85025; G0463; 36591; 96523

== ENCOUNTER 2021-07-30 12:55 | Outpatient (RCR) | payer MEDICARE, OTHER | END 2021-08-13 | disposition home or self-care (01) | LOC: ONC 12:55 | PROVIDERS: ATTEND Internal Medicine Hematology & Oncology | DX: Z45.2 Encounter for adjustment and management of vascular access device (principal); C83.38 Diffuse large B-cell lymphoma, lymph nodes of multiple sites; E78.2 Mixed hyperlipidemia; I10 Essential (primary) hypertension; E04.1 Nontoxic single thyroid nodule; Z92.21 Personal history of antineoplastic chemotherapy; Z92.3 Personal history of irradiation | CPT/HCPCS: 96523 ==

== ENCOUNTER 2021-11-13 21:11 | Emergency (ER) | payer MEDICARE, OTHER ==
[~2021-11-13] VITALS: Ht 167.7 cm; Wt 90.7 kg
[2021-11-13 21:47] LABS: BASOPHILS # (AUTO) 0.1 10^3/uL (0.0-0.1); BASOPHILS % (AUTO) 1 % (0-10); EOSINOPHILS # (AUTO) 0.2 10^3/uL (0.0-0.3); EOSINOPHILS % (AUTO) 3 % (0-10); HEMATOCRIT 42 % (35-52); HEMOGLOBIN 13.5 g/dL (11.5-16.0); LYMPHOCYTES # (AUTO) 2.2 10^3/uL (1.0-4.0); LYMPHOCYTES % (AUTO) 35 % (12-44); MEAN CORPUSCULAR HEMOGLOBIN 31 pg (25-34); MEAN CORPUSCULAR HGB CONC 32 g/dL (32-36); MEAN CORPUSCULAR VOLUME 97 fL (80-99); MEAN PLATELET VOLUME 9.5 fL (9.0-12.2); MONOCYTES # (AUTO) 0.7 10^3/uL (0.0-1.0); MONOCYTES % (AUTO) 12 % (0-12); NEUTROPHILS % (AUTO) 48 % (42-75); PLATELET COUNT 314 10^3/uL (130-400); WHITE BLOOD COUNT 6.1 10^3/uL (4.3-11.0)
[2021-11-13 21:58] LABS: ALANINE AMINOTRANSFERASE 27 U/L (0-55); ALKALINE PHOSPHATASE 92 U/L (40-136); BILIRUBIN,TOTAL 0.3 MG/DL (0.1-1.0); BUN/CREATININE RATIO 23; CALCIUM 9.9 MG/DL (8.5-10.1); CARBON DIOXIDE 19 MMOL/L (21-32); CHLORIDE 107 MMOL/L (98-107); CREATININE SERUM 0.95 MG/DL (0.60-1.30); GFR ESTIMATED 58; GLUCOSE 96 MG/DL (70-105); POTASSIUM 4.5 MMOL/L (3.6-5.0); SODIUM 142 MMOL/L (135-145); TOTAL PROTEIN 7.4 GM/DL (6.4-8.2)
[2021-11-13 22:22] LABS: BILIRUBIN,URINE NEGATIVE (NEGATIVE); CLARITY,URINE CLEAR; COLOR,URINE YELLOW; GLUCOSE, URINE (UA) NEGATIVE (NEGATIVE); KETONES,URINE NEGATIVE (NEGATIVE); LEUKOCYTE ESTERASE ,URINE 2+ (NEGATIVE); NITRITE,URINE NEGATIVE (NEGATIVE); PROTEIN,URINE NEGATIVE (NEGATIVE)
[2021-11-13 22:28] LABS: BACTERIA,URINE NEGATIVE /HPF
[2021-11-13] MEDS ORDERED: hydrALAZINE (APESOLINE) 20 MG/ML VIAL IV ONE (22:45)
--- NOTE | 2021-11-13 22:47 | ED Cardiac General ---
History of Present Illness General Chief Complaint: Cardiac/General Problems Stated Complaint: ELEV BP Nursing Triage Note: Pt arrives via EMS from home for c/o high blood pressure; onset 183 tonight. Pt reports blood pressure over 200 systolic at home, with a throbbing headache. Pt then took total of Lisinopril 40mg which brought her blood pressure to 180 systolic per EMS. On arrival to ED pt reports headache resolved. Pt reports this has happened in the past et had to be admitted to ICU in 2019 for similar c/o. Source: patient Exam Limitations: no limitations History of Present Illness Date Seen by Provider: Nov 13, 2021 Time Seen by Provider: 22:12 Initial Comments Patient to the ER by private conveyance with chief complaint that about 6:00 this evening, 4 hours prior to arrival she started having some throbbing pulselike sensation in her head not on one side or the other as well as feeling flushed in her face. She just concluded a several day visit with her daughters and from [place] and says she been drinking more coffee than usual staying up late and having a lot of excitement. She is not having any chest pain numbness or history of coronary disease. No weakness fevers chills nausea vomiting diarrhea cough fevers. 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 Leos. Dr. Abdalla is her primary care doctor. She is known to Dr. Dick but since she has no coronary history she did not feel she needed to continue seeing him and just follows with her primary care provider now. She says this happened once before about 2 years ago and she had to stay in the hospital for it. She is not on an antiplatelet. ASA po STRATEGY DIRECTOR: No Allergies and Home Medications Allergies Coded Allergies: sulfamethoxazole (Verified Allergy, Unknown, 01/11/19) trimethoprim (Verified Allergy, Unknown, 01/11/19) Uncoded Allergies: SULFA (Allergy, Mild, HIVES, 04/21/10) Patient Home Medication List Home Medication List Reviewed: Yes Aspirin (Aspirin EC) 81 Mg Tablet., 81 MG PO DAILY Prescribed by: KAYCEE DIAZ on 06/18/20 1309 Clonidine HCl (Clonidine HCl) 0.1 Mg Tablet, 0.1 MG PO BID PRN for htn 200/110 Prescribed by: SCARLETT MURRY on 11/14/21 0017 Lisinopril (Lisinopril) 20 Mg Tablet, 20 MG PO DAILY Prescribed by: KAYCEE DIAZ on 06/18/20 1017 Review of Systems Review of Systems Constitutional: No chills, No diaphoresis EENTM: No Blurred Vision, No Double Vision Respiratory: Denies Cough, Denies Orthopnea Cardiovascular: Denies Chest Pain, Denies Lightheadedness Gastrointestinal: Denies Constipated, Denies Diarrhea Genitourinary: Denies Burning, Denies Discharge, Denies Drainage Musculoskeletal: No back pain, No joint pain All Other Systems Reviewed Negative Unless Noted: Yes Past Unuyfta-Yzfraf-Flzskq Hx Patient Social History Tobacco Use?: No Use of E-Cig and/or Vaping dev: No Substance use?: No Alcohol Use?: No Pt feels they are or have been: No Immunizations Up To Date PED Vaccines UTD: No Influenza Vaccine Up-to-Date: No; Not Current 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 Seasonal Allergies Seasonal Allergies: No Past Medical History Surgeries: Yes Eye Surgery Respiratory: No Currently Using CPAP: No Currently Using BIPAP: No Cardiac: Yes 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, Palpitations Neurological: No 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 Disorders: No Female 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 Disorders: Denies YARN HAULER History: Menopausal Sexually Transmitted Disease: No HIV/AIDS: No Gastrointestinal: No Musculoskeletal: Yes Arthritis Endocrine: No Loss of Vision: Denies Hearing Impairment: Denies Cancer: No Psychosocial: No Blood Disorders: No Adverse Reaction/Blood Tranf: No (PT REFUSES TO TAKE BLOOD PRODUCTS DUE TO YAZIDISM) Family Medical History 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 Physical Exam Vital Signs Vital Signs - First Documented 11/13/21 21:11 Temp 36.4 Pulse 70 Resp 18 B/P (MAP) 215/108 (143) Pulse Ox 96 O2 Delivery Room Air Capillary Refill : Less Than 3 Seconds Height, Weight, BMI Height: 5'6.00" Weight: 190lbs. 0.0oz. 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 Norm as Tested Skin: Normal Color, Warm/Dry Progress/Results/Core Measures Results/Orders Lab Results Laboratory Tests Test 11/13/21 21:15 11/13/21 22:17 11/13/21 23:20 Range/Units White Blood Count 6.1 4.3-11.0 10^3/uL Red Blood Count 4.36 3.80-5.11 10^6/uL Hemoglobin 13.5 11.5-16.0 g/dL Hematocrit 42 35-52 % Mean Corpuscular Volume 97 80-99 fL Mean Corpuscular Hemoglobin 31 25-34 pg Mean Corpuscular Hemoglobin Concent 32 32-36 g/dL Red Cell Distribution Width 15.2 H 10.0-14.5 % Platelet Count 314 130-400 10^3/uL Mean Platelet Volume 9.5 9.0-12.2 fL Immature Granulocyte % (Auto) 0 % Neutrophils (%) (Auto) 48 42-75 % Lymphocytes (%) (Auto) 35 12-44 % Monocytes (%) (Auto) 12 0-12 % Eosinophils (%) (Auto) 3 0-10 % Basophils (%) (Auto) 1 0-10 % Neutrophils # (Auto) 3.0 1.8-7.8 10^3/uL Lymphocytes # (Auto) 2.2 1.0-4.0 10^3/uL Monocytes # (Auto) 0.7 0.0-1.0 10^3/uL Eosinophils # (Auto) 0.2 0.0-0.3 10^3/uL Basophils # (Auto) 0.1 0.0-0.1 10^3/uL Immature Granulocyte # (Auto) 0.0 0.0-0.1 10^3/uL Sodium Level 142 135-145 MMOL/L Potassium Level 4.5 3.6-5.0 MMOL/L Chloride Level 107 98-107 MMOL/L Carbon Dioxide Level 19 L 21-32 MMOL/L Anion Gap 16 H 5-14 MMOL/L Blood Urea Nitrogen 22 H 7-18 MG/DL Creatinine 0.95 0.60-1.30 MG/DL Estimat Glomerular Filtration Rate 58 BUN/Creatinine Ratio 23 Glucose Level 96 70-105 MG/DL Calcium Level 9.9 8.5-10.1 MG/DL Corrected Calcium 9.9 8.5-10.1 MG/DL Total Bilirubin 0.3 0.1-1.0 MG/DL Aspartate Amino Transf (AST/SGOT) 31 5-34 U/L Alanine Aminotransferase (ALT/SGPT) 27 0-55 U/L Alkaline Phosphatase 92 40-136 U/L Troponin I < 0.028 < 0.028 <0.028 NG/ML C-Reactive Protein High Sensitivity 0.17 0.00-0.50 MG/DL Total Protein 7.4 6.4-8.2 GM/DL Albumin 4.0 3.2-4.5 GM/DL Urine Color YELLOW Urine Clarity CLEAR Urine pH 6.0 5-9 Urine Specific [place] 1.010 L 1.016-1.022 Urine Protein NEGATIVE NEGATIVE Urine Glucose (UA) NEGATIVE NEGATIVE Urine Ketones NEGATIVE NEGATIVE Urine Nitrite NEGATIVE NEGATIVE Urine Bilirubin NEGATIVE NEGATIVE Urine Urobilinogen 0.2 < = 1.0 MG/DL Urine Leukocyte Esterase 2+ H NEGATIVE Urine RBC (Auto) TRACE-I H NEGATIVE Urine RBC NONE /HPF Urine WBC 2-5 /HPF Urine Squamous Epithelial Cells NONE /HPF Urine Renal Epithelial Cells NONE /HPF Urine Crystals NONE /LPF Urine Bacteria NEGATIVE /HPF Urine Casts NONE /LPF Urine Mucus NEGATIVE /LPF Urine Culture Indicated NO My Orders Orders - SCARLETT MURRY Cbc With Automated Diff (11/13/21 21:42) Comprehensive Metabolic Panel (11/13/21 21:42) Troponin I Andrey (11/13/21 21:42) Ekg Tracing (11/13/21 21:44) Hs C Reactive Protein (11/13/21 21:57) Ua Culture If Indicated (11/13/21 21:58) Troponin I Adams (11/13/21 23:15) Hydralazine Injection (Apresoline Inject (11/13/21 22:45) Chest 1 View, Ap/Pa Only (11/13/21 22:47) Clonidine Tablet (Catapres Tablet) (11/13/21 23:30) Medications Given in ED Current Medications Medications Dose Ordered Sig/Eulogio Route Start Time Stop Time Status Last Admin Dose Admin Clonidine HCl 0.1 mg ONCE ONCE PO 11/13/21 23:30 11/13/21 23:31 DC 11/13/21 23:34 0.1 MG Hydralazine HCl 10 mg ONCE ONCE IV 11/13/21 22:45 11/13/21 22:46 DC 11/13/21 22:48 10 MG Vital Signs/I&O 11/13/21 11/14/21 21:11 00:45 Temp 36.4 Pulse 70 76 Resp 18 18 B/P (MAP) 215/108 (143) 183/88 Pulse Ox 96 97 O2 Delivery Room Air Room Air Blood Pressure Mean: 143 Progress Progress Note #1: Time: 22:45 Progress Note Well-appearing patient who initially had some tenderness and flushing in her face which is no longer symptomatic by the time she arrived to the ER. We did some labs including troponin and an EKG which were unremarkable. We will give her hydralazine 10 mg and see how she responds. Initially her blood pressure was dropping back down to 170s from her systolic max of 225. It is back up to 2 20 systolic so we will trial blood pressure medicine and look for about a 20% drop in her overall systolic pressure. If we cannot achieve this then we will discuss an overnight stay on observation. Patient is okay with this plan. Neurologically intact. Delta troponin at 2315. Progress Note #2: Time: 00:13 Progress Note Last couple blood pressures been in the 180s over 90s. This is an acceptable 20% drop. She seems to be more comfortable. We have suggested that perhaps the recent lifestyle change having family in from [place] and what she has been eating and drinking and staying up and having more caffeine intake may have affected her blood pressure. We encourage her to increase her lisinopril to 40 mg and till she follows up with her primary care doctor. We have given her some return precautions as well as titration criteria. Patient is okay with this plan. Initial ECG Impression Date: Nov 13, 2021 Initial ECG Impression Time: 21:21 Initial ECG Rate: 72 Initial ECG Rhythm: Normal Sinus Initial ECG Intervals: Normal Initial ECG Impression: Normal Initial ECG Comparisson: No Previous ECG Available Comment Normal sinus rhythm without clinically relevant ST elevation or depression. Diagnostic Imaging Diagonstic Imaging: Xray Plain Films/CT/US/NM/MRI: chest Reviewed: Reviewed by Me Departure Impression Primary Impression: Accelerated hypertension Disposition: 01 HOME, SELF-CARE Condition: Stable Departure-Patient Inst. Decision time for Depature: 00:14 Referrals: TELMA ABDALLA MD (PCP/Family) Primary Care Physician Patient Instructions: Malignant 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 (DC) Add. Discharge Instructions: Check your blood pressure once a day 3-4 times a week until you see your primary care doctor in the next 1 to 2 weeks. Lisinopril 40 mg daily until you see your primary care doctor. If your blood pressure goes above 200/110 then take a clonidine every 12 hours as needed. If you experience chest pain, shortness of air, facial droop, slurred speech, weakness or numbness then return to the ER promptly. All discharge instructions reviewed with patient and/or family. Voiced understanding. Scripts Clonidine HCl (Clonidine HCl) 0.1 Mg Tablet 0.1 MG PO BID PRN for htn 200/110, #14 TAB 0 Refills Prov: SCARLETT MURRY 11/14/21 Copy Copies To 1: TELMA ABDALLA MD, TITUS J Nov 13, 2021 22:47
[2021-11-13] MEDS ORDERED: cloNIDine 0.1 MG (CATAPRES) TAB PO ONE (23:30)
[2021-11-14] MEDS ORDERED: CLN.1T PO (00:17)
[2021-11-14 00:45] VITALS: BP 183/88
--- NOTE | 2021-11-14 07:24 | Diagnostic Imaging Report ---
INDICATION: 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 and chest pain. COMPARISON: 06/17/2020. DISCUSSION: A single portable upright view of the chest was obtained. Mild cardiomegaly is stable. No failure. No consolidation, pleural fluid, or pneumothorax. No osseous abnormality. Left-sided port is stable. IMPRESSION: Stable cardiomegaly without failure. Dictated by: Dictated on workstation # [id number]
== END 2021-11-14 00:46 | disposition home or self-care (01) ==
LOC: EDUNIT# 21:11 → ER 21:14
DX: I10 Essential (primary) hypertension (principal)
CPT/HCPCS: 36415; 71045; 80053; 81000; 84484; 85025; 86141; 93005

== ENCOUNTER 2021-11-20 06:43 | Observation (INO) | payer MEDICARE, OTHER ==
[2021-11-20] VITALS (14 sets, daily range): BP systolic 136–181; BP diastolic 58–92
[~2021-11-20] VITALS: Ht 167 cm; Wt 91.0 kg
[~2021-11-20 06:43] MED LIST changes: +CLN.1T PO
[2021-11-20] MEDS ORDERED: MECLIZINE 25 MG (ANTIVERT) TAB PO ONE (07:00)
[2021-11-20] MEDS ORDERED: PROMETHAZINE INJ 25 MG/ML (PHENERGAN) AMP IVP ONE (07:00)
[2021-11-20 07:03] LABS: BASOPHILS # (AUTO) 0.1 10^3/uL (0.0-0.1); BASOPHILS % (AUTO) 1 % (0-10); EOSINOPHILS # (AUTO) 0.2 10^3/uL (0.0-0.3); EOSINOPHILS % (AUTO) 4 % (0-10); HEMATOCRIT 42 % (35-52); HEMOGLOBIN 13.5 g/dL (11.5-16.0); LYMPHOCYTES # (AUTO) 3.1 10^3/uL (1.0-4.0); LYMPHOCYTES % (AUTO) 47 % (12-44); MEAN CORPUSCULAR HEMOGLOBIN 31 pg (25-34); MEAN CORPUSCULAR HGB CONC 32 g/dL (32-36); MEAN CORPUSCULAR VOLUME 96 fL (80-99); MEAN PLATELET VOLUME 9.2 fL (9.0-12.2); MONOCYTES # (AUTO) 0.8 10^3/uL (0.0-1.0); MONOCYTES % (AUTO) 11 % (0-12); NEUTROPHILS # (AUTO) 2.4 10^3/uL (1.8-7.8); NEUTROPHILS % (AUTO) 37 % (42-75); PLATELET COUNT 326 10^3/uL (130-400); WHITE BLOOD COUNT 6.6 10^3/uL (4.3-11.0)
[2021-11-20] MEDS ORDERED: ONDANSETRON 4 MG/2 ML (SDV) Z0FRAN ONE (07:05)
[2021-11-20 07:06] LABS: POTASSIUM 3.8 MMOL/L (3.6-5.0)
[2021-11-20 07:07] LABS: CALCIUM 9.8 MG/DL (8.5-10.1)
[2021-11-20 07:08] LABS: INR 0.9 (0.8-1.4); PROTHROMBIN TIME PATIENT 12.4 SEC (12.2-14.7); TOTAL PROTEIN 7.1 GM/DL (6.4-8.2)
[2021-11-20 07:10] LABS: BILIRUBIN,TOTAL 0.3 MG/DL (0.1-1.0)
[2021-11-20 07:12] LABS: CREATININE SERUM 0.9 MG/DL (0.60-1.30)
[2021-11-20 07:15] LABS: MAGNESIUM 2.3 MG/DL (1.6-2.4)
[2021-11-20] MEDS ORDERED: hydrALAZINE (APESOLINE) 20 MG/ML VIAL IV ONE (07:30)
[2021-11-20] MEDS ORDERED: lisINopril 20 MG (PRINIVIL) TABLET PO ONE (07:30)
--- NOTE | 2021-11-20 07:30 | ED General ---
General Chief Complaint: Cardiac/General Problems Stated Complaint: HYPERTENSION Nursing Triage Note: Patient presented to the ER today with complaints of HTN and vomiting. Patients initial blood pressure was 207/110. Family advises it has been difficult regulate her BP. Source of Information: Patient, Old Records Exam Limitations: No Limitations History of Present Illness Date Seen by Provider: Nov 20, 2021 Time Seen by Provider: 06:47 Initial Comments This 86-year-old woman presents to the emergency room via EMS after waking this morning with vertiginous dizziness, vomiting, and markedly elevated blood pressure. Blood pressure for EMS was 240/122. She was seen for accelerated hypertension on November 13 as well. She was treated to the ER and discharged with a prescription for as needed clonidine. She reports she has not needed to take the clonidine. She intended to take it this morning when her blood pressure was markedly elevated, but she could not take it due to nausea and vomiting. EMS administered Zofran 4 mg IV. She is still nauseous after that dose. She describes her dizziness as a spinning sensation that resolves if she holds her head still. She did get dizzy transferring to the ER bed and raising her head. She does not have any chest pain or shortness of breath. She was noted to have hypoxia as low as 83% on room air. She does report history of sleep apnea and uses CPAP. She appears neurologically intact. At her last ER visit she was instructed to increase her lisinopril to 40 mg daily. She has been taking 20 mg twice daily for the past week. She has not yet taken her morning dose of lisinopril today. She has noted some mild lower extremity edema recently. Dr. Abdalla is her primary care provider. She has seen Dr. Dick in the past but does not follow with him routinely. CTA head and neck in 2019 showed no large vessel occlusions or stenosis. Patient reports a prior history of lymphoma. Allergies and Home Medications Allergies Coded Allergies: sulfamethoxazole (Verified Allergy, Unknown, 01/11/19) trimethoprim (Verified Allergy, Unknown, 01/11/19) Uncoded Allergies: SULFA (Allergy, Mild, HIVES, 04/21/10) Patient Home Medication List Home Medication List Reviewed: Yes Aspirin (Aspirin EC) 81 Mg Tablet., 81 MG PO DAILY Prescribed by: KAYCEE DIAZ on 06/18/20 3253 Clonidine HCl (Clonidine HCl) 0.1 Mg Tablet, 0.1 MG PO BID PRN for htn 200/110 Prescribed by: SCARLETT MURRY on 11/14/21 0017 Lisinopril (Lisinopril) 20 Mg Tablet, 20 MG PO DAILY Prescribed by: KAYCEE DIAZ on 06/18/20 1017 Review of Systems Review of Systems Constitutional: no symptoms reported EENTM: no symptoms reported Respiratory: no symptoms reported Cardiovascular: see HPI Gastrointestinal: see HPI Genitourinary: no symptoms reported Musculoskeletal: no symptoms reported Skin: no symptoms reported Psychiatric/Neurological: See HPI Hematologic/Lymphatic: No Symptoms Reported Immunological/Allergic: no symptoms reported Past Meoqbtd-Puvswb-Tuzlgu Hx Patient Social History Tobacco Use?: No Use of E-Cig and/or Vaping dev: No Substance use?: No Alcohol Use?: No Immunizations Up To Date PED Vaccines UTD: No Seasonal Allergies Seasonal Allergies: No Past Medical History Surgeries: Yes Eye Surgery Respiratory: Yes Sleep Apnea (Uses CPAP) Currently Using CPAP: No Currently Using BIPAP: No Cardiac: Yes 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, Palpitations Neurological: No 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 Disorders: No Female 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 Disorders: 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 Sexually Transmitted Disease: No HIV/AIDS: No Gastrointestinal: No Musculoskeletal: Yes Arthritis Endocrine: No Loss of Vision: Denies Hearing Impairment: Denies Cancer: Yes Lymphoma Psychosocial: No Blood Disorders: No Adverse Reaction/Blood Tranf: No (PT REFUSES TO TAKE BLOOD PRODUCTS DUE TO QUAKER) Family Medical History 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 Physical Exam Vital Signs Vital Signs - First Documented 11/20/21 06:50 Temp 35.8 Pulse 73 Resp 18 B/P (MAP) 207/110 (142) Pulse Ox 96 O2 Delivery Room Air O2 Flow Rate 2.00 Capillary Refill : Less Than 3 Seconds Height, Weight, BMI Height: 5'6.00" Weight: 190lbs. 0.0oz. 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 Norm as Tested Skin: Normal Color, Warm/Dry Progress/Results/Core Measures Suspected Sepsis SIRS Temperature: Pulse: 73 Respiratory Rate: 18 Laboratory Tests 11/20/21 06:47: White Blood Count 6.6 Blood Pressure 207 /110 Mean: 142 Laboratory Tests 11/20/21 06:47: Creatinine 0.90, INR Comment 0.9, Platelet Count 326, Total Bilirubin 0.3 Results/Orders Lab Results Laboratory Tests Test 11/20/21 06:47 Range/Units White Blood Count 6.6 4.3-11.0 10^3/uL Red Blood Count 4.35 3.80-5.11 10^6/uL Hemoglobin 13.5 11.5-16.0 g/dL Hematocrit 42 35-52 % Mean Corpuscular Volume 96 80-99 fL Mean Corpuscular Hemoglobin 31 25-34 pg Mean Corpuscular Hemoglobin Concent 32 32-36 g/dL Red Cell Distribution Width 14.8 H 10.0-14.5 % Platelet Count 326 130-400 10^3/uL Mean Platelet Volume 9.2 9.0-12.2 fL Immature Granulocyte % (Auto) 0 % Neutrophils (%) (Auto) 37 L 42-75 % Lymphocytes (%) (Auto) 47 H 12-44 % Monocytes (%) (Auto) 11 0-12 % Eosinophils (%) (Auto) 4 0-10 % Basophils (%) (Auto) 1 0-10 % Neutrophils # (Auto) 2.4 1.8-7.8 10^3/uL Lymphocytes # (Auto) 3.1 1.0-4.0 10^3/uL Monocytes # (Auto) 0.8 0.0-1.0 10^3/uL Eosinophils # (Auto) 0.2 0.0-0.3 10^3/uL Basophils # (Auto) 0.1 0.0-0.1 10^3/uL Immature Granulocyte # (Auto) 0.0 0.0-0.1 10^3/uL Prothrombin Time 12.4 12.2-14.7 SEC INR Comment 0.9 0.8-1.4 Activated Partial Thromboplast Time 30 24-35 SEC Sodium Level 142 135-145 MMOL/L Potassium Level 3.8 3.6-5.0 MMOL/L Chloride Level 107 98-107 MMOL/L Carbon Dioxide Level 20 L 21-32 MMOL/L Anion Gap 15 H 5-14 MMOL/L Blood Urea Nitrogen 24 H 7-18 MG/DL Creatinine 0.90 0.60-1.30 MG/DL Estimat Glomerular Filtration Rate 61 BUN/Creatinine Ratio 27 Glucose Level 142 H 70-105 MG/DL Calcium Level 9.8 8.5-10.1 MG/DL Corrected Calcium 9.8 8.5-10.1 MG/DL Magnesium Level 2.3 1.6-2.4 MG/DL Total Bilirubin 0.3 0.1-1.0 MG/DL Aspartate Amino Transf (AST/SGOT) 24 5-34 U/L Alanine Aminotransferase (ALT/SGPT) 27 0-55 U/L Alkaline Phosphatase 88 40-136 U/L Myoglobin 36.9 10.0-92.0 NG/ML Troponin I < 0.028 <0.028 NG/ML B-Type Natriuretic Peptide 70.5 <100.0 PG/ML Total Protein 7.1 6.4-8.2 GM/DL Albumin 4.0 3.2-4.5 GM/DL Thyroid Stimulating Hormone (TSH) 2.30 0.35-4.94 UIU/ML My Orders Orders - ELIANE BURDEN MD Cbc With Automated Diff (11/20/21 06:55) Magnesium (11/20/21 06:55) Chest 1 View, Ap/Pa Only (11/20/21 06:55) Ekg Tracing (11/20/21 06:55) Comprehensive Metabolic Panel (11/20/21 06:55) Myoglobin Serum (11/20/21 06:55) Protime With Inr (11/20/21 06:55) Partial Thromboplastin Time (11/20/21 06:55) O2 (11/20/21 06:55) Monitor-Rhythm Ecg Trace Only (11/20/21 06:55) Lipid Panel (11/21/21 06:00) Ed Iv/Invasive Line Start (11/20/21 06:55) Bnp Andrey (11/20/21 06:55) Troponin I [place] (11/20/21 06:55) Promethazine Injection (Phenergan Injec (11/20/21 07:00) Meclizine Tablet (Antivert Tablet) (11/20/21 07:00) Ct Head Wo (11/20/21 06:55) Thyroid Stimulating Hormone (11/20/21 06:55) Ondansetron Injection (Zofran Injectio (11/20/21 07:05) Hydralazine Injection (Apresoline Inject (11/20/21 07:30) Lisinopril Tablet (Zestril Tablet) (11/20/21 07:30) Code/Resuscitation (11/20/21 09:37) Medications Given in ED Current Medications Medications Dose Ordered Sig/Eulogio Route Start Time Stop Time Status Last Admin Dose Admin Hydralazine HCl 10 mg ONCE ONCE IV 11/20/21 07:30 11/20/21 07:31 DC 11/20/21 07:34 10 MG Lisinopril 20 mg ONCE ONCE PO 11/20/21 07:30 11/20/21 07:31 DC 11/20/21 08:02 20 MG Meclizine HCl 12.5 mg ONCE ONCE PO 11/20/21 07:00 11/20/21 07:01 DC 11/20/21 08:02 12.5 MG Ondansetron HCl 4 mg STK-MED ONCE .ROUTE 11/20/21 07:05 11/20/21 07:07 DC 11/20/21 07:10 4 MG Promethazine HCl 12.5 mg ONCE ONCE IVP 11/20/21 07:00 11/20/21 07:01 DC 11/20/21 07:10 12.5 MG Vital Signs/I&O 11/20/21 11/20/21 06:50 07:00 Temp 35.8 Pulse 73 Resp 18 B/P (MAP) 207/110 (142) Pulse Ox 96 95 O2 Delivery Room Air Nasal Cannula O2 Flow Rate 2.00 1.50 Capillary Refill : Less Than 3 Seconds Blood Pressure Mean: 142 Progress Note #1: Time: 07:25 Progress Note Patient continued to experience nausea after receiving Zofran 4 mg IV by EMS. A second dose of Zofran was administered. Because of the vertigo she is also receiving a dose of Phenergan 25 mg by mini infuser. If dizziness persists, we will also give meclizine. This dizziness appears to be vertiginous in nature and is absent if she holds her head still. CT head is pending. Despite improving her nausea, her blood pressure is still quite high at 225/96. Hydralazine 10 mg IV and her usual lisinopril 20 mg p.o. have been ordered. Patient normally takes lisinopril 20 mg twice daily since Monday but has not taken her dose yet this morning. Progress Note #2: Time: 09:[address] head demonstrated no acute abnormalities. Blood pressure is now much improved with systolic pressures in the 160s. Patient still feels very dizzy with any movement of any kind despite treatment. I do not think she would tolerate an Girma maneuver at this time. I have proposed admitting for observation and perhaps an Girma maneuver later in the day if she can better tolerate it. Patient, family, and Dr. Pompa are in agreement with admission. I discussed CODE STATUS, and patient would like to have a DNR order. Progress Note #3: Time: 09:43 Progress Note Patient complains of leg cramping. Norflex has been ordered. ECG Initial ECG Impression Date: Nov 20, 2021 Initial ECG Impression Time: 07:23 Initial ECG Rate: 68 Initial ECG Rhythm: Normal Sinus Comment Normal sinus rhythm with no ST elevation or depression. No abnormal intervals. LVH noted with left axis deviation. Diagnostic Imaging Diagonstic Imaging: Xray Plain Films/CT/US/NM/MRI: chest Comments Chest x-ray viewed by me and report reviewed. See report below: NAME: JAMES BARRIENTOS [facility] REC#: [id number] PT STATUS: REG ER : 1935 PHYSICIAN: ELIANE BURDEN MD ADMIT DATE: 11/20/21/ER Draft Date of Exam:11/20/21 CHEST 1 VIEW, AP/PA ONLY Indication: Dizziness, vomiting. Compared: 11/13/2021 Findings: Left subclavian line at the cavoatrial junction stable. No pneumothorax. Lungs are clear. No failure, effusion or free air beneath the diaphragms. Impression: Stable chest Dictated on workstation # [id number] Dict: 11/20/21 0748 Trans: 11/20/21 0750 CV [id number] Interpreted by: CARRIE GEE Diagonstic Imaging: CT Plain Films/CT/US/NM/MRI: head Comments CT head viewed by me and report reviewed. I discussed with the radiologist. See report below: NAME: JAMES BARRIENTOS [facility] REC#: [id number] PT STATUS: REG ER : 1935 PHYSICIAN: ELIANE BURDEN MD ADMIT DATE: 11/20/21/ER Signed Date of Exam:11/20/21 CT HEAD WO PROCEDURE: CT head without contrast. TECHNIQUE: Multiple contiguous axial images were obtained through the brain without the use of intravenous contrast. Auto Exposure Controls were utilized during the CT exam to meet ALARA standards for radiation dose reduction. INDICATION: Dizziness, hypertensive emergency. COMPARISON: CT head from 06/17/2020. FINDINGS: Stable global atrophy. No intracranial hyperdense hemorrhage or space-occupying mass. No hydrocephalus or midline shift. Cee-white matter differentiation is well preserved. Subtle periventricular hypoattenuation is unchanged and most compatible with chronic microvascular ischemic changes. No acute skull fracture. Paranasal sinuses and mastoid air cells are clear. IMPRESSION: No acute intracranial process by CT. Dictated by: Dictated on workstation # [id number] Dict: 11/20/2143 Trans: 11/20/21 0858 CV [id number] Interpreted by: DOROTHY ARMSTRONG MD Electronically signed by: DOROTHY ARMSTRONG MD 11/20/21 0858 Departure Communication (Admissions) Time/Spoke to Admitting Phy: 09:30 Dr. Mosher Impression Primary Impression: Hypertensive emergency Additional Impression: Vertigo Disposition: ADMITTED INPATIENT Condition: Stable Admissions Decision to Admit Reason: Admit from ER (General) Decision to Admit/Date: Nov 20, 2021 Time/Decision to Admit Time: 09:30 Departure-Patient Inst. Referrals: TELMA ABDALLA MD (PCP/Family) Primary Care Physician ELIANE BURDEN MD Nov 20, 2021 07:30
--- NOTE | 2021-11-20 07:50 | Diagnostic Imaging Report ---
Indication: Dizziness, vomiting. Compared: 11/13/2021 Findings: Left subclavian line at the cavoatrial junction stable. No pneumothorax. Lungs are clear. No failure, effusion or free air beneath the diaphragms. Impression: Stable chest Dictated by: Dictated on workstation # [id number]
--- NOTE | 2021-11-20 08:46 | Diagnostic Imaging Report ---
PROCEDURE: CT head without contrast. TECHNIQUE: Multiple contiguous axial images were obtained through the brain without the use of intravenous contrast. Auto Exposure Controls were utilized during the CT exam to meet ALARA standards for radiation dose reduction. INDICATION: Dizziness, hypertensive emergency. COMPARISON: CT head from 06/17/2020. FINDINGS: Stable global atrophy. No intracranial hyperdense hemorrhage or space-occupying mass. No hydrocephalus or midline shift. Cee-white matter differentiation is well preserved. Subtle periventricular hypoattenuation is unchanged and most compatible with chronic microvascular ischemic changes. No acute skull fracture. Paranasal sinuses and mastoid air cells are clear. IMPRESSION: No acute intracranial process by CT. Dictated by: Dictated on workstation # [id number]
[2021-11-20] MEDS ORDERED: ORPHENADRINE 60 MG/2 ML (NORFLEX) AMP (ED ONLY) IV ONE (09:45)
--- NOTE | 2021-11-20 11:16 | History & Physical-Hospitalist ---
History of Present Illness HPI/Chief Complaint Patient is an 86-year-old female with a past medical history of hypertension who presented to the emergency department due to vertigo. History of vertigo roughly 2 years ago and was actually seen in the emergency department a week or so ago due to hypertension though did not have any vertigo symptoms at that time. This morning she awoke from sleep around 5am with dizziness and was vomiting. EMS was summoned and her blood pressure was reportedly 240/122. She was given 10 of hydralazine by the ER which improved her blood pressure but did not help with her dizziness. A CT head was done and was negative for intracranial hemorrhage. She was given 8 mg of Zofran and 12.5 mg of Phenergan and 12.5 mg of meclizine but still remained incredibly dizzy and even vomited in the emergency department. She was admitted for further management. She is still quite nauseated and is actively retching while I am at bedside. Exam Limitations: clinical condition Date Seen 11/20/21 Time Seen by a Provider: 11:12 Attending Physician Daniel Mosher MD PCP Marcela Abdalla MD Referring Physician Date of Admission Nov 20, 2021 at 09:40 Home Medications & Allergies Home Medications Reviewed patient Home Medication Reconciliation performed by pharmacy medication reconciliations gis technician and/or nursing. Patients Allergies have been reviewed. Allergies Allergies Coded Allergies sulfamethoxazole (Verified Allergy, Unknown, 01/11/19) trimethoprim (Verified Allergy, Unknown, 01/11/19) Uncoded Allergies SULFA ( Allergy, Mild, HIVES, 04/21/10) Past Zbsoans-Vedgtr-Wkeulf Hx Patient Social History Employed/Student: retired Tobacco Use?: No Use of E-Cig and/or Vaping dev: No Substance use?: No Alcohol Use?: No Pt feels they are or have been: No Immunizations Up To Date PED Vaccines UTD: No Seasonal Allergies Seasonal Allergies: No Current Status status: No status: No Advance Directives: No Communicates: Verbally Primary Language: [place] Preferred Spoken Language: [place] Is interpretation needed?: No Implanted or Applied Medical D: None Past Medical History Surgeries: Eye Surgery Sleep Apnea (Uses CPAP) Currently Using CPAP: No Currently Using BIPAP: No 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, 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 Sexually Transmitted Disease: No HIV/AIDS: No Arthritis Loss of Vision: Denies Hearing Impairment: Denies Lymphoma Blood Disorders: No Adverse Reaction/Blood Tranf: No (PT REFUSES TO TAKE BLOOD PRODUCTS DUE TO YARSANI) Family Medical History Reviewed Nursing Family Hx No Pertinent Family Hx, 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 Review of Systems Constitutional: No chills, No fever EENTM: No blurred vision Respiratory: No cough Cardiovascular: No chest pain Gastrointestinal: nausea, vomiting Genitourinary: no symptoms reported Musculoskeletal: no symptoms reported Skin: no symptoms reported Psychiatric/Neurological: See HPI Physical Exam Physical Exam Vital Signs Vital Signs - First Documented 11/20/21 11/20/21 06:50 23:59 Temp 35.8 Pulse 73 Resp 18 B/P (MAP) 207/110 (142) Pulse Ox 96 O2 Delivery Room Air O2 Flow Rate 2.00 FiO2 21 Capillary Refill : Less Than 3 Seconds Height, Weight, BMI Height: 5'6.00" Weight: 190lbs. 0.0oz. 86.717714ej; 32.00 BMI Method:Stated General Appearance: Mild Distress (retching while at bedside, appears to not feel well), Obese HEENT: PERRL/EOMI, Moist Mucous Membranes; No Scleral Icterus (L), No Scleral Icterus (R) Neck: Normal Inspection, Supple Respiratory: Lungs Clear, No Accessory Muscle Use, No Respiratory Distress Cardiovascular: Regular Rate, Rhythm, No JVD, No Murmur Gastrointestinal: Normal Bowel Sounds, Non Tender, Soft Extremity: No Calf Tenderness, No Pedal Edema Neurologic/Psychiatric: Alert, Oriented x3, Normal Mood/Affect Skin: Normal Color, Warm/Dry Results Results/Procedures Labs Laboratory Tests 11/20/21 06:47 11/21/21 04:02 Patient resulted labs reviewed. [facility] [place] [place] NAME: JAMES BARRIENTOS [facility] REC#: [id number] PT STATUS: REG ER : 1935 PHYSICIAN: ELIANE BURDEN MD ADMIT DATE: 11/20/21/ER Signed Date of Exam:11/20/21 CHEST 1 VIEW, AP/PA ONLY Indication: Dizziness, vomiting. Compared: 11/13/2021 Findings: Left subclavian line at the cavoatrial junction stable. No pneumothorax. Lungs are clear. No failure, effusion or free air beneath the diaphragms. Impression: Stable chest Dictated by: Dictated on workstation # [id number] Dict: 11/20/2148 Trans: 11/20/21804 CVB [id number] Interpreted by: CARRIE GEE Electronically signed by: CARRIE GEE 11/20/21804 [facility] [place] NAME: JAMES BARRIENTOS [facility] REC#: [id number] PT STATUS: REG ER : 1935 PHYSICIAN: ELIANE BURDEN MD ADMIT DATE: 11/20/21/ER Signed Date of Exam:11/20/21 CT HEAD WO PROCEDURE: CT head without contrast. TECHNIQUE: Multiple contiguous axial images were obtained through the brain without the use of intravenous contrast. Auto Exposure Controls were utilized during the CT exam to meet ALARA standards for radiation dose reduction. INDICATION: Dizziness, hypertensive emergency. COMPARISON: CT head from 06/17/2020. FINDINGS: Stable global atrophy. No intracranial hyperdense hemorrhage or space-occupying mass. No hydrocephalus or midline shift. Cee-white matter differentiation is well preserved. Subtle periventricular hypoattenuation is unchanged and most compatible with chronic microvascular ischemic changes. No acute skull fracture. Paranasal sinuses and mastoid air cells are clear. IMPRESSION: No acute intracranial process by CT. Dictated by: Dictated on workstation # [id number] Dict: 11/20/2143 Trans: 11/20/21857 CVB [id number] Interpreted by: DOROTHY ARMSTRONG MD Electronically signed by: DOROTHY ARMSTRONG MD 11/20/21857 Assessment/Plan Admission Diagnosis HTN Emergency Admission Status: Inpatient Order (span 2 midnights) Reason for Inpatient Admission: see below Assessment and Plan HTN Emergency Vertigo Failed outpatient management already with prn clonidine and increased Lisinopril by Dr Bucio Resume home meds if she can tolerate oral Hydralazine prn Consider MRI brain monday if no improvement Unable to tolerate Girma maneuver in the ER DVT ppx: SCDs only for today due to very high BP Diagnosis/Problems Diagnosis/Problems (1) Hypertensive emergency Status: Acute (2) Vertigo Status: Acute (3) Nausea & vomiting Status: Acute Qualifiers: Vomiting type: unspecified Qualified Codes: R11.2 - Nausea with vomiting, unspecified Clinical Quality Measures AMI/AHF: ASA po Prior to arrival: DANIEL Gandhi MD Nov 20, 2021 11:16
[2021-11-20] MEDS ORDERED: PROMETHAZINE INJ 25 MG/ML (PHENERGAN) AMP IV PRN (11:45)
[2021-11-20] MEDS ORDERED: hydrALAZINE (APESOLINE) 20 MG/ML VIAL IV PRN (11:45)
[2021-11-20] MEDS ORDERED: ONDANSETRON 4 MG/2 ML (SDV) Z0FRAN IV PRN (11:45)
[2021-11-20] MEDS ORDERED: MECLIZINE 25 MG (ANTIVERT) TAB PO PRN (11:45)
[2021-11-20] MEDS ORDERED: SCOPOLAMINE 1.5 MG (TRANSDERM-SCOP) PATCH TD NR (12:00)
--- NOTE | 2021-11-20 12:06 | Tele-ICU Consult ---
History of Present Illness History of Present Illness Date Seen by Provider: Nov 20, 2021 Time Seen by Provider: 12:05 Date of Admission (Tele-ICU Physician , consultation) Available chart/ vitals / labs / Images reviewed H&P is from ER notes Patient's information available about PMH, Shx, Fhx allergy reviewed in EMR. ROS as per chart and RN report Now in ICU Video assessment done using teleICU camera, rest of exam as per RN Discussed with RN. Consultants: [facility] Hospital course: (11/20) 86 Y c/o dizziness, vertigo and vomiting dx. HTN urgency A/P HTN emergency ( Hypertensive encephalopathy = presented with N/V/ diszziness) , and bp 240/122. MAP 142 - BP already decrease 20% in ER = MAP 110 now - by tomorrow decrease 25% from presentation goal MAP 100 vertigo - ? Hypertensive encephalopathy CTH - no acute findings follow closely with BP control Lines : left ScL 11/20 (Central Line Necessity Reviewed) Ayala: OG: Nutrition: Analgesia: Anxiety/ delirium VTE Prophylaxis: scd Stress Ulcer Prophylaxis: po Plans in collaboration with bedside consultants and IM MDs. Discussed with RN to reach out if any questions or concerns A total of 20minutes of critical care time was devoted to this patient today, required to treat and/or prevent further deterioration of critical care condition ( as above ) . Allergies and Home Medications Allergies Coded Allergies: sulfamethoxazole (Verified Allergy, Unknown, 01/11/19) trimethoprim (Verified Allergy, Unknown, 01/11/19) Uncoded Allergies: SULFA (Allergy, Mild, HIVES, 04/21/10) Home Medications Clonidine HCl 0.1 Mg Tablet, 0.1 MG PO BID PRN for htn 200/110 Prescribed by: SCARLETT MURRY on 11/14/21 0017 Lisinopril 20 Mg Tablet, 20 MG PO DAILY Prescribed by: KAYCEE DIAZ on 06/18/20 1017 Past Medical/Social/Family Hx Patient Social History Employed/Student: retired Tobacco Use?: No Use of E-Cig and/or Vaping dev: No Substance use?: No Alcohol Use?: No Pt stated abuse/neglect: No Current Status status: No status: No Advance Directives: No Communicates: Verbally Primary Language: Swedish Preferred Spoken Language: Swedish Is interpretation needed?: No Implanted or Applied Medical D: None Review of Systems Constitutional: see HPI Focused Exam Height, Weight, BMI Height: 5'6.00" Weight: 190lbs. 0.0oz. 86.558637hs; 32.00 BMI Method:Stated Exam Exam Patient acknowledged, consented, and participated in this virtual visit which was conducted using real time audio/video Vital Signs Date Time Temp Pulse Resp B/P (MAP) Pulse Ox O2 Delivery O2 Flow Rate FiO2 11/20/21 11:00 69 15 168/86 (113) 96 Nasal Cannula 1.50 11/20/21 10:47 97 Room Air 11/20/21 10:31 71 11/20/21 10:30 74 15 172/73 (106) 93 Nasal Cannula 1.50 11/20/21 09:58 73 18 179/83 95 Nasal Cannula 1.50 1.50 11/20/21 07:00 95 Nasal Cannula 1.50 11/20/21 06:50 35.8 73 18 207/110 (142) 96 Room Air 2.00 Height & Weight Height: 5'6.00" Weight: 190lbs. 0.0oz. 86.477121cw; 32.00 BMI Method:Stated General Appearance: No Apparent Distress, Mild Distress (retching while at bedside, appears to not feel well), Obese HEENT: PERRL/EOMI, Moist Mucous Membranes; No Scleral Icterus (L), No Scleral Icterus (R) Neck: Normal Inspection, Supple Respiratory: Lungs Clear, No Accessory Muscle Use, No Respiratory Distress Cardiovascular: Regular Rate, Rhythm, No JVD, No Murmur Capillary Refill: Less Than 3 Seconds Extremity: No Calf Tenderness, No Pedal Edema Neurologic/Psychiatric: Alert, Oriented x3, Normal Mood/Affect Skin: Normal Color, Warm/Dry Results Lab Laboratory Tests 11/20/21 06:47 Assessment/Plan Assessment/Plan . AMRIT SULLIVAN MD Nov 20, 2021 12:05
[2021-11-20] MEDS: LACTATED RINGERS 1,000 ML IV SCH (17:00)
[2021-11-20] MEDS ORDERED: NAPROXEN 250 MG (NAPROSYN) TABLET PO PRN ×2 (18:00→20:45)
[2021-11-20] MEDS ORDERED: NAPROXEN 250 MG (NAPROSYN) TABLET PO ONE (18:35)
[2021-11-21] VITALS (25 sets, daily range): BP systolic 95–175; BP diastolic 44–105
[2021-11-21] MEDS: LACTATED RINGERS 1,000 ML IV SCH (01:33)
[2021-11-21 04:18] LABS: BASOPHILS % (AUTO) 1 % (0-10); EOSINOPHILS # (AUTO) 0.1 10^3/uL (0.0-0.3); EOSINOPHILS % (AUTO) 2 % (0-10); HEMATOCRIT 37 % (35-52); LYMPHOCYTES # (AUTO) 1.5 10^3/uL (1.0-4.0); LYMPHOCYTES % (AUTO) 25 % (12-44); MEAN CORPUSCULAR HEMOGLOBIN 31 pg (25-34); MEAN CORPUSCULAR HGB CONC 32 g/dL (32-36); MEAN CORPUSCULAR VOLUME 96 fL (80-99); MEAN PLATELET VOLUME 9.1 fL (9.0-12.2); MONOCYTES # (AUTO) 0.8 10^3/uL (0.0-1.0); MONOCYTES % (AUTO) 13 % (0-12); NEUTROPHILS # (AUTO) 3.5 10^3/uL (1.8-7.8); NEUTROPHILS % (AUTO) 59 % (42-75); PLATELET COUNT 277 10^3/uL (130-400); WHITE BLOOD COUNT 5.9 10^3/uL (4.3-11.0)
[2021-11-21 04:27] LABS: ALBUMIN 3.2 GM/DL (3.2-4.5); POTASSIUM 4.2 MMOL/L (3.6-5.0)
[2021-11-21 04:28] LABS: CALCIUM 9.1 MG/DL (8.5-10.1)
[2021-11-21 04:30] LABS: TOTAL PROTEIN 5.8 GM/DL (6.4-8.2)
[2021-11-21 04:31] LABS: BILIRUBIN,TOTAL 0.5 MG/DL (0.1-1.0)
[2021-11-21 04:33] LABS: CREATININE SERUM 0.83 MG/DL (0.60-1.30); PHOSPHORUS 2.7 MG/DL (2.3-4.7)
[2021-11-21 04:36] LABS: MAGNESIUM 2.1 MG/DL (1.6-2.4)
[2021-11-21 04:49] LABS: ATYPICAL LYMPHOCYTES 1 %; BASOPHILS % (MANUAL) 1 %; EOSINOPHILS % (MANUAL) 1 %; LYMPHOCYTES % (MANUAL) 25 %; MICROCYTOSIS SLIGHT; MONOCYTES % (MANUAL) 10 %; NEUTROPHILS % (MANUAL) 62 %
[2021-11-21 07:13] LABS: TRIGLYCERIDES 105 MG/DL (<150); VLDL CHOLESTEROL 21 MG/DL (5-40)
[2021-11-21 07:18] LABS: CHOLESTEROL 235 MG/DL (< 200)
[2021-11-21 07:19] LABS: HDL CHOLESTEROL 47 MG/DL (40-60)
[2021-11-21] MEDS: lisINopril 20 MG (PRINIVIL) TABLET PO SCH (09:55)
--- NOTE | 2021-11-21 09:57 | Progress Note - Hospitalist ---
Subjective HPI/CC On Admission Date Seen by Provider: Nov 21, 2021 Time Seen by Provider: 09:53 Patient is an 86-year-old female with a past medical history of hypertension who presented to the emergency department due to vertigo. History of vertigo roughly 2 years ago and was actually seen in the emergency department a week or so ago due to hypertension though did not have any vertigo symptoms at that time. This morning she awoke from sleep around 5am with dizziness and was vomiting. EMS was summoned and her blood pressure was reportedly 240/122. She was given 10 of hydralazine by the ER which improved her blood pressure but did not help with her dizziness. A CT head was done and was negative for intracrani al hemorrhage. She was given 8 mg of Zofran and 12.5 mg of Phenergan and 12.5 mg of meclizine but still remained incredibly dizzy and even vomited in the emergency department. She was admitted for further management. She is still quite nauseated and is actively retching while I am at bedside. Subjective/Events-last exam Patient reports feeling much better. No more nausea or vomiting. Blood pressure improved as well. Would like to advance diet Objective Exam Vital Signs Vital Signs Date Time Temp Pulse Resp B/P (MAP) Pulse Ox O2 Delivery O2 Flow Rate FiO2 11/21/21 09:00 60 10 148/58 (88) 95 Room Air 11/21/21 07:19 36.7 11/21/21 04:00 21.00 11/21/21 04:00 21 Capillary Refill : Less Than 3 Seconds General Appearance: No Apparent Distress, WD/WN Respiratory: Lungs Clear, No Respiratory Distress Cardiovascular: Regular Rate, Rhythm, No Murmur Neurologic/Psychiatric: Alert, Oriented x3 Results/Procedures Lab Laboratory Tests 11/21/21 04:02 Patient resulted labs reviewed. Assessment/Plan Assessment and Plan Assess & Plan/Chief Complaint HTN Emergency Vertigo Improved BP Resume Lisinopril at 20mg Pt unsure what dose she is taking at home Hydralazine prn Hopefully home tomorrow if BP remains stable DVT ppx: Lovenox Diagnosis/Problems Diagnosis/Problems (1) Hypertensive emergency Status: Acute (2) Vertigo Status: Acute (3) Nausea & vomiting Status: Acute Qualifiers: Vomiting type: unspecified Qualified Codes: R11.2 - Nausea with vomiting, unspecified Clinical Quality Measures AMI/AHF: ASA po Prior to arrival: DANIEL Gandhi MD Nov 21, 2021 09:57
--- NOTE | 2021-11-21 16:04 | Tele-ICU Progress Note ---
Subjective Date Seen by a Provider: Nov 21, 2021 Time Seen by a Provider: 16:03 Subjective/Events-last exam (Tele-ICU Physician , Progress Note ) Available chart/ vitals / labs / Images reviewed Video assessment done using teleICU camera, rest of exam as per RN Discussed with RN , EXAM PER RN Events overnight : Afebrile FiO2 - ra I/O = even Drips: Pressors: , hemodynamically stable Consultants: [facility] Hospital course: (11/20) 86 Y c/o dizziness, vertigo and vomiting dx. HTN urgency A/P HTN emergency ( Hypertensive encephalopathy = presented with N/V/ diszziness) , and bp 240/122. MAP 142 - BP controlled - at goal with slow decrease vertigo - ? Hypertensive encephalopathy -CTH - no acute findings -follow closely with BP control Lines : left ScL 11/20 (Central Line Necessity Reviewed) Ayala: OG: Nutrition: Analgesia: Anxiety/ delirium VTE Prophylaxis: scd. ambulate Stress Ulcer Prophylaxis: po Plans in collaboration with bedside consultants and IM MDs. Discussed with RN to reach out if any questions or concerns A total of 20minutes of critical care time was devoted to this patient today, required to treat and/or prevent further deterioration of critical care condition ( as above ) . Sepsis Event Evaluation Height, Weight, BMI Height: 5'6.00" Weight: 190lbs. 0.0oz. 86.962008ex; 32.59 BMI Method:Stated Exam Exam Patient acknowledged, consented, and participated in this virtual visit which was conducted using real time audio/video Vital Signs Date Time Temp Pulse Resp B/P (MAP) Pulse Ox O2 Delivery O2 Flow Rate FiO2 11/21/21 15:00 69 145/78 (100) 95 Room Air 11/21/21 14:00 93 26 96/61 (73) 92 Room Air 11/21/21 13:00 75 19 140/57 (84) 93 Room Air 11/21/21 12:59 98 Room Air 11/21/21 12:50 58 11/21/21 12:00 60 12 132/67 (88) 97 Room Air 11/21/21 11:30 36.1 59 16 118/58 (78) 98 Room Air 11/21/21 11:00 63 11 131/57 (81) 96 Room Air 11/21/21 10:00 82 20 101/58 (72) 93 Room Air 11/21/21 09:00 60 10 148/58 (88) 95 Room Air 11/21/21 08:00 59 23 144/65 (91) 95 11/21/21 07:55 98 Room Air 11/21/21 07:19 36.7 64 18 141/62 (88) 94 Room Air 11/21/21 07:00 62 11/21/21 06:00 63 14 167/75 (105) 93 NIV CPAP 11/21/21 05:00 61 15 171/79 (109) 92 NIV CPAP 11/21/21 04:00 36.9 NIV CPAP 21.00 11/21/21 04:00 98 NIV CPAP 21 11/21/21 04:00 75 26 175/79 (111) 91 NIV CPAP 11/21/21 03:00 66 16 151/68 (95) 90 NIV CPAP 21.00 11/21/21 02:00 70 25 158/63 (94) 91 NIV CPAP 21.00 11/21/21 01:00 71 16 116/44 (68) 92 NIV CPAP 21.00 11/21/21 01:00 66 11/21/21 00:00 64 16 154/62 (92) 90 NIV CPAP 21.00 11/21/21 00:00 36.8 NIV CPAP 11/20/21 23:59 98 NIV CPAP 21 11/20/21 23:00 67 10 152/58 (89) 93 Room Air 11/20/21 22:51 NIV CPAP 11/20/21 22:00 74 22 149/63 (91) 93 Room Air 11/20/21 21:00 65 17 136/62 (86) 91 Room Air 11/20/21 20:00 65 15 151/62 (91) 91 Room Air 11/20/21 20:00 36.5 Room Air 11/20/21 20:00 98 Room Air 11/20/21 19:00 65 11/20/21 19:00 66 16 165/74 (104) 91 Room Air 11/20/21 18:00 70 16 168/76 (106) 90 Room Air 11/20/21 17:00 73 14 174/92 (119) 94 Room Air I & O 11/21/21 07:00 Intake Total 1600 ml Output Total 600 ml Balance 1000 ml Height & Weight Height: 5'6.00" Weight: 190lbs. 0.0oz. 86.041017iw; 32.59 BMI Method:Stated General Appearance: Mild Distress (retching while at bedside, appears to not feel well), Obese HEENT: PERRL/EOMI, Moist Mucous Membranes; No Scleral Icterus (L), No Scleral Icterus (R) Neck: Normal Inspection, Supple Respiratory: Lungs Clear, No Accessory Muscle Use, No Respiratory Distress Cardiovascular: Regular Rate, Rhythm, No JVD, No Murmur Capillary Refill: Less Than 3 Seconds Extremity: No Calf Tenderness, No Pedal Edema Neurologic/Psychiatric: Alert, Oriented x3, Normal Mood/Affect Skin: Normal Color, Warm/Dry Results Lab Laboratory Tests 11/20/21 06:47 11/21/21 04:02 Assessment/Plan Assessment/Plan ` AMRIT SULLIVAN MD Nov 21, 2021 16:04
[2021-11-22] VITALS (19 sets, daily range): BP systolic 131–180; BP diastolic 55–85
[2021-11-22 04:45] LABS: BASOPHILS # (AUTO) 0.1 10^3/uL (0.0-0.1); BASOPHILS % (AUTO) 1 % (0-10); EOSINOPHILS # (AUTO) 0.2 10^3/uL (0.0-0.3); EOSINOPHILS % (AUTO) 5 % (0-10); HEMATOCRIT 38 % (35-52); HEMOGLOBIN 12.4 g/dL (11.5-16.0); LYMPHOCYTES # (AUTO) 1.4 10^3/uL (1.0-4.0); LYMPHOCYTES % (AUTO) 28 % (12-44); MEAN CORPUSCULAR HEMOGLOBIN 32 pg (25-34); MEAN CORPUSCULAR HGB CONC 33 g/dL (32-36); MEAN CORPUSCULAR VOLUME 96 fL (80-99); MEAN PLATELET VOLUME 8.9 fL (9.0-12.2); MONOCYTES # (AUTO) 0.6 10^3/uL (0.0-1.0); MONOCYTES % (AUTO) 12 % (0-12); NEUTROPHILS # (AUTO) 2.7 10^3/uL (1.8-7.8); NEUTROPHILS % (AUTO) 54 % (42-75); PLATELET COUNT 289 10^3/uL (130-400)
[2021-11-22 04:54] LABS: ALBUMIN 3.3 GM/DL (3.2-4.5); POTASSIUM 4.3 MMOL/L (3.6-5.0)
[2021-11-22 04:56] LABS: CALCIUM 9.2 MG/DL (8.5-10.1)
[2021-11-22 04:57] LABS: TOTAL PROTEIN 5.8 GM/DL (6.4-8.2)
[2021-11-22 04:59] LABS: BILIRUBIN,TOTAL 0.5 MG/DL (0.1-1.0)
[2021-11-22 05:00] LABS: PHOSPHORUS 2.8 MG/DL (2.3-4.7)
[2021-11-22 05:01] LABS: CREATININE SERUM 0.95 MG/DL (0.60-1.30)
[2021-11-22 05:03] LABS: MAGNESIUM 2.2 MG/DL (1.6-2.4)
[2021-11-22 05:19] LABS: BASOPHILS % (MANUAL) 1 %; EOSINOPHILS % (MANUAL) 6 %; LYMPHOCYTES % (MANUAL) 32 %; MICROCYTOSIS SLIGHT; MONOCYTES % (MANUAL) 10 %; NEUTROPHILS % (MANUAL) 51 %
[2021-11-22] MEDS ORDERED: NS IV 500 ML 500 ML IV SCH (06:30)
[2021-11-22] MEDS: lisINopril 20 MG (PRINIVIL) TABLET PO SCH (08:09)
[2021-11-22] MEDS ORDERED: VITA40TA PO (09:59)
[2021-11-22] MEDS ORDERED: CRAMP DEFENSE PO (09:59)
[2021-11-22] MEDS ORDERED: ASCO-262 PO (09:59)
[2021-11-22] MEDS ORDERED: NAPR-1033 PO (09:59)
[2021-11-22] MEDS ORDERED: LISI10TA25 PO (09:59)
[2021-11-22] MEDS ORDERED: POTA2TAB5 PO (09:59)
[2021-11-22] MEDS ORDERED: VITA1TAB17 PO (09:59)
[2021-11-22] MEDS ORDERED: VITA100049 PO (09:59)
[2021-11-22] MEDS ORDERED: CLN.1T PO (09:59)
[2021-11-22] MEDS ORDERED: CALC-823 PO (09:59)
[2021-11-22] MEDS ORDERED: LISI20TA26 PO (17:01)
[2021-11-22] MEDS ORDERED: MECL-149 PO (17:01)
--- NOTE | 2021-11-22 17:03 | Discharge Inst-Simple/Standard ---
Discharge Inst-Standard Reconcile Patient Problems Problems Reviewed?: Yes Discharge Medications New, Converted or Re-Newed RX: Transmitted to Pharmacy Patient Instructions/Follow Up Plan of Care/Instructions/FU: [address] [facility] (if you already have an appt soon, keep that appt) Activity as Tolerated: Yes Discharge Diet: Regular Diet Health Concerns: hypertension Return to The Hospital For: any recurrent, uncontrolled blood pressure that is causing dizziness despite your use of the PRN clonidine for your elevated blood pressure, or any concern for lifethreatening illness or injury Medication List: Active Scripts Active Meclizine HCl 25 Mg Tablet 12.5 Mg PO Q6H PRN Lisinopril 20 Mg Tablet 20 Mg PO DAILY Reported Naproxen Sodium 220 Mg Tablet 220 Mg PO TID PRN Vitamin K2 40 Mcg Tablet 40 Mcg PO HS Potassium Gluconate 90 Mg Tablet 90 Mg PO HS Calcium (Calcium Carbonate) 500 Mg Tablet 500 Mg PO HS Vitamin C (Ascorbate Calcium) 500 Mg Tablet 500 Mg PO DAILY Vitamin B Complex 1 Each Tablet 1 Each PO DAILY Vitamin E 1,000 Unit Capsule 1,000 Unit PO DAILY [Cramp Defense] 4 Ea PO HS Clonidine HCl 0.1 Mg Tablet 0.1 Mg PO BID PRN Lab results: Laboratory Tests Test 11/22/21 04:36 Range/Units White Blood Count 5.0 4.3-11.0 10^3/uL Red Blood Count 3.92 3.80-5.11 10^6/uL Hemoglobin 12.4 11.5-16.0 g/dL Hematocrit 38 35-52 % Mean Corpuscular Volume 96 80-99 fL Mean Corpuscular Hemoglobin 32 25-34 pg Mean Corpuscular Hemoglobin Concent 33 32-36 g/dL Red Cell Distribution Width 14.9 H 10.0-14.5 % Platelet Count 289 130-400 10^3/uL Mean Platelet Volume 8.9 L 9.0-12.2 fL Immature Granulocyte % (Auto) 0 % Neutrophils (%) (Auto) 54 42-75 % Lymphocytes (%) (Auto) 28 12-44 % Monocytes (%) (Auto) 12 0-12 % Eosinophils (%) (Auto) 5 0-10 % Basophils (%) (Auto) 1 0-10 % Neutrophils # (Auto) 2.7 1.8-7.8 10^3/uL Lymphocytes # (Auto) 1.4 1.0-4.0 10^3/uL Monocytes # (Auto) 0.6 0.0-1.0 10^3/uL Eosinophils # (Auto) 0.2 0.0-0.3 10^3/uL Basophils # (Auto) 0.1 0.0-0.1 10^3/uL Immature Granulocyte # (Auto) 0.0 0.0-0.1 10^3/uL Neutrophils % (Manual) 51 % Lymphocytes % (Manual) 32 % Monocytes % (Manual) 10 % Eosinophils % (Manual) 6 % Basophils % (Manual) 1 % Microcytosis SLIGHT Sodium Level 141 135-145 MMOL/L Potassium Level 4.3 3.6-5.0 MMOL/L Chloride Level 108 H 98-107 MMOL/L Carbon Dioxide Level 21 21-32 MMOL/L Anion Gap 12 5-14 MMOL/L Blood Urea Nitrogen 22 H 7-18 MG/DL Creatinine 0.95 0.60-1.30 MG/DL Estimat Glomerular Filtration Rate 58 BUN/Creatinine Ratio 23 Glucose Level 88 70-105 MG/DL Calcium Level 9.2 8.5-10.1 MG/DL Corrected Calcium 9.8 8.5-10.1 MG/DL Phosphorus Level 2.8 2.3-4.7 MG/DL Magnesium Level 2.2 1.6-2.4 MG/DL Total Bilirubin 0.5 0.1-1.0 MG/DL Aspartate Amino Transf (AST/SGOT) 23 5-34 U/L Alanine Aminotransferase (ALT/SGPT) 21 0-55 U/L Alkaline Phosphatase 69 40-136 U/L Total Protein 5.8 L 6.4-8.2 GM/DL Albumin 3.3 3.2-4.5 GM/DL My orders: Orders - TELMA VARGAS MD Attending Discharge Inpt/Inobs (11/22/21 17:00) TLEMA VARGAS MD Nov 22, 2021 17:03
--- NOTE | 2021-11-22 17:03 | Discharge Summary ---
Diagnosis/Chief Complaint Date of Admission Nov 20, 2021 at 09:40 Date of Discharge Discharge Date: Nov 22, 2021 Discharge Time: 1730 Discharge Summary Discharge Physical Examination Allergies: Coded Allergies: sulfamethoxazole (Verified Allergy, Unknown, 01/11/19) trimethoprim (Verified Allergy, Unknown, 01/11/19) Uncoded Allergies: SULFA (Allergy, Mild, HIVES, 04/21/10) Vitals & I&Os Vital Signs Date Time Temp Pulse Resp B/P (MAP) Pulse Ox O2 Delivery O2 Flow Rate FiO2 11/22/21 16:00 94 Room Air 11/22/21 15:00 65 17 136/66 (89) 11/22/21 12:00 36.2 11/21/21 04:00 21.00 11/21/21 04:00 21 Discharge Instructions to patient/family Please see electronic discharge instructions given to patient. Discharge Medications Reviewed and agree with Discharge Medication list on patient's Discharge Instruction sheet Clinical Quality Measures AMI/AHF: ASA po Prior to arrival: TELMA Martinez MD Nov 22, 2021 17:03
== END 2021-11-22 19:30 | disposition home or self-care (01) ==
LOC: EDUNIT# 06:43 → ER 06:45 → ICU 09:40
PROVIDERS: ADMIT Family Medicine; ATTEND Family Medicine
DX: I16.1 Hypertensive emergency (principal); R42 Dizziness and giddiness; Z79.899 Other long term (current) drug therapy
CPT/HCPCS: 70450; 71045; 80053 ×3; 80061; 83735 ×3; 83874; 83880; 84100 ×2; 84443; 84484; 85007 ×2; 85025; 85027 ×2; 85610; 85730; 87081; 93005; 93041; 96374; 99285; G0378; 36415

== ENCOUNTER → 2022-05-10 | Outpatient (CLI) | payer MEDICARE, OTHER ==
[~2022-05-10] MED LIST changes: +ASCO-262 PO; +CALC-823 PO; +CRAMP DEFENSE PO; +MECL-149 PO; +NAPR-1033 PO; +POTA2TAB5 PO; +VITA100049 PO; +VITA1TAB17 PO; +VITA40TA PO
--- NOTE | 2022-05-10 16:26 | Diagnostic Imaging Report ---
INDICATION: Routine screening. Comparison is made with prior mammogram of 12/01/2013. 2-D and 3-D bilateral screening mammography was performed CAD. Scattered fibroglandular densities are identified bilaterally. Scattered benign parenchymal and vascular calcifications are noted bilaterally. No mass or malignant-appearing microcalcifications are seen. Chest wall port hub overlies the left axilla. IMPRESSION: No mammographic features suspicious for malignancy are identified. ACR BI-RADS Category 2: Benign findings. Result letter will be mailed to the patient. Note: At least 10% of breast cancer is not imaged by mammography. BI-RADS Category 2 Dictated by: Dictated on workstation # [id number]
--- NOTE | 2022-05-10 18:08 | Diagnostic Imaging Report ---
INDICATION: Postmenopausal state, screening for osteoporosis COMPARISON: None available FINDINGS: AP Spine L1-L4: [BMD (g/cm2): 1.033] [T-Score: -1.4] [Z-Score: -0.3] [BMD Previous: na] [BMD % Change: na] LT Hip Neck: [BMD (g/cm2): 0.727] [T-Score: -2.2] [Z-Score: -0.3] LT Hip Total: [BMD (g/cm2):0.846] [T-Score:-1.3] [Z-Score: 0.6] [BMD Previous: na] [BMD % Change: na] RT Hip Neck: [BMD (g/cm2):0.825] [T-Score:-1.5] [Z-Score:0.5] RT Hip Total: [BMD (g/cm2):0.856] [T-score:-1.2] [Z-Score:0.7] [BMD Previous:na] [BMD % Change:na] *Indicates significant change from prior examination based on 95% confidence level. World Health Organization criteria for BMD interpretation classify patients as Normal (T-score at or above -1.0), Osteopenic (T-score between -1.0 and -2.5) or Osteoporotic (T-score at or below -2.5). LIMITATIONS AND MODIFICATION: None. FRACTURE RISK (FRAX SCORE): The ten year probability of (%): Major Osteoporotic Fracture: [13.9] Hip Fracture: [4.6] IMPRESSION: 1. Osteopenia (Low bone mass). 2. Baseline examination. 3. See below National Osteoporosis Foundation guidelines on when to potentially initiate pharmacologic therapy. Based on the National Osteoporosis Foundation Guidelines, pharmacologic treatment should be initiated in any of the following, unless clinical conditions suggest otherwise: * Any patient with prior fragility fracture of the hip or vertebrae. A spine fracture indicates 5X risk for subsequent spine fracture and 2X risk for subsequent hip fracture. * Osteoporosis (T-score <-2.5). * Postmenopausal women and men age 50 and older with low bone mass/osteopenia (T-score between -1.0 and -2.5) by DXA and 10-year major osteoporotic fracture greater than 20% or a 10-year probability of hip fracture greater than 3%. These fracture risks are supplied above in the FRAX score, if applicable. * Clinician judgement and/or patient preferences may indicate treatment for people with 10-year fracture probabilities above or below these levels. Dictated by: Dictated on workstation # [id number]
== END ==
LOC: RAD 13:30
PROVIDERS: ATTEND Nurse Practitioner Family
DX: Z12.31 Encounter for screening mammogram for malignant neoplasm of breast (principal); Z13.820 Encounter for screening for osteoporosis; M85.80 Other specified disorders of bone density and structure, unspecified site; Z78.0 Asymptomatic menopausal state
CPT/HCPCS: 77063; 77067; 77080

== ENCOUNTER → 2022-11-10 | Outpatient (CLI) | payer MEDICARE, OTHER ==
--- NOTE | 2022-11-11 09:05 | Diagnostic Imaging Report ---
Exam: Ultrasound thyroid. Date: November 10, 2022. Comparison: Thyroid ultrasound January 18, 2021. Indication: 87-year-old female, goiter. Findings: Two-dimensional grayscale and color Doppler images were obtained of the thyroid. Right lobe of the thyroid: The right lobe of the thyroid has uniform echotexture. There are no solid or cystic parenchymal distorting masses of the right thyroid. The right lobe of the thyroid measures 4.6 x 1.6 x 1.6 cm. Left lobe of the thyroid: The left lobe of the thyroid has uniform echotexture. There are no solid or cystic parenchymal distorting masses of the left thyroid. The left lobe of the thyroid measures 5.3 x 2.2 x 1.8 cm. Isthmus: The thyroid isthmus is unremarkable. The isthmus measures 0.3 cm. Impression: 1. Unremarkable ultrasound of the thyroid. Dictated by: Dictated on workstation # [id number]
== END ==
LOC: RAD 14:35
PROVIDERS: ATTEND Nurse Practitioner
DX: E04.1 Nontoxic single thyroid nodule (principal); C83.30 Diffuse large B-cell lymphoma, unspecified site
CPT/HCPCS: 76536

== ENCOUNTER 2023-01-22 16:59 | Observation (INO) | payer MEDICARE, OTHER ==
[~2023-01-22] VITALS: Ht 155 cm; Wt 92.2 kg
[2023-01-22] MEDS ORDERED: NITROGLYCERIN 2% OINT 1 GM UNIT DOSE PACKET TOP ONE (17:15)
--- NOTE | 2023-01-22 17:15 | ED General ---
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 Source of Information: Patient Exam Limitations: No Limitations History of Present Illness Date Seen by Provider: Jan 22, 2023 Time Seen by Provider: 17:02 Initial Comments This 87-year-old woman presents to the emergency room with complaints of vomiting and severe hypertension. She has a history of hypertensive exacerbations for which she takes clonidine. However, she began vomiting around 1600 today and could not keep down her clonidine tablet. She presents via EMS with systolic blood pressure in excess of 230. She has been taking prednisone for over a week to treat poison kassi. This may have caused stomach upset and may have exacerbated hypertension. EMS administered Zofran 8 mg as well as metoprolol 5 mg. Her heart rate slowed but it did not improve her blood pressure much. Patient denies any pain or neurologic deficits. She seems somnolent but is alert and oriented. She reports being compliant with her medications. Allergies and Home Medications Allergies Coded Allergies: sulfamethoxazole (Verified Allergy, Unknown, 01/11/19) trimethoprim (Verified Allergy, Unknown, 01/11/19) Uncoded Allergies: SULFA (Allergy, Mild, HIVES, 04/21/10) Patient Home Medication List Home Medication List Reviewed: Yes Ascorbate Calcium (Vitamin C) 500 Mg Tablet, 500 MG PO DAILY, (Reported) Entered as Reported by: MARCELO LANTIGUA on 11/22/21 0959 Last Action: Reviewed Cholecalciferol (Vitamin D3) (Vitamin D3) 50 Mcg (2000 Unit) Tablet, 50 MCG PO DAILY, (Reported) Entered as Reported by: MARCELO LANTIGUA on 01/23/23 09 Last Action: Reviewed Clonidine HCl (Clonidine HCl) 0.1 Mg Tablet, 0.1 MG PO Q6H PRN for SBP > 160 Prescribed by: LESLIE CONROY on 01/23/23 1049 Cod Liver Oil (Cod Liver Oil) 1 Each Capsule, 1 EACH PO DAILY, (Reported) Entered as Reported by: MARCELO LANTIGUA on 01/23/23940 Last Action: Reviewed Cyanocobalamin (Vitamin B-12) (Vitamin B-12) 1,000 Mcg Tablet, 1,000 MCG PO DAILY, (Reported) Entered as Reported by: MARCELO LANTIGUA on 01/23/23940 Last Action: Reviewed Irbesartan (Irbesartan) 150 Mg Tablet, 150 MG PO DAILY, (Reported) Entered as Reported by: MARCELO LANTIGUA on 01/23/23940 Last Action: Reviewed Magnesium Oxide (Magnesium) 400 Mg Magnesium Tablet, 400 MG PO HS, (Reported) Entered as Reported by: MARCELO LANTIGUA on 01/23/23940 Last Action: Reviewed Vitamin A Palmitate (Vitamin A) 3,000 Mcg (68929 Unit) Capsule, 3,000 MCG PO DA JEFF, (Reported) Entered as Reported by: MARCELO LANTIGUA on 01/23/23940 Last Action: Reviewed Vitamin E Mixed (Vitamin E) 400 Unit Tablet, 400 UNIT PO DAILY, (Reported) Entered as Reported by: MARCELO LANTIGUA on 01/23/23940 Last Action: Reviewed [Cardio Plus] , 2 EA PO DAILY, (Reported) Entered as Reported by: MARCELO LANTIGUA on 01/23/23940 Last Action: Reviewed [Digestive Aid] POWD, 1 EA PO DAILY, (Reported) Entered as Reported by: MARCELO LANTIGUA on 01/23/23940 Last Action: Reviewed Discontinued Medications Calcium Carbonate (Calcium) 500 Mg Tablet, 500 MG PO HS, (Reported) Discontinued Reason: No Longer Taking Entered as Reported by: MARCELO LANTIGUA on 11/22/21958 Last Action: Discontinued Clonidine HCl (Clonidine HCl) 0.1 Mg Tablet, 0.1 MG PO BID PRN for BLOOD PRESSURE, (Reported) Discontinued Reason: No Longer Taking Entered as Reported by: MARCELO LANTIGUA on 11/22/21958 Last Action: Discontinued Lisinopril (Lisinopril) 20 Mg Tablet, 20 MG PO DAILY Discontinued Reason: No Longer Taking Prescribed by: TELMA VARGAS on 11/22/211700 Last Action: Discontinued Meclizine HCl (Meclizine HCl) 25 Mg Tablet, 12.5 MG PO Q6H PRN for DIZZINESS Discontinued Reason: No Longer Taking Prescribed by: TELAM VARGAS on 11/22/211700 Last Action: Discontinued Naproxen Sodium (Naproxen Sodium) 220 Mg Tablet, 220 MG PO TID PRN for PAIN-MILD (1-4), (Reported) Discontinued Reason: No Longer Taking Entered as Reported by: MARCELO LANTIGUA on 11/22/21958 Last Action: Discontinued Potassium Gluconate (Potassium Gluconate) 90 Mg Tablet, 90 MG PO HS, (Reported) Discontinued Reason: No Longer Taking Entered as Reported by: MARCELO LANTIGUA on 11/22/21958 Last Action: Discontinued Vitamin B Complex (Vitamin B Complex) 1 Each Tablet, 1 EACH PO DAILY, (Reported) Discontinued Reason: No Longer Taking Entered as Reported by: MARCELO LANTIGUA on 11/22/21958 Last Action: Discontinued Vitamin E (Vitamin E) 1,000 Unit Capsule, 1,000 UNIT PO DAILY, (Reported) Discontinued Reason: No Longer Taking Entered as Reported by: MARCELO LANTIGUA on 11/22/21958 Last Action: Discontinued Vitamin K2 (Vitamin K2) 40 Mcg Tablet, 40 MCG PO HS, (Reported) Discontinued Reason: No Longer Taking Entered as Reported by: MARCELO LANTIGUA on 11/22/21958 Last Action: Discontinued [Cramp Defense] , 4 EA PO HS, (Reported) Discontinued Reason: No Longer Taking Entered as Reported by: MARCELO LANTIGUA on 11/22/21958 Last Action: Discontinued Review of Systems Review of Systems Constitutional: no symptoms reported EENTM: no symptoms reported Respiratory: no symptoms reported Cardiovascular: see HPI Gastrointestinal: see HPI Genitourinary: no symptoms reported : No Musculoskeletal: no symptoms reported Skin: no symptoms reported Psychiatric/Neurological: No Symptoms Reported Hematologic/Lymphatic: No Symptoms Reported Immunological/Allergic: no symptoms reported Past Gcpnhvn-Bxbhty-Bvdqor Hx Patient Social History Tobacco Use?: No Substance use?: No Alcohol Use?: No Immunizations Up To Date PED Vaccines UTD: No Seasonal Allergies Seasonal Allergies: No Past Medical History Surgery/Hospitalization HX: HTN, HX OF LYMPHOMA Surgeries: Yes Eye Surgery Respiratory: Yes Sleep Apnea Currently Using CPAP: No Currently Using BIPAP: No Cardiac: Yes 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 (Labile with episodes of accelerated hypertension), Palpitations Neurological: No 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 Disorders: No Female 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 Disorders: Denies 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 Sexually Transmitted Disease: No HIV/AIDS: No Gastrointestinal: No Musculoskeletal: Yes Arthritis Endocrine: No Loss of Vision: Denies Hearing Impairment: Denies Cancer: Yes Lymphoma Psychosocial: No Blood Disorders: No Adverse Reaction/Blood Tranf: No (PT REFUSES TO TAKE BLOOD PRODUCTS DUE TO ANGLICAN) Family Medical History No Pertinent Family Hx, 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 Physical Exam Vital Signs Vital Signs - First Documented 01/22/23 01/22/23 17:02 19:30 Temp 36.4 Pulse 56 Resp 18 B/P (MAP) 232/105 (147) Pulse Ox 97 O2 Delivery Room Air O2 Flow Rate 2.00 Capillary Refill : Less Than 3 Seconds Height, Weight, BMI Height: 5'6.00" Weight: 190lbs. 0.0oz. 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 as Tested, Other (somnolent) Skin: Normal Color, Warm/Dry Progress/Results/Core Measures Suspected Sepsis SIRS Temperature: Pulse: 56 Respiratory Rate: 18 Laboratory Tests 01/22/23 17:06: White Blood Count 10.6 Blood Pressure 232 /105 Mean: 147 Laboratory Tests 01/22/23 17:06: Creatinine 1.19, Platelet Count 295, Total Bilirubin 0.5 Results/Orders Lab Results Laboratory Tests Test 01/22/23 17:06 Range/Units White Blood Count 10.6 4.3-11.0 10^3/uL Red Blood Count 4.65 3.80-5.11 10^6/uL Hemoglobin 14.5 11.5-16.0 g/dL Hematocrit 43 35-52 % Mean Corpuscular Volume 93 80-99 fL Mean Corpuscular Hemoglobin 31 25-34 pg Mean Corpuscular Hemoglobin Concent 34 32-36 g/dL Red Cell Distribution Width 15.7 H 10.0-14.5 % Platelet Count 295 130-400 10^3/uL Mean Platelet Volume 8.9 L 9.0-12.2 fL Immature Granulocyte % (Auto) 1 % Neutrophils (%) (Auto) 61 42-75 % Lymphocytes (%) (Auto) 34 12-44 % Monocytes (%) (Auto) 4 0-12 % Eosinophils (%) (Auto) 1 0-10 % Basophils (%) (Auto) 0 0-10 % Neutrophils # (Auto) 6.4 1.8-7.8 10^3/uL Lymphocytes # (Auto) 3.5 1.0-4.0 10^3/uL Monocytes # (Auto) 0.5 0.0-1.0 10^3/uL Eosinophils # (Auto) 0.1 0.0-0.3 10^3/uL Basophils # (Auto) 0.0 0.0-0.1 10^3/uL Immature Granulocyte # (Auto) 0.1 0.0-0.1 10^3/uL Sodium Level 137 135-145 MMOL/L Potassium Level 4.2 3.6-5.0 MMOL/L Chloride Level 105 98-107 MMOL/L Carbon Dioxide Level 20 L 21-32 MMOL/L Anion Gap 12 5-14 MMOL/L Blood Urea Nitrogen 23 H 7-18 MG/DL Creatinine 1.19 0.60-1.30 MG/DL Estimat Glomerular Filtration Rate 44 BUN/Creatinine Ratio 19 Glucose Level 179 H 70-105 MG/DL Calcium Level 9.6 8.5-10.1 MG/DL Corrected Calcium 9.7 8.5-10.1 MG/DL Magnesium Level 2.3 1.6-2.4 MG/DL Total Bilirubin 0.5 0.1-1.0 MG/DL Aspartate Amino Transf (AST/SGOT) 25 5-34 U/L Alanine Aminotransferase (ALT/SGPT) 33 0-55 U/L Alkaline Phosphatase 67 40-136 U/L B-Type Natriuretic Peptide 72.8 <100.0 PG/ML Total Protein 7.1 6.4-8.2 GM/DL Albumin 3.9 3.2-4.5 GM/DL TSH [facility] Testing 2.09 0.35-4.94 UIU/ML My Orders Orders - ELIANE MCDONOUGH MD Nitroglycerin Ointment (Nitrobid Ointme (01/22/23 17:15) Bnp Andrey (01/22/23 17:12) Cbc With Automated Diff (01/22/23 17:12) Comprehensive Metabolic Panel (01/22/23 17:12) Magnesium (01/22/23 17:12) Thyroid Analyzer (01/22/23 17:12) Ed Iv/Invasive Line Start (01/22/23 17:12) Ekg Tracing (01/22/23 17:12) Monitor-Rhythm Ecg Trace Only (01/22/23 17:12) Chest 1 View, Ap/Pa Only (01/22/23 17:16) Clonidine Tablet (Catapres Tablet) (01/22/23 18:15) Promethazine Injection (Phenergan Injec (01/22/23 18:15) Ct Head Wo-R/O Stroke (01/22/23 18:12) Ed Admission (Communication) (01/22/23 19:10) Code/Resuscitation (01/22/23 19:12) Nursing Communication (Order) (01/22/23 19:12) Medications Given in ED Vital Signs/I&O 01/22/23 01/22/23 17:02 19:30 Temp 36.4 37.0 Pulse 56 71 Resp 18 15 B/P (MAP) 232/105 (147) 231/104 Pulse Ox 97 O2 Delivery Room Air Nasal Cannula O2 Flow Rate 2.00 Capillary Refill : Less Than 3 Seconds Blood Pressure Mean: 147 Progress Note : Progress Note Patient was interviewed and examined upon arrival. Labs were obtained, reviewed, and interpreted by me including CBC, CMP, magnesium, thyroid analyzer, and BNP. These labs were all grossly unremarkable. EKG demonstrated no significant changes by my interpretation. Nitropaste was applied with only slight improvement of her blood pressure into the 220 systolic range. Patient had rebound nausea and vomiting. She also developed slight headache. CT of the head was obtained to rule out any intracranial hemorrhage associated with this accelerated hypertension. CT was reviewed by me and I appreciated no acute hemorrhages. I also discussed CT findings with the radiologist and reviewed radiologist's interpretation. I consulted Dr. Howard, laser technician on-call. He recommended administering a dose of clonidine when nausea was controlled. Nausea and vomiting resolved after receiving Phenergan 12.5 mg IV. Patient was able to take and retain the clonidine. Patient was ultimately admitted to the ICU. Patient experienced mild hypoxia during her ER stay and was supplied with nasal cannula at 2 L/min. She did not have any hypoxia in route for EMS. Hypoxia was thought to be related to medications including Lopressor and Phenergan. I discussed the case with Dr. Conroy, admitting hospitalist. I gave report to eICU. I discussed CODE STATUS with the patient and her family. She does not want to receive any CPR but would permit short-term intubation if necessary. She does not want to receive any blood products due to her methodist of a Restorationism. ECG Initial ECG Impression Date: Jan 22, 2023 Initial ECG Impression Time: 17:32 Initial ECG Rate: 58 Initial ECG Rhythm: Normal Sinus Comment Sinus rhythm with no ST elevation or depression. Borderline LVH. No abnormal intervals. Diagnostic Imaging Diagonstic Imaging: Xray Plain Films/CT/US/NM/MRI: chest Comments NAME: JAMES BARRIENTOS [facility] REC#: [id number] PT STATUS: ADM Shivani : 1935 PHYSICIAN: ELIANE MCDONOUGH MD ADMIT DATE: 01/22/23/ICU Signed Date of Exam:01/22/23 CHEST 1 VIEW, AP/PA ONLY CLINICAL INDICATION: Patient with hypoxia, high blood pressure and nausea. EXAM: Portable chest x-ray upright view. COMPARISON: Portable chest x-ray dated 11/20/2021. FINDINGS: Again seen [id number] overlying left chest with stable position. Lungs/pleura: Lungs are clear. There is no pneumothorax. There is no pleural effusion. Mediastinum: Unremarkable. Pulmonary vasculature: Unremarkable. Heart: There is upper limits of normal heart size for portable projection. Bones/extrathoracic soft tissue: Unremarkable. IMPRESSION: There is no radiographic evidence of acute cardiopulmonary process. Dictated by: Dictated on workstation # [id number] Dict: 01/22/231748 Trans: 01/22/232108 [facility] [id number] Interpreted by: OZIEL TEMPLETON MD Electronically signed by: OZIEL TEMPLETON MD 01/22/232108 Diagonstic Imaging: CT Plain Films/CT/US/NM/MRI: head Comments NAME: JAMES BARRIENTOS [facility] REC#: [id number] PT STATUS: ADM Shivani : 1935 PHYSICIAN: ELIANE MCDONOUGH MD ADMIT DATE: 01/22/23/ICU Signed Date of Exam:01/22/23 CT HEAD WO-R/O STROKE Clinical indications: Patient with neuro deficit. Patient's hypertension and vomiting. EXAM: Axial CT scan of the brain performed without IV contrast. High-resolution axial CT brain images with sagittal and coronal reformations were also created. Auto Exposure Controls were utilized during the CT exam to meet ALARA standards for radiation dose reduction. COMPARISON: Head CT without contrast dated 11/20/2021. FINDINGS: There is no evidence of acute cerebral infarct, intracranial hemorrhage, or gross mass effect. There is no dense vessel sign seen. The brain parenchymal volume appears appropriate for patient's age. Stable mild chronic small vessel ischemic disease. There is normal shine-white matter distinction. There is no significant midline shift or herniation. There is no evidence of hydrocephalus. The basal cisterns are unremarkable. The skull, extracranial soft tissue, and orbits are unremarkable. The paranasal sinuses are unremarkable. Temporal bones show no significant abnormality. IMPRESSION: Stable CT scan of the brain with no interval evidence of acute intracranial process. There is no dense vessel sign. Results of this report discussed with Dr. Mcdonough via the telephone on 01/22/2023 at 1832 hours Dictated by: Dictated on workstation # [id number] Dict: 01/22/23 1830 Trans: 01/22/232123 [facility] [id number] Interpreted by: OZIEL TEMPLETON MD Electronically signed by: OZIEL TEMPLETON MD 01/22/232123 Departure Communication (Admissions) Time/Spoke to Admitting Phy: 19:05 Dr. Conroy Impression Primary Impression: Hypertensive urgency Additional Impressions: Adverse effect of prednisone Qualified Codes: T38.0X5A - Adverse effect of glucocorticoids and synthetic analogues, initial encounter Vomiting Qualified Codes: R11.10 - Vomiting, unspecified Hypoxia Disposition: ADMITTED INPATIENT Condition: Improved Admissions Decision to Admit Reason: Admit from ER (General) Decision to Admit/Date: Jan 22, 2023 Time/Decision to Admit Time: 19:05 Departure-Patient Inst. Referrals: TELMA VARGAS MD (PCP/Family) Primary Care Physician Scripts Clonidine HCl (Clonidine HCl) 0.1 Mg Tablet 0.1 MG PO Q6H PRN for SBP > 160, #30 TAB Prov: LESLIE CONROY DO 01/23/23 Copy Copies To 1: TELMA VARGAS MD, JOSHUA T MD Jan 22, 2023 17:15
[2023-01-22 17:18] LABS: BASOPHILS % (AUTO) 0 % (0-10); EOSINOPHILS # (AUTO) 0.1 10^3/uL (0.0-0.3); EOSINOPHILS % (AUTO) 1 % (0-10); HEMATOCRIT 43 % (35-52); HEMOGLOBIN 14.5 g/dL (11.5-16.0); LYMPHOCYTES # (AUTO) 3.5 10^3/uL (1.0-4.0); LYMPHOCYTES % (AUTO) 34 % (12-44); MEAN CORPUSCULAR HEMOGLOBIN 31 pg (25-34); MEAN CORPUSCULAR HGB CONC 34 g/dL (32-36); MEAN CORPUSCULAR VOLUME 93 fL (80-99); MEAN PLATELET VOLUME 8.9 fL (9.0-12.2); MONOCYTES # (AUTO) 0.5 10^3/uL (0.0-1.0); MONOCYTES % (AUTO) 4 % (0-12); NEUTROPHILS # (AUTO) 6.4 10^3/uL (1.8-7.8); NEUTROPHILS % (AUTO) 61 % (42-75); PLATELET COUNT 295 10^3/uL (130-400); WHITE BLOOD COUNT 10.6 10^3/uL (4.3-11.0)
[2023-01-22 17:23] LABS: ALBUMIN 3.9 GM/DL (3.2-4.5); POTASSIUM 4.2 MMOL/L (3.6-5.0)
[2023-01-22 17:24] LABS: CALCIUM 9.6 MG/DL (8.5-10.1)
[2023-01-22 17:25] LABS: TOTAL PROTEIN 7.1 GM/DL (6.4-8.2)
[2023-01-22 17:27] LABS: BILIRUBIN,TOTAL 0.5 MG/DL (0.1-1.0)
[2023-01-22 17:29] LABS: CREATININE SERUM 1.19 MG/DL (0.60-1.30)
[2023-01-22 17:32] LABS: MAGNESIUM 2.3 MG/DL (1.6-2.4)
[2023-01-22 17:52] LABS: TSH (THYROID ANALYZER) 2.09 UIU/ML (0.35-4.94)
--- NOTE | 2023-01-22 17:53 | Diagnostic Imaging Report ---
CLINICAL INDICATION: Patient with hypoxia, high blood pressure and nausea. EXAM: Portable chest x-ray upright view. COMPARISON: Portable chest x-ray dated 11/20/2021. FINDINGS: Again seen [id number] overlying left chest with stable position. Lungs/pleura: Lungs are clear. There is no pneumothorax. There is no pleural effusion. Mediastinum: Unremarkable. Pulmonary vasculature: Unremarkable. Heart: There is upper limits of normal heart size for portable projection. Bones/extrathoracic soft tissue: Unremarkable. IMPRESSION: There is no radiographic evidence of acute cardiopulmonary process. Dictated by: Dictated on workstation # [id number]
[2023-01-22] MEDS ORDERED: PROMETHAZINE INJ 25 MG/ML (PHENERGAN) AMP IVP ONE (18:15)
[2023-01-22] MEDS ORDERED: cloNIDine 0.1 MG (CATAPRES) TAB PO ONE (18:15)
--- NOTE | 2023-01-22 19:25 | Diagnostic Imaging Report ---
Clinical indications: Patient with neuro deficit. Patient's hypertension and vomiting. EXAM: Axial CT scan of the brain performed without IV contrast. High-resolution axial CT brain images with sagittal and coronal reformations were also created. Auto Exposure Controls were utilized during the CT exam to meet ALARA standards for radiation dose reduction. COMPARISON: Head CT without contrast dated 11/20/2021. FINDINGS: There is no evidence of acute cerebral infarct, intracranial hemorrhage, or gross mass effect. There is no dense vessel sign seen. The brain parenchymal volume appears appropriate for patient's age. Stable mild chronic small vessel ischemic disease. There is normal shine-white matter distinction. There is no significant midline shift or herniation. There is no evidence of hydrocephalus. The basal cisterns are unremarkable. The skull, extracranial soft tissue, and orbits are unremarkable. The paranasal sinuses are unremarkable. Temporal bones show no significant abnormality. IMPRESSION: Stable CT scan of the brain with no interval evidence of acute intracranial process. There is no dense vessel sign. Results of this report discussed with Dr. Mcdonough via the telephone on 01/22/2023 at 1832 hours Dictated by: Dictated on workstation # [id number]
[2023-01-22] MEDS ORDERED: ONDANSETRON 4 MG/2 ML (SDV) Z0FRAN IV PRN (20:00)
[2023-01-22] MEDS ORDERED: diphenhydrAMINE 50 MG/ML INJ (BENADRYL) IVP PRN (20:00)
[2023-01-22] MEDS ORDERED: LACTULOSE SYRUP 10GM/15ML (ENULOSE) 30ML UDC PO PRN (20:00)
[2023-01-22] MEDS ORDERED: polyethylene glycoL POWDER 17 GM (MIRALAX) PACK PO PRN (20:00)
[2023-01-22] MEDS ORDERED: MILK OF MAGNESIA 400 MG/5 ML 30 ML UDC PO PRN (20:00)
[2023-01-22] MEDS ORDERED: NITROGLYCERIN 2% OINT 1 GM UNIT DOSE PACKET TOP PRN (20:00)
[2023-01-22] MEDS ORDERED: ACETAMINOPHEN 325 MG TABLET PO PRN (20:00)
[2023-01-22] MEDS ORDERED: morphine INJ 4 MG/ML 1 ML (VIAL/SYRINGE) IV PRN (20:00)
[2023-01-22] MEDS ORDERED: diphenhydrAMINE 25 MG TAB (BENADRYL) PO PRN (20:00)
[2023-01-22] MEDS ORDERED: MELATONIN 3 MG TABLET PO PRN (20:00)
[2023-01-22] MEDS ORDERED: METOCLOPRAMIDE INJ 10 MG/2 ML (REGLAN) IVP PRN (20:00)
[2023-01-22] MEDS ORDERED: ONDANSETRON 4 MG (ZOFRAN) ORAL DISSOLVE TAB PO PRN (20:00)
[2023-01-22] MEDS ORDERED: NS IV 1000 ML 1,000 ML IV SCH (20:00)
[2023-01-22] MEDS ORDERED: hydrALAZINE (APESOLINE) 20 MG/ML VIAL IV SCH (20:00)
[2023-01-22] MEDS ORDERED: ANTACID SUSP 30 ML UDC (MYLANTA) PO PRN (20:00)
[2023-01-22] MEDS ORDERED: BISACODYL 10 MG SUPP (DULCOLAX) PR PRN (20:00)
[2023-01-22] MEDS ORDERED: CALCIUM CARBONATE 500 MG (TUMS) TAB.CHEW PO PRN (20:00)
[2023-01-22] MEDS ORDERED: PROMETHAZINE INJ 25 MG/ML (PHENERGAN) AMP IM PRN (20:00)
[2023-01-22] MEDS ORDERED: NS IV 500 ML 500 ML IV PRN (20:00)
[2023-01-22] MEDS ORDERED: cloNIDine 0.1 MG (CATAPRES) TAB PO PRN (20:00)
[2023-01-22] MEDS ORDERED: hydrALAZINE (APESOLINE) 20 MG/ML VIAL IV PRN (20:15)
[2023-01-22] MEDS: SENNOSIDES 8.6 MG (SENOKOT) TAB PO SCH (20:46)
[2023-01-22] MEDS: DOCUSATE SODIUM 100 MG (COLACE) CAP PO SCH (20:46)
--- NOTE | 2023-01-22 20:54 | Tele-ICU Progress Note ---
Progress Note 87F with HTN being admitted for hypertensive urgency. Presented with abrupt onset nausea and vomiting around 1600 today. Endorses about 100 episodes. She did not examine to vomit, but believes she overheard someone say it looked blood tinged. She has persistent nausea currently. She has had similar episodes of nausea previously when she had severe BP elevations. Today she esd 237/115 on arrival to ED. She was given a dose of clonidine and nitro paste. On arrival to ICU BP was 215/100, now back up to 232/108. Of note, has been on steroids for posion ria for the past week. A/P - hypertensive urgency: review of the chart shows chronic hypertension, typically in the 150-180 range. Unknown what she has been running the last couple of days. Will have goal correction of 25% - SBP 170-190. Will reassess at goal. If symptoms are not relieved with further correct to 150-180. In AM can change goal to 140-170. Will stop nitro which will have tachyphylaxis and stop clonidine due to risks of rebound hypertension. Will give PRN hydralazine now. Give IV enalapril x1. Avoid beta blockers with HR already low 50s. If not at goal, start nicaripine gtt. - nausea/vomiting: patient endorses similar symptoms with similar BP elevations before. Remains symptomatic, but BP not much improved. Will reassess after improved BP. If not improved, will initiate GI work up. Will send gastric contents for occult blood, but suspicion for GIB is low. Patient assessed via real time audiovisual communication device CCT 15min Focused Exam Height, Weight, BMI Height: 5'6.00" Weight: 190lbs. 0.0oz. 86.375882uc; 37.00 BMI Method:Stated DEXTER RODRIGUEZ MD Jan 22, 2023 20:54
[2023-01-22] MEDS ORDERED: ENOXAPARIN 40 MG/0.4 ML (LOVENOX) SYR SC SCH (21:00)
[2023-01-22] MEDS ORDERED: ENALAPRILAT 2.5 MG/2 ML (VASOTEC) VIAL IV ONE (21:00)
[2023-01-22 22:08] VITALS: BP 171/83
[2023-01-22] MEDS: niCARdipine IV 50 MG in NS (IVPB) 230 ML IV SCH (23:39)
[2023-01-23 05:20] LABS: BASOPHILS % (AUTO) 0 % (0-10); EOSINOPHILS % (AUTO) 0 % (0-10); HEMATOCRIT 40 % (35-52); HEMOGLOBIN 13.4 g/dL (11.5-16.0); LYMPHOCYTES % (AUTO) 24 % (12-44); MEAN CORPUSCULAR HEMOGLOBIN 31 pg (25-34); MEAN CORPUSCULAR HGB CONC 34 g/dL (32-36); MEAN CORPUSCULAR VOLUME 92 fL (80-99); MEAN PLATELET VOLUME 9.5 fL (9.0-12.2); MONOCYTES # (AUTO) 0.7 10^3/uL (0.0-1.0); MONOCYTES % (AUTO) 8 % (0-12); NEUTROPHILS # (AUTO) 5.5 10^3/uL (1.8-7.8); NEUTROPHILS % (AUTO) 66 % (42-75); PLATELET COUNT 268 10^3/uL (130-400); WHITE BLOOD COUNT 8.3 10^3/uL (4.3-11.0)
[2023-01-23 05:36] LABS: ALBUMIN 3.2 GM/DL (3.2-4.5); BILIRUBIN,TOTAL 0.4 MG/DL (0.1-1.0); CALCIUM 8.6 MG/DL (8.5-10.1); MAGNESIUM 2.2 MG/DL (1.6-2.4); PHOSPHORUS 3.5 MG/DL (2.3-4.7); POTASSIUM 4.3 MMOL/L (3.6-5.0); TOTAL PROTEIN 5.7 GM/DL (6.4-8.2)
[2023-01-23] MEDS: niCARdipine IV 50 MG in NS (IVPB) 230 ML IV SCH (05:53)
--- NOTE | 2023-01-23 05:55 | Short Stay Summary ---
History of Present Illness History of Present Illness Reason for visit/HPI CC: HTN Urgency HPI: This is an 87yoWF clinic patient of Dr Abdalla who has a h/o HTN who presented to the ER with refractory N/V and severely elevated BP. Patient is currently improved. BP is stable at this current time. ECHO ordered by Dr Howard and Dr Howard provided cardiac evaluation. She is walking well and will go home. Date of Admission Jan 22, 2023 at 19:33 Date of Discharge 01/23/23 Time Seen by Provider: 09:30 Attending Physician Telma Abdalla MD Admitting Physician Admitting Physician: Gabriela Conroy DO Attending Physician: Gabriela Conroy DO Consult Allergies and Home Medications Allergies Coded Allergies: sulfamethoxazole (Verified Allergy, Unknown, 01/11/19) trimethoprim (Verified Allergy, Unknown, 01/11/19) Uncoded Allergies: SULFA (Allergy, Mild, HIVES, 04/21/10) Patient Home Medication List Home Medication List Reviewed: Yes Ascorbate Calcium (Vitamin C) 500 Mg Tablet, 500 MG PO DAILY, (Reported) Entered as Reported by: MARCELO LANTIGUA on 11/22/2159 Last Action: Reviewed Cholecalciferol (Vitamin D3) (Vitamin D3) 50 Mcg (2000 Unit) Tablet, 50 MCG PO DAILY, (Reported) Entered as Reported by: MARCELO LANTIGUA on 01/23/23940 Last Action: Reviewed Clonidine HCl (Clonidine HCl) 0.1 Mg Tablet, 0.1 MG PO Q6H PRN for SBP > 160 Prescribed by: GABRIELA CONROY on 01/23/23 1049 Cod Liver Oil (Cod Liver Oil) 1 Each Capsule, 1 EACH PO DAILY, (Reported) Entered as Reported by: MARCELO LANTIGUA on 01/23/23940 Last Action: Reviewed Cyanocobalamin (Vitamin B-12) (Vitamin B-12) 1,000 Mcg Tablet, 1,000 MCG PO DAILY, (Reported) Entered as Reported by: MARCELO LANTIGUA on 01/23/23940 Last Action: Reviewed Irbesartan (Irbesartan) 150 Mg Tablet, 150 MG PO DAILY, (Reported) Entered as Reported by: MARCELO LANTIGUA on 01/23/23940 Last Action: Reviewed Magnesium Oxide (Magnesium) 400 Mg Magnesium Tablet, 400 MG PO HS, (Reported) Entered as Reported by: MARCELO LANTIGUA on 01/23/23940 Last Action: Reviewed Vitamin A Palmitate (Vitamin A) 3,000 Mcg (12107 Unit) Capsule, 3,000 MCG PO DAILY, (Reported) Entered as Reported by: MARCELO LANTIGUA on 01/23/23940 Last Action: Reviewed Vitamin E Mixed (Vitamin E) 400 Unit Tablet, 400 UNIT PO DAILY, (Reported) Entered as Reported by: MARCELO LANTIGUA on 01/23/23940 Last Action: Reviewed [Cardio Plus] , 2 EA PO DAILY, (Reported) Entered as Reported by: MARCELO LANTIGUA on 01/23/23940 Last Action: Reviewed [Digestive Aid] POWD, 1 EA PO DAILY, (Reported) Entered as Reported by: MARCELO LANTIGUA on 01/23/23940 Last Action: Reviewed Discontinued Medications Calcium Carbonate (Calcium) 500 Mg Tablet, 500 MG PO HS, (Reported) Discontinued Reason: No Longer Taking Entered as Reported by: MARCELO LANTIGUA on 11/22/21958 Last Action: Discontinued Clonidine HCl (Clonidine HCl) 0.1 Mg Tablet, 0.1 MG PO BID PRN for BLOOD PRESSURE, (Reported) Discontinued Reason: No Longer Taking Entered as Reported by: MARCELO LANTIGUA on 11/22/21958 Last Action: Discontinued Lisinopril (Lisinopril) 20 Mg Tablet, 20 MG PO DAILY Discontinued Reason: No Longer Taking Prescribed by: TELMA ABDALLA on 11/22/211700 Last Action: Discontinued Meclizine HCl (Meclizine HCl) 25 Mg Tablet, 12.5 MG PO Q6H PRN for DIZZINESS Discontinued Reason: No Longer Taking Prescribed by: TELMA ABDALLA on 11/22/211700 Last Action: Discontinued Naproxen Sodium (Naproxen Sodium) 220 Mg Tablet, 220 MG PO TID PRN for PAIN-MILD (1-4), (Reported) Discontinued Reason: No Longer Taking Entered as Reported by: MARCELO LANTIGUA on 11/22/21958 Last Action: Discontinued Potassium Gluconate (Potassium Gluconate) 90 Mg Tablet, 90 MG PO HS, (Reported) Discontinued Reason: No Longer Taking Entered as Reported by: MACRELO LANTIGUA on 11/22/21958 Last Action: Discontinued Vitamin B Complex (Vitamin B Complex) 1 Each Tablet, 1 EACH PO DAILY, (Reported) Discontinued Reason: No Longer Taking Entered as Reported by: MARCELO LANTIGUA on 11/22/21958 Last Action: Discontinued Vitamin E (Vitamin E) 1,000 Unit Capsule, 1,000 UNIT PO DAILY, (Reported) Discontinued Reason: No Longer Taking Entered as Reported by: MARCELO LANTIGUA on 11/22/21958 Last Action: Discontinued Vitamin K2 (Vitamin K2) 40 Mcg Tablet, 40 MCG PO HS, (Reported) Discontinued Reason: No Longer Taking Entered as Reported by: MARCELO LANTIGUA on 11/22/21958 Last Action: Discontinued [Cramp Defense] , 4 EA PO HS, (Reported) Discontinued Reason: No Longer Taking Entered as Reported by: MARCELO LANTIGUA on 11/22/21958 Last Action: Discontinued Past Cqwnykm-Dsrgce-Oydvtc Hx Patient Social History Marrital Status: single Employed/Student: retired Smoking Status: Never a Smoker 2nd Hand Smoke Exposure: No Recent Hopitalizations: No Alcohol Use?: No Pt feels they are or have been: No Immunizations Up To Date Pediatric: No Seasonal Allergies Seasonal Allergies: No Surgeries Yes Eye Surgery Respiratory Yes Currently Using CPAP: No Currently Using BIPAP: No Cardiovascular Yes 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, Palpitations Neurological No 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 System Hx 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 Disorders: No Sexually Transmitted Disease: No HIV/AIDS: No Female 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 Disorders: Denies 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 Gastrointestinal No Musculoskeletal Yes Arthritis Endocrine History of Endocrine Disorders: No HEENT Loss of Vision: Denies Hearing Impairment: Denies Cancer Yes Lymphoma Psychosocial History of Psychiatric Problem: No Blood Transfusions History of Blood Disorders: No Adverse Reaction to a Blood Tr: No (PT REFUSES TO TAKE BLOOD PRODUCTS DUE TO MORMON) Family Medical History Significant Family History: No Pertinent Family Hx, 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 Review of Systems Constitutional: see HPI Gastrointestinal: nausea, vomiting Physical Exam Vital Signs Vital Signs - First Documented 01/22/23 01/22/23 01/22/23 17:02 19:30 22:08 Temp 36.4 Pulse 56 Resp 18 B/P (MAP) 232/105 (147) Pulse Ox 97 O2 Delivery Room Air O2 Flow Rate 2.00 FiO2 28 Capillary Refill : Less Than 3 Seconds Height, Weight, BMI Height: 5'6.00" Weight: 190lbs. 0.0oz. [id number]; 38.37 BMI Method:Stated General Appearance: No Apparent Distress, WD/WN, Chronically ill Eyes: Bilateral Eye Normal Inspection, Bilateral Eye PERRL, Bilateral Eye EOMI HEENT: PERRL/EOMI, Normal ENT Inspection, Pharynx Normal Neck: Full Range of Motion, Normal Inspection, Non Tender, Supple, Carotid Bruit Respiratory: Chest Non Tender, Lungs Clear, Normal Breath Sounds, No Accessory Muscle Use, No Respiratory Distress Cardiovascular: Regular Rate, Rhythm, No Edema, No Gallop, No JVD, No Murmur, Normal Peripheral Pulses Gastrointestinal: Normal Bowel Sounds, No Organomegaly, No Pulsatile Mass, Non Tender, Soft Back: Normal Inspection, No CVA Tenderness, No Vertebral Tenderness Extremity: Normal Capillary Refill, Normal Inspection, Normal Range of Motion, Non Tender, No Calf Tenderness, No Pedal Edema Neurologic/Psychiatric: Alert, Oriented x3, No Motor/Sensory Deficits, Normal Mood/Affect Skin: Normal Color, Warm/Dry Lymphatic: No Adenopathy Short Stay Diagnosis Discharge Diagnosis-Short Stay Admission Diagnosis: HTN urgency Refractory N/V Final Discharge Diagnosis: HTN urgency Conclusion Labs Laboratory Tests 01/22/23 17:06: White Blood Count 10.6, Red Blood Count 4.65, Hemoglobin 14.5, Hematocrit 43, Mean Corpuscular Volume 93, Mean Corpuscular Hemoglobin 31, Mean Corpuscular Hemoglobin Concent 34, Red Cell Distribution Width 15.7H, Platelet Count 295, Mean Platelet Volume 8.9L, Immature Granulocyte % (Auto) 1, Neutrophils (%) (Auto) 61, Lymphocytes (%) (Auto) 34, Monocytes (%) (Auto) 4, Eosinophils (%) (Auto) 1, Basophils (%) (Auto) 0, Neutrophils # (Auto) 6.4, Lymphocytes # (Auto) 3.5, Monocytes # (Auto) 0.5, Eosinophils # (Auto) 0.1, Basophils # (Auto) 0.0, Immature Granulocyte # (Auto) 0.1, Sodium Level 137, Potassium Level 4.2, Chloride Level 105, Carbon Dioxide Level 20L, Anion Gap 12, Blood Urea Nitrogen 23H, Creatinine 1.19, Estimat Glomerular Filtration Rate 44, BUN/Creatinine Ratio 19, Glucose Level 179H, Calcium Level 9.6, Corrected Calcium 9.7, Magnesium Level 2.3, Total Bilirubin 0.5, Aspartate Amino Transf (AST/SGOT) 25, Alanine Aminotransferase (ALT/SGPT) 33, Alkaline Phosphatase 67, B-Type Natriuretic Peptide 72.8, Total Protein 7.1, Albumin 3.9, TSH [place] Testing 2.09 01/23/23 04:29: White Blood Count 8.3, Red Blood Count 4.33, Hemoglobin 13.4, Hematocrit 40, Mean Corpuscular Volume 92, Mean Corpuscular Hemoglobin 31, Mean Corpuscular Hemoglobin Concent 34, Red Cell Distribution Width 15.6H, Platelet Count 268, Mean Platelet Volume 9.5, Immature Granulocyte % (Auto) 1, Neutrophils (%) (Auto) 66, Lymphocytes (%) (Auto) 24, Monocytes (%) (Auto) 8, Eosinophils (%) (Auto) 0, Basophils (%) (Auto) 0, Neutrophils # (Auto) 5.5, Lymphocytes # (Auto) 2.0, Monocytes # (Auto) 0.7, Eosinophils # (Auto) 0.0, Basophils # (Auto) 0.0, Immature Granulocyte # (Auto) 0.1, Sodium Level 137, Potassium Level 4.3, Chloride Level 106, Carbon Dioxide Level 22, Anion Gap 9, Blood Urea Nitrogen 20H, Creatinine 1.00, Estimat Glomerular Filtration Rate 54, BUN/Creatinine Ratio 20, Glucose Level 95, Calcium Level 8.6, Corrected Calcium 9.2, Magnesium Level 2.2, Total Bilirubin 0.4, Aspartate Amino Transf (AST/SGOT) 19, Alanine Aminotransferase (ALT/SGPT) 24, Alkaline Phosphatase 57, Total Protein 5.7L, Albumin 3.2, Phosphorus Level 3.5 Conclusion/Plan DC [place] GABRIELA CONROY DO Jan 23, 2023 05:55
[2023-01-23] MEDS ORDERED: KCL 20 MEQ TAB (K-DUR) PO SCH (06:00)
[2023-01-23] MEDS ORDERED: MAGNESIUM 1 GM/100 ML IVPB 100 ML IV SCH (06:00)
[2023-01-23] MEDS ORDERED: POTASSIUM CL 10MEQ/50ML IVPB 50 ML IV SCH (06:00)
--- NOTE | 2023-01-23 08:21 | Consultation-Cardiology ---
HPI-Cardiology Cardiology Consultation Date of Consultation 01/23/23 Date of Admission Time Seen by Provider: 08:15 Indication: Hypertensive urgency HPI 87-year-old lady with history of hypertension. Was on prednisone due to recent exposure to poison ria, reported that she started the prednisone on January 04, 2023. Was doing well until yesterday evening when she felt flushed suddenly. Checked her blood pressure and it was over 200, she started having nausea and vomiting, try to take clonidine but she vomited it. She called the ambulance and came to the emergency room. She was given another clonidine in the emergency room and her blood pressure has settled down. On my evaluation she was sitting in bed, feeling better. Complaining of mild flushing in her face. No chest pain. No palpitation. No syncope. Home Medications & Allergies Allergies: Coded Allergies: sulfamethoxazole (Verified Allergy, Unknown, 01/11/19) trimethoprim (Verified Allergy, Unknown, 01/11/19) Uncoded Allergies: SULFA (Allergy, Mild, HIVES, 04/21/10) Home Medication List Reviewed: Yes SPU-Ikvngu-Zidwsh Hx Patient Social History Marital Status: single Employed/Student: retired Smoking Status: Never a Smoker 2nd Hand Smoke Exposure: No Recent Hopitalizations: No Alcohol Use?: No Past Medical History Discussed below Family Medical History Significant Family History: No Pertinent Family Hx, 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 Review of Systems-General Review of Systems Constitutional: no symptoms reported, see HPI EENTM: see HPI, no symptoms reported Respiratory: no symptoms reported, see HPI Cardiovascular: see HPI Gastrointestinal: see HPI, nausea, vomiting Genitourinary: no symptoms reported, see HPI Musculoskeletal: no symptoms reported, see HPI Skin: no symptoms reported, see HPI Psychiatric/Neurological: No Symptoms Reported, See HPI Reviewed Test Results Reviewed Test Results Lab Laboratory Tests Test 01/22/23 17:06 01/23/23 04:29 Range/Units White Blood Count 10.6 8.3 4.3-11.0 10^3/uL Red Blood Count 4.65 4.33 3.80-5.11 10^6/uL Hemoglobin 14.5 13.4 11.5-16.0 g/dL Hematocrit 43 40 35-52 % Mean Corpuscular Volume 93 92 80-99 fL Mean Corpuscular Hemoglobin 31 31 25-34 pg Mean Corpuscular Hemoglobin Concent 34 34 32-36 g/dL Red Cell Distribution Width 15.7 H 15.6 H 10.0-14.5 % Platelet Count 295 268 130-400 10^3/uL Mean Platelet Volume 8.9 L 9.5 9.0-12.2 fL Immature Granulocyte % (Auto) 1 1 % Neutrophils (%) (Auto) 61 66 42-75 % Lymphocytes (%) (Auto) 34 24 12-44 % Monocytes (%) (Auto) 4 8 0-12 % Eosinophils (%) (Auto) 1 0 0-10 % Basophils (%) (Auto) 0 0 0-10 % Neutrophils # (Auto) 6.4 5.5 1.8-7.8 10^3/uL Lymphocytes # (Auto) 3.5 2.0 1.0-4.0 10^3/uL Monocytes # (Auto) 0.5 0.7 0.0-1.0 10^3/uL Eosinophils # (Auto) 0.1 0.0 0.0-0.3 10^3/uL Basophils # (Auto) 0.0 0.0 0.0-0.1 10^3/uL Immature Granulocyte # (Auto) 0.1 0.1 0.0-0.1 10^3/uL Sodium Level 137 137 135-145 MMOL/L Potassium Level 4.2 4.3 3.6-5.0 MMOL/L Chloride Level 105 106 98-107 MMOL/L Carbon Dioxide Level 20 L 22 21-32 MMOL/L Anion Gap 12 9 5-14 MMOL/L Blood Urea Nitrogen 23 H 20 H 7-18 MG/DL Creatinine 1.19 1.00 0.60-1.30 MG/DL Estimat Glomerular Filtration Rate 44 54 BUN/Creatinine Ratio 19 20 Glucose Level 179 H 95 70-105 MG/DL Calcium Level 9.6 8.6 8.5-10.1 MG/DL Corrected Calcium 9.7 9.2 8.5-10.1 MG/DL Magnesium Level 2.3 2.2 1.6-2.4 MG/DL Total Bilirubin 0.5 0.4 0.1-1.0 MG/DL Aspartate Amino Transf (AST/SGOT) 25 19 5-34 U/L Alanine Aminotransferase (ALT/SGPT) 33 24 0-55 U/L Alkaline Phosphatase 67 57 40-136 U/L B-Type Natriuretic Peptide 72.8 <100.0 PG/ML Total Protein 7.1 5.7 L 6.4-8.2 GM/DL Albumin 3.9 3.2 3.2-4.5 GM/DL TSH [place] Testing 2.09 0.35-4.94 UIU/ML Phosphorus Level 3.5 2.3-4.7 MG/DL Physical Exam Physical Exam Vital Signs Vital Signs - First Documented 01/22/23 01/22/23 01/22/23 17:02 19:30 22:08 Temp 36.4 Pulse 56 Resp 18 B/P (MAP) 232/105 (147) Pulse Ox 97 O2 Delivery Room Air O2 Flow Rate 2.00 FiO2 28 Capillary Refill : Less Than 3 Seconds Height, Weight, BMI Height: 5'6.00" Weight: 190lbs. 0.0oz. 86.053027sj; 38.37 BMI Method:Stated General Appearance: No Apparent Distress, WD/WN Eyes: Bilateral Eye Normal Inspection, Bilateral Eye PERRL, Bilateral Eye EOMI HEENT: PERRL/EOMI, TMs Normal, Normal ENT Inspection, Pharynx Normal, Moist Mucous Membranes Neck: Full Range of Motion, Normal Inspection, Non Tender, Supple, Carotid Bruit Respiratory: Chest Non Tender, Normal Breath Sounds, No Accessory Muscle Use, No Respiratory Distress Cardiovascular: Regular Rate, Rhythm, No Edema, No Gallop, No JVD, Normal Peripheral Pulses, Systolic Murmur Gastrointestinal: Normal Bowel Sounds, No Organomegaly, No Pulsatile Mass, Non Tender, Soft Back: Normal Inspection, No CVA Tenderness, No Vertebral Tenderness Extremity: Normal Capillary Refill, Normal Inspection, Normal Range of Motion, Non Tender, No Calf Tenderness, No Pedal Edema Neurologic/Psychiatric: Alert, Oriented x3, No Motor/Sensory Deficits, Normal Mood/Affect Skin: Normal Color, Warm/Dry Lymphatic: No Adenopathy A/P-Cardiology Admission Diagnosis Hypertensive urgency Nausea and vomiting Coronary artery disease Assessment/Plan Hypertensive urgency, symptomatic Better control at this time Was on lisinopril 20 mg daily, I will start her on losartan 100 mg daily and continue with clonidine as needed. Mild aortic valve stenosis, repeat 2D echocardiogram Nausea and vomiting, better at this time Recent exposure to poison ria. Maintained on prednisone Managed by medical team Coronary artery disease, mild disease per cardiac catheterization in 2011. No recent cardiac work-up. REENA VILLELA MD Jan 23, 2023 08:21
--- NOTE | 2023-01-23 08:29 | Occupational Therapy Eval ---
OT Evaluation-General/PLF Medical Diagnosis Admission Date Jan 22, 2023 at 19:33 Medical Diagnosis: HTN Onset Date: Jan 22, 2023 Therapy Diagnosis Therapy Diagnosis: general weakness Height/Weight Height (Feet): 5 Height (Inches): 6.00 Weight (Pounds): 190 Weight (Ounces): 0.0 Precautions Precautions/Isolations: Fall Prevention, Standard Precautions Weight Bear Status Weight Bearing Restriction: Full Weight Bearing Referral Referral Reason: Evaluation/Treatment Medical History Pertinent Medical History: Lymphoma Current History 87-year-old lady with history of hypertension. Was on prednisone due to recent exposure to poison ria, reported that she started the prednisone on January 04, 2023. Was doing well until yesterday evening when she felt flushed suddenly. Checked her blood pressure and it was over 200, she started having nausea and vomiting, try to take clonidine but she vomited it. She called the ambulance and came to the emergency room. She was given another clonidine in the emergency room and her blood pressure has settled down. On my evaluation she was sitting in bed, feeling better. Complaining of mild flushing in her face. No chest pain. No palpitation. Social History Home: Single Level Current Living Status: Alone Entry Into Home: Ramp ADL-Prior Level of Function SCALE: Activities may be completed with or without assistive devices. 3-Xbzftgvfhl-rpscznp completes the activity by him/herself with no assistance from a helper. 5-Set-up or Clean-up Assistance-helper sets up or cleans up; patient completes activity. Cement assists only prior to or following the activity. 4-Supervision or Touching Assistance-helper provides verbal cues and/or touching/steadying and/or contact guard assistance as patient completes activity. Assistance may be provided throughout the activity or intermittently. 3-Partial/Moderate Assistance-helper does LESS THAN HALF the effort. Cement lifts, holds or supports trunk or limbs, but provides less than half the effort. 2-Substantial/Maximal Assistance-helper does MORE THAN HALF the effort. Cement lifts or holds trunk or limbs and provides more than half the effort. 8-Wdsxgcvus-sktees does ALL the effort. Patient does none of the effort to complete the activity. Or, the assistance of 2 or more helpers is required for the patient to complete the activity. If activity was not attempted, code reason: 7-Patient Refused. 9-Not Applicable-not attempted and the patient did not perform the activity before the current illness, exacerbation or injury. 10-Not Attempted due to Environmental Limitations-(lack of equipment, weather restraints, etc.). 88-Not Attempted due to Medical Conditions or Safety Concerns. ADL PLOF Comments Has 2 daughters ;mirza close and help as needed Self Care: Independent Functional Cognition: Independent DME/Equipment: Bath Chair, Grab Bars Drive Self: Yes OT Current Status Subjective Patient appears anxious with ambulation and self appearance in hospital, agrees to therapy. REports she does not go outside alone, walks laps in her home, ZOOM for hoahaoism events Mental Status/Objective Patient Orientation: Person, Place, Time, Situation Attachments: IV, Oxygen Current Glasses/Contacts: Yes Hearing Aids: Yes (does not wear Right ear better than left) Hand Dominance: Right Upper Extremity ROM BUE ROM WFLS Upper Extremity Coordination INTACT Upper Extremity Sensation INTACT Upper Extremity Strength WFLS age appropriate ADL-Treatment Eating (QC): 6 Oral Hygiene (QC): 6 Shower/Bathe Self (QC): 7 Upper Body Dressing (QC): 5 Lower Body Dressing (QC): 6 On/Off Footwear (QC): 6 Toileting Hygiene (QC): 6 Education OT Patient Education: Correct positioning, Exercise program, Progress toward Goal/Update tx plan, Purpose of tx/functional activities, Reviewed precautions, Rehab process, Safety issues, Transfer techniques Teaching Recipient: Patient Teaching Methods: Discussion Response to Teaching: Return Demonstration OT [employer] Adf Developer Goals Alf Goals 1=Demonstrate adherence to instructed precautions during ADL tasks. 2=Patient will verbalize/demonstrate understanding of assistive devices/modifications for ADL. 3=Patient will improve strength/tolerance for activity to enable patient to perform ADL's. OT Education/Plan Problem List/Assessment Assessment: No Skilled OT Needs ID'd Discharge Recommendations Plan/Recommendations: Discontinue OT Treatment Plan/Plan of Care Patient would benefit from OT for education, treatment and training to promote independence in ADL's, mobility, safety and/or upper extremity function for ADL's. Plan of Care: OTHER (EVAL only) Treatment Duration: Jan 23, 2023 Frequency: 1 time per week Estimated Hrs Per Day: .25 hour per day Agreement: Yes Rehab Potential: Good Time Start Time: 08:29 Stop Time: 08:41 DATE: Jan 23, 2023 Total Time Billed (hr/min): 12 Billed Treatment Time EVM 12 RHONA GOMES OT Jan 23, 2023 08:29
--- NOTE | 2023-01-23 08:51 | Physical Therapy Evaluation ---
PT Evaluation-General Medical Diagnosis Admission Date Jan 22, 2023 at 19:33 Medical Diagnosis: hypertensive urgency/N&V Onset Date: Jan 22, 2023 Therapy Diagnosis Therapy Diagnosis: debility Height/Weight Height (Feet): 5 Height (Inches): 6.00 Weight (Pounds): 190 Weight (Ounces): 0.0 Precautions Precautions/Isolations: Fall Prevention, Standard Precautions Referral Physician: Radha Reason for Referral: Evaluation/Treatment Medical History Pertinent Medical History: HTN, Lymphoma Current History ER secondary to HTN/vomiting Reviewed History: Yes Social History Home: Single Level Current Living Status: Alone Entry Into Home: Ramp Prior Prior Level of Function SCALE: Activities may be completed with or without assistive devices. 2-Znakaajkts-lhkkpct completes the activity by him/herself with no assistance from a helper. 5-Set-up or Clean-up Assistance-helper sets up or cleans up; patient completes activity. Zebulon assists only prior to or following the activity. 4-Supervision or Touching Assistance-helper provides verbal cues and/or touching/steadying and/or contact guard assistance as patient completes activity. Assistance may be provided throughout the activity or intermittently. 3-Partial/Moderate Assistance-helper does LESS THAN HALF the effort. Zebulon lifts, holds or supports trunk or limbs, but provides less than half the effort. 2-Substantial/Maximal Assistance-helper does MORE THAN HALF the effort. Zebulon lifts or holds trunk or limbs and provides more than half the effort. 8-Opgqtkxue-phzqif does ALL the effort. Patient does none of the effort to complete the activity. Or, the assistance of 2 or more helpers is required for the patient to complete the activity. If activity was not attempted, code reason: 7-Patient Refused. 9-Not Applicable-not attempted and the patient did not perform the activity before the current illness, exacerbation or injury. 10-Not Attempted due to Environmental Limitations-(lack of equipment, weather restraints, etc.). 88-Not Attempted due to Medical Conditions or Safety Concerns. Bed Mobility: 6 Transfers (B,C,W/C): 6 Gait: 6 Indoor Mobility (Ambulation): Independent Prior Devices Use: None PT Evaluation-Current Subjective Patient agrees to PT. Objective Patient Orientation: Normal For Age Attachments: IV ROM/Strength ROM Lower Extremities bilateral LE WFL Strength Lower Extremities 4/5 grossly bilateral LE all planes Integumentary/Posture Bowel Incontinence: No Bladder Incontinence: No Posture WFL Neuromuscular (Tone, Coordination, Reflexes) grossly intact Sensory Vision: Wears Glasses Hearing: Impaired Hand Dominance: Right Transfers Lying to Sitting/Side of Bed(Q: 6 Sit to Stand (QC): 6 Chair/Ief-an-Uogon Xfer(QC): 6 Gait Mode of Locomotion: Walk Anticipated Mode of Locomotion: Walk Walk 10 feet (QC): 6 Walk 50 ft with 2 Turns(QC): 6 Walk 150 ft (QC): 6 Distance: 400' Gait Assistive Device: None Comments/Gait Description safe and functional with no deviation Balance Sitting Static: Normal Sitting Dynamic: Normal Standing Static: Normal Standing Dynamic: Normal Assessment/Needs Patient is currently at independent PLOF with all gross motor skills safely. No skilled PT indicated at this time. Rehab Potential: Fair PT Plan Treatment/Plan Treatment Plan: Discontinue PT Treatment Duration: Jan 23, 2023 Frequency: 1 time per week Estimated Hrs Per Day: .25 hour per day Patient and/or Family Agrees t: Yes Time Time In: 829 Time Out: 841 DATE: Jan 23, 2023 Total Billed Treatment Time: 12 Total Billed Treatment 1 visit EVModC 12 min RUDDY DALE PT Jan 23, 2023 08:51
[2023-01-23] MEDS ORDERED: LOSARTAN 100 MG (COZAAR) TABLET PO SCH (09:00)
[2023-01-23] MEDS: SENNOSIDES 8.6 MG (SENOKOT) TAB PO SCH (09:29)
[2023-01-23] MEDS: DOCUSATE SODIUM 100 MG (COLACE) CAP PO SCH (09:29)
[2023-01-23] MEDS ORDERED: VITA400T9 PO (09:41)
[2023-01-23] MEDS ORDERED: MAGN400T39 PO (09:41)
[2023-01-23] MEDS ORDERED: DIGESTIVE AID PO (09:41)
[2023-01-23] MEDS ORDERED: IRBE150T23 PO (09:41)
[2023-01-23] MEDS ORDERED: CARDIO PLUS PO (09:41)
[2023-01-23] MEDS ORDERED: CHOL200025 PO (09:41)
[2023-01-23] MEDS ORDERED: COD1CAPS13 PO (09:41)
[2023-01-23] MEDS ORDERED: CYAN-41 PO (09:41)
[2023-01-23] MEDS ORDERED: VITA-203 PO (09:41)
[2023-01-23] MEDS ORDERED: CLN.1T PO (10:49)
[2023-01-23 11:50] VITALS: BP 108/61
== END 2023-01-23 10:46 | disposition home or self-care (01) ==
LOC: EDUNIT# 16:59 → ER 17:00 → ICU 19:33 → UNDOADMOB 19:33 → ICU 20:00 → UNDODISOB 01-23 10:46
PROVIDERS: ADMIT Internal Medicine; ATTEND Internal Medicine
DX: I16.0 Hypertensive urgency (principal); T38.0X5A Adverse effect of glucocorticoids and synthetic analogues, initial encounter; L23.7 Allergic contact dermatitis due to plants, except food; I25.10 Atherosclerotic heart disease of native coronary artery without angina pectoris; Z79.899 Other long term (current) drug therapy; Z28.310 Unvaccinated for COVID-19
CPT/HCPCS: 70450; 71045; 80053 ×2; 83735 ×2; 83880; 84100; 84443; 85025 ×2; 87081; 93005; 93041; 96372; 96375; 97162; 97166; 99284; C8929; G0378; 36415; 93306

== ENCOUNTER 2023-05-24 14:25 | Observation (INO) | payer MEDICARE, OTHER ==
[~2023-05-24] VITALS: Ht 167.7 cm; Wt 91.0 kg
[~2023-05-24 14:25] MED LIST changes: +CARDIO PLUS PO; +CHOL200025 PO; +COD1CAPS13 PO; +CYAN-41 PO; +DIGESTIVE AID PO; +IRBE150T23 PO; +MAGN400T39 PO; -MECL-149 PO; +MECL-291 PO; +VITA-203 PO; +VITA400T9 PO
[2023-05-24] MEDS ORDERED: ONDANSETRON INJECTION 4 MG/2 ML (SDV) ONE (14:39)
[2023-05-24 14:41] LABS: BASOPHILS # (AUTO) 0.1 10^3/uL (0.0-0.1); BASOPHILS % (AUTO) 1 % (0-10); EOSINOPHILS # (AUTO) 0.2 10^3/uL (0.0-0.3); EOSINOPHILS % (AUTO) 3 % (0-10); HEMATOCRIT 40 % (35-52); HEMOGLOBIN 13.4 g/dL (11.5-16.0); LYMPHOCYTES % (AUTO) 42 % (12-44); MEAN CORPUSCULAR HEMOGLOBIN 32 pg (25-34); MEAN CORPUSCULAR HGB CONC 33 g/dL (32-36); MEAN CORPUSCULAR VOLUME 96 fL (80-99); MONOCYTES # (AUTO) 0.7 10^3/uL (0.0-1.0); MONOCYTES % (AUTO) 9 % (0-12); NEUTROPHILS # (AUTO) 3.2 10^3/uL (1.8-7.8); NEUTROPHILS % (AUTO) 45 % (42-75); PLATELET COUNT 282 10^3/uL (130-400); WHITE BLOOD COUNT 7.2 10^3/uL (4.3-11.0)
[2023-05-24] MEDS ORDERED: LABETALOL 5 mg/ml 4 ML SINGLE DOSE SYRINGE IV ONE (14:45)
--- NOTE | 2023-05-24 14:46 | ED General ---
General Chief Complaint: Cardiac/General Problems Stated Complaint: ELEVATED BP | NAUSEA | VOMITING Nursing Triage Note: PT TO RM 7 BY EMS WITH C/O DIZZINESS, NAUSEA AND HTN TODAY. PT UNABLE TO TAKE CLONIDINE DUE TO NAUSEA Source of Information: Patient Exam Limitations: No Limitations (ESPERANZA SCHERER) History of Present Illness Date Seen by Provider: May 24, 2023 Time Seen by Provider: 14:42 Initial Comments Patient is a 87-year-old female with a history of hypertension who presents to the ED for dizziness, vomiting and elevated blood pressure. She states symptoms started 1 to 2 hours ago while sitting at home. Started feeling dizzy felt like the room was spinning and started vomiting. She was found to have a elevated blood pressure over 200 systolic. She was 226/97 on arrival. Patient was brought to ED by EMS. Was given 4 mg Zofran in route secondary to vomiting. She denies of any specific chest pain, headache, current dizziness, unilateral muscle weakness or sensory changes, cough, abdominal pain, pain with urination, fever. Denies history of strokes. After reviewing previous history, she has had similar symptoms in the past and admitted for hypertensive emergency. She denies any confusion, visual changes, recent URI. She does take clonidine but was not able to take her medication secondary to the vomiting. Patient was given sublingual nitro in route without much improvement. Does take irbesartan 150 mg daily (ESPERANZA SCHERER) Allergies and Home Medications Allergies Coded Allergies: sulfamethoxazole (Verified Allergy, Unknown, 01/11/19) trimethoprim (Verified Allergy, Unknown, 01/11/19) Uncoded Allergies: SULFA (Allergy, Mild, HIVES, 04/21/10) Patient Home Medication List Home Medication List Reviewed: Yes (ESPERANZA SCHERER) Ascorbate Calcium (Vitamin C) 500 Mg Tablet, 500 MG PO DAILY, (Reported) Entered as Reported by: MARCELO LANTIGUA on 11/22/21 0959 Last Action: Reviewed Clonidine HCl (Clonidine HCl) 0.1 Mg Tablet, 0.1 MG PO Q6H PRN for SBP OVER 160, (Reported) Entered as Reported by: MARCELO LANTIGUA on 05/25/23 1035 Last Action: Reviewed Irbesartan (Irbesartan) 150 Mg Tablet, 75 MG PO BID, (Reported) Entered as Reported by: MARCELO LANTIGUA on 01/23/23940 Last Action: Reviewed Mag Citrate/Potassium Citrate (K-mg Citrate 99-70 mg Capsule) 70 Mg-99 Mg Capsule, 1 EACH PO HS, (Reported) Entered as Reported by: MARCELO LANTIGUA on 05/25/231034 Last Action: Reviewed Magnesium Oxide (Magnesium) 400 Mg Magnesium Tablet, 400 MG PO HS, (Reported) Entered as Reported by: MARCELO LANTIGUA on 01/23/23940 Last Action: Reviewed Vitamin B Complex (B Complex) 1 Each Tablet, 1 EACH PO DAILY, (Reported) Entered as Reported by: MARCELO LANTIGUA on 05/25/231034 Last Action: Reviewed Vitamin D3/Vitamin K2 (Mk4) (K2 Plus D3 Tablet) 1,000 Unit-100 Mcg Tablet, 1 EACH PO DAILY, (Reported) Entered as Reported by: MARCELO LANTIGUA on 05/25/231034 Last Action: Reviewed Discontinued Medications Cholecalciferol (Vitamin D3) (Vitamin D3) 50 Mcg (2000 Unit) Tablet, 50 MCG PO DAILY, (Reported) Discontinued Reason: No Longer Taking Entered as Reported by: MARCELO LANTIGUA on 01/23/23940 Last Action: Discontinued Clonidine HCl (Clonidine HCl) 0.1 Mg Tablet, 0.1 MG PO Q6H PRN for SBP > 160 Discontinued Reason: No Longer Taking Prescribed by: LESLIE CONROY on 01/23/231048 Last Action: Discontinued Cod Liver Oil (Cod Liver Oil) 1 Each Capsule, 1 EACH PO DAILY, (Reported) Discontinued Reason: No Longer Taking Entered as Reported by: MARCELO LANTIGUA on 01/23/23940 Last Action: Discontinued Cyanocobalamin (Vitamin B-12) (Vitamin B-12) 1,000 Mcg Tablet, 1,000 MCG PO DAILY, (Reported) Discontinued Reason: No Longer Taking Entered as Reported by: MARCELO LANTIGUA on 01/23/23940 Last Action: Discontinued Vitamin A Palmitate (Vitamin A) 3,000 Mcg (23946 Unit) Capsule, 3,000 MCG PO DAILY, (Reported) Discontinued Reason: No Longer Taking Entered as Reported by: MARCELO LANTIGUA on 01/23/23940 Last Action: Discontinued Vitamin E Mixed (Vitamin E) 400 Unit Tablet, 400 UNIT PO DAILY, (Reported) Discontinued Reason: No Longer Taking Entered as Reported by: MARCELO LANTIGUA on 01/23/23940 Last Action: Discontinued [Cardio Plus] , 2 EA PO DAILY, (Reported) Discontinued Reason: No Longer Taking Entered as Reported by: MARCELO LANTIGUA on 01/23/23940 Last Action: Discontinued [Digestive Aid] POWD, 1 EA PO DAILY, (Reported) Discontinued Reason: No Longer Taking Entered as Reported by: MARCELO LANTIGUA on 01/23/23940 Last Action: Discontinued Review of Systems Review of Systems Constitutional: No chills, No diaphoresis, No malaise, No weakness EENTM: No ear pain, No blurred vision Respiratory: No cough Cardiovascular: No chest pain Gastrointestinal: No RUQ, No abdominal pain, No diarrhea; nausea, vomiting Genitourinary: No decreased output, No discharge Musculoskeletal: No back pain, No joint pain Psychiatric/Neurological: Denies Anxiety, Denies Depressed, Denies Headache, Denies Numbness, Denies Paresthesia (ESPERANZA SCHERER) Past Lshidpz-Rsxlyj-Bhodzk Hx Patient Social History Tobacco Use?: No Use of E-Cig and/or Vaping dev: No Substance use?: No Alcohol Use?: No Pt feels they are or have been: No (ESPERANZA SCHERER) Immunizations Up To Date PED Vaccines UTD: No (ESPERANZA SCHERER) Seasonal Allergies Seasonal Allergies: No (ESPERANZA SCHERER) Past Medical History Surgery/Hospitalization HX: HTN, HX OF LYMPHOMA Surgeries: Yes Eye Surgery Respiratory: Yes Sleep Apnea Currently Using CPAP: No Currently Using BIPAP: No Cardiac: Yes 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, Palpitations Neurological: No 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 Disorders: No Female 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00 (ELIANE BUDREN MD) Vital Signs Capillary Refill : (ESPERANZA SCHERER) Height, Weight, BMI Height: 5'6.00" Weight: 190lbs. 0.0oz. 86.741238rv; 32.00 BMI Method:Stated General Appearance: No Apparent Distress, WD/WN Eyes: Bilateral Eye Normal Inspection, Bilateral Eye PERRL, Bilateral Eye EOMI HEENT: PERRL/EOMI, TMs Normal, Normal ENT Inspection, Pharynx Normal Neck: Full Range of Motion, Normal Inspection, Non Tender Respiratory: Chest Non Tender, Lungs Clear, Normal Breath Sounds, No Accessory Muscle Use Cardiovascular: Regular Rate, Rhythm, No Edema, No Gallop, No JVD, No Murmur Gastrointestinal: Normal Bowel Sounds, No Organomegaly, No Pulsatile Mass, Non Tender Back: Normal Inspection, No CVA Tenderness Extremity: Normal Capillary Refill, Normal Inspection, Normal Range of Motion, Non Tender Neurologic/Psychiatric: Alert, Oriented x3, No Motor/Sensory Deficits, Normal 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, 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 Skin: Normal Color, Warm/Dry (ESPERANZA SCHERER) Progress/Results/Core Measures Suspected Sepsis SIRS Temperature: Pulse: 81 Respiratory Rate: 18 Laboratory Tests 05/24/23 14:30: White Blood Count 7.2 Blood Pressure / Mean: Laboratory Tests 05/24/23 14:30: Creatinine 0.98, INR Comment 1.0, Platelet Count 282, Total Bilirubin 0.4 (ESPERANZA SCHERER) Results/Orders Lab Results Laboratory Tests Test 05/24/23 14:30 05/24/23 14:47 Range/Units White Blood Count 7.2 4.3-11.0 10^3/uL Red Blood Count 4.19 3.80-5.11 10^6/uL Hemoglobin 13.4 11.5-16.0 g/dL Hematocrit 40 35-52 % Mean Corpuscular Volume 96 80-99 fL Mean Corpuscular Hemoglobin 32 25-34 pg Mean Corpuscular Hemoglobin Concent 33 32-36 g/dL Red Cell Distribution Width 14.6 H 10.0-14.5 % Platelet Count 282 130-400 10^3/uL Mean Platelet Volume 9.0 9.0-12.2 fL Immature Granulocyte % (Auto) 0 % Neutrophils (%) (Auto) 45 42-75 % Lymphocytes (%) (Auto) 42 12-44 % Monocytes (%) (Auto) 9 0-12 % Eosinophils (%) (Auto) 3 0-10 % Basophils (%) (Auto) 1 0-10 % Neutrophils # (Auto) 3.2 1.8-7.8 10^3/uL Lymphocytes # (Auto) 3.0 1.0-4.0 10^3/uL Monocytes # (Auto) 0.7 0.0-1.0 10^3/uL Eosinophils # (Auto) 0.2 0.0-0.3 10^3/uL Basophils # (Auto) 0.1 0.0-0.1 10^3/uL Immature Granulocyte # (Auto) 0.0 0.0-0.1 10^3/uL Prothrombin Time 13.0 12.2-14.7 SEC INR Comment 1.0 0.8-1.4 Activated Partial Thromboplast Time 24 24-35 SEC Sodium Level 139 135-145 MMOL/L Potassium Level 3.6 3.6-5.0 MMOL/L Chloride Level 106 98-107 MMOL/L Carbon Dioxide Level 18 L 21-32 MMOL/L Anion Gap 15 H 5-14 MMOL/L Blood Urea Nitrogen 19 H 7-18 MG/DL Creatinine 0.98 0.60-1.30 MG/DL Estimat Glomerular Filtration Rate 55 BUN/Creatinine Ratio 19 Glucose Level 131 H 70-105 MG/DL Calcium Level 9.7 8.5-10.1 MG/DL Corrected Calcium 9.7 8.5-10.1 MG/DL Magnesium Level 2.0 1.6-2.4 MG/DL Total Bilirubin 0.4 0.1-1.0 MG/DL Aspartate Amino Transf (AST/SGOT) 28 5-34 U/L Alanine Aminotransferase (ALT/SGPT) 22 0-55 U/L Alkaline Phosphatase 85 40-136 U/L Myoglobin 35.1 10.0-92.0 NG/ML Troponin I < 0.028 <0.028 NG/ML B-Type Natriuretic Peptide 74.2 <100.0 PG/ML Total Protein 7.4 6.4-8.2 GM/DL Albumin 4.0 3.2-4.5 GM/DL Lipase 20 8-78 U/L Influenza Type A (RT-PCR) Not Detected Not Detecte Influenza Type B (RT-PCR) Not Detected Not Detecte SARS-CoV-2 RNA (RT-PCR) Not Detected Not Detecte (ELIANE BURDEN MD) Vital Signs/I&O 05/24/23 05/24/23 05/24/23 05/24/23 14:25 14:30 17:12 17:26 Temp 35.8 Pulse 81 Resp 18 B/P (MAP) 205/112 204/90 Pulse Ox 93 O2 Delivery Room Air Nasal Cannula O2 Flow Rate 2.00 (ELIANE BURDEN MD) Vital Signs/I&O Capillary Refill : (ESPERANZA SCHERER) ECG Comment Sinus rhythm, voltage criteria for LVH, 75 bpm, QRS duration 98 MS, QTc 411 MS (ESPERANZA SCHERER) Departure Communication (PCP) History of hypertension presents the ED for acute onset of dizziness at home. This occurred about an hour before arrival. Several bouts of vomiting after the dizziness. Denies of any headache, visual loss, unilateral weakness or sensory changes, chest pain or shortness of breath. Similar type episodes in the past after reviewing previous history. Has been admitted for hypertensive emergency/urgency. Due to her blood pressure over 200 systolic with the dizzine ss and vomiting. CT scan of the head generalized cardiac work-up was initiated. EKG was obtained which did not note any ST elevation or depression or arrhythmia. Chest x-ray shows mild cardiomegaly with perihilar and bibasilar interstitial opacities. This could be seen with atelectasis pulmonary edema or pneumonia. She denies of any flulike symptoms such as cough, fever, weakness, or shortness of breath unlikely pneumonia. No appreciation of lower leg swelling. she denies of any specific cough .she was slightly hypoxic and was placed on 2 L with improvement to 98%. She was around 85-87 on room air. After reviewing previous visit she was found to be hypoxic as well. COVID influenza were negative. CBC, CMP was grossly unremarkable. Troponin and BNP was negative. She did receive labetalol 20 mg without much improvement. She did receive Zofran 4 mg in route by EMS, 4 mg zofran here in the ED as well as Phenergan with some improvement of her nausea. She was able to tolerate her clonidine 0.1mg which she takes emergent at home as needed. No improvement after medication. Patient was started on a Cardene drip. Concerning for hypertensive emergency secondary to the dizziness and vomiting and elevated blood. Patient was discussed with Dr. Conroy who agreed to accept patient (ESPERANZA SCHERER) Impression Primary Impression: Hypertensive emergency Disposition: ADMITTED INPATIENT Condition: Stable Admissions Decision to Admit Reason: Admit from ER (General) Decision to Admit/Date: May 24, 2023 Time/Decision to Admit Time: 15:45 (ESPERANZA SCHERER) Departure-Patient Inst. Referrals: TELMA VARGAS MD (PCP/Family) Primary Care Physician ATTENDING PHYSICIAN NOTE: I was physically present as attending physician in the emergency department during the care of this patient, but I was not directly involved in the decision making or delivery of care for this patient. (ELIANE BURDEN MD) ESPERANZA SCHERER May 24, 2023 14:46 ELIANE BURDEN MD May 25, 2023 17:24
[2023-05-24 14:50] LABS: CHLORIDE 106 MMOL/L (98-107); POTASSIUM 3.6 MMOL/L (3.6-5.0); SODIUM 139 MMOL/L (135-145)
[2023-05-24 14:52] LABS: CALCIUM 9.7 MG/DL (8.5-10.1)
[2023-05-24 14:53] LABS: GLUCOSE 131 MG/DL (70-105); TOTAL PROTEIN 7.4 GM/DL (6.4-8.2)
[2023-05-24 14:54] LABS: CARBON DIOXIDE 18 MMOL/L (21-32)
[2023-05-24 14:55] LABS: BILIRUBIN,TOTAL 0.4 MG/DL (0.1-1.0)
[2023-05-24 14:56] LABS: ALKALINE PHOSPHATASE 85 U/L (40-136)
[2023-05-24 14:57] LABS: BUN/CREATININE RATIO 19; CREATININE SERUM 0.98 MG/DL (0.60-1.30); GFR ESTIMATED 55
--- NOTE | 2023-05-24 14:58 | Diagnostic Imaging Report ---
EXAMINATION: Chest 1 view HISTORY: Chest pain COMPARISON: 01/22/2023 FINDINGS: Stable enlargement of the cardiac silhouette. There are mild interstitial opacities within the mid and lower lungs. No significant pleural effusion or pneumothorax. The osseous structures are intact. IMPRESSION: 1. Mild cardiomegaly with perihilar and basilar interstitial opacities. Findings can be seen with atelectasis, pulmonary edema, or pneumonia. Dictated by: Dictated on workstation # [id number]
[2023-05-24 14:59] LABS: ALANINE AMINOTRANSFERASE 22 U/L (0-55)
[2023-05-24 15:00] LABS: LIPASE 20 U/L (8-78)
--- NOTE | 2023-05-24 15:08 | Diagnostic Imaging Report ---
PROCEDURE: CT head without contrast. TECHNIQUE: Multiple contiguous axial images were obtained through the brain without the use of intravenous contrast. Auto Exposure Controls were utilized during the CT exam to meet ALARA standards for radiation dose reduction. INDICATION: Altered mental status, dizziness. COMPARISON: CT of the head on 01/22/2023. FINDINGS: Mild generalized cerebral and cerebellar volume loss. Mild nonspecific periventricular hypoattenuation, most commonly seen with chronic small vessel ischemic disease. Calcified atherosclerosis of the bilateral cavernous and paraclinoid internal carotid arteries and intracranial vertebral arteries. No intra- or extra-axial mass or fluid collection. No acute hemorrhage. The ventricles are normal in size, shape, and morphology. The shine-white matter junction is normal. The subarachnoid cisterns are patent. The visualized paranasal sinuses are normal. The visualized portions of the orbits and globes are normal. The mastoid air cells are clear. The toll collector topogram shows no lytic lesion or fracture. Impression: No acute intracranial hemorrhage. No large vascular territory bates-white loss. No intracranial mass, midline shift, or hydrocephalus. Mild cerebral volume loss. Mild chronic small vessel ischemic disease. Dictated by: Dictated on workstation # [id number]
[2023-05-24] MEDS ORDERED: PROMETHAZINE INJ 25 MG/ML VIAL IVP ONE (15:15)
[2023-05-24] MEDS ORDERED: cloNIDine 0.1 MG TABLET PO ONE (16:45)
[2023-05-24] MEDS ORDERED: niCARdipine INJECTION 50 MG in NS (IVPB) 250 ML 230 ML IV STA (16:56)
[2023-05-24] MEDS ORDERED: niCARdipine IV PYXIS DRIP KIT = 50 MG X 2 VIALS ONE (17:05)
[2023-05-24] MEDS ORDERED: NS (IVPB) 250 ML 250 ML ONE (17:06)
[2023-05-24] MEDS: niCARdipine INJECTION 50 MG in NS (IVPB) 250 ML 230 ML IV SCH (17:57)
[2023-05-24] MEDS ORDERED: ANTACID SUSPENSION 30 ML UDC PO PRN (18:00)
[2023-05-24] MEDS ORDERED: BISACODYL 10 MG SUPPOSITORY PR PRN (18:00)
[2023-05-24] MEDS ORDERED: diphenhydrAMINE 25 MG TABLET PO PRN (18:00)
[2023-05-24] MEDS ORDERED: MILK OF MAGNESIA 400 MG/5 ML 30 ML UDC PO PRN (18:00)
[2023-05-24] MEDS ORDERED: CALCIUM CARBONATE 500 MG CHEW TABLET PO PRN (18:00)
[2023-05-24] MEDS ORDERED: MELATONIN 3 MG TABLET PO PRN (18:00)
[2023-05-24] MEDS ORDERED: ENOXAPARIN 40 MG/0.4 ML SYRINGE SC SCH ×2 (18:00→20:00)
[2023-05-24] MEDS ORDERED: diphenhydrAMINE INJ 50 MG/ML VIAL IVP PRN (18:00)
[2023-05-24] MEDS ORDERED: HYDROmorphone INJECTION 2 MG/ML VIAL IV PRN (18:00)
[2023-05-24] MEDS ORDERED: ONDANSETRON INJECTION 4 MG/2 ML (SDV) IV PRN (18:00)
[2023-05-24] MEDS ORDERED: NS IV 500 ML 500 ML IV PRN (18:00)
[2023-05-24] MEDS ORDERED: oxyCODONE IMMEDIATE RELEASE 5 MG TABLET PO PRN (18:00)
[2023-05-24] MEDS ORDERED: LACTULOSE SYRUP 10GM/15ML 30ML UDC PO PRN (18:00)
[2023-05-24] MEDS ORDERED: ACETAMINOPHEN 325 MG TABLET PO PRN (18:00)
[2023-05-24 18:04] VITALS: BP 204/90
[2023-05-24] MEDS ORDERED: RT-ALBUTEROL SULF 2.5 MG/3 ML PRE-MIX VIAL INH PRN (18:15)
--- NOTE | 2023-05-24 18:26 | Tele-ICU Progress Note ---
Subjective Date Seen by a Provider: May 24, 2023 Time Seen by a Provider: 18:25 Subjective/Events-last exam (Tele-ICU Physician , Progress Note ) Service provided via interactive audio and video telecommunications E-CARE system to a patient admitted to ICU bed in [facility]. Patient is seen today due to persistent need of ICU care Available chart/ vitals / labs / Images reviewed Video assessment done using teleICU camera, rest of exam as per RN 87 yr old female presented to ED with c/o nausea and vomiting, found to have sbp>200 did not get better ntg. and hyfralazine. started on nicardapine drip. CTH negative. with nicardapine her BP came down to 149/66. now feeling much better. impression. 1. hypertensive Emergency improving. plan. 1. continue nicardapine drip 2. start oral antihypertensives and titrate Coordination of care with the bedside physicians. I am remotely monitoring this patient from Tele icu station in [place]. I am unable to do the bedside exam, and history/physical and pertinent information is taken from other notes in the computer and bedside staff. Certain portions of this document may have been dictated utilizing voice recognition technology such as gauzz. Inherent to this technology, typographical and grammatical errors may exist. As much as I am diligent to identify and correct to these mistakes, some errors may remain in the document. Critical care time devoted to this patient today is approximately is-15 minutes- Sepsis Event Evaluation Height, Weight, BMI Height: 5'6.00" Weight: 190lbs. 0.0oz. 86.344250rc; 32.35 BMI Method:Stated Exam Exam Patient acknowledged, consented, and participated in this virtual visit which was conducted using real time audio/video Vital Signs Date Time Temp Pulse Resp B/P (MAP) Pulse Ox O2 Delivery O2 Flow Rate FiO2 05/24/23 18:14 Nasal Cannula 2.00 05/24/23 18:04 35.8 81 93 05/24/23 17:57 178/78 05/24/23 17:26 204/90 05/24/23 17:12 205/112 05/24/23 14:30 Nasal Cannula 2.00 05/24/23 14:25 35.8 81 18 93 Room Air Height & Weight Height: 5'6.00" Weight: 190lbs. 0.0oz. 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
[2023-05-24] MEDS: ONDANSETRON 4 MG ORAL DISSOLVE TABLET PO PRN (20:15)
[2023-05-24] MEDS: DOCUSATE SODIUM 100 MG CAPSULE PO SCH (20:21)
[2023-05-24] MEDS: SENNOSIDES 8.6 MG TABLET PO SCH (20:21)
[2023-05-25] MEDS: niCARdipine INJECTION 50 MG in NS (IVPB) 250 ML 230 ML IV SCH (04:20)
[2023-05-25 04:29] LABS: BASOPHILS % (AUTO) 1 % (0-10); EOSINOPHILS # (AUTO) 0.1 10^3/uL (0.0-0.3); EOSINOPHILS % (AUTO) 2 % (0-10); HEMATOCRIT 37 % (35-52); LYMPHOCYTES # (AUTO) 1.6 10^3/uL (1.0-4.0); LYMPHOCYTES % (AUTO) 30 % (12-44); MEAN CORPUSCULAR HEMOGLOBIN 31 pg (25-34); MEAN CORPUSCULAR HGB CONC 33 g/dL (32-36); MEAN CORPUSCULAR VOLUME 96 fL (80-99); MEAN PLATELET VOLUME 9.5 fL (9.0-12.2); MONOCYTES # (AUTO) 0.6 10^3/uL (0.0-1.0); MONOCYTES % (AUTO) 10 % (0-12); NEUTROPHILS # (AUTO) 3.2 10^3/uL (1.8-7.8); NEUTROPHILS % (AUTO) 58 % (42-75); PLATELET COUNT 267 10^3/uL (130-400); WHITE BLOOD COUNT 5.5 10^3/uL (4.3-11.0)
[2023-05-25 04:53] LABS: ALBUMIN 3.4 GM/DL (3.2-4.5); POTASSIUM 3.9 MMOL/L (3.6-5.0)
[2023-05-25 04:54] LABS: CALCIUM 9.1 MG/DL (8.5-10.1)
[2023-05-25 04:56] LABS: TOTAL PROTEIN 6.1 GM/DL (6.4-8.2)
[2023-05-25 04:57] LABS: BILIRUBIN,TOTAL 0.4 MG/DL (0.1-1.0)
[2023-05-25 04:59] LABS: CREATININE SERUM 0.92 MG/DL (0.60-1.30); PHOSPHORUS 3.7 MG/DL (2.3-4.7)
[2023-05-25] MEDS: ONDANSETRON 4 MG ORAL DISSOLVE TABLET PO PRN (05:19)
[2023-05-25] MEDS ORDERED: POTASSIUM CL 10MEQ/50ML IVPB 50 ML IV SCH (06:00)
[2023-05-25] MEDS ORDERED: POTASSIUM CHLORIDE 20 MEQ TABLET PO SCH (06:00)
[2023-05-25] MEDS ORDERED: POTASSIUM CHLORIDE 20 MEQ TABLET PO ONE (06:00)
[2023-05-25] MEDS ORDERED: MAGNESIUM 1 GM/100 ML IVPB 100 ML IV SCH (06:00)
--- NOTE | 2023-05-25 08:05 | History & Physical ---
ALIDA CORDOBA 05/25/23 0804: History of Present Illness History of Present Illness Reason for visit/HPI 87 year old female with a history of hypertension presented yesterday to the ER for dizziness and elevated blood pressure. Patient says she was sitting outside with her grandchildren when symptoms started. Patient reported feeling dizzy and immediately sat down, says she could have passed out, but doesnt remember too much of it. Patient reports having a systolic over 240 when she checked it at home. Patient says she has had similar symptoms previously and was hospitalized a few months ago for this. Patient denies having chest pain, nausea, vomitting, and shortness of breath. Patient is alert and oriented- has not had any headaches recently, nor any URI. Patient says she didnt think of taking her clonidine that she is prescribed when this episode started yesterday. Date of Admission May 24, 2023 at 17:27 Date Seen by a Provider: May 25, 2023 I consulted on this patient on 05/25/23 08:01 Attending Physician Marcela Abdalla MD Admitting Physician Admitting Physician: Gabriela Conroy DO Attending Physician: Gabriela Conroy DO Consult Allergies and Home Medications Allergies Coded Allergies: sulfamethoxazole (Verified Allergy, Unknown, 01/11/19) trimethoprim (Verified Allergy, Unknown, 01/11/19) Uncoded Allergies: SULFA (Allergy, Mild, HIVES, 04/21/10) Patient Home Medication List Ascorbate Calcium (Vitamin C) 500 Mg Tablet, 500 MG PO DAILY, (Reported) Entered as Reported by: MARCELO LANTIGUA on 11/22/21 0959 Last Action: Reviewed Clonidine HCl (Clonidine HCl) 0.1 Mg Tablet, 0.1 MG PO Q6H PRN for SBP OVER 160, (Reported) Entered as Reported by: MARCELO LANTIGUA on 05/25/23 1035 Last Action: Reviewed Irbesartan (Irbesartan) 150 Mg Tablet, 75 MG PO BID, (Reported) Entered as Reported by: MARCELO LANTIGUA on 01/23/23 0941 Last Action: Reviewed Mag Citrate/Potassium Citrate (K-mg Citrate 99-70 mg Capsule) 70 Mg-99 Mg Capsule, 1 EACH PO HS, (Reported) Entered as Reported by: MARCELO LANTIGUA on 05/25/23 1035 Last Action: Reviewed Magnesium Oxide (Magnesium) 400 Mg Magnesium Tablet, 400 MG PO HS, (Reported) Entered as Reported by: MARCELO LANTIGUA on 01/23/23940 Last Action: Reviewed Vitamin B Complex (B Complex) 1 Each Tablet, 1 EACH PO DAILY, (Reported) Entered as Reported by: MARCELO LANTIGUA on 05/25/231034 Last Action: Reviewed Vitamin D3/Vitamin K2 (Mk4) (K2 Plus D3 Tablet) 1,000 Unit-100 Mcg Tablet, 1 EACH PO DAILY, (Reported) Entered as Reported by: MARCELO LANTIGUA on 05/25/231034 Last Action: Reviewed Discontinued Medications Cholecalciferol (Vitamin D3) (Vitamin D3) 50 Mcg (2000 Unit) Tablet, 50 MCG PO DAILY, (Reported) Discontinued Reason: No Longer Taking Entered as Reported by: MARCELO LANTIGUA on 01/23/23940 Last Action: Discontinued Clonidine HCl (Clonidine HCl) 0.1 Mg Tablet, 0.1 MG PO Q6H PRN for SBP > 160 Discontinued Reason: No Longer Taking Prescribed by: GABRIELA CONROY on 01/23/231048 Last Action: Discontinued Cod Liver Oil (Cod Liver Oil) 1 Each Capsule, 1 EACH PO DAILY, (Reported) Discontinued Reason: No Longer Taking Entered as Reported by: MARCELO LANTIGUA on 01/23/23940 Last Action: Discontinued Cyanocobalamin (Vitamin B-12) (Vitamin B-12) 1,000 Mcg Tablet, 1,000 MCG PO DAILY, (Reported) Discontinued Reason: No Longer Taking Entered as Reported by: MARCELO LANTIGUA on 01/23/23940 Last Action: Discontinued Vitamin A Palmitate (Vitamin A) 3,000 Mcg (45707 Unit) Capsule, 3,000 MCG PO DAILY, (Reported) Discontinued Reason: No Longer Taking Entered as Reported by: MARCELO LANTIGUA on 01/23/23940 Last Action: Discontinued Vitamin E Mixed (Vitamin E) 400 Unit Tablet, 400 UNIT PO DAILY, (Reported) Discontinued Reason: No Longer Taking Entered as Reported by: MARCELO LANTIGUA on 01/23/23940 Last Action: Discontinued [Cardio Plus] , 2 EA PO DAILY, (Reported) Discontinued Reason: No Longer Taking Entered as Reported by: MARCELO LANTIGUA on 01/23/23940 Last Action: Discontinued [Digestive Aid] POWD, 1 EA PO DAILY, (Reported) Discontinued Reason: No Longer Taking Entered as Reported by: MARCELO LANTIGUA on 01/23/2350 Last Action: Discontinued Past Dyzuthf-Cfettp-Lemlhv Hx Patient Social History Tobacco Use?: No Smoking Status: Never a Smoker Use of E-Cig and/or Vaping dev: No Substance use?: No Alcohol Use?: No Pt feels they are or have been: No Immunizations Up To Date Tetanus Booster (TDap): More Than 5 Years PED Vaccines UTD: No Seasonal Allergies Seasonal Allergies: No Current Status status: No status: No Advance Directives: Yes Communicates: Verbally Primary Language: Sami Preferred Spoken Language: Sami Is interpretation needed?: No Sensory deficits: Vision impairment, Hearing impairment Implanted or Applied Medical D: Port-a-cath Past Medical History Surgeries: Eye Surgery, Orthopedic (arthroscopy right knee) Sleep Apnea Currently Using CPAP: No Currently Using BIPAP: No 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, Palpitations GRID TRIMMER History: Menopausal Sexually Transmitted Disease: No HIV/AIDS: No Arthritis Loss of Vision: Denies Hearing Impairment: Denies Lymphoma Blood Disorders: No Adverse Reaction/Blood Tranf: No (PT REFUSES TO TAKE BLOOD PRODUCTS DUE TO JEW) Family Medical History No Pertinent Family Hx, 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 Review of Systems Constitutional: No fever Physical Exam Vital Signs Vital Signs - First Documented 05/24/23 05/24/23 05/24/23 14:25 14:30 17:12 Temp 35.8 Pulse 81 Resp 18 B/P (MAP) 205/112 Pulse Ox 93 O2 Delivery Room Air O2 Flow Rate 2.00 Capillary Refill : Height, Weight, BMI Height: 5'6.00" Weight: 190lbs. 0.0oz. 86.824441pa; 32.35 BMI Method:Stated General Appearance: No Apparent Distress, WD/WN HEENT: PERRL/EOMI, TMs Normal Neck: Full Range of Motion, Normal Inspection Respiratory: Chest Non Tender, Lungs Clear, No Accessory Muscle Use Cardiovascular: Regular Rate, Rhythm, Normal Peripheral Pulses Gastrointestinal: Normal Bowel Sounds, No Organomegaly Extremity: Normal Capillary Refill, No Calf Tenderness Assessment/Plan Assessment and Plan Assessment: Hypertensive Emergency Hx of 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 Nausea Plan: IV fluids Continue anti-emetics Continue nicardipine drip Begin oral hypertensive medications Consult cardiology GABRIELA CONROY DO 10/12/23 2112: History of Present Illness History of Present Illness Reason for visit/HPI Chief complaint: Hypertensive urgency HPI: This is an 87-year-old female who presented to the ER with severely elevated blood pressure. Patient was admitted to the ICU on Cardene drip. Currently she is doing much better after given amlodipine and clonidine. She will go home. Time Seen by a Provider: 11:00 Allergies and Home Medications Allergies Coded Allergies: sulfamethoxazole (Verified Allergy, Unknown, 01/11/19) trimethoprim (Verified Allergy, Unknown, 01/11/19) Uncoded Allergies: SULFA (Allergy, Mild, HIVES, 04/21/10) Patient Home Medication List Home Medication List Reviewed: Yes Ascorbate Calcium (Vitamin C) 500 Mg Tablet, 500 MG PO DAILY, (Reported) Entered as Reported by: MARCELO LANTIGUA on 11/22/21958 Last Action: Reviewed Clonidine HCl (Clonidine HCl) 0.1 Mg Tablet, 0.1 MG PO Q6H PRN for SBP OVER 160, (Reported) Entered as Reported by: MARCELO LANTIGUA on 05/25/231034 Last Action: Reviewed Irbesartan (Irbesartan) 150 Mg Tablet, 75 MG PO BID, (Reported) Entered as Reported by: MARCELO LANTIGUA on 01/23/23940 Last Action: Reviewed Mag Citrate/Potassium Citrate (K-mg Citrate 99-70 mg Capsule) 70 Mg-99 Mg Capsule, 1 EACH PO HS, (Reported) Entered as Reported by: MARCELO LANTIGUA on 05/25/231034 Last Action: Reviewed Magnesium Oxide (Magnesium) 400 Mg Magnesium Tablet, 400 MG PO HS, (Reported) Entered as Reported by: MARCELO LANTIGUA on 01/23/23940 Last Action: Reviewed Vitamin B Complex (B Complex) 1 Each Tablet, 1 EACH PO DAILY, (Reported) Entered as Reported by: MARCELO LANTIGUA on 05/25/231034 Last Action: Reviewed Vitamin D3/Vitamin K2 (Mk4) (K2 Plus D3 Tablet) 1,000 Unit-100 Mcg Tablet, 1 EACH PO DAILY, (Reported) Entered as Reported by: MARCELO LANTIGUA on 05/25/231034 Last Action: Reviewed Discontinued Medications Cholecalciferol (Vitamin D3) (Vitamin D3) 50 Mcg (2000 Unit) Tablet, 50 MCG PO DAILY, (Reported) Discontinued Reason: No Longer Taking Entered as Reported by: MARCELO LANTIGUA on 01/23/23940 Last Action: Discontinued Clonidine HCl (Clonidine HCl) 0.1 Mg Tablet, 0.1 MG PO Q6H PRN for SBP > 160 Discontinued Reason: No Longer Taking Prescribed by: GABRIELA CONROY on 01/23/231048 Last Action: Discontinued Cod Liver Oil (Cod Liver Oil) 1 Each Capsule, 1 EACH PO DAILY, (Reported) Discontinued Reason: No Longer Taking Entered as Reported by: MARCELO LANTIGUA on 01/23/23940 Last Action: Discontinued Cyanocobalamin (Vitamin B-12) (Vitamin B-12) 1,000 Mcg Tablet, 1,000 MCG PO DAILY, (Reported) Discontinued Reason: No Longer Taking Entered as Reported by: MARCELO LANTIGUA on 01/23/23940 Last Action: Discontinued Vitamin A Palmitate (Vitamin A) 3,000 Mcg (48291 Unit) Capsule, 3,000 MCG PO DAILY, (Reported) Discontinued Reason: No Longer Taking Entered as Reported by: MARCELO LANTIGUA on 01/23/23940 Last Action: Discontinued Vitamin E Mixed (Vitamin E) 400 Unit Tablet, 400 UNIT PO DAILY, (Reported) Discontinued Reason: No Longer Taking Entered as Reported by: MARCELO LANTIGUA on 01/23/23940 Last Action: Discontinued [Cardio Plus] , 2 EA PO DAILY, (Reported) Discontinued Reason: No Longer Taking Entered as Reported by: MARCELO LANTIGUA on 01/23/23940 Last Action: Discontinued [Digestive Aid] POWD, 1 EA PO DAILY, (Reported) Discontinued Reason: No Longer Taking Entered as Reported by: MARCELO LANTIGUA on 01/23/23940 Last Action: Discontinued Past Skhubwi-Ocgmby-Kkshkb Hx Patient Social History Marrital Status: single Employed/Student: retired Review of Systems Constitutional: see HPI Physical Exam General Appearance: No Apparent Distress, WD/WN Respiratory: Lungs Clear, Normal Breath Sounds Cardiovascular: Regular Rate, Rhythm Assessment/Plan Assessment and Plan Hypertensive urgency Nausea Plan: Discharge home today Admission Diagnosis Admission Status: Observation Supervisory-Addendum Brief Verification & Attestation Participated in pt care: history, MDM, physical Personally performed: exam, history, MDM, supervision of care Care discussed with: Medical Student Procedures: n/a Results interpretation: Verified all documentation Verification and Attestation of Medical Student E/M Service A medical student performed and documented this service in my presence. I reviewed and verified all information documented by the medical student and made modifications to such information, when appropriate. I personally performed the physical exam and medical decision making. Gabriela Conroy, May 25, 2023,21:12 ALIDA CORDOBA May 25, 2023 08:04 GABRIELA CONROY DO May 25, 2023 21:12
[2023-05-25] MEDS: SENNOSIDES 8.6 MG TABLET PO SCH (08:50)
[2023-05-25] MEDS: DOCUSATE SODIUM 100 MG CAPSULE PO SCH (08:50)
[2023-05-25] MEDS ORDERED: VITA-246 PO (10:35)
[2023-05-25] MEDS ORDERED: CLN.1T PO (10:35)
[2023-05-25] MEDS ORDERED: VITA-189 PO (10:35)
[2023-05-25] MEDS ORDERED: MAG1CAPS5 PO (10:35)
--- NOTE | 2023-05-25 11:26 | Discharge Summary ---
Diagnosis/Chief Complaint Date of Admission May 24, 2023 at 17:27 Date of Discharge Discharge Date: May 25, 2023 Discharge Diagnosis Hypertensive urgency Discharge Summary Discharge Physical Examination Allergies: Coded Allergies: sulfamethoxazole (Verified Allergy, Unknown, 01/11/19) trimethoprim (Verified Allergy, Unknown, 01/11/19) Uncoded Allergies: SULFA (Allergy, Mild, HIVES, 04/21/10) Vitals & I&Os Vital Signs Date Time Temp Pulse Resp B/P (MAP) Pulse Ox O2 Delivery O2 Flow Rate FiO2 05/25/23 14:18 36.7 80 9 158/64 94 Room Air 0.00 General Appearance: Alert, Oriented X3, Cooperative Hospital Course Was the Problem List Reviewed?: Yes Uneventful overnight hospital course for observation due to hypertensive urgency placed on Cardene drip for an hour transition to oral antihypertensives and patient will go home and if has a recurrence we will note elevation in blood pressure and take clonidine as prescribed last visit. Labs (last 24 hrs) Laboratory Tests 05/24/23 14:30: White Blood Count 7.2, Red Blood Count 4.19, Hemoglobin 13.4, Hematocrit 40, Mean Corpuscular Volume 96, Mean Corpuscular Hemoglobin 32, Mean Corpuscular Hemoglobin Concent 33, Red Cell Distribution Width 14.6H, Platelet Count 282, Mean Platelet Volume 9.0, Immature Granulocyte % (Auto) 0, Neutrophils (%) (Auto) 45, Lymphocytes (%) (Auto) 42, Monocytes (%) (Auto) 9, Eosinophils (%) (Auto) 3, Basophils (%) (Auto) 1, Neutrophils # (Auto) 3.2, Lymphocytes # (Auto) 3.0, Monocytes # (Auto) 0.7, Eosinophils # (Auto) 0.2, Basophils # (Auto) 0.1, Immature Granulocyte # (Auto) 0.0, Prothrombin Time 13.0, INR Comment 1.0, Activated Partial Thromboplast Time 24, Sodium Level 139, Potassium Level 3.6, Chloride Level 106, Carbon Dioxide Level 18L, Anion Gap 15H, Blood Urea Nitrogen 19H, Creatinine 0.98, Estimat Glomerular Filtration Rate 55, BUN/Creatinine Ratio 19, Glucose Level 131H, Calcium Level 9.7, Corrected Calcium 9.7, Magnesium Level 2.0, Total Bilirubin 0.4, Aspartate Amino Transf (AST/SGOT) 28, Alanine Aminotransferase (ALT/SGPT) 22, Alkaline Phosphatase 85, Myoglobin 35.1, Troponin I < 0.028, B-Type Natriuretic Peptide 74.2, Total Protein 7.4, Albumin 4.0, Lipase 20 05/24/23 14:47: Influenza Type A (RT-PCR) Not Detected, Influenza Type B (RT-PCR) Not Detected, SARS-CoV-2 RNA (RT-PCR) Not Detected 05/25/23 04:09: White Blood Count 5.5, Red Blood Count 3.82, Hemoglobin 12.0, Hematocrit 37, Mean Corpuscular Volume 96, Mean Corpuscular Hemoglobin 31, Mean Corpuscular Hemoglobin Concent 33, Red Cell Distribution Width 14.6H, Platelet Count 267, Mean Platelet Volume 9.5, Immature Granulocyte % (Auto) 0, Neutrophils (%) (Auto) 58, Lymphocytes (%) (Auto) 30, Monocytes (%) (Auto) 10, Eosinophils (%) (Auto) 2, Basophils (%) (Auto) 1, Neutrophils # (Auto) 3.2, Lymphocytes # (Auto) 1.6, Monocytes # (Auto) 0.6, Eosinophils # (Auto) 0.1, Basophils # (Auto) 0.0, Immature Granulocyte # (Auto) 0.0, Sodium Level 139, Potassium Level 3.9, Chloride Level 105, Carbon Dioxide Level 22, Anion Gap 12, Blood Urea Nitrogen 16, Creatinine 0.92, Estimat Glomerular Filtration Rate 60, BUN/Creatinine Ratio 17, Glucose Level 96, Calcium Level 9.1, Corrected Calcium 9.6, Magnesium Level 2.0, Total Bilirubin 0.4, Aspartate Amino Transf (AST/SGOT) 25, Alanine Aminotransferase (ALT/SGPT) 17, Alkaline Phosphatase 74, Total Protein 6.1L, Albumin 3.4, Phosphorus Level 3.7 Pending Labs Laboratory Tests 05/24/23 14:30: White Blood Count 7.2, Red Blood Count 4.19, Hemoglobin 13.4, Hematocrit 40, Mean Corpuscular Volume 96, Mean Corpuscular Hemoglobin 32, Mean Corpuscular Hemoglobin Concent 33, Red Cell Distribution Width 14.6, Platelet Count 282, Mean Platelet Volume 9.0, Immature Granulocyte % (Auto) 0, Neutrophils (%) (Auto) 45, Lymphocytes (%) (Auto) 42, Monocytes (%) (Auto) 9, Eosinophils (%) (Auto) 3, Basophils (%) (Auto) 1, Neutrophils # (Auto) 3.2, Lymphocytes # (Auto) 3.0, Monocytes # (Auto) 0.7, Eosinophils # (Auto) 0.2, Basophils # (Auto) 0.1, Immature Granulocyte # (Auto) 0.0, Prothrombin Time 13.0, INR Comment 1.0, Activated Partial Thromboplast Time 24, Sodium Level 139, Potassium Level 3.6, Chloride Level 106, Carbon Dioxide Level 18, Anion Gap 15, Blood Urea Nitrogen 19, Creatinine 0.98, Estimat Glomerular Filtration Rate 55, BUN/Creatinine Ratio 19, Glucose Level 131, Calcium Level 9.7, Corrected Calcium 9.7, Magnesium Level 2.0, Total Bilirubin 0.4, Aspartate Amino Transf (AST/SGOT) 28, Alanine Aminotransferase (ALT/SGPT) 22, Alkaline Phosphatase 85, Myoglobin 35.1, Troponin I < 0.028, B-Type Natriuretic Peptide 74.2, Total Protein 7.4, Albumin 4.0, Lipase 20 05/24/23 14:47: Influenza Type A (RT-PCR) Not Detected, Influenza Type B (RT-PCR) Not Detected, SARS-CoV-2 RNA (RT-PCR) Not Detected 05/25/23 04:09: White Blood Count 5.5, Red Blood Count 3.82, Hemoglobin 12.0, Hematocrit 37, Mean Corpuscular Volume 96, Mean Corpuscular Hemoglobin 31, Mean Corpuscular Hemoglobin Concent 33, Red Cell Distribution Width 14.6, Platelet Count 267, Mean Platelet Volume 9.5, Immature Granulocyte % (Auto) 0, Neutrophils (%) (Auto ) 58, Lymphocytes (%) (Auto) 30, Monocytes (%) (Auto) 10, Eosinophils (%) (Auto) 2, Basophils (%) (Auto) 1, Neutrophils # (Auto) 3.2, Lymphocytes # (Auto) 1.6, Monocytes # (Auto) 0.6, Eosinophils # (Auto) 0.1, Basophils # (Auto) 0.0, Immature Granulocyte # (Auto) 0.0, Sodium Level 139, Potassium Level 3.9, Chloride Level 105, Carbon Dioxide Level 22, Anion Gap 12, Blood Urea Nitrogen 16, Creatinine 0.92, Estimat Glomerular Filtration Rate 60, BUN/Creatinine Ratio 17, Glucose Level 96, Calcium Level 9.1, Corrected Calcium 9.6, Magnesium Level 2.0, Total Bilirubin 0.4, Aspartate Amino Transf (AST/SGOT) 25, Alanine Aminotransferase (ALT/SGPT) 17, Alkaline Phosphatase 74, Total Protein 6.1, Albumin 3.4, Phosphorus Level 3.7 Discharge Home Medications: Active Scripts Active Reported K2 Plus D3 Tablet (Vitamin D3/Vitamin K2 (Mk4)) 1,000 Unit-100 Mcg Tablet 1 Each PO DAILY K-mg Citrate 99-70 mg Capsule (Mag Citrate/Potassium Citrate) 70 Mg-99 Mg Cap hubert 1 Each PO HS B Complex (Vitamin B Complex) 1 Each Tablet 1 Each PO DAILY Clonidine HCl 0.1 Mg Tablet 0.1 Mg PO Q6H PRN Magnesium (Magnesium Oxide) 400 Mg Magnesium Tablet 400 Mg PO HS Irbesartan 150 Mg Tablet 75 Mg PO BID TAKES OF A 150MG TAB Vitamin C (Ascorbate Calcium) 500 Mg Tablet 500 Mg PO DAILY Instructions to patient/family Please see electronic discharge instructions given to patient. LESLIE CONROY DO May 25, 2023 11:26
[2023-05-25 14:18] VITALS: BP 158/64
== END 2023-05-25 14:13 | disposition home or self-care (01) ==
LOC: EDUNIT# 14:28 → ER 14:29 → ICU 17:27 → UNDOADMOB 17:27 → ICU 18:06 → UNDODISOB 05-25 14:13
PROVIDERS: ADMIT Internal Medicine; ATTEND Internal Medicine
DX: I16.0 Hypertensive urgency (principal); I10 Essential (primary) hypertension; Z79.899 Other long term (current) drug therapy
CPT/HCPCS: 70450; 71045; 80053 ×2; 83690; 83735 ×2; 83874; 83880; 84100; 84484; 85025 ×2; 85610; 85730; 87636; 93005; 93041; 96372; 99284; G0378; 36415

== ENCOUNTER 2023-06-01 05:35 | Outpatient (CLI) | payer MEDICARE, OTHER ==
[~2023-06-01] VITALS: Ht 167.6 cm; Wt 92.7 kg
[~2023-06-01 05:35] MED LIST changes: +MAG1CAPS5 PO; +VITA-189 PO; +VITA-246 PO
[2023-06-01] MEDS ORDERED: [UNRECOGNIZED DRUG - CODE] PO (09:33)
== END 2023-06-01 10:04 | disposition home or self-care (01) ==
LOC: PREOP 05:35
PROVIDERS: ATTEND Surgery
DX: Z01.818 Encounter for other preprocedural examination (principal)

== ENCOUNTER 2023-06-08 11:06 | Day surgery (SDC) | payer MEDICARE, OTHER ==
[~2023-06-08] VITALS: Ht 167.6 cm; Wt 92.7 kg
[2023-06-08] VITALS (7 sets, daily range): BP systolic 101–179; BP diastolic 42–77
[~2023-06-08 11:06] MED LIST changes: +[UNRECOGNIZED DRUG - CODE] PO
[2023-06-08] MEDS ORDERED: LACTATED RINGERS 1,000 ML 1,000 ML IV PRN (11:15)
[2023-06-08] MEDS ORDERED: ceFAZolin INJECTION 2,000 MG in NS (IVPB) 50 ML 50 ML IV ONE (11:15)
--- NOTE | 2023-06-08 11:46 | Progress Note-Pre Operative ---
Pre-Operative Progress Note Date H&P Reviewed: Jun 08, 2023 Time H&P Reviewed: 11:46 History & Physical: H&P Reviewed, Patient Examed, No changes noted Pre-Operative Diagnosis: hx lymphoma WILLIE STAPLES DO Jun 08, 2023 11:46
[2023-06-08] MEDS ORDERED: LIDOCAINE 2% w/EPI 1:100,000 20 ML VIAL ONE (13:11)
[2023-06-08] MEDS ORDERED: LIDOCAINE 2% w/EPI 1:100,000 20 ML VIAL INJ ONE (14:48)
--- NOTE | 2023-06-08 15:10 | Anesthesia-General Post-Op ---
MAC Patient Condition Mental Status/LOC: Same as Preop Cardiovascular: Satisfactory Nausea/Vomiting: Absent Respiratory: Satisfactory Pain: Controlled Complications: Absent Post Op Complications Complications None Follow Up Care/Instructions Patient Instructions None needed. Anesthesiology Discharge Order Discharge Order Patient is awake in PACU and doing well, no complaints, stable vital signs, no apparent adverse anesthesia problems. No complications reported per nursing. DNIA GAYTAN DO Jun 08, 2023 15:10
[2023-06-08] MEDS ORDERED: morphine INJ 10 MG/ML 1ML (SYR OR VIAL) IVP ONE (15:15)
[2023-06-08] MEDS ORDERED: ONDANSETRON INJECTION 4 MG/2 ML (SDV) IVP PRN (15:15)
--- NOTE | 2023-06-08 15:17 | Discharge Inst-Simple/Standard ---
Discharge Inst-Standard Patient Instructions/Follow Up Plan of Care/Instructions/FU: 2 weeks Anna Marie Activity as Tolerated: Yes Discharge Diet: Regular Diet Other Inst to Patient Follow up Appt: Make appointment for 2 week. Instructions: No lifting greater than 10 pounds. No strenuous activity. May shower in 24 hours, no tub bath or soaking. Use incentive spirometer at home as directed. No Smoking Skin/Wound Care: You have special glue over your incision that will fall off on it's own. Symptoms to Report: Appetite Changes, Extremity Discoloration, Numbness/Tingling, Swelling Increased, Bleeding Excessive, Eyesight Changes, Pain Increased, Urine Color Change, Constipation(Persistent), Fever over 101 degree F, Pain/Pressure in chest, Urinating Difficulty, Cough Up/Vomit Blood, Heart Beat Irreg/Pounding, Pain/Pressure in jaw, Vaginal Bleeding Increase, Cramps in feet or legs, Lightheadedness, Pain/Pressure in shoulder, Diarrhea(Persistent), Memory Changes Suddenly, Questions/Concerns, Weight gain consecutive days, Dizziness/Fainting, Nausea/Vomiting, Shortness of Breath, Weight gain over 2 pounds If questions or concerns contact your physician Or seek help at emergency department. WILLIE STAPLES DO Jun 08, 2023 15:17
--- NOTE | 2023-06-08 15:18 | Progress Note-Post Operative ---
Post-Operative Progess Note Surgeon (s)/Draw End Hand (s) Surgeon WILLIE STAPLES DO Draw End Hand: na Pre-Operative Diagnosis hx lymphoma Post-Operative Diagnosis same Procedure & Operative Findings Date of Procedure 06/08/23 Procedure Performed/Findings Follow up Appt: Make appointment for 2 weeks. Instructions: No lifting greater than 10 pounds. No strenuous activity. May shower in 24 hours, no tub bath or soaking. Use incentive spirometer at home as directed. No Smoking Skin/Wound Care: You have special glue over incision, it will fall off on it's own. Symptoms to Report: Appetite Changes, Extremity Discoloration, Numbness/Tingling, Swelling Incr eased, Bleeding Excessive, Eyesight Changes, Pain Increased, Urine Color Change, Constipation(Persistent), Fever over 101 degree F, Pain/Pressure in chest, Urinating Difficulty, Cough Up/Vomit Blood, Heart Beat Irreg/Pounding, Pain/Pressure in jaw, Vaginal Bleeding Increase, Cramps in feet or legs, Lightheadedness, Pain/Pressure in shoulder, Diarrhea(Persistent), Memory Changes Suddenly, Questions/Concerns, Weight gain consecutive days, Dizziness/Fainting, Nausea/Vomiting, Shortness of Breath, Weight gain over 2 pounds. If eyes or skin turn yellow notify physician. If questions or concerns contact your physician Or seek help at emergency department. Anesthesia Type mac c local Estimated Blood Loss Estimated blood loss (mL): minimal Specimens/Packing Specimens Removed WILLIE Avila DO Jun 08, 2023 15:18
== END 2023-06-08 16:37 | disposition home or self-care (01) ==
LOC: SDC 11:06
PROVIDERS: ATTEND Surgery
DX: T82.514A Breakdown (mechanical) of infusion catheter, initial encounter (principal); Z85.72 Personal history of non-Hodgkin lymphomas; E66.9 Obesity, unspecified; Z68.33 Body mass index [BMI] 33.0-33.9, adult; G47.33 Obstructive sleep apnea (adult) (pediatric)
CPT/HCPCS: 87081